=== PATIENT | male | born 1965 | race Caucasian/White ===

== ENCOUNTER 2017-05-26 15:34 | Inpatient (IN) | payer BC ==
[~2017-05-26] VITALS: Ht 180.3 cm; Wt 87.8 kg
[~2017-05-26 15:34] MED LIST: ATOR40TA PO; INSU100C SQ; INSU100V8 SQ; LEVO750T5 PO; LISI40TA PO; OXYC-328 PO; PIOG45TA40 PO
[2017-05-26 17:40] VITALS: BP 150/93
[2017-05-26] MEDS ORDERED: DEXT30CA6 PO (19:01)
[2017-05-26 19:15] VITALS: BP 136/75
[2017-05-26] MEDS ORDERED: DEXTROSE 50% 25 GM / 50ML DISP.SYRIN. IV PRN (19:30)
[2017-05-26] MEDS ORDERED: VANCOMYCIN 2 GM in IV NORMAL SALINE 500ML BAG 500 ML IV SCH (19:45)
[2017-05-26] MEDS ORDERED: oxyCODONE/APAP 10/325 1 TAB TABLET PO PRN (19:45)
[2017-05-26] MEDS: PIPERACILLIN/TAZOBACTAM 3.375 GM in IV NORMAL SALINE 50ML 50 ML IV SCH (20:00)
[2017-05-26 20:07] LABS: BASO # 0.1 x10^3/uL (0.0-0.2); BASO % 1 % (0-3); EOS % 1 % (0-3); HEMATOCRIT 44.4 % (39.0-53.0); HEMOGLOBIN 15.1 g/dL (13.0-17.5); LYMPH % 24 % (24-48); MEAN CORPUSCULAR HEMOGLOBIN 31 pg (25-35); MEAN CORPUSCULAR HGB CONC 34 g/dL (31-37); MEAN CORPUSCULAR VOLUME 92 fL (79-100); MONO % 10 % (0-9); NEUT % 65 % (31-73); PLATELET COUNT 238 x10^3/uL (140-400); RED BLOOD COUNT 4.84 x10^6/uL (4.30-5.70); RED CELL DISTRIBUTION WIDTH 12.6 % (11.5-14.5); WHITE BLOOD COUNT 8.3 x10^3/uL (4.0-11.0)
[2017-05-26 20:36] LABS: ALBUMIN/GLOBULIN RATIO 0.7 (1.0-1.7); CALCIUM 9.2 mg/dL (8.5-10.1); GFR 79.4; POTASSIUM 4.4 mmol/L (3.5-5.1); TOTAL BILIRUBIN 0.4 mg/dL (0.2-1.0); TOTAL PROTEIN 7.2 g/dL (6.4-8.2)
[2017-05-26] MEDS ORDERED: INSULIN ASPART 300 UNITS/3 ML INSULN.PEN SQ ONE (20:45)
[2017-05-26] MEDS: INSULIN DETEMIR 300 UNITS/3 ML INSULN.PEN. SQ SCH (21:20)
[2017-05-26] MEDS: VANCOMYCIN PER PHARMACY MC PRN (21:28)
[2017-05-26] MEDS ORDERED: OXYC1TAB9 PO (22:54)
[2017-05-26 23:14] VITALS: BP 152/88
[2017-05-26] MEDS: oxyCODONE/APAP 10/325 1 TAB TABLET PO PRN (23:19)
[2017-05-27] MEDS: PIPERACILLIN/TAZOBACTAM 3.375 GM in IV NORMAL SALINE 50ML 50 ML IV SCH ×5 (00:06→23:46)
[2017-05-27 03:12] VITALS: BP 142/74
[2017-05-27] MEDS: oxyCODONE/APAP 10/325 1 TAB TABLET PO PRN ×4 (06:26→23:47)
[2017-05-27 07:00] VITALS: BP 136/87
[2017-05-27] MEDS ORDERED: INSULIN LISPRO 30 UNIT SQ SCH (07:30)
[2017-05-27] MEDS: INSULIN ASPART 300 UNITS/3 ML INSULN.PEN SQ SCH ×5 (08:01→17:31)
[2017-05-27] MEDS: NON FORMULARY ITEM (Dextroamphetamine/Amphetamine (Adderall Xr 30 Mg Capsule) 1 CAP) PO SCH (08:07)
--- NOTE | 2017-05-27 08:57 | PDOC2 ---
CONSULT Date of Consult Date of Consult DATE: 05/27/17 TIME: 08:49 Reason for Consult Reason for Consult: R great toe osteo Referring Physician Referring Physician: Clarence Identification/Chief Complaint Chief Complaint R great toe pain Problems: Source Source: Patient History of Present Illness Reason for Visit: R great toe wound, non healing for several months, Doesnt remember any antecedent trauma. Pain is worse with ambulation, radiates to foot. Feels better at rest. Also c/o leg pain, R > L, with activity, that is similar to his symptoms that he had prior to his RLE bypass procedure Past Medical History Cardiovascular: Other Pulmonary: No pertinent hx CENTRAL NERVOUS SYSTEM: Periperal neuropathy (PVD) Endocrine: Diabetes Past Surgical History Past Surgical History L 5th finger, vascular bypass Family History Family History: Hypertension Social History 1 pack per day ALCOHOL: occassional Current Medications Current Medications Current Medications Piperacillin Sod/ Tazobactam Sod 3.375 gm/Sodium Chloride 50 ml @ 100 mls/hr Q6HRS IV Last administered on 05/27/17 06:26; Start 05/26/17 at 20:00 Vancomycin HCl (Vanco Per Pharmacy) 1 each PRN DAILY PRN MC SEE COMMENTS Last administered on 05/26/17 21:28; Start 05/26/17 at 19:30 Insulin Aspart (NovoLOG) 0-5 UNITS TIDWMEALS SQ Last administered on 05/27/17 08:01; Start 05/27/17 at 08:00 Dextrose (Dextrose 50%-Water Syringe) 12.5 gm PRN Q15MIN PRN IV SEE COMMENTS; Start 05/26/17 at 19:30 Oxycodone/ Acetaminophen (Percocet 10/325) 1 tab PRN Q4HRS PRN PO PAIN; Start 05/26/17 at 19:45 Non-Formulary Medication 1 cap DAILY PO ; Start 05/27/17 at 09:00; Status UNV Insulin Detemir (Levemir) 60 units QHS SQ Last administered on 05/26/17 21:20; Start 05/26/17 at 21:00 Non-Formulary Medication 30 unit DAILYAC SQ ; Start 05/27/17 at 07:30; Stop at 08:06; Status DC Vancomycin HCl 2 gm/Sodium Chloride 500 ml @ 250 mls/hr Q24H IV Last administered on 05/26/17 21:13; Start 05/26/17 at 19:45 Insulin Aspart (NovoLOG) 7 units 1X ONCE SQ Last administered on 05/26/17 21: 19; Start 05/26/17 at 20:45; Stop 05/26/17 at 20:46; Status DC Vancomycin HCl 1.25 gm/Sodium Chloride 250 ml @ 167 mls/hr Q12H IV ; Start 05/27 at 09:30 Vancomycin HCl 1 each 1X ONCE MC ; Start 05/28/17 at 09:00; Stop 05/28/17 at 09: 01 Oxycodone/ Acetaminophen (Percocet 10/325) 2 tab PRN Q4HRS PRN PO PAIN Last administered on 05/27/17 06:26; Start 05/26/17 at 23:00 Insulin Aspart (NovoLOG) 30 units TIDAC SQ ; Start 05/27/17 at 11:30 Active Scripts Active Reported Oxycodone-Acetaminophen 10-325 (Oxycodone Hcl/Acetaminophen) 1 Each Tablet 2 Tab PO PRN Q4HRS PRN Adderall Xr 30 Mg Capsule (Dextroamphetamine/Amphetamine) 30 Mg Cap.er.24h 1 Cap PO DAILY Humalog (Insulin Lispro) 100 Unit/1 Ml Cartridge 30 Unit SQ DAILYAC Lantus (Insulin Glargine,Hum.rec.anlog) 100 Unit/1 Ml Vial 60 Unit SQ HS Percocet 10-325 Mg Tablet (Oxycodone/Acetaminophen) 1 Each Tablet 1 Tab PO Q4HRS PRN Allergies Allergies: Coded Allergies: sulfamethoxazole (Verified Allergy, Intermediate, Rash, 07/12/15) trimethoprim (Verified Allergy, Intermediate, Rash, 07/12/15) ROS General: No: Chills, Night Sweats, Fatigue, Malaise, Appetite, Other PSYCHOLOGICAL ROS: No: Anxiety, Behavioral Disorder, Concentration difficultie , Decreased libido, Depression, Disorientation, Hallucinations, Hostility, Irritablity, Memory difficulties, Mood Swings, Obsessive thoughts, Physical abuse, Sexual abuse, Sleep disturbances, Suicidal ideation, Other Eyes: No Blurry vision, No Decreased vision, No Double vision, No Dry eyes, No Excessive tearing, No Eye Pain, No Itchy Eyes, No Loss of vision, No Photophobia , No Scotomata, No Uses contacts, No Uses glasses, No Other HEENT: No: Heacaches, Visual Changes, Hearing change, Nasal congestion, Nasal discharge, Oral lesions, Sinus pain, Sore Throat, Epistaxis, Sneezing, Snoring, Tinnitus, Vertigo, Vocal changes, Other Hematological and Lymphatic: No: Bleeding Problems, Blood Clots, Blood Transfusions, Brusing, Night Sweats, Pallor, Swollen Lymph Nodes, Other ENDOCRINE: No: Breast Changes, Galactorrhea, Hair Pattern Changes, Hot Flashes , Malaise/lethargy, Mood Swings, Palpitations, Polydipsia/polyuria, Skin Changes , Temperature Intolerance, Unexpected Weight Changes, Other Respiratory: No: Cough, Hemoptysis, Orthopnea, Pleuritic Pain, Shortness of breath, SOB with excertion, Sputum Changes, Stridor, Tachypnea, Wheezing, Other Cardiovascular: No Chest Pain, No Palpitations, No Orthopnea, No Paroxysmal Noc. Dyspnea, No Edema, No Lt Headedness, No Other Musculoskeletal: Yes Joint Pain, Yes Muscle Pain, Yes Muscular Weakness Neurological: Yes Numbness/Tingling Physical Exam General: Alert, Oriented X3 HEENT: Atraumatic, PERRLA Lungs: Clear to auscultation, Normal air movement Heart: Regular rate Abdomen: Normal bowel sounds, Soft Extremities: No cyanosis, No edema, Other (unable to palpate DP bilaterally) Neuro: Strength at 5/5 X4 ext, Other (decreased sensation bilateral feet) Psych/Mental Status: Mental status NL, Mood NL MUSCULOSKELETAL: Other (2 cm wound with dry eschar over medial R great toe. surrounding erythema) Vitals VITALS Vital Signs Date Time Temp Pulse Resp B/P (MAP) Pulse Ox O2 Delivery O2 Flow Rate FiO2 05/27/17 07:30 Room Air 05/27/17 07:00 97.7 83 16 136/87 (103) 95 97.7 Labs Labs Laboratory Tests Test 05/26/17 19:50 05/26/17 20:44 05/27/17 07:27 White Blood Count 8.3 x10^3/uL (4.0-11.0) Red Blood Count 4.84 x10^6/uL (4.30-5.70) Hemoglobin 15.1 g/dL (13.0-17.5) Hematocrit 44.4 % (39.0-53.0) Mean Corpuscular Volume 92 fL (79-100) Mean Corpuscular Hemoglobin 31 pg (25-35) Mean Corpuscular Hemoglobin Concent 34 g/dL (31-37) Red Cell Distribution Width 12.6 % (11.5-14.5) Platelet Count 238 x10^3/uL (140-400) Neutrophils (%) (Auto) 65 % (31-73) Lymphocytes (%) (Auto) 24 % (24-48) Monocytes (%) (Auto) 10 % (0-9) Eosinophils (%) (Auto) 1 % (0-3) Basophils (%) (Auto) 1 % (0-3) Neutrophils # (Auto) 5.4 x10^3uL (1.8-7.7) Lymphocytes # (Auto) 2.0 x10^3/uL (1.0-4.8) Monocytes # (Auto) 0.8 x10^3/uL (0.0-1.1) Eosinophils # (Auto) 0.1 x10^3/uL (0.0-0.7) Basophils # (Auto) 0.1 x10^3/uL (0.0-0.2) Erythrocyte Sedimentation Rate 26 (0-15) Sodium Level 130 mmol/L (136-145) Potassium Level 4.4 mmol/L (3.5-5.1) Chloride Level 93 mmol/L (98-107) Carbon Dioxide Level 28 mmol/L (21-32) Anion Gap 9 (6-14) Blood Urea Nitrogen 19 mg/dL (8-26) Creatinine 1.0 mg/dL (0.7-1.3) Estimated GFR (Cockcroft-Gault) 79.4 BUN/Creatinine Ratio 19 (6-20) Glucose Level 525 mg/dL (70-99) Calcium Level 9.2 mg/dL (8.5-10.1) Total Bilirubin 0.4 mg/dL (0.2-1.0) Aspartate Amino Transf (AST/SGOT) 17 U/L (15-37) Alanine Aminotransferase (ALT/SGPT) 40 U/L (16-63) Alkaline Phosphatase 260 U/L (46-116) Total Protein 7.2 g/dL (6.4-8.2) Albumin 3.0 g/dL (3.4-5.0) Albumin/Globulin Ratio 0.7 (1.0-1.7) Glucose (Fingerstick) 507 mg/dL (70-99) 224 mg/dL (70-99) Laboratory Tests Test 05/26/17 19:50 05/26/17 20:44 05/27/17 07:27 White Blood Count 8.3 x10^3/uL (4.0-11.0) Red Blood Count 4.84 x10^6/uL (4.30-5.70) Hemoglobin 15.1 g/dL (13.0-17.5) Hematocrit 44.4 % (39.0-53.0) Mean Corpuscular Volume 92 fL (79-100) Mean Corpuscular Hemoglobin 31 pg (25-35) Mean Corpuscular Hemoglobin Concent 34 g/dL (31-37) Red Cell Distribution Width 12.6 % (11.5-14.5) Platelet Count 238 x10^3/uL (140-400) Neutrophils (%) (Auto) 65 % (31-73) Lymphocytes (%) (Auto) 24 % (24-48) Monocytes (%) (Auto) 10 % (0-9) Eosinophils (%) (Auto) 1 % (0-3) Basophils (%) (Auto) 1 % (0-3) Neutrophils # (Auto) 5.4 x10^3uL (1.8-7.7) Lymphocytes # (Auto) 2.0 x10^3/uL (1.0-4.8) Monocytes # (Auto) 0.8 x10^3/uL (0.0-1.1) Eosinophils # (Auto) 0.1 x10^3/uL (0.0-0.7) Basophils # (Auto) 0.1 x10^3/uL (0.0-0.2) Erythrocyte Sedimentation Rate 26 (0-15) Sodium Level 130 mmol/L (136-145) Potassium Level 4.4 mmol/L (3.5-5.1) Chloride Level 93 mmol/L (98-107) Carbon Dioxide Level 28 mmol/L (21-32) Anion Gap 9 (6-14) Blood Urea Nitrogen 19 mg/dL (8-26) Creatinine 1.0 mg/dL (0.7-1.3) Estimated GFR (Cockcroft-Gault) 79.4 BUN/Creatinine Ratio 19 (6-20) Glucose Level 525 mg/dL (70-99) Calcium Level 9.2 mg/dL (8.5-10.1) Total Bilirubin 0.4 mg/dL (0.2-1.0) Aspartate Amino Transf (AST/SGOT) 17 U/L (15-37) Alanine Aminotransferase (ALT/SGPT) 40 U/L (16-63) Alkaline Phosphatase 260 U/L (46-116) Total Protein 7.2 g/dL (6.4-8.2) Albumin 3.0 g/dL (3.4-5.0) Albumin/Globulin Ratio 0.7 (1.0-1.7) Glucose (Fingerstick) 507 mg/dL (70-99) 224 mg/dL (70-99) Images Images Foot xrays interpreted by myself, erosion of distal phalanx R great toe Assessment/Plan Assessment/Plan R great toe osteo, hx DM and PVD OR tomorrow morning for amp Doppler to check vessels, may need Vascular consult BRYAN CHEEMA II, MD May 27, 2017 08:56
[2017-05-27] MEDS ORDERED: VANCOMYCIN 1.25 GM in IV NORMAL SALINE 250ML 250 ML IV SCH (09:30)
--- NOTE | 2017-05-27 09:31 | PDOC ---
GENERAL General: vss and afebrile. wbc normal and esr only 26. has osteomyelitis on mri of distal phalanx of right great toe with osteomyelitis. sugars very high on admit and better this am. can't dictated H&P due to system being down. ortho and ID consulted. prior vascular intervention on right leg with claudication symptoms now so will need vascular eval prior to amputation. discussed with ortho. Problems: VITAL SIGNS Vital Signs: Vital Signs Date Time Temp Pulse Resp B/P (MAP) Pulse Ox O2 Delivery O2 Flow Rate FiO2 05/27/17 07:45 Room Air 05/27/17 07:00 97.7 83 16 136/87 (103) 95 97.7 I & O I & O Intake and Output 05/27/17 07:00 Intake Total 1690 ml Balance 1690 ml Intake Oral 1140 ml IV Total 550 ml # Voids 3 ALLERGIES Allergies: Allergies Coded Allergies Type Severity Reaction Last Updated Verified sulfamethoxazole Allergy Intermediate Rash 07/12/15 Yes trimethoprim Allergy Intermediate Rash 07/12/15 Yes MEDS Medications: Current Medications Medications (Trade) Dose Ordered Sig/Tory Start Time Stop Time Status Last Admin Dose Admin Dextrose (Dextrose 50%-Water Syringe) 12.5 gm PRN Q15MIN PRN 05/26/17 19:30 Insulin Aspart (NovoLOG) 30 units TIDAC 05/27/17 11:30 Insulin Detemir (Levemir) 60 units QHS 05/26/17 21:00 05/26/17 21:20 60 UNITS Non-Formulary Medication 30 unit DAILYAC 05/27/17 07:30 05/27/17 08:06 DC Oxycodone/ Acetaminophen (Percocet 10/325) 2 tab PRN Q4HRS PRN 05/26/17 23:00 05/27/17 06:26 2 TAB Piperacillin Sod/ Tazobactam Sod 3.375 gm/Sodium Chloride 50 ml @ 100 mls/hr Q6HRS 05/26/17 20:00 05/27/17 06:26 100 MLS/HR Vancomycin HCl 1 each 1X ONCE 05/28/17 09:00 05/28/17 09:01 Vancomycin HCl (Vanco Per Pharmacy) 1 each PRN DAILY PRN 05/26/17 19:30 05/26/17 21:28 1 EACH Vancomycin HCl 1.25 gm/Sodium Chloride 250 ml @ 167 mls/hr Q12H 05/27/17 09:30 Vancomycin HCl 2 gm/Sodium Chloride 500 ml @ 250 mls/hr Q24H 05/26/17 19:45 05/26/17 21:13 250 MLS/HR LAB Lab: Laboratory Tests Test 05/26/17 19:50 05/26/17 20:44 05/27/17 07:27 White Blood Count 8.3 x10^3/uL (4.0-11.0) Red Blood Count 4.84 x10^6/uL (4.30-5.70) Hemoglobin 15.1 g/dL (13.0-17.5) Hematocrit 44.4 % (39.0-53.0) Mean Corpuscular Volume 92 fL (79-100) Mean Corpuscular Hemoglobin 31 pg (25-35) Mean Corpuscular Hemoglobin Concent 34 g/dL (31-37) Red Cell Distribution Width 12.6 % (11.5-14.5) Platelet Count 238 x10^3/uL (140-400) Neutrophils (%) (Auto) 65 % (31-73) Lymphocytes (%) (Auto) 24 % (24-48) Monocytes (%) (Auto) 10 % (0-9) Eosinophils (%) (Auto) 1 % (0-3) Basophils (%) (Auto) 1 % (0-3) Neutrophils # (Auto) 5.4 x10^3uL (1.8-7.7) Lymphocytes # (Auto) 2.0 x10^3/uL (1.0-4.8) Monocytes # (Auto) 0.8 x10^3/uL (0.0-1.1) Eosinophils # (Auto) 0.1 x10^3/uL (0.0-0.7) Basophils # (Auto) 0.1 x10^3/uL (0.0-0.2) Erythrocyte Sedimentation Rate 26 (0-15) Sodium Level 130 mmol/L (136-145) Potassium Level 4.4 mmol/L (3.5-5.1) Chloride Level 93 mmol/L (98-107) Carbon Dioxide Level 28 mmol/L (21-32) Anion Gap 9 (6-14) Blood Urea Nitrogen 19 mg/dL (8-26) Creatinine 1.0 mg/dL (0.7-1.3) Estimated GFR (Cockcroft-Gault) 79.4 BUN/Creatinine Ratio 19 (6-20) Glucose Level 525 mg/dL (70-99) Calcium Level 9.2 mg/dL (8.5-10.1) Total Bilirubin 0.4 mg/dL (0.2-1.0) Aspartate Amino Transf (AST/SGOT) 17 U/L (15-37) Alanine Aminotransferase (ALT/SGPT) 40 U/L (16-63) Alkaline Phosphatase 260 U/L (46-116) Total Protein 7.2 g/dL (6.4-8.2) Albumin 3.0 g/dL (3.4-5.0) Albumin/Globulin Ratio 0.7 (1.0-1.7) Glucose (Fingerstick) 507 mg/dL (70-99) 224 mg/dL (70-99) PAT MOSHER MD May 27, 2017 09:31
--- NOTE | 2017-05-27 09:50 | RAD ---
Indication right great toe infection. AP and lateral views of the right foot were obtained. There is bony destruction involving the distal phalanx of the large toe. There is erosion of the cortical margin involving the entire tuft and medial aspect of the distal phalanx. The findings are compatible with osteomyelitis. Soft tissue swelling is additionally noted. IMPRESSION: Findings, as outlined above, associated with the distal phalanx of the great toe compatible with osteomyelitis
[2017-05-27 11:00] VITALS: BP 142/85
--- NOTE | 2017-05-27 11:53 | PDOC ---
Provider Note Provider Note VASCULAR dictation services down 51 y/o diabetic male smoker presents with pressure ulcer and suspected osteo first toe right foot. He has had a prior right fem-pop bypass on the right for claudication, symptoms re-occurred 6 mo ago. Exam weak right femoral pulse, absent pop and pedal pulses weak left femoral pulse weak left posterior tibial pulse right first toe eschar , medially right forefoot cellulitis IMP ischemic pressure ulcer right first toe PLAN: ABX, arterial imaging including probable angiogram, revascularization right foot and then digit amputation. SAM ROJAS MD May 27, 2017 11:52
[2017-05-27] MEDS: VANCOMYCIN PER PHARMACY MC PRN (13:35)
--- NOTE | 2017-05-27 14:52 | RAD ---
Indication nonhealing wound right foot. Grayscale color Doppler and spectral imaging was performed. The examination was targeted to the major arteries of the lower extremities. There is diminished flow in the right common femoral artery indicative of significant inlet disease or inherent stenosis associated with the common femoral artery. There is dampened monophasic waveform throughout the superficial femoral artery. Severely dampened monophasic waveform is seen distally in the SFA compatible with superimposed additional stenosis in the artery. The popliteal artery has a very markedly dampened monophasic waveform. Similar waveforms are seen in the posterior tibial artery the peroneal and dorsal pedal arteries. The anterior tibial artery is markedly dampened and monophasic. There is a graft from the common femoral artery into the SFA which appears occluded On the left there is a triphasic waveform associated with the common femoral artery and a biphasic waveform in the deep femoral. There are biphasic waveforms seen throughout the course of the superficial femoral artery indicative of a component of stenosis at the common femoral SFA junction. A similar biphasic waveform is seen in the popliteal artery. The posterior tibial artery has a predominantly biphasic waveform. No flow is seen in the peroneal artery. The dorsal pedal artery is dampened and monophasic. IMPRESSION: On the right there is significant disease involving the common femoral artery with additional marked stenosis in the distal SFA with significantly diminished flow to the vessels of the calf. On the left there is moderate disease but no suggested high-grade arterial stenosis in (although moderate superimposed disease in the vessels of the calf is likely).
[2017-05-27 15:00] VITALS: BP 133/80
[2017-05-27] MEDS: VANCOMYCIN 1.25 GM in IV NORMAL SALINE 250ML 250 ML IV SCH (18:12)
[2017-05-27 19:46] VITALS: BP 154/85
[2017-05-27] MEDS: INSULIN DETEMIR 300 UNITS/3 ML INSULN.PEN. SQ SCH (21:03)
[2017-05-27 23:21] VITALS: BP 143/79
[2017-05-28] VITALS (18 sets, daily range): BP systolic 128–155; BP diastolic 65–90
[2017-05-28] MEDS: VANCOMYCIN 1.25 GM in IV NORMAL SALINE 250ML 250 ML IV SCH ×2 (01:33→10:46)
[2017-05-28] MEDS: oxyCODONE/APAP 10/325 1 TAB TABLET PO PRN ×2 (05:07→17:21)
[2017-05-28] MEDS: PIPERACILLIN/TAZOBACTAM 3.375 GM in IV NORMAL SALINE 50ML 50 ML IV SCH ×3 (05:07→17:24)
[2017-05-28] MEDS: INSULIN ASPART 300 UNITS/3 ML INSULN.PEN SQ SCH ×6 (07:30→17:34)
[2017-05-28] MEDS ORDERED: fentaNYL PF VIAL 100 MCG/2 ML VIAL ONE ×2 (07:56→08:28)
[2017-05-28] MEDS ORDERED: LIDOCAINE 2% PF Vial for OR 5 ML VIAL. ONE (07:56)
[2017-05-28] MEDS ORDERED: PROPOFOL 20 ML IV ONE (07:56)
[2017-05-28] MEDS ORDERED: BUPIVACAINE MPF 0.5% 30 ML VIAL. ONE (08:01)
[2017-05-28] MEDS ORDERED: LIDOCAINE 1% PF 30 ML VIAL. ONE (08:01)
--- NOTE | 2017-05-28 08:16 | PDOC ---
GENERAL General: vss and afebrile. awake and alert. sugars little better and will increase long acting insulin and continue ss insulin. vascular surgery notes noted and agree with plan as outlined. exam stable. Problems: VITAL SIGNS Vital Signs: Vital Signs Date Time Temp Pulse Resp B/P (MAP) Pulse Ox O2 Delivery O2 Flow Rate FiO2 05/28/17 07:00 98.1 86 18 154/75 (101) 95 Room Air 98.1 I & O I & O Intake and Output 05/28/17 07:00 Intake Total 600 ml Output Total 1600 ml Balance -1000 ml Intake Oral 600 ml Output Urine Total 1600 ml # Voids 3 ALLERGIES Allergies: Allergies Coded Allergies Type Severity Reaction Last Updated Verified sulfamethoxazole Allergy Intermediate Rash 07/12/15 Yes trimethoprim Allergy Intermediate Rash 07/12/15 Yes MEDS Medications: Current Medications Medications (Trade) Dose Ordered Sig/Tory Start Time Stop Time Status Last Admin Dose Admin Bupivacaine HCl (Sensorcaine Mpf 0.5%) 30 ml STK-MED ONCE 05/28/17 08:01 05/28/17 08:02 DC Dextrose (Dextrose 50%-Water Syringe) 12.5 gm PRN Q15MIN PRN 05/26/17 19:30 Fentanyl Citrate (Fentanyl 2ml Vial) 100 mcg STK-MED ONCE 05/28/17 07:56 05/28/17 07:57 DC Insulin Aspart (NovoLOG) 30 units TIDAC 05/27/17 11:30 05/27/17 17:31 15 UNITS Insulin Detemir (Levemir) 60 units QHS 05/26/17 21:00 05/27/17 21:03 60 UNITS Lidocaine HCl 30 ml STK-MED ONCE 05/28/17 08:01 05/28/17 08:02 DC Lidocaine HCl (Lidocaine Pf 2% Vial) 5 ml STK-MED ONCE 05/28/17 07:56 05/28/17 07:57 DC Non-Formulary Medication 30 unit DAILYAC 05/27/17 07:30 05/27/17 08:06 DC Oxycodone/ Acetaminophen (Percocet 10/325) 2 tab PRN Q4HRS PRN 05/26/17 23:00 05/28/17 05:07 2 TAB Piperacillin Sod/ Tazobactam Sod 3.375 gm/Sodium Chloride 50 ml @ 100 mls/hr Q6HRS 05/26/17 20:00 05/28/17 05:07 100 MLS/HR Propofol 20 ml @ As Directed STK-MED ONCE 05/28/17 07:56 05/28/17 07:57 DC Vancomycin HCl (Vanco Per Pharmacy) 1 each PRN DAILY PRN 05/26/17 19:30 05/27/17 13:35 1 EACH Vancomycin HCl 1.25 gm/Sodium Chloride 250 ml @ 167 mls/hr Q8H 05/27/17 18:00 05/28/17 01:33 167 MLS/HR Vancomycin HCl 2 gm/Sodium Chloride 500 ml @ 250 mls/hr Q24H 05/26/17 19:45 05/27/17 12:24 DC 05/26/17 21:13 250 MLS/HR LAB Lab: Laboratory Tests Test 05/27/17 11:54 05/27/17 16:56 05/27/17 20:52 05/28/17 07:33 Glucose (Fingerstick) 353 mg/dL (70-99) 134 mg/dL (70-99) 295 mg/dL (70-99) 284 mg/dL (70-99) PAT MOSHER MD May 28, 2017 08:15
[2017-05-28] MEDS: NON FORMULARY ITEM (Dextroamphetamine/Amphetamine (Adderall Xr 30 Mg Capsule) 1 CAP) PO SCH (08:22)
--- NOTE | 2017-05-28 08:28 | PDOC ---
Provider Note Provider Note VASCULAR S: Patient without complaints, O: Alert and Ox3 VSS, afebrile right first toe eschar , medially right forefoot cellulitis BS 284 A/P: ischemic pressure ulcer right first toe Continue ABX Diabetes Management AARO with possible revascularization right foot later today YAKELIN IRWIN [employer] May 28, 2017 08:28
[2017-05-28] MEDS: IV RINGERS,LACTATED 1000ML 1,000 ML IV SCH ×2 (08:41→22:05)
[2017-05-28] MEDS ORDERED: fentaNYL PF VIAL 100 MCG/2 ML VIAL IV ONE (08:45)
[2017-05-28] MEDS ORDERED: DEXAMETHASONE SOD PHOS 20 MG/5 ML VIAL. ONE (09:02)
[2017-05-28] MEDS ORDERED: SEVOFLURANE 31 TO 60 MINUTES. IH ONE (09:02)
[2017-05-28] MEDS ORDERED: ONDANSETRON PF 4 MG/2 ML VIAL. ONE ×2 (09:02→09:15)
--- NOTE | 2017-05-28 09:06 | PDOC ---
Infectious Disease Note Vital Sign Vital Signs Vital Signs Date Time Temp Pulse Resp B/P (MAP) Pulse Ox O2 Delivery O2 Flow Rate FiO2 05/28/17 08:40 18 99 Room Air 05/28/17 08:30 98.2 92 149/81 98.2 Labs Lab Laboratory Tests Test 05/27/17 11:54 05/27/17 16:56 05/27/17 20:52 05/28/17 07:33 Glucose (Fingerstick) 353 mg/dL (70-99) 134 mg/dL (70-99) 295 mg/dL (70-99) 284 mg/dL (70-99) Objective Assessment Unable to see pt for 2 days Plan Plan of Care Tried to see this pt yesterday , he was out of the hospital and now he is in surgery. GAURI BECERRA MD May 28, 2017 09:06
[2017-05-28] MEDS ORDERED: IV RINGERS,LACTATED 1000ML 1,000 ML IV SCH (09:54)
[2017-05-28] MEDS ORDERED: ONDANSETRON PF 4 MG/2 ML VIAL. IV PRN (10:00)
[2017-05-28] MEDS ORDERED: INSULIN ASPART 100 UNIT/ML 10ML VIAL. SQ ONE (10:00)
[2017-05-28] MEDS ORDERED: fentaNYL PF VIAL 100 MCG/2 ML VIAL IV PRN ×2 (10:00)
[2017-05-28] MEDS ORDERED: HYDROmorphone 2 MG/ML VIAL IV PRN (10:00)
[2017-05-28] MEDS ORDERED: LIDOCAINE 1% 1 ML SYRINGE. ID PRN (10:00)
[2017-05-28] MEDS ORDERED: PROCHLORPERAZINE 10 MG/2 ML VIAL. IV PRN (10:00)
--- NOTE | 2017-05-28 10:01 | PDOC4 ---
Operative Note Operative Note Date of surgery: 05/28/2017 Surgeon: Truong Cheema MD Asst. Rosa Jimenez Preoperative diagnosis chronic osteomyelitis distal phalanx right toe Postoperative diagnosis: Same Procedure performed: #1 right great toe partial amputation #2 bone biopsy #3 irrigation and debridement Specimens toe was sent to pathology and bone was sent for culture. Blood loss 25 mL Complications none Anesthesia Gen. Reason for procedure: The patient is a 51-year-old gentleman with a history of peripheral vascular disease and diabetes. He had a wound over his toe that had failed to heal for several months. Because worsening pain and swelling he presented to the emergency department. I had seen him in consultation. Please see my note for further details. He had been evaluated by vascular surgery and was being worked up for his peripheral vascular disease. He and I had a discussion of the risks benefits and alternatives to the above surgery and he elected to proceed. Due to the amount of bony erosion, I do not think a wound debridement would afford him any benefit and despite the importance of the great toe and ambulation, I felt this was her only and best reasonable option. Description of procedure: Patient was greeted in the preoperative holding area where the correct digit was marked and identified. He was taken back to the operative suite and maintained on his scheduled antibiotics. Once in the OR, he was transferred gently supine to the OR table and secured to the bed after successful induction of a general anesthesia. We applied a nonsterile tourniquet to his right thigh but did not use it for this case. He was prepped and draped in our usual sterile fashion and then we conducted our standard preoperative timeout. I began the procedure by drawing a line to excise the chronic sinus and preserve as much viable tissue as possible and then incised over this line with my scalpel down to bone. I then used a freer to identify the interphalangeal joint and used my scalpel to separate the distal phalanx from the remainder of the toe and delivered from the operative field. I took a Ronjair and a sample of bone sent off as a separate specimen for culture from the distal phalanx. I inspected the wound bed there was some bleeding adjacent to the borders of the proximal phalanx which were cauterized. He did have some other losing around the skin. Overall, I felt the remaining tissue appeared viable. There was some maceration of the skin medially but I elected to leave it intact. I then proceeded to irrigate out the wound bed with 2000 mL of sterile normal saline and then closed skin with a combination of vertical mattress and simple interrupted 2-0 nylon. Prior to accomplishing wound closure all culture report is correct 2. I had accomplished a fairly tension-free wound closure and was happy with it. I then washed and dried the patella and foot and ankle. Xeroform was applied over the incision followed by sterile gauze sterile cast padding and an Sharan wrap. Patient tolerated surgery well. No complications. At the conclusion of surgery he was awakened from anesthesia and transferred gently supine to the recovery room cart and taken to PACU in stable Condition. Postop plan is to readmit him to the care of his primary care physician. He will be on antibiotics per infectious disease. We will follow up with his cultures. TRUONG CHEEMA II, MD May 28, 2017 10:01
[2017-05-28] MEDS: MORPHINE SULFATE 2 MG/ML DISP.SYRIN. IV PRN ×2 (10:27→10:45)
--- NOTE | 2017-05-28 11:15 | PDOC2 ---
IM Consult Referring physician Dr Harrison, for toe infection Date of Admission DATE: 05/28/17 TIME: 11:10 Chief Complaint Chief Complaint This year old male has been admitted with a chief complaint of . toe infection , for 2 mths now has amputation done today Problems: Past Medical History Cardiovascular: HTN, Other Pulmonary: No pertinent hx CENTRAL NERVOUS SYSTEM: Periperal neuropathy Endocrine: Diabetes Past Family History Family History: Hypertension Past Social History PSH pt does smoke, no etoh or drugs Review of Symptoms Review of Symptoms General ROS: positive for - Psychological ROS: negative Ophthalmic ROS: negative ENT ROS: negative Allergy and Immunology ROS: negative Hematology and Lymphatic: negative Endocrine ROS: negative Respiratory ROS: no cold, cough, dyspnea. Cardiovascular ROS: no chest pain or dyspnea on exertion Gastrointestinal ROS: no abdominal pain, change in bowel habits, or black or bloody stools Genito-Urinary ROS: no dysuria, trouble voiding, or hematuria Musculoskeletal ROS: no pain Neurological ROS: negative Dermatological ROS: no rash Medications Current Medications Bupivacaine HCl (Sensorcaine Mpf 0.5%) 30 ml STK-MED ONCE .ROUTE ; Start at 08:01; Stop 05/28/17 at 08:02; Status DC Dexamethasone Sodium Phosphate (Decadron) 20 mg STK-MED ONCE .ROUTE ; Start 05/28 at 09:02; Stop 05/28/17 at 09:03; Status DC Fentanyl Citrate (Fentanyl 2ml Vial) 25 mcg PRN Q5MIN PRN IV MILD PAIN; Start 05/28/17 at 10:00; Stop 05/29/17 at 09:59 Fentanyl Citrate (Fentanyl 2ml Vial) 50 mcg 1X ONCE IV Last administered on t 08:40; Start 05/28/17 at 08:45; Stop 05/28/17 at 08:50; Status DC Fentanyl Citrate (Fentanyl 2ml Vial) 50 mcg PRN Q5MIN PRN IV MODERATE PAIN; Start 05/28/17 at 10:00; Stop 05/29/17 at 09:59 Fentanyl Citrate (Fentanyl 2ml Vial) 100 mcg STK-MED ONCE .ROUTE ; Start at 07:56; Stop 05/28/17 at 07:57; Status DC Fentanyl Citrate (Fentanyl 2ml Vial) 100 mcg STK-MED ONCE .ROUTE ; Start at 08:28; Stop 05/28/17 at 08:29; Status DC Hydromorphone HCl (Dilaudid) 0.5 mg PRN Q10MIN PRN IV SEV PAIN, Second choice; Start 05/28/17 at 10:00; Stop 05/29/17 at 09:59 Insulin Aspart (NovoLOG VIAL) 6 unit 1X ONCE SQ Last administered on 05/28/17 10:01; Start 05/28/17 at 10:00; Stop 05/28/17 at 10:03; Status DC Insulin Aspart (NovoLOG) 30 units TIDAC SQ Last administered on 05/27/17 17:31 ; Start 05/27/17 at 11:30 Insulin Detemir (Levemir) 20 units QHS SQ ; Start 05/28/17 at 21:00 Lidocaine HCl 2 ml PRN 1X PRN ID PRIOR TO IV START; Start 05/28/17 at 10:00; Stop 05/29/17 at 09:59 Lidocaine HCl 30 ml STK-MED ONCE .ROUTE ; Start 05/28/17 at 08:01; Stop 05/28/17 at 08:02; Status DC Lidocaine HCl (Lidocaine Pf 2% Vial) 5 ml STK-MED ONCE .ROUTE ; Start 05/28/17 at 07:56; Stop 05/28/17 at 07:57; Status DC Morphine Sulfate 1 mg PRN Q10MIN PRN IV SEVERE PAIN Last administered on 10:45; Start 05/28/17 at 10:00; Stop 05/29/17 at 09:59 Ondansetron HCl (Zofran) 4 mg PRN Q6HRS PRN IV NAUSEA/VOMITING; Start 05/28/17 at 10:00; Stop 05/29/17 at 09:59 Ondansetron HCl (Zofran) 4 mg STK-MED ONCE .ROUTE ; Start 05/28/17 at 09:02; Stop 05/28/17 at 09:03; Status DC Ondansetron HCl (Zofran) 4 mg STK-MED ONCE .ROUTE ; Start 05/28/17 at 09:15; Stop 05/28/17 at 09:16; Status DC Prochlorperazine Edisylate (Compazine) 5 mg PACU PRN PRN IV NAUSEA, MRX1; Start 05/28/17 at 10:00; Stop 05/29/17 at 09:59 Propofol 20 ml @ As Directed STK-MED ONCE IV ; Start 05/28/17 at 07:56; Stop 05/28 at 07:57; Status DC Ringer's Solution 1,000 ml @ 30 mls/hr Q24H IV ; Start 05/28/17 at 09:54; Stop 05/28/17 at 21:53 Ringer's Solution 1,000 ml @ 75 mls/hr [id number] IV Last administered on 08:41; Start 05/28/17 at 08:45 Sevoflurane (Ultane) 30 ml STK-MED ONCE IH ; Start 05/28/17 at 09:02; Stop at 09:03; Status DC Vancomycin HCl 1 each 1X ONCE MC ; Start 05/28/17 at 09:30; Stop 05/28/17 at 09: 31; Status DC Vancomycin HCl 1.25 gm/Sodium Chloride 250 ml @ 167 mls/hr Q8H IV Last administered on 05/28/17 10:46; Start 05/27/17 at 18:00 Allergy Allergies Coded Allergies Type Severity Reaction Last Updated Verified sulfamethoxazole Allergy Intermediate Rash 07/12/15 Yes trimethoprim Allergy Intermediate Rash 07/12/15 Yes Physical Exam Physical Exam General appearance - alert,well appearing, and in no distress and oriented to person, place, and time Mental Status - alert, oriented to person, place, and time, affect appropriate to mood Head - normal Chest - clear to auscultation, no wheezes, rales or rhonchi, symmetric air entry Heart - S1 and S2 normal Abdomen - soft, nontender, nondistended, no masses or organomegaly Neurological - alert and oriented Musculoskeletal - no muscular tenderness noted Extremities - no pedal edema,, rt big toe amp, post surgery dressing not opened Skin - warm and dry Labs Laboratory Tests Test 05/26/17 19:50 05/26/17 20:44 05/27/17 07:27 05/27/17 11:54 White Blood Count 8.3 x10^3/uL (4.0-11.0) Red Blood Count 4.84 x10^6/uL (4.30-5.70) Hemoglobin 15.1 g/dL (13.0-17.5) Hematocrit 44.4 % (39.0-53.0) Mean Corpuscular Volume 92 fL (79-100) Mean Corpuscular Hemoglobin 31 pg (25-35) Mean Corpuscular Hemoglobin Concent 34 g/dL (31-37) Red Cell Distribution Width 12.6 % (11.5-14.5) Platelet Count 238 x10^3/uL (140-400) Neutrophils (%) (Auto) 65 % (31-73) Lymphocytes (%) (Auto) 24 % (24-48) Monocytes (%) (Auto) 10 % (0-9) Eosinophils (%) (Auto) 1 % (0-3) Basophils (%) (Auto) 1 % (0-3) Neutrophils # (Auto) 5.4 x10^3uL (1.8-7.7) Lymphocytes # (Auto) 2.0 x10^3/uL (1.0-4.8) Monocytes # (Auto) 0.8 x10^3/uL (0.0-1.1) Eosinophils # (Auto) 0.1 x10^3/uL (0.0-0.7) Basophils # (Auto) 0.1 x10^3/uL (0.0-0.2) Erythrocyte Sedimentation Rate 26 (0-15) Sodium Level 130 mmol/L (136-145) Potassium Level 4.4 mmol/L (3.5-5.1) Chloride Level 93 mmol/L (98-107) Carbon Dioxide Level 28 mmol/L (21-32) Anion Gap 9 (6-14) Blood Urea Nitrogen 19 mg/dL (8-26) Creatinine 1.0 mg/dL (0.7-1.3) Estimated GFR (Cockcroft-Gault) 79.4 BUN/Creatinine Ratio 19 (6-20) Glucose Level 525 mg/dL (70-99) Calcium Level 9.2 mg/dL (8.5-10.1) Total Bilirubin 0.4 mg/dL (0.2-1.0) Aspartate Amino Transf (AST/SGOT) 17 U/L (15-37) Alanine Aminotransferase (ALT/SGPT) 40 U/L (16-63) Alkaline Phosphatase 260 U/L (46-116) Total Protein 7.2 g/dL (6.4-8.2) Albumin 3.0 g/dL (3.4-5.0) Albumin/Globulin Ratio 0.7 (1.0-1.7) Glucose (Fingerstick) 507 mg/dL (70-99) 224 mg/dL (70-99) 353 mg/dL (70-99) Test 05/27/17 16:56 05/27/17 20:52 05/28/17 07:33 05/28/17 09:51 Glucose (Fingerstick) 134 mg/dL (70-99) 295 mg/dL (70-99) 284 mg/dL (70-99) 244 mg/dL (70-99) Test 05/28/17 10:45 Vancomycin Level Trough 11.5 mcg/mL (10.0-20.0) Vancomycin Last Dose Date 05/28/17 Vancomycin Last Dose Time 0133 Laboratory Tests Test 05/27/17 11:54 05/27/17 16:56 05/27/17 20:52 05/28/17 07:33 Glucose (Fingerstick) 353 mg/dL (70-99) 134 mg/dL (70-99) 295 mg/dL (70-99) 284 mg/dL (70-99) Test 05/28/17 09:51 05/28/17 10:45 Glucose (Fingerstick) 244 mg/dL (70-99) Vancomycin Level Trough 11.5 mcg/mL (10.0-20.0) Vancomycin Last Dose Date 05/28/17 Vancomycin Last Dose Time 0133 Vitals Vital Signs Date Time Temp Pulse Resp B/P (MAP) Pulse Ox O2 Delivery O2 Flow Rate FiO2 05/28/17 10:45 20 99 Room Air 05/28/17 10:39 85 139/80 05/28/17 10:24 97.9 97.9 05/28/17 09:54 [address] st toe osteomyelitis, s/p amputation DM PAD Non compliance Plan Plan cont antibiotics for now will soon to change to po once able to see amp site PAD workup pending adv to quit smoking GAURI BECERRA MD May 28, 2017 11:15
[2017-05-28 11:21] LABS: INR 0.9 (0.8-1.1); PROTHROMBIN TIME PATIENT 11.7 SEC (11.7-14.0)
[2017-05-28] MEDS: VANCOMYCIN PER PHARMACY MC PRN (11:31)
[2017-05-28] MEDS ORDERED: HEPARIN for ARTERIAL LINE 1,500 ML ONE (14:52)
[2017-05-28] MEDS ORDERED: IODIXANOL 320MG/ML 50ML VIAL. ONE (14:52)
[2017-05-28] MEDS ORDERED: IOHEXOL 300 MG/ML 100ML VIAL. ONE (14:52)
[2017-05-28] MEDS ORDERED: LIDOCAINE 1% / SOD BICARB 8.4% 20 ML VIAL. IJ ONE ×2 (14:52→15:30)
[2017-05-28] MEDS ORDERED: IODIXANOL 320 MG/ML 100 ML VIAL. ONE (14:53)
[2017-05-28] MEDS ORDERED: MIDAZOLAM HCL/PF 5 MG/5 ML VIAL. ONE (15:01)
[2017-05-28] MEDS ORDERED: fentaNYL PF VIAL 250 MCG/5 ML VIAL ONE (15:01)
[2017-05-28] MEDS ORDERED: fentaNYL PF VIAL 250 MCG/5 ML VIAL IV ONE (15:30)
[2017-05-28] MEDS ORDERED: IOHEXOL 300 MG/ML 100ML VIAL. IART ONE (15:30)
[2017-05-28] MEDS ORDERED: MIDAZOLAM HCL/PF 5 MG/5 ML VIAL. IV ONE (15:30)
[2017-05-28] MEDS ORDERED: IODIXANOL 320 MG/ML 100 ML VIAL. IART ONE (15:30)
[2017-05-28] MEDS ORDERED: CONTRAST GIVEN MC PRN (15:45)
--- NOTE | 2017-05-28 15:49 | PDOC ---
SURGICAL PROGRESS NOTE Subjective Patient was seen and examined today and is resting comfortably. He is awaiting angiography by interventional radiology. Vital Signs Vital Signs Date Time Temp Pulse Resp B/P (MAP) Pulse Ox O2 Delivery O2 Flow Rate FiO2 05/28/17 13:00 97 14 132/77 (95) 95 Room Air 05/28/17 11:00 97.7 97.7 05/28/17 09:54 10 I&O Intake and Output 05/28/17 07:00 Intake Total 600 ml Output Total 1600 ml Balance -1000 ml Intake Oral 600 ml Output Urine Total 1600 ml # Voids 3 General: Alert, Oriented X3, Cooperative, No acute distress HEENT: Atraumatic, PERRLA Lungs: Clear to auscultation, Normal air movement Heart: Regular rate, Normal S1, Normal S2, No murmurs, Gallops, Rubs Abdomen: Normal bowel sounds, Soft, No tenderness, No hepatosplenomegaly, No masses Extremities: No clubbing, No cyanosis, No edema, Other (the patient has Doppler vascular signals intact bilaterally. Pulses are nonpalpable bilaterally. Surgical dressing is in place to the right first toe.) Skin: No rashes, Other (surgical wound covered at great toe amputation site) Neuro: Normal speech, Strength at 5/5 X4 ext, Normal tone, Sensation intact, Cranial nerves 3-12 NL Labs Laboratory Tests Test 05/26/17 19:50 05/26/17 20:44 05/27/17 07:27 05/27/17 11:54 White Blood Count 8.3 x10^3/uL (4.0-11.0) Red Blood Count 4.84 x10^6/uL (4.30-5.70) Hemoglobin 15.1 g/dL (13.0-17.5) Hematocrit 44.4 % (39.0-53.0) Mean Corpuscular Volume 92 fL (79-100) Mean Corpuscular Hemoglobin 31 pg (25-35) Mean Corpuscular Hemoglobin Concent 34 g/dL (31-37) Red Cell Distribution Width 12.6 % (11.5-14.5) Platelet Count 238 x10^3/uL (140-400) Neutrophils (%) (Auto) 65 % (31-73) Lymphocytes (%) (Auto) 24 % (24-48) Monocytes (%) (Auto) 10 % (0-9) Eosinophils (%) (Auto) 1 % (0-3) Basophils (%) (Auto) 1 % (0-3) Neutrophils # (Auto) 5.4 x10^3uL (1.8-7.7) Lymphocytes # (Auto) 2.0 x10^3/uL (1.0-4.8) Monocytes # (Auto) 0.8 x10^3/uL (0.0-1.1) Eosinophils # (Auto) 0.1 x10^3/uL (0.0-0.7) Basophils # (Auto) 0.1 x10^3/uL (0.0-0.2) Erythrocyte Sedimentation Rate 26 (0-15) Sodium Level 130 mmol/L (136-145) Potassium Level 4.4 mmol/L (3.5-5.1) Chloride Level 93 mmol/L (98-107) Carbon Dioxide Level 28 mmol/L (21-32) Anion Gap 9 (6-14) Blood Urea Nitrogen 19 mg/dL (8-26) Creatinine 1.0 mg/dL (0.7-1.3) Estimated GFR (Cockcroft-Gault) 79.4 BUN/Creatinine Ratio 19 (6-20) Glucose Level 525 mg/dL (70-99) Calcium Level 9.2 mg/dL (8.5-10.1) Total Bilirubin 0.4 mg/dL (0.2-1.0) Aspartate Amino Transf (AST/SGOT) 17 U/L (15-37) Alanine Aminotransferase (ALT/SGPT) 40 U/L (16-63) Alkaline Phosphatase 260 U/L (46-116) Total Protein 7.2 g/dL (6.4-8.2) Albumin 3.0 g/dL (3.4-5.0) Albumin/Globulin Ratio 0.7 (1.0-1.7) Glucose (Fingerstick) 507 mg/dL (70-99) 224 mg/dL (70-99) 353 mg/dL (70-99) Test 05/27/17 16:56 05/27/17 20:52 05/28/17 07:33 05/28/17 09:51 Glucose (Fingerstick) 134 mg/dL (70-99) 295 mg/dL (70-99) 284 mg/dL (70-99) 244 mg/dL (70-99) Test 05/28/17 10:45 05/28/17 11:08 Prothrombin Time 11.7 SEC (11.7-14.0) Prothromb Time International Ratio 0.9 (0.8-1.1) Vancomycin Level Trough 11.5 mcg/mL (10.0-20.0) Vancomycin Last Dose Date 05/28/17 Vancomycin Last Dose Time 0133 Glucose (Fingerstick) 219 mg/dL (70-99) Laboratory Tests Test 05/27/17 16:56 05/27/17 20:52 05/28/17 07:33 05/28/17 09:51 Glucose (Fingerstick) 134 mg/dL (70-99) 295 mg/dL (70-99) 284 mg/dL (70-99) 244 mg/dL (70-99) Test 05/28/17 10:45 05/28/17 11:08 Prothrombin Time 11.7 SEC (11.7-14.0) Prothromb Time International Ratio 0.9 (0.8-1.1) Vancomycin Level Trough 11.5 mcg/mL (10.0-20.0) Vancomycin Last Dose Date 05/28/17 Vancomycin Last Dose Time 0133 Glucose (Fingerstick) 219 mg/dL (70-99) Assessment/Plan 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 In addition the patient has a small right common iliac artery aneurysm based on CT scan. Patient is to undergo angiography with interventional radiology today to determine reconstruction options. We were review these images once they are available and make recommendations for a definitive plan. Patient is status post right great toe amputation with orthopedic surgery today. His surgical dressing was not removed. We will continue to follow and make recommendations based on the findings of the testing performed today. The patient should have a right foot forefoot offloading shoe ordered with heel weightbearing. Problems: DYLAN BENNETT DO May 28, 2017 15:49
[2017-05-28] MEDS: VANCOMYCIN 1.5 GM in IV NORMAL SALINE 500ML BAG 500 ML IV SCH (17:25)
[2017-05-28] MEDS ORDERED: INSULIN DETEMIR 300 UNITS/3 ML INSULN.PEN. SQ SCH (21:00)
[2017-05-28] MEDS ORDERED: INSULIN ASPART 300 UNITS/3 ML INSULN.PEN SQ ONE (21:00)
[2017-05-29] MEDS: PIPERACILLIN/TAZOBACTAM 3.375 GM in IV NORMAL SALINE 50ML 50 ML IV SCH ×2 (00:08→06:11)
[2017-05-29] MEDS: oxyCODONE/APAP 10/325 1 TAB TABLET PO PRN ×4 (00:11→17:28)
[2017-05-29] MEDS: VANCOMYCIN 1.5 GM in IV NORMAL SALINE 500ML BAG 500 ML IV SCH (02:04)
[2017-05-29 03:00] VITALS: BP 142/74
[2017-05-29 07:15] VITALS: BP 149/86
--- NOTE | 2017-05-29 07:34 | PDOC ---
ORTHO PROGRESS NOTES Subjective Feels hungry. Pain tolerable, had angio yesterday Vitals Vital Signs Date Time Temp Pulse Resp B/P (MAP) Pulse Ox O2 Delivery O2 Flow Rate FiO2 05/29/17 03:00 98.1 106 20 142/74 (96) 98 Room Air 98.1 05/28/17 16:17 2.0 Labs Laboratory Tests Test 05/27/17 11:54 05/27/17 16:56 05/27/17 20:52 05/28/17 07:33 Glucose (Fingerstick) 353 mg/dL (70-99) 134 mg/dL (70-99) 295 mg/dL (70-99) 284 mg/dL (70-99) Test 05/28/17 09:51 05/28/17 10:45 05/28/17 11:08 05/28/17 16:39 Glucose (Fingerstick) 244 mg/dL (70-99) 219 mg/dL (70-99) 277 mg/dL (70-99) Prothrombin Time 11.7 SEC (11.7-14.0) Prothromb Time International Ratio 0.9 (0.8-1.1) Vancomycin Level Trough 11.5 mcg/mL (10.0-20.0) Vancomycin Last Dose Date 05/28/17 Vancomycin Last Dose Time 132 Test 05/28/17 20:28 Glucose (Fingerstick) 302 mg/dL (70-99) Laboratory Tests Test 05/28/17 07:33 05/28/17 09:51 05/28/17 10:45 05/28/17 11:08 Glucose (Fingerstick) 284 mg/dL (70-99) 244 mg/dL (70-99) 219 mg/dL (70-99) Prothrombin Time 11.7 SEC (11.7-14.0) Prothromb Time International Ratio 0.9 (0.8-1.1) Vancomycin Level Trough 11.5 mcg/mL (10.0-20.0) Vancomycin Last Dose Date 05/28/17 Vancomycin Last Dose Time 132 Test 05/28/17 16:39 05/28/17 20:28 Glucose (Fingerstick) 277 mg/dL (70-99) 302 mg/dL (70-99) Notes A and A in bed RLE: dressing intact, not much drainage toes warm Assessment and Plan OK to WB through heel cont abx no orgs on gram stain, will f/u on Cxs BRYAN CHEEMA II, MD May 29, 2017 07:34
--- NOTE | 2017-05-29 07:45 | RAD ---
05/28/2017 Pelvic angiography Bilateral lower extremity angiography Indication: Right lower extremity ischemia. Recent nonhealing wound of the toe, status post great toe amputation Discussion: The risks and benefits of the procedure including but not limited to bleeding, vascular injury, embolization, ischemia, and pain were discussed the patient. Informed consent was obtained. The patient was brought to the fluoroscopy suite placed in the supine position. A timeout procedure was performed. The left groin is prepped and draped using maximal sterile barrier technique. Ultrasound evaluation demonstrated an area of calcification in the mid left common femoral artery. Ultrasound fluoroscopic guidance was used, in addition a micropuncture technique, to achieve left common femoral access just above the area of left common femoral area narrowing. This was confirmed with angiography. Pelvic angiography was then performed and bilateral obliques. Catheter was advanced into the right external iliac artery and right lower extremity angiography was performed. Left lower extremity angiography was then performed through the sheath. Following the sheath was removed and manual pressure held to achieve hemostasis. Sterile dressing was applied. No immediate complications were identified. Fluoroscopy time: 5.7 minutes Posterior products 221 Gycm2 Findings: Visualized inferior abdominal aorta is patent. Right common and internal iliac arteries are patent. Proximal right external artery is patent. There is occlusion at the junction of the right external iliac artery and common femoral artery at the level of the superior hip joint. There is reconstitution of the distalmost common femoral artery just before the origin of the profunda artery. There is high-grade stenosis of the mid to distal right superficial femoral artery. The popliteal artery is patent. There is occlusion of the right anterior tibial artery. The posterior tibial and peroneal arteries demonstrate mild areas of narrowing superior to be otherwise patent. The dorsalis pedis arteries occluded. The left common iliac artery, internal iliac artery, and external iliac artery patent. There is 60% stenosis of the left common femoral artery which is densely calcified. There is 50% stenosis of the proximal left SFA. There is probable 25% stenosis of the distal left SFA. The popliteal artery is patent. Left anterior tibial artery is occluded. Blood supply to the left foot is via the posterior tibial artery appears to remain patent. Mild narrowings of the proximal peroneal artery are noted. The dorsalis pedis artery is occluded on the left. Impression: 1. Occlusion of the junction of the right external iliac artery and common femoral artery with reconstitution of the distalmost common femoral artery. Patient has a history of external iliac artery to common femoral bypass graft. The appearance suggests chronic occlusion. 2. High-grade stenosis of the mid to distal right SFA. 3. Occlusion of the right anterior tibial and dorsalis pedis arteries. 4. 60% stenosis of the left common femoral artery, densely calcified 5. 50% stenosis of the proximal left SFA. Probable 25% stenosis of the distalmost left SFA. 6. Occlusion of the left anterior tibial artery and dorsalis pedis artery
--- NOTE | 2017-05-29 08:33 | PDOC ---
GENERAL General: vss and afebrile. awake and alert and having second portions for breakfast. sugar high this am and he reports that he is taking 60 units long acting insulin at home and will change to same. very poor circulation right leg by arteriography and awaiting vascular opinion/plans on same. exam stable with exception of amputation. Problems: VITAL SIGNS Vital Signs: Vital Signs Date Time Temp Pulse Resp B/P (MAP) Pulse Ox O2 Delivery O2 Flow Rate FiO2 05/29/17 07:15 98.6 98 20 149/86 (107) 98 Room Air 98.6 05/28/17 16:17 2.0 I & O I & O Intake and Output 05/29/17 07:00 Intake Total 1520 ml Output Total 1250 ml Balance 270 ml Intake Oral 720 ml IV Total 800 ml Output Urine Total 1225 ml Estimated Blood Loss 25 ml ALLERGIES Allergies: Allergies Coded Allergies Type Severity Reaction Last Updated Verified sulfamethoxazole Allergy Intermediate Rash 07/12/15 Yes trimethoprim Allergy Intermediate Rash 07/12/15 Yes MEDS Medications: Current Medications Medications (Trade) Dose Ordered Sig/Tory Start Time Stop Time Status Last Admin Dose Admin Bupivacaine HCl (Sensorcaine Mpf 0.5%) 30 ml STK-MED ONCE 05/28/17 08:01 05/28/17 08:02 DC Dexamethasone Sodium Phosphate (Decadron) 20 mg STK-MED ONCE 05/28/17 09:02 05/28/17 09:03 DC Dextrose (Dextrose 50%-Water Syringe) 12.5 gm PRN Q15MIN PRN 05/26/17 19:30 Fentanyl Citrate (Fentanyl 2ml Vial) 50 mcg PRN Q5MIN PRN 05/28/17 10:00 05/29/17 09:59 Fentanyl Citrate (Fentanyl 5ml Vial) 250 mcg 1X ONCE 05/28/17 15:30 05/28/17 15:32 DC 05/28/17 15:30 50 MCG Heparin Sodium/ Sodium Chloride 1,000 unit 1X ONCE 05/28/17 15:30 05/28/17 15:32 DC 05/28/17 15:30 1,000 UNIT Hydromorphone HCl (Dilaudid) 0.5 mg PRN Q10MIN PRN 05/28/17 10:00 05/29/17 09:59 Info (Do NOT chart on this entry -- for MONITORING) 1 each PRN DAILY PRN 05/28/17 15:45 05/30/17 15:44 Insulin Aspart (NovoLOG VIAL) 6 unit 1X ONCE 05/28/17 10:00 05/28/17 10:03 DC 05/28/17 10:01 6 UNIT Insulin Aspart (NovoLOG) 3 units 1X ONCE 05/28/17 21:00 05/28/17 21:01 DC 05/28/17 20:55 3 UNITS Insulin Detemir (Levemir) 20 units QHS 05/28/17 21:00 05/28/17 20:55 20 UNITS Iodixanol (Visipaque 320) 100 ml 1X ONCE 05/28/17 15:30 05/28/17 15:32 DC 05/28/17 15:30 91 ML Iohexol (Omnipaque 300 Mg/ml) 100 ml 1X ONCE 05/28/17 15:30 05/28/17 15:32 DC 05/28/17 15:30 40 ML Lidocaine HCl 2 ml PRN 1X PRN 05/28/17 10:00 05/29/17 09:59 Lidocaine HCl (Lidocaine Pf 2% Vial) 5 ml STK-MED ONCE 05/28/17 07:56 05/28/17 07:57 DC Lidocaine/Sodium Bicarbonate (Buffered Lidocaine 1%) 20 ml 1X ONCE 05/28/17 15:30 05/28/17 15:32 DC 05/28/17 15:30 20 ML Midazolam HCl (Versed) 5 mg 1X ONCE 05/28/17 15:30 05/28/17 15:32 DC 05/28/17 15:30 1 MG Morphine Sulfate 1 mg PRN Q10MIN PRN 05/28/17 10:00 05/29/17 09:59 05/28/17 10:45 1 MG Non-Formulary Medication 30 unit DAILYAC 05/27/17 07:30 05/27/17 08:06 DC Ondansetron HCl (Zofran) 4 mg PRN Q6HRS PRN 05/28/17 10:00 05/29/17 09:59 Oxycodone/ Acetaminophen (Percocet 10/325) 2 tab PRN Q4HRS PRN 05/26/17 23:00 05/29/17 00:11 2 TAB Piperacillin Sod/ Tazobactam Sod 3.375 gm/Sodium Chloride 50 ml @ 100 mls/hr Q6HRS 05/26/17 20:00 05/29/17 06:11 100 MLS/HR Prochlorperazine Edisylate (Compazine) 5 mg PACU PRN PRN 05/28/17 10:00 05/29/17 09:59 Propofol 20 ml @ As Directed STK-MED ONCE 05/28/17 07:56 05/28/17 07:57 DC Ringer's Solution 1,000 ml @ 30 mls/hr Q24H 05/28/17 09:54 05/28/17 21:53 DC Sevoflurane (Ultane) 30 ml STK-MED ONCE 05/28/17 09:02 05/28/17 09:03 DC Vancomycin HCl (Vanco Per Pharmacy) 1 each PRN DAILY PRN 05/26/17 19:30 05/28/17 11:31 1 EACH Vancomycin HCl 1.25 gm/Sodium Chloride 250 ml @ 167 mls/hr Q8H 05/27/17 18:00 05/28/17 13:00 DC 05/28/17 10:46 167 MLS/HR Vancomycin HCl 1.5 gm/Sodium Chloride 500 ml @ 250 mls/hr Q8H 05/28/17 18:00 05/29/17 02:04 250 MLS/HR Vancomycin HCl 2 gm/Sodium Chloride 500 ml @ 250 mls/hr Q24H 05/26/17 19:45 05/27/17 12:24 DC 05/26/17 21:13 250 MLS/HR LAB Lab: Laboratory Tests Test 05/28/17 09:51 05/28/17 10:45 05/28/17 11:08 05/28/17 16:39 Glucose (Fingerstick) 244 mg/dL (70-99) 219 mg/dL (70-99) 277 mg/dL (70-99) Prothrombin Time 11.7 SEC (11.7-14.0) Prothromb Time International Ratio 0.9 (0.8-1.1) Vancomycin Level Trough 11.5 mcg/mL (10.0-20.0) Vancomycin Last Dose Date 05/28/17 Vancomycin Last Dose Time 0133 Test 05/28/17 20:28 05/29/17 07:08 Glucose (Fingerstick) 302 mg/dL (70-99) 376 mg/dL (70-99) PAT MOSHER MD May 29, 2017 08:33
[2017-05-29] MEDS: INSULIN ASPART 300 UNITS/3 ML INSULN.PEN SQ SCH ×6 (08:51→17:37)
--- NOTE | 2017-05-29 08:54 | PDOC ---
Infectious Disease Note Subjective Subjective feeling good ROS ROS GEN: Denies fevers, chills, sweats HEENT: Denies blurred vision, sore throat CV: Denies chest pain RESP: Denies shortness of air, cough GI: Denies n/v/d NEURO: Denies confusion, dizziness MSK: Denies weakness, joint pain/swelling Vital Sign Vital Signs Vital Signs Date Time Temp Pulse Resp B/P (MAP) Pulse Ox O2 Delivery O2 Flow Rate FiO2 05/29/17 07:15 98.6 98 20 149/86 (107) 98 Room Air 98.6 05/28/17 16:17 2.0 Physical Exam PHYSICAL EXAM GENERAL: NAD, Alert HEENT: PERRL, OC/OP NECK: Supple, no JVD, no LN LUNGS: Clear HEART: S1S2, no gallop, no murmur ABD: Soft, NT, no organomegaly, no rebound EXT: No edema, no cyanosis, toe amp site looks good, closed [employer]CRET[employer]: Alert, oriented x 3, no focal neurologic deficit SKIN: No rash IV: ok Labs Lab Laboratory Tests Test 05/28/17 09:51 05/28/17 10:45 05/28/17 11:08 05/28/17 16:39 Glucose (Fingerstick) 244 mg/dL (70-99) 219 mg/dL (70-99) 277 mg/dL (70-99) Prothrombin Time 11.7 SEC (11.7-14.0) Prothromb Time International Ratio 0.9 (0.8-1.1) Vancomycin Level Trough 11.5 mcg/mL (10.0-20.0) Vancomycin Last Dose Date 05/28/17 Vancomycin Last Dose Time 0133 Test 05/28/17 20:28 05/29/17 07:08 Glucose (Fingerstick) 302 mg/dL (70-99) 376 mg/dL (70-99) Objective Assessment Rt 1 st toe osteomyelitis, s/p amputation DM PAD Non compliance Plan Plan of Care d/c iv antibiotics po keflex d./w dr Clarenec BECERRA,GAURI Sauer MD May 29, 2017 08:54
[2017-05-29] MEDS: NON FORMULARY ITEM (Dextroamphetamine/Amphetamine (Adderall Xr 30 Mg Capsule) 1 CAP) PO SCH (09:00)
[2017-05-29] MEDS: CEPHALEXIN 250 MG CAPSULE. PO SCH ×2 (10:19→13:17)
[2017-05-29 11:15] VITALS: BP 149/81
[2017-05-29 15:03] VITALS: BP 151/87
--- NOTE | 2017-05-29 17:39 | PDOC ---
SUBJECTIVE Subjective Status post right first toe amputation OBJECTIVE Objective 51-year-old diabetic male developed ischemic ulceration in the medial aspect of his right first toe. He has had a previous right femoral artery reconstruction. Arteriographic evaluation shows an occluded right common femoral artery. He reconstitutes his superficial femoral artery and circumflex femoral artery on the right. The profunda femoris artery appears to be occluded at its origin but reconstitutes. He has a focal high-grade stenosis at the adductor canal. The above and below-knee popliteal artery are patent. He has 2 vessel runoff to the foot disease (peroneal and posterior tibial arteries are patent). History of amputation site is inspected. There is an area of pallor on the dorsum of his foot. Discussed this with the patient and with Dr. Lima. I recommended femoral artery reconstruction with poor operative superficial femoral artery angioplasty. We'll schedule this for early next week. Discussed this with the patient. Patient would like to go home prior to surgery. Her graft will contact the patient with regard to surgical scheduling tomorrow. Recommend continued antibiotic therapy Vital Signs Vital Signs Date Time Temp Pulse Resp B/P (MAP) Pulse Ox O2 Delivery O2 Flow Rate FiO2 05/29/17 15:03 97.9 100 20 151/87 (108) 97 Room Air 97.9 05/29/17 11:15 98.5 109 18 149/81 (103) 97 Room Air 98.5 05/29/17 07:15 98.6 98 20 149/86 (107) 98 Room Air 98.6 05/29/17 03:00 98.1 106 20 142/74 (96) 98 Room Air 98.1 05/29/17 01:16 18 98 Room Air 05/29/17 00:11 20 98 Room Air 05/28/17 23:00 97.9 114 20 149/79 (102) 98 Room Air 97.9 05/28/17 20:00 Room Air 05/28/17 20:00 97.7 114 18 146/67 (93) 94 Room Air 97.7 05/28/17 19:00 98.1 114 139/65 (89) Room Air 98.1 05/28/17 17:45 111 18 150/74 (99) Room Air I & O Intake and Output 05/29/17 07:00 Intake Total 1520 ml Output Total 1250 ml Balance 270 ml Intake Oral 720 ml IV Total 800 ml Output Urine Total 1225 ml Estimated Blood Loss 25 ml COMMENT Lab Laboratory Tests Test 05/28/17 20:28 05/29/17 07:08 05/29/17 11:42 05/29/17 17:03 Glucose (Fingerstick) 302 mg/dL (70-99) 376 mg/dL (70-99) 461 mg/dL (70-99) 347 mg/dL (70-99) SAM ROJAS MD May 29, 2017 17:39
[2017-05-29] MEDS ORDERED: CEPH500C PO (18:24)
[2017-05-29] MEDS ORDERED: INSULIN DETEMIR 300 UNITS/3 ML INSULN.PEN. SQ SCH (21:00)
--- NOTE | 2017-05-30 13:44 | PATHOLOGY ---
PATHOLOGY REPORT * * * * * * * * FINAL DIAGNOSIS: Right great toe amputation: - Focal ulceration of medial aspect of toe with acute cellulitis and acute osteomyelitis. (JPM:tanisha;05/30/2017) REPORT ELECTRONICALLY SIGNED BY: Rashi Crowe M.D. DATE/TIME: 05/30/2017 13:44 * * * * * * * * GROSS PATHOLOGY: The specimen is received in formalin labeled "Zhang Donohue, right great toe". Received is an amputated digit measuring 3.5 x 3.4 x 3.0 cm in greatest dimensions. The bone margin is smooth and concave in appearance, consistent with disarticulation. The bone and soft tissue margins are inked black. The nail is present displaying a cope-goodson and thickened appearance. On the medial aspect, there is a poorly circumscribed, focally ulcerated to necrotic and cope-goodson lesion present measuring 2.0 x 1.5 cm. The surrounding skin is cope-goodson and slightly thickened in appearance. The lesion is 0.5 cm from the closest inked margin. A full-thickness longitudinal cross-section through the ulcer is submitted in cassettes A1 and A2, submitted from proximal to distal aspects, following decalcification. (CAA; 05/29/2017) INITIAL CPT CODE(S): A; 80321, 90995 Professional services performed [place] [facility] [place] [address] Technical services performed by [facility] at [address] [place] [address] [address] [address]. SPECIMEN(S) RECEIVED: A.Right great toe CLINICAL HISTORY: None provided PATIENT: ZHANG DONOHUE /AGE: 8 1965 (Age: 51) PATIENT #: [id number] ALT CASE #: SPECIMEN COLLECTION DATE: 05/28/2017 SPECIMEN RECEIVED DATE: 05/28/2017 [facility] - [facility] [place] [address] - PHONE: [phone] * * * END OF REPORT * * *
[2017-06-02] MEDS ORDERED: ATOR40TA PO (14:08)
[2017-06-02] MEDS ORDERED: LISI40TA PO (14:08)
--- NOTE | 2017-06-29 01:51 | DS ---
DATE OF DISCHARGE: 05/29/2017 PRIMARY DIAGNOSIS: Osteomyelitis of the distal right great toe. ADDITIONAL DIAGNOSES: Diabetes mellitus, peripheral arterial disease, chronic lumbar radiculopathy, blindness of the right eye. CHIEF COMPLAINT AND HISTORY OF PRESENT ILLNESS: This 51-year-old white male was admitted to the hospital with osteomyelitis of the distal tuft of the right great toe as well as failed outpatient antibiotic treatment. SUMMARY OF STAY: ID and Ortho were consulted as well as Vascular Surgery during the stay, the patient had an amputation of the last phalanx of his right great toe. An arteriogram of the lower extremities showing significant disease in the right with surgery being scheduled by Vascular Surgery for early next week to revascularize the leg for the second time. Infectious Disease followed along with antibiotics. The patient did well postoperatively and was felt he could be dismissed on the day of discharge safely with outpatient followup. It was felt by ID okay to go home on p.o. Keflex. DISPOSITION: The patient is discharged home. DIET: ADA diet. ACTIVITY: As tolerated. PLAN: Surgery ____ next week with vascular surgical and with time. He is to resume his regular home medications. Medicines are listed on the med rec and have been addressed. PAT MOSHER MD DR: MEHRAN/denise JOB#: [id number] / [id number]
--- NOTE | 2017-06-30 06:13 | HP ---
ADMIT DATE: 05/26/2017 CHIEF COMPLAINT AND HISTORY OF PRESENT ILLNESS: This 51-year-old white male is well known to me from followup in the office. The patient was seen on the day of admission with right great toe osteomyelitis and foot infection, unresponsive to outpatient therapy, for IV antibiotics and Orthopedic consultation. PAST MEDICAL HISTORY: Extensive and includes longstanding diabetes, hypertension, and chronic lumbar radiculopathy. 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 He has ____ and history of peripheral arterial disease with prior bypass. MEDICATIONS: Brought with the patient are listed on the computer and have been addressed. ALLERGIES: HE IS ALLERGIC TO BACTRIM. SOCIAL HISTORY: He is a smoker, nondrinker, and does not use drugs. Lives at home with his parents. 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 FAMILY HISTORY: Noncontributory. REVIEW OF SYSTEMS: Remarkable for some pain in the toe, but not horrible. PHYSICAL EXAMINATION: GENERAL: He is a well-developed and well-nourished white male who appears in no acute distress at rest. VITAL SIGNS: Stable. He is afebrile. Sugars were elevated. HEAD, EYES, EARS, NOSE, AND THROAT: Unremarkable. NECK: Supple without adenopathy or thyromegaly. CHEST: Clear to auscultation and percussion. HEART: Regular rate and rhythm without S3, S4, or murmur. ABDOMEN: Soft, nontender, without hepatosplenomegaly or masses. EXTREMITIES: Reveal no significant cyanosis, clubbing, or edema. He has [id number] pulses in the right foot. NEUROLOGIC: He is intact. IMPRESSION: Osteomyelitis with diabetic foot infection, right great toe, failed outpatient treatment. PLAN: The patient has been admitted. Again, Orthopedics and ID will be consulted and the patient will be monitored, managed, and treated appropriately. PAT MOSHER MD DR: MEHRAN/denise JOB#: [id number] / [id number]
== END 2017-05-29 19:29 | disposition home or self-care (01) | DRG 617 ==
LOC: 4 NORTH 17:35
PROVIDERS: ADMIT Family Medicine; ATTEND Family Medicine
PROC: 0QBQ0ZX Excision of Right Toe Phalanx, Open Approach, Diagnostic (ICD-10-PCS; 2017-05-28)
PROC: B41G1ZZ Fluoroscopy of Left Lower Extremity Arteries using Low Osmolar Contrast (ICD-10-PCS; 2017-05-28)
PROC: B41C1ZZ Fluoroscopy of Pelvic Arteries using Low Osmolar Contrast (ICD-10-PCS; 2017-05-28)
PROC: B41F1ZZ Fluoroscopy of Right Lower Extremity Arteries using Low Osmolar Contrast (ICD-10-PCS; 2017-05-28)
PROC: 0Y6P0Z3 Detachment at Right 1st Toe, Low, Open Approach (ICD-10-PCS; principal; 2017-05-28 11:15)
DX: E11.69 Type 2 diabetes mellitus with other specified complication (principal); L03.115 Cellulitis of right lower limb; I70.261 Atherosclerosis of native arteries of extremities with gangrene, right leg; M86.671 Other chronic osteomyelitis, right ankle and foot; E11.42 Type 2 diabetes mellitus with diabetic polyneuropathy; I72.3 Aneurysm of iliac artery; I10 Essential (primary) hypertension; L89.899 Pressure ulcer of other site, unspecified stage; F17.200 Nicotine dependence, unspecified, uncomplicated; Z82.49 Family history of ischemic heart disease and other diseases of the circulatory system; Z88.2 Allergy status to sulfonamides; Z88.8 Allergy status to other drugs, medicaments and biological substances; Z91.19 Patient's noncompliance with other medical treatment and regimen; Z79.899 Other long term (current) drug therapy; Z79.82 Long term (current) use of aspirin; Z79.1 Long term (current) use of non-steroidal anti-inflammatories (NSAID); Z79.2 Long term (current) use of antibiotics
CPT/HCPCS: 36247; 36415; 73620; 75625; 75716; 76937; 80053; 80202; 82962; 85027; 85610; 85651; 87071; 87075; 87186; 87205; 88305; 88311; 93923; 99152; 99153; C1713; C1769; C1892; C1894; J1100; J1644; J1815; J2001; J2250; J2270; J2405; J2543; J2704; J3010; J3370; J3490; J7040; J7050; J7120; Q9967; J7030

== ENCOUNTER 2017-06-23 06:33 | Day surgery (SDC) | payer BC ==
[~2017-06-23] VITALS: Ht 180.3 cm; Wt 89.4 kg
[~2017-06-23 06:33] MED LIST changes: +CEPH500C PO; +DEXT30CA6 PO; +OXYC1TAB9 PO
[2017-06-23] MEDS ORDERED: LIDOCAINE 1% PF 30 ML VIAL. ONE (06:36)
[2017-06-23] MEDS ORDERED: BUPIVACAINE MPF 0.5% 30 ML VIAL. ONE (06:36)
[2017-06-23] MEDS ORDERED: LIDOCAINE 1% 1 ML SYRINGE. ID PRN (07:00)
[2017-06-23] MEDS ORDERED: MORPHINE SULFATE 2 MG/ML DISP.SYRIN. IV PRN (07:00)
[2017-06-23] MEDS ORDERED: IV RINGERS,LACTATED 1000ML 1,000 ML IV SCH (07:00)
[2017-06-23] MEDS ORDERED: HYDROmorphone 2 MG/ML VIAL IV PRN (07:00)
[2017-06-23] MEDS ORDERED: fentaNYL PF VIAL 100 MCG/2 ML VIAL IV PRN ×2 (07:00)
[2017-06-23] MEDS ORDERED: PROCHLORPERAZINE 10 MG/2 ML VIAL. IV PRN (07:00)
[2017-06-23] MEDS ORDERED: ONDANSETRON PF 4 MG/2 ML VIAL. IV PRN (07:00)
[2017-06-23] MEDS ORDERED: LIDOCAINE 2% PF Vial for OR 5 ML VIAL. ONE (07:11)
[2017-06-23] MEDS ORDERED: fentaNYL PF VIAL 100 MCG/2 ML VIAL ONE (07:11)
[2017-06-23] MEDS ORDERED: PROPOFOL 20 ML IV ONE (07:11)
[2017-06-23] MEDS ORDERED: DEXAMETHASONE SOD PHOS 20 MG/5 ML VIAL. ONE (08:01)
[2017-06-23] MEDS ORDERED: SEVOFLURANE 31 TO 60 MINUTES. IH ONE (08:01)
[2017-06-23] MEDS ORDERED: ONDANSETRON PF 4 MG/2 ML VIAL. ONE (08:01)
--- NOTE | 2017-06-23 08:35 | DISCH ---
DISCHARGE INSTRUCTIONS Condition on Discharge Condition on Discharge: Stable Activity After Discharge Activity Instructions for Disc: Other, see below Other activity instructions: ok to weight bear through heel Bathing Instructions: Shower-keep dressing dry Weight Bearing Status after Di: Other, see below Diet after Discharge Diet after Discharge: Regular Wound Incision Care Wound/Incision Care: Ice to area for comfort, Keep wound/cast CDI, Keep wound elevated, Change dressing Contacting the DR. after DC Call your doctor for: Concerns you may have Follow-Up Follow up with: Claudia in 2wks BRYAN CHEEMA II, MD Jun 23, 2017 08:35
--- NOTE | 2017-06-23 08:47 | PDOC4 ---
Operative Note Operative Note Date of surgery: 06/23/2017 Surgeon: Truong Cheema MD Preoperative diagnosis: Right great toe wound, chronic osteomyelitis Postoperative diagnosis: Same Procedure performed: Revision great toe amputation through MTP joint Anesthesia: Gen. plus local Findings: Patient had friable and necrotic appearing bone at his proximal phalanx of his right great toe. Blood loss 5 mL's Complications: None Specimens: Great toe was sent to pathology. Reason for procedure: Evan is a 51-year-old who had performed a partial great toe amputation on for a chronic wound and osteomyelitis several weeks ago. He presented back to my clinic for follow-up and had necrosis of the distal aspect of the majority of the amputation site and had some follow-up order an drainage present as well. We had a discussion of the risks, benefits, and alternatives to proceeding with the above surgery and he elected to proceed. Next Description of procedure: Patient was greeted in the preoperative area by myself for the correct extremity was marked and verified. He was taken back to the operative suite and his antibiotics were started and row. Once in the OR he was transferred gently supine to the OR table and had successful induction of a general anesthetic. All pressure points are padded and he was secured to the bed. A nonsterile tourniquet was placed on his right upper thigh but we did not use it for this case. Proceeded to prep and drape with Betadine in her usual sterile fashion and then conducted our standard preoperative timeout. I used a skin marker to draw a line for my planned fishmouth type incision just distal to his MTP joint and then incised skin down to bone with a scalpel. I then used a combination of a Kimball elevator and a scalpel to work around the MTP joint to deliver the proximal phalanx and attached skin from the operative field. We sent this for specimen. After this, I inspected my soft tissues that I had available for repair and trim some of these back at the plantar aspect as there was some unhealthy appearing tissue. After trimming all the unhealthy-appearing tissue back, I still had plenty of skin and was able to accomplish a tension- free closure. I irrigated out the wound bed with approximate 1000 mL of sterile normal saline and then cauterized a couple bleeders. I then reapproximated the skin with 2-0 nylon in a mattress fashion and then infiltrated the area with a local anesthetic mixture. We then cleansed and dried the foot and leg I placed Xeroform sterile gauze, sterile cast padding and an Sharan wrap. Prior to comp shooting wound closure, all counts report is correct 2. No complications. At the conclusion of the surgery, patient was awakened from anesthesia and transferred gently supine to the recovery room cart and taken to the PACU in a stable and extubated condition. Postoperative plan is to discharge patient home. We will see him back in my outpatient clinic in 2 weeks, sooner should a problem arise. TRUONG CHEEMA II, MD Jun 23, 2017 08:47
[2017-06-23] MEDS ORDERED: oxyCODONE/APAP 10/325 1 TAB TABLET PO PRN (09:30)
[2017-06-23 10:00] VITALS: BP 145/77
--- NOTE | 2017-06-25 16:59 | PATHOLOGY ---
PATHOLOGY REPORT * * * * * * * * FINAL DIAGNOSIS: Segment of bone with attached soft tissue and separate segment of skin and subcutaneous tissue, right great toe revision: - Ulceration and gangrenous necrosis of skin and subcutaneous tissue with acute cellulitis and focal acute osteomyelitis. (JPM:; 06/25/2017) REPORT ELECTRONICALLY SIGNED BY: Rashi Crowe M.D. DATE/TIME: 06/25/2017 16:58 * * * * * * * * GROSS PATHOLOGY: The specimen is received in formalin labeled "Ino Augustin, R great toe". Received is a segment of bone displaying one smooth convex margin and one smooth concave margin, both consistent with disarticulation, measuring 4.1 x 2.6 x 2.5 cm in greatest dimensions and separately submitted irregular segment of focally ulcerated to shaggy skin with underlying soft tissue measuring 4.2 x 3.1 x 2.5 cm in greatest dimensions. The smooth concave margin of the bone is inked black. The specimen is submitted representatively as follows: A1-A2 full-thickness longitudinal cross-section of bone, following decalcification A3 tax compliance representative sections of skin with underlying soft tissue. (CAA; 06/24/2017) INITIAL CPT CODE(S): A; 62077, 27035 Professional services performed by [facility] [address] Technical services performed by [facility] at [address] [place] [address] [address] [address]. SPECIMEN(S) RECEIVED: A.Right great toe tissue CLINICAL HISTORY: Osteomyelitis PATIENT: INO AUGUSTIN /AGE: 8 1965 (Age: 51) PATIENT #: [id number] ALT CASE #: SPECIMEN COLLECTION DATE: 06/23/2017 SPECIMEN RECEIVED DATE: 06/23/2017 [facility] - [address] [place] [address] - PHONE: [phone] * * * END OF REPORT * * *
== END 2017-06-23 10:15 | disposition home or self-care (01) ==
LOC: SURG 06:33
PROVIDERS: ATTEND Orthopaedic Surgery Sports Medicine
DX: M86.671 Other chronic osteomyelitis, right ankle and foot (principal); E78.00 Pure hypercholesterolemia, unspecified; I10 Essential (primary) hypertension; E11.9 Type 2 diabetes mellitus without complications; Z86.69 Personal history of other diseases of the nervous system and sense organs; Z86.39 Personal history of other endocrine, nutritional and metabolic disease; Z87.39 Personal history of other diseases of the musculoskeletal system and connective tissue; Z88.1 Allergy status to other antibiotic agents; Z88.2 Allergy status to sulfonamides
CPT/HCPCS: 28820; 82962; J0690; J1100; J2001; J2405; J2704; J3010; J3490

== ENCOUNTER 2017-06-27 10:36 | Inpatient (IN) | payer BC ==
[~2017-06-27] VITALS: Ht 177.8 cm; Wt 87.6 kg
[2017-06-27 14:05] VITALS: BP 155/93
[2017-06-27 15:00] VITALS: BP 110/65
[2017-06-27] MEDS ORDERED: MORPHINE SULFATE 2 MG/ML DISP.SYRIN. IV PRN (16:30)
[2017-06-27] MEDS ORDERED: ONDANSETRON PF 4 MG/2 ML VIAL. IV PRN (16:30)
[2017-06-27] MEDS ORDERED: 0.9 % SODIUM CHLORIDE 10 ML DISP.SYRIN. IV PRN (16:30)
[2017-06-27] MEDS ORDERED: DEXTROSE 50% 25 GM / 50ML DISP.SYRIN. IV PRN (16:45)
[2017-06-27] MEDS ORDERED: VANCOMYCIN 2 GM in IV NORMAL SALINE 500ML BAG 500 ML IV ONE (17:00)
[2017-06-27] MEDS: INSULIN ASPART 300 UNITS/3 ML INSULN.PEN SQ SCH (17:00)
--- NOTE | 2017-06-27 17:39 | PDOC ---
GENERAL General: see dictated H&P. clinically foot infection after surgery Friday of this week. cultures ordered and antibiotics and consults. Problems: VITAL SIGNS Vital Signs: Vital Signs Date Time Temp Pulse Resp B/P (MAP) Pulse Ox O2 Delivery O2 Flow Rate FiO2 06/27/17 15:00 97.5 112 20 110/65 (80) 97 Room Air 97.5 ALLERGIES Allergies: Allergies Coded Allergies Type Severity Reaction Last Updated Verified sulfamethoxazole Allergy Intermediate Rash 06/19/17 Yes trimethoprim Allergy Intermediate Rash 06/19/17 Yes MEDS Medications: Current Medications Medications (Trade) Dose Ordered Sig/Tory Start Time Stop Time Status Last Admin Dose Admin Dextrose (Dextrose 50%-Water Syringe) 12.5 gm PRN Q15MIN PRN 06/27/17 16:45 Insulin Aspart (NovoLOG) 0-7 UNITS TIDWMEALS 06/27/17 17:00 Insulin Detemir (Levemir) 30 units QHS 06/27/17 21:00 Morphine Sulfate 4 mg PRN Q2HR PRN 06/27/17 16:30 Ondansetron HCl (Zofran) 4 mg PRN Q6HRS PRN 06/27/17 16:30 Oxycodone/ Acetaminophen (Percocet 10/325) 2 tab PRN Q4HRS PRN 06/27/17 16:30 Piperacillin Sod/ Tazobactam Sod 3.375 gm/Sodium Chloride 50 ml @ 100 mls/hr Q6HRS 06/27/17 18:00 Sodium Chloride (Normal Saline Flush) 3 ml PRN DAILY PRN 06/27/17 16:30 Vancomycin HCl (Vanco Per Pharmacy) 1 each PRN DAILY PRN 06/27/17 16:30 Vancomycin HCl 2 gm/Sodium Chloride 500 ml @ 250 mls/hr 1X ONCE 06/27/17 17:00 06/27/17 18:59 LAB Lab: Laboratory Tests Test 06/27/17 16:12 Glucose (Fingerstick) 98 mg/dL (70-99) PAT MOSHER MD Jun 27, 2017 17:38
[2017-06-27] MEDS: PIPERACILLIN/TAZOBACTAM 3.375 GM in IV NORMAL SALINE 50ML 50 ML IV SCH (18:00)
[2017-06-27] MEDS: oxyCODONE/APAP 10/325 1 TAB TABLET PO PRN ×2 (18:12→22:13)
[2017-06-27] MEDS: MORPHINE SULFATE 4 MG/ML DISP.SYRIN. IV PRN ×3 (18:16→22:13)
[2017-06-27 19:00] VITALS: BP 97/73
[2017-06-27] MEDS: VANCOMYCIN PER PHARMACY MC PRN (19:20)
[2017-06-27] MEDS ORDERED: INSULIN ASPART 300 UNITS/3 ML INSULN.PEN SQ ONE (22:00)
[2017-06-27] MEDS: INSULIN DETEMIR 300 UNITS/3 ML INSULN.PEN. SQ SCH (22:06)
[2017-06-27 23:00] VITALS: BP 154/86
[2017-06-28] MEDS: MORPHINE SULFATE 4 MG/ML DISP.SYRIN. IV PRN ×4 (01:36→12:37)
[2017-06-28] MEDS: VANCOMYCIN 1.25 GM in IV NORMAL SALINE 250ML 250 ML IV SCH ×3 (01:36→18:29)
[2017-06-28 03:32] VITALS: BP 161/83
[2017-06-28] MEDS: oxyCODONE/APAP 10/325 1 TAB TABLET PO PRN ×4 (04:30→22:15)
[2017-06-28] MEDS: PIPERACILLIN/TAZOBACTAM 3.375 GM in IV NORMAL SALINE 50ML 50 ML IV SCH ×5 (06:19→17:37)
[2017-06-28 07:00] VITALS: BP 137/78
[2017-06-28] MEDS: INSULIN ASPART 300 UNITS/3 ML INSULN.PEN SQ SCH ×4 (08:27→17:45)
--- NOTE | 2017-06-28 09:14 | PDOC2 ---
CONSULT Date of Consult Date of Consult DATE: 06/28/17 TIME: 09:10 Reason for Consult Reason for Consult: Pain after great toe amputation Referring Physician Referring Physician: Clarence Identification/Chief Complaint Chief Complaint Right great toe amputation pain Problems: Source Source: Patient History of Present Illness Reason for Visit: Evan is a 51-year-old diabetic who underwent revision great toe amputation with myself as well as irrigation and debridement a couple days ago. He presented to his primary care provider with concerns over the smell and the amount of pain he was in. He tells me he had good pain relief after surgery during the anesthetic phase of the injection had given him an otherwise he has been in a lot of pain. His pain has not necessarily been steadily progressive. He has not change dressing at home. Overall he has not felt sick. Pain is mainly what prompted his visit. Past Medical History Cardiovascular: HTN, Other Pulmonary: No pertinent hx CENTRAL NERVOUS SYSTEM: Periperal neuropathy Endocrine: Diabetes Family History Family History: Hypertension Social History ALCOHOL: occassional Current Medications Current Medications Current Medications Sodium Chloride (Normal Saline Flush) 3 ml PRN DAILY PRN IV AFTER MEDS AND BLOOD DRAWS; Start 06/27/17 at 16:30 Ondansetron HCl (Zofran) 4 mg PRN Q6HRS PRN IV NAUSEA/VOMITING; Start 06/27/17 at 16:30 Oxycodone/ Acetaminophen (Percocet 10/325) 2 tab PRN Q4HRS PRN PO PAIN Last administered on 06/28/17 04:30; Start 06/27/17 at 16:30 Morphine Sulfate 2 mg PRN Q2HR PRN IV PAIN; Start 06/27/17 at 16:30 Morphine Sulfate 4 mg PRN Q2HR PRN IV PAIN Last administered on 06/28/17 04:30 ; Start 06/27/17 at 16:30 Vancomycin HCl (Vanco Per Pharmacy) 1 each PRN DAILY PRN MC SEE COMMENTS Last administered on 06/27/17 19:20; Start 06/27/17 at 16:30 Piperacillin Sod/ Tazobactam Sod 3.375 gm/Sodium Chloride 50 ml @ 100 mls/hr Q6HRS IV Last administered on 06/28/17 06:19; Start 06/27/17 at 18:00 Insulin Detemir (Levemir) 30 units QHS SQ Last administered on 06/27/17 22:06; Start 06/27/17 at 21:00 Insulin Aspart (NovoLOG) 0-7 UNITS TIDWMEALS SQ Last administered on 06/28/17 08:27; Start 06/27/17 at 17:00 Dextrose (Dextrose 50%-Water Syringe) 12.5 gm PRN Q15MIN PRN IV SEE COMMENTS; Start 06/27/17 at 16:45 Vancomycin HCl 2 gm/Sodium Chloride 500 ml @ 250 mls/hr 1X ONCE IV Last administered on 06/27/17 18:25; Start 06/27/17 at 17:00; Stop 06/27/17 at 18:59; Status DC Vancomycin HCl 1.25 gm/Sodium Chloride 250 ml @ 167 mls/hr Q8H IV Last administered on 06/28/17 01:36; Start 06/28/17 at 02:00 Vancomycin HCl 1 each 1X ONCE MC ; Start 06/28/17 at 17:30; Stop 06/28/17 at 17: 31 Insulin Aspart (NovoLOG) 10 units 1X ONCE SQ Last administered on 06/27/17 22: 08; Start 06/27/17 at 22:00; Stop 06/27/17 at 22:01; Status DC Active Scripts Active Reported Oxycodone-Acetaminophen 10-325 (Oxycodone Hcl/Acetaminophen) 1 Each Tablet 2 Tab PO PRN Q4HRS PRN Adderall Xr 30 Mg Capsule (Dextroamphetamine/Amphetamine) 30 Mg Cap.er.24h 1 Cap PO DAILY Humalog (Insulin Lispro) 100 Unit/1 Ml Cartridge 30 Unit SQ DAILYAC Lantus (Insulin Glargine,Hum.rec.anlog) 100 Unit/1 Ml Vial 60 Unit SQ HS Percocet 10-325 Mg Tablet (Oxycodone/Acetaminophen) 1 Each Tablet 1 Tab PO Q4HRS PRN Allergies Allergies: Coded Allergies: sulfamethoxazole (Verified Allergy, Intermediate, Rash, 06/19/17) trimethoprim (Verified Allergy, Intermediate, Rash, 06/19/17) ROS General: No: Chills, Night Sweats, Fatigue, Malaise, Appetite, Other PSYCHOLOGICAL ROS: No: Anxiety, Behavioral Disorder, Concentration difficultie , Decreased libido, Depression, Disorientation, Hallucinations, Hostility, Irritablity, Memory difficulties, Mood Swings, Obsessive thoughts, Physical abuse, Sexual abuse, Sleep disturbances, Suicidal ideation, Other Eyes: No Blurry vision, No Decreased vision, No Double vision, No Dry eyes, No Excessive tearing, No Eye Pain, No Itchy Eyes, No Loss of vision, No Photophobia , No Scotomata, No Uses contacts, No Uses glasses, No Other HEENT: No: Heacaches, Visual Changes, Hearing change, Nasal congestion, Nasal discharge, Oral lesions, Sinus pain, Sore Throat, Epistaxis, Sneezing, Snoring, Tinnitus, Vertigo, Vocal changes, Other ALLERGY AND IMMUNOLOGY: No: Hives, Insect Bite Sensitivity, Itchy/Watery Eyes, Nasal Congestion, Post Nasal Drip, Seasonal Allergies, Other Hematological and Lymphatic: No: Bleeding Problems, Blood Clots, Blood Transfusions, Brusing, Night Sweats, Pallor, Swollen Lymph Nodes, Other ENDOCRINE: No: Breast Changes, Galactorrhea, Hair Pattern Changes, Hot Flashes , Malaise/lethargy, Mood Swings, Palpitations, Polydipsia/polyuria, Skin Changes , Temperature Intolerance, Unexpected Weight Changes, Other Respiratory: No: Cough, Hemoptysis, Orthopnea, Pleuritic Pain, Shortness of breath, SOB with excertion, Sputum Changes, Stridor, Tachypnea, Wheezing, Other Cardiovascular: No Chest Pain, No Palpitations, No Orthopnea, No Paroxysmal Noc. Dyspnea, No Edema, No Lt Headedness, No Other Gastrointestinal: No Nausea, No Vomiting, No Abdominal Pain, No Diarrhea, No Constipation, No Melena, No Hematochezia, No Other Musculoskeletal: Yes Joint Pain Neurological: Yes Numbness/Tingling Physical Exam General: Alert, Oriented X3 HEENT: Atraumatic, PERRLA Lungs: Clear to auscultation, Other (symmetric chest rise) Heart: Regular rate Abdomen: Normal bowel sounds, Soft Extremities: No clubbing, No edema Skin: Other Neuro: Normal speech, Strength at 5/5 X4 ext, Sensation intact (with the exception of the neuropathy) Psych/Mental Status: Mental status NL, Mood NL MUSCULOSKELETAL: Other (examination of his right great toe wound bed reveals the skin flaps are healthy and pink in appearance with the exception of some superficial epithelial sloughing at the medial border. There is a large amount of dried blood around the operative site. There is no fluctuance or purulent drainage.) Vitals VITALS Vital Signs Date Time Temp Pulse Resp B/P (MAP) Pulse Ox O2 Delivery O2 Flow Rate FiO2 06/28/17 07:00 97.4 102 22 137/78 (97) 94 Room Air 97.4 Labs Labs Laboratory Tests Test 06/27/17 16:12 06/27/17 20:34 06/28/17 07:47 Glucose (Fingerstick) 98 mg/dL (70-99) 320 mg/dL (70-99) 324 mg/dL (70-99) Laboratory Tests Test 06/27/17 16:12 06/27/17 20:34 06/28/17 07:47 Glucose (Fingerstick) 98 mg/dL (70-99) 320 mg/dL (70-99) 324 mg/dL (70-99) Assessment/Plan Assessment/Plan Pain after great toe amputation. Overall I am encouraged by the appearance of this today. I did discuss with the patient and his nurse that we will get this cleaned up a little bit and monitor the skin edges. Right now, I do not feel there is any need for further operative intervention. BRYAN CHEEMA II, MD Jun 28, 2017 09:14
[2017-06-28] MEDS: VANCOMYCIN PER PHARMACY MC PRN ×2 (10:59→19:57)
[2017-06-28 11:00] VITALS: BP 135/77
--- NOTE | 2017-06-28 11:14 | PDOC ---
GENERAL General: vss and afebrile. awake and alert and foot looks about same but smell is gone. ortho notes appreciated and discussed with them. sugars labile. has package of corn nuts at bedside and nursing notes him eating around the clock. await ID opinion and cultures. otherwise same. Problems: VITAL SIGNS Vital Signs: Vital Signs Date Time Temp Pulse Resp B/P (MAP) Pulse Ox O2 Delivery O2 Flow Rate FiO2 06/28/17 10:38 94 Room Air 06/28/17 07:00 97.4 102 22 137/78 (97) 97.4 I & O I & O Intake and Output 06/28/17 06:59 Intake Total 1760 ml Output Total 1000 ml Balance 760 ml Intake Oral 1760 ml Output Urine Total 1000 ml ALLERGIES Allergies: Allergies Coded Allergies Type Severity Reaction Last Updated Verified sulfamethoxazole Allergy Intermediate Rash 06/19/17 Yes trimethoprim Allergy Intermediate Rash 06/19/17 Yes MEDS Medications: Current Medications Medications (Trade) Dose Ordered Sig/Tory Start Time Stop Time Status Last Admin Dose Admin Dextrose (Dextrose 50%-Water Syringe) 12.5 gm PRN Q15MIN PRN 06/27/17 16:45 Insulin Aspart (NovoLOG) 10 units 1X ONCE 06/27/17 22:00 06/27/17 22:01 DC 06/27/17 22:08 10 UNITS Insulin Detemir (Levemir) 30 units QHS 06/27/17 21:00 06/27/17 22:06 15 UNITS Morphine Sulfate 4 mg PRN Q2HR PRN 06/27/17 16:30 06/28/17 09:27 4 MG Ondansetron HCl (Zofran) 4 mg PRN Q6HRS PRN 06/27/17 16:30 Oxycodone/ Acetaminophen (Percocet 10/325) 2 tab PRN Q4HRS PRN 06/27/17 16:30 06/28/17 09:27 2 TAB Piperacillin Sod/ Tazobactam Sod 3.375 gm/Sodium Chloride 50 ml @ 100 mls/hr Q6HRS 06/27/17 18:00 06/28/17 06:19 100 MLS/HR Sodium Chloride (Normal Saline Flush) 3 ml PRN DAILY PRN 06/27/17 16:30 Vancomycin HCl 1 each 1X ONCE 06/28/17 17:30 06/28/17 17:31 Vancomycin HCl (Vanco Per Pharmacy) 1 each PRN DAILY PRN 06/27/17 16:30 06/28/17 10:59 1 EACH Vancomycin HCl 1.25 gm/Sodium Chloride 250 ml @ 167 mls/hr Q8H 06/28/17 02:00 06/28/17 09:28 167 MLS/HR Vancomycin HCl 2 gm/Sodium Chloride 500 ml @ 250 mls/hr 1X ONCE 06/27/17 17:00 06/27/17 18:59 DC 06/27/17 18:25 250 MLS/HR LAB Lab: Laboratory Tests Test 06/27/17 16:12 06/27/17 20:34 06/28/17 07:47 Glucose (Fingerstick) 98 mg/dL (70-99) 320 mg/dL (70-99) 324 mg/dL (70-99) PAT MOSHER MD Jun 28, 2017 11:14
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
[2017-06-28 12:34] LABS: BASO # 0.1 x10^3/uL (0.0-0.2); BASO % 1 % (0-3); EOS % 2 % (0-3); HEMATOCRIT 41.9 % (39.0-53.0); HEMOGLOBIN 13.6 g/dL (13.0-17.5); LYMPH # 1.4 x10^3/uL (1.0-4.8); LYMPH % 16 % (24-48); MEAN CORPUSCULAR HEMOGLOBIN 30 pg (25-35); MEAN CORPUSCULAR HGB CONC 32 g/dL (31-37); MEAN CORPUSCULAR VOLUME 93 fL (79-100); MONO % 8 % (0-9); NEUT % 73 % (31-73); PLATELET COUNT 234 x10^3/uL (140-400); RED BLOOD COUNT 4.52 x10^6/uL (4.30-5.70); RED CELL DISTRIBUTION WIDTH 12.7 % (11.5-14.5); WHITE BLOOD COUNT 8.6 x10^3/uL (4.0-11.0)
[2017-06-28 12:50] LABS: ALBUMIN 2.5 g/dL (3.4-5.0); ALBUMIN/GLOBULIN RATIO 0.6 (1.0-1.7); CALCIUM 8.5 mg/dL (8.5-10.1); CREATININE 0.8 mg/dL (0.7-1.3); GFR 102.7; POTASSIUM 4.2 mmol/L (3.5-5.1); TOTAL BILIRUBIN 0.5 mg/dL (0.2-1.0); TOTAL PROTEIN 6.5 g/dL (6.4-8.2)
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
[2017-06-28 15:00] VITALS: BP 119/70
[2017-06-28 18:48] LABS: CREATININE 1.1 mg/dL (0.7-1.3); GFR 71.1
[2017-06-28 19:00] VITALS: BP 153/81
--- NOTE | 2017-06-28 21:15 | CONS ---
DATE OF CONSULTATION: 06/28/2017 PATIENT'S ROOM: 424. REQUESTING PHYSICIAN: Naren Lima MD. REASON FOR CONSULTATION: Infection, status post right toe amputation. HISTORY OF PRESENT ILLNESS: The patient is a 51-year-old gentleman with a history of diabetes and underwent a previous right great toe amputation on 05/28/2017. Subsequently, developed a thrombosis and then underwent a right femoral thrombectomy on 06/02/2017 and had been doing fairly well; however, he was admitted back on 06/23/2017 secondary to developing of necrosis to the distal aspect of the majority of the amputation site and some drainage. He was taken back to the operating room and underwent revision of the great toe amputation through the MTP joint. He was discharged home, but then over the course of the week, developed worsening pain in the toe. He presented to Dr. Lima's outpatient office and was admitted to the hospital. He has had some chills and some sweats, but no gross fevers or rigors. His blood sugars have been elevated. He was placed on vancomycin, Zosyn and cultures were obtained. He has not had any additional imaging. PAST MEDICAL HISTORY: Positive for diabetes, hypertension, hyperlipidemia, chronic back pain, ADD, sleep disorder, peripheral arterial disease with neuropathy as well as the above-mentioned toe infection. PAST SURGICAL HISTORY: Positive for right lower extremity bypass, back surgery x 2, the above-mentioned amputation revision and a right femoral thrombectomy. REVIEW OF SYSTEMS: Otherwise negative. ALLERGIES: LISTED BACTRIM. SOCIAL HISTORY: He has a history of smoker. 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 FAMILY HISTORY: Positive for diabetes. CURRENT MEDICATIONS: Include Zosyn, vancomycin, insulin. Other meds are available and reviewed in the chart. PHYSICAL EXAMINATION: VITAL SIGNS: He has been afebrile, temperature 97.4, pulse 102, respirations 22, blood pressure 137/78 and satting 94% on room air. CONSTITUTIONAL: He is alert. He is cooperative although he looks tired, no acute distress. HEENT: Pupils are equal and reactive. Normal conjunctivae. Oral cavity, pharynx is clear. NECK: Supple. Good range of motion. LUNGS: Clear to auscultation. HEART: S1, S2. ABDOMEN: Soft, nontender, nondistended, positive bowel sounds. EXTREMITIES: Without clubbing, cyanosis. His right great toe amputation site has some scabbing about it. There is some minimal superficial sloughing. There is no gross odor. There is fluctuance. There is some minimal warmth and no gross erythema. SKIN: Warm to touch. He does have some sun exposed areas. NEUROLOGIC: He is nonfocal, moves all extremities. PSYCHIATRIC: Affect was somewhat flat today. LABORATORY DATA: He had a glucose of 324. There are no other values. There are no cultures. There is no imaging. IMPRESSION: 1. Status post revision of right great toe amputation site on 06/23/2017. 2. Postoperative pain. 3. History of group B streptococcus, Bacteroides and methicillin-susceptible Staphylococcus aureus. 4. History of peripheral arterial disease status post femoral thrombectomy on 06/02/2017. RECOMMENDATIONS: Agree with vancomycin and Zosyn. Obtain some laboratory values today. Followup cultures and response. This was discussed with his father. Thank you for participating in the patient's care. If you have any questions, please do not hesitate to contact me. BREANNE BRUNSON MD DR: SUNIL/denise JOB#: [id number] / [id number]
[2017-06-28] MEDS: INSULIN DETEMIR 300 UNITS/3 ML INSULN.PEN. SQ SCH (22:21)
[2017-06-28] MEDS ORDERED: INSULIN ASPART 300 UNITS/3 ML INSULN.PEN SQ ONE (22:30)
[2017-06-28 23:00] VITALS: BP 138/79
[2017-06-29] MEDS: PIPERACILLIN/TAZOBACTAM 3.375 GM in IV NORMAL SALINE 50ML 50 ML IV SCH ×3 (00:27→12:00)
[2017-06-29] MEDS: VANCOMYCIN 1.25 GM in IV NORMAL SALINE 250ML 250 ML IV SCH ×2 (02:14→10:00)
[2017-06-29] MEDS: MORPHINE SULFATE 4 MG/ML DISP.SYRIN. IV PRN ×2 (02:15→05:25)
[2017-06-29 02:55] VITALS: BP 146/88
[2017-06-29] MEDS: oxyCODONE/APAP 10/325 1 TAB TABLET PO PRN ×2 (06:38→12:30)
[2017-06-29 07:00] VITALS: BP 155/88
--- NOTE | 2017-06-29 07:51 | PDOC ---
ORTHO PROGRESS NOTES Subjective He still has a lot of right foot amputation site pain. He does states a little bit better. Vitals Vital Signs Date Time Temp Pulse Resp B/P (MAP) Pulse Ox O2 Delivery O2 Flow Rate FiO2 06/29/17 07:00 98.6 98 16 155/88 (110) 96 Room Air 98.6 Labs Laboratory Tests Test 06/27/17 16:12 06/27/17 20:34 06/28/17 07:47 06/28/17 11:08 Glucose (Fingerstick) 98 mg/dL (70-99) 320 mg/dL (70-99) 324 mg/dL (70-99) 337 mg/dL (70-99) Test 06/28/17 12:20 06/28/17 16:03 06/28/17 18:00 06/28/17 20:53 White Blood Count 8.6 x10^3/uL (4.0-11.0) Red Blood Count 4.52 x10^6/uL (4.30-5.70) Hemoglobin 13.6 g/dL (13.0-17.5) Hematocrit 41.9 % (39.0-53.0) Mean Corpuscular Volume 93 fL (79-100) Mean Corpuscular Hemoglobin 30 pg (25-35) Mean Corpuscular Hemoglobin Concent 32 g/dL (31-37) Red Cell Distribution Width 12.7 % (11.5-14.5) Platelet Count 234 x10^3/uL (140-400) Neutrophils (%) (Auto) 73 % (31-73) Lymphocytes (%) (Auto) 16 % (24-48) Monocytes (%) (Auto) 8 % (0-9) Eosinophils (%) (Auto) 2 % (0-3) Basophils (%) (Auto) 1 % (0-3) Neutrophils # (Auto) 6.3 x10^3uL (1.8-7.7) Lymphocytes # (Auto) 1.4 x10^3/uL (1.0-4.8) Monocytes # (Auto) 0.7 x10^3/uL (0.0-1.1) Eosinophils # (Auto) 0.2 x10^3/uL (0.0-0.7) Basophils # (Auto) 0.1 x10^3/uL (0.0-0.2) Sodium Level 136 mmol/L (136-145) Potassium Level 4.2 mmol/L (3.5-5.1) Chloride Level 99 mmol/L (98-107) Carbon Dioxide Level 33 mmol/L (21-32) Anion Gap 4 (6-14) Blood Urea Nitrogen 17 mg/dL (8-26) Creatinine 0.8 mg/dL (0.7-1.3) 1.1 mg/dL (0.7-1.3) Estimated GFR (Cockcroft-Gault) 102.7 71.1 BUN/Creatinine Ratio 21 (6-20) Glucose Level 352 mg/dL (70-99) Calcium Level 8.5 mg/dL (8.5-10.1) Total Bilirubin 0.5 mg/dL (0.2-1.0) Aspartate Amino Transf (AST/SGOT) 13 U/L (15-37) Alanine Aminotransferase (ALT/SGPT) 23 U/L (16-63) Alkaline Phosphatase 140 U/L (46-116) Total Protein 6.5 g/dL (6.4-8.2) Albumin 2.5 g/dL (3.4-5.0) Albumin/Globulin Ratio 0.6 (1.0-1.7) Glucose (Fingerstick) 351 mg/dL (70-99) 317 mg/dL (70-99) Erythrocyte Sedimentation Rate 46 (0-15) Vancomycin Level Trough 9.9 mcg/mL (10.0-20.0) Vancomycin Last Dose Date 06/28/17 Vancomycin Last Dose Time 1000 Test 06/29/17 07:23 Glucose (Fingerstick) 340 mg/dL (70-99) Laboratory Tests Test 06/28/17 11:08 06/28/17 12:20 06/28/17 16:03 06/28/17 18:00 Glucose (Fingerstick) 337 mg/dL (70-99) 351 mg/dL (70-99) White Blood Count 8.6 x10^3/uL (4.0-11.0) Red Blood Count 4.52 x10^6/uL (4.30-5.70) Hemoglobin 13.6 g/dL (13.0-17.5) Hematocrit 41.9 % (39.0-53.0) Mean Corpuscular Volume 93 fL (79-100) Mean Corpuscular Hemoglobin 30 pg (25-35) Mean Corpuscular Hemoglobin Concent 32 g/dL (31-37) Red Cell Distribution Width 12.7 % (11.5-14.5) Platelet Count 234 x10^3/uL (140-400) Neutrophils (%) (Auto) 73 % (31-73) Lymphocytes (%) (Auto) 16 % (24-48) Monocytes (%) (Auto) 8 % (0-9) Eosinophils (%) (Auto) 2 % (0-3) Basophils (%) (Auto) 1 % (0-3) Neutrophils # (Auto) 6.3 x10^3uL (1.8-7.7) Lymphocytes # (Auto) 1.4 x10^3/uL (1.0-4.8) Monocytes # (Auto) 0.7 x10^3/uL (0.0-1.1) Eosinophils # (Auto) 0.2 x10^3/uL (0.0-0.7) Basophils # (Auto) 0.1 x10^3/uL (0.0-0.2) Sodium Level 136 mmol/L (136-145) Potassium Level 4.2 mmol/L (3.5-5.1) Chloride Level 99 mmol/L (98-107) Carbon Dioxide Level 33 mmol/L (21-32) Anion Gap 4 (6-14) Blood Urea Nitrogen 17 mg/dL (8-26) Creatinine 0.8 mg/dL (0.7-1.3) 1.1 mg/dL (0.7-1.3) Estimated GFR (Cockcroft-Gault) 102.7 71.1 BUN/Creatinine Ratio 21 (6-20) Glucose Level 352 mg/dL (70-99) Calcium Level 8.5 mg/dL (8.5-10.1) Total Bilirubin 0.5 mg/dL (0.2-1.0) Aspartate Amino Transf (AST/SGOT) 13 U/L (15-37) Alanine Aminotransferase (ALT/SGPT) 23 U/L (16-63) Alkaline Phosphatase 140 U/L (46-116) Total Protein 6.5 g/dL (6.4-8.2) Albumin 2.5 g/dL (3.4-5.0) Albumin/Globulin Ratio 0.6 (1.0-1.7) Erythrocyte Sedimentation Rate 46 (0-15) Vancomycin Level Trough 9.9 mcg/mL (10.0-20.0) Vancomycin Last Dose Date 06/28/17 Vancomycin Last Dose Time 1000 Test 06/28/17 20:53 06/29/17 07:23 Glucose (Fingerstick) 317 mg/dL (70-99) 340 mg/dL (70-99) Notes He is resting, easily awakens. He has a large amount of bloody drainage at the operative site. No purulence. The skin flaps appear viable. Assessment and Plan I do not think that any further surgical intervention would benefit him at this time. I would like to see him back in my outpatient clinic this or Friday. BRYAN CHEEMA II, MD Jun 29, 2017 07:51
[2017-06-29] MEDS: INSULIN ASPART 300 UNITS/3 ML INSULN.PEN SQ SCH ×4 (09:04→12:27)
--- NOTE | 2017-06-29 10:32 | PDOC ---
GENERAL General: vss and afebrile awake and alert. bacteroides fragilis growing from foot culture and still has smell of infection. sugars high but eating snacks around the clock and discussed same with patient on numerous occasions. ortho thinks dc ok but will defer to ID as not sure what kind of skin coverage lynn has which would seem to be only po antibiotic unless augmentin would cover. Problems: VITAL SIGNS Vital Signs: Vital Signs Date Time Temp Pulse Resp B/P (MAP) Pulse Ox O2 Delivery O2 Flow Rate FiO2 06/29/17 07:40 96 Room Air 06/29/17 07:00 98.6 98 16 155/88 (110) 98.6 I & O I & O Intake and Output 06/29/17 07:00 Intake Total 580 ml Output Total 2575 ml Balance -1995 ml Intake Oral 580 ml Output Urine Total 2575 ml ALLERGIES Allergies: Allergies Coded Allergies Type Severity Reaction Last Updated Verified sulfamethoxazole Allergy Intermediate Rash 06/19/17 Yes trimethoprim Allergy Intermediate Rash 06/19/17 Yes MEDS Medications: Current Medications Medications (Trade) Dose Ordered Sig/Tory Start Time Stop Time Status Last Admin Dose Admin Dextrose (Dextrose 50%-Water Syringe) 12.5 gm PRN Q15MIN PRN 06/27/17 16:45 Insulin Aspart (NovoLOG) 5 units 1X ONCE 06/28/17 22:30 06/28/17 22:31 DC 06/28/17 22:22 5 UNITS Insulin Detemir (Levemir) 30 units QHS 06/27/17 21:00 06/28/17 22:21 30 UNITS Morphine Sulfate 4 mg PRN Q2HR PRN 06/27/17 16:30 06/29/17 05:25 4 MG Ondansetron HCl (Zofran) 4 mg PRN Q6HRS PRN 06/27/17 16:30 Oxycodone/ Acetaminophen (Percocet 10/325) 2 tab PRN Q4HRS PRN 06/27/17 16:30 06/29/17 06:38 2 TAB Piperacillin Sod/ Tazobactam Sod 3.375 gm/Sodium Chloride 50 ml @ 100 mls/hr Q6HRS 06/27/17 18:00 06/29/17 05:26 100 MLS/HR Sodium Chloride (Normal Saline Flush) 3 ml PRN DAILY PRN 06/27/17 16:30 Vancomycin HCl 1 each 1X ONCE 06/28/17 17:30 06/28/17 17:31 DC 06/28/17 18:25 1 EACH Vancomycin HCl (Vanco Per Pharmacy) 1 each PRN DAILY PRN 06/27/17 16:30 06/28/17 19:57 1 EACH Vancomycin HCl 1.25 gm/Sodium Chloride 250 ml @ 167 mls/hr Q8H 06/28/17 02:00 06/29/17 02:14 167 MLS/HR Vancomycin HCl 2 gm/Sodium Chloride 500 ml @ 250 mls/hr 1X ONCE 06/27/17 17:00 06/27/17 18:59 DC 06/27/17 18:25 250 MLS/HR LAB Lab: Laboratory Tests Test 06/28/17 11:08 06/28/17 12:20 06/28/17 16:03 06/28/17 18:00 Glucose (Fingerstick) 337 mg/dL (70-99) 351 mg/dL (70-99) White Blood Count 8.6 x10^3/uL (4.0-11.0) Red Blood Count 4.52 x10^6/uL (4.30-5.70) Hemoglobin 13.6 g/dL (13.0-17.5) Hematocrit 41.9 % (39.0-53.0) Mean Corpuscular Volume 93 fL (79-100) Mean Corpuscular Hemoglobin 30 pg (25-35) Mean Corpuscular Hemoglobin Concent 32 g/dL (31-37) Red Cell Distribution Width 12.7 % (11.5-14.5) Platelet Count 234 x10^3/uL (140-400) Neutrophils (%) (Auto) 73 % (31-73) Lymphocytes (%) (Auto) 16 % (24-48) Monocytes (%) (Auto) 8 % (0-9) Eosinophils (%) (Auto) 2 % (0-3) Basophils (%) (Auto) 1 % (0-3) Neutrophils # (Auto) 6.3 x10^3uL (1.8-7.7) Lymphocytes # (Auto) 1.4 x10^3/uL (1.0-4.8) Monocytes # (Auto) 0.7 x10^3/uL (0.0-1.1) Eosinophils # (Auto) 0.2 x10^3/uL (0.0-0.7) Basophils # (Auto) 0.1 x10^3/uL (0.0-0.2) Sodium Level 136 mmol/L (136-145) Potassium Level 4.2 mmol/L (3.5-5.1) Chloride Level 99 mmol/L (98-107) Carbon Dioxide Level 33 mmol/L (21-32) Anion Gap 4 (6-14) Blood Urea Nitrogen 17 mg/dL (8-26) Creatinine 0.8 mg/dL (0.7-1.3) 1.1 mg/dL (0.7-1.3) Estimated GFR (Cockcroft-Gault) 102.7 71.1 BUN/Creatinine Ratio 21 (6-20) Glucose Level 352 mg/dL (70-99) Calcium Level 8.5 mg/dL (8.5-10.1) Total Bilirubin 0.5 mg/dL (0.2-1.0) Aspartate Amino Transf (AST/SGOT) 13 U/L (15-37) Alanine Aminotransferase (ALT/SGPT) 23 U/L (16-63) Alkaline Phosphatase 140 U/L (46-116) Total Protein 6.5 g/dL (6.4-8.2) Albumin 2.5 g/dL (3.4-5.0) Albumin/Globulin Ratio 0.6 (1.0-1.7) Erythrocyte Sedimentation Rate 46 (0-15) Vancomycin Level Trough 9.9 mcg/mL (10.0-20.0) Vancomycin Last Dose Date 06/28/17 Vancomycin Last Dose Time 1000 Test 06/28/17 20:53 06/29/17 07:23 Glucose (Fingerstick) 317 mg/dL (70-99) 340 mg/dL (70-99) PAT MOSHER MD Jun 29, 2017 10:32
[2017-06-29 11:00] VITALS: BP 130/70
--- NOTE | 2017-06-29 13:42 | PDOC ---
Infectious Disease Note Subjective Subjective Wants to go home, IV out Pain level less ROS ROS GEN: Denies fevers, chills, sweats CV: Denies chest pain RESP: Denies shortness of air, cough GI: Denies n/v/d Vital Sign Vital Signs Vital Signs Date Time Temp Pulse Resp B/P (MAP) Pulse Ox O2 Delivery O2 Flow Rate FiO2 06/29/17 12:30 96 Room Air 06/29/17 11:00 97.7 98 20 130/70 (90) 97.7 Physical Exam PHYSICAL EXAM GENERAL: Lying down LUNGS: Clear HEART: S1 and S2 ABD: Soft, NT EXT: No edema, no cyanosis. Right foot bandaged, changed earlier [employer]: Alert, oriented x 3, no focal neurologic deficit SKIN: No rash IV: out Labs Lab Laboratory Tests Test 06/28/17 16:03 06/28/17 18:00 06/28/17 20:53 06/29/17 07:23 Glucose (Fingerstick) 351 mg/dL (70-99) 317 mg/dL (70-99) 340 mg/dL (70-99) Erythrocyte Sedimentation Rate 46 (0-15) Creatinine 1.1 mg/dL (0.7-1.3) Estimated GFR (Cockcroft-Gault) 71.1 Vancomycin Level Trough 9.9 mcg/mL (10.0-20.0) Vancomycin Last Dose Date 06/28/17 Vancomycin Last Dose Time 1000 Test 06/29/17 11:40 Glucose (Fingerstick) 233 mg/dL (70-99) Micro 06/28. GRAM STAIN Final WBCS NONE SEEN ORGANISMS NONE SEEN Objective Assessment S/p revision right Great toe amp site 06/23. GS no org, cult pending Post op pain, better H/o Group B strep/Bacteroides/MSSA H/o PAD s/p right femoral thrombectomy 06/02 Plan Plan of Care Wants to go home He pulled IV out, not wanting another one Culture is still pending home on Augmentin. Explained if wound fails again he may need to leave it open and use a vac and IV abc. Needs to control his sugars - nonadherent D/w Ryann -nursing Attending Co-Sign Attending Co-Sign The patient was seen and interviewed as well as examined at the bedside. The chart was reviewed. The case was discussed. Agree with the plan of care. SUBLETTE,REINIER C RN HEART Jun 29, 2017 13:42 BREANNE BRUNSON MD Jun 29, 2017 14:46
[2017-06-29 15:00] VITALS: BP 142/76
== END 2017-06-29 16:00 | disposition home or self-care (01) | DRG 603 ==
LOC: 4 NORTH 13:39
PROVIDERS: ADMIT Family Medicine; ATTEND Family Medicine
DX: L03.031 Cellulitis of right toe (principal); G89.18 Other acute postprocedural pain; E11.40 Type 2 diabetes mellitus with diabetic neuropathy, unspecified; E78.5 Hyperlipidemia, unspecified; F17.200 Nicotine dependence, unspecified, uncomplicated; I10 Essential (primary) hypertension; E11.51 Type 2 diabetes mellitus with diabetic peripheral angiopathy without gangrene; Z82.49 Family history of ischemic heart disease and other diseases of the circulatory system; Z83.3 Family history of diabetes mellitus; Z89.411 Acquired absence of right great toe; Z89.421 Acquired absence of other right toe(s); G89.29 Other chronic pain; Z88.2 Allergy status to sulfonamides; Z88.8 Allergy status to other drugs, medicaments and biological substances
CPT/HCPCS: 36415; 80053; 80202; 82565; 82962; 85027; 85651; 87071; 87075; 87205; J1815; J2270; J2543; J3370; J7040; J7050; J7030

== ENCOUNTER → 2017-07-10 | Outpatient (CLI) | payer BC ==
[2017-06-29 15:00] VITALS: BP 142/76
== END | disposition home or self-care (01) ==
LOC: PMGWOUND 09:27
PROVIDERS: ATTEND Emergency Medicine Undersea and Hyperbaric Medicine
DX: E11.621 Type 2 diabetes mellitus with foot ulcer (principal); L97.513 Non-pressure chronic ulcer of other part of right foot with necrosis of muscle; I10 Essential (primary) hypertension; E78.5 Hyperlipidemia, unspecified; E11.40 Type 2 diabetes mellitus with diabetic neuropathy, unspecified; E11.69 Type 2 diabetes mellitus with other specified complication; M86.671 Other chronic osteomyelitis, right ankle and foot; E11.52 Type 2 diabetes mellitus with diabetic peripheral angiopathy with gangrene; F17.210 Nicotine dependence, cigarettes, uncomplicated; Z88.1 Allergy status to other antibiotic agents; Z88.8 Allergy status to other drugs, medicaments and biological substances; Z88.2 Allergy status to sulfonamides; Z89.411 Acquired absence of right great toe; Z89.421 Acquired absence of other right toe(s); Z79.82 Long term (current) use of aspirin
CPT/HCPCS: 99214

== ENCOUNTER → 2017-07-17 | Outpatient (CLI) | payer BC ==
[2017-07-16 11:00] VITALS: BP 155/80
== END | disposition home or self-care (01) ==
LOC: PMGWOUND 09:41
PROVIDERS: ATTEND Emergency Medicine Undersea and Hyperbaric Medicine
DX: T87.89 Other complications of amputation stump (principal); E11.621 Type 2 diabetes mellitus with foot ulcer; L97.514 Non-pressure chronic ulcer of other part of right foot with necrosis of bone; E11.69 Type 2 diabetes mellitus with other specified complication; M86.671 Other chronic osteomyelitis, right ankle and foot; B96.6 Bacteroides fragilis [B. fragilis] as the cause of diseases classified elsewhere; H54.41 Blindness, right eye, normal vision left eye; I10 Essential (primary) hypertension; E11.52 Type 2 diabetes mellitus with diabetic peripheral angiopathy with gangrene; E11.42 Type 2 diabetes mellitus with diabetic polyneuropathy; E78.5 Hyperlipidemia, unspecified; F17.210 Nicotine dependence, cigarettes, uncomplicated; Z88.8 Allergy status to other drugs, medicaments and biological substances; Z88.1 Allergy status to other antibiotic agents; Z88.2 Allergy status to sulfonamides; Z88.3 Allergy status to other anti-infective agents; Z79.2 Long term (current) use of antibiotics; Z79.82 Long term (current) use of aspirin; Z79.1 Long term (current) use of non-steroidal anti-inflammatories (NSAID); Y83.5 Amputation of limb(s) as the cause of abnormal reaction of the patient, or of later complication, without mention of misadventure at the time of the procedure
CPT/HCPCS: 82962; 99214; G0277

== ENCOUNTER → 2017-07-23 | Outpatient (CLI) | payer BC ==
[2017-07-16 11:00] VITALS: BP 155/80
== END | disposition home or self-care (01) ==
LOC: PMGWOUND 10:01
PROVIDERS: ATTEND Preventive Medicine Undersea and Hyperbaric Medicine
DX: E11.621 Type 2 diabetes mellitus with foot ulcer (principal); L97.514 Non-pressure chronic ulcer of other part of right foot with necrosis of bone; E11.69 Type 2 diabetes mellitus with other specified complication; M86.671 Other chronic osteomyelitis, right ankle and foot; B96.6 Bacteroides fragilis [B. fragilis] as the cause of diseases classified elsewhere; F17.210 Nicotine dependence, cigarettes, uncomplicated
CPT/HCPCS: 97597; G0277

== ENCOUNTER → 2017-09-09 | Outpatient (CLI) | payer BC ==
[2017-07-16 11:00] VITALS: BP 155/80
== END | disposition home or self-care (01) ==
LOC: PMGWOUND 08:25
PROVIDERS: ATTEND Emergency Medicine Undersea and Hyperbaric Medicine
DX: T87.89 Other complications of amputation stump (principal); E11.621 Type 2 diabetes mellitus with foot ulcer; L97.514 Non-pressure chronic ulcer of other part of right foot with necrosis of bone; E11.69 Type 2 diabetes mellitus with other specified complication; M86.671 Other chronic osteomyelitis, right ankle and foot; E11.42 Type 2 diabetes mellitus with diabetic polyneuropathy; E11.52 Type 2 diabetes mellitus with diabetic peripheral angiopathy with gangrene; B96.6 Bacteroides fragilis [B. fragilis] as the cause of diseases classified elsewhere; E78.5 Hyperlipidemia, unspecified; H54.1131 Blindness right eye category 3, low vision left eye category 1; F17.210 Nicotine dependence, cigarettes, uncomplicated; Y83.5 Amputation of limb(s) as the cause of abnormal reaction of the patient, or of later complication, without mention of misadventure at the time of the procedure
CPT/HCPCS: 87071; 87075; 87186; 87205; 97605

== ENCOUNTER → 2017-09-11 | Outpatient (CLI) | payer BC ==
[2017-07-16 11:00] VITALS: BP 155/80
== END | disposition home or self-care (01) ==
LOC: PMGWOUND 08:15
PROVIDERS: ATTEND Emergency Medicine Undersea and Hyperbaric Medicine
DX: T87.89 Other complications of amputation stump (principal); E11.621 Type 2 diabetes mellitus with foot ulcer; L97.514 Non-pressure chronic ulcer of other part of right foot with necrosis of bone; E11.69 Type 2 diabetes mellitus with other specified complication; M86.671 Other chronic osteomyelitis, right ankle and foot; B96.6 Bacteroides fragilis [B. fragilis] as the cause of diseases classified elsewhere; E78.5 Hyperlipidemia, unspecified; E11.42 Type 2 diabetes mellitus with diabetic polyneuropathy; E11.52 Type 2 diabetes mellitus with diabetic peripheral angiopathy with gangrene; H54.1131 Blindness right eye category 3, low vision left eye category 1; F17.210 Nicotine dependence, cigarettes, uncomplicated; Y83.5 Amputation of limb(s) as the cause of abnormal reaction of the patient, or of later complication, without mention of misadventure at the time of the procedure
CPT/HCPCS: 97605

== ENCOUNTER → 2017-09-15 | Outpatient (CLI) | payer BC ==
[2017-07-16 11:00] VITALS: BP 155/80
== END | disposition home or self-care (01) ==
LOC: PMGWOUND 08:24
PROVIDERS: ATTEND Emergency Medicine Undersea and Hyperbaric Medicine
DX: T87.89 Other complications of amputation stump (principal); E11.621 Type 2 diabetes mellitus with foot ulcer; L97.514 Non-pressure chronic ulcer of other part of right foot with necrosis of bone; E11.69 Type 2 diabetes mellitus with other specified complication; M86.671 Other chronic osteomyelitis, right ankle and foot; E11.42 Type 2 diabetes mellitus with diabetic polyneuropathy; E11.52 Type 2 diabetes mellitus with diabetic peripheral angiopathy with gangrene; B96.6 Bacteroides fragilis [B. fragilis] as the cause of diseases classified elsewhere; F17.210 Nicotine dependence, cigarettes, uncomplicated; Y83.5 Amputation of limb(s) as the cause of abnormal reaction of the patient, or of later complication, without mention of misadventure at the time of the procedure
CPT/HCPCS: 97597

== ENCOUNTER → 2017-09-17 | Outpatient (CLI) | payer BC ==
[2017-07-16 11:00] VITALS: BP 155/80
== END | disposition home or self-care (01) ==
LOC: PMGWOUND 09:00
PROVIDERS: ATTEND Preventive Medicine Undersea and Hyperbaric Medicine
DX: T87.89 Other complications of amputation stump (principal); E11.621 Type 2 diabetes mellitus with foot ulcer; L97.514 Non-pressure chronic ulcer of other part of right foot with necrosis of bone; E11.69 Type 2 diabetes mellitus with other specified complication; M86.671 Other chronic osteomyelitis, right ankle and foot; E11.42 Type 2 diabetes mellitus with diabetic polyneuropathy; E11.52 Type 2 diabetes mellitus with diabetic peripheral angiopathy with gangrene; E78.5 Hyperlipidemia, unspecified; B96.6 Bacteroides fragilis [B. fragilis] as the cause of diseases classified elsewhere; F17.210 Nicotine dependence, cigarettes, uncomplicated; Z79.82 Long term (current) use of aspirin; Z79.2 Long term (current) use of antibiotics
CPT/HCPCS: 97605

== ENCOUNTER → 2017-09-19 | Outpatient (CLI) | payer BC ==
[2017-07-16 11:00] VITALS: BP 155/80
== END | disposition home or self-care (01) ==
LOC: PMGWOUND 08:58
PROVIDERS: ATTEND Preventive Medicine Undersea and Hyperbaric Medicine
DX: T87.89 Other complications of amputation stump (principal); E11.621 Type 2 diabetes mellitus with foot ulcer; L97.514 Non-pressure chronic ulcer of other part of right foot with necrosis of bone; E11.69 Type 2 diabetes mellitus with other specified complication; M86.671 Other chronic osteomyelitis, right ankle and foot; E78.5 Hyperlipidemia, unspecified; E11.42 Type 2 diabetes mellitus with diabetic polyneuropathy; E11.52 Type 2 diabetes mellitus with diabetic peripheral angiopathy with gangrene; F17.210 Nicotine dependence, cigarettes, uncomplicated; B96.6 Bacteroides fragilis [B. fragilis] as the cause of diseases classified elsewhere; Y83.5 Amputation of limb(s) as the cause of abnormal reaction of the patient, or of later complication, without mention of misadventure at the time of the procedure
CPT/HCPCS: 97605

== ENCOUNTER → 2017-09-24 | Outpatient (CLI) | payer BC ==
[2017-07-16 11:00] VITALS: BP 155/80
== END | disposition home or self-care (01) ==
LOC: PMGWOUND 08:40
PROVIDERS: ATTEND Preventive Medicine Undersea and Hyperbaric Medicine
DX: T87.89 Other complications of amputation stump (principal); E11.621 Type 2 diabetes mellitus with foot ulcer; L97.514 Non-pressure chronic ulcer of other part of right foot with necrosis of bone; E78.5 Hyperlipidemia, unspecified; E11.69 Type 2 diabetes mellitus with other specified complication; M86.671 Other chronic osteomyelitis, right ankle and foot; E11.42 Type 2 diabetes mellitus with diabetic polyneuropathy; E11.52 Type 2 diabetes mellitus with diabetic peripheral angiopathy with gangrene; F17.210 Nicotine dependence, cigarettes, uncomplicated; B96.6 Bacteroides fragilis [B. fragilis] as the cause of diseases classified elsewhere; Y83.5 Amputation of limb(s) as the cause of abnormal reaction of the patient, or of later complication, without mention of misadventure at the time of the procedure
CPT/HCPCS: 97597; 97605

== ENCOUNTER → 2017-10-06 | Outpatient (CLI) | payer BC ==
[2017-07-16 11:00] VITALS: BP 155/80
== END | disposition home or self-care (01) ==
LOC: PMGWOUND 08:26
PROVIDERS: ATTEND Emergency Medicine Undersea and Hyperbaric Medicine
DX: T87.89 Other complications of amputation stump (principal); E11.621 Type 2 diabetes mellitus with foot ulcer; L97.514 Non-pressure chronic ulcer of other part of right foot with necrosis of bone; E11.69 Type 2 diabetes mellitus with other specified complication; M86.671 Other chronic osteomyelitis, right ankle and foot; F17.210 Nicotine dependence, cigarettes, uncomplicated; E78.5 Hyperlipidemia, unspecified; E11.42 Type 2 diabetes mellitus with diabetic polyneuropathy; E11.52 Type 2 diabetes mellitus with diabetic peripheral angiopathy with gangrene; Z89.411 Acquired absence of right great toe; Y83.5 Amputation of limb(s) as the cause of abnormal reaction of the patient, or of later complication, without mention of misadventure at the time of the procedure
CPT/HCPCS: 99214

== ENCOUNTER → 2017-10-20 | Outpatient (CLI) | payer BC ==
[2017-07-16 11:00] VITALS: BP 155/80
== END | disposition home or self-care (01) ==
LOC: PMGWOUND 07:54
PROVIDERS: ATTEND Emergency Medicine Undersea and Hyperbaric Medicine
DX: T87.89 Other complications of amputation stump (principal); E11.621 Type 2 diabetes mellitus with foot ulcer; L97.514 Non-pressure chronic ulcer of other part of right foot with necrosis of bone; E78.5 Hyperlipidemia, unspecified; E11.69 Type 2 diabetes mellitus with other specified complication; M86.671 Other chronic osteomyelitis, right ankle and foot; E11.42 Type 2 diabetes mellitus with diabetic polyneuropathy; E11.52 Type 2 diabetes mellitus with diabetic peripheral angiopathy with gangrene; F17.210 Nicotine dependence, cigarettes, uncomplicated; Y83.5 Amputation of limb(s) as the cause of abnormal reaction of the patient, or of later complication, without mention of misadventure at the time of the procedure
CPT/HCPCS: 99212

== ENCOUNTER 2018-01-29 11:17 | Emergency (ER) | payer BC ==
[2018-01-29] MEDS ORDERED: 0.9 % SODIUM CHLORIDE 10 ML DISP.SYRIN. IV (11:30)
[2018-01-29] MEDS: IV NORMAL SALINE 1000ML BAG 1,000 ML IV (11:57)
[2018-01-29 12:03] LABS: ADD MAN DIFF? NO
[2018-01-29 12:11] LABS: BASO # 0.1 x10^3/uL (0.0-0.2); BASO % 1 % (0-3); EOS % 1 % (0-3); HEMATOCRIT 45.2 % (39.0-53.0); HEMOGLOBIN 15.3 g/dL (13.0-17.5); LYMPH # 1.9 x10^3/uL (1.0-4.8); LYMPH % 25 % (24-48); MEAN CORPUSCULAR HEMOGLOBIN 31 pg (25-35); MEAN CORPUSCULAR HGB CONC 34 g/dL (31-37); MEAN CORPUSCULAR VOLUME 92 fL (79-100); MONO # 0.6 x10^3/uL (0.0-1.1); MONO % 9 % (0-9); NEUT # 4.8 x10^3uL (1.8-7.7); NEUT % 65 % (31-73); PLATELET COUNT 231 x10^3/uL (140-400); RED BLOOD COUNT 4.93 x10^6/uL (4.30-5.70); RED CELL DISTRIBUTION WIDTH 12.8 % (11.5-14.5); WHITE BLOOD COUNT 7.4 x10^3/uL (4.0-11.0)
[2018-01-29 12:25] LABS: ANION GAP 9 (6-14); BLOOD UREA NITROGEN 28 mg/dL (8-26); CALCIUM 10.2 mg/dL (8.5-10.1); CARBON DIOXIDE 26 mmol/L (21-32); CHLORIDE 98 mmol/L (98-107); CREATININE 1.1 mg/dL (0.7-1.3); GFR 70.9; GLUCOSE 191 mg/dL (70-99); POTASSIUM 3.7 mmol/L (3.5-5.1); SODIUM 133 mmol/L (136-145)
[2018-01-29 12:28] LABS: ALBUMIN 3.1 g/dL (3.4-5.0); ALK PHOS 216 U/L (46-116); ALT (SGPT) 60 U/L (16-63); AST (SGOT) 29 U/L (15-37); DIRECT BILIRUBIN 0.1 mg/dL (0.0-0.2); LIPASE 153 U/L (73-393); TOTAL BILIRUBIN 0.6 mg/dL (0.2-1.0)
[2018-01-29 12:29] LABS: TROPONINI < 0.017 ng/mL (0.000-0.055)
[2018-01-29 12:36] LABS: NT-PRO BNP 89 pg/mL (0-124); THYROID STIM HORMONE (TSH) 5.576 uIU/mL (0.358-3.74)
[2018-01-29 12:36] LABS: CKMB INDEX 6.4 % (0-4); CKMB MASS 7.1 ng/mL (0.0-3.6); CREATINE KINASE 111 U/L (39-308)
== END 2018-01-29 14:34 | disposition home or self-care (01) ==
LOC: ER 11:17
DX: R42 Dizziness and giddiness (principal); R55 Syncope and collapse; F41.9 Anxiety disorder, unspecified; E11.51 Type 2 diabetes mellitus with diabetic peripheral angiopathy without gangrene; I10 Essential (primary) hypertension; Z89.411 Acquired absence of right great toe; Z88.2 Allergy status to sulfonamides; Z88.1 Allergy status to other antibiotic agents
CPT/HCPCS: 36415; 71045; 80048; 80076; 82553; 83690; 83735; 83880; 84443; 84484; 85025; 93005; 96361; 96374; 99285-25; J2060; J7030

== ENCOUNTER → 2018-01-29 | Outpatient (CLI) | payer BC ==
[2018-01-29 11:12] LABS: POC GLUCOSE 233 mg/dL (70-99)
== END | disposition home or self-care (01) ==
LOC: PMGWOUND 10:00
DX: E11.621 Type 2 diabetes mellitus with foot ulcer (principal); L97.522 Non-pressure chronic ulcer of other part of left foot with fat layer exposed; F17.210 Nicotine dependence, cigarettes, uncomplicated; E78.5 Hyperlipidemia, unspecified; E11.69 Type 2 diabetes mellitus with other specified complication; M86.671 Other chronic osteomyelitis, right ankle and foot; E11.42 Type 2 diabetes mellitus with diabetic polyneuropathy; E11.52 Type 2 diabetes mellitus with diabetic peripheral angiopathy with gangrene; I96 Gangrene, not elsewhere classified; H54.413A Blindness right eye category 3, normal vision left eye; Z79.01 Long term (current) use of anticoagulants; Z89.411 Acquired absence of right great toe; Z89.022 Acquired absence of left finger(s)
CPT/HCPCS: 82962; 97597

== ENCOUNTER → 2018-02-05 | Outpatient (CLI) | payer BC | END | disposition home or self-care (01) | LOC: PMGWOUND 08:38 | DX: E11.621 Type 2 diabetes mellitus with foot ulcer (principal); L97.522 Non-pressure chronic ulcer of other part of left foot with fat layer exposed; F17.210 Nicotine dependence, cigarettes, uncomplicated; E78.5 Hyperlipidemia, unspecified; E11.69 Type 2 diabetes mellitus with other specified complication; M86.671 Other chronic osteomyelitis, right ankle and foot; E11.42 Type 2 diabetes mellitus with diabetic polyneuropathy; E11.52 Type 2 diabetes mellitus with diabetic peripheral angiopathy with gangrene; I96 Gangrene, not elsewhere classified; H54.413A Blindness right eye category 3, normal vision left eye; Z79.01 Long term (current) use of anticoagulants; Z89.411 Acquired absence of right great toe; Z89.022 Acquired absence of left finger(s) | CPT/HCPCS: 11042 ==

== ENCOUNTER 2018-02-09 16:44 | Inpatient (IN) | payer BC ==
[2018-02-09] MEDS: IV NORMAL SALINE 1000ML BAG 1,000 ML IV ×2 (01:00→21:02)
[2018-02-09] MEDS ORDERED: DEXTROSE 50% 25 GM / 50ML DISP.SYRIN. IV (17:30)
[2018-02-09 17:56] LABS: POC GLUCOSE 252 mg/dL (70-99)
[2018-02-09] MEDS: PIPERACILLIN/TAZOBACTAM 3.375 GM in IV NORMAL SALINE 100ML 100 ML IV (18:00)
[2018-02-09] MEDS: oxyCODONE/APAP 10/325 1 TAB TABLET PO (18:11)
[2018-02-09 18:19] LABS: ADD MAN DIFF? NO
[2018-02-09 18:21] LABS: BASO # 0.1 x10^3/uL (0.0-0.2); BASO % 0 % (0-3); EOS % 0 % (0-3); HEMATOCRIT 40.2 % (39.0-53.0); HEMOGLOBIN 13.6 g/dL (13.0-17.5); LYMPH # 1.1 x10^3/uL (1.0-4.8); LYMPH % 8 % (24-48); MEAN CORPUSCULAR HEMOGLOBIN 31 pg (25-35); MEAN CORPUSCULAR HGB CONC 34 g/dL (31-37); MEAN CORPUSCULAR VOLUME 92 fL (79-100); MONO # 0.9 x10^3/uL (0.0-1.1); MONO % 7 % (0-9); NEUT % 84 % (31-73); PLATELET COUNT 218 x10^3/uL (140-400); RED BLOOD COUNT 4.37 x10^6/uL (4.30-5.70); WHITE BLOOD COUNT 13.1 x10^3/uL (4.0-11.0)
[2018-02-09 18:32] LABS: ANION GAP 8 (6-14); BLOOD UREA NITROGEN 28 mg/dL (8-26); CALCIUM 9.4 mg/dL (8.5-10.1); CARBON DIOXIDE 28 mmol/L (21-32); CHLORIDE 97 mmol/L (98-107); CREATININE 0.9 mg/dL (0.7-1.3); GFR 89.3; GLUCOSE 235 mg/dL (70-99); POTASSIUM 4.1 mmol/L (3.5-5.1); SODIUM 133 mmol/L (136-145)
[2018-02-09 18:41] LABS: LACTIC ACID 2.4 mmol/L (0.4-2.0)
[2018-02-09] MEDS: VANCOMYCIN 2 GM in IV DEXTROSE 5 %-0.2 % NACL 500 ML IV (19:21)
[2018-02-09 19:24] LABS: SEDIMENTATION RATE 44 (0-15)
[2018-02-09] MEDS: VANCOMYCIN PER PHARMACY MC (20:13)
[2018-02-09 20:43] LABS: POC GLUCOSE 151 mg/dL (70-99)
[2018-02-09] MEDS: LORazepam 1 MG TABLET PO (21:01)
[2018-02-09 22:39] LABS: LACTIC ACID 1.3 mmol/L (0.4-2.0)
[2018-02-10] MEDS: PIPERACILLIN/TAZOBACTAM 3.375 GM in IV NORMAL SALINE 100ML 100 ML IV ×4 (00:04→16:32)
[2018-02-10] MEDS: oxyCODONE/APAP 10/325 1 TAB TABLET PO ×2 (02:12→13:52)
[2018-02-10] MEDS: IV NORMAL SALINE 1000ML BAG 1,000 ML IV ×2 (06:45→16:45)
[2018-02-10 08:20] LABS: BILIRUBIN,URINE NEGATIVE (NEG); CLARITY,URINE CLEAR; COLOR,URINE YELLOW; GLUCOSE,URINE >=1000 mg/dL (NEG); NITRITE,URINE NEGATIVE (NEG); PROTEIN,URINE NEGATIVE (NEG-TRACE); UROBILINOGEN,URINE 0.2 mg/dL (0.2 mg/dL)
[2018-02-10] MEDS: VANCOMYCIN 1.5 GM in IV DEXTROSE 5% 500 ML IV ×2 (08:27→20:18)
[2018-02-10 08:32] LABS: BACTERIA,URINE 0 /HPF (0-FEW); SQUAMOUS EPITHELIAL CELL,UR FEW /LPF; WBC,URINE OCC /HPF (0-4)
[2018-02-10 08:33] LABS: RBC,URINE 0 /HPF (0-2)
[2018-02-10] MEDS: INSULIN ASPART 300 UNITS/3 ML INSULN.PEN SQ ×8 (08:34→16:11)
[2018-02-10] MEDS: LISINOPRIL 20 MG TABLET PO (08:38)
[2018-02-10] MEDS: LORazepam 1 MG TABLET PO ×2 (08:38→13:52)
[2018-02-10 10:39] LABS: POC GLUCOSE 578 mg/dL (70-99)
[2018-02-10 10:39] LABS: POC GLUCOSE 536 mg/dL (70-99)
[2018-02-10 12:16] LABS: POC GLUCOSE 398 mg/dL (70-99)
[2018-02-10] MEDS: VANCOMYCIN PER PHARMACY MC (12:58)
[2018-02-10] MEDS ORDERED: 0.9 % SODIUM CHLORIDE 10 ML DISP.SYRIN. IV ×2 (14:45)
[2018-02-10] MEDS: INSULIN REGULAR VIAL 150 UNIT in 0.9 % SODIUM CHLORIDE 150ML 150 ML IV (15:07)
[2018-02-10 16:15] LABS: POC GLUCOSE 274 mg/dL (70-99)
[2018-02-10 16:15] LABS: POC GLUCOSE 311 mg/dL (70-99)
[2018-02-10 16:15] LABS: POC GLUCOSE 359 mg/dL (70-99)
[2018-02-10 17:18] LABS: POC GLUCOSE 228 mg/dL (70-99)
[2018-02-10 18:20] LABS: POC GLUCOSE 202 mg/dL (70-99)
[2018-02-10 19:29] LABS: POC GLUCOSE 202 mg/dL (70-99)
[2018-02-10 19:29] LABS: POC GLUCOSE 211 mg/dL (70-99)
[2018-02-10] MEDS: LACTOBACILLUS RHAMNOSUS GG 1 CAPSULE. PO (21:00)
[2018-02-10] MEDS: INSULIN DETEMIR 300 UNITS/3 ML INSULN.PEN. SQ (21:00)
[2018-02-10 21:06] LABS: POC GLUCOSE 154 mg/dL (70-99)
[2018-02-10 21:37] LABS: POC GLUCOSE 216 mg/dL (70-99)
[2018-02-10 22:50] LABS: POC GLUCOSE 214 mg/dL (70-99)
[2018-02-10 23:56] LABS: POC GLUCOSE 226 mg/dL (70-99)
[2018-02-11] MEDS: PIPERACILLIN/TAZOBACTAM 3.375 GM in IV NORMAL SALINE 100ML 100 ML IV ×5 (00:30→23:03)
[2018-02-11 01:27] LABS: GLUCOSE 163 mg/dL (70-99)
[2018-02-11 02:45] LABS: POC GLUCOSE 82 mg/dL (70-99)
[2018-02-11] MEDS: IV NORMAL SALINE 1000ML BAG 1,000 ML IV ×3 (02:45→22:45)
[2018-02-11 03:18] LABS: HEMOGLOBIN A1C 16.7 % (4.8-5.6)
[2018-02-11 03:55] LABS: POC GLUCOSE 131 mg/dL (70-99)
[2018-02-11 03:55] LABS: POC GLUCOSE 138 mg/dL (70-99)
[2018-02-11 04:58] LABS: POC GLUCOSE 113 mg/dL (70-99)
[2018-02-11 05:53] LABS: POC GLUCOSE 104 mg/dL (70-99)
[2018-02-11] MEDS ORDERED: BUPIVACAINE MPF 0.5% 30 ML VIAL. (06:07)
[2018-02-11] MEDS ORDERED: LIDOCAINE 1% PF 30 ML VIAL. (06:07)
[2018-02-11] MEDS ORDERED: LIDOCAINE 1% PF 2 ML VIAL. ID ×2 (07:00→07:15)
[2018-02-11] MEDS: IV RINGERS,LACTATED 1000ML 1,000 ML IV ×2 (07:00→07:14)
[2018-02-11] MEDS ORDERED: MORPHINE SULFATE 2 MG/ML DISP.SYRIN. IV ×2 (07:00→07:15)
[2018-02-11] MEDS ORDERED: fentaNYL PF VIAL 100 MCG/2 ML VIAL IV ×3 (07:00→07:15)
[2018-02-11] MEDS ORDERED: PROCHLORPERAZINE 10 MG/2 ML VIAL. IV ×2 (07:00→07:15)
[2018-02-11] MEDS ORDERED: HYDROmorphone 2 MG/ML VIAL IV (07:00)
[2018-02-11] MEDS ORDERED: ONDANSETRON PF 4 MG/2 ML VIAL. IV ×2 (07:00→07:15)
[2018-02-11 07:04] LABS: POC GLUCOSE 121 mg/dL (70-99)
[2018-02-11 07:18] LABS: VANC TR 8.8 mcg/mL (10.0-20.0)
[2018-02-11] MEDS ORDERED: SEVOFLURANE 16 TO 30 MINUTES. IH (07:24)
[2018-02-11] MEDS ORDERED: PROPOFOL 20 ML IV (07:24)
[2018-02-11] MEDS ORDERED: LIDOCAINE 1% PF 5 ML VIAL. (07:24)
[2018-02-11] MEDS: INSULIN ASPART 300 UNITS/3 ML INSULN.PEN SQ ×5 (07:30→16:42)
[2018-02-11] MEDS ORDERED: FAMOTIDINE 20 MG/2 ML VIAL (07:31)
[2018-02-11] MEDS ORDERED: ONDANSETRON PF 4 MG/2 ML VIAL. (07:31)
[2018-02-11 08:10] LABS: POC GLUCOSE 118 mg/dL (70-99)
[2018-02-11] MEDS: fentaNYL PF VIAL 100 MCG/2 ML VIAL IV ×2 (08:29→08:43)
[2018-02-11] MEDS: VANCOMYCIN 1.5 GM in IV DEXTROSE 5% 500 ML IV (08:36)
[2018-02-11] MEDS: VANCOMYCIN PER PHARMACY MC (08:56)
[2018-02-11] MEDS: LACTOBACILLUS RHAMNOSUS GG 1 CAPSULE. PO ×2 (09:00→20:27)
[2018-02-11] MEDS: LORazepam 1 MG TABLET PO ×2 (09:00→20:27)
[2018-02-11] MEDS: LISINOPRIL 20 MG TABLET PO (09:00)
[2018-02-11 09:40] LABS: POC GLUCOSE 196 mg/dL (70-99)
[2018-02-11 10:36] LABS: POC GLUCOSE 193 mg/dL (70-99)
[2018-02-11 11:55] LABS: POC GLUCOSE 170 mg/dL (70-99)
[2018-02-11 12:00] LABS: POC GLUCOSE 193 mg/dL (70-99)
[2018-02-11] MEDS: oxyCODONE/APAP 10/325 1 TAB TABLET PO ×2 (13:11→20:30)
[2018-02-11 13:13] LABS: POC GLUCOSE 154 mg/dL (70-99)
[2018-02-11 14:24] LABS: POC GLUCOSE 112 mg/dL (70-99)
[2018-02-11 16:46] LABS: POC GLUCOSE 164 mg/dL (70-99)
[2018-02-11 16:49] LABS: POC GLUCOSE 235 mg/dL (70-99)
[2018-02-11] MEDS: VANCOMYCIN 1.5 GM in IV DEXTROSE 5 %-0.2 % NACL 500 ML IV (17:07)
[2018-02-11 21:01] LABS: POC GLUCOSE 237 mg/dL (70-99)
[2018-02-11 22:37] LABS: POC GLUCOSE 116 mg/dL (70-99)
[2018-02-11 22:37] LABS: POC GLUCOSE 273 mg/dL (70-99)
[2018-02-12 00:17] LABS: POC GLUCOSE 204 mg/dL (70-99)
[2018-02-12] MEDS: VANCOMYCIN 1.5 GM in IV DEXTROSE 5 %-0.2 % NACL 500 ML IV (00:30)
[2018-02-12 01:28] LABS: POC GLUCOSE 185 mg/dL (70-99)
[2018-02-12 04:04] LABS: POC GLUCOSE 214 mg/dL (70-99)
[2018-02-12 04:06] LABS: POC GLUCOSE 164 mg/dL (70-99)
[2018-02-12] MEDS: oxyCODONE/APAP 10/325 1 TAB TABLET PO ×4 (04:10→20:29)
[2018-02-12] MEDS: INSULIN REGULAR VIAL 150 UNIT in 0.9 % SODIUM CHLORIDE 150ML 150 ML IV (04:14)
[2018-02-12 05:24] LABS: POC GLUCOSE 137 mg/dL (70-99)
[2018-02-12] MEDS: PIPERACILLIN/TAZOBACTAM 3.375 GM in IV NORMAL SALINE 100ML 100 ML IV ×4 (05:35→23:41)
[2018-02-12 06:26] LABS: POC GLUCOSE 102 mg/dL (70-99)
[2018-02-12] MEDS: INSULIN ASPART 300 UNITS/3 ML INSULN.PEN SQ ×3 (07:39→15:38)
[2018-02-12] MEDS: LORazepam 1 MG TABLET PO ×2 (08:32→20:26)
[2018-02-12] MEDS: LISINOPRIL 20 MG TABLET PO (08:32)
[2018-02-12] MEDS: LACTOBACILLUS RHAMNOSUS GG 1 CAPSULE. PO ×2 (08:32→20:26)
[2018-02-12 09:19] LABS: CREATININE 0.7 mg/dL (0.7-1.3)
[2018-02-12 09:19] LABS: GFR 119.4; VANC TR 12.3 mcg/mL (10.0-20.0)
[2018-02-12 09:20] LABS: POC GLUCOSE 239 mg/dL (70-99)
[2018-02-12 09:20] LABS: POC GLUCOSE 76 mg/dL (70-99)
[2018-02-12] MEDS: VANCOMYCIN PER PHARMACY MC (09:33)
[2018-02-12 09:47] LABS: POC GLUCOSE 141 mg/dL (70-99)
[2018-02-12 11:00] LABS: POC GLUCOSE 93 mg/dL (70-99)
[2018-02-12] MEDS: VANCOMYCIN 2 GM in IV DEXTROSE 5 %-0.2 % NACL 500 ML IV ×2 (11:29→17:57)
[2018-02-12] MEDS: IV NORMAL SALINE 1000ML BAG 1,000 ML IV ×2 (11:34→17:57)
[2018-02-12 11:56] LABS: POC GLUCOSE 94 mg/dL (70-99)
[2018-02-12 12:38] LABS: POC GLUCOSE 167 mg/dL (70-99)
[2018-02-12 13:33] LABS: POC GLUCOSE 213 mg/dL (70-99)
[2018-02-12 14:58] LABS: POC GLUCOSE 168 mg/dL (70-99)
[2018-02-12 15:31] LABS: ADD MAN DIFF? NO
[2018-02-12 15:37] LABS: BASO % 1 % (0-3); EOS # 0.1 x10^3/uL (0.0-0.7); EOS % 2 % (0-3); HEMATOCRIT 34.2 % (39.0-53.0); HEMOGLOBIN 11.2 g/dL (13.0-17.5); LYMPH # 1.1 x10^3/uL (1.0-4.8); LYMPH % 13 % (24-48); MEAN CORPUSCULAR HEMOGLOBIN 31 pg (25-35); MEAN CORPUSCULAR HGB CONC 33 g/dL (31-37); MEAN CORPUSCULAR VOLUME 95 fL (79-100); MONO # 0.8 x10^3/uL (0.0-1.1); MONO % 9 % (0-9); NEUT # 6.6 x10^3uL (1.8-7.7); NEUT % 76 % (31-73); PLATELET COUNT 167 x10^3/uL (140-400); RED BLOOD COUNT 3.61 x10^6/uL (4.30-5.70); RED CELL DISTRIBUTION WIDTH 12.9 % (11.5-14.5); WHITE BLOOD COUNT 8.7 x10^3/uL (4.0-11.0)
[2018-02-12 15:48] LABS: POC GLUCOSE 121 mg/dL (70-99)
[2018-02-12 16:10] LABS: ANION GAP 10 (6-14); BLOOD UREA NITROGEN 13 mg/dL (8-26); CALCIUM 6.6 mg/dL (8.5-10.1); CARBON DIOXIDE 23 mmol/L (21-32); CHLORIDE 106 mmol/L (98-107); CREATININE 0.6 mg/dL (0.7-1.3); GFR 142.6; GLUCOSE 223 mg/dL (70-99); POTASSIUM 3.5 mmol/L (3.5-5.1); SODIUM 139 mmol/L (136-145)
[2018-02-12 16:35] LABS: POC GLUCOSE 127 mg/dL (70-99)
[2018-02-12 19:50] LABS: POC GLUCOSE 161 mg/dL (70-99)
[2018-02-12 20:22] LABS: POC GLUCOSE 160 mg/dL (70-99)
[2018-02-12 21:26] LABS: POC GLUCOSE 117 mg/dL (70-99)
[2018-02-12 21:26] LABS: POC GLUCOSE 120 mg/dL (70-99)
[2018-02-12 23:36] LABS: POC GLUCOSE 119 mg/dL (70-99)
[2018-02-13 00:41] LABS: POC GLUCOSE 176 mg/dL (70-99)
[2018-02-13] MEDS: oxyCODONE/APAP 10/325 1 TAB TABLET PO ×4 (00:42→23:10)
[2018-02-13 01:48] LABS: POC GLUCOSE 268 mg/dL (70-99)
[2018-02-13 03:14] LABS: POC GLUCOSE 212 mg/dL (70-99)
[2018-02-13 03:14] LABS: POC GLUCOSE 105 mg/dL (70-99)
[2018-02-13] MEDS: VANCOMYCIN 2 GM in IV DEXTROSE 5 %-0.2 % NACL 500 ML IV ×3 (04:01→17:59)
[2018-02-13 04:03] LABS: POC GLUCOSE 168 mg/dL (70-99)
[2018-02-13 05:03] LABS: POC GLUCOSE 144 mg/dL (70-99)
[2018-02-13] MEDS: IV NORMAL SALINE 1000ML BAG 1,000 ML IV ×4 (05:07→17:14)
[2018-02-13] MEDS: PIPERACILLIN/TAZOBACTAM 3.375 GM in IV NORMAL SALINE 100ML 100 ML IV ×4 (05:08→23:09)
[2018-02-13 06:10] LABS: POC GLUCOSE 144 mg/dL (70-99)
[2018-02-13] MEDS: INSULIN ASPART 300 UNITS/3 ML INSULN.PEN SQ ×3 (08:00→17:00)
[2018-02-13] MEDS: LORazepam 1 MG TABLET PO ×2 (08:18→21:00)
[2018-02-13] MEDS: LISINOPRIL 20 MG TABLET PO ×2 (08:18→12:24)
[2018-02-13] MEDS: LACTOBACILLUS RHAMNOSUS GG 1 CAPSULE. PO ×2 (08:18→21:00)
[2018-02-13 08:50] LABS: POC GLUCOSE 96 mg/dL (70-99)
[2018-02-13 08:50] LABS: POC GLUCOSE 82 mg/dL (70-99)
[2018-02-13] MEDS ORDERED: LIDOCAINE 1% PF 30 ML VIAL. (08:57)
[2018-02-13] MEDS ORDERED: fentaNYL PF VIAL 100 MCG/2 ML VIAL IV ×3 (09:15→11:30)
[2018-02-13] MEDS ORDERED: fentaNYL PF VIAL 100 MCG/2 ML VIAL (09:19)
[2018-02-13] MEDS: fentaNYL PF VIAL 100 MCG/2 ML VIAL IV ×6 (09:23→11:23)
[2018-02-13 10:08] LABS: POC GLUCOSE 99 mg/dL (70-99)
[2018-02-13] MEDS ORDERED: PROPOFOL 20 ML IV (10:13)
[2018-02-13] MEDS ORDERED: SEVOFLURANE 16 TO 30 MINUTES. IH (10:13)
[2018-02-13] MEDS ORDERED: MORPHINE SULFATE 10 MG/ML VIAL. (10:23)
[2018-02-13] MEDS ORDERED: PHENYLEPHRINE 10 MG/ML VIAL. (10:28)
[2018-02-13 11:04] LABS: POC GLUCOSE 96 mg/dL (70-99)
[2018-02-13] MEDS: IV RINGERS,LACTATED 1000ML 1,000 ML IV (11:22)
[2018-02-13] MEDS ORDERED: MORPHINE SULFATE 2 MG/ML DISP.SYRIN. IV (11:30)
[2018-02-13] MEDS ORDERED: ONDANSETRON PF 4 MG/2 ML VIAL. IV (11:30)
[2018-02-13] MEDS ORDERED: LIDOCAINE 1% PF 2 ML VIAL. ID (11:30)
[2018-02-13] MEDS ORDERED: PROCHLORPERAZINE 10 MG/2 ML VIAL. IV (11:30)
[2018-02-13] MEDS: MORPHINE SULFATE 4 MG/ML DISP.SYRIN. IV (11:44)
[2018-02-13] MEDS: ACETYLCYSTEINE 20% ORAL SOLN 600 MG/3 ML SYRINGE. PO ×2 (12:00→21:00)
[2018-02-13 12:23] LABS: POC GLUCOSE 99 mg/dL (70-99)
[2018-02-13] MEDS: CLOPIDOGREL BISULFATE 75 MG TABLET PO (12:29)
[2018-02-13] MEDS: ASPIRIN ENTERIC COATED 325 MG TABLET.DR. PO (12:29)
[2018-02-13] MEDS: VANCOMYCIN PER PHARMACY MC (12:44)
[2018-02-13] MEDS: INSULIN REGULAR VIAL 150 UNIT in 0.9 % SODIUM CHLORIDE 150ML 150 ML IV (13:51)
[2018-02-13 14:45] LABS: POC GLUCOSE 182 mg/dL (70-99)
[2018-02-13 15:46] LABS: POC GLUCOSE 156 mg/dL (70-99)
[2018-02-13 16:07] LABS: POC GLUCOSE 145 mg/dL (70-99)
[2018-02-13 17:18] LABS: POC GLUCOSE 179 mg/dL (70-99)
[2018-02-13 18:25] LABS: POC GLUCOSE 203 mg/dL (70-99)
[2018-02-13 19:41] LABS: POC GLUCOSE 218 mg/dL (70-99)
[2018-02-13 20:49] LABS: POC GLUCOSE 165 mg/dL (70-99)
[2018-02-13 22:07] LABS: POC GLUCOSE 97 mg/dL (70-99)
[2018-02-13] MEDS: DEXTROSE 50% 25 GM / 50ML DISP.SYRIN. IV (23:25)
[2018-02-13 23:47] LABS: POC GLUCOSE 99 mg/dL (70-99)
[2018-02-13 23:54] LABS: POC GLUCOSE 68 mg/dL (70-99)
[2018-02-14 00:57] LABS: POC GLUCOSE 111 mg/dL (70-99)
[2018-02-14 01:58] LABS: POC GLUCOSE 101 mg/dL (70-99)
[2018-02-14 03:04] LABS: POC GLUCOSE 85 mg/dL (70-99)
[2018-02-14] MEDS: VANCOMYCIN 2 GM in IV DEXTROSE 5 %-0.2 % NACL 500 ML IV ×2 (03:37→09:54)
[2018-02-14] MEDS: IV NORMAL SALINE 1000ML BAG 1,000 ML IV ×3 (03:38→21:42)
[2018-02-14 04:30] LABS: POC GLUCOSE 114 mg/dL (70-99)
[2018-02-14 05:28] LABS: POC GLUCOSE 137 mg/dL (70-99)
[2018-02-14] MEDS: PIPERACILLIN/TAZOBACTAM 3.375 GM in IV NORMAL SALINE 100ML 100 ML IV ×2 (06:00→12:49)
[2018-02-14] MEDS: PIPERACILLIN/TAZOBACTAM 3.375 GM in IV NORMAL SALINE 50ML 50 ML IV (06:35)
[2018-02-14 06:42] LABS: POC GLUCOSE 140 mg/dL (70-99)
[2018-02-14] MEDS: INSULIN ASPART 300 UNITS/3 ML INSULN.PEN SQ ×7 (08:00→21:45)
[2018-02-14 08:28] LABS: POC GLUCOSE 164 mg/dL (70-99)
[2018-02-14] MEDS: LORazepam 1 MG TABLET PO ×2 (09:00→21:17)
[2018-02-14] MEDS: ACETYLCYSTEINE 20% ORAL SOLN 600 MG/3 ML SYRINGE. PO ×2 (09:00→20:43)
[2018-02-14 09:38] LABS: POC GLUCOSE 168 mg/dL (70-99)
[2018-02-14] MEDS: LACTOBACILLUS RHAMNOSUS GG 1 CAPSULE. PO ×2 (09:51→21:17)
[2018-02-14] MEDS: CLOPIDOGREL BISULFATE 75 MG TABLET PO (09:51)
[2018-02-14] MEDS: ASPIRIN ENTERIC COATED 325 MG TABLET.DR. PO (09:51)
[2018-02-14] MEDS: oxyCODONE/APAP 10/325 1 TAB TABLET PO ×2 (09:52→16:24)
[2018-02-14] MEDS: LISINOPRIL 20 MG TABLET PO (09:53)
[2018-02-14 10:47] LABS: ANION GAP 9 (6-14); BLOOD UREA NITROGEN 11 mg/dL (8-26); CALCIUM 8.1 mg/dL (8.5-10.1); CARBON DIOXIDE 27 mmol/L (21-32); CHLORIDE 107 mmol/L (98-107); GFR 79.1; GLUCOSE 246 mg/dL (70-99); SODIUM 143 mmol/L (136-145)
[2018-02-14 10:51] LABS: POC GLUCOSE 228 mg/dL (70-99)
[2018-02-14] MEDS: INSULIN DETEMIR 300 UNITS/3 ML INSULN.PEN. SQ (11:00)
[2018-02-14] MEDS: VANCOMYCIN PER PHARMACY MC (12:02)
[2018-02-14 12:03] LABS: POC GLUCOSE 245 mg/dL (70-99)
[2018-02-14 16:37] LABS: POC GLUCOSE 170 mg/dL (70-99)
[2018-02-14 21:21] LABS: POC GLUCOSE 328 mg/dL (70-99)
[2018-02-15] MEDS: PIPERACILLIN/TAZOBACTAM 3.375 GM in IV NORMAL SALINE 50ML 50 ML IV ×3 (00:01→13:41)
[2018-02-15] MEDS: oxyCODONE/APAP 10/325 1 TAB TABLET PO ×3 (00:06→22:17)
[2018-02-15] MEDS: IV NORMAL SALINE 1000ML BAG 1,000 ML IV (06:25)
[2018-02-15] MEDS ORDERED: INSULIN LISPRO 30 UNIT SQ (07:30)
[2018-02-15] MEDS: INSULIN ASPART 300 UNITS/3 ML INSULN.PEN SQ ×7 (08:00→23:00)
[2018-02-15] MEDS: LACTOBACILLUS RHAMNOSUS GG 1 CAPSULE. PO ×2 (08:31→22:10)
[2018-02-15] MEDS: ASPIRIN ENTERIC COATED 325 MG TABLET.DR. PO (08:32)
[2018-02-15] MEDS: CLOPIDOGREL BISULFATE 75 MG TABLET PO (08:33)
[2018-02-15] MEDS: LORazepam 1 MG TABLET PO ×2 (08:33→22:10)
[2018-02-15] MEDS: LISINOPRIL 20 MG TABLET PO (08:33)
[2018-02-15 08:43] LABS: POC GLUCOSE 203 mg/dL (70-99)
[2018-02-15] MEDS: ACETYLCYSTEINE 20% ORAL SOLN 600 MG/3 ML SYRINGE. PO ×2 (09:00→21:00)
[2018-02-15 11:56] LABS: POC GLUCOSE 121 mg/dL (70-99)
[2018-02-15] MEDS ORDERED: cefTRIAXone SODIUM 2 GM in IV DEXTROSE 5% 100 ML IV (16:30)
[2018-02-15] MEDS: ALTEPLASE 2 MG VIAL INT CAT ×2 (16:39→16:40)
[2018-02-15 17:13] LABS: POC GLUCOSE 184 mg/dL (70-99)
[2018-02-15] MEDS: cefTRIAXone IV Push 2 GM VIAL. IVP (18:29)
[2018-02-15] MEDS: INSULIN DETEMIR 300 UNITS/3 ML INSULN.PEN. SQ (18:31)
[2018-02-15 22:34] LABS: POC GLUCOSE 329 mg/dL (70-99)
[2018-02-16 08:31] LABS: POC GLUCOSE 214 mg/dL (70-99)
[2018-02-16] MEDS: ACETYLCYSTEINE 20% ORAL SOLN 600 MG/3 ML SYRINGE. PO ×2 (09:00→21:00)
[2018-02-16] MEDS: LORazepam 1 MG TABLET PO ×2 (09:09→21:00)
[2018-02-16] MEDS: oxyCODONE/APAP 10/325 1 TAB TABLET PO ×2 (09:12→17:21)
[2018-02-16] MEDS: INSULIN DETEMIR 300 UNITS/3 ML INSULN.PEN. SQ (09:20)
[2018-02-16] MEDS: INSULIN ASPART 300 UNITS/3 ML INSULN.PEN SQ ×6 (09:22→17:52)
[2018-02-16 11:34] LABS: POC GLUCOSE 138 mg/dL (70-99)
[2018-02-16] MEDS ORDERED: LIDOCAINE WITH 8.4% SOD BICARB 3 ML DISP.SYRIN. (11:55)
[2018-02-16] MEDS ORDERED: IODIXANOL 320 MG/ML 100 ML VIAL. ×2 (11:55→13:30)
[2018-02-16] MEDS ORDERED: fentaNYL PF VIAL 100 MCG/2 ML VIAL (12:06)
[2018-02-16] MEDS ORDERED: MIDAZOLAM HCL/PF 5 MG/5 ML VIAL. (12:06)
[2018-02-16] MEDS ORDERED: HEPARIN for IV BOLUS 10,000 UNIT/10 ML VIAL. (12:06)
[2018-02-16 12:11] LABS: INR 1.1 (0.8-1.1); PARTIAL THROMBOPLASTIN TIME 33 SEC (24-38); PROTHROMBIN TIME PATIENT 13.7 SEC (11.7-14.0)
[2018-02-16] MEDS ORDERED: diphenhydrAMINE 50 MG/ML VIAL (13:33)
[2018-02-16] MEDS: LIDOCAINE WITH 8.4% SOD BICARB 3 ML DISP.SYRIN. IJ (14:11)
[2018-02-16] MEDS: IODIXANOL 320 MG/ML 100 ML VIAL. IART (14:11)
[2018-02-16] MEDS: diphenhydrAMINE 50 MG/ML VIAL IVP (14:12)
[2018-02-16] MEDS: fentaNYL PF VIAL 100 MCG/2 ML VIAL IV (14:12)
[2018-02-16] MEDS: MIDAZOLAM HCL/PF 5 MG/5 ML VIAL. IV (14:12)
[2018-02-16] MEDS: HEPARIN for IV BOLUS 10,000 UNIT/10 ML VIAL. IV (14:19)
[2018-02-16 17:05] LABS: POC GLUCOSE 60 mg/dL (70-99)
[2018-02-16] MEDS: LACTOBACILLUS RHAMNOSUS GG 1 CAPSULE. PO ×2 (17:21→21:00)
[2018-02-16] MEDS: CLOPIDOGREL BISULFATE 75 MG TABLET PO (17:21)
[2018-02-16] MEDS: ASPIRIN ENTERIC COATED 325 MG TABLET.DR. PO (17:21)
[2018-02-16] MEDS: LISINOPRIL 20 MG TABLET PO (17:27)
[2018-02-16] MEDS: cefTRIAXone IV Push 2 GM VIAL. IVP (17:28)
[2018-02-16 17:33] LABS: POC GLUCOSE 122 mg/dL (70-99)
[2018-02-16] MEDS: amLODIPine BESYLATE 5 MG TABLET PO (18:40)
[2018-02-17] MEDS: oxyCODONE/APAP 10/325 1 TAB TABLET PO ×2 (02:15→09:00)
[2018-02-17 06:15] LABS: ADD MAN DIFF? NO
[2018-02-17 06:36] LABS: ANION GAP 9 (6-14); BLOOD UREA NITROGEN 11 mg/dL (8-26); CALCIUM 8.3 mg/dL (8.5-10.1); CARBON DIOXIDE 28 mmol/L (21-32); CHLORIDE 105 mmol/L (98-107); CREATININE 1.2 mg/dL (0.7-1.3); GFR 64.1; GLUCOSE 273 mg/dL (70-99); POTASSIUM 4.1 mmol/L (3.5-5.1); SODIUM 142 mmol/L (136-145)
[2018-02-17 07:10] LABS: BASO # 0.1 x10^3/uL (0.0-0.2); BASO % 1 % (0-3); EOS # 0.1 x10^3/uL (0.0-0.7); EOS % 1 % (0-3); HEMATOCRIT 33.3 % (39.0-53.0); HEMOGLOBIN 11.2 g/dL (13.0-17.5); LYMPH # 1.6 x10^3/uL (1.0-4.8); LYMPH % 16 % (24-48); MEAN CORPUSCULAR HEMOGLOBIN 31 pg (25-35); MEAN CORPUSCULAR HGB CONC 34 g/dL (31-37); MEAN CORPUSCULAR VOLUME 92 fL (79-100); MONO % 10 % (0-9); NEUT # 7.4 x10^3uL (1.8-7.7); NEUT % 73 % (31-73); PLATELET COUNT 248 x10^3/uL (140-400); RED BLOOD COUNT 3.63 x10^6/uL (4.30-5.70); RED CELL DISTRIBUTION WIDTH 12.6 % (11.5-14.5); WHITE BLOOD COUNT 10.1 x10^3/uL (4.0-11.0)
[2018-02-17 07:57] LABS: POC GLUCOSE 241 mg/dL (70-99)
[2018-02-17] MEDS: LACTOBACILLUS RHAMNOSUS GG 1 CAPSULE. PO (08:59)
[2018-02-17] MEDS: ASPIRIN ENTERIC COATED 325 MG TABLET.DR. PO (08:59)
[2018-02-17] MEDS: LORazepam 1 MG TABLET PO (09:00)
[2018-02-17] MEDS: CLOPIDOGREL BISULFATE 75 MG TABLET PO (09:00)
[2018-02-17] MEDS: LISINOPRIL 20 MG TABLET PO (09:00)
[2018-02-17] MEDS: amLODIPine BESYLATE 5 MG TABLET PO (09:00)
[2018-02-17] MEDS: ACETYLCYSTEINE 20% ORAL SOLN 600 MG/3 ML SYRINGE. PO (09:05)
[2018-02-17] MEDS: INSULIN DETEMIR 300 UNITS/3 ML INSULN.PEN. SQ (09:15)
[2018-02-17] MEDS: INSULIN ASPART 300 UNITS/3 ML INSULN.PEN SQ ×6 (09:16→17:00)
[2018-02-17 11:24] LABS: POC GLUCOSE 307 mg/dL (70-99)
[2018-02-17 17:11] LABS: POC GLUCOSE 170 mg/dL (70-99)
[2018-02-17] MEDS: cefTRIAXone IV Push 2 GM VIAL. IVP (18:04)
== END 2018-02-17 20:00 | disposition left against medical advice (07) | DRG 854 ==
LOC: 4 NORTH 16:44
PROVIDERS: Family Medicine
PROC: 0Y6Q0Z0 Detachment at Left 1st Toe, Complete, Open Approach (ICD-10-PCS; principal; 2018-02-11 07:22)
PROC: 0Y6U0Z0 Detachment at Left 3rd Toe, Complete, Open Approach (ICD-10-PCS; 2018-02-11 07:22)
PROC: 0Y6S0Z0 Detachment at Left 2nd Toe, Complete, Open Approach (ICD-10-PCS; 2018-02-11 07:22)
PROC: 0QBR0ZX Excision of Left Toe Phalanx, Open Approach, Diagnostic (ICD-10-PCS; 2018-02-11 07:22)
PROC: 047L3ZZ Dilation of Left Femoral Artery, Percutaneous Approach (ICD-10-PCS; 2018-02-11 07:22)
PROC: 047U3ZZ Dilation of Left Peroneal Artery, Percutaneous Approach (ICD-10-PCS; 2018-02-11 07:22)
PROC: 047S3ZZ Dilation of Left Posterior Tibial Artery, Percutaneous Approach (ICD-10-PCS; 2018-02-11 07:22)
PROC: 02HV33Z Insertion of Infusion Device into Superior Vena Cava, Percutaneous Approach (ICD-10-PCS; 2018-02-11 07:22)
DX: A41.9 Sepsis, unspecified organism (principal); L03.116 Cellulitis of left lower limb; E11.319 Type 2 diabetes mellitus with unspecified diabetic retinopathy without macular edema; E11.40 Type 2 diabetes mellitus with diabetic neuropathy, unspecified; E11.52 Type 2 diabetes mellitus with diabetic peripheral angiopathy with gangrene; M86.8X7 Other osteomyelitis, ankle and foot; E11.621 Type 2 diabetes mellitus with foot ulcer; E11.69 Type 2 diabetes mellitus with other specified complication; Z53.21 Procedure and treatment not carried out due to patient leaving prior to being seen by health care provider; E11.622 Type 2 diabetes mellitus with other skin ulcer; E11.628 Type 2 diabetes mellitus with other skin complications; E11.65 Type 2 diabetes mellitus with hyperglycemia; E78.5 Hyperlipidemia, unspecified; F17.200 Nicotine dependence, unspecified, uncomplicated; F98.8 Other specified behavioral and emotional disorders with onset usually occurring in childhood and adolescence; G89.29 Other chronic pain; H54.61 Unqualified visual loss, right eye, normal vision left eye; I10 Essential (primary) hypertension; I70.202 Unspecified atherosclerosis of native arteries of extremities, left leg; G47.9 Sleep disorder, unspecified; L97.524 Non-pressure chronic ulcer of other part of left foot with necrosis of bone; M54.16 Radiculopathy, lumbar region; Z79.4 Long term (current) use of insulin; Z82.49 Family history of ischemic heart disease and other diseases of the circulatory system; Z83.3 Family history of diabetes mellitus; Z89.411 Acquired absence of right great toe; Z89.429 Acquired absence of other toe(s), unspecified side; Z91.19 Patient's noncompliance with other medical treatment and regimen; Z88.8 Allergy status to other drugs, medicaments and biological substances; Z94.7 Corneal transplant status
CPT/HCPCS: 36415; 37224; 37228; 73630; 75710; 76937; 80048; 80202; 81001; 82565; 82947; 82962; 83036; 83605; 85025; 85610; 85651; 85730; 87040; 87071; 87075; 87186; 87205; 88305; 88311; 93925; 99152; 99153; C1725; C1760; C1769; C1892; C1894; G0269; J0696; J1200; J1644; J1815; J2250; J2270; J2405; J2543; J2704; J2997; J3010; J3370; J3490; J7030; J7042; S0028

== ENCOUNTER → 2018-02-09 | Outpatient (CLI) | payer BC | END | disposition home or self-care (01) | LOC: PMGWOUND 12:43 | DX: E11.621 Type 2 diabetes mellitus with foot ulcer (principal); L97.522 Non-pressure chronic ulcer of other part of left foot with fat layer exposed; F17.210 Nicotine dependence, cigarettes, uncomplicated; E78.5 Hyperlipidemia, unspecified; E11.69 Type 2 diabetes mellitus with other specified complication; M86.671 Other chronic osteomyelitis, right ankle and foot; E11.42 Type 2 diabetes mellitus with diabetic polyneuropathy; E11.52 Type 2 diabetes mellitus with diabetic peripheral angiopathy with gangrene; I96 Gangrene, not elsewhere classified; H54.413A Blindness right eye category 3, normal vision left eye; Z79.01 Long term (current) use of anticoagulants; Z89.411 Acquired absence of right great toe; Z89.022 Acquired absence of left finger(s) | CPT/HCPCS: 99214 ==

== ENCOUNTER → 2018-03-25 | Outpatient (CLI) | payer BC ==
[2018-03-26 08:15] LABS: POC GLUCOSE 240 mg/dL (70-99)
== END | disposition home or self-care (01) ==
LOC: PMGWOUND 07:49
DX: E11.621 Type 2 diabetes mellitus with foot ulcer (principal); L97.524 Non-pressure chronic ulcer of other part of left foot with necrosis of bone; E11.69 Type 2 diabetes mellitus with other specified complication; M86.671 Other chronic osteomyelitis, right ankle and foot; E11.42 Type 2 diabetes mellitus with diabetic polyneuropathy; E11.52 Type 2 diabetes mellitus with diabetic peripheral angiopathy with gangrene; I96 Gangrene, not elsewhere classified; E11.319 Type 2 diabetes mellitus with unspecified diabetic retinopathy without macular edema; E11.65 Type 2 diabetes mellitus with hyperglycemia; F41.9 Anxiety disorder, unspecified; I10 Essential (primary) hypertension; H54.413A Blindness right eye category 3, normal vision left eye; G89.29 Other chronic pain; E78.5 Hyperlipidemia, unspecified; G47.9 Sleep disorder, unspecified; F17.210 Nicotine dependence, cigarettes, uncomplicated; Z79.01 Long term (current) use of anticoagulants; Z89.022 Acquired absence of left finger(s); Z89.431 Acquired absence of right foot; Z79.4 Long term (current) use of insulin
CPT/HCPCS: 82962; 99214

== ENCOUNTER → 2018-04-13 | Outpatient (CLI) | payer BC | END | disposition home or self-care (01) | LOC: PMGWOUND 14:19 | DX: E11.621 Type 2 diabetes mellitus with foot ulcer (principal); L97.524 Non-pressure chronic ulcer of other part of left foot with necrosis of bone; L97.414 Non-pressure chronic ulcer of right heel and midfoot with necrosis of bone; L84 Corns and callosities; E11.69 Type 2 diabetes mellitus with other specified complication; M86.671 Other chronic osteomyelitis, right ankle and foot; G89.29 Other chronic pain; E11.42 Type 2 diabetes mellitus with diabetic polyneuropathy; E11.65 Type 2 diabetes mellitus with hyperglycemia; E11.52 Type 2 diabetes mellitus with diabetic peripheral angiopathy with gangrene; I96 Gangrene, not elsewhere classified; E78.5 Hyperlipidemia, unspecified; G47.9 Sleep disorder, unspecified; F17.200 Nicotine dependence, unspecified, uncomplicated; Z79.01 Long term (current) use of anticoagulants; Z89.431 Acquired absence of right foot; Z89.022 Acquired absence of left finger(s); Z79.4 Long term (current) use of insulin | CPT/HCPCS: 93923; 97597 ==

== ENCOUNTER → 2018-04-16 | Outpatient (CLI) | payer BC | END | disposition home or self-care (01) | LOC: PMGWOUND 08:33 | DX: T87.89 Other complications of amputation stump (principal); E11.621 Type 2 diabetes mellitus with foot ulcer; L97.524 Non-pressure chronic ulcer of other part of left foot with necrosis of bone; L97.414 Non-pressure chronic ulcer of right heel and midfoot with necrosis of bone; E78.5 Hyperlipidemia, unspecified; E11.69 Type 2 diabetes mellitus with other specified complication; M86.671 Other chronic osteomyelitis, right ankle and foot; G89.29 Other chronic pain; E11.42 Type 2 diabetes mellitus with diabetic polyneuropathy; E11.52 Type 2 diabetes mellitus with diabetic peripheral angiopathy with gangrene; I96 Gangrene, not elsewhere classified; I10 Essential (primary) hypertension; F41.9 Anxiety disorder, unspecified; E11.319 Type 2 diabetes mellitus with unspecified diabetic retinopathy without macular edema; F17.210 Nicotine dependence, cigarettes, uncomplicated; Z89.022 Acquired absence of left finger(s); Z79.4 Long term (current) use of insulin; Z79.01 Long term (current) use of anticoagulants; Y83.5 Amputation of limb(s) as the cause of abnormal reaction of the patient, or of later complication, without mention of misadventure at the time of the procedure | CPT/HCPCS: 97597 ==

== ENCOUNTER → 2018-04-21 | Outpatient (CLI) | payer BC | END | disposition home or self-care (01) | LOC: PMGWOUND 08:50 | DX: T87.89 Other complications of amputation stump (principal); E11.621 Type 2 diabetes mellitus with foot ulcer; L97.524 Non-pressure chronic ulcer of other part of left foot with necrosis of bone; L97.414 Non-pressure chronic ulcer of right heel and midfoot with necrosis of bone; E78.5 Hyperlipidemia, unspecified; E11.69 Type 2 diabetes mellitus with other specified complication; M86.671 Other chronic osteomyelitis, right ankle and foot; L84 Corns and callosities; G89.29 Other chronic pain; E11.42 Type 2 diabetes mellitus with diabetic polyneuropathy; E11.52 Type 2 diabetes mellitus with diabetic peripheral angiopathy with gangrene; I96 Gangrene, not elsewhere classified; I10 Essential (primary) hypertension; F41.9 Anxiety disorder, unspecified; E11.319 Type 2 diabetes mellitus with unspecified diabetic retinopathy without macular edema; F17.210 Nicotine dependence, cigarettes, uncomplicated; Z89.022 Acquired absence of left finger(s); Z79.4 Long term (current) use of insulin; Z79.01 Long term (current) use of anticoagulants; Y83.5 Amputation of limb(s) as the cause of abnormal reaction of the patient, or of later complication, without mention of misadventure at the time of the procedure | CPT/HCPCS: 97597 ==

== ENCOUNTER → 2018-04-23 | Outpatient (CLI) | payer BC | END | disposition home or self-care (01) | LOC: PMGWOUND 08:00 | DX: T87.89 Other complications of amputation stump (principal); E11.621 Type 2 diabetes mellitus with foot ulcer; L97.524 Non-pressure chronic ulcer of other part of left foot with necrosis of bone; L97.414 Non-pressure chronic ulcer of right heel and midfoot with necrosis of bone; E78.5 Hyperlipidemia, unspecified; E11.69 Type 2 diabetes mellitus with other specified complication; M86.671 Other chronic osteomyelitis, right ankle and foot; L84 Corns and callosities; G89.29 Other chronic pain; E11.42 Type 2 diabetes mellitus with diabetic polyneuropathy; E11.52 Type 2 diabetes mellitus with diabetic peripheral angiopathy with gangrene; I96 Gangrene, not elsewhere classified; I10 Essential (primary) hypertension; F41.9 Anxiety disorder, unspecified; E11.319 Type 2 diabetes mellitus with unspecified diabetic retinopathy without macular edema; F17.210 Nicotine dependence, cigarettes, uncomplicated; Z89.022 Acquired absence of left finger(s); Z79.4 Long term (current) use of insulin; Z79.01 Long term (current) use of anticoagulants; Y83.5 Amputation of limb(s) as the cause of abnormal reaction of the patient, or of later complication, without mention of misadventure at the time of the procedure | CPT/HCPCS: 97597 ==

== ENCOUNTER → 2018-04-28 | Outpatient (CLI) | payer BC | END | disposition home or self-care (01) | LOC: PMGWOUND 07:05 | DX: T87.89 Other complications of amputation stump (principal); E11.621 Type 2 diabetes mellitus with foot ulcer; L97.524 Non-pressure chronic ulcer of other part of left foot with necrosis of bone; L97.414 Non-pressure chronic ulcer of right heel and midfoot with necrosis of bone; E78.5 Hyperlipidemia, unspecified; E11.69 Type 2 diabetes mellitus with other specified complication; M86.671 Other chronic osteomyelitis, right ankle and foot; L84 Corns and callosities; G89.29 Other chronic pain; E11.42 Type 2 diabetes mellitus with diabetic polyneuropathy; E11.52 Type 2 diabetes mellitus with diabetic peripheral angiopathy with gangrene; I96 Gangrene, not elsewhere classified; I10 Essential (primary) hypertension; F41.9 Anxiety disorder, unspecified; E11.319 Type 2 diabetes mellitus with unspecified diabetic retinopathy without macular edema; F17.210 Nicotine dependence, cigarettes, uncomplicated; Z89.022 Acquired absence of left finger(s); Z79.4 Long term (current) use of insulin; Z79.01 Long term (current) use of anticoagulants; Y83.5 Amputation of limb(s) as the cause of abnormal reaction of the patient, or of later complication, without mention of misadventure at the time of the procedure | CPT/HCPCS: 97597 ==

== ENCOUNTER → 2018-04-30 | Outpatient (CLI) | payer BC | END | disposition home or self-care (01) | LOC: PMGWOUND 08:07 | DX: T87.89 Other complications of amputation stump (principal); E11.621 Type 2 diabetes mellitus with foot ulcer; L97.524 Non-pressure chronic ulcer of other part of left foot with necrosis of bone; L97.414 Non-pressure chronic ulcer of right heel and midfoot with necrosis of bone; F41.9 Anxiety disorder, unspecified; I10 Essential (primary) hypertension; E78.5 Hyperlipidemia, unspecified; E11.52 Type 2 diabetes mellitus with diabetic peripheral angiopathy with gangrene; I96 Gangrene, not elsewhere classified; E11.69 Type 2 diabetes mellitus with other specified complication; M86.671 Other chronic osteomyelitis, right ankle and foot; E11.42 Type 2 diabetes mellitus with diabetic polyneuropathy; E11.319 Type 2 diabetes mellitus with unspecified diabetic retinopathy without macular edema; M86.8X7 Other osteomyelitis, ankle and foot; F17.210 Nicotine dependence, cigarettes, uncomplicated; H54.413A Blindness right eye category 3, normal vision left eye; Z89.022 Acquired absence of left finger(s); Z79.01 Long term (current) use of anticoagulants; Z79.4 Long term (current) use of insulin; Y83.5 Amputation of limb(s) as the cause of abnormal reaction of the patient, or of later complication, without mention of misadventure at the time of the procedure | CPT/HCPCS: 87071; 87075; 87205; 97597 ==

== ENCOUNTER → 2018-05-04 | Outpatient (CLI) | payer BC | END | disposition home or self-care (01) | LOC: PMGWOUND 08:44 | DX: T87.89 Other complications of amputation stump (principal); E11.621 Type 2 diabetes mellitus with foot ulcer; L97.524 Non-pressure chronic ulcer of other part of left foot with necrosis of bone; L97.414 Non-pressure chronic ulcer of right heel and midfoot with necrosis of bone; F41.9 Anxiety disorder, unspecified; H54.413A Blindness right eye category 3, normal vision left eye; E78.5 Hyperlipidemia, unspecified; E11.52 Type 2 diabetes mellitus with diabetic peripheral angiopathy with gangrene; I96 Gangrene, not elsewhere classified; E11.69 Type 2 diabetes mellitus with other specified complication; M86.671 Other chronic osteomyelitis, right ankle and foot; E11.42 Type 2 diabetes mellitus with diabetic polyneuropathy; E11.319 Type 2 diabetes mellitus with unspecified diabetic retinopathy without macular edema; G89.29 Other chronic pain; F17.210 Nicotine dependence, cigarettes, uncomplicated; Z79.4 Long term (current) use of insulin; Z79.01 Long term (current) use of anticoagulants; Z89.022 Acquired absence of left finger(s); Z89.431 Acquired absence of right foot; Y83.5 Amputation of limb(s) as the cause of abnormal reaction of the patient, or of later complication, without mention of misadventure at the time of the procedure | CPT/HCPCS: 97597; 97598 ==

== ENCOUNTER → 2018-05-12 | Outpatient (CLI) | payer BC | END | disposition home or self-care (01) | LOC: PMGWOUND 12:11 | DX: T87.89 Other complications of amputation stump (principal); E11.621 Type 2 diabetes mellitus with foot ulcer; L97.524 Non-pressure chronic ulcer of other part of left foot with necrosis of bone; L97.414 Non-pressure chronic ulcer of right heel and midfoot with necrosis of bone; F41.9 Anxiety disorder, unspecified; H54.413A Blindness right eye category 3, normal vision left eye; E78.5 Hyperlipidemia, unspecified; E11.52 Type 2 diabetes mellitus with diabetic peripheral angiopathy with gangrene; I96 Gangrene, not elsewhere classified; E11.69 Type 2 diabetes mellitus with other specified complication; M86.671 Other chronic osteomyelitis, right ankle and foot; E11.42 Type 2 diabetes mellitus with diabetic polyneuropathy; E11.319 Type 2 diabetes mellitus with unspecified diabetic retinopathy without macular edema; G89.29 Other chronic pain; F17.210 Nicotine dependence, cigarettes, uncomplicated; Z79.4 Long term (current) use of insulin; Z79.01 Long term (current) use of anticoagulants; Z89.022 Acquired absence of left finger(s); Z89.431 Acquired absence of right foot; Y83.5 Amputation of limb(s) as the cause of abnormal reaction of the patient, or of later complication, without mention of misadventure at the time of the procedure | CPT/HCPCS: 97597 ==

== ENCOUNTER → 2018-05-19 | Outpatient (CLI) | payer BC | END | disposition home or self-care (01) | LOC: PMGWOUND 11:53 | DX: T87.89 Other complications of amputation stump (principal); E11.621 Type 2 diabetes mellitus with foot ulcer; L97.524 Non-pressure chronic ulcer of other part of left foot with necrosis of bone; F41.9 Anxiety disorder, unspecified; H54.413A Blindness right eye category 3, normal vision left eye; E78.5 Hyperlipidemia, unspecified; E11.52 Type 2 diabetes mellitus with diabetic peripheral angiopathy with gangrene; I96 Gangrene, not elsewhere classified; E11.69 Type 2 diabetes mellitus with other specified complication; M86.671 Other chronic osteomyelitis, right ankle and foot; E11.42 Type 2 diabetes mellitus with diabetic polyneuropathy; E11.319 Type 2 diabetes mellitus with unspecified diabetic retinopathy without macular edema; G89.29 Other chronic pain; F17.210 Nicotine dependence, cigarettes, uncomplicated; Z79.4 Long term (current) use of insulin; Z79.01 Long term (current) use of anticoagulants; Z89.022 Acquired absence of left finger(s); Z89.431 Acquired absence of right foot; Y83.5 Amputation of limb(s) as the cause of abnormal reaction of the patient, or of later complication, without mention of misadventure at the time of the procedure | CPT/HCPCS: 11042 ==

== ENCOUNTER → 2018-05-29 | Outpatient (CLI) | payer BC | END | disposition home or self-care (01) | LOC: PMGWOUND 11:24 | DX: T87.89 Other complications of amputation stump (principal); E11.621 Type 2 diabetes mellitus with foot ulcer; L97.524 Non-pressure chronic ulcer of other part of left foot with necrosis of bone; F41.9 Anxiety disorder, unspecified; H54.413A Blindness right eye category 3, normal vision left eye; E78.5 Hyperlipidemia, unspecified; E11.52 Type 2 diabetes mellitus with diabetic peripheral angiopathy with gangrene; I96 Gangrene, not elsewhere classified; E11.69 Type 2 diabetes mellitus with other specified complication; M86.671 Other chronic osteomyelitis, right ankle and foot; E11.42 Type 2 diabetes mellitus with diabetic polyneuropathy; E11.319 Type 2 diabetes mellitus with unspecified diabetic retinopathy without macular edema; G89.29 Other chronic pain; F17.210 Nicotine dependence, cigarettes, uncomplicated; Z79.4 Long term (current) use of insulin; Z79.01 Long term (current) use of anticoagulants; Z89.022 Acquired absence of left finger(s); Z89.431 Acquired absence of right foot; Y83.5 Amputation of limb(s) as the cause of abnormal reaction of the patient, or of later complication, without mention of misadventure at the time of the procedure | CPT/HCPCS: 97597 ==

== ENCOUNTER → 2018-06-09 | Outpatient (CLI) | payer BC | END | disposition home or self-care (01) | LOC: PMGWOUND 09:27 | DX: T87.89 Other complications of amputation stump (principal); E11.621 Type 2 diabetes mellitus with foot ulcer; L97.524 Non-pressure chronic ulcer of other part of left foot with necrosis of bone; F41.9 Anxiety disorder, unspecified; E11.52 Type 2 diabetes mellitus with diabetic peripheral angiopathy with gangrene; I96 Gangrene, not elsewhere classified; E78.5 Hyperlipidemia, unspecified; E11.69 Type 2 diabetes mellitus with other specified complication; M86.671 Other chronic osteomyelitis, right ankle and foot; G89.29 Other chronic pain; E11.42 Type 2 diabetes mellitus with diabetic polyneuropathy; E11.319 Type 2 diabetes mellitus with unspecified diabetic retinopathy without macular edema; F17.210 Nicotine dependence, cigarettes, uncomplicated; Z89.431 Acquired absence of right foot; Z89.022 Acquired absence of left finger(s); Z79.4 Long term (current) use of insulin; Y83.5 Amputation of limb(s) as the cause of abnormal reaction of the patient, or of later complication, without mention of misadventure at the time of the procedure | CPT/HCPCS: 11042 ==

== ENCOUNTER → 2018-06-18 | Outpatient (CLI) | payer BC | END | disposition home or self-care (01) | LOC: PMGWOUND 08:46 | DX: T87.89 Other complications of amputation stump (principal); E11.621 Type 2 diabetes mellitus with foot ulcer; L97.524 Non-pressure chronic ulcer of other part of left foot with necrosis of bone; F41.9 Anxiety disorder, unspecified; E11.52 Type 2 diabetes mellitus with diabetic peripheral angiopathy with gangrene; I96 Gangrene, not elsewhere classified; E78.5 Hyperlipidemia, unspecified; E11.69 Type 2 diabetes mellitus with other specified complication; M86.671 Other chronic osteomyelitis, right ankle and foot; G89.29 Other chronic pain; E11.42 Type 2 diabetes mellitus with diabetic polyneuropathy; E11.319 Type 2 diabetes mellitus with unspecified diabetic retinopathy without macular edema; F17.210 Nicotine dependence, cigarettes, uncomplicated; Z89.431 Acquired absence of right foot; Z89.022 Acquired absence of left finger(s); Z79.4 Long term (current) use of insulin; Y83.5 Amputation of limb(s) as the cause of abnormal reaction of the patient, or of later complication, without mention of misadventure at the time of the procedure | CPT/HCPCS: 97597 ==

== ENCOUNTER → 2018-06-25 | Outpatient (CLI) | payer BC | END | disposition home or self-care (01) | LOC: PMGWOUND 08:29 | DX: S51.801A Unspecified open wound of right forearm, initial encounter (principal); F41.9 Anxiety disorder, unspecified; E78.5 Hyperlipidemia, unspecified; E11.69 Type 2 diabetes mellitus with other specified complication; M86.671 Other chronic osteomyelitis, right ankle and foot; G89.29 Other chronic pain; E11.42 Type 2 diabetes mellitus with diabetic polyneuropathy; E11.52 Type 2 diabetes mellitus with diabetic peripheral angiopathy with gangrene; I96 Gangrene, not elsewhere classified; E11.319 Type 2 diabetes mellitus with unspecified diabetic retinopathy without macular edema; H54.413A Blindness right eye category 3, normal vision left eye; F17.210 Nicotine dependence, cigarettes, uncomplicated; Z79.4 Long term (current) use of insulin; Z89.022 Acquired absence of left finger(s); Z89.431 Acquired absence of right foot; Z79.01 Long term (current) use of anticoagulants; X58.XXXA Exposure to other specified factors, initial encounter; Y92.89 Other specified places as the place of occurrence of the external cause; Y99.8 Other external cause status; Y93.89 Activity, other specified | CPT/HCPCS: 99214 ==

== ENCOUNTER → 2018-07-01 | Outpatient (CLI) | payer BC ==
[2018-04-09 07:58] VITALS: BP 151/78
[~2018-07-01] MED LIST changes: +DIFL5DRO2 OP; +INSU100I30 SQ; +LISI-130 PO; +LISI10TA2 PO; -LISI40TA PO; +LORA-434 PO; +OXYC-411 PO; -OXYC1TAB9 PO; +PIOG15TA42 PO
== END | disposition home or self-care (01) ==
LOC: PMGWOUND 08:41
PROVIDERS: ATTEND Preventive Medicine Undersea and Hyperbaric Medicine
DX: T87.89 Other complications of amputation stump (principal); E11.621 Type 2 diabetes mellitus with foot ulcer; L97.524 Non-pressure chronic ulcer of other part of left foot with necrosis of bone; S51.801D Unspecified open wound of right forearm, subsequent encounter; F41.9 Anxiety disorder, unspecified; E78.5 Hyperlipidemia, unspecified; E11.69 Type 2 diabetes mellitus with other specified complication; M86.671 Other chronic osteomyelitis, right ankle and foot; G89.29 Other chronic pain; E11.42 Type 2 diabetes mellitus with diabetic polyneuropathy; E11.52 Type 2 diabetes mellitus with diabetic peripheral angiopathy with gangrene; I96 Gangrene, not elsewhere classified; E11.319 Type 2 diabetes mellitus with unspecified diabetic retinopathy without macular edema; H54.413A Blindness right eye category 3, normal vision left eye; F17.210 Nicotine dependence, cigarettes, uncomplicated; Z79.4 Long term (current) use of insulin; Z89.022 Acquired absence of left finger(s); Z89.431 Acquired absence of right foot; Z79.01 Long term (current) use of anticoagulants; X58.XXXD Exposure to other specified factors, subsequent encounter; Y83.5 Amputation of limb(s) as the cause of abnormal reaction of the patient, or of later complication, without mention of misadventure at the time of the procedure
CPT/HCPCS: 97597

== ENCOUNTER → 2018-07-09 | Outpatient (CLI) | payer BC ==
[2018-04-09 07:58] VITALS: BP 151/78
== END ==
LOC: PMGWOUND 08:41
PROVIDERS: ATTEND Emergency Medicine Undersea and Hyperbaric Medicine
DX: E11.621 Type 2 diabetes mellitus with foot ulcer (principal); L97.524 Non-pressure chronic ulcer of other part of left foot with necrosis of bone; E11.42 Type 2 diabetes mellitus with diabetic polyneuropathy; E11.52 Type 2 diabetes mellitus with diabetic peripheral angiopathy with gangrene; E11.319 Type 2 diabetes mellitus with unspecified diabetic retinopathy without macular edema; E11.69 Type 2 diabetes mellitus with other specified complication; T87.89 Other complications of amputation stump; M86.671 Other chronic osteomyelitis, right ankle and foot; E78.4 Other hyperlipidemia; G89.29 Other chronic pain; I96 Gangrene, not elsewhere classified; F17.210 Nicotine dependence, cigarettes, uncomplicated; F41.9 Anxiety disorder, unspecified; Z89.022 Acquired absence of left finger(s); Z79.01 Long term (current) use of anticoagulants; Z79.4 Long term (current) use of insulin; Y83.5 Amputation of limb(s) as the cause of abnormal reaction of the patient, or of later complication, without mention of misadventure at the time of the procedure
CPT/HCPCS: 99213

== ENCOUNTER 2018-10-05 13:15 | Inpatient (IN) | payer BC ==
[~2018-10-05] VITALS: Ht 177.8 cm; Wt 81.8 kg
[2018-10-05 15:15] VITALS: BP 131/65
[2018-10-05] MEDS: INSULIN LISPRO 300 UNITS/3 ML INSULN.PEN. SQ SCH ×2 (17:00→18:18)
[2018-10-05 17:32] LABS: BASO # 0.1 x10^3/uL (0.0-0.2); BASO % 0 % (0-3); EOS % 0 % (0-3); HEMATOCRIT 34.4 % (39.0-53.0); HEMOGLOBIN 11.7 g/dL (13.0-17.5); LYMPH # 0.9 x10^3/uL (1.0-4.8); LYMPH % 5 % (24-48); MEAN CORPUSCULAR HEMOGLOBIN 31 pg (25-35); MEAN CORPUSCULAR HGB CONC 34 g/dL (31-37); MEAN CORPUSCULAR VOLUME 91 fL (79-100); MONO # 1.4 x10^3/uL (0.0-1.1); MONO % 7 % (0-9); NEUT # 17.6 x10^3uL (1.8-7.7); NEUT % 88 % (31-73); PLATELET COUNT 318 x10^3/uL (140-400); RED BLOOD COUNT 3.78 x10^6/uL (4.30-5.70); RED CELL DISTRIBUTION WIDTH 13.2 % (11.5-14.5)
[2018-10-05 17:33] LABS: BILIRUBIN,URINE NEGATIVE (NEG); CLARITY,URINE CLEAR; COLOR,URINE YELLOW; NITRITE,URINE NEGATIVE (NEG); PROTEIN,URINE NEGATIVE (NEG-TRACE); UROBILINOGEN,URINE 0.2 mg/dL (0.2 mg/dL)
[2018-10-05 17:49] LABS: BACTERIA,URINE 0 /HPF (0-FEW); RBC,URINE OCC /HPF (0-2); SQUAMOUS EPITHELIAL CELL,UR OCC /LPF; WBC,URINE 0 /HPF (0-4)
[2018-10-05 17:50] LABS: ALBUMIN 2.1 g/dL (3.4-5.0); ALBUMIN/GLOBULIN RATIO 0.4 (1.0-1.7); CALCIUM 9.6 mg/dL (8.5-10.1); GFR 78.8; POTASSIUM 4.8 mmol/L (3.5-5.1); TOTAL BILIRUBIN 0.6 mg/dL (0.2-1.0); TOTAL PROTEIN 7.6 g/dL (6.4-8.2)
[2018-10-05] MEDS: NON FORMULARY ITEM (Difluprednate (Durezol) 1 DROP) OP SCH ×3 (18:00→22:00)
[2018-10-05 18:06] LABS: % BANDS 12 % (0-9); % BASOS 1 % (0-3); % LYMPHS 4 % (24-48); % MONOS 9 % (0-10); % SEGS 74 % (35-66); PLT ESTIMATE ADEQUATE (ADEQUATE)
[2018-10-05 18:07] LABS: TOXIC GRANULATION SLIGHT
[2018-10-05 19:00] VITALS: BP 132/78
[2018-10-05] MEDS: oxyCODONE/APAP 10/325 1 TAB TABLET PO PRN (19:08)
[2018-10-05] MEDS: LORazepam 1 MG TABLET PO SCH (20:44)
[2018-10-05] MEDS: INSULIN GLARGINE 300 UNITS/3 ML INSULN.PEN. SQ SCH (20:48)
[2018-10-05 23:00] VITALS: BP 120/67
[2018-10-05] MEDS ORDERED: VANCOMYCIN 2 GM in IV NORMAL SALINE 500ML BAG 500 ML IV ONE (23:30)
[2018-10-05] MEDS: PIPERACILLIN/TAZOBACTAM 3.375 GM in IV NORMAL SALINE 50ML 50 ML IV SCH (23:57)
[2018-10-06] MEDS: VANCOMYCIN PER PHARMACY MC PRN ×2 (01:34→13:53)
[2018-10-06 03:00] VITALS: BP 126/73
[2018-10-06] MEDS: NON FORMULARY ITEM (Difluprednate (Durezol) 1 DROP) OP SCH ×6 (05:02→15:36)
[2018-10-06] MEDS: PIPERACILLIN/TAZOBACTAM 3.375 GM in IV NORMAL SALINE 50ML 50 ML IV SCH ×3 (05:04→17:51)
[2018-10-06] MEDS: oxyCODONE/APAP 10/325 1 TAB TABLET PO PRN ×2 (05:52→18:13)
[2018-10-06 07:00] VITALS: BP 114/62
[2018-10-06] MEDS: INSULIN LISPRO 300 UNITS/3 ML INSULN.PEN. SQ SCH ×3 (08:00→18:00)
[2018-10-06] MEDS: NON FORMULARY ITEM (Dextroamphetamine/Amphetamine (Adderall Xr 30 Mg Capsule) 1 CAP) PO SCH (08:33)
[2018-10-06] MEDS: PIOGLITAZONE 15 MG TABLET. PO SCH (08:33)
[2018-10-06] MEDS: LORazepam 1 MG TABLET PO SCH ×2 (08:33→21:20)
--- NOTE | 2018-10-06 08:47 | RAD ---
Indication:INPATIENT. NON HEALING ULCER ON 4TH DIGIT OF LEFT FOOT X2 WEEKS. Hx DIABETES. PRIOR AMPUTATIONS. PRIOR XRAY. TECHNIQUE: 3 views of the left foot COMPARISON:02/10/2018 FINDINGS: Status post transmetatarsal amputation of the 1-3 digits. No acute fractures or dislocation. Emphysema is seen in the fourth toe soft tissue. No underlying periosteal reaction or cortical erosion seen. Trace amount of emphysema is seen adjacent to the head of the fourth metatarsal. Small plantar calcaneal spur noted. Vascular calcifications suggesting peripheral arterial disease. IMPRESSION: 1. Interval transmetatarsal 1-3 digits amputation. 2. Soft tissue gas the fourth toe. Differential diagnoses includes overlying ulcer or anaerobic/gas forming infection. Electronically signed by: Monster Soriano DO (10/06/2018 8:44 AM) [id number]
--- NOTE | 2018-10-06 09:30 | PDOC ---
Infectious Disease Note Vital Sign Vital Signs Vital Signs Date Time Temp Pulse Resp B/P (MAP) Pulse Ox O2 Delivery O2 Flow Rate FiO2 10/06/18 07:00 99.0 102 20 114/62 (79) 93 Room Air 99.0 Labs Lab Laboratory Tests Test 10/05/18 17:15 10/05/18 17:20 10/05/18 20:39 10/06/18 08:07 Urine Collection Type Unknown Urine Color Yellow Urine Clarity Clear Urine pH 6.0 Urine Specific [place] >=1.030 Urine Protein Negative mg/dL (NEG-TRACE) Urine Glucose (UA) >=1000 mg/dL (NEG) Urine Ketones (Stick) Trace mg/dL (NEG) Urine Blood Negative (NEG) Urine Nitrite Negative (NEG) Urine Bilirubin Negative (NEG) Urine Urobilinogen Dipstick 0.2 mg/dL (0.2 mg/dL) Urine Leukocyte Esterase Negative (NEG) Urine RBC Occ /HPF (0-2) Urine WBC 0 /HPF (0-4) Urine Squamous Epithelial Cells Occ /LPF Urine Bacteria 0 /HPF (0-FEW) White Blood Count 20.0 x10^3/uL (4.0-11.0) Red Blood Count 3.78 x10^6/uL (4.30-5.70) Hemoglobin 11.7 g/dL (13.0-17.5) Hematocrit 34.4 % (39.0-53.0) Mean Corpuscular Volume 91 fL (79-100) Mean Corpuscular Hemoglobin 31 pg (25-35) Mean Corpuscular Hemoglobin Concent 34 g/dL (31-37) Red Cell Distribution Width 13.2 % (11.5-14.5) Platelet Count 318 x10^3/uL (140-400) Neutrophils (%) (Auto) 88 % (31-73) Lymphocytes (%) (Auto) 5 % (24-48) Monocytes (%) (Auto) 7 % (0-9) Eosinophils (%) (Auto) 0 % (0-3) Basophils (%) (Auto) 0 % (0-3) Neutrophils # (Auto) 17.6 x10^3uL (1.8-7.7) Lymphocytes # (Auto) 0.9 x10^3/uL (1.0-4.8) Monocytes # (Auto) 1.4 x10^3/uL (0.0-1.1) Eosinophils # (Auto) 0.0 x10^3/uL (0.0-0.7) Basophils # (Auto) 0.1 x10^3/uL (0.0-0.2) Segmented Neutrophils % 74 % (35-66) Band Neutrophils % 12 % (0-9) Lymphocytes % 4 % (24-48) Monocytes % 9 % (0-10) Basophils % 1 % (0-3) Toxic Granulation Slight Platelet Estimate Adequate (ADEQUATE) Erythrocyte Sedimentation Rate 115 (0-15) Sodium Level 127 mmol/L (136-145) Potassium Level 4.8 mmol/L (3.5-5.1) Chloride Level 90 mmol/L (98-107) Carbon Dioxide Level 31 mmol/L (21-32) Anion Gap 6 (6-14) Blood Urea Nitrogen 13 mg/dL (8-26) Creatinine 1.0 mg/dL (0.7-1.3) Estimated GFR (Cockcroft-Gault) 78.8 BUN/Creatinine Ratio 13 (6-20) Glucose Level 550 mg/dL (70-99) Calcium Level 9.6 mg/dL (8.5-10.1) Total Bilirubin 0.6 mg/dL (0.2-1.0) Aspartate Amino Transf (AST/SGOT) 10 U/L (15-37) Alanine Aminotransferase (ALT/SGPT) 18 U/L (16-63) Alkaline Phosphatase 188 U/L (46-116) Total Protein 7.6 g/dL (6.4-8.2) Albumin 2.1 g/dL (3.4-5.0) Albumin/Globulin Ratio 0.4 (1.0-1.7) Glucose (Fingerstick) 348 mg/dL (70-99) 152 mg/dL (70-99) Micro Microbiology Objective Assessment Left toes gangrene Left foot cellulitis Leukocytosis Poorly controlled DM PVD Tobaccoism Plan Plan of Care vanc and zosyn Ortho for TMA or more supportive care BS control quit smoking senior care prognosis poor sec to non compliance GAURI BECERRA MD Oct 06, 2018 09:30
[2018-10-06 10:54] VITALS: BP 94/57
[2018-10-06] MEDS: VANCOMYCIN 1.25 GM in IV NORMAL SALINE 250ML 250 ML IV SCH (13:40)
[2018-10-06 15:00] VITALS: BP 101/62
[2018-10-06 19:00] VITALS: BP 128/74
[2018-10-06] MEDS: LACTOBACILLUS RHAMNOSUS GG 1 CAPSULE. PO SCH (21:20)
[2018-10-06] MEDS: INSULIN GLARGINE 300 UNITS/3 ML INSULN.PEN. SQ SCH (21:25)
--- NOTE | 2018-10-06 22:30 | HP ---
ADMIT DATE: CHIEF COMPLAINT AND HISTORY OF PRESENT ILLNESS: This 53-year-old white male is well known to me in followup in the office. The patient was started on oral sulfa and Keflex over the weekend because of left foot infection over a phone call. It was no better by the day of admission, had obvious gangrene of his remaining fourth and fifth toes of left foot and as admitted for IV antibiotics, ID consultation, as well as surgical consultation. PAST MEDICAL HISTORY: Well documented in old charts includes peripheral vascular disease with prior amputations, longstanding diabetes, poor compliance with medicines, corneal transplant, peripheral vascular disease with interventions for the same; hypertension, chronic back pain with toe pain and severe spinal stenosis. MEDICATIONS: Brought with the patient, were on the computer and have been addressed. SOCIAL HISTORY: The patient continues to smoke, does not abuse alcohol or drugs. 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 FAMILY HISTORY: Noncontributory. REVIEW OF SYSTEMS: Remarkable for some chills and just generalized, not feeling well. He has no pain with his toes. Upon questioning about his hands, which showed multiple scabs, has really no good tingling there and obviously has neuropathy there with of the same, but not having feeling. PHYSICAL EXAMINATION: GENERAL: He is a well-developed, well-nourished white male in no acute distress. He has lost significant amount of weight over the last year or so. VITAL SIGNS: Stable. He is afebrile. HEENT: Remarkable for decreased vision. NECK: Supple without bruit or thyromegaly. CHEST: Clear to auscultation and percussion. HEART: Regular rate and rhythm without S3, S4 or murmur. ABDOMEN: Soft, nontender, without hepatosplenomegaly or masses. EXTREMITIES: Reveal the two remaining toes on the left foot being obviously gangrenous with no definite drainage at this point in time. He does have cellulitis extending at least third of way of the dorsum of the foot from nails. IMPRESSION: 1. Diabetic foot infection with gangrene. 2. Diabetes, peripheral arterial disease, tobaccoism. 3. [place] [id number] [place] admission. PLAN: Vancomycin and Zosyn have been started. ID and ortho have been consulted. He is going to need more surgery at this point in time. We will follow with consultation. PAT MOSHER MD DR: MEHRAN/denise JOB#: [id number] / [id number]
[2018-10-06 22:55] VITALS: BP 121/67
[2018-10-07] MEDS: oxyCODONE/APAP 10/325 1 TAB TABLET PO PRN ×3 (00:40→21:15)
[2018-10-07] MEDS: PIPERACILLIN/TAZOBACTAM 3.375 GM in IV NORMAL SALINE 50ML 50 ML IV SCH ×4 (00:40→17:25)
[2018-10-07] MEDS: VANCOMYCIN 1.25 GM in IV NORMAL SALINE 250ML 250 ML IV SCH ×2 (01:30→15:42)
[2018-10-07 03:05] VITALS: BP 114/65
--- NOTE | 2018-10-07 03:56 | PN ---
DATE: 10/06/2018 LOCATION: He is in room 578. SUBJECTIVE: The patient still feels like he has got some fight left in him. He has no necessarily pain or discomfort this morning. Blood sugar after being quite elevated last night is down in the 150 range this morning. OBJECTIVE: VITAL SIGNS: Stable. He is afebrile. GENERAL: Awake and alert. He is mildly tachycardic with a pulse of 105. I went ahead and started him on vancomycin and Zosyn last night, pending ID consult. White count on admission was 20,000 with a left shift. Sed rate was 115 suggesting osteomyelitis in that left foot. Sodium was low on admission at 127, but likely related to the high blood sugar. Albumin is low at 2.1. Imaging of his left foot shows soft tissue gas in the fourth toe, but no underlying periosteal reaction or cortical erosion seen although I am relatively 100% sure there is osteo involved here. CHEST: Clear. HEART: Regular. ABDOMEN: Benign. EXTREMITIES: He does have cellulitis present extending probably a third of the way up to the dorsum of his foot starting from the fourth toe. The fifth toe does not look any good either. IMPRESSION: 1. Diabetic foot infection with likely osteomyelitis. 2. Neuropathy with no pain from the same and actually bunch of wounds on his hands at this point in time suggesting neuropathic loss of feeling there in addition. 3. Diabetes with poor compliance as an outpatient with medical regimen. PLAN: Await ID consult as well as ortho consult. Expect he will need further amputation, but timing of that will be based on their feelings with the infection that is obvious. PAT MOSHER MD DR: MEHRAN/denise JOB#: [id number] / [id number]
--- NOTE | 2018-10-07 04:32 | CONS ---
DATE OF CONSULTATION: 10/06/2018 REQUESTING PHYSICIAN: Dr. Naren Manriquez REASON FOR CONSULTATION: Foot cellulitis. HISTORY OF PRESENT ILLNESS: This is a 53-year-old gentleman with a history of diabetes who has been admitted for left foot infection. The patient is practically blind. He does not know how long the foot has turned black. The patient denies any fever, denies any nausea, vomiting, diarrhea, chest pain, shortness of breath, abdominal pain, urinary symptoms or headache. 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 SOCIAL HISTORY: He continues to smoke, no alcohol use or drug use. ALLERGIES: THE PATIENT IS LISTED ALLERGIC TO BACTRIM. CURRENT MEDICATIONS: I started vancomycin and Zosyn. REVIEW OF SYSTEMS: As per HPI, all other systems reviewed are negative. PHYSICAL EXAMINATION: GENERAL: Alert and oriented gentleman, not in distress. VITAL SIGNS: Stable and afebrile. HEENT: NAD. NECK: Supple, no JVP, no lymphadenopathy. LUNGS: Clear. HEART: S1 and S2 regular. ABDOMEN: Benign. EXTREMITIES: No edema or cyanosis. The patient's left foot has two toes left. Both are gangrenous and has reportedly air in the x-ray as well as he does have cellulitis and the purulent discoloration at least it appears to be the pus under the skin, although there is no open wound with the drainage. He does have another wound on to the medial aspect of the foot, which is also necrotic. Dorsalis pedis is not palpable. Right foot is unremarkable other than the amputations. NEUROLOGIC: The patient is neurologically intact other than practically blind. LABORATORY DATA: White count is 20,000. ESR is 115, hemoglobin 11.7 and platelets are 318,000. BUN and creatinine is normal. Glucose 550. Albumin is 2.1. Urinalysis is unremarkable. The patient has a history of MRSA in the past. IMPRESSION: 1. Gangrenous two toes in the left foot. 2. Cellulitis of the left foot. 3. Leukocytosis. 4. Low-grade fever. 5. Diabetes, poor control. 6. Tobaccoism. 7. Hands with burn hester from soldering, which the patient should not do. RECOMMENDATION: 1. Vancomycin and Zosyn as I started. 2. We will check the cultures. 3. The patient needs surgery with at least TMA or more he may lose. 4. Advised to quit smoking. 5. 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 6. Also advised to control the blood sugar better. Thank you very much, Dr. Lima, for giving me the opportunity to participate in this patient's care. GAURI BECERRA MD DR: VICENTE/denise JOB#: [id number] / [id number]
[2018-10-07 05:18] LABS: GFR 78.8
[2018-10-07 07:00] VITALS: BP 126/72
[2018-10-07] MEDS: LACTOBACILLUS RHAMNOSUS GG 1 CAPSULE. PO SCH ×2 (08:21→21:15)
[2018-10-07] MEDS: PIOGLITAZONE 15 MG TABLET. PO SCH (08:21)
[2018-10-07] MEDS: LORazepam 1 MG TABLET PO SCH ×2 (08:22→21:15)
[2018-10-07] MEDS: INSULIN LISPRO 300 UNITS/3 ML INSULN.PEN. SQ SCH ×3 (08:28→17:31)
[2018-10-07] MEDS: NON FORMULARY ITEM (Dextroamphetamine/Amphetamine (Adderall Xr 30 Mg Capsule) 1 CAP) PO SCH (09:00)
--- NOTE | 2018-10-07 10:43 | PDOC ---
Infectious Disease Note Subjective Subjective pt is feeling good, waiting for surgery ROS ROS no n/v/d/sob Vital Sign Vital Signs Vital Signs Date Time Temp Pulse Resp B/P (MAP) Pulse Ox O2 Delivery O2 Flow Rate FiO2 10/07/18 08:22 Room Air 10/07/18 07:00 99.0 110 20 126/72 (90) 92 99.0 Physical Exam PHYSICAL EXAM GENERAL: Alert and oriented gentleman, not in distress. VITAL SIGNS: Stable and afebrile. HEENT: NAD. NECK: Supple, no JVP, no lymphadenopathy. LUNGS: Clear. HEART: S1 and S2 regular. ABDOMEN: Benign. EXTREMITIES: No edema or cyanosis. The patient's left foot has two toes left. Both are gangrenous and has reportedly air in the x-ray as well as he does have cellulitis and the purulent discoloration at least it appears to be the pus under the skin, although there is no open wound with the drainage. He does have another wound on to the medial aspect of the foot, which is also necrotic. Dorsalis pedis is not palpable. Right foot is unremarkable other than the amputations. NEUROLOGIC: The patient is neurologically intact other than practically blind. 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
[2018-10-07 11:00] VITALS: BP 125/80
[2018-10-07 11:12] LABS: HEMATOCRIT 36.2 % (39.0-53.0); HEMOGLOBIN 11.8 g/dL (13.0-17.5); RED BLOOD COUNT 3.98 x10^6/uL (4.30-5.70); RED CELL DISTRIBUTION WIDTH 13.8 % (11.5-14.5); WHITE BLOOD COUNT 14.9 x10^3/uL (4.0-11.0)
[2018-10-07 11:22] LABS: CALCIUM 9.5 mg/dL (8.5-10.1); CREATININE 1.2 mg/dL (0.7-1.3); GFR 63.8; POTASSIUM 4.4 mmol/L (3.5-5.1)
[2018-10-07 11:39] LABS: ALBUMIN 1.7 g/dL (3.4-5.0); ALBUMIN/GLOBULIN RATIO 0.3 (1.0-1.7); TOTAL BILIRUBIN 0.4 mg/dL (0.2-1.0)
[2018-10-07 12:46] LABS: VANC TR 13.1 mcg/mL (10.0-20.0)
[2018-10-07] MEDS: VANCOMYCIN PER PHARMACY MC PRN (13:23)
[2018-10-07] MEDS ORDERED: BACITRACIN 50,000 UNIT in IV NORMAL SALINE 500ML BAG 500 ML IRR ONE (14:30)
[2018-10-07] MEDS ORDERED: fentaNYL PF VIAL 100 MCG/2 ML VIAL ONE (14:53)
[2018-10-07] MEDS ORDERED: SEVOFLURANE 31 TO 60 MINUTES. IH ONE (14:53)
[2018-10-07] MEDS ORDERED: DEXAMETHASONE SOD PHOS 20 MG/5 ML VIAL. ONE (14:53)
[2018-10-07] MEDS ORDERED: MIDAZOLAM HCL/PF 2 MG/2 ML VIAL. ONE (14:53)
[2018-10-07] MEDS ORDERED: ONDANSETRON PF 4 MG/2 ML VIAL. ONE (14:54)
[2018-10-07] MEDS ORDERED: PROPOFOL 0 ML IV ONE (14:54)
[2018-10-07 15:00] VITALS: BP 136/80
--- NOTE | 2018-10-07 16:48 | PN ---
DATE: 10/07/2018 LOCATION: He is in room 578. SUBJECTIVE: The patient is awake, alert, unhappy with not having a bedside urinal available and he is just wet himself. OBJECTIVE: VITAL SIGNS: Stable. He is afebrile. Pulse is approximately 100. GENERAL: He is awake and alert. CHEST: Clear. HEART: Regular. ABDOMEN: Benign. EXTREMITIES: Left foot shows decreased redness of the dorsum of the foot; however, the particularly the 4th, but the 5th toes looked nonviable. LABORATORY DATA: Sugars are fair. ASSESSMENT: 1. Diabetic foot infection with likely osteomyelitis. 2. Neuropathy. 3. Diabetes with poor compliance. PLAN: Continue present antibiotics. Ortho has been consulted. He is going to need probably a transmetatarsal amputation the way things are looking at this point in time. PAT MOSHER MD DR: MEHRAN/denise JOB#: [id number] / [id number]
[2018-10-07 19:00] VITALS: BP 117/67
[2018-10-07] MEDS: INSULIN GLARGINE 300 UNITS/3 ML INSULN.PEN. SQ SCH (21:00)
[2018-10-07 23:00] VITALS: BP 107/63
[2018-10-08] VITALS (8 sets, daily range): BP systolic 106–133; BP diastolic 53–77
[2018-10-08] MEDS: PIPERACILLIN/TAZOBACTAM 3.375 GM in IV NORMAL SALINE 50ML 50 ML IV SCH ×4 (00:20→17:21)
[2018-10-08] MEDS: VANCOMYCIN 1.25 GM in IV NORMAL SALINE 250ML 250 ML IV SCH ×2 (01:34→13:40)
[2018-10-08 03:58] LABS: CREATININE 0.8 mg/dL (0.7-1.3); GFR 101.9
[2018-10-08] MEDS: oxyCODONE/APAP 10/325 1 TAB TABLET PO PRN ×2 (05:49→17:21)
[2018-10-08] MEDS ORDERED: FAMOTIDINE 20 MG/2 ML VIAL ONE (07:07)
[2018-10-08] MEDS ORDERED: DEXAMETHASONE SOD PHOS 20 MG/5 ML VIAL. ONE (07:07)
[2018-10-08] MEDS ORDERED: LIDOCAINE 1% PF 5 ML VIAL. ONE (07:07)
[2018-10-08] MEDS ORDERED: MIDAZOLAM HCL/PF 2 MG/2 ML VIAL. ONE (07:07)
[2018-10-08] MEDS ORDERED: PROPOFOL 20 ML IV ONE (07:07)
[2018-10-08] MEDS ORDERED: ONDANSETRON PF 4 MG/2 ML VIAL. ONE (07:07)
[2018-10-08] MEDS ORDERED: fentaNYL PF VIAL 100 MCG/2 ML VIAL ONE (07:07)
[2018-10-08] MEDS ORDERED: PHENYLEPHRINE in 0.9% NACL PF 1 MG/10 ML SYRINGE. IV ONE (07:42)
--- NOTE | 2018-10-08 07:46 | PDOC ---
TCOM NOTE TCOM note Performed 10/07/18 This is a 53-year-old patient recently admitted to the hospital for gangrenous distal left foot. Patient is not clear regarding onset. Patient is well-known to the wound care clinic. He has healed previous distal amputations with his last care at the wound clinic in mid June. Patient has demonstrated prominent noncompliance in the past. He is failed to follow offloading recommendations, recommendations for smoking cessation, blood glucose control and foot care. Patient is a prominent history of vascular disease. He has had prior angioplasty of multiple vessels in the left lower extremity. At this time the patient reports no dyspnea increased edema and we note he is not on any vasoactive medications or supplemental oxygen. Transcutaneous oximetry leads are placed at the left TM a level lateral to medial at leads 1 and 2 respectively, lead 3 is supramalleolar, lead for is proximal lower leg and lead 5 is a posterior calf flap placement. The readings on room air at 1 michael in leads 1 through 5 are as follows: 5 mmHg, 15 mmHg, 26 mmHg, 30 mmHg and 18 mmHg. The readings breathing 100% oxygen at 1 michael in leads 1 through 5 are as follows : 36 mmHg, 30 mmHg, 55 mmHg, 38 mmHg and 41 mmHg. All readings demonstrated values less than 40 mmHg which is considered necessary for wound healing and collagen formation. Several readings are less than 20 mmHg indicating critical ischemia. All values improve with oxygen with no lead exceeding 100 mmHg on supplemental oxygen. This suggests possible limited value with hyperbaric oxygen therapy. Most sensitive test however is in in chamber reading in excess of 200 mm or mercury. This should be undertaken if postoperative healing is impaired or flap threatened in an effort to prevent postsurgical complication and in AM salvage effort. Consider vascular reassessment of the major arteries left lower extremity. ONDINA MEDEROS DO Oct 08, 2018 07:46
--- NOTE | 2018-10-08 07:59 | CONS ---
DATE OF CONSULTATION: 10/08/2018 CHIEF COMPLAINT: Left foot infection. HISTORY OF PRESENT ILLNESS: The patient is a 53-year-old male with a history of diabetes mellitus who presents with a left foot severe infection. He has had previous 1-3rd toe amputations on his left foot and he reports that over the past several weeks his left 4th and 5th toes became black, very odorous and the foot became red. He has been admitted to the hospital and started on IV antibiotics. X-ray shows gas gangrene within the tissues. He does have a history of peripheral arterial disease and underwent an angiogram in 01/2018 with angioplasty of his popliteal and tibial vessels. He reports no significant pain in his left foot. He has had previous toe amputations in his right foot, but reports no pain or signs of infection in his right foot. REVIEW OF SYSTEMS: A 10-point review of systems was performed, which is otherwise negative besides what is mentioned in the history of present illness. PAST MEDICAL HISTORY: Includes: 1. Diabetes mellitus, which per chart review he is very noncompliant. 2. Peripheral arterial disease. 3. Peripheral neuropathy. 4. Hypertension. 5. Spinal stenosis. 6. Corneal transplant and partially blind. PAST SURGICAL HISTORY: Includes: 1. Amputations on both the left and right foot removing several toes. 2. Corneal transplant. SOCIAL HISTORY: The patient continues to smoke on a daily basis. He does not use alcohol or drugs. ALLERGIES: INCLUDE BACTRIM. MEDICATIONS: Please see his full MAR. FAMILY HISTORY: Noncontributory for this current problem. PHYSICAL EXAMINATION: GENERAL: The patient is awake and alert, currently in no apparent distress. VITAL SIGNS: His blood pressure is 110/56. He has got a maximum temperature of 99.6 and his heart rate is 111. He is 95% on room air. NECK: Supple. CHEST: Clear to auscultation bilaterally. HEART: Regular rate and rhythm without murmurs. ABDOMEN: Soft, nondistended and nontender. EXTREMITIES: His left lower extremity is warm without edema, there is erythema of his forefoot, his 1-3rd toes have been previously amputated, his fourth and fifth toes are black with gangrene throughout the toes extending on to the distal forefoot with fluctuance and surrounding erythema. There are no palpable pulses in his left foot. Right lower extremity is warm without edema. He has previous first toe amputation. There is a callus on the side of his toe, but there are no open wounds or signs of infection in his right foot. I do not palpate pulses in his right foot. ASSESSMENT 1. Left fourth and fifth toe/forefoot severe infected gas gangrene extending with cellulitis of the foot. 2. Left lower extremity peripheral arterial disease. 3. Uncontrolled diabetes mellitus. PLAN: The patient has severe infected gas gangrene of the left fourth and fifth toes and forefoot. He requires a left fourth and fifth open ray amputations, possible open transmetatarsal amputation. He will need long-term wound care with a wound VAC. There is a risk that this may not heal and he may require a below knee amputation in the future. He also has significant peripheral arterial disease, has undergone angioplasty in 01/2018. Will check duplex scan. He is on IV antibiotics per Infectious Disease. JONATAN MENDEZ MD DR: EDDIE/denise JOB#: [id number] / [id number] [place]
[2018-10-08] MEDS ORDERED: SEVOFLURANE 31 TO 60 MINUTES. IH ONE (08:03)
--- NOTE | 2018-10-08 08:12 | PDOC ---
YAKELIN IRWIN APRN 10/08/18 0812: BRIEF OPERATIVE NOTE Date: Oct 08, 2018 Pre-Op Diagnosis Left foot with infected gangrenous toes extending on to the distal forefoot with cellulitis of the foot. Left lower extremity peripheral arterial disease. Uncontrolled diabetes mellitus. Post-Op Diagnosis same Procedure Performed Left transmetatarsal amputation Surgeon Dr. Gipson Lasting Machine Operator Bed Yakelin Irwin,TAYE Anesthesia Type: General Blood Loss 10cc Specimens Obtained left transmetatarsal Findings gangrenous toes and purulent drainage extending into midfoot Complications none Operative Note see dictated note JONATAN GIPSON MD 10/08/18 0815: BRIEF OPERATIVE NOTE Operative Note Left foot severe infection requiring proximal open TMA. There continues to be infection tracking on the plantar region up to the heel/ankle region. This was packed with antibiotic soaked gauze. Will try antibiotics and wound care however if this does not improve he will need a below knee amputation. YAKELIN IRWIN APRN Oct 08, 2018 08:12 JONATAN GIPSON MD Oct 08, 2018 08:15
[2018-10-08] MEDS ORDERED: MORPHINE SULFATE 2 MG/ML VIAL. IV PRN (08:15)
[2018-10-08] MEDS: LACTOBACILLUS RHAMNOSUS GG 1 CAPSULE. PO SCH ×2 (09:33→21:36)
[2018-10-08] MEDS: LORazepam 1 MG TABLET PO SCH ×2 (09:33→21:35)
[2018-10-08] MEDS: PIOGLITAZONE 15 MG TABLET. PO SCH (09:33)
[2018-10-08] MEDS: DULoxetine HCL 30 MG CAPSULE.DR PO SCH (09:33)
[2018-10-08] MEDS: INSULIN LISPRO 300 UNITS/3 ML INSULN.PEN. SQ SCH ×3 (09:43→17:30)
--- NOTE | 2018-10-08 09:58 | PDOC ---
Infectious Disease Note Subjective Subjective pt is feeling ok ROS ROS no n/v/d/sob Vital Sign Vital Signs Vital Signs Date Time Temp Pulse Resp B/P (MAP) Pulse Ox O2 Delivery O2 Flow Rate FiO2 10/08/18 09:30 93 20 113/53 (73) 94 10/08/18 09:15 Room Air 10/08/18 08:56 98.3 98.3 10/08/18 08:24 8 Physical Exam PHYSICAL EXAM GENERAL: Alert and oriented gentleman, not in distress. VITAL SIGNS: Stable and afebrile. HEENT: NAD. NECK: Supple, no JVP, no lymphadenopathy. LUNGS: Clear. HEART: S1 and S2 regular. ABDOMEN: Benign. EXTREMITIES: No edema or cyanosis. post surgical dressing not opened NEUROLOGIC: The patient is neurologically intact other than practically blind. Labs Lab Laboratory Tests Test 10/07/18 10:45 10/07/18 11:53 10/07/18 12:25 10/07/18 16:20 White Blood Count 14.9 x10^3/uL (4.0-11.0) Red Blood Count 3.98 x10^6/uL (4.30-5.70) Hemoglobin 11.8 g/dL (13.0-17.5) Hematocrit 36.2 % (39.0-53.0) Mean Corpuscular Volume 91 fL (79-100) Mean Corpuscular Hemoglobin 30 pg (25-35) Mean Corpuscular Hemoglobin Concent 33 g/dL (31-37) Red Cell Distribution Width 13.8 % (11.5-14.5) Platelet Count 412 x10^3/uL (140-400) Sodium Level 133 mmol/L (136-145) Potassium Level 4.4 mmol/L (3.5-5.1) Chloride Level 94 mmol/L (98-107) Carbon Dioxide Level 33 mmol/L (21-32) Anion Gap 6 (6-14) Blood Urea Nitrogen 23 mg/dL (8-26) Creatinine 1.2 mg/dL (0.7-1.3) Estimated GFR (Cockcroft-Gault) 63.8 BUN/Creatinine Ratio 19 (6-20) Glucose Level 189 mg/dL (70-99) Lactic Acid Level 2.1 mmol/L (0.4-2.0) Calcium Level 9.5 mg/dL (8.5-10.1) Total Bilirubin 0.4 mg/dL (0.2-1.0) Aspartate Amino Transf (AST/SGOT) 24 U/L (15-37) Alanine Aminotransferase (ALT/SGPT) 19 U/L (16-63) Alkaline Phosphatase 152 U/L (46-116) Total Protein 8.0 g/dL (6.4-8.2) Albumin 1.7 g/dL (3.4-5.0) Albumin/Globulin Ratio 0.3 (1.0-1.7) Glucose (Fingerstick) 145 mg/dL (70-99) 326 mg/dL (70-99) Vancomycin Level Trough 13.1 mcg/mL (10.0-20.0) Vancomycin Last Dose Date 10/07/18 Vancomycin Last Dose Time 0100 Test 10/07/18 21:15 10/07/18 23:15 10/08/18 03:15 10/08/18 07:14 Glucose (Fingerstick) 85 mg/dL (70-99) 223 mg/dL (70-99) Lactic Acid Level 0.8 mmol/L (0.4-2.0) Creatinine 0.8 mg/dL (0.7-1.3) Estimated GFR (Cockcroft-Gault) 101.9 Test 10/08/18 08:15 10/08/18 09:25 Glucose (Fingerstick) 206 mg/dL (70-99) 243 mg/dL (70-99) Micro Microbiology Objective Assessment Left toes gangrene s/p TMA Left foot cellulitis Leukocytosis Poorly controlled DM PVD Tobaccoism Plan Plan of Care torri d/w vascular surgery, may need BKA, infection is in ankle supportive care BS control quit smoking senior care prognosis poor sec to non compliance GAURI BECERRA MD Oct 08, 2018 09:58
--- NOTE | 2018-10-08 10:46 | OP ---
DATE OF SURGERY: 10/08/2018 SURGEON: Joan Gipson MD. LEAD TANK MECHANIC: Apolonia Marks APRN. PREOPERATIVE DIAGNOSIS: Left foot severe infection with wet gangrene of the left fourth and fifth toe extending to the forefoot, previous first through third toe amputations. POSTOPERATIVE DIAGNOSES: Extensive infected gangrene of the left fourth and fifth toes, the entire forefoot extending to the first, second, third, fourth and fifth metatarsal bones with abscess cavity tracking on the plantar surface all the way up to his heel and ankle region. OPERATION PERFORMED: Left open proximal transmetatarsal amputation. ANESTHESIA USED: General. BLOOD LOSS: 10 mL. INDICATIONS: The patient is a 53-year-old male with uncontrolled diabetes, who presents to the hospital with left forefoot and fourth and fifth toe infected wet gangrene. This has been going on for several weeks. His father stated he tried to have him come to the hospital a week ago, but the patient refused to come. X-ray shows gas gangrene of the forefoot. I recommended an open fourth and fifth toe amputation with possible more proximal transmetatarsal amputation for the severe infection. Informed consent was obtained from the patient including the risks of bleeding, further infection requiring further amputation in the future including a possible below knee amputation, long-term wound care and possible need for further surgery. DETAILS OF THE OPERATION: The patient was brought to the operating room and placed on table in supine position. He received general anesthesia monitored throughout the case by the anesthesiologist. His left foot was prepped and draped by normal sterile fashion. We began by making an incision around the base of his left fourth and fifth toes. We incised in and copious amounts of pus poured out of his foot. This was sent for culture. They continued down to the bones and transected the bones. There is extensive gangrene throughout the wound bed. We excised this multiple times more proximally; however, were not able to get back to healthy planes. Tissues continued to be gangrenous. The gangrene was also extending all the way around to the first metatarsal bone. Pus poured out of the wound around the first metatarsal bone and there was gangrene of the tissues around this area. Therefore, I thought it best to do a more proximal transmetatarsal amputation. We performed this, which really at the mid and proximal foot before we got back to healthier tissue incision for mid to proximal foot transmetatarsal amputation. We dissected down to the metatarsal bones and we divided all the metatarsal bones with a bone cutter. There continued to be a tract on the plantar surface of the wound with gangrenous tendons and muscles and when we pushed on the ankle and heel region, pus poured out of this area of the foot as well. We excised the tendons and muscles on the plantar surface trying to get back to healthier tissue. There is no further room to go more proximal on this transmetatarsal amputation. The bones were brought back within the wound with a rongeur. Tendons were removed. We irrigated the plantar tract with copious amounts of antibiotic solution and irrigated the wound with copious amounts of antibiotic solution. I feel that we can try antibiotics and wound care, but he is at high risk of needing below knee amputation. Hemostasis was gained with electrocautery. We packed the plantar tract with antibiotic-soaked gauze, packed the wound with antibiotic-soaked sponge, wrapped it with Kerlix wrap and an Sharan bandage. He will be taken to recovery. No immediate complications. JOAN GIPSON MD DR: EDDIE/denise JOB#: [id number] / [id number]
--- NOTE | 2018-10-08 14:35 | PDOC2 ---
CONSULT Date of Consult Date of Consult DATE: 10/08/18 TIME: 14:10 Reason for Consult Reason for Consult: Appropriateness of hyperbaric therapy Referring Physician Referring Physician: Dr. Gipson Identification/Chief Complaint Chief Complaint This is a 53-year-old patient admitted to the hospital for left foot severe infection. He is believed to have occurred over several weeks. This morning the patient underwent debridement. Consideration for gas gangrene was raised in association with the prominent cellulitis and during debridement. Patient is seen and examined in the hospital room hours after postoperative recovery. Problems: (1) Diabetic foot ulcer (2) Non-pressure chronic ulcer of other part of left foot with necrosis of bone Source Source: Chart review History of Present Illness Reason for Visit: This patient provided surprisingly little history at consultation. Mental status was clouded. We found the patient sprawled between bed and floor poorly cooperative with orientation to person and place only. His ability as a historian was significantly impaired. He is well-known to the wound care center for previous care of bilateral diabetic foot ulcers. These have eventually heel despite rather prominent patient noncompliance. We note from chart review that he continues to smoke. He has known peripheral vascular disease and has had multiple angioplasties to the left lower extremity in the past. At this time the postoperative debridement is dressed and will not be disturbed. Per the operative note post debridement measurements were 13 cm x 4 cm x 4 cm on the most prominent distal mid foot area of debridement with extensive tunneling into the hindfoot. Past Medical History Cardiovascular: HTN, Hyperlipidemia, Other Pulmonary: No pertinent hx CENTRAL NERVOUS SYSTEM: Periperal neuropathy Endocrine: Diabetes Dermatology: Other (prominent history of diabetic foot ulcers requiring multiple amputations in significant debridements in the past.) Past Surgical History Past Surgical History Patient has undergone multiple lower extremity debridements and amputations related to diabetes, peripheral vascular disease and noncompliance. He is also had left eye removed. Past Surgical History: Other Family History Family History: Hypertension Social History Social History Patient continues to utilize tobacco ALCOHOL: occassional Drugs: None Lives: Alone Current Medications Current Medications Current Medications Lorazepam (Ativan) 1 mg BID PO Last administered on 10/08/18at 09:33; Start at 21:00 Oxycodone/ Acetaminophen (Percocet 10/325) 2 tab PRN Q4HRS PRN PO MODERATE TO SEVERE PAIN Last administered on 10/08/18at 05:49; Start 10/05/18 at 16:45 Non-Formulary Medication (Dextroamphetamine/ Amphetamine (Adderall Xr 30 Mg Capsule)) 1 cap DAILY PO ; Start 10/06/18 at 09:00; Stop 10/07/18 at 13:09; Status DC Non-Formulary Medication (Difluprednate (Durezol)) 1 drop Q2HR W/A OP ; Start 10/05/18 at 18:00; Stop 10/06/18 at 17:22; Status DC Insulin Glargine (Lantus) 50 units QHS SQ Last administered on 10/06/18at 21:25 ; Start 10/05/18 at 21:00 Insulin Human Lispro (HumaLOG) 60 units TIDWMEALS SQ Last administered on 10/08at 12:38; Start 10/05/18 at 17:00 Pioglitazone HCl (Actos) 15 mg DAILY PO Last administered on 10/08/18at 09:33; Start 10/06/18 at 09:00 Piperacillin Sod/ Tazobactam Sod 3.375 gm/Sodium Chloride 50 ml @ 100 mls/hr Q6HRS IV Last administered on 10/08/18at 12:33; Start 10/06/18 at 00:00 Vancomycin HCl (Vanco Per Pharmacy) 1 each PRN DAILY PRN MC SEE COMMENTS Last administered on 10/07/18at 13:23; Start 10/05/18 at 23:15 Vancomycin HCl 2 gm/Sodium Chloride 500 ml @ 250 mls/hr 1X ONCE IV Last administered on 10/06/18at 01:08; Start 10/05/18 at 23:30; Stop 10/06/18 at 01 :29; Status DC Vancomycin HCl 1.25 gm/Sodium Chloride 250 ml @ 167 mls/hr Q12H IV Last administered on 10/08/18at 13:40; Start 10/06/18 at 13:00 Vancomycin HCl (Vancomycin Trough Level) 1 each 1X ONCE MC Last administered on 10/07/18at 12:30; Start 10/07/18 at 12:30; Stop 10/07/18 at 12:31; Status DC Lactobacillus Rhamnosus (Culturelle) 1 cap BID PO Last administered on at 09:33; Start 10/06/18 at 21:00 Bacitracin 97026 unit/Sodium Chloride 500 ml @ 500 mls/hr 1X ONCE IRR ; Start 10/07/18 at 14:30; Stop 10/07/18 at 15:29; Status DC Sevoflurane (Ultane) 30 ml STK-MED ONCE IH ; Start 10/07/18 at 14:53; Stop at 14:54; Status DC Midazolam HCl (Versed) 2 mg STK-MED ONCE .ROUTE ; Start 10/07/18 at 14:53; Stop 10/07/18 at 14:54; Status DC Fentanyl Citrate (Fentanyl 2ml Vial) 100 mcg STK-MED ONCE .ROUTE ; Start at 14:53; Stop 10/07/18 at 14:54; Status DC Dexamethasone Sodium Phosphate (Decadron) 20 mg STK-MED ONCE .ROUTE ; Start at 14:53; Stop 10/07/18 at 14:54; Status DC Ondansetron HCl (Zofran) 4 mg STK-MED ONCE .ROUTE ; Start 10/07/18 at 14:54; Stop 10/07/18 at 14:55; Status DC Propofol 0 ml @ As Directed STK-MED ONCE IV ; Start 10/07/18 at 14:54; Stop at 14:55; Status DC Lidocaine HCl (Xylocaine-Mpf 1% 5ml Vial) 5 ml STK-MED ONCE .ROUTE ; Start at 07:07; Stop 10/08/18 at 07:08; Status DC Propofol 20 ml @ As Directed STK-MED ONCE IV ; Start 10/08/18 at 07:07; Stop 10/08/18 at 07:08; Status DC Dexamethasone Sodium Phosphate (Decadron) 20 mg STK-MED ONCE .ROUTE ; Start at 07:07; Stop 10/08/18 at 07:08; Status DC Famotidine (Pepcid Vial) 20 mg STK-MED ONCE .ROUTE ; Start 10/08/18 at 07:07; Stop 10/08/18 at 07:08; Status DC Ondansetron HCl (Zofran) 4 mg STK-MED ONCE .ROUTE ; Start 10/08/18 at 07:07; Stop 10/08/18 at 07:08; Status DC Fentanyl Citrate (Fentanyl 2ml Vial) 100 mcg STK-MED ONCE .ROUTE ; Start at 07:07; Stop 10/08/18 at 07:08; Status DC Midazolam HCl (Versed) 2 mg STK-MED ONCE .ROUTE ; Start 10/08/18 at 07:07; Stop 10/08/18 at 07:08; Status DC Phenylephrine HCl (PHENYLEPHRINE in 0.9% NACL PF) 1 mg STK-MED ONCE IV ; Start 10/08/18 at 07:42; Stop 10/08/18 at 07:43; Status DC Sevoflurane (Ultane) 30 ml STK-MED ONCE IH ; Start 10/08/18 at 08:03; Stop at 08:04; Status DC Morphine Sulfate (Morphine Sulfate) 2 mg PRN Q2HR PRN IV PAIN; Start 10/08/18 at 08:15 Duloxetine HCl (Cymbalta) 30 mg DAILY PO Last administered on 10/08/18at 09:33 ; Start 10/08/18 at 09:00 Active Scripts Active Ativan (Lorazepam) 1 Mg Tablet 1 Mg PO BID 5 Days Reported Durezol (Difluprednate) 5 Ml Drops 1 Drop OP Q2HR W/A Tresiba Flextouch U-100 (Insulin Degludec) 100 Unit/1 Ml Insuln.pen 50 Unit SQ HS Actos (Pioglitazone Hcl) 15 Mg Tablet 1 Tab PO DAILY Oxycodone-Acetaminophen 10-325 (Oxycodone Hcl/Acetaminophen) 1 Each Tablet 2 Tab PO PRN Q4HRS PRN Adderall Xr 30 Mg Capsule (Dextroamphetamine/Amphetamine) 30 Mg Cap.er.24h 1 Cap PO DAILY Humalog (Insulin Lispro) 100 Unit/1 Ml Cartridge 60 Unit SQ TIDBFRMEAL Allergies Allergies: Coded Allergies: sulfamethoxazole (Verified Allergy, Intermediate, Rash, 02/13/18) trimethoprim (Verified Allergy, Intermediate, Rash, 02/13/18) I S O L A T I O N *CONTACT* (Verified Allergy, Unknown, 04/13/18) mrsa ROS Review of System Unable to accomplish an effective review of systems due to patient's postoperative mental status. Physical Exam General: Other (patient is demonstrating no obvious distress. He is oriented to person and place.) HEENT: Atraumatic, EOMI (right eye tested only) Lungs: Clear to auscultation, Normal air movement Heart: Regular rate Abdomen: Soft, No tenderness (apparent tenderness is noted.) Skin: Other (status post distal amputation on the right foot and postoperative bandages are identified on the left. No crepitance is appreciated in supramalleolar tissue) Neuro: Other (patient is noted to move all extremities. Inappropriate are incorrect speech is identified.) Psych/Mental Status: Other (altered mental status demonstrated with inaccurate speech) Vitals VITALS Vital Signs Date Time Temp Pulse Resp B/P (MAP) Pulse Ox O2 Delivery O2 Flow Rate FiO2 10/08/18 12:26 Room Air 10/08/18 10:15 98 124/67 (86) 93 10/08/18 09:45 20 10/08/18 08:56 98.3 98.3 10/08/18 08:24 8 Labs Labs Laboratory Tests Test 10/06/18 16:00 10/06/18 20:05 10/07/18 04:15 10/07/18 07:17 Glucose (Fingerstick) 200 mg/dL (70-99) 249 mg/dL (70-99) 182 mg/dL (70-99) Creatinine 1.0 mg/dL (0.7-1.3) Estimated GFR (Cockcroft-Gault) 78.8 Test 10/07/18 10:45 10/07/18 11:53 10/07/18 12:25 10/07/18 16:20 White Blood Count 14.9 x10^3/uL (4.0-11.0) Red Blood Count 3.98 x10^6/uL (4.30-5.70) Hemoglobin 11.8 g/dL (13.0-17.5) Hematocrit 36.2 % (39.0-53.0) Mean Corpuscular Volume 91 fL (79-100) Mean Corpuscular Hemoglobin 30 pg (25-35) Mean Corpuscular Hemoglobin Concent 33 g/dL (31-37) Red Cell Distribution Width 13.8 % (11.5-14.5) Platelet Count 412 x10^3/uL (140-400) Sodium Level 133 mmol/L (136-145) Potassium Level 4.4 mmol/L (3.5-5.1) Chloride Level 94 mmol/L (98-107) Carbon Dioxide Level 33 mmol/L (21-32) Anion Gap 6 (6-14) Blood Urea Nitrogen 23 mg/dL (8-26) Creatinine 1.2 mg/dL (0.7-1.3) Estimated GFR (Cockcroft-Gault) 63.8 BUN/Creatinine Ratio 19 (6-20) Glucose Level 189 mg/dL (70-99) Lactic Acid Level 2.1 mmol/L (0.4-2.0) Calcium Level 9.5 mg/dL (8.5-10.1) Total Bilirubin 0.4 mg/dL (0.2-1.0) Aspartate Amino Transf (AST/SGOT) 24 U/L (15-37) Alanine Aminotransferase (ALT/SGPT) 19 U/L (16-63) Alkaline Phosphatase 152 U/L (46-116) Total Protein 8.0 g/dL (6.4-8.2) Albumin 1.7 g/dL (3.4-5.0) Albumin/Globulin Ratio 0.3 (1.0-1.7) Glucose (Fingerstick) 145 mg/dL (70-99) 326 mg/dL (70-99) Vancomycin Level Trough 13.1 mcg/mL (10.0-20.0) Vancomycin Last Dose Date 10/07/18 Vancomycin Last Dose Time 0100 Test 10/07/18 21:15 10/07/18 23:15 10/08/18 03:15 10/08/18 07:14 Glucose (Fingerstick) 85 mg/dL (70-99) 223 mg/dL (70-99) Lactic Acid Level 0.8 mmol/L (0.4-2.0) Creatinine 0.8 mg/dL (0.7-1.3) Estimated GFR (Cockcroft-Gault) 101.9 Test 10/08/18 08:15 10/08/18 09:25 Glucose (Fingerstick) 206 mg/dL (70-99) 243 mg/dL (70-99) Laboratory Tests Test 10/07/18 16:20 10/07/18 21:15 10/07/18 23:15 10/08/18 03:15 Glucose (Fingerstick) 326 mg/dL (70-99) 85 mg/dL (70-99) Lactic Acid Level 0.8 mmol/L (0.4-2.0) Creatinine 0.8 mg/dL (0.7-1.3) Estimated GFR (Cockcroft-Gault) 101.9 Test 10/08/18 07:14 10/08/18 08:15 10/08/18 09:25 Glucose (Fingerstick) 223 mg/dL (70-99) 206 mg/dL (70-99) 243 mg/dL (70-99) Assessment/Plan Assessment/Plan Diabetic Martino 4 ulceration of the left midfoot with evidence of bone necrosis and associated gas gangrene findings. Patient has findings appropriate for consideration of adjunctive hyperbaric therapy following appropriate surgical debridement. This is been performed. Patient's mental status and ability to follow commands necessary for hyperbaric therapy not demonstrated at this time. This would pose an unacceptable risk. He does not demonstrate an ability to comprehend and provide appropriate informed consent. Bedside blood glucose was noted to be 210. It may be that the concomitant infection is causing some altered sensorium but he appears hemodynamically stable otherwise at this time. Patient's mental status will need to be reevaluated for consideration to utilize hyperbaric therapy and this will be undertaken in the morning. If capable, orders will be written for 2 time daily hyperbaric therapy, with appropriate descent ascent at 2.4 michael recognizing that this is an effort to prevent the highly likely scenario of lower extremity amputation. Anticipate reevaluation in the morning. ONDINA MEDEROS DO Oct 08, 2018 14:35
--- NOTE | 2018-10-08 15:24 | RAD ---
Left lower extremity arterial Doppler ultrasound HISTORY: DX: diminished pulses; non healing ulcer TECHNIQUE: Color Doppler, grayscale and duplex analysis performed of the lower extremity arterial structures, from the common femoral artery through the runoff vessels. COMPARISON: None are available Findings: All velocity measurements are in centimeters per second. Moderate amount of plaque identified throughout the left lower extremity arterial system. Mostly monophasic waveforms with some biphasic waveforms identified from the superficial femoral artery through the calf and ankle. Common femoral artery peak systolic velocity is 146, deep femoral artery 278. The superficial femoral artery velocities are 312 proximally, 214 midsegment and 130 distal. Popliteal artery velocity 86. Peroneal artery velocity 256. The anterior tibial and dorsalis pedis arteries are not visualized. IMPRESSION: Severe atherosclerotic disease, with mostly monophasic waveforms. Elevated velocities are identified, particularly at the proximal to mid superficial femoral artery, and at the peroneal artery, compatible with high-grade stenoses. Anterior tibial artery and dorsalis pedis artery are not visualized, compatible with occlusion. Electronically signed by: Edilberto Maier MD (10/08/2018 3:21 PM) [facility]
--- NOTE | 2018-10-08 15:59 | PN ---
DATE: 10/08/2018 ROOM: 578. SUBJECTIVE: The patient is seen in recovery room following surgery with a transmetatarsal amputation of the left foot and was speaking with surgery with extension of the infection up to the ankle area. She is not sure at this point in time whether this will heal and he may need a [id number] amputation, but will give it a few days of antibiotics to see what things look like. OBJECTIVE: VITAL SIGNS: Stable. He is afebrile. CHEST: Clear. HEART: Regular. ABDOMEN: Benign. LABORATORY DATA: White count is decreased to 14,900 with antibiotics. Sugars have been fair. IMPRESSION: 1. Diabetic foot infection with extension as noted above. 2. Neuropathy. 3. Poorly compliant with his diabetic regimen. PLAN: Continue antibiotics. We will follow surgery's recommendations on the need for further surgery with ongoing antibiotics in the interim. I discussed in detail with his dad following surgery who feels like he is profoundly depressed and I agree. I am going to start him on some Cymbalta, which should help with some neuropathy symptoms as well as hopefully the depression. PAT MOSHER MD DR: MEHRAN/denise JOB#: [id number] / [id number]
[2018-10-08] MEDS: VANCOMYCIN PER PHARMACY MC PRN (16:24)
[2018-10-08] MEDS: INSULIN GLARGINE 300 UNITS/3 ML INSULN.PEN. SQ SCH (21:48)
[2018-10-09] MEDS: PIPERACILLIN/TAZOBACTAM 3.375 GM in IV NORMAL SALINE 50ML 50 ML IV SCH ×5 (00:23→23:16)
[2018-10-09 00:47] LABS: VANC TR 12.3 mcg/mL (10.0-20.0)
[2018-10-09] MEDS: VANCOMYCIN PER PHARMACY MC PRN (01:10)
[2018-10-09] MEDS: VANCOMYCIN 1.25 GM in IV NORMAL SALINE 250ML 250 ML IV SCH ×2 (02:20→14:31)
[2018-10-09] MEDS: oxyCODONE/APAP 10/325 1 TAB TABLET PO PRN ×3 (02:24→17:55)
[2018-10-09 05:15] LABS: BASO % 0 % (0-3); EOS % 0 % (0-3); HEMATOCRIT 28.3 % (39.0-53.0); HEMOGLOBIN 9.7 g/dL (13.0-17.5); LYMPH # 0.9 x10^3/uL (1.0-4.8); LYMPH % 6 % (24-48); MEAN CORPUSCULAR HEMOGLOBIN 31 pg (25-35); MEAN CORPUSCULAR HGB CONC 34 g/dL (31-37); MEAN CORPUSCULAR VOLUME 91 fL (79-100); MONO % 7 % (0-9); NEUT # 12.8 x10^3uL (1.8-7.7); NEUT % 87 % (31-73); PLATELET COUNT 344 x10^3/uL (140-400); RED BLOOD COUNT 3.12 x10^6/uL (4.30-5.70); RED CELL DISTRIBUTION WIDTH 13.8 % (11.5-14.5); WHITE BLOOD COUNT 14.8 x10^3/uL (4.0-11.0)
[2018-10-09 05:30] LABS: CALCIUM 8.1 mg/dL (8.5-10.1); CREATININE 0.9 mg/dL (0.7-1.3); POTASSIUM 4.6 mmol/L (3.5-5.1)
[2018-10-09 07:00] VITALS: BP 104/66
--- NOTE | 2018-10-09 08:53 | PDOC ---
Infectious Disease Note Subjective Subjective pt is feeling good, emotionally not ready for BKA ROS ROS no n/v/d/sob/fever Vital Sign Vital Signs Vital Signs Date Time Temp Pulse Resp B/P (MAP) Pulse Ox O2 Delivery O2 Flow Rate FiO2 10/09/18 07:00 97.9 99 18 104/66 (79) 93 Room Air 97.9 10/08/18 08:24 8 Physical Exam PHYSICAL EXAM GENERAL: Alert and oriented gentleman, not in distress. VITAL SIGNS: Stable and afebrile. HEENT: NAD. NECK: Supple, no JVP, no lymphadenopathy. LUNGS: Clear. HEART: S1 and S2 regular. ABDOMEN: Benign. EXTREMITIES: No edema or cyanosis. post surgical dressing not opened NEUROLOGIC: The patient is neurologically intact other than practically blind. Labs Lab Laboratory Tests Test 10/08/18 09:25 10/08/18 12:17 10/08/18 16:12 10/08/18 21:00 Glucose (Fingerstick) 243 mg/dL (70-99) 212 mg/dL (70-99) 152 mg/dL (70-99) 379 mg/dL (70-99) Test 10/09/18 00:20 10/09/18 04:33 10/09/18 04:55 10/09/18 07:45 Vancomycin Level Trough 12.3 mcg/mL (10.0-20.0) Vancomycin Last Dose Date Vancomycin Last Dose Time White Blood Count 14.8 x10^3/uL (4.0-11.0) Red Blood Count 3.12 x10^6/uL (4.30-5.70) Hemoglobin 9.7 g/dL (13.0-17.5) Hematocrit 28.3 % (39.0-53.0) Mean Corpuscular Volume 91 fL (79-100) Mean Corpuscular Hemoglobin 31 pg (25-35) Mean Corpuscular Hemoglobin Concent 34 g/dL (31-37) Red Cell Distribution Width 13.8 % (11.5-14.5) Platelet Count 344 x10^3/uL (140-400) Neutrophils (%) (Auto) 87 % (31-73) Lymphocytes (%) (Auto) 6 % (24-48) Monocytes (%) (Auto) 7 % (0-9) Eosinophils (%) (Auto) 0 % (0-3) Basophils (%) (Auto) 0 % (0-3) Neutrophils # (Auto) 12.8 x10^3uL (1.8-7.7) Lymphocytes # (Auto) 0.9 x10^3/uL (1.0-4.8) Monocytes # (Auto) 1.0 x10^3/uL (0.0-1.1) Eosinophils # (Auto) 0.0 x10^3/uL (0.0-0.7) Basophils # (Auto) 0.0 x10^3/uL (0.0-0.2) Sodium Level 129 mmol/L (136-145) Potassium Level 4.6 mmol/L (3.5-5.1) Chloride Level 95 mmol/L (98-107) Carbon Dioxide Level 27 mmol/L (21-32) Anion Gap 7 (6-14) Blood Urea Nitrogen 19 mg/dL (8-26) Creatinine 0.9 mg/dL (0.7-1.3) Estimated GFR (Cockcroft-Gault) 89.0 Glucose Level 472 mg/dL (70-99) Calcium Level 8.1 mg/dL (8.5-10.1) Glucose (Fingerstick) 399 mg/dL (70-99) Micro ANAEROBIC-AEROBIC CULTURE PENDING ANAEROBIC RES 1 PENDING AEROBIC CULT Preliminary Preliminary report AEROBIC RES 1 Preliminary Gram negative rods 4+ AEROBIC RES 2 Preliminary Gram negative rods 4+ AEROBIC RES 3 Preliminary Comment Staphylococcus species 4+ AEROBIC RES 4 Preliminary Streptococcus species 4+ GRAM STAIN Final Final report GRAM STAIN RES 1 Final Comment CONTINUED ON NEXT PAGE RUN DATE: 10/08/18 PAGE 2 RUN TIME: 1219 [facility] [address] [place] [address] Rashi Crowe M.D., [employer] Work[employer] SPEC: [id number] PATIENT: CRIS DONOHUE [id number] ( Continued) Procedure Result GRAM STAIN RES 1 Final (continued) No white blood cells seen. GRAM STAIN RES 2 Final Comment Moderate number of gram positive cocci. Performed at: DA - [facility] [address], [place], [place] [id number] Chief Strategy Officer: ANDRY Yancey MD, Phone: [phone] Objective Assessment Left toes gangrene s/p TMA Left foot cellulitis Leukocytosis Poorly controlled DM PVD Tobaccoism Plan Plan of Care helen and karena d/w vascular surgery, may need BKA, supportive care BS control quit smoking care home prognosis poor sec to non compliance GAURI BECERRA MD Oct 09, 2018 08:53
[2018-10-09] MEDS: PIOGLITAZONE 15 MG TABLET. PO SCH (09:33)
[2018-10-09] MEDS: LORazepam 1 MG TABLET PO SCH ×2 (09:33→20:23)
[2018-10-09] MEDS: DULoxetine HCL 30 MG CAPSULE.DR PO SCH (09:33)
[2018-10-09] MEDS: LACTOBACILLUS RHAMNOSUS GG 1 CAPSULE. PO SCH ×2 (09:33→20:23)
[2018-10-09] MEDS: INSULIN LISPRO 300 UNITS/3 ML INSULN.PEN. SQ SCH ×3 (09:39→18:40)
--- NOTE | 2018-10-09 10:16 | PDOC ---
Progress Note-Wound Care SUBJECTIVE Mr. Augustin says he feels fine this morning. No new complaints. OBJECTIVE Vital Signs Vital Signs Date Time Temp Pulse Resp B/P (MAP) Pulse Ox O2 Delivery O2 Flow Rate FiO2 10/08/18 08:09 97.7 91 18 99/42 100 Simple Mask 8 97.7 Vital Signs Date Time Temp Pulse Resp B/P (MAP) Pulse Ox O2 Delivery O2 Flow Rate FiO2 10/09/18 07:00 97.9 99 18 104/66 (79) 93 Room Air 97.9 10/08/18 08:24 8 Physical Exam: Awake and alert. In no acute distress. Oriented 3. He participates cogently in conversation. Demonstrates understanding of his situation. ASSESSMENT Gangrenous diabetic foot ulcer status post partial amputation. Findings in surgery of persistent signs of gangrene in remaining tissure. Mr. Augustin would benefit from hyperbaric treatments to interrupt the progression of infection improving his avoiding or limiting lower extremity amputation. I recommend BID HBO treatments today and over the weekend with re-evaluation on FridayOct 12. PLAN HBO BID at 2.4 ROGER for 90 minutes with appropriate air breaks. BALAJI RODRIGUEZ MD Oct 09, 2018 10:16
--- NOTE | 2018-10-09 10:29 | PDOC ---
Provider Note Provider Note POD # 1 post op open nearly Syme type amputation lt foot Had purulence up plantar tendon sheath at end of op Exam: wound clean, no further purulence even with pressing on sole of foot Imp: appears clean Plan: Agree with HBO, wound VAC after HBO if no significant bleeding Will cont. to follow ALPHONSO SNELL MD Oct 09, 2018 10:29
[2018-10-09 14:16] VITALS: BP 140/81
[2018-10-09 19:00] VITALS: BP 161/86
--- NOTE | 2018-10-09 19:56 | PN ---
DATE: 10/09/2018 LOCATION: He is in room 578. SUBJECTIVE: The patient is awake and alert, eating breakfast. OBJECTIVE: VITAL SIGNS: Stable. He is afebrile. O2 sats are good on room air. CHEST: Clear. HEART: Regular. ABDOMEN: Benign. EXTREMITIES: Left foot is bandaged. LABORATORY DATA: Sodium is 129 this morning with sugar elevated at 472. White count is down to 14,800 and hemoglobin has dipped to 9.7. His left shift is improving. Lower extremity ultrasound on the left done yesterday shows severe atherosclerotic disease with mostly monophasic waveforms, elevated velocities identified, particularly at the proximal to mid superficial femoral artery and peroneal artery compatible with high grade stenoses, anterior tibial and dorsalis pedis arteries are not visualized, compatible with occlusion. ASSESSMENT: 1. Diabetic foot infection. 2. Status post transmetatarsal amputation with extension of the infection up to the ankle per Surgery. 3. Leukocytosis. 4. Peripheral vascular disease. 5. Tobaccoism. 6. Poorly controlled diabetes mainly due to the patient's noncompliance with multiple food items in the room that are not compatible with good diabetic control. PLAN: Continue antibiotic therapy. Vascular Surgery at this point is wanting to watch through the weekend to see if there is improvement and notes that they will not have to go to a [id number] amputation on the left, would feel like this is a distinct possibility. Discussed with him about adjust eating once brought to the room. PAT MOSHER MD DR: MEHRAN/denise JOB#: [id number] / [id number]
[2018-10-09] MEDS: INSULIN GLARGINE 300 UNITS/3 ML INSULN.PEN. SQ SCH (20:31)
[2018-10-09 23:13] LABS: HEMOGLOBIN A1C 10.1 % (4.8-5.6)
[2018-10-09 23:28] VITALS: BP 141/83
[2018-10-10] MEDS: VANCOMYCIN 1.25 GM in IV NORMAL SALINE 250ML 250 ML IV SCH ×2 (01:45→13:36)
[2018-10-10] MEDS: oxyCODONE/APAP 10/325 1 TAB TABLET PO PRN ×4 (01:45→18:26)
[2018-10-10 03:30] VITALS: BP 146/73
[2018-10-10] MEDS: PIPERACILLIN/TAZOBACTAM 3.375 GM in IV NORMAL SALINE 50ML 50 ML IV SCH ×3 (05:56→18:27)
[2018-10-10 07:00] VITALS: BP 124/72
[2018-10-10] MEDS: INSULIN LISPRO 300 UNITS/3 ML INSULN.PEN. SQ SCH ×3 (08:00→18:32)
[2018-10-10] MEDS: LACTOBACILLUS RHAMNOSUS GG 1 CAPSULE. PO SCH ×2 (11:38→20:16)
[2018-10-10] MEDS: PIOGLITAZONE 15 MG TABLET. PO SCH (11:39)
[2018-10-10] MEDS: DULoxetine HCL 30 MG CAPSULE.DR PO SCH (11:39)
[2018-10-10] MEDS: LORazepam 1 MG TABLET PO SCH ×2 (11:39→20:16)
[2018-10-10 11:56] VITALS: BP 139/72
--- NOTE | 2018-10-10 12:35 | PDOC ---
Infectious Disease Note Subjective Subjective Feeling alright Dressing recently changed No F/C/S/N/V/D ROS ROS per HPI otherwise neg Vital Sign Vital Signs Vital Signs Date Time Temp Pulse Resp B/P (MAP) Pulse Ox O2 Delivery O2 Flow Rate FiO2 10/10/18 11:56 99.1 108 18 99.1 10/10/18 11:39 Room Air 10/10/18 07:00 124/72 (89) 99 Physical Exam PHYSICAL EXAM GENERAL: Propped up in bed, alert, NAD HEENT: Oral cavity clear, edentulous NECK: Supple LUNGS: Clear. HEART: S1 and S2 regular. ABDOMEN: Soft, nontender EXTREMITIES: No edema or cyanosis. Left foot dressing dry SKIN: warm without rash NEUROLOGIC: Alert, oriented PIV ok Labs Lab Laboratory Tests Test 10/09/18 12:42 10/09/18 15:14 10/09/18 17:36 10/09/18 20:21 Glucose (Fingerstick) 327 mg/dL (70-99) 267 mg/dL (70-99) 192 mg/dL (70-99) 207 mg/dL (70-99) Test 10/10/18 07:25 10/10/18 08:38 10/10/18 10:53 Glucose (Fingerstick) 233 mg/dL (70-99) 268 mg/dL (70-99) 287 mg/dL (70-99) Micro Microbiology 10/07/18 Blood Culture - Preliminary, Resulted NO GROWTH AFTER 2 DAYS Objective Assessment 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 MRSA, Citrobacter & Klebsiella from 10/05. GPC & GNR from 10/08 Left foot cellulitis Leukocytosis Poorly controlled DM PVD Tobaccoism Plan Plan of Care vanc and Zosyn Trough 12.3 Monitor las/renal function BS control Smoking cessation halfway prognosis poor sec to non compliance Attending Co-Sign The patient was seen and interviewed as well as examined at the bedside. The chart was reviewed. The case was discussed. Agree with the plan of care. MAGGI NEWMAN APRN Oct 10, 2018 12:35 GAURI BECERRA MD Oct 10, 2018 17:09
[2018-10-10 13:16] LABS: BASO % 1 % (0-3); EOS # 0.2 x10^3/uL (0.0-0.7); EOS % 2 % (0-3); HEMATOCRIT 27.4 % (39.0-53.0); HEMOGLOBIN 9.5 g/dL (13.0-17.5); LYMPH # 1.1 x10^3/uL (1.0-4.8); LYMPH % 11 % (24-48); MEAN CORPUSCULAR HEMOGLOBIN 31 pg (25-35); MEAN CORPUSCULAR HGB CONC 35 g/dL (31-37); MEAN CORPUSCULAR VOLUME 90 fL (79-100); MONO # 0.8 x10^3/uL (0.0-1.1); MONO % 7 % (0-9); NEUT # 8.3 x10^3uL (1.8-7.7); NEUT % 80 % (31-73); PLATELET COUNT 356 x10^3/uL (140-400); RED BLOOD COUNT 3.05 x10^6/uL (4.30-5.70); RED CELL DISTRIBUTION WIDTH 13.5 % (11.5-14.5); WHITE BLOOD COUNT 10.3 x10^3/uL (4.0-11.0)
--- NOTE | 2018-10-10 14:22 | PDOC ---
Provider Note Provider Note pt without complaints' Dressing left forefoot dry A: status post left forefoot amputation, open P: cont. HBO therapy BID, wound care. Following. KWAME GOMEZ II, MD Oct 10, 2018 14:22
[2018-10-10] MEDS: VANCOMYCIN PER PHARMACY MC PRN (16:16)
[2018-10-10 17:10] VITALS: BP 141/74
[2018-10-10 19:00] VITALS: BP 135/77
--- NOTE | 2018-10-10 20:10 | PN ---
DATE: 10/10/2018 LOCATION: Room 578. SUBJECTIVE: The patient currently is receiving hyperbaric oxygen therapy. OBJECTIVE: VITAL SIGNS: Stable. He was afebrile. LABORATORY DATA: Culture showed MRSA, Klebsiella, Citrobacter and Enterococcus from the initial foot cultures. ASSESSMENT: 1. Diabetic foot infection with extension as noted in surgical note. 2. Diabetes, poor control. 3. Peripheral arterial disease. PLAN: Continue present care with antibiotics, hyperbaric oxygen and make further determination the beginning of next week as to whether a [id number] amputation is required or not. PAT MOSHER MD DR: MEHRAN/denise JOB#: [id number] / [id number]
[2018-10-10] MEDS: INSULIN GLARGINE 300 UNITS/3 ML INSULN.PEN. SQ SCH (20:44)
[2018-10-10 23:00] VITALS: BP_SYST 129; BP_SYST 169; BP_DIAS 73; BP_DIAS 85
[2018-10-11] MEDS: PIPERACILLIN/TAZOBACTAM 3.375 GM in IV NORMAL SALINE 50ML 50 ML IV SCH ×4 (00:08→17:17)
[2018-10-11] MEDS: VANCOMYCIN 1.25 GM in IV NORMAL SALINE 250ML 250 ML IV SCH ×2 (00:54→14:06)
[2018-10-11 03:00] VITALS: BP 140/72
[2018-10-11] MEDS: oxyCODONE/APAP 10/325 1 TAB TABLET PO PRN ×3 (06:24→21:40)
[2018-10-11 07:00] VITALS: BP 129/67
[2018-10-11] MEDS: LORazepam 1 MG TABLET PO SCH ×2 (08:04→21:40)
[2018-10-11] MEDS: LACTOBACILLUS RHAMNOSUS GG 1 CAPSULE. PO SCH ×2 (08:04→21:41)
[2018-10-11] MEDS: DULoxetine HCL 30 MG CAPSULE.DR PO SCH (08:04)
[2018-10-11] MEDS: PIOGLITAZONE 15 MG TABLET. PO SCH (08:04)
[2018-10-11] MEDS: INSULIN LISPRO 300 UNITS/3 ML INSULN.PEN. SQ SCH ×3 (08:10→17:25)
--- NOTE | 2018-10-11 10:21 | PDOC ---
Infectious Disease Note Subjective Subjective Feeling alright Denies pain No fevers ROS ROS per HPI Vital Sign Vital Signs Vital Signs Date Time Temp Pulse Resp B/P (MAP) Pulse Ox O2 Delivery O2 Flow Rate FiO2 10/11/18 08:00 Room Air 8.0 10/11/18 07:00 98.6 97 18 129/67 (87) 94 98.6 Physical Exam PHYSICAL EXAM GENERAL: Resting quietly, appears comfortable HEENT: Oral cavity clear, edentulous NECK: Supple LUNGS: Clear. HEART: S1 and S2 regular. ABDOMEN: Soft, nontender EXTREMITIES: No edema or cyanosis. Left foot wound vac in place SKIN: warm without rash NEUROLOGIC: Arouses easily to name, responds appropriately Labs Lab Laboratory Tests Test 10/10/18 10:53 10/10/18 12:48 10/10/18 15:01 10/10/18 17:19 Glucose (Fingerstick) 287 mg/dL (70-99) 281 mg/dL (70-99) 270 mg/dL (70-99) White Blood Count 10.3 x10^3/uL (4.0-11.0) Red Blood Count 3.05 x10^6/uL (4.30-5.70) Hemoglobin 9.5 g/dL (13.0-17.5) Hematocrit 27.4 % (39.0-53.0) Mean Corpuscular Volume 90 fL (79-100) Mean Corpuscular Hemoglobin 31 pg (25-35) Mean Corpuscular Hemoglobin Concent 35 g/dL (31-37) Red Cell Distribution Width 13.5 % (11.5-14.5) Platelet Count 356 x10^3/uL (140-400) Neutrophils (%) (Auto) 80 % (31-73) Lymphocytes (%) (Auto) 11 % (24-48) Monocytes (%) (Auto) 7 % (0-9) Eosinophils (%) (Auto) 2 % (0-3) Basophils (%) (Auto) 1 % (0-3) Neutrophils # (Auto) 8.3 x10^3uL (1.8-7.7) Lymphocytes # (Auto) 1.1 x10^3/uL (1.0-4.8) Monocytes # (Auto) 0.8 x10^3/uL (0.0-1.1) Eosinophils # (Auto) 0.2 x10^3/uL (0.0-0.7) Basophils # (Auto) 0.0 x10^3/uL (0.0-0.2) Test 10/10/18 19:33 10/11/18 07:16 Glucose (Fingerstick) 216 mg/dL (70-99) 213 mg/dL (70-99) Micro Microbiology 10/07/18 Blood Culture - Preliminary, Resulted NO GROWTH AFTER 3 DAYS Objective Assessment 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 MRSA, Citrobacter & Klebsiella from 10/05. 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 Assessment and plan was formulated with CLINICAL INFORMATICS PHYSICIAN. MAGGI NEWMAN APRN Oct 11, 2018 10:21 SON BECERRA MD Oct 11, 2018 14:36
[2018-10-11 10:41] VITALS: BP 130/62
[2018-10-11 15:00] VITALS: BP 125/60
[2018-10-11 19:00] VITALS: BP 164/79
--- NOTE | 2018-10-11 21:42 | PN ---
DATE: 10/11/2018 LOCATION: He is in room 578. SUBJECTIVE: The patient is awake and alert. Denies any increased pain, was [facility]. The wound looked a little better and he was encouraged and hopeful that there is no further surgery needed. OBJECTIVE: VITAL SIGNS: Stable. He is afebrile. White count is decreased to normal at 10,300, hemoglobin is at 9.5. Sugars are primarily in the 200s over the last 24 hours. CHEST: Clear. HEART: Regular. ABDOMEN: Benign. SKIN: Wound VAC is in place on his amputation site on the foot. ASSESSMENT: 1. Diabetic foot infection with extension as noted in surgical notes. 2. Diabetes, poor control. 3. Peripheral arterial disease. PLAN: Continue present oxygen, antibiotics, hyperbaric oxygen with further determination on further surgery needed as we get into next week. PAT MOSHER MD DR: MEHRAN/denise JOB#: [id number] / [id number]
[2018-10-11] MEDS: INSULIN GLARGINE 300 UNITS/3 ML INSULN.PEN. SQ SCH (21:48)
[2018-10-11 23:00] VITALS: BP 144/71
[2018-10-12] MEDS: PIPERACILLIN/TAZOBACTAM 3.375 GM in IV NORMAL SALINE 50ML 50 ML IV SCH ×2 (00:03→05:47)
[2018-10-12] MEDS: VANCOMYCIN 1.25 GM in IV NORMAL SALINE 250ML 250 ML IV SCH ×2 (01:22→12:07)
[2018-10-12 03:00] VITALS: BP 150/87
[2018-10-12] MEDS: oxyCODONE/APAP 10/325 1 TAB TABLET PO PRN ×3 (05:47→18:39)
[2018-10-12 07:00] VITALS: BP 156/78
[2018-10-12] MEDS: LACTOBACILLUS RHAMNOSUS GG 1 CAPSULE. PO SCH ×2 (08:13→21:49)
[2018-10-12] MEDS: DULoxetine HCL 30 MG CAPSULE.DR PO SCH (08:13)
[2018-10-12] MEDS: LORazepam 1 MG TABLET PO SCH ×2 (08:13→21:49)
[2018-10-12] MEDS: PIOGLITAZONE 15 MG TABLET. PO SCH (08:13)
[2018-10-12] MEDS: INSULIN LISPRO 300 UNITS/3 ML INSULN.PEN. SQ SCH ×3 (08:19→17:07)
--- NOTE | 2018-10-12 08:51 | PDOC ---
PROGRESS NOTES Subjective Subjective Pt resting comfortably in bed, with no complaints. Eating breakfast. Wound vac malfunctioned yesterday evening and was removed, to be placed again today. Pt had angioplasty in 01/2018. He reports arterial work on both legs in past. Arterial US this visit showing poor left leg circulation. Objective Objective Vital Signs Date Time Temp Pulse Resp B/P (MAP) Pulse Ox O2 Delivery O2 Flow Rate FiO2 10/12/18 07:00 98.0 95 20 156/78 (104) 95 Room Air 98.0 10/12/18 03:00 8.0 Intake and Output 10/12/18 07:00 Intake Total 850 ml Output Total 2800 ml Balance -1950 ml Intake Oral 850 ml Output Urine Total 2800 ml # Voids 2 Physical Exam Physical Exam Awake, alert, in no apparent distress Lips dry BL radial pulses strong Left TMA site with little pink granulation tissue, some sloughed tissue and some necrotic tissue at wound edges and lateral wound base. Plan Plan of Care POD 4 of left TMA - wound with poor signs of healing, I discussed at length with the patient the prognosis of this with patients poor circulation and our recommendation for BKA , he is adamant that he will quit smoking, better control his diabetes, and take better care of himself. He is not ready for BKA and elects to continue wound therapy and watch healing. I discussed all risks of this with him and he reports "if down the road I still need a BKA we can do it then". With this, continue vac therapy and IV abx per ID. We will continue to follow pt at this point. Comment Review of Relevant I have reviewed the following items ludwig (where applicable) has been applied. Labs Laboratory Tests Test 10/10/18 10:53 10/10/18 12:48 10/10/18 15:01 10/10/18 17:19 Glucose (Fingerstick) 287 mg/dL (70-99) 281 mg/dL (70-99) 270 mg/dL (70-99) White Blood Count 10.3 x10^3/uL (4.0-11.0) Red Blood Count 3.05 x10^6/uL (4.30-5.70) Hemoglobin 9.5 g/dL (13.0-17.5) Hematocrit 27.4 % (39.0-53.0) Mean Corpuscular Volume 90 fL (79-100) Mean Corpuscular Hemoglobin 31 pg (25-35) Mean Corpuscular Hemoglobin Concent 35 g/dL (31-37) Red Cell Distribution Width 13.5 % (11.5-14.5) Platelet Count 356 x10^3/uL (140-400) Neutrophils (%) (Auto) 80 % (31-73) Lymphocytes (%) (Auto) 11 % (24-48) Monocytes (%) (Auto) 7 % (0-9) Eosinophils (%) (Auto) 2 % (0-3) Basophils (%) (Auto) 1 % (0-3) Neutrophils # (Auto) 8.3 x10^3uL (1.8-7.7) Lymphocytes # (Auto) 1.1 x10^3/uL (1.0-4.8) Monocytes # (Auto) 0.8 x10^3/uL (0.0-1.1) Eosinophils # (Auto) 0.2 x10^3/uL (0.0-0.7) Basophils # (Auto) 0.0 x10^3/uL (0.0-0.2) Test 10/10/18 19:33 10/11/18 07:16 10/11/18 11:22 10/11/18 16:25 Glucose (Fingerstick) 216 mg/dL (70-99) 213 mg/dL (70-99) 94 mg/dL (70-99) 90 mg/dL (70-99) Test 10/12/18 01:17 10/12/18 07:39 Glucose (Fingerstick) 187 mg/dL (70-99) 338 mg/dL (70-99) Laboratory Tests Test 10/11/18 11:22 10/11/18 16:25 10/12/18 01:17 10/12/18 07:39 Glucose (Fingerstick) 94 mg/dL (70-99) 90 mg/dL (70-99) 187 mg/dL (70-99) 338 mg/dL (70-99) Microbiology 10/07/18 Blood Culture - Preliminary, Resulted NO GROWTH AFTER 4 DAYS 10/08/18 Anaerobic/Aerobic Culture, Resulted Pending 10/08/18 Anaerobic Culture Result 1 (BRADEN), Resulted Pending 10/08/18 Aerobic Culture - Preliminary, Resulted 10/08/18 Aerobic Culture Result 1 (BRADEN) - Preliminary, Resulted 10/08/18 Aerobic Culture Result 2 (BRADEN) - Preliminary, Resulted 10/08/18 Aerobic Culture Result 3 (BRADEN) - Preliminary, Resulted 10/08/18 Antimicrobic Susceptibility - Preliminary, Resulted 10/08/18 Gram Stain - Final, Resulted 10/08/18 Gram Stain Result 1 (BRADEN) - Final, Resulted 10/08/18 Gram Stain Result 2 (BRADEN) - Final, Resulted 10/08/18 Gram Stain Result 3 (BRADEN) - Final, Resulted Medications Current Medications Lorazepam (Ativan) 1 mg BID PO Last administered on 10/12/18at 08:13; Start at 21:00 Oxycodone/ Acetaminophen (Percocet 10/325) 2 tab PRN Q4HRS PRN PO PAIN Last administered on 10/12/18at 05:47; Start 10/05/18 at 16:45 Non-Formulary Medication (Dextroamphetamine/ Amphetamine (Adderall Xr 30 Mg Capsule)) 1 cap DAILY PO ; Start 10/06/18 at 09:00; Stop 10/07/18 at 13:09; Status DC Non-Formulary Medication (Difluprednate (Durezol)) 1 drop Q2HR W/A OP ; Start 10/05/18 at 18:00; Stop 10/06/18 at 17:22; Status DC Insulin Glargine (Lantus) 50 units QHS SQ Last administered on 10/11/18at 21:48 ; Start 10/05/18 at 21:00 Insulin Human Lispro (HumaLOG) 60 units TIDWMEALS SQ Last administered on 10/12at 08:19; Start 10/05/18 at 17:00 Pioglitazone HCl (Actos) 15 mg DAILY PO Last administered on 10/12/18at 08:13; Start 10/06/18 at 09:00 Piperacillin Sod/ Tazobactam Sod 3.375 gm/Sodium Chloride 50 ml @ 100 mls/hr Q6HRS IV Last administered on 10/12/18at 05:47; Start 10/06/18 at 00:00 Vancomycin HCl (Vanco Per Pharmacy) 1 each PRN DAILY PRN MC SEE COMMENTS Last administered on 10/10/18at 16:16; Start 10/05/18 at 23:15 Vancomycin HCl 2 gm/Sodium Chloride 500 ml @ 250 mls/hr 1X ONCE IV Last administered on 10/06/18at 01:08; Start 10/05/18 at 23:30; Stop 10/06/18 at 01 :29; Status DC Vancomycin HCl 1.25 gm/Sodium Chloride 250 ml @ 167 mls/hr Q12H IV Last administered on 10/12/18at 01:22; Start 10/06/18 at 13:00 Vancomycin HCl (Vancomycin Trough Level) 1 each 1X ONCE MC Last administered on 10/07/18at 12:30; Start 10/07/18 at 12:30; Stop 10/07/18 at 12:31; Status DC Lactobacillus Rhamnosus (Culturelle) 1 cap BID PO Last administered on at 08:13; Start 10/06/18 at 21:00 Bacitracin 98378 unit/Sodium Chloride 500 ml @ 500 mls/hr 1X ONCE IRR ; Start 10/07/18 at 14:30; Stop 10/07/18 at 15:29; Status DC Sevoflurane (Ultane) 30 ml STK-MED ONCE IH ; Start 10/07/18 at 14:53; Stop at 14:54; Status DC Midazolam HCl (Versed) 2 mg STK-MED ONCE .ROUTE ; Start 10/07/18 at 14:53; Stop 10/07/18 at 14:54; Status DC Fentanyl Citrate (Fentanyl 2ml Vial) 100 mcg STK-MED ONCE .ROUTE ; Start at 14:53; Stop 10/07/18 at 14:54; Status DC Dexamethasone Sodium Phosphate (Decadron) 20 mg STK-MED ONCE .ROUTE ; Start at 14:53; Stop 10/07/18 at 14:54; Status DC Ondansetron HCl (Zofran) 4 mg STK-MED ONCE .ROUTE ; Start 10/07/18 at 14:54; Stop 10/07/18 at 14:55; Status DC Propofol 0 ml @ As Directed STK-MED ONCE IV ; Start 10/07/18 at 14:54; Stop at 14:55; Status DC Lidocaine HCl (Xylocaine-Mpf 1% 5ml Vial) 5 ml STK-MED ONCE .ROUTE ; Start at 07:07; Stop 10/08/18 at 07:08; Status DC Propofol 20 ml @ As Directed STK-MED ONCE IV ; Start 10/08/18 at 07:07; Stop 10/08/18 at 07:08; Status DC Dexamethasone Sodium Phosphate (Decadron) 20 mg STK-MED ONCE .ROUTE ; Start at 07:07; Stop 10/08/18 at 07:08; Status DC Famotidine (Pepcid Vial) 20 mg STK-MED ONCE .ROUTE ; Start 10/08/18 at 07:07; Stop 10/08/18 at 07:08; Status DC Ondansetron HCl (Zofran) 4 mg STK-MED ONCE .ROUTE ; Start 10/08/18 at 07:07; Stop 10/08/18 at 07:08; Status DC Fentanyl Citrate (Fentanyl 2ml Vial) 100 mcg STK-MED ONCE .ROUTE ; Start at 07:07; Stop 10/08/18 at 07:08; Status DC Midazolam HCl (Versed) 2 mg STK-MED ONCE .ROUTE ; Start 10/08/18 at 07:07; Stop 10/08/18 at 07:08; Status DC Phenylephrine HCl (PHENYLEPHRINE in 0.9% NACL PF) 1 mg STK-MED ONCE IV ; Start 10/08/18 at 07:42; Stop 10/08/18 at 07:43; Status DC Sevoflurane (Ultane) 30 ml STK-MED ONCE IH ; Start 10/08/18 at 08:03; Stop at 08:04; Status DC Morphine Sulfate (Morphine Sulfate) 2 mg PRN Q2HR PRN IV PAIN; Start 10/08/18 at 08:15 Duloxetine HCl (Cymbalta) 30 mg DAILY PO Last administered on 10/12/18at 08:13 ; Start 10/08/18 at 09:00 Vancomycin HCl (Vancomycin Trough Level) 1 each 1X ONCE MC ; Start 10/09/18 at 00:30; Stop 10/09/18 at 00:31; Status DC Active Scripts Active Ativan (Lorazepam) 1 Mg Tablet 1 Mg PO BID 5 Days Reported Durezol (Difluprednate) 5 Ml Drops 1 Drop OP Q2HR W/A Tresiba Flextouch U-100 (Insulin Degludec) 100 Unit/1 Ml Insuln.pen 50 Unit SQ HS Actos (Pioglitazone Hcl) 15 Mg Tablet 1 Tab PO DAILY Oxycodone-Acetaminophen 10-325 (Oxycodone Hcl/Acetaminophen) 1 Each Tablet 2 Tab PO PRN Q4HRS PRN Adderall Xr 30 Mg Capsule (Dextroamphetamine/Amphetamine) 30 Mg Cap.er.24h 1 Cap PO DAILY Humalog (Insulin Lispro) 100 Unit/1 Ml Cartridge 60 Unit SQ TIDBFRMEAL Vitals/I & O Vital Sign - Last 24 Hours 10/11/18 10/11/18 10/11/18 10/11/18 10:41 15:00 15:46 16:46 Temp 98.2 98.1 98.2 98.1 Pulse 94 95 Resp 18 18 18 18 B/P (MAP) 130/62 (84) 125/60 (81) Pulse Ox 94 95 95 O2 Delivery Room Air Room Air Room Air O2 Flow Rate 8.0 8.0 10/11/18 10/11/18 10/11/18 10/11/18 19:00 20:17 21:40 23:00 Temp 98.9 99.0 98.9 99.0 Pulse 105 105 Resp 20 18 B/P (MAP) 164/79 (107) 144/71 (95) Pulse Ox 99 95 99 O2 Delivery Room Air Room Air Room Air Room Air O2 Flow Rate 8.0 8.0 10/12/18 10/12/18 10/12/18 10/12/18 03:00 05:47 06:47 07:00 Temp 98.4 98.0 98.4 98.0 Pulse 104 95 Resp 18 20 B/P (MAP) 150/87 (108) 156/78 (104) Pulse Ox 97 97 97 95 O2 Delivery Room Air Room Air Room Air Room Air O2 Flow Rate 8.0 Intake and Output 10/11/18 10/11/18 10/12/18 15:00 23:00 07:00 Intake Total 550 ml 300 ml Output Total 900 ml 1400 ml 500 ml Balance -350 ml -1100 ml -500 ml PETRA GLORIA Oct 12, 2018 08:51
--- NOTE | 2018-10-12 09:44 | PDOC ---
Infectious Disease Note Subjective: Subjective Feeling alright Denies pain No fevers ROS: ROS Negative except for above. Vital Signs: Vital Signs Vital Signs Date Time Temp Pulse Resp B/P (MAP) Pulse Ox O2 Delivery O2 Flow Rate FiO2 10/12/18 07:00 98.0 95 20 156/78 (104) 95 Room Air 98.0 10/12/18 03:00 8.0 Physical Exam: PHYSICAL EXAM GENERAL: Resting quietly, appears comfortable HEENT: Oral cavity clear, edentulous NECK: Supple LUNGS: Clear. HEART: S1 and S2 regular. ABDOMEN: Soft, nontender EXTREMITIES: No edema or cyanosis. Left foot wound vac in place SKIN: warm without rash NEUROLOGIC: Arouses easily to name, responds appropriately Medications: Inpatient Meds: Current Medications Medications (Trade) Dose Ordered Sig/Tory Start Time Stop Time Status Last Admin Dose Admin Bacitracin 51151 unit/Sodium Chloride 500 ml @ 500 mls/hr 1X ONCE 10/07/18 14:30 10/07/18 15:29 DC Dexamethasone Sodium Phosphate (Decadron) 20 mg STK-MED ONCE 10/08/18 07:07 10/08/18 07:08 DC Duloxetine HCl (Cymbalta) 30 mg DAILY 10/08/18 09:00 10/12/18 08:13 30 MG Famotidine (Pepcid Vial) 20 mg STK-MED ONCE 10/08/18 07:07 10/08/18 07:08 DC Fentanyl Citrate (Fentanyl 2ml Vial) 100 mcg STK-MED ONCE 10/08/18 07:07 10/08/18 07:08 DC Insulin Glargine (Lantus) 50 units QHS 10/05/18 21:00 10/11/18 21:48 50 UNITS Insulin Human Lispro (HumaLOG) 60 units TIDWMEALS 10/05/18 17:00 10/12/18 08:19 60 UNITS Lactobacillus Rhamnosus (Culturelle) 1 cap BID 10/06/18 21:00 10/12/18 08:13 1 CAP Lidocaine HCl (Xylocaine-Mpf 1% 5ml Vial) 5 ml STK-MED ONCE 10/08/18 07:07 10/08/18 07:08 DC Lorazepam (Ativan) 1 mg BID 10/05/18 21:00 10/12/18 08:13 1 MG Midazolam HCl (Versed) 2 mg STK-MED ONCE 10/08/18 07:07 10/08/18 07:08 DC Morphine Sulfate (Morphine Sulfate) 2 mg PRN Q2HR PRN 10/08/18 08:15 Non-Formulary Medication (Dextroamphetamine/ Amphetamine (Adderall Xr 30 Mg Capsule)) 1 cap DAILY 10/06/18 09:00 10/07/18 13:09 DC Non-Formulary Medication (Difluprednate (Durezol)) 1 drop Q2HR W/A 10/05/18 18:00 10/06/18 17:22 DC Ondansetron HCl (Zofran) 4 mg STK-MED ONCE 10/08/18 07:07 10/08/18 07:08 DC Oxycodone/ Acetaminophen (Percocet 10/325) 2 tab PRN Q4HRS PRN 10/05/18 16:45 10/12/18 05:47 2 TAB Phenylephrine HCl (PHENYLEPHRINE in 0.9% NACL PF) 1 mg STK-MED ONCE 10/08/18 07:42 10/08/18 07:43 DC Pioglitazone HCl (Actos) 15 mg DAILY 10/06/18 09:00 10/12/18 08:13 15 MG Piperacillin Sod/ Tazobactam Sod 3.375 gm/Sodium Chloride 50 ml @ 100 mls/hr Q6HRS 10/06/18 00:00 10/12/18 05:47 100 MLS/HR Propofol 20 ml @ As Directed STK-MED ONCE 10/08/18 07:07 10/08/18 07:08 DC Sevoflurane (Ultane) 30 ml STK-MED ONCE 10/08/18 08:03 10/08/18 08:04 DC Vancomycin HCl (Vanco Per Pharmacy) 1 each PRN DAILY PRN 10/05/18 23:15 10/10/18 16:16 1 EACH Vancomycin HCl (Vancomycin Trough Level) 1 each 1X ONCE 10/09/18 00:30 10/09/18 00:31 DC Vancomycin HCl 1.25 gm/Sodium Chloride 250 ml @ 167 mls/hr Q12H 10/06/18 13:00 10/12/18 01:22 167 MLS/HR Vancomycin HCl 2 gm/Sodium Chloride 500 ml @ 250 mls/hr 1X ONCE 10/05/18 23:30 10/06/18 01:29 DC 10/06/18 01:08 250 MLS/HR Labs: Lab Laboratory Tests Test 10/11/18 11:22 10/11/18 16:25 10/12/18 01:17 10/12/18 07:39 Glucose (Fingerstick) 94 mg/dL (70-99) 90 mg/dL (70-99) 187 mg/dL (70-99) 338 mg/dL (70-99) Micro RUN DATE: 10/11/18 PAGE 1 RUN TIME: 1611 [facility] [address] [place] [address] Rashi Crowe M.D., Contract Law Specialist PATIENT: CRIS DONOHUE ACCT: [id number] LOC: [address] [place] [address] U : [id number] AGE/SX: 53/M ROOM: 578 REG : 10/05/[address]: PAT MOSHER MD : 1965 BED: 1 DIS : STATUS: ADM IN TLOC: SPEC #: [id number] GARY: 10/08/18 STATUS: RES REQ #: [id number] RECD: 10/08/[address]: PAT MOSHER MD SOURCE: FOOT ENTR: 10/08/[address] [facility] [address]: BRYAN CHEEMA II, MD [facility]: KWAME HERRERA II, MD,GAURI MEDEROS,ONDINA ARAUJO,JACQUELINE Agrawal MD ORDERED: ANAER/AEROB/GS Procedure Result ANAEROBIC-AEROBIC CULTURE PENDING ANAEROBIC RES 1 PENDING AEROBIC CULT Preliminary Preliminary report AEROBIC RES 1 Preliminary Klebsiella pneumoniae 4+ AEROBIC RES 2 Preliminary Comment Methicillin - resistant Staphylococcus aureus 4+ Based on resistance to oxacillin this isolate would be resistant to all currently available beta-lactam antimicrobial agents, with the exception of the newer cephalosporins with anti-MRSA activity, such as Ceftaroline AEROBIC RES 3 Preliminary Streptococcus species 4+ ANTIMICROBIAL SUSCEPTIBILITY Preliminary Comment CONTINUED ON NEXT PAGE RUN DATE: 10/11/18 PAGE 2 RUN TIME: 1611 [facility] [address] [place] [address] Rashi Crowe M.D., Contract Law Specialist SPEC: [id number] PATIENT: VINAY DONOHUET [id number] ( Continued) Procedure Result ANTIMICROBIAL SUSCEPTIBILITY Preliminary (continued) S = Susceptible; I = Intermediate; R = Resistant P = Positive; N = Negative MICS are expressed in micrograms per mL Antibiotic RSLT#1 RSLT#2 RSLT#3 RSLT#4 Amoxicillin/Clavulanic Acid I =16 Ampicillin R>=32 Cefepime S<=0.12 Ceftriaxone S<=0.25 Cefuroxime S =2 Ciprofloxacin S<=0.25 R>=8 Clindamycin R =R Ertapenem S<=0.12 Erythromycin R>=8 Gentamicin S<=1 S<=0.5 Imipenem S =1 Levofloxacin S<=0.12 R>=8 Linezolid S =2 Meropenem S<=0.25 Oxacillin R>=4 Penicillin R>=0.5 Piperacillin/Tazobactam S<=4 Rifampin S<=0.5 Tetracycline R>=16 S<=1 Tobramycin S<=1 Trimethoprim/Sulfa R>=320 S<=10 Vancomycin S<=0.5 GRAM STAIN Final Final report GRAM STAIN RES 1 Final Comment Many gram positive cocci in pairs, chains, and clusters GRAM STAIN RES 2 Final Comment Rare white blood cells. GRAM STAIN RES 3 Final Comment CONTINUED ON NEXT PAGE RUN DATE: 10/11/18 PAGE 3 RUN TIME: 1619 [facility] [address] [place] [address] Rashi Crowe M.D., Contract Law Specialist SPEC: [id number] PATIENT: CHARANJITCRIS [id number] ( Continued) Procedure Result GRAM STAIN RES 3 Final (continued) Rare gram negative rods. Performed at: [facility] [place] [address] [facility] [address], [place], [place] [id number] Health Information Management Director: ANDRY Yancey MD, Phone: [phone] RUN DATE: 10/10/18 PAGE 1 RUN TIME: 1909 [facility] [address] [place] [address] Rashi Crowe M.D., Contract Law Specialist PATIENT: CRIS DONOHUE ACCT: [id number] LOC: [address] [place] [address] U : [id number] AGE/SX: 53/M ROOM: [facility] REG : 10/05/[address]: PAT MOSHER MD : 1965 BED: 1 DIS : STATUS: ADM IN TLOC: SPEC #: [id number] GARY: 10/05/18 STATUS: COMP REQ #: [id number] RECD: 10/05/18 [facility] DR: PAT MOSHER MD SOURCE: FOOT ENTR: 10/05/[address] [facility] [address]: BRYAN CHEEMA II, MD [facility]: WOUND BECERRA,ONDINA COTO MD, DO ORDERED: ANAER/AEROB/GS Procedure Result ANAEROBIC-AEROBIC CULTURE Final Final report ANAEROBIC RES 1 Final Comment No anaerobic growth in 72 hours. AEROBIC CULT Final Final report AEROBIC RES 1 Final Klebsiella pneumoniae 4+ AEROBIC RES 2 Final Citrobacter braakii 4+ AEROBIC RES 3 Final Comment Methicillin - resistant Staphylococcus aureus 4+ Based on resistance to oxacillin this isolate would be resistant to all currently available beta-lactam antimicrobial agents, with the exception of the newer cephalosporins with anti-MRSA activity, such as Ceftaroline This isolate does not demonstrate inducible clindamycin resistance in vitro by D test. AEROBIC RES 4 Final Enterococcus faecalis CONTINUED ON NEXT PAGE RUN DATE: 10/10/18 PAGE 2 RUN TIME: 1909 [facility] [address] [place] [address] Rashi Crowe M.D., Contract Law Specialist SPEC: [id number] PATIENT: CRIS DONOHUE [id number] ( Continued) Procedure Result AEROBIC RES 4 Final (continued) 4+ ANTIMICROBIAL SUSCEPTIBILITY Final Comment S = Susceptible; I = Intermediate; R = Resistant P = Positive; N = Negative MICS are expressed in micrograms per mL Antibiotic RSLT#1 RSLT#2 RSLT#3 RSLT#4 Amoxicillin/Clavulanic Acid S<=2 R =R Ampicillin R>=32 Cefazolin R>=64 Cefepime S<=0.12 Ceftriaxone S<=0.25 Cefuroxime S =2 R =R Ciprofloxacin S<=0.25 S<=0.25 R>=8 Clindamycin S<=0.25 Ertapenem S<=0.12 Erythromycin R>=8 Gentamicin S<=1 S<=1 S<=0.5 Imipenem S<=0.25 S =0.5 Levofloxacin S<=0.12 R>=8 Linezolid S =2 Meropenem S<=0.25 S<=0.25 Oxacillin R>=4 Penicillin R>=0.5 S =8 Piperacillin/Tazobactam S<=4 Rifampin S =1 Tetracycline S<=1 S<=1 S =2 Tobramycin S<=1 S<=1 Trimethoprim/Sulfa S<=20 R>=320 S<=10 Vancomycin S<=0.5 S =1 GRAM STAIN Final Final report GRAM STAIN RES 1 Final Comment No white blood cells seen. GRAM STAIN RES 2 Final Comment CONTINUED ON NEXT PAGE RUN DATE: 10/10/18 PAGE 3 RUN TIME: 1909 [facility] [address] [place] [address] Rashi Crowe M.D., Contract Law Specialist SPEC: [id number] PATIENT: CRIS DONOHUE [id number] ( Continued) Procedure Result GRAM STAIN RES 2 Final (continued) Moderate number of gram positive cocci. 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 MRSA, Citrobacter & Klebsiella from 10/05. 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
[2018-10-12 11:00] VITALS: BP 156/86
[2018-10-12 12:39] LABS: VANC TR 13.2 mcg/mL (10.0-20.0)
--- NOTE | 2018-10-12 13:07 | PATHOLOGY ---
[facility] Accession Number: [id number] . 01 Material submitted: . LEFT TRANSMETATARSAL AMPUTATION . 01 Clinical history: . Left foot abscess, peripheral vascular disease . 02 Diagnosis: Fourth and fifth toes and separate segments of skin and subcutaneous tissue and bone, left fourth and fifth toes transmetatarsal amputation: - Gangrenous necrosis, acute cellulitis, and acute osteomyelitis of fourth and fifth toes. - Acute cellulitis of separate segments of skin and subcutaneous tissue. (JPM:tanisha; 10/12/2018) QMS/10/12/2018 . 02 Electronically signed: . Rashi Crowe MD, Pathologist NPI- [id number] . 01 Gross description: . The specimen is received in formalin, labeled "Evan Augustin, left transmetatarsal amputation". Received are two amputated digits measuring 7.4 x 6.6 x 4.8 cm in greatest dimensions. The bone margins are jagged in appearance. Both nails are present. Toe 4 is overall dusky cope-brown and necrotic in appearance with a large amount of skin slippage present. Toe 5 is overall pink-cope to pink-red in appearance. The bone margins are inked black. Also received are multiple irregular segments of pale goodson skin, all of which have attached bone, measuring 13.8 x 10.6 x 6.6 cm in aggregate dimensions. One section displays four bone margins, three of which are blunt in appearance, consistent with transection, and one of which is concave in appearance, consistent with disarticulation. The attached skin and soft tissue is slightly necrotic in appearance. The specimen is submitted representatively as follows: . A1-A3 full-thickness longitudinal cross-section of toe 5, submitted from proximal to distal aspects, following decalcification A4-A6 full-thickness longitudinal cross-section of toe 4, submitted from proximal to distal aspects, following decalcification A7 field marketing representative sections of soft tissue from separately submitted segments of skin. (CAA; 10/09/2018) QAC/QAC . 02 Pathologist provided ICD-10: M86.172, L03.032, I96 . 02 CPT . 717251, 760540 Specimen Comment: A courtesy copy of this report has been sent to Specimen Comment: [phone], . Specimen Comment: Report sent to / DR MOSHER Specimen Comment: A duplicate report has been generated due to demographic updates. Performed at: 01 [facility] [address] [facility] [address], [place] [id number] MD Donnell Arias MD Phone: [phone] Performed at: 02 [facility] [address] [place], [place] [id number] MD Rashi Crowe MD Phone: [phone]
[2018-10-12] MEDS: MEROPENEM 500 MG in IV NORMAL SALINE 50ML 50 ML IV SCH ×2 (13:53→21:50)
[2018-10-12 15:00] VITALS: BP 132/74
[2018-10-12] MEDS: VANCOMYCIN PER PHARMACY MC PRN ×2 (15:24→15:25)
[2018-10-12 19:00] VITALS: BP 163/81
[2018-10-12] MEDS: INSULIN GLARGINE 300 UNITS/3 ML INSULN.PEN. SQ SCH (22:05)
--- NOTE | 2018-10-12 22:12 | PN ---
DATE: LOCATION: He is in room 578. SUBJECTIVE: The patient is awake, alert. Denies any specific complaints other than worrying about what is going to happen with his leg. OBJECTIVE: VITAL SIGNS: Stable. He is afebrile. GENERAL: Again, awake and alert. CHEST: Clear. HEART: Regular. ABDOMEN: Benign. Left foot is dressed, has the wound VAC. ASSESSMENT: Became nonfunctional last evening, has been dressed, waiting for wound care to reapply today. Sugars are overall somewhat better with one high again this morning. IV antibiotics are ongoing. IMPRESSION: 1. Status post amputation, left foot, due to diabetic foot infection. 2. Diabetes, poor control, but improving. 3. Peripheral arterial disease. 4. Wound VAC, currently nonfunctional. PLAN: Await wound care to replace the wound VAC. Hyperbaric oxygen is at this point in time ongoing. PAT MOSHER MD DR: MEHRAN/denise JOB#: [id number] / [id number]
[2018-10-12 22:36] VITALS: BP 172/87
[2018-10-13] MEDS: VANCOMYCIN 1.25 GM in IV NORMAL SALINE 250ML 250 ML IV SCH ×2 (01:04→13:31)
[2018-10-13] MEDS: oxyCODONE/APAP 10/325 1 TAB TABLET PO PRN ×4 (01:41→23:27)
[2018-10-13 02:39] VITALS: BP 156/81
[2018-10-13 04:53] LABS: GFR 78.8
[2018-10-13] MEDS: MEROPENEM 500 MG in IV NORMAL SALINE 50ML 50 ML IV SCH ×3 (05:48→22:59)
[2018-10-13 07:00] VITALS: BP 146/84
[2018-10-13] MEDS: PIOGLITAZONE 15 MG TABLET. PO SCH (08:01)
[2018-10-13] MEDS: DULoxetine HCL 30 MG CAPSULE.DR PO SCH (08:01)
[2018-10-13] MEDS: LORazepam 1 MG TABLET PO SCH ×2 (08:01→22:58)
[2018-10-13] MEDS: LACTOBACILLUS RHAMNOSUS GG 1 CAPSULE. PO SCH ×2 (08:01→22:58)
[2018-10-13] MEDS: INSULIN LISPRO 300 UNITS/3 ML INSULN.PEN. SQ SCH ×3 (08:10→17:28)
--- NOTE | 2018-10-13 10:07 | PDOC ---
Provider Note Provider Note POD # 5 Post op open high TMA Looked at picture of wound yesterday, some progressive areas of necrosis Imp: Unlikely to heal Plan: Recommend consideration for lt BK amputation, discussed reasons for this with pt. Will recheck wound tomorrow at next VAC change ALPHONSO SNELL MD Oct 13, 2018 10:07
--- NOTE | 2018-10-13 10:27 | PDOC ---
Infectious Disease Note Vital Signs: Vital Signs Vital Signs Date Time Temp Pulse Resp B/P (MAP) Pulse Ox O2 Delivery O2 Flow Rate FiO2 10/13/18 08:01 Room Air 10/13/18 07:00 99.9 96 20 146/84 (104) 97 99.9 Medications: Inpatient Meds: Current Medications Medications (Trade) Dose Ordered Sig/Tory Start Time Stop Time Status Last Admin Dose Admin Bacitracin 25316 unit/Sodium Chloride 500 ml @ 500 mls/hr 1X ONCE 10/07/18 14:30 10/07/18 15:29 DC Dexamethasone Sodium Phosphate (Decadron) 20 mg STK-MED ONCE 10/08/18 07:07 10/08/18 07:08 DC Duloxetine HCl (Cymbalta) 30 mg DAILY 10/08/18 09:00 10/13/18 08:01 30 MG Famotidine (Pepcid Vial) 20 mg STK-MED ONCE 10/08/18 07:07 10/08/18 07:08 DC Fentanyl Citrate (Fentanyl 2ml Vial) 100 mcg STK-MED ONCE 10/08/18 07:07 10/08/18 07:08 DC Insulin Glargine (Lantus) 50 units QHS 10/05/18 21:00 10/12/18 22:05 50 UNITS Insulin Human Lispro (HumaLOG) 60 units TIDWMEALS 10/05/18 17:00 10/13/18 08:10 40 UNITS Lactobacillus Rhamnosus (Culturelle) 1 cap BID 10/06/18 21:00 10/13/18 08:01 1 CAP Lidocaine HCl (Xylocaine-Mpf 1% 5ml Vial) 5 ml STK-MED ONCE 10/08/18 07:07 10/08/18 07:08 DC Lorazepam (Ativan) 1 mg BID 10/05/18 21:00 10/13/18 08:01 1 MG Meropenem 500 mg/ Sodium Chloride 50 ml @ 100 mls/hr Q8HRS 10/12/18 14:00 10/13/18 05:48 100 MLS/HR Midazolam HCl (Versed) 2 mg STK-MED ONCE 10/08/18 07:07 10/08/18 07:08 DC Morphine Sulfate (Morphine Sulfate) 2 mg PRN Q2HR PRN 11/15/18 08:15 Non-Formulary Medication (Dextroamphetamine/ Amphetamine (Adderall Xr 30 Mg Capsule)) 1 cap DAILY 10/06/18 09:00 10/07/18 13:09 DC Non-Formulary Medication (Difluprednate (Durezol)) 1 drop Q2HR W/A 10/05/18 18:00 10/06/18 17:22 DC Ondansetron HCl (Zofran) 4 mg STK-MED ONCE 10/08/18 07:07 10/08/18 07:08 DC Oxycodone/ Acetaminophen (Percocet 10/325) 2 tab PRN Q4HRS PRN 10/05/18 16:45 10/13/18 08:01 2 TAB Phenylephrine HCl (PHENYLEPHRINE in 0.9% NACL PF) 1 mg STK-MED ONCE 10/08/18 07:42 10/08/18 07:43 DC Pioglitazone HCl (Actos) 15 mg DAILY 10/06/18 09:00 10/13/18 08:01 15 MG Piperacillin Sod/ Tazobactam Sod 3.375 gm/Sodium Chloride 50 ml @ 100 mls/hr Q6HRS 10/06/18 00:00 10/12/18 09:44 DC 10/12/18 05:47 100 MLS/HR Propofol 20 ml @ As Directed STK-MED ONCE 10/08/18 07:07 10/08/18 07:08 DC Sevoflurane (Ultane) 30 ml STK-MED ONCE 10/08/18 08:03 10/08/18 08:04 DC Vancomycin HCl (Vanco Per Pharmacy) 1 each PRN DAILY PRN 10/05/18 23:15 10/12/18 15:25 1 EACH Vancomycin HCl (Vancomycin Trough Level) 1 each 1X ONCE 10/09/18 00:30 10/09/18 00:31 DC Vancomycin HCl 1.25 gm/Sodium Chloride 250 ml @ 167 mls/hr Q12H 10/06/18 13:00 10/13/18 01:04 167 MLS/HR Vancomycin HCl 2 gm/Sodium Chloride 500 ml @ 250 mls/hr 1X ONCE 10/05/18 23:30 10/06/18 01:29 DC 10/06/18 01:08 250 MLS/HR Labs: Lab Laboratory Tests Test 10/12/18 10:34 10/12/18 12:15 10/12/18 16:20 10/12/18 20:31 Glucose (Fingerstick) 110 mg/dL (70-99) 166 mg/dL (70-99) 191 mg/dL (70-99) Vancomycin Level Trough 13.2 mcg/mL (10.0-20.0) Vancomycin Last Dose Date 10/12/18 Vancomycin Last Dose Time 0030 Test 10/13/18 04:20 10/13/18 07:49 Creatinine 1.0 mg/dL (0.7-1.3) Estimated GFR (Cockcroft-Gault) 78.8 Glucose (Fingerstick) 187 mg/dL (70-99) Micro RUN DATE: 10/11/18 PAGE 1 RUN TIME: 1611 [facility] [address] [place] [address] Rashi Crowe M.D., Appliance Service Representative PATIENT: CRIS DONOHUE ACCT: [id number] LOC: [address] [place] [address] U : [id number] AGE/SX: 53/M ROOM: [facility] REG : 10/05/[address]: PAT MOSHER MD : 1965 BED: 1 DIS : STATUS: ADM IN TLOC: SPEC #: [id number] GARY: 10/08/18 STATUS: MELECIO REQ #: [id number] RECD: 10/08/[address] [facility] [address]: PAT MOSHER MD SOURCE: FOOT ENTR: 10/08/[address] [facility] [address]: BRYAN CHEEMA II, MD [facility]: TEJINDER KWAME GOMEZ II, MD,GAURI MEDEROS,ONDINA ARAUJO,JACQUELINE Agrawal MD ORDERED: ANAER/AEROB/GS Procedure Result ANAEROBIC-AEROBIC CULTURE PENDING ANAEROBIC RES 1 PENDING AEROBIC CULT Preliminary Preliminary report AEROBIC RES 1 Preliminary Klebsiella pneumoniae 4+ AEROBIC RES 2 Preliminary Comment Methicillin - resistant Staphylococcus aureus 4+ Based on resistance to oxacillin this isolate would be resistant to all currently available beta-lactam antimicrobial agents, with the exception of the newer cephalosporins with anti-MRSA activity, such as Ceftaroline AEROBIC RES 3 Preliminary Streptococcus species 4+ ANTIMICROBIAL SUSCEPTIBILITY Preliminary Comment CONTINUED ON NEXT PAGE RUN DATE: 10/11/18 PAGE 2 RUN TIME: 1611 [facility] [address] [place] [address] Rashi Crowe M.D., Appliance Service Representative SPEC: [id number] PATIENT: CRIS DONOHUE [id number] ( Continued) Procedure Result ANTIMICROBIAL SUSCEPTIBILITY Preliminary (continued) S = Susceptible; I = Intermediate; R = Resistant P = Positive; N = Negative MICS are expressed in micrograms per mL Antibiotic RSLT#1 RSLT#2 RSLT#3 RSLT#4 Amoxicillin/Clavulanic Acid I =16 Ampicillin R>=32 Cefepime S<=0.12 Ceftriaxone S<=0.25 Cefuroxime S =2 Ciprofloxacin S<=0.25 R>=8 Clindamycin R =R Ertapenem S<=0.12 Erythromycin R>=8 Gentamicin S<=1 S<=0.5 Imipenem S =1 Levofloxacin S<=0.12 R>=8 Linezolid S =2 Meropenem S<=0.25 Oxacillin R>=4 Penicillin R>=0.5 Piperacillin/Tazobactam S<=4 Rifampin S<=0.5 Tetracycline R>=16 S<=1 Tobramycin S<=1 Trimethoprim/Sulfa R>=320 S<=10 Vancomycin S<=0.5 GRAM STAIN Final Final report GRAM STAIN RES 1 Final Comment Many gram positive cocci in pairs, chains, and clusters GRAM STAIN RES 2 Final Comment Rare white blood cells. GRAM STAIN RES 3 Final Comment CONTINUED ON NEXT PAGE RUN DATE: 10/11/18 PAGE 3 RUN TIME: 1611 [facility] [address] [place] [address] Rashi Crowe M.D., Appliance Service Representative SPEC: [id number] PATIENT: CRIS DONOHUE [id number] ( Continued) Procedure Result GRAM STAIN RES 3 Final (continued) Rare gram negative rods. Performed at: - [facility] [place] [address], [place], [place] [id number] Pipe Joints Supervisor: ANDRY Yancey MD, Phone: [phone] RUN DATE: 10/10/18 PAGE 1 RUN TIME: 1909 [facility] [address] [place] [address] Rashi Crowe M.D., Appliance Service Representative PATIENT: CRIS DONOHUE ACCT: [id number] LOC: [address] [place] [address] U : [id number] AGE/SX: 53/M ROOM: 578 REG : 10/05/[address]: PAT MOSHER MD : 1965 BED: 1 DIS : STATUS: ADM IN TLOC: SPEC #: [id number] GARY: 10/05/18 STATUS: COMP REQ #: [id number] RECD: 10/05/[address] [facility] [address]: PAT MOSHER MD SOURCE: FOOT ENTR: 10/05/[address] [facility] [address]: BRYAN CHEEMA II, MD [facility]: WOUND BECERRA,ONDINA COTO MD, DO ORDERED: ANAER/AEROB/GS Procedure Result ANAEROBIC-AEROBIC CULTURE Final Final report ANAEROBIC RES 1 Final Comment No anaerobic growth in 72 hours. AEROBIC CULT Final Final report AEROBIC RES 1 Final Klebsiella pneumoniae 4+ AEROBIC RES 2 Final Citrobacter braakii 4+ AEROBIC RES 3 Final Comment Methicillin - resistant Staphylococcus aureus 4+ Based on resistance to oxacillin this isolate would be resistant to all currently available beta-lactam antimicrobial agents, with the exception of the newer cephalosporins with anti-MRSA activity, such as Ceftaroline This isolate does not demonstrate inducible clindamycin resistance in vitro by D test. AEROBIC RES 4 Final Enterococcus faecalis CONTINUED ON NEXT PAGE RUN DATE: 10/10/18 PAGE 2 RUN TIME: 1909 [facility] [address] [place] [address] Rashi Crowe M.D., Appliance Service Representative SPEC: [id number] PATIENT: CRIS DONOHUE [id number] ( Continued) Procedure Result AEROBIC RES 4 Final (continued) 4+ ANTIMICROBIAL SUSCEPTIBILITY Final Comment S = Susceptible; I = Intermediate; R = Resistant P = Positive; N = Negative MICS are expressed in micrograms per mL Antibiotic RSLT#1 RSLT#2 RSLT#3 RSLT#4 Amoxicillin/Clavulanic Acid S<=2 R =R Ampicillin R>=32 Cefazolin R>=64 Cefepime S<=0.12 Ceftriaxone S<=0.25 Cefuroxime S =2 R =R Ciprofloxacin S<=0.25 S<=0.25 R>=8 Clindamycin S<=0.25 Ertapenem S<=0.12 Erythromycin R>=8 Gentamicin S<=1 S<=1 S<=0.5 Imipenem S<=0.25 S =0.5 Levofloxacin S<=0.12 R>=8 Linezolid S =2 Meropenem S<=0.25 S<=0.25 Oxacillin R>=4 Penicillin R>=0.5 S =8 Piperacillin/Tazobactam S<=4 Rifampin S =1 Tetracycline S<=1 S<=1 S =2 Tobramycin S<=1 S<=1 Trimethoprim/Sulfa S<=20 R>=320 S<=10 Vancomycin S<=0.5 S =1 GRAM STAIN Final Final report GRAM STAIN RES 1 Final Comment No white blood cells seen. GRAM STAIN RES 2 Final Comment CONTINUED ON NEXT PAGE RUN DATE: 10/10/18 PAGE 3 RUN TIME: 1909 [facility] [address] [place] [address] Rashi Crowe M.D., Appliance Service Representative SPEC: [id number] PATIENT: CHARANJITCRIS [id number] ( Continued) Procedure Result GRAM STAIN RES 2 Final (continued) Moderate number of gram positive cocci. Performed at: - [facility] [place] [address] [facility] [address], [place], [place] [id number] P[employer] Joints Supervisor: ANDRY Yancey MD, Phone: [phone] Objective: Assessment: 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 MRSA, Citrobacter & Klebsiella from 10/05. Staph aureus ,strep and klebsiella from 10/08 Left foot cellulitis Leukocytosis -improved Poorly controlled DM PVD Tobaccoism Plan: Plan of Care duplicate note SON BECERRA MD Oct 13, 2018 10:27
[2018-10-13 11:00] VITALS: BP 145/80
--- NOTE | 2018-10-13 11:37 | PDOC ---
Infectious Disease Note Subjective: Subjective PT sleepy has low grade fevers c/o pain at operative site ROS: ROS Negative except for above. Vital Signs: Vital Signs Vital Signs Date Time Temp Pulse Resp B/P (MAP) Pulse Ox O2 Delivery O2 Flow Rate FiO2 10/13/18 09:10 Room Air 10/13/18 07:00 99.9 96 20 146/84 (104) 97 99.9 Physical Exam: PHYSICAL EXAM GENERAL: Resting quietly, appears comfortable HEENT: Oral cavity clear, edentulous NECK: Supple LUNGS: Clear. HEART: S1 and S2 regular. ABDOMEN: Soft, nontender EXTREMITIES: No edema or cyanosis. Left foot wound vac in place SKIN: warm without rash NEUROLOGIC: Arouses easily to name, responds appropriately Medications: Inpatient Meds: Current Medications Medications (Trade) Dose Ordered Sig/Tory Start Time Stop Time Status Last Admin Dose Admin Bacitracin 64897 unit/Sodium Chloride 500 ml @ 500 mls/hr 1X ONCE 10/07/18 14:30 10/07/18 15:29 DC Dexamethasone Sodium Phosphate (Decadron) 20 mg STK-MED ONCE 10/08/18 07:07 10/08/18 07:08 DC Duloxetine HCl (Cymbalta) 30 mg DAILY 10/08/18 09:00 10/13/18 08:01 30 MG Famotidine (Pepcid Vial) 20 mg STK-MED ONCE 10/08/18 07:07 10/08/18 07:08 DC Fentanyl Citrate (Fentanyl 2ml Vial) 100 mcg STK-MED ONCE 10/08/18 07:07 10/08/18 07:08 DC Insulin Glargine (Lantus) 50 units QHS 10/05/18 21:00 10/12/18 22:05 50 UNITS Insulin Human Lispro (HumaLOG) 60 units TIDWMEALS 10/05/18 17:00 10/13/18 08:10 40 UNITS Lactobacillus Rhamnosus (Culturelle) 1 cap BID 10/06/18 21:00 10/13/18 08:01 1 CAP Lidocaine HCl (Xylocaine-Mpf 1% 5ml Vial) 5 ml STK-MED ONCE 10/08/18 07:07 10/08/18 07:08 DC Lorazepam (Ativan) 1 mg BID 10/05/18 21:00 10/13/18 08:01 1 MG Meropenem 500 mg/ Sodium Chloride 50 ml @ 100 mls/hr Q8HRS 10/12/18 14:00 10/13/18 05:48 100 MLS/HR Midazolam HCl (Versed) 2 mg STK-MED ONCE 10/08/18 07:07 10/08/18 07:08 DC Morphine Sulfate (Morphine Sulfate) 2 mg PRN Q2HR PRN 10/08/18 08:15 Non-Formulary Medication (Dextroamphetamine/ Amphetamine (Adderall Xr 30 Mg Capsule)) 1 cap DAILY 10/06/18 09:00 10/07/18 13:09 DC Non-Formulary Medication (Difluprednate (Durezol)) 1 drop Q2HR W/A 10/05/18 18:00 10/06/18 17:22 DC Ondansetron HCl (Zofran) 4 mg STK-MED ONCE 10/08/18 07:07 10/08/18 07:08 DC Oxycodone/ Acetaminophen (Percocet 10/325) 2 tab PRN Q4HRS PRN 10/05/18 16:45 10/13/18 08:01 2 TAB Phenylephrine HCl (PHENYLEPHRINE in 0.9% NACL PF) 1 mg STK-MED ONCE 10/08/18 07:42 10/08/18 07:43 DC Pioglitazone HCl (Actos) 15 mg DAILY 10/06/18 09:00 10/13/18 08:01 15 MG Piperacillin Sod/ Tazobactam Sod 3.375 gm/Sodium Chloride 50 ml @ 100 mls/hr Q6HRS 10/06/18 00:00 10/12/18 09:44 DC 10/12/18 05:47 100 MLS/HR Propofol 20 ml @ As Directed STK-MED ONCE 10/08/18 07:07 10/08/18 07:08 DC Sevoflurane (Ultane) 30 ml STK-MED ONCE 10/08/18 08:03 10/08/18 08:04 DC Vancomycin HCl (Vanco Per Pharmacy) 1 each PRN DAILY PRN 10/05/18 23:15 10/12/18 15:25 1 EACH Vancomycin HCl (Vancomycin Trough Level) 1 each 1X ONCE 10/09/18 00:30 10/09/18 00:31 DC Vancomycin HCl 1.25 gm/Sodium Chloride 250 ml @ 167 mls/hr Q12H 10/06/18 13:00 10/13/18 01:04 167 MLS/HR Vancomycin HCl 2 gm/Sodium Chloride 500 ml @ 250 mls/hr 1X ONCE 10/05/18 23:30 10/06/18 01:29 DC 10/06/18 01:08 250 MLS/HR Labs: Lab Laboratory Tests Test 10/12/18 12:15 10/12/18 16:20 10/12/18 20:31 10/13/18 04:20 Vancomycin Level Trough 13.2 mcg/mL (10.0-20.0) Vancomycin Last Dose Date 10/12/18 Vancomycin Last Dose Time 0030 Glucose (Fingerstick) 166 mg/dL (70-99) 191 mg/dL (70-99) Creatinine 1.0 mg/dL (0.7-1.3) Estimated GFR (Cockcroft-Gault) 78.8 Test 10/13/18 07:49 Glucose (Fingerstick) 187 mg/dL (70-99) Micro RUN DATE: 10/11/18 PAGE 1 RUN TIME: 1611 [facility] [address] [place] [address] Rashi Crowe M.D., [employer] PATIENT: CRIS DONOHUE ACCT: [id number] LOC: [address] [place] [address] U : [id number] AGE/SX: 53/M ROOM: 578 REG : 10/05/[address]: PAT MOSHER MD : 1965 BED: 1 DIS : STATUS: ADM IN TLOC: SPEC #: [id number] GARY: 10/08/18 STATUS: RES REQ #: [id number] RECD: 10/08/[address] [facility] [address]: PAT MOSHER MD SOURCE: FOOT ENTR: 10/08/[address] [facility] [address]: BRYAN CHEEMA II, MD [facility]: KWAME HERRERA II, MD, SAMIR R MD KELLING,ONDINA ARAUJO,JACQUELINE Agrawal MD ORDERED: ANAER/AEROB/GS Procedure Result ANAEROBIC-AEROBIC CULTURE PENDING ANAEROBIC RES 1 PENDING AEROBIC CULT Preliminary Preliminary report AEROBIC RES 1 Preliminary Klebsiella pneumoniae 4+ AEROBIC RES 2 Preliminary Comment Methicillin - resistant Staphylococcus aureus 4+ Based on resistance to oxacillin this isolate would be resistant to all currently available beta-lactam antimicrobial agents, with the exception of the newer cephalosporins with anti-MRSA activity, such as Ceftaroline AEROBIC RES 3 Preliminary Streptococcus species 4+ ANTIMICROBIAL SUSCEPTIBILITY Preliminary Comment CONTINUED ON NEXT PAGE RUN DATE: 10/11/18 PAGE 2 RUN TIME: 1611 [facility] [address] [place] [address] Rashi Crowe M.D., [employer] SPEC: [id number] PATIENT: CRIS DONOHUE [id number] ( Continued) Procedure Result ANTIMICROBIAL SUSCEPTIBILITY Preliminary (continued) S = Susceptible; I = Intermediate; R = Resistant P = Positive; N = Negative MICS are expressed in micrograms per mL Antibiotic RSLT#1 RSLT#2 RSLT#3 RSLT#4 Amoxicillin/Clavulanic Acid I =16 Ampicillin R>=32 Cefepime S<=0.12 Ceftriaxone S<=0.25 Cefuroxime S =2 Ciprofloxacin S<=0.25 R>=8 Clindamycin R =R Ertapenem S<=0.12 Erythromycin R>=8 Gentamicin S<=1 S<=0.5 Imipenem S =1 Levofloxacin S<=0.12 R>=8 Linezolid S =2 Meropenem S<=0.25 Oxacillin R>=4 Penicillin R>=0.5 Piperacillin/Tazobactam S<=4 Rifampin S<=0.5 Tetracycline R>=16 S<=1 Tobramycin S<=1 Trimethoprim/Sulfa R>=320 S<=10 Vancomycin S<=0.5 GRAM STAIN Final Final report GRAM STAIN RES 1 Final Comment Many gram positive cocci in pairs, chains, and clusters GRAM STAIN RES 2 Final Comment Rare white blood cells. GRAM STAIN RES 3 Final Comment CONTINUED ON NEXT PAGE RUN DATE: 10/11/18 PAGE 3 RUN TIME: 1611 [facility] [address] [place] [address] Rashi Crowe M.D., [employer] SPEC: [id number] PATIENT: CHARANJITCRIS [id number] ( Continued) Procedure Result GRAM STAIN RES 3 Final (continued) Rare gram negative rods. Performed at: - [facility] [address], [place], [place] [id number] Dispensing Optician Apprentice: ANDRY Yancey MD, Phone: [phone] RUN DATE: 10/10/18 PAGE 1 RUN TIME: 1909 [facility] [address] [place] [address] Rashi Crowe M.D., [employer] PATIENT: CRIS DONOHUE ACCT: [id number] LOC: [address] [place] [address] U : [id number] AGE/SX: 53/M ROOM: 578 REG : 10/05/[address]: PAT MOSHER MD : 1965 BED: 1 DIS : STATUS: ADM IN TLOC: SPEC #: [id number] GARY: 10/05/18 STATUS: YISSEL REQ #: [id number] RECD: 10/05/[address] [facility] [address]: PAT MOSHER MD SOURCE: FOOT ENTR: 10/05/[address] [facility] [address]: BRYAN CHEEMA II, MD [facility]: WOUND BECERRA,ONDINA COTO MD, DO ORDERED: ANAER/AEROB/GS Procedure Result ANAEROBIC-AEROBIC CULTURE Final Final report ANAEROBIC RES 1 Final Comment No anaerobic growth in 72 hours. AEROBIC CULT Final Final report AEROBIC RES 1 Final Klebsiella pneumoniae 4+ AEROBIC RES 2 Final Citrobacter braakii 4+ AEROBIC RES 3 Final Comment Methicillin - resistant Staphylococcus aureus 4+ Based on resistance to oxacillin this isolate would be resistant to all currently available beta-lactam antimicrobial agents, with the exception of the newer cephalosporins with anti-MRSA activity, such as Ceftaroline This isolate does not demonstrate inducible clindamycin resistance in vitro by D test. AEROBIC RES 4 Final Enterococcus faecalis CONTINUED ON NEXT PAGE RUN DATE: 10/10/18 PAGE 2 RUN TIME: 1909 [facility] [address] [place] [address] Rashi Crowe M.D., [employer] SPEC: [id number] PATIENT: CRIS DONOHUE [id number] ( Continued) Procedure Result AEROBIC RES 4 Final (continued) 4+ ANTIMICROBIAL SUSCEPTIBILITY Final Comment S = Susceptible; I = Intermediate; R = Resistant P = Positive; N = Negative MICS are expressed in micrograms per mL Antibiotic RSLT#1 RSLT#2 RSLT#3 RSLT#4 Amoxicillin/Clavulanic Acid S<=2 R =R Ampicillin R>=32 Cefazolin R>=64 Cefepime S<=0.12 Ceftriaxone S<=0.25 Cefuroxime S =2 R =R Ciprofloxacin S<=0.25 S<=0.25 R>=8 Clindamycin S<=0.25 Ertapenem S<=0.12 Erythromycin R>=8 Gentamicin S<=1 S<=1 S<=0.5 Imipenem S<=0.25 S =0.5 Levofloxacin S<=0.12 R>=8 Linezolid S =2 Meropenem S<=0.25 S<=0.25 Oxacillin R>=4 Penicillin R>=0.5 S =8 Piperacillin/Tazobactam S<=4 Rifampin S =1 Tetracycline S<=1 S<=1 S =2 Tobramycin S<=1 S<=1 Trimethoprim/Sulfa S<=20 R>=320 S<=10 Vancomycin S<=0.5 S =1 GRAM STAIN Final Final report GRAM STAIN RES 1 Final Comment No white blood cells seen. GRAM STAIN RES 2 Final Comment CONTINUED ON NEXT PAGE RUN DATE: 10/10/18 PAGE 3 RUN TIME: 1909 [facility] [address] [place] [address] Rashi Crowe M.D., [employer] SPEC: [id number] PATIENT: CHARANJITCRIS [id number] ( Continued) Procedure Result GRAM STAIN RES 2 Final (continued) Moderate number of gram positive cocci. 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 MRSA, Citrobacter & Klebsiella from 10/05. MRSA,strep and klebsiella from 10/08 Left foot cellulitis Leukocytosis -improved Poorly controlled DM PVD Tobaccoism Plan: Plan of Care vanc and merrem Vanc Trough 13.2 Monitor labs/renal function Vascular surgery note reviewed has more necrosis of wound and recommending Lt BKA BS control Smoking cessation HBO therapy retirement prognosis poor secondary to noncomplaince D/W SON DONALDSON MD Oct 13, 2018 11:37
[2018-10-13] MEDS: VANCOMYCIN PER PHARMACY MC PRN (14:08)
[2018-10-13 14:37] VITALS: BP 142/78
[2018-10-13 19:00] VITALS: BP 144/75
--- NOTE | 2018-10-13 22:29 | RAD ---
Indication:PICC placement verification TECHNIQUE:Portable AP chest X-ray COMPARISON:Previous exam from the same day earlier FINDINGS: Interval retraction of PICC line with its tip at the cavoatrial junction. Heart is normal in size. Lungs are clear. No pneumothorax or pleural effusion. Visualized bony thorax within normal limits. IMPRESSION: Appropriately positioned tip of the PICC line. No acute pulmonary process. Electronically signed by: Monster Soriano DO (10/13/2018 10:25 PM) [facility]
--- NOTE | 2018-10-13 22:30 | RAD ---
Indication:PICC placement verification TECHNIQUE:Portable AP chest X-ray COMPARISON:None FINDINGS: Heart is normal in size. PICC line is seen with its tip in the right atrium and should be withdrawn by approximately 4.5 cm. Lungs are clear. No pneumothorax or pleural effusion. Visualized bony thorax within normal limits. IMPRESSION: Low-lying PICC line. Please withdraw by 4 cm. Electronically signed by: Monster Soriano DO (10/13/2018 10:26 PM) [facility]
[2018-10-13 22:47] VITALS: BP 153/63
[2018-10-13] MEDS: VANCOMYCIN 1 GM in IV NORMAL SALINE 250ML 250 ML IV SCH (22:59)
--- NOTE | 2018-10-13 23:03 | PN ---
DATE: LOCATION: He is in room 578. SUBJECTIVE: The patient is awake and alert. There are no, again, ongoing specific complaints other than a fear of losing more of leg and really wants to try anything besides that. OBJECTIVE: VITAL SIGNS: Stable. He is afebrile with an exception of a temperature this morning of 99.9. Sugars again are overall improved from where they had been. CHEST: Clear. HEART: Regular. ABDOMEN: Benign. EXTREMITIES: Wound VAC is present. States that wound care is believing wound has improved. ASSESSMENT: 1. Status post transmetatarsal amputation of the foot due to osteomyelitis. 2. Peripheral arterial disease. 3. Diabetes, somewhat improving. PLAN: Continue present wound care, antibiotics, help of consultants appreciated. Final plans to be made per infectious disease, as well as wound care and vascular surgery. PAT MOSHER MD DR: MEHRAN/denise JOB#: [id number] / [id number]
[2018-10-13] MEDS: INSULIN GLARGINE 300 UNITS/3 ML INSULN.PEN. SQ SCH (23:04)
[2018-10-14 02:47] VITALS: BP 148/75
[2018-10-14] MEDS: MEROPENEM 500 MG in IV NORMAL SALINE 50ML 50 ML IV SCH ×2 (06:24→14:00)
[2018-10-14] MEDS: VANCOMYCIN 1 GM in IV NORMAL SALINE 250ML 250 ML IV SCH (06:25)
[2018-10-14 07:00] VITALS: BP 153/88
[2018-10-14] MEDS: PIOGLITAZONE 15 MG TABLET. PO SCH (08:10)
[2018-10-14] MEDS: LORazepam 1 MG TABLET PO SCH (08:10)
[2018-10-14] MEDS: oxyCODONE/APAP 10/325 1 TAB TABLET PO PRN (08:10)
[2018-10-14] MEDS: LACTOBACILLUS RHAMNOSUS GG 1 CAPSULE. PO SCH (08:10)
[2018-10-14] MEDS: DULoxetine HCL 30 MG CAPSULE.DR PO SCH (08:10)
[2018-10-14] MEDS: INSULIN LISPRO 300 UNITS/3 ML INSULN.PEN. SQ SCH ×2 (08:17→12:00)
[2018-10-14] MEDS: VANCOMYCIN PER PHARMACY MC PRN (09:41)
--- NOTE | 2018-10-14 09:52 | PDOC ---
Provider Note Provider Note Vascular S: Patient without complaints, discussed at length recommendations for BKA, patient having difficult time with decision. A: Awake and alert, VSS TMA site continues to deteriorate, no granulation seen, new areas of necrosis, undermining plantar surface, exposed bone. A/P: POD 6 Left TMA - wound continues to have poor signs of healing, I discussed at length with the patient the prognosis of this with patients poor circulation and our recommendation for BKA, he is adamant that he has stopped smoking, working on controlling his diabetes, and will off-load foot completely. He is still not ready for BKA, but understands that it may need to be done in the future. Recommend continue vac therapy and IV abx per ID. YAKELIN IRWIN DIRECTOR OF CARDIOLOGY SERVICE LINE Oct 14, 2018 09:52
--- NOTE | 2018-10-14 10:11 | PN ---
DATE: 10/14/2018 LOCATION: Room 578. SUBJECTIVE: The patient is awake, alert, pushing for discharge home with IV antibiotics, had a PICC line placed last evening. OBJECTIVE: VITAL SIGNS: Stable. He is afebrile. He is mildly tachycardic with a rate of 100. CHEST: Clear. HEART: Regular. ABDOMEN: Benign. EXTREMITIES: Wound VAC is present on the left foot with dressing. LABORATORY DATA: Sugars have been relatively good for him in the 104-200 range in the last 24 hours. IMPRESSION: 1. Transmetatarsal amputation, left foot for diabetic foot infection with osteomyelitis with extension up towards the ankle. 2. Peripheral arterial disease. 3. Diabetes with improved control in the hospital. PLAN: Continue present wound care, antibiotics. Help of consultants appreciated. Infectious Disease as well as Wound care will need to come up with some sort of plan for discharge on home IV antibiotics and wound care if this at all reasonable prior to discharge. PAT MOSHER MD DR: MEHRAN/denise JOB#: [id number] / [id number]
[2018-10-14 11:00] VITALS: BP 139/69
--- NOTE | 2018-10-14 11:18 | PDOC ---
Infectious Disease Note ROS: ROS Negative except for above. Vital Signs: Vital Signs Vital Signs Date Time Temp Pulse Resp B/P (MAP) Pulse Ox O2 Delivery O2 Flow Rate FiO2 10/14/18 07:00 98.1 108 16 153/88 (109) 98 Room Air 98.1 Physical Exam: PHYSICAL EXAM GENERAL: Resting quietly, appears comfortable HEENT: Oral cavity clear, edentulous NECK: Supple LUNGS: Clear. HEART: S1 and S2 regular. ABDOMEN: Soft, nontender EXTREMITIES: No edema or cyanosis. Left foot wound vac in place SKIN: warm without rash NEUROLOGIC: Arouses easily to name, responds appropriately Medications: Inpatient Meds: Current Medications Medications (Trade) Dose Ordered Sig/Tory Start Time Stop Time Status Last Admin Dose Admin Bacitracin 87218 unit/Sodium Chloride 500 ml @ 500 mls/hr 1X ONCE 10/07/18 14:30 10/07/18 15:29 DC Dexamethasone Sodium Phosphate (Decadron) 20 mg STK-MED ONCE 10/08/18 07:07 10/08/18 07:08 DC Duloxetine HCl (Cymbalta) 30 mg DAILY 10/08/18 09:00 10/14/18 08:10 30 MG Famotidine (Pepcid Vial) 20 mg STK-MED ONCE 10/08/18 07:07 10/08/18 07:08 DC Fentanyl Citrate (Fentanyl 2ml Vial) 100 mcg STK-MED ONCE 10/08/18 07:07 10/08/18 07:08 DC Insulin Glargine (Lantus) 50 units QHS 10/05/18 21:00 10/13/18 23:04 42 UNITS Insulin Human Lispro (HumaLOG) 60 units TIDWMEALS 10/05/18 17:00 10/14/18 08:17 60 UNITS Lactobacillus Rhamnosus (Culturelle) 1 cap BID 10/06/18 21:00 10/14/18 08:10 1 CAP Lidocaine HCl (Xylocaine-Mpf 1% 5ml Vial) 5 ml STK-MED ONCE 10/08/18 07:07 10/08/18 07:08 DC Lorazepam (Ativan) 1 mg BID 10/05/18 21:00 10/14/18 08:10 1 MG Meropenem 500 mg/ Sodium Chloride 50 ml @ 100 mls/hr Q8HRS 10/12/18 14:00 10/14/18 06:24 100 MLS/HR Midazolam HCl (Versed) 2 mg STK-MED ONCE 10/08/18 07:07 10/08/18 07:08 DC Morphine Sulfate (Morphine Sulfate) 2 mg PRN Q2HR PRN 10/08/18 08:15 Non-Formulary Medication (Dextroamphetamine/ Amphetamine (Adderall Xr 30 Mg Capsule)) 1 cap DAILY 10/06/18 09:00 10/07/18 13:09 DC Non-Formulary Medication (Difluprednate (Durezol)) 1 drop Q2HR W/A 10/05/18 18:00 10/06/18 17:22 DC Ondansetron HCl (Zofran) 4 mg STK-MED ONCE 10/08/18 07:07 10/08/18 07:08 DC Oxycodone/ Acetaminophen (Percocet 10/325) 2 tab PRN Q4HRS PRN 10/05/18 16:45 10/14/18 08:10 2 TAB Phenylephrine HCl (PHENYLEPHRINE in 0.9% NACL PF) 1 mg STK-MED ONCE 10/08/18 07:42 10/08/18 07:43 DC Pioglitazone HCl (Actos) 15 mg DAILY 10/06/18 09:00 10/14/18 08:10 15 MG Piperacillin Sod/ Tazobactam Sod 3.375 gm/Sodium Chloride 50 ml @ 100 mls/hr Q6HRS 10/06/18 00:00 10/12/18 09:44 DC 10/12/18 05:47 100 MLS/HR Propofol 20 ml @ As Directed STK-MED ONCE 10/08/18 07:07 10/08/18 07:08 DC Sevoflurane (Ultane) 30 ml STK-MED ONCE 10/08/18 08:03 10/08/18 08:04 DC Vancomycin HCl (Vanco Per Pharmacy) 1 each PRN DAILY PRN 10/05/18 23:15 10/14/18 09:41 1 EACH Vancomycin HCl (Vancomycin Trough Level) 1 each 1X ONCE 10/14/18 21:00 10/14/18 21:01 Vancomycin HCl 1.25 gm/Sodium Chloride 250 ml @ 167 mls/hr Q12H 10/06/18 13:00 10/13/18 15:00 DC 10/13/18 13:31 167 MLS/HR Vancomycin HCl 1 gm/Sodium Chloride 250 ml @ 250 mls/hr Q8H 10/13/18 21:30 10/14/18 06:25 250 MLS/HR Vancomycin HCl 2 gm/Sodium Chloride 500 ml @ 250 mls/hr 1X ONCE 10/05/18 23:30 10/06/18 01:29 DC 10/06/18 01:08 250 MLS/HR Labs: Lab Laboratory Tests Test 10/13/18 11:15 10/13/18 16:21 10/13/18 20:03 10/14/18 07:53 Glucose (Fingerstick) 104 mg/dL (70-99) 233 mg/dL (70-99) 184 mg/dL (70-99) 200 mg/dL (70-99) Micro Micro RUN DATE: 10/11/18 PAGE 1 RUN TIME: 1611 [facility] [address] [place] [address] Rashi Crowe M.D., Instrument Worker PATIENT: CRIS DONOHUE ACCT: [id number] LOC: [address] [place] [address] U : [id number] AGE/SX: 53/M ROOM: 578 REG : 10/05/[address]: PAT MOSHER MD : 1965 BED: 1 DIS : STATUS: ADM IN TLOC: SPEC #: [id number] GARY: 10/08/18 STATUS: RES REQ #: [id number] RECD: 10/08/[address] [facility] [address]: PAT MOSHER MD SOURCE: FOOT ENTR: 10/08/[address] [facility] [address]: BRYAN CHEEMA II, MD [facility]: LEFT PATRICIAGAURI MARTE II, MD, MD, DOUGLAS M DO VANI, JOHN N MD ORDERED: ANAER/AEROB/GS Procedure Result ANAEROBIC-AEROBIC CULTURE PENDING ANAEROBIC RES 1 PENDING AEROBIC CULT Preliminary Preliminary report AEROBIC RES 1 Preliminary Klebsiella pneumoniae 4+ AEROBIC RES 2 Preliminary Comment Methicillin - resistant Staphylococcus aureus 4+ Based on resistance to oxacillin this isolate would be resistant to all currently available beta-lactam antimicrobial agents, with the exception of the newer cephalosporins with anti-MRSA activity, such as Ceftaroline AEROBIC RES 3 Preliminary Streptococcus species 4+ ANTIMICROBIAL SUSCEPTIBILITY Preliminary Comment CONTINUED ON NEXT PAGE RUN DATE: 10/11/18 PAGE 2 RUN TIME: 1611 [facility] [address] [place] [address] Rashi Crowe M.D., Instrument Worker SPEC: [id number] PATIENT: CRIS DONOHUE [id number] ( Continued) Procedure Result ANTIMICROBIAL SUSCEPTIBILITY Preliminary (continued) S = Susceptible; I = Intermediate; R = Resistant P = Positive; N = Negative MICS are expressed in micrograms per mL Antibiotic RSLT#1 RSLT#2 RSLT#3 RSLT#4 Amoxicillin/Clavulanic Acid I =16 Ampicillin R>=32 Cefepime S<=0.12 Ceftriaxone S<=0.25 Cefuroxime S =2 Ciprofloxacin S<=0.25 R>=8 Clindamycin R =R Ertapenem S<=0.12 Erythromycin R>=8 Gentamicin S<=1 S<=0.5 Imipenem S =1 Levofloxacin S<=0.12 R>=8 Linezolid S =2 Meropenem S<=0.25 Oxacillin R>=4 Penicillin R>=0.5 Piperacillin/Tazobactam S<=4 Rifampin S<=0.5 Tetracycline R>=16 S<=1 Tobramycin S<=1 Trimethoprim/Sulfa R>=320 S<=10 Vancomycin S<=0.5 GRAM STAIN Final Final report GRAM STAIN RES 1 Final Comment Many gram positive cocci in pairs, chains, and clusters GRAM STAIN RES 2 Final Comment Rare white blood cells. GRAM STAIN RES 3 Final Comment CONTINUED ON NEXT PAGE RUN DATE: 10/11/18 PAGE 3 RUN TIME: 1611 [facility] [address] [place] [address] Rashi Crowe M.D., Instrument Worker SPEC: [id number] PATIENT: CHARANJITCRIS [id number] ( Continued) Procedure Result GRAM STAIN RES 3 Final (continued) Rare gram negative rods. Performed at: - [facility] [address], [place], [place] [id number] International Marketing Specialist: ANDRY Yancey MD, Phone: [phone] RUN DATE: 10/10/18 PAGE 1 RUN TIME: 1909 [facility] [address] [place] [address] Rashi Crowe M.D., Instrument Worker PATIENT: CRIS DONOHUE ACCT: [id number] LOC: [address] [place] [address] U : [id number] AGE/SX: 53/M ROOM: 578 REG : 10/05/[address]: PAT MOSHER MD : 1965 BED: 1 DIS : STATUS: ADM IN TLOC: SPEC #: [id number] GARY: 10/05/18 STATUS: YISSEL REQ #: [id number] RECD: 10/05/[address] [facility] [address]: PAT MOSHER MD SOURCE: FOOT ENTR: 10/05/[address] [facility] [address]: BRYAN CHEEMA II, MD [facility]: WOUND BECERRA,GAURI R ONDINA PFEIFFER DO ORDERED: ANAER/AEROB/GS Procedure Result ANAEROBIC-AEROBIC CULTURE Final Final report ANAEROBIC RES 1 Final Comment No anaerobic growth in 72 hours. AEROBIC CULT Final Final report AEROBIC RES 1 Final Klebsiella pneumoniae 4+ AEROBIC RES 2 Final Citrobacter braakii 4+ AEROBIC RES 3 Final Comment Methicillin - resistant Staphylococcus aureus 4+ Based on resistance to oxacillin this isolate would be resistant to all currently available beta-lactam antimicrobial agents, with the exception of the newer cephalosporins with anti-MRSA activity, such as Ceftaroline This isolate does not demonstrate inducible clindamycin resistance in vitro by D test. AEROBIC RES 4 Final Enterococcus faecalis CONTINUED ON NEXT PAGE RUN DATE: 10/10/18 PAGE 2 RUN TIME: 1909 [facility] [address] [place] [address] Rashi Crowe M.D., Instrument Worker SPEC: [id number] PATIENT: CRIS DONOHUE [id number] ( Continued) Procedure Result AEROBIC RES 4 Final (continued) 4+ ANTIMICROBIAL SUSCEPTIBILITY Final Comment S = Susceptible; I = Intermediate; R = Resistant P = Positive; N = Negative MICS are expressed in micrograms per mL Antibiotic RSLT#1 RSLT#2 RSLT#3 RSLT#4 Amoxicillin/Clavulanic Acid S<=2 R =R Ampicillin R>=32 Cefazolin R>=64 Cefepime S<=0.12 Ceftriaxone S<=0.25 Cefuroxime S =2 R =R Ciprofloxacin S<=0.25 S<=0.25 R>=8 Clindamycin S<=0.25 Ertapenem S<=0.12 Erythromycin R>=8 Gentamicin S<=1 S<=1 S<=0.5 Imipenem S<=0.25 S =0.5 Levofloxacin S<=0.12 R>=8 Linezolid S =2 Meropenem S<=0.25 S<=0.25 Oxacillin R>=4 Penicillin R>=0.5 S =8 Piperacillin/Tazobactam S<=4 Rifampin S =1 Tetracycline S<=1 S<=1 S =2 Tobramycin S<=1 S<=1 Trimethoprim/Sulfa S<=20 R>=320 S<=10 Vancomycin S<=0.5 S =1 GRAM STAIN Final Final report GRAM STAIN RES 1 Final Comment No white blood cells seen. GRAM STAIN RES 2 Final Comment CONTINUED ON NEXT PAGE RUN DATE: 10/10/18 PAGE 3 RUN TIME: 1909 [facility] [address] [place] [address] Rashi Crowe M.D., Instrument Worker SPEC: [id number] PATIENT: CRIS DONOHUE [id number] ( Continued) Procedure Result GRAM STAIN RES 2 Final (continued) Moderate number of gram positive cocci. 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 MRSA, Citrobacter & Klebsiella from 10/05. MRSA, e fecalis amp sensitive and klebsiella from 10/08 Left foot cellulitis resolved Leukocytosis -improved Poorly controlled DM PVD Tobaccoism h/o noncomplaince Plan: Plan of Care DC Vanc,requiring iv q8hrs daptomycin 6mg/kg/day cont Merrem , transition to invanz before dc home duratin will be 3-4 weeks Monitor labs/renal function Vascular surgery note reviewed has more necrosis of wound and recommending Lt BKA Pt is refusing at this time wants trial with antibiotics antibiotics alone may not be optima d/w pt at length,voices understanding BS control Smoking cessation HBO therapy pt should be at rehab facility ideally or skilled nh halfway prognosis poor secondary to noncomplaince wound vac/wound management per vascular Q FRIDAY LABS CBC/CPK/,BUN/CREAT/ESR./CRP D/W SON DONALDSON MD Oct 14, 2018 11:18
[2018-10-14] MEDS ORDERED: NORMAL SALINE IV SCH (13:00)
[2018-10-14] MEDS ORDERED: DAPTOMYCIN IV SCH (13:00)
[2018-10-14] MEDS ORDERED: ERTAPENEM 1GM IVPB (GENERIC) 50 ML IV ONE (14:00)
[2018-10-14] MEDS ORDERED: ERTA1VIA4 IV (14:10)
[2018-10-14] MEDS ORDERED: DAPT350V IV (14:10)
[2018-10-14 15:00] VITALS: BP 148/76
== END 2018-10-14 18:00 | disposition home health service (06) | DRG 239 ==
LOC: 5 SOUTH 14:38
PROVIDERS: ADMIT Family Medicine; ATTEND Family Medicine
PROC: 0Y6N0ZF Detachment at Left Foot, Partial 5th Ray, Open Approach (ICD-10-PCS; 2018-10-08)
PROC: 0Y6N0ZD Detachment at Left Foot, Partial 4th Ray, Open Approach (ICD-10-PCS; principal; 2018-10-08 07:30)
PROC: 02H633Z Insertion of Infusion Device into Right Atrium, Percutaneous Approach (ICD-10-PCS; 2018-10-13)
DX: E11.52 Type 2 diabetes mellitus with diabetic peripheral angiopathy with gangrene (principal); A48.0 Gas gangrene; M86.8X7 Other osteomyelitis, ankle and foot; L03.116 Cellulitis of left lower limb; L97.424 Non-pressure chronic ulcer of left heel and midfoot with necrosis of bone; E11.69 Type 2 diabetes mellitus with other specified complication; E11.42 Type 2 diabetes mellitus with diabetic polyneuropathy; G89.29 Other chronic pain; E78.5 Hyperlipidemia, unspecified; H54.7 Unspecified visual loss; I10 Essential (primary) hypertension; F17.200 Nicotine dependence, unspecified, uncomplicated; E11.65 Type 2 diabetes mellitus with hyperglycemia; E11.621 Type 2 diabetes mellitus with foot ulcer; Z82.49 Family history of ischemic heart disease and other diseases of the circulatory system; Z89.439 Acquired absence of unspecified foot; Z89.429 Acquired absence of other toe(s), unspecified side; Z91.19 Patient's noncompliance with other medical treatment and regimen; Z90.01 Acquired absence of eye; Z88.8 Allergy status to other drugs, medicaments and biological substances; Z79.899 Other long term (current) drug therapy; Z71.6 Tobacco abuse counseling
CPT/HCPCS: 36415; 36569; 71045; 73630; 80048; 80053; 80202; 81001; 82565; 82962; 83036; 83605; 85007; 85025; 85027; 85651; 87040; 87071; 87075; 87186; 88305; 88311; 93923; 99406; J0878; J1100; J1335; J1815; J2185; J2250; J2370; J2405; J2543; J2704; J3010; J3370; J3490; J7040; J7050; J7120; J7030

== ENCOUNTER → 2018-10-19 | Outpatient (CLI) | payer BC ==
[2018-10-14 15:00] VITALS: BP 148/76
[~2018-10-19] MED LIST changes: +DAPT350V IV; +ERTA1VIA4 IV; -OXYC-328 PO; +OXYC1TAB22 PO
== END | disposition home or self-care (01) ==
LOC: PMGWOUND 11:05
PROVIDERS: ATTEND Emergency Medicine Undersea and Hyperbaric Medicine
DX: T87.89 Other complications of amputation stump (principal); E11.621 Type 2 diabetes mellitus with foot ulcer; L97.424 Non-pressure chronic ulcer of left heel and midfoot with necrosis of bone; L97.521 Non-pressure chronic ulcer of other part of left foot limited to breakdown of skin; L97.512 Non-pressure chronic ulcer of other part of right foot with fat layer exposed; E11.622 Type 2 diabetes mellitus with other skin ulcer; L97.311 Non-pressure chronic ulcer of right ankle limited to breakdown of skin; E11.52 Type 2 diabetes mellitus with diabetic peripheral angiopathy with gangrene; A48.0 Gas gangrene; E11.69 Type 2 diabetes mellitus with other specified complication; M86.8X7 Other osteomyelitis, ankle and foot; E11.42 Type 2 diabetes mellitus with diabetic polyneuropathy; E11.65 Type 2 diabetes mellitus with hyperglycemia; E78.5 Hyperlipidemia, unspecified; G89.29 Other chronic pain; F17.210 Nicotine dependence, cigarettes, uncomplicated; Y83.5 Amputation of limb(s) as the cause of abnormal reaction of the patient, or of later complication, without mention of misadventure at the time of the procedure
CPT/HCPCS: 97597; 97598; 97605

== ENCOUNTER → 2018-10-26 | Outpatient (CLI) | payer BC ==
[2018-10-14 15:00] VITALS: BP 148/76
== END | disposition home or self-care (01) ==
LOC: PMGWOUND 10:37
PROVIDERS: ATTEND Emergency Medicine Undersea and Hyperbaric Medicine
DX: T87.89 Other complications of amputation stump (principal); E11.621 Type 2 diabetes mellitus with foot ulcer; L97.424 Non-pressure chronic ulcer of left heel and midfoot with necrosis of bone; L97.512 Non-pressure chronic ulcer of other part of right foot with fat layer exposed; S81.802D Unspecified open wound, left lower leg, subsequent encounter; E11.65 Type 2 diabetes mellitus with hyperglycemia; E11.69 Type 2 diabetes mellitus with other specified complication; M86.8X7 Other osteomyelitis, ankle and foot; E11.42 Type 2 diabetes mellitus with diabetic polyneuropathy; E11.52 Type 2 diabetes mellitus with diabetic peripheral angiopathy with gangrene; A48.0 Gas gangrene; L84 Corns and callosities; G89.29 Other chronic pain; E78.5 Hyperlipidemia, unspecified; F17.210 Nicotine dependence, cigarettes, uncomplicated; Y83.5 Amputation of limb(s) as the cause of abnormal reaction of the patient, or of later complication, without mention of misadventure at the time of the procedure; X58.XXXD Exposure to other specified factors, subsequent encounter
CPT/HCPCS: 97597; 97598; 97605

== ENCOUNTER → 2018-11-02 | Outpatient (CLI) | payer BC ==
[2018-10-14 15:00] VITALS: BP 148/76
== END | disposition home or self-care (01) ==
LOC: PMGWOUND 09:25
PROVIDERS: ATTEND Emergency Medicine Undersea and Hyperbaric Medicine
DX: T87.89 Other complications of amputation stump (principal); E11.621 Type 2 diabetes mellitus with foot ulcer; L97.525 Non-pressure chronic ulcer of other part of left foot with muscle involvement without evidence of necrosis; L97.512 Non-pressure chronic ulcer of other part of right foot with fat layer exposed; L97.424 Non-pressure chronic ulcer of left heel and midfoot with necrosis of bone; S81.802D Unspecified open wound, left lower leg, subsequent encounter; E11.69 Type 2 diabetes mellitus with other specified complication; M86.8X7 Other osteomyelitis, ankle and foot; E11.42 Type 2 diabetes mellitus with diabetic polyneuropathy; E11.52 Type 2 diabetes mellitus with diabetic peripheral angiopathy with gangrene; A48.0 Gas gangrene; L84 Corns and callosities; F17.210 Nicotine dependence, cigarettes, uncomplicated; E78.5 Hyperlipidemia, unspecified; G89.29 Other chronic pain; Z89.422 Acquired absence of other left toe(s); Y83.5 Amputation of limb(s) as the cause of abnormal reaction of the patient, or of later complication, without mention of misadventure at the time of the procedure
CPT/HCPCS: 11042; 11045; 97606

== ENCOUNTER → 2018-11-04 | Outpatient (CLI) | payer BC ==
[2018-10-14 15:00] VITALS: BP 148/76
== END | disposition home or self-care (01) ==
LOC: PMGWOUND 08:39
PROVIDERS: ATTEND Preventive Medicine Undersea and Hyperbaric Medicine
DX: E11.621 Type 2 diabetes mellitus with foot ulcer (principal); L97.524 Non-pressure chronic ulcer of other part of left foot with necrosis of bone; L97.512 Non-pressure chronic ulcer of other part of right foot with fat layer exposed; L97.424 Non-pressure chronic ulcer of left heel and midfoot with necrosis of bone; E11.52 Type 2 diabetes mellitus with diabetic peripheral angiopathy with gangrene; A48.0 Gas gangrene; E11.69 Type 2 diabetes mellitus with other specified complication; M86.8X7 Other osteomyelitis, ankle and foot; E11.42 Type 2 diabetes mellitus with diabetic polyneuropathy; E11.65 Type 2 diabetes mellitus with hyperglycemia; L84 Corns and callosities; G89.29 Other chronic pain; E78.5 Hyperlipidemia, unspecified; F17.210 Nicotine dependence, cigarettes, uncomplicated; Z89.422 Acquired absence of other left toe(s); Y83.8 Other surgical procedures as the cause of abnormal reaction of the patient, or of later complication, without mention of misadventure at the time of the procedure
CPT/HCPCS: 97606

== ENCOUNTER → 2018-11-06 | Outpatient (CLI) | payer BC ==
[2018-10-14 15:00] VITALS: BP 148/76
== END | disposition home or self-care (01) ==
LOC: PMGWOUND 08:30
PROVIDERS: ATTEND Emergency Medicine Undersea and Hyperbaric Medicine
DX: T87.89 Other complications of amputation stump (principal); E11.621 Type 2 diabetes mellitus with foot ulcer; L97.512 Non-pressure chronic ulcer of other part of right foot with fat layer exposed; L97.424 Non-pressure chronic ulcer of left heel and midfoot with necrosis of bone; L97.525 Non-pressure chronic ulcer of other part of left foot with muscle involvement without evidence of necrosis; L84 Corns and callosities; E11.69 Type 2 diabetes mellitus with other specified complication; M86.8X7 Other osteomyelitis, ankle and foot; E11.52 Type 2 diabetes mellitus with diabetic peripheral angiopathy with gangrene; A48.0 Gas gangrene; E11.65 Type 2 diabetes mellitus with hyperglycemia; G89.29 Other chronic pain; E78.5 Hyperlipidemia, unspecified; F17.210 Nicotine dependence, cigarettes, uncomplicated; Z89.422 Acquired absence of other left toe(s); Y83.5 Amputation of limb(s) as the cause of abnormal reaction of the patient, or of later complication, without mention of misadventure at the time of the procedure
CPT/HCPCS: 97605; 97606

== ENCOUNTER → 2018-11-09 | Outpatient (CLI) | payer BC ==
[2018-10-14 15:00] VITALS: BP 148/76
== END | disposition home or self-care (01) ==
LOC: PMGWOUND 08:43
PROVIDERS: ATTEND Emergency Medicine Undersea and Hyperbaric Medicine
DX: T87.89 Other complications of amputation stump (principal); E11.621 Type 2 diabetes mellitus with foot ulcer; L97.525 Non-pressure chronic ulcer of other part of left foot with muscle involvement without evidence of necrosis; L97.512 Non-pressure chronic ulcer of other part of right foot with fat layer exposed; L97.424 Non-pressure chronic ulcer of left heel and midfoot with necrosis of bone; E11.69 Type 2 diabetes mellitus with other specified complication; M86.8X7 Other osteomyelitis, ankle and foot; E11.65 Type 2 diabetes mellitus with hyperglycemia; E11.42 Type 2 diabetes mellitus with diabetic polyneuropathy; E11.52 Type 2 diabetes mellitus with diabetic peripheral angiopathy with gangrene; A48.0 Gas gangrene; L84 Corns and callosities; I10 Essential (primary) hypertension; G89.29 Other chronic pain; E78.5 Hyperlipidemia, unspecified; F17.210 Nicotine dependence, cigarettes, uncomplicated; Z89.422 Acquired absence of other left toe(s); Y83.5 Amputation of limb(s) as the cause of abnormal reaction of the patient, or of later complication, without mention of misadventure at the time of the procedure
CPT/HCPCS: 99213

== ENCOUNTER 2019-04-23 14:57 | Inpatient (IN) | payer BC, OTHER ==
[~2019-04-23] VITALS: Ht 177.8 cm; Wt 70.3 kg
[2019-04-23 19:00] VITALS: BP 120/55
[2019-04-23] MEDS ORDERED: OXYC15TA PO (19:23)
[2019-04-23] MEDS ORDERED: [UNRECOGNIZED DRUG - CODE] OS (20:44)
[2019-04-23 23:00] VITALS: BP 121/59
[2019-04-23] MEDS ORDERED: PIPERACILLIN/TAZOBACTAM 3.375 GM in IV NORMAL SALINE 50ML 50 ML IV ONE (23:00)
[2019-04-23] MEDS ORDERED: VANCOMYCIN 1.75 GM in IV NORMAL SALINE 500ML BAG 500 ML IV ONE (23:30)
[2019-04-23 23:44] LABS: BASO # 0.1 x10^3/uL (0.0-0.2); BASO % 0 % (0-3); EOS % 0 % (0-3); HEMATOCRIT 32.2 % (39.0-53.0); HEMOGLOBIN 10.5 g/dL (13.0-17.5); LYMPH # 1.2 x10^3/uL (1.0-4.8); LYMPH % 5 % (24-48); MEAN CORPUSCULAR HEMOGLOBIN 29 pg (25-35); MEAN CORPUSCULAR HGB CONC 33 g/dL (31-37); MEAN CORPUSCULAR VOLUME 87 fL (79-100); MONO # 1.6 x10^3/uL (0.0-1.1); MONO % 7 % (0-9); NEUT # 21.1 x10^3uL (1.8-7.7); NEUT % 88 % (31-73); PLATELET COUNT 333 x10^3/uL (140-400); RED BLOOD COUNT 3.68 x10^6/uL (4.30-5.70); WHITE BLOOD COUNT 24.1 x10^3/uL (4.0-11.0)
[2019-04-24 00:05] LABS: ALBUMIN 1.6 g/dL (3.4-5.0); ALBUMIN/GLOBULIN RATIO 0.3 (1.0-1.7); CALCIUM 8.9 mg/dL (8.5-10.1); CREATININE 0.7 mg/dL (0.7-1.3); GFR 118.9; POTASSIUM 4.8 mmol/L (3.5-5.1); TOTAL BILIRUBIN 0.5 mg/dL (0.2-1.0); TOTAL PROTEIN 6.6 g/dL (6.4-8.2)
[2019-04-24] MEDS: oxyCODONE IR 5 MG TABLET PO PRN ×4 (00:05→23:52)
[2019-04-24] MEDS: VANCOMYCIN PER PHARMACY MC PRN ×2 (02:59→14:45)
[2019-04-24 03:00] VITALS: BP 112/57
--- NOTE | 2019-04-24 03:00 | NUR ---
Pharmacy Vancomycin Dosing Note S:Consulted to monitor and dose vancomycin started 04/24/19. O:CRIS DONOHUE is a 53 year old M with Abscess ON RT UPPER BACK . Height: 5 feet, 10 inches Weight: 64.248323 kg [place] Body Weight: 73.00 Adjusted Body Weight: 69.72 Dosing Weight: Actual Other Antibiotics: ZOSYN 3.375GM IV Q8H LABS: Last BUN: 15.0 Last Creatinine: 0.7 Creatinine Clearance: >100 mL/min Last WBC: 24.1 Last Procalcitonin: Tmax (past 24 hours): Microbiology: I/O: Drug Levels: Last level: on at Last dose given at Vancomycin Dosing: Loading Dose: 1750 mg x1 04/24/19 0130 Dosing Weight: Actual Target Trough: 10-20 A: Based on: Actual Wt and CrCl P: 1. 04/24/19 1330 Vancomycin 1000 mg IV q12h 2. Follow up Trough level on 04/25/19 at 1300 3. Pharmacy will continue to monitor, follow and adjust therapy as needed. TENZIN HERNÁNDEZ RPH, 04/24/19 0300 Signed: 04/24/19 at 0301 by TENZIN HERNÁNDEZ RPH PHA
[2019-04-24 04:35] LABS: % LYMPHS 10 % (24-48); % MONOS 2 % (0-10); % SEGS 88 % (35-66)
[2019-04-24 04:36] LABS: PLT ESTIMATE ADEQUATE (ADEQUATE)
[2019-04-24] MEDS: PIPERACILLIN/TAZOBACTAM 3.375 GM in IV NORMAL SALINE 50ML 50 ML IV SCH ×3 (06:22→22:41)
[2019-04-24 07:00] VITALS: BP 90/53
[2019-04-24] MEDS: CENEGERMIN BKBJ OS SCH ×6 (08:56→20:26)
[2019-04-24] MEDS: LACTOBACILLUS RHAMNOSUS GG 1 CAPSULE. PO SCH ×2 (09:02→20:26)
[2019-04-24] MEDS: INSULIN LISPRO 300 UNITS/3 ML INSULN.PEN. SQ SCH ×3 (09:10→17:37)
--- NOTE | 2019-04-24 10:34 | PDOC2 ---
CONSULT Date of Consult Date of Consult DATE: 04/24/19 TIME: 10:30 Reason for Consult Reason for Consult: Abscess of the upper back Referring Physician Referring Physician: Clarence Identification/Chief Complaint Chief Complaint Draining wound on upper back Source Source: Patient History of Present Illness Reason for Visit: 53-year-old male with long history for orthopedics amputation and multiple skin abscesses severe diabetic poorly controlled. Admitted the hospital with elevated blood sugars as well as a large upper back abscess cellulitis. Past Medical History Cardiovascular: HTN, Hyperlipidemia, Other Pulmonary: No pertinent hx CENTRAL NERVOUS SYSTEM: Periperal neuropathy Endocrine: Diabetes Past Surgical History Past Surgical History: Other Family History Family History: Hypertension Social History ALCOHOL: occassional Drugs: None Lives: Alone Current Medications Current Medications Current Medications Non-Formulary Medication (Cenegermin-Bkbj (Oxervate)) 0.05 ml DAILY@0800,1000,1200 OS Last administered on 04/24/19at 08:56; Start 04/24/19 at 08:00 Insulin Glargine (Lantus) 50 units QHS SQ ; Start 04/24/19 at 21:00 Insulin Human Lispro (HumaLOG) 60 units TIDBFRMEAL SQ Last administered on 04/24/19at 09:10; Start 04/24/19 at 07:30 Oxycodone HCl (Roxicodone) 15 mg PRN Q4HRS PRN PO PAIN Last administered on 04/24/19at 09:03; Start 04/23/19 at 22:15 Vancomycin HCl (Vanco Per Pharmacy) 1 each PRN DAILY PRN MC SEE COMMENTS Last administered on 04/24/19at 02:59; Start 04/23/19 at 22:30 Piperacillin Sod/ Tazobactam Sod 3.375 gm/Sodium Chloride 50 ml @ 100 mls/hr Q8HRS IV Last administered on 04/24/19at 06:22; Start 04/24/19 at 06:00 Piperacillin Sod/ Tazobactam Sod 3.375 gm/Sodium Chloride 50 ml @ 100 mls/hr ONCE ONCE IV Last administered on 04/23/19at 23:55; Start 04/23/19 at 23:00; Stop 04/23/19 at 23:29; Status DC Vancomycin HCl 1.75 gm/Sodium Chloride 500 ml @ 250 mls/hr 1X ONCE IV Last administered on 04/24/19at 01:24; Start 04/23/19 at 23:30; Stop 04/24/19 at 01:31; Status DC Non-Formulary Medication (Cenegermin-Bkbj (Oxervate)) 0.05 ml DAILY@1400,1600,2000 OS ; Start 04/24/19 at 14:00 Vancomycin HCl 1 gm/Sodium Chloride 250 ml @ 250 mls/hr Q12H IV ; Start 04/24/19 at 13:30 Vancomycin HCl (Vancomycin Trough Level) 1 each 1X ONCE MC ; Start 04/26/19 at 13:00; Stop 04/26/19 at 13:01 Lactobacillus Rhamnosus (Culturelle) 1 cap BID PO Last administered on 04/24/19at 09:02; Start 04/24/19 at 09:00 Active Scripts Active Reported Oxervate (Cenegermin-Bkbj) 1 Ml Drops 1 Ml OS 6XDAY 30 Days Oxycodone Hcl Immed.release (Oxycodone Hcl) 15 Mg Tablet 15 Mg PO PRN Q4HRS PRN Tresiba Flextouch U-100 (Insulin Degludec) 100 Unit/1 Ml Insuln.pen 50 Unit SQ HS Humalog (Insulin Lispro) 100 Unit/1 Ml Cartridge 60 Unit SQ TIDBFRMEAL Allergies Allergies: Coded Allergies: sulfamethoxazole (Verified Allergy, Intermediate, Rash, 02/13/18) trimethoprim (Verified Allergy, Intermediate, Rash, 02/13/18) I S O L A T I O N *CONTACT* (Verified Allergy, Unknown, 04/13/18) mrsa ROS Skin: Yes Other (skin abscesses and infections) Physical Exam General: Alert, Oriented X3, Cooperative, mild distress HEENT: Atraumatic, PERRLA, EOMI Lungs: Clear to auscultation, Normal air movement Heart: Regular rate, No murmurs Abdomen: Normal bowel sounds, Soft, No tenderness Extremities: Other (swelling of the right hand) Skin: Other (large area of erythema with purulent drainage from a large mass of her back) Vitals VITALS Vital Signs Date Time Temp Pulse Resp B/P (MAP) Pulse Ox O2 Delivery O2 Flow Rate FiO2 04/24/19 09:03 20 98 Room Air 04/24/19 07:00 98.2 110 90/53 (65) 98.2 Labs Labs Laboratory Tests Test 04/23/19 21:09 04/23/19 23:35 04/24/19 08:07 Glucose (Fingerstick) 261 mg/dL (70-99) 434 mg/dL (70-99) White Blood Count 24.1 x10^3/uL (4.0-11.0) Red Blood Count 3.68 x10^6/uL (4.30-5.70) Hemoglobin 10.5 g/dL (13.0-17.5) Hematocrit 32.2 % (39.0-53.0) Mean Corpuscular Volume 87 fL (79-100) Mean Corpuscular Hemoglobin 29 pg (25-35) Mean Corpuscular Hemoglobin Concent 33 g/dL (31-37) Red Cell Distribution Width 14.0 % (11.5-14.5) Platelet Count 333 x10^3/uL (140-400) Neutrophils (%) (Auto) 88 % (31-73) Lymphocytes (%) (Auto) 5 % (24-48) Monocytes (%) (Auto) 7 % (0-9) Eosinophils (%) (Auto) 0 % (0-3) Basophils (%) (Auto) 0 % (0-3) Neutrophils # (Auto) 21.1 x10^3uL (1.8-7.7) Lymphocytes # (Auto) 1.2 x10^3/uL (1.0-4.8) Monocytes # (Auto) 1.6 x10^3/uL (0.0-1.1) Eosinophils # (Auto) 0.0 x10^3/uL (0.0-0.7) Basophils # (Auto) 0.1 x10^3/uL (0.0-0.2) Segmented Neutrophils % 88 % (35-66) Lymphocytes % 10 % (24-48) Monocytes % 2 % (0-10) Platelet Estimate Adequate (ADEQUATE) Erythrocyte Sedimentation Rate 115 (0-15) Sodium Level 125 mmol/L (136-145) Potassium Level 4.8 mmol/L (3.5-5.1) Chloride Level 91 mmol/L (98-107) Carbon Dioxide Level 27 mmol/L (21-32) Anion Gap 7 (6-14) Blood Urea Nitrogen 15 mg/dL (8-26) Creatinine 0.7 mg/dL (0.7-1.3) Estimated GFR (Cockcroft-Gault) 118.9 BUN/Creatinine Ratio 21 (6-20) Glucose Level 308 mg/dL (70-99) Calcium Level 8.9 mg/dL (8.5-10.1) Total Bilirubin 0.5 mg/dL (0.2-1.0) Aspartate Amino Transf (AST/SGOT) 17 U/L (15-37) Alanine Aminotransferase (ALT/SGPT) 16 U/L (16-63) Alkaline Phosphatase 184 U/L (46-116) Total Protein 6.6 g/dL (6.4-8.2) Albumin 1.6 g/dL (3.4-5.0) Albumin/Globulin Ratio 0.3 (1.0-1.7) Laboratory Tests Test 04/23/19 21:09 04/23/19 23:35 04/24/19 08:07 Glucose (Fingerstick) 261 mg/dL (70-99) 434 mg/dL (70-99) White Blood Count 24.1 x10^3/uL (4.0-11.0) Red Blood Count 3.68 x10^6/uL (4.30-5.70) Hemoglobin 10.5 g/dL (13.0-17.5) Hematocrit 32.2 % (39.0-53.0) Mean Corpuscular Volume 87 fL (79-100) Mean Corpuscular Hemoglobin 29 pg (25-35) Mean Corpuscular Hemoglobin Concent 33 g/dL (31-37) Red Cell Distribution Width 14.0 % (11.5-14.5) Platelet Count 333 x10^3/uL (140-400) Neutrophils (%) (Auto) 88 % (31-73) Lymphocytes (%) (Auto) 5 % (24-48) Monocytes (%) (Auto) 7 % (0-9) Eosinophils (%) (Auto) 0 % (0-3) Basophils (%) (Auto) 0 % (0-3) Neutrophils # (Auto) 21.1 x10^3uL (1.8-7.7) Lymphocytes # (Auto) 1.2 x10^3/uL (1.0-4.8) Monocytes # (Auto) 1.6 x10^3/uL (0.0-1.1) Eosinophils # (Auto) 0.0 x10^3/uL (0.0-0.7) Basophils # (Auto) 0.1 x10^3/uL (0.0-0.2) Segmented Neutrophils % 88 % (35-66) Lymphocytes % 10 % (24-48) Monocytes % 2 % (0-10) Platelet Estimate Adequate (ADEQUATE) Erythrocyte Sedimentation Rate 115 (0-15) Sodium Level 125 mmol/L (136-145) Potassium Level 4.8 mmol/L (3.5-5.1) Chloride Level 91 mmol/L (98-107) Carbon Dioxide Level 27 mmol/L (21-32) Anion Gap 7 (6-14) Blood Urea Nitrogen 15 mg/dL (8-26) Creatinine 0.7 mg/dL (0.7-1.3) Estimated GFR (Cockcroft-Gault) 118.9 BUN/Creatinine Ratio 21 (6-20) Glucose Level 308 mg/dL (70-99) Calcium Level 8.9 mg/dL (8.5-10.1) Total Bilirubin 0.5 mg/dL (0.2-1.0) Aspartate Amino Transf (AST/SGOT) 17 U/L (15-37) Alanine Aminotransferase (ALT/SGPT) 16 U/L (16-63) Alkaline Phosphatase 184 U/L (46-116) Total Protein 6.6 g/dL (6.4-8.2) Albumin 1.6 g/dL (3.4-5.0) Albumin/Globulin Ratio 0.3 (1.0-1.7) Assessment/Plan Assessment/Plan Abscess of the upper back plan incision and drainage with debridement tomorrow as patient has had full breakfast this morning MALLIKA SUÁREZ MD Apr 24, 2019 10:34
[2019-04-24 11:00] VITALS: BP 101/51
--- NOTE | 2019-04-24 12:06 | HP ---
ADMIT DATE: CHIEF COMPLAINT AND HISTORY OF PRESENT ILLNESS: This 53-year-old white male is well known to follow up in our office. The patient was seen on the day of admission by one of our nurse practitioners' who was found to have large abscess on his right upper back. It was felt that it would need debridement surgically and the patient was admitted for the same. PAST MEDICAL HISTORY: Extensive and documented on old charts. He has longstanding diabetes, poor compliance with Medicine for the same, has had eye infection with nearly loss of his eyes as well as sight in the one eye. He has got severe peripheral neuropathy, not only involving the legs, but involving his hands with no feeling. He has a history of coronary artery disease, peripheral vascular disease with amputations with a [id number] amputation and multiple toe amputations on the remaining foot. He has hyperlipidemia, hypertension, he has had chronic lumbar radiculopathy with back surgery for the same and a failed back syndrome. He has a history of ADD as well as depression, anxiety, tobacco use disorder, and history of C. diff. MEDICATIONS: Brought with the patient, listed on the computer and have been addressed. ALLERGIES: INCLUDE BACTRIM. SOCIAL HISTORY: He continues to smoke despite all of his above problems. He does not abuse alcohol or drugs. FAMILY HISTORY: Noncontributory. REVIEW OF SYSTEMS: Remarkable for pain in the back. He has generally felt crummy with some hot and cold spells. Upon looking his right third finger, it is mangled, and when asking what has happened that that appears infected. He states, it feels like when he was soldering, it must have caught on fire and he did not feel it. PHYSICAL EXAMINATION: GENERAL: He is a thin progressively cachectic appearing white male, in no acute distress, lying in bed. VITAL SIGNS: Stable. He is afebrile since admission. HEAD, EYES, EARS, NOSE AND THROAT: Remarkable for the eye problems as listed above. NECK: Supple, without thyromegaly. CHEST: Clear to auscultation and percussion. HEART: Regular rate and rhythm without S3, S4, or murmur. ABDOMEN: Soft, nontender, without hepatosplenomegaly or masses. EXTREMITIES: Reveal below the knee amputation as well as multiple toes missing from the other foot and abrasions present on both legs. Right middle finger is infected, swollen and appears mangled from something. He does have the cellulitis covering at least 6-8 inches around an abscess on his right upper back. NEUROLOGIC: Nonfocal. IMPRESSION: 1. Abscess, right upper back. 2. Right third finger infection with trauma. 3. Diabetes. 4. Multiple other problems listed above. 5. Leukocytosis with white count of 24,000 on admission. 6. Hyponatremia with sodium of 125 on admission of uncertain etiology. 7. Severe protein-calorie malnutrition with albumin of 1.6 on admission. PLAN: IV antibiotics, currently Zosyn and vancomycin. Cultures have been obtained. Surgical consult is in for debridement. I am going to ask Ortho to see him for the fingers, suggestions for the same. ID will also be asked to see him and the patient will be managed and treated appropriately. PTA MOSHER MD DR: MEHRAN/denise JOB#: [id number] / [id number]
[2019-04-24] MEDS: VANCOMYCIN 1 GM in IV NORMAL SALINE 250ML 250 ML IV SCH (13:36)
--- NOTE | 2019-04-24 14:20 | PDOC ---
Infectious Disease Note Vital Sign Vital Signs Vital Signs Date Time Temp Pulse Resp B/P (MAP) Pulse Ox O2 Delivery O2 Flow Rate FiO2 04/24/19 11:00 99.5 115 18 101/51 (68) 100 Room Air 99.5 Labs Lab Laboratory Tests Test 04/23/19 21:09 04/23/19 23:35 04/24/19 08:07 04/24/19 11:44 Glucose (Fingerstick) 261 mg/dL (70-99) 434 mg/dL (70-99) 267 mg/dL (70-99) White Blood Count 24.1 x10^3/uL (4.0-11.0) Red Blood Count 3.68 x10^6/uL (4.30-5.70) Hemoglobin 10.5 g/dL (13.0-17.5) Hematocrit 32.2 % (39.0-53.0) Mean Corpuscular Volume 87 fL (79-100) Mean Corpuscular Hemoglobin 29 pg (25-35) Mean Corpuscular Hemoglobin Concent 33 g/dL (31-37) Red Cell Distribution Width 14.0 % (11.5-14.5) Platelet Count 333 x10^3/uL (140-400) Neutrophils (%) (Auto) 88 % (31-73) Lymphocytes (%) (Auto) 5 % (24-48) Monocytes (%) (Auto) 7 % (0-9) Eosinophils (%) (Auto) 0 % (0-3) Basophils (%) (Auto) 0 % (0-3) Neutrophils # (Auto) 21.1 x10^3uL (1.8-7.7) Lymphocytes # (Auto) 1.2 x10^3/uL (1.0-4.8) Monocytes # (Auto) 1.6 x10^3/uL (0.0-1.1) Eosinophils # (Auto) 0.0 x10^3/uL (0.0-0.7) Basophils # (Auto) 0.1 x10^3/uL (0.0-0.2) Segmented Neutrophils % 88 % (35-66) Lymphocytes % 10 % (24-48) Monocytes % 2 % (0-10) Platelet Estimate Adequate (ADEQUATE) Erythrocyte Sedimentation Rate 115 (0-15) Sodium Level 125 mmol/L (136-145) Potassium Level 4.8 mmol/L (3.5-5.1) Chloride Level 91 mmol/L (98-107) Carbon Dioxide Level 27 mmol/L (21-32) Anion Gap 7 (6-14) Blood Urea Nitrogen 15 mg/dL (8-26) Creatinine 0.7 mg/dL (0.7-1.3) Estimated GFR (Cockcroft-Gault) 118.9 BUN/Creatinine Ratio 21 (6-20) Glucose Level 308 mg/dL (70-99) Calcium Level 8.9 mg/dL (8.5-10.1) Total Bilirubin 0.5 mg/dL (0.2-1.0) Aspartate Amino Transf (AST/SGOT) 17 U/L (15-37) Alanine Aminotransferase (ALT/SGPT) 16 U/L (16-63) Alkaline Phosphatase 184 U/L (46-116) Total Protein 6.6 g/dL (6.4-8.2) Albumin 1.6 g/dL (3.4-5.0) Albumin/Globulin Ratio 0.3 (1.0-1.7) Objective Assessment Large abscess, right upper back Right third finger burn after soldering 2 weeks ago Leukocytosis Diabetes with peripheral neuropathy Allergy to Bactrim h/o MRSA, klebsiella, E. faecalis (S-PCN), Citrobacter, group B strep Plan Plan of Care vanc and Zosyn Cultures pending I and D w/ debridement planned for tomorrow Monitor WBC/temp and renal function closely Await ortho evaluation Local wound care Glycemic control D/w nursing Thank you Attending Co-Sign Attending Co-Sign The patient was seen and interviewed as well as examined at the bedside. The chart was reviewed. The case was discussed. Agree with the plan of care. MAGGI NEWMAN APRN Apr 24, 2019 14:20 BREANNE BRUNSON MD Apr 24, 2019 17:22
[2019-04-24 15:00] VITALS: BP 125/71
[2019-04-24 19:00] VITALS: BP 109/62
[2019-04-24] MEDS: INSULIN GLARGINE 300 UNITS/3 ML INSULN.PEN. SQ SCH (20:26)
--- NOTE | 2019-04-24 21:20 | PDOC2 ---
CONSULT Date of Consult Date of Consult DATE: 04/24/19 TIME: 21:12 Reason for Consult Reason for Consult: R 3rd finger infection Referring Physician Referring Physician: Clarence Identification/Chief Complaint Chief Complaint Upper thoracic pain Source Source: Chart review, Patient History of Present Illness Reason for Visit: Patient is a 53 yo M with hx of DM who is well known to myself and present to his PCP office with complaints of upper back pain and found to have an abscess and was admitted for that reason. it was discovered he also had a swollen R 3rd digit and I was asked to see him regarding this issue. He mentions that he burnt his finger maybe 5 days ago. He denies pain in his hand or finger, but tells me it aches and he "feels it". He has not noted any drainage. He has not sought any care for this problem. He has not noted any redness moving into his hand/palm or forearm. Past Medical History Cardiovascular: HTN, Hyperlipidemia, Other Pulmonary: No pertinent hx CENTRAL NERVOUS SYSTEM: Periperal neuropathy Endocrine: Diabetes Past Surgical History Past Surgical History: Other Family History Family History: Hypertension Social History ALCOHOL: occassional Drugs: None Lives: Alone Current Medications Current Medications Current Medications Non-Formulary Medication (Cenegermin-Bkbj (Oxervate)) 0.05 ml DAILY@0800,1000,1200 OS Last administered on 04/24/19at 12:35; Start 04/24/19 at 0 8:00 Insulin Glargine (Lantus) 50 units QHS SQ ; Start 04/24/19 at 21:00 Insulin Human Lispro (HumaLOG) 60 units TIDBFRMEAL SQ Last administered on 04/24/19at 12:43; Start 04/24/19 at 07:30 Oxycodone HCl (Roxicodone) 15 mg PRN Q4HRS PRN PO PAIN Last administered on 04/24/19at 17:40; Start 04/23/19 at 22:15 Vancomycin HCl (Vanco Per Pharmacy) 1 each PRN DAILY PRN MC SEE COMMENTS Last a dministered on 04/24/19at 14:45; Start 04/23/19 at 22:30 Piperacillin Sod/ Tazobactam Sod 3.375 gm/Sodium Chloride 50 ml @ 100 mls/hr Q8HRS IV Last administered on 04/24/19at 14:49; Start 04/24/19 at 06:00 Piperacillin Sod/ Tazobactam Sod 3.375 gm/Sodium Chloride 50 ml @ 100 mls/hr ONCE ONCE IV Last administered on 04/23/19at 23:55; Start 04/23/19 at 23:00; Stop 04/23/19 at 23:29; Status DC Vancomycin HCl 1.75 gm/Sodium Chloride 500 ml @ 250 mls/hr 1X ONCE IV Last administered on 04/24/19at 01:24; Start 04/23/19 at 23:30; Stop 04/24/19 at 01:31; Status DC Non-Formulary Medication (Cenegermin-Bkbj (Oxervate)) 0.05 ml DAILY@1400,1600 ,2000 OS Last administered on 04/24/19at 20:26; Start 04/24/19 at 14:00 Vancomycin HCl 1 gm/Sodium Chloride 250 ml @ 250 mls/hr Q12H IV Last administered on 04/24/19at 13:36; Start 04/24/19 at 13:30 Vancomycin HCl (Vancomycin Trough Level) 1 each 1X ONCE MC ; Start 04/26/19 at 13:00; Stop 04/26/19 at 13:01 Lactobacillus Rhamnosus (Culturelle) 1 cap BID PO Last administered on 04/24/19at 20:26; Start 04/24/19 at 09:00 Active Scripts Active Reported Oxervate (Cenegermin-Bkbj) 1 Ml Drops 1 Ml OS 6XDAY 30 Days Oxycodone Hcl Immed.release (Oxycodone Hcl) 15 Mg Tablet 15 Mg PO PRN Q4HRS PRN Tresiba Flextouch U-100 (Insulin Degludec) 100 Unit/1 Ml Insuln.pen 50 Unit SQ HS Humalog (Insulin Lispro) 100 Unit/1 Ml Cartridge 60 Unit SQ TIDBFRMEAL Allergies Allergies: Coded Allergies: sulfamethoxazole (Verified Allergy, Intermediate, Rash, 02/13/18) trimethoprim (Verified Allergy, Intermediate, Rash, 02/13/18) I S O L A T I O N *CONTACT* (Verified Allergy, Unknown, 04/13/18) mrsa ROS General: No: Chills, Night Sweats, Fatigue, Malaise, Appetite, Other PSYCHOLOGICAL ROS: No: Anxiety, Behavioral Disorder, Concentration difficultie, Decreased libido, Depression, Disorientation, Hallucinations, Hostility, Irritablity, Memory difficulties, Mood Swings, Obsessive thoughts, Physical abuse, Sexual abuse, Sleep disturbances, Suicidal ideation, Other Eyes: Yes Blurry vision HEENT: No: Heacaches, Visual Changes, Hearing change, Nasal congestion, Nasal discharge, Oral lesions, Sinus pain, Sore Throat, Epistaxis, Sneezing, Snoring, Tinnitus, Vertigo, Vocal changes, Other ALLERGY AND IMMUNOLOGY: No: Hives, Insect Bite Sensitivity, Itchy/Watery Eyes, Nasal Congestion, Post Nasal Drip, Seasonal Allergies, Other Hematological and Lymphatic: No: Bleeding Problems, Blood Clots, Blood Transfusions, Brusing, Night Sweats, Pallor, Swollen Lymph Nodes, Other Respiratory: No: Cough, Hemoptysis, Orthopnea, Pleuritic Pain, Shortness of breath, SOB with excertion, Sputum Changes, Stridor, Tachypnea, Wheezing, Other Cardiovascular: No Chest Pain, No Palpitations, No Orthopnea, No Paroxysmal Noc. Dyspnea, No Edema, No Lt Headedness, No Other Gastrointestinal: No Nausea, No Vomiting, No Abdominal Pain, No Diarrhea, No Constipation, No Melena, No Hematochezia, No Other Genitourinary: No Dysuria, No Frequency, No Incontinence, No Hematuria, No Retention, No Discharge, No Urgency, No Pain, No Flank Pain, No Other, No , No , No , No , No , No , No Musculoskeletal: Yes Joint Stiffness Neurological: Yes Numbness/Tingling (chronic neuropathy); No Behavorial Changes, No Bowel/Bladder ControlChng, No Confusion, No Dizziness, No Gait Disturbance, No Headaches, No Impaired Coord/balance, No Mem ory Loss, No Seizures, No Speech Problems, No Tremors, No Visual Changes, No Weakness, No Other Physical Exam General: Alert, Oriented X3, No acute distress HEENT: Atraumatic, EOMI Lungs: Other (Resp unlabored, symm chest rise) Heart: Regular rate Abdomen: Soft, No tenderness Extremities: No clubbing, No cyanosis, Other Neuro: Normal speech, Strength at 5/5 X4 ext, Other (decreased sensation LE, not unchanged from my prior visits) Psych/Mental Status: Mental status NL, Mood NL MUSCULOSKELETAL: Other (large fluctuant area with erythema upper thoracic area, midline. R 3rd digit swollen, not held in flexed position, no tenderness in flexor region or palm/dorsum of hand. Dime sized area of black eschar at tip of digit without drainage. 3rd digit swollen ) Vitals VITALS Vital Signs Date Time Temp Pulse Resp B/P (MAP) Pulse Ox O2 Delivery O2 Flow Rate FiO2 04/24/19 19:00 98.4 65 18 109/62 (78) 89 Room Air 98.4 Labs Labs Laboratory Tests Test 04/23/19 21:09 04/23/19 23:35 04/24/19 08:07 04/24/19 11:44 Glucose (Fingerstick) 261 mg/dL (70-99) 434 mg/dL (70-99) 267 mg/dL (70-99) White Blood Count 24.1 x10^3/uL (4.0-11.0) Red Blood Count 3.68 x10^6/uL (4.30-5.70) Hemoglobin 10.5 g/dL (13.0-17.5) Hematocrit 32.2 % (39.0-53.0) Mean Corpuscular Volume 87 fL (79-100) Mean Corpuscular Hemoglobin 29 pg (25-35) Mean Corpuscular Hemoglobin Concent 33 g/dL (31-37) Red Cell Distribution Width 14.0 % (11.5-14.5) Platelet Count 333 x10^3/uL (140-400) Neutrophils (%) (Auto) 88 % (31-73) Lymphocytes (%) (Auto) 5 % (24-48) Monocytes (%) (Auto) 7 % (0-9) Eosinophils (%) (Auto) 0 % (0-3) Basophils (%) (Auto) 0 % (0-3) Neutrophils # (Auto) 21.1 x10^3uL (1.8-7.7) Lymphocytes # (Auto) 1.2 x10^3/uL (1.0-4.8) Monocytes # (Auto) 1.6 x10^3/uL (0.0-1.1) Eosinophils # (Auto) 0.0 x10^3/uL (0.0-0.7) Basophils # (Auto) 0.1 x10^3/uL (0.0-0.2) Segmented Neutrophils % 88 % (35-66) Lymphocytes % 10 % (24-48) Monocytes % 2 % (0-10) Platelet Estimate Adequate (ADEQUATE) Erythrocyte Sedimentation Rate 115 (0-15) Sodium Level 125 mmol/L (136-145) Potassium Level 4.8 mmol/L (3.5-5.1) Chloride Level 91 mmol/L (98-107) Carbon Dioxide Level 27 mmol/L (21-32) Anion Gap 7 (6-14) Blood Urea Nitrogen 15 mg/dL (8-26) Creatinine 0.7 mg/dL (0.7-1.3) Estimated GFR (Cockcroft-Gault) 118.9 BUN/Creatinine Ratio 21 (6-20) Glucose Level 308 mg/dL (70-99) Calcium Level 8.9 mg/dL (8.5-10.1) Total Bilirubin 0.5 mg/dL (0.2-1.0) Aspartate Amino Transf (AST/SGOT) 17 U/L (15-37) Alanine Aminotransferase (ALT/SGPT) 16 U/L (16-63) Alkaline Phosphatase 184 U/L (46-116) Total Protein 6.6 g/dL (6.4-8.2) Albumin 1.6 g/dL (3.4-5.0) Albumin/Globulin Ratio 0.3 (1.0-1.7) Test 04/24/19 17:36 04/24/19 20:56 Glucose (Fingerstick) 119 mg/dL (70-99) 221 mg/dL (70-99) Laboratory Tests Test 04/23/19 23:35 04/24/19 08:07 04/24/19 11:44 04/24/19 17:36 White Blood Count 24.1 x10^3/uL (4.0-11.0) Red Blood Count 3.68 x10^6/uL (4.30-5.70) Hemoglobin 10.5 g/dL (13.0-17.5) Hematocrit 32.2 % (39.0-53.0) Mean Corpuscular Volume 87 fL (79-100) Mean Corpuscular Hemoglobin 29 pg (25-35) Mean Corpuscular Hemoglobin Concent 33 g/dL (31-37) Red Cell Distribution Width 14.0 % (11.5-14.5) Platelet Count 333 x10^3/uL (140-400) Neutrophils (%) (Auto) 88 % (31-73) Lymphocytes (%) (Auto) 5 % (24-48) Monocytes (%) (Auto) 7 % (0-9) Eosinophils (%) (Auto) 0 % (0-3) Basophils (%) (Auto) 0 % (0-3) Neutrophils # (Auto) 21.1 x10^3uL (1.8-7.7) Lymphocytes # (Auto) 1.2 x10^3/uL (1.0-4.8) Monocytes # (Auto) 1.6 x10^3/uL (0.0-1.1) Eosinophils # (Auto) 0.0 x10^3/uL (0.0-0.7) Basophils # (Auto) 0.1 x10^3/uL (0.0-0.2) Segmented Neutrophils % 88 % (35-66) Lymphocytes % 10 % (24-48) Monocytes % 2 % (0-10) Platelet Estimate Adequate (ADEQUATE) Erythrocyte Sedimentation Rate 115 (0-15) Sodium Level 125 mmol/L (136-145) Potassium Level 4.8 mmol/L (3.5-5.1) Chloride Level 91 mmol/L (98-107) Carbon Dioxide Level 27 mmol/L (21-32) Anion Gap 7 (6-14) Blood Urea Nitrogen 15 mg/dL (8-26) Creatinine 0.7 mg/dL (0.7-1.3) Estimated GFR (Cockcroft-Gault) 118.9 BUN/Creatinine Ratio 21 (6-20) Glucose Level 308 mg/dL (70-99) Calcium Level 8.9 mg/dL (8.5-10.1) Total Bilirubin 0.5 mg/dL (0.2-1.0) Aspartate Amino Transf (AST/SGOT) 17 U/L (15-37) Alanine Aminotransferase (ALT/SGPT) 16 U/L (16-63) Alkaline Phosphatase 184 U/L (46-116) Total Protein 6.6 g/dL (6.4-8.2) Albumin 1.6 g/dL (3.4-5.0) Albumin/Globulin Ratio 0.3 (1.0-1.7) Glucose (Fingerstick) 434 mg/dL (70-99) 267 mg/dL (70-99) 119 mg/dL (70-99) Test 04/24/19 20:56 Glucose (Fingerstick) 221 mg/dL (70-99) Assessment/Plan Assessment/Plan cellulitis R 3rd digit, not likely septic flexor tenosynovitis I and D with GSurg in am, will I and D finger at that time as well BRYAN CHEEMA II, MD Apr 24, 2019 21:20
[2019-04-24 22:38] VITALS: BP 136/72
[2019-04-25] VITALS (7 sets, daily range): BP systolic 105–140; BP diastolic 48–77
[2019-04-25] MEDS: VANCOMYCIN 1 GM in IV NORMAL SALINE 250ML 250 ML IV SCH ×2 (03:12→12:21)
[2019-04-25 05:24] LABS: BASO # 0.1 x10^3/uL (0.0-0.2); BASO % 0 % (0-3); EOS # 0.1 x10^3/uL (0.0-0.7); EOS % 1 % (0-3); HEMATOCRIT 29.3 % (39.0-53.0); HEMOGLOBIN 9.9 g/dL (13.0-17.5); LYMPH # 1.3 x10^3/uL (1.0-4.8); LYMPH % 7 % (24-48); MEAN CORPUSCULAR HEMOGLOBIN 30 pg (25-35); MEAN CORPUSCULAR HGB CONC 34 g/dL (31-37); MEAN CORPUSCULAR VOLUME 88 fL (79-100); MONO # 1.4 x10^3/uL (0.0-1.1); MONO % 8 % (0-9); NEUT # 14.4 x10^3uL (1.8-7.7); NEUT % 84 % (31-73); PLATELET COUNT 331 x10^3/uL (140-400); RED BLOOD COUNT 3.33 x10^6/uL (4.30-5.70); RED CELL DISTRIBUTION WIDTH 13.7 % (11.5-14.5); WHITE BLOOD COUNT 17.2 x10^3/uL (4.0-11.0)
[2019-04-25] MEDS: PIPERACILLIN/TAZOBACTAM 3.375 GM in IV NORMAL SALINE 50ML 50 ML IV SCH ×3 (05:53→22:22)
[2019-04-25] MEDS ORDERED: LIDOCAINE 1% PF 30 ML VIAL. ONE (06:11)
[2019-04-25] MEDS ORDERED: BUPIVACAINE MPF 0.5% 30 ML VIAL. ONE (06:11)
[2019-04-25 06:25] LABS: CALCIUM 8.6 mg/dL (8.5-10.1); CREATININE 0.7 mg/dL (0.7-1.3); GFR 118.9; POTASSIUM 4.5 mmol/L (3.5-5.1)
[2019-04-25] MEDS ORDERED: LIDOCAINE 2% PF 5 ML VIAL. ONE (07:01)
[2019-04-25] MEDS ORDERED: ONDANSETRON PF 4 MG/2 ML VIAL. ONE (07:01)
[2019-04-25] MEDS ORDERED: DEXAMETHASONE SOD PHOS 4 MG/ML VIAL ONE (07:01)
[2019-04-25] MEDS ORDERED: PROPOFOL 20 ML IV ONE (07:01)
[2019-04-25] MEDS: INSULIN LISPRO 300 UNITS/3 ML INSULN.PEN. SQ SCH ×3 (07:42→17:41)
[2019-04-25] MEDS ORDERED: IV RINGERS,LACTATED 1000ML 1,000 ML IV SCH (07:51)
[2019-04-25] MEDS ORDERED: ONDANSETRON PF 4 MG/2 ML VIAL. IV PRN (08:00)
[2019-04-25] MEDS ORDERED: MORPHINE SULFATE 2 MG/ML VIAL. IV PRN (08:00)
[2019-04-25] MEDS ORDERED: fentaNYL PF VIAL 100 MCG/2 ML VIAL IV PRN ×2 (08:00)
[2019-04-25] MEDS ORDERED: PROCHLORPERAZINE 10 MG/2 ML VIAL. IV PRN (08:00)
[2019-04-25] MEDS: CENEGERMIN BKBJ OS SCH ×7 (08:00→21:50)
[2019-04-25] MEDS ORDERED: HYDROmorphone 2 MG/ML VIAL IV PRN (08:00)
[2019-04-25] MEDS ORDERED: SEVOFLURANE 61 TO 120 MINUTES. IH ONE (08:10)
[2019-04-25] MEDS ORDERED: MORPHINE SULFATE 10 MG/ML VIAL. ONE (08:16)
--- NOTE | 2019-04-25 08:24 | PDOC4 ---
Operative Note Operative Note Date: 04/25/2019 Preoperative diagnosis: Upper back abscess Postoperative diagnosis: Same Procedure: Incision and drainage of abscess Surgeon: Rajiv Specimen: Cultures Dictation: Patient is a 53-year-old male admitted the hospital with cellulitis and upper back abscess as well as hand abscess. The procedure of incision and drainage of the upper back abscess was explained to the patient in detail risk benefits were also discussed including bleeding infection alternatives to this procedure also discussed with the patient is seemed to understand gave both verbal and written consent to have the procedure performed. Patient was taken to the operating room placed in supine position general anesthesia was initiated once patient was sleep and intubated is placed in the left lateral lateral decubitus position. The upper back was prepped and draped usual sterile fashion is Betadine scrub and solution. The center point of the abscess was appreciated an incision was made with a 10 blade scalpel into the abscess cavity copious amounts of purulent material were expressed this was cultured. The wound was section of all its purulent material and then irrigated with saline loculations were broken up with finger dissection exposing several more areas of loculated fluid collection. Copious amounts of normal saline were used to irrigate the wound. Once it appeared that all the purulent material been suppressed and the wound copiously irrigated was then packed with half-inch iodoform Nu Gauze 4 x 4's and ABDs were used as a dressing. Patient was repositioned for Dr. Taylor's procedure to be performed on his hand. Estimated blood loss from I&D of back abscess approximately 5 mL MALLIKA SUÁREZ MD Apr 25, 2019 08:24
[2019-04-25] MEDS: LACTOBACILLUS RHAMNOSUS GG 1 CAPSULE. PO SCH ×2 (09:00→21:49)
--- NOTE | 2019-04-25 09:31 | PDOC4 ---
Operative Note Operative Note Date of procedure: 04/25/2019 Surgeon: Truong Cheema Asst.: None Preoperative diagnosis: Right third digit finger necrosis and infection Postoperative diagnosis: Same Procedure performed: Right third digit partial fingertip amputation Irrigation and debridement flexor tendon sheath right third digit Tourniquet time: 30 minutes Blood loss: 10 mL Findings: Patient had friable necrotic bone, his entire distal phalanx underneath necrotic tissue at the tip of his finger. He had a wound down to flexor tendon sheath on the volar and ulnar aspect of the distal portion of his finger with purulence present here. Specimens: Cultures were obtained. Competitions: None Reason for procedure: Patient is very pleasant 53-year-old gentleman who I have operated on multiple times for diabetic complications. Please see my consult no te for further details of this hospitalization. We have discussed proceeding with I&D of his finger, immediately following the idea of his back abscess by Dr. Vance. Description of procedure: Agree the patient the preoperative holding area and marked the correct digit. He was taken back to the operative suite, maintaining on his scheduled antibiotics. Dr. Vance performed his portion of the procedure first, please see details in his operative note regarding this portion of the procedure. After he had finished, I entered the room, the patient was under anesthesia, we applied a nonsterile tourniquet to his right upper extremity and taped in place. Right upper chin was prepped and draped in our usual sterile fashion. [place] was used to exsanguinate and tourniquet was insufflated to 250 mmHg. I then washed his finger for appropriate visualization. I inspected the wound at the palmar and ulnar aspect over his distal phalanx region, I used a Rominger and scalpel to debride necrotic tissue. I encountered the flexor tendon sheath and opened this. At this point this allowed some expression of purulent material and he elected to proceed with irrigation of his flexor tendon sheath and therefore I made a transverse incision just proximal to his third metacarpal head and dissected down tight count of the flexor tendon sheath. I used a mosquito underneath the A1 ena and entered the flexor tendon sheath. I then used a pediatric feeding tube and fed it from distal to proximal then irrigated his flexor tendon sheath out with a proximal me 4-500 mL of sterile saline in this fashion, I was able to visualize fluid extravasation from the palmar incisi on and from the finger tip wound. I then repeated this after shuttling the feeding tube from proximal to distal. After this, I directed my attention to his fingertip and remove the overlying skin as well as the necrotic nail bed. Part of his distal phalanx extruded while debriding his fingertip. The bone was very friable, his whole distal phalanx, and it was fragmented. I removed the rest of his distal phalanx and the necrotic tissue around his fingertip. I used commissural sharp excisional debridement and the Rominger. I then closed his palmar incision with 3-0 nylon in a mattress fashion. I reapproximated skin edges with 3-0 nylon in simple interrupted fashion at his volar distal fingertip incision where I performed my flexor tendon sheath irrigation and debridement. I then reapproximated skin edges at the tip of his finger with simple interrupted 3-0 nylon as well. Tourniquet was let down. Hemostasis was achieved with throughout this case with bipolar cautery. Sterile bulky soft dressing was applied. Patient was awakened from anesthesia and transferred gently supine to the recovery room cart and taken to PACU stable and x-ray condition. Postoperative plan is to readmitted to the floor. Antibiotic spur infectious disease. I will follow along and monitor his clinical course. He may need further surgical intervention performed irrigation and debridement versus partial versus full ray amputation. TRUONG CHEEMA II, MD Apr 25, 2019 09:31
[2019-04-25] MEDS ORDERED: INSULIN LISPRO 100 UNIT/ML 3ML VIAL. SQ ONE (09:45)
--- NOTE | 2019-04-25 10:19 | NUR ---
Pictures for patient's back and left finger not done due to patient having I&D on both this AM. Dressing are clean dry and intact. Will continue to monitor.
--- NOTE | 2019-04-25 11:44 | CONS ---
DATE OF CONSULTATION: 04/24/2019 REQUESTING PHYSICIAN: Dr. Manriquez REASON FOR CONSULTATION: Back abscess. 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 About 2 weeks ago he noticed some small bumps on right upper back area. He says they itch and he would scratch and pick at them. The area became increasingly red, painful and swollen. Over the last day or so, the area started to drain. He was found to have a BREANNE BRUNSON MD DR: FRANKIE/denise JOB#: [id number] / [id number]
[2019-04-25] MEDS: VANCOMYCIN PER PHARMACY MC PRN (13:17)
--- NOTE | 2019-04-25 13:25 | PDOC ---
Infectious Disease Note Subjective Subjective s/p surgery Pain controlled at the moment Denies N/V/SOA ROS ROS per HPI Vital Sign Vital Signs Vital Signs Date Time Temp Pulse Resp B/P (MAP) Pulse Ox O2 Delivery O2 Flow Rate FiO2 04/25/19 11:30 98.1 96 12 108/61 (77) 93 Room Air 98.1 04/25/19 09:23 8 Physical Exam PHYSICAL EXAM GENERAL: Resting quietly, arouses to name HEMT: Oral cavity clear LUNGS: Clear CV: S1 S2 ABD: Soft and nontender EXT: No gross edema or cyanosis, Left BKA. 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 Labs Lab Laboratory Tests Test 04/24/19 17:36 04/24/19 20:56 04/25/19 04:40 04/25/19 07:36 Glucose (Fingerstick) 119 mg/dL (70-99) 221 mg/dL (70-99) 334 mg/dL (70-99) White Blood Count 17.2 x10^3/uL (4.0-11.0) Red Blood Count 3.33 x10^6/uL (4.30-5.70) Hemoglobin 9.9 g/dL (13.0-17.5) Hematocrit 29.3 % (39.0-53.0) Mean Corpuscular Volume 88 fL (79-100) Mean Corpuscular Hemoglobin 30 pg (25-35) Mean Corpuscular Hemoglobin Concent 34 g/dL (31-37) Red Cell Distribution Width 13.7 % (11.5-14.5) Platelet Count 331 x10^3/uL (140-400) Neutrophils (%) (Auto) 84 % (31-73) Lymphocytes (%) (Auto) 7 % (24-48) Monocytes (%) (Auto) 8 % (0-9) Eosinophils (%) (Auto) 1 % (0-3) Basophils (%) (Auto) 0 % (0-3) Neutrophils # (Auto) 14.4 x10^3uL (1.8-7.7) Lymphocytes # (Auto) 1.3 x10^3/uL (1.0-4.8) Monocytes # (Auto) 1.4 x10^3/uL (0.0-1.1) Eosinophils # (Auto) 0.1 x10^3/uL (0.0-0.7) Basophils # (Auto) 0.1 x10^3/uL (0.0-0.2) Sodium Level 129 mmol/L (136-145) Potassium Level 4.5 mmol/L (3.5-5.1) Chloride Level 96 mmol/L (98-107) Carbon Dioxide Level 26 mmol/L (21-32) Anion Gap 7 (6-14) Blood Urea Nitrogen 15 mg/dL (8-26) Creatinine 0.7 mg/dL (0.7-1.3) Estimated GFR (Cockcroft-Gault) 118.9 Glucose Level 309 mg/dL (70-99) Calcium Level 8.6 mg/dL (8.5-10.1) Procalcitonin 0.58 ng/mL (0.00-0.10) Test 04/25/19 09:28 04/25/19 12:05 Glucose (Fingerstick) 231 mg/dL (70-99) 132 mg/dL (70-99) Objective Assessment Large abscess, right upper back s/p I and D w debridement, 04/25. Intra-op cultures pending Right third finger burn after soldering 2 weeks ago s/p I & D flexor tendon sheath and partial fingertip amputation for friable necrotic bone & infection, 04/25. Intra-op cultures pending Leukocytosis Diabetes with peripheral neuropathy Allergy to Bactrim h/o MRSA, klebsiella, E. faecalis (S-PCN), Citrobacter, group B strep Plan Plan of Care vanc and Zosyn Probiotics pre-op dexamethasone, 04/25 f/u cultures Monitor WBC/temp and renal function closely Glycemic control Attending Co-Sign Attending Co-Sign The patient was seen and interviewed as well as examined at the bedside. The chart was reviewed. The case was discussed. Agree with the plan of care. MAGGI NEWMAN APRN Apr 25, 2019 13:24 BREANNE BRUNSON MD Apr 25, 2019 15:29
--- NOTE | 2019-04-25 13:47 | NUR ---
Vanco trough ordered incorrectly. Lab was drawn as patient was getting Vanco infusion. Trough level was critical high due to medicine being infused at the time. Spoke to Pharmacy regarding trough. Redraw rescheduled.
[2019-04-25] MEDS: oxyCODONE IR 5 MG TABLET PO PRN (16:37)
--- NOTE | 2019-04-25 20:29 | PN ---
DATE: 04/25/2019 LOCATION: He is in room 530. SUBJECTIVE: The patient has just returned from surgery, is currently somewhat sleepy and groggy. Denies any major complaints. OBJECTIVE: VITAL SIGNS: Stable. He is afebrile. CHEST: Clear. HEART: Regular. ABDOMEN: Benign. He has just finished a surgery for I and D of an abscess on his upper back by General Surgery as well as debridement and partial amputation of fingertip for infection on his right third finger by Ortho. LABORATORY DATA: Sodium is up to 129 this morning on labs. Sugars have continued to run somewhat high and hopefully will start improving with drainage of the infection. White count has decreased from 24,000 on admission to 17,000 this morning. IMPRESSION: 1. Abscess, right upper back. 2. Right third finger infection. 3. Diabetes. 4. Leukocytosis, improving. 5. Hyponatremia, improving. 6. Severe protein-calorie malnutrition. PLAN: Continue present antibiotics. Await cultures. ID help is appreciated. We will adjust insulin over the next 24-48 hours if sugars do not improve with drainage of the infection. PAT MOSHER MD DR: MEHRAN/denise JOB#: [id number] / [id number]
[2019-04-25] MEDS: INSULIN GLARGINE 300 UNITS/3 ML INSULN.PEN. SQ SCH (21:56)
[2019-04-26] MEDS: VANCOMYCIN 1 GM in IV NORMAL SALINE 250ML 250 ML IV SCH ×3 (02:22→22:05)
[2019-04-26 03:00] VITALS: BP 111/64
[2019-04-26] MEDS: PIPERACILLIN/TAZOBACTAM 3.375 GM in IV NORMAL SALINE 50ML 50 ML IV SCH ×3 (06:12→21:08)
[2019-04-26 07:00] VITALS: BP 123/63
[2019-04-26] MEDS: CENEGERMIN BKBJ OS SCH ×4 (08:00→21:07)
[2019-04-26 08:07] LABS: CREATININE 0.7 mg/dL (0.7-1.3); GFR 118.9
[2019-04-26] MEDS: LACTOBACILLUS RHAMNOSUS GG 1 CAPSULE. PO SCH ×2 (08:33→21:08)
[2019-04-26] MEDS: INSULIN LISPRO 300 UNITS/3 ML INSULN.PEN. SQ SCH ×3 (08:36→18:16)
--- NOTE | 2019-04-26 09:21 | CONS ---
DATE OF CONSULTATION: 04/24/2019 REQUESTING PHYSICIAN: Dr. Lima. REASON FOR CONSULTATION: Back abscess. 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 About 2 weeks ago he noticed some small bumps on right upper back area. He says they itch and he would scratch and pick at them. The area became increasingly red, painful and swollen. Over the last day or so, the area started to drain. He was found to have a large abscess and has since been admitted for treatment. He was seen by Dr. Vance and is scheduled to have I and D with debridement tomorrow. In addition, the patient says about 2 weeks ago he was soldering and unbeknownst to him he burnt his right third finger, which has since become swollen. He is currently on vancomycin and Zosyn. The patient says he is not feeling too well. His energy level is low. He denies fevers, chills or body aches. He has loss of sensation in lower extremities and hands. 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 He has a history of soft tissue skin infections with MRSA, citrobacter, klebsiella, group B strep, had Enterococcus faecalis, penicillin sensitive. PAST MEDICAL HISTORY: Diabetes mellitus, peripheral neuropathy, peripheral vascular disease, hyperlipidemia, hypertension, arthritis, ADD, depression/anxiety, history of Clostridium difficile, coronary artery disease, chronic lumbar radiculopathy. PAST SURGICAL HISTORY: Right first and second toe amputation, left BKA. SOCIAL HISTORY: The patient lives at home. He is a current smoker. FAMILY HISTORY: Noncontributory. ALLERGIES: BACTRIM. MEDICATIONS: Vancomycin and Zosyn. REVIEW OF SYSTEMS: Per HPI, otherwise all other review of systems is negative. PHYSICAL EXAMINATION: VITAL SIGNS: Temperature is 99.5, blood pressure 101/51, heart rate 115, respiratory rate 18, pulse oximetry is 100% on room air. BMI 20.5. GENERAL: The patient is alert and transferring to a chair. HEENT: Right eye cataract. Oral cavity pink and moist. In dentures. NECK: Supple. LUNGS: Clear to auscultation. HEART: S1 and S2. ABDOMEN: Nondistended, soft, nontender with bowel sounds present. EXTREMITIES: No gross edema or cyanosis. Left BKA unremarkable. SKIN: Warm without generalized rash. He has a large abscess right upper back with purulent drainage. NEUROLOGIC: Alert and oriented x 3. LABORATORY DATA: On admission, WBC 24.1, hemoglobin 10.5, platelets 333,000, sed rate 115. Sodium 125, potassium 4.8, creatinine 0.7, BUN 15, glucose 308, total bilirubin 0.5, AST 17, ALT 16, albumin 1.6. Anaerobic/aerobic culture with Gram stain pending. Procalcitonin pending. IMPRESSION: 1. Large abscess, right upper back. 2. Right third finger burn after soldering 2 weeks ago. 3. Leukocytosis. 4. Diabetes with peripheral neuropathy. 5. ALLERGY TO BACTRIM. 6. History of methicillin-resistant Staphylococcus aureus, klebsiella, Enterococcus faecalis, citrobacter and group B strep infections. PLAN: Continue vancomycin and Zosyn. Antibiotic modification pending culture results and clinical response. He is scheduled to have an irrigation and drainage with debridement tomorrow. Ortho surgeon has been consulted to evaluate the right finger. Continue local wound care and glycemic control. Continue to monitor laboratory values and renal function closely. Thank you, Dr. Lima, for asking us to participate in this patient's care. Should you have further questions or concerns, please call. The patient seen and examined and plan of care implemented by Dr. Barrera Peres. BARRERA PERES MD DR: FRANKIE/denise JOB#: [id number] / [id number]
--- NOTE | 2019-04-26 09:21 | NUR ---
IP: Pt has a hx of mrsa of foot and toe wounds in 2018. Pt adm with abscess of back. Pt to be in contact precautions pending culture results and mrsa screen.
--- NOTE | 2019-04-26 09:29 | PDOC ---
MORRIS OSORIO STRATEGIC MARKETING LEADER 04/26/19 0929: SURGICAL PROGRESS NOTE Subjective pain to wound some drainage Vital Signs Vital Signs Date Time Temp Pulse Resp B/P (MAP) Pulse Ox O2 Delivery O2 Flow Rate FiO2 04/26/19 07:00 98.6 102 23 123/63 (83) 97 Room Air 98.6 04/25/19 09:23 8 I&O Intake and Output 04/26/19 07:00 Intake Total 540 ml Output Total 280 ml Balance 260 ml Intake Oral 240 ml IV Total 300 ml Output Urine Total 275 ml Estimated Blood Loss 5 ml General: Alert, Oriented X3, Cooperative, No acute distress Skin: Other (back wound with purulent drainage, packing in place) Labs Laboratory Tests Test 04/24/19 11:44 04/24/19 17:36 04/24/19 20:56 04/25/19 04:40 Glucose (Fingerstick) 267 mg/dL (70-99) 119 mg/dL (70-99) 221 mg/dL (70-99) White Blood Count 17.2 x10^3/uL (4.0-11.0) Red Blood Count 3.33 x10^6/uL (4.30-5.70) Hemoglobin 9.9 g/dL (13.0-17.5) Hematocrit 29.3 % (39.0-53.0) Mean Corpuscular Volume 88 fL (79-100) Mean Corpuscular Hemoglobin 30 pg (25-35) Mean Corpuscular Hemoglobin Concent 34 g/dL (31-37) Red Cell Distribution Width 13.7 % (11.5-14.5) Platelet Count 331 x10^3/uL (140-400) Neutrophils (%) (Auto) 84 % (31-73) Lymphocytes (%) (Auto) 7 % (24-48) Monocytes (%) (Auto) 8 % (0-9) Eosinophils (%) (Auto) 1 % (0-3) Basophils (%) (Auto) 0 % (0-3) Neutrophils # (Auto) 14.4 x10^3uL (1.8-7.7) Lymphocytes # (Auto) 1.3 x10^3/uL (1.0-4.8) Monocytes # (Auto) 1.4 x10^3/uL (0.0-1.1) Eosinophils # (Auto) 0.1 x10^3/uL (0.0-0.7) Basophils # (Auto) 0.1 x10^3/uL (0.0-0.2) Sodium Level 129 mmol/L (136-145) Potassium Level 4.5 mmol/L (3.5-5.1) Chloride Level 96 mmol/L (98-107) Carbon Dioxide Level 26 mmol/L (21-32) Anion Gap 7 (6-14) Blood Urea Nitrogen 15 mg/dL (8-26) Creatinine 0.7 mg/dL (0.7-1.3) Estimated GFR (Cockcroft-Gault) 118.9 Glucose Level 309 mg/dL (70-99) Calcium Level 8.6 mg/dL (8.5-10.1) Procalcitonin 0.58 ng/mL (0.00-0.10) Test 04/25/19 07:36 04/25/19 09:28 04/25/19 12:05 04/25/19 13:00 Glucose (Fingerstick) 334 mg/dL (70-99) 231 mg/dL (70-99) 132 mg/dL (70-99) Vancomycin Level Trough 34.0 mcg/mL (10.0-20.0) Vancomycin Last Dose Date Unknown Vancomycin Last Dose Time [place] Test 04/25/19 17:10 04/25/19 20:38 04/26/19 07:07 04/26/19 07:33 Glucose (Fingerstick) 232 mg/dL (70-99) 186 mg/dL (70-99) 279 mg/dL (70-99) Creatinine 0.7 mg/dL (0.7-1.3) Estimated GFR (Cockcroft-Gault) 118.9 Laboratory Tests Test 04/25/19 12:05 04/25/19 13:00 04/25/19 17:10 04/25/19 20:38 Glucose (Fingerstick) 132 mg/dL (70-99) 232 mg/dL (70-99) 186 mg/dL (70-99) Vancomycin Level Trough 34.0 mcg/mL (10.0-20.0) Vancomycin Last Dose Date Unknown Vancomycin Last Dose Time [place] Test 04/26/19 07:07 04/26/19 07:33 Creatinine 0.7 mg/dL (0.7-1.3) Estimated GFR (Cockcroft-Gault) 118.9 Glucose (Fingerstick) 279 mg/dL (70-99) Assessment/Plan s/p I&D will ask wound care to see for post op dressings continue abx MALLIKA SUÁREZ MD 04/26/19 1021: SURGICAL PROGRESS NOTE Assessment/Plan Agree with Tequila's assessment and plan MORRIS OSORIO APRN Apr 26, 2019 09:29 MALLIKA SUÁREZ MD Apr 26, 2019 10:21
--- NOTE | 2019-04-26 09:40 | PDOC ---
ORTHO PROGRESS NOTES Subjective No new complaints. He feels like his pain is getting better. Vitals Vital Signs Date Time Temp Pulse Resp B/P (MAP) Pulse Ox O2 Delivery O2 Flow Rate FiO2 04/26/19 07:00 98.6 102 23 123/63 (83) 97 Room Air 98.6 04/25/19 09:23 8 Labs Laboratory Tests Test 04/24/19 11:44 04/24/19 17:36 04/24/19 20:56 04/25/19 04:40 Glucose (Fingerstick) 267 mg/dL (70-99) 119 mg/dL (70-99) 221 mg/dL (70-99) White Blood Count 17.2 x10^3/uL (4.0-11.0) Red Blood Count 3.33 x10^6/uL (4.30-5.70) Hemoglobin 9.9 g/dL (13.0-17.5) Hematocrit 29.3 % (39.0-53.0) Mean Corpuscular Volume 88 fL (79-100) Mean Corpuscular Hemoglobin 30 pg (25-35) Mean Corpuscular Hemoglobin Concent 34 g/dL (31-37) Red Cell Distribution Width 13.7 % (11.5-14.5) Platelet Count 331 x10^3/uL (140-400) Neutrophils (%) (Auto) 84 % (31-73) Lymphocytes (%) (Auto) 7 % (24-48) Monocytes (%) (Auto) 8 % (0-9) Eosinophils (%) (Auto) 1 % (0-3) Basophils (%) (Auto) 0 % (0-3) Neutrophils # (Auto) 14.4 x10^3uL (1.8-7.7) Lymphocytes # (Auto) 1.3 x10^3/uL (1.0-4.8) Monocytes # (Auto) 1.4 x10^3/uL (0.0-1.1) Eosinophils # (Auto) 0.1 x10^3/uL (0.0-0.7) Basophils # (Auto) 0.1 x10^3/uL (0.0-0.2) Sodium Level 129 mmol/L (136-145) Potassium Level 4.5 mmol/L (3.5-5.1) Chloride Level 96 mmol/L (98-107) Carbon Dioxide Level 26 mmol/L (21-32) Anion Gap 7 (6-14) Blood Urea Nitrogen 15 mg/dL (8-26) Creatinine 0.7 mg/dL (0.7-1.3) Estimated GFR (Cockcroft-Gault) 118.9 Glucose Level 309 mg/dL (70-99) Calcium Level 8.6 mg/dL (8.5-10.1) Procalcitonin 0.58 ng/mL (0.00-0.10) Test 04/25/19 07:36 04/25/19 09:28 04/25/19 12:05 04/25/19 13:00 Glucose (Fingerstick) 334 mg/dL (70-99) 231 mg/dL (70-99) 132 mg/dL (70-99) Vancomycin Level Trough 34.0 mcg/mL (10.0-20.0) Vancomycin Last Dose Date Unknown Vancomycin Last Dose Time [place] Test 04/25/19 17:10 04/25/19 20:38 04/26/19 07:07 04/26/19 07:33 Glucose (Fingerstick) 232 mg/dL (70-99) 186 mg/dL (70-99) 279 mg/dL (70-99) Creatinine 0.7 mg/dL (0.7-1.3) Estimated GFR (Cockcroft-Gault) 118.9 Laboratory Tests Test 04/25/19 12:05 04/25/19 13:00 04/25/19 17:10 04/25/19 20:38 Glucose (Fingerstick) 132 mg/dL (70-99) 232 mg/dL (70-99) 186 mg/dL (70-99) Vancomycin Level Trough 34.0 mcg/mL (10.0-20.0) Vancomycin Last Dose Date Unknown Vancomycin Last Dose Time [place] Test 04/26/19 07:07 04/26/19 07:33 Creatinine 0.7 mg/dL (0.7-1.3) Estimated GFR (Cockcroft-Gault) 118.9 Glucose (Fingerstick) 279 mg/dL (70-99) Notes He is resting, he easily awakens. His dressing was taken off. I inspected his finger. Not much change, maybe a little bit less edema around his finger circumferentially. The volar flap as a dark dusky appearance. There is no obvious purulent drainage. Assessment and Plan I did discuss his case with Dr. Cramer who will take over and assume care, as I unavailable for this week. He does need additional surgery on that hand, possibly complete ray amputation. BRYAN CHEEMA II, MD Apr 26, 2019 09:40
--- NOTE | 2019-04-26 10:21 | PDOC ---
Infectious Disease Note Subjective Subjective Not hungry Pain controlled at the moment Denies N/V/SOA ROS ROS o/w neg Vital Sign Vital Signs Vital Signs Date Time Temp Pulse Resp B/P (MAP) Pulse Ox O2 Delivery O2 Flow Rate FiO2 04/26/19 08:00 Room Air 04/26/19 07:00 98.6 102 23 123/63 (83) 97 98.6 04/25/19 09:23 8 Physical Exam PHYSICAL EXAM GENERAL: Resting quietly, Alert and NAD HEMT: Oral cavity clear LUNGS: Clear CV: S1 S2 ABD: Soft and nontender EXT: No gross edema or cyanosis, Left BKA. Finger is clean SKIN: Post-op dressing upper - wound is packed. Still some erythema but no odor LEATHER STAKER: Responding appropriately Labs Lab Laboratory Tests Test 04/25/19 12:05 04/25/19 13:00 04/25/19 17:10 04/25/19 20:38 Glucose (Fingerstick) 132 mg/dL (70-99) 232 mg/dL (70-99) 186 mg/dL (70-99) Vancomycin Level Trough 34.0 mcg/mL (10.0-20.0) Vancomycin Last Dose Date Unknown Vancomycin Last Dose Time [place] Test 04/26/19 07:07 04/26/19 07:33 Creatinine 0.7 mg/dL (0.7-1.3) Estimated GFR (Cockcroft-Gault) 118.9 Glucose (Fingerstick) 279 mg/dL (70-99) Objective Assessment Large abscess, right upper back s/p I and D w debridement, 04/25. Intra-op cultures pending Right third finger burn after soldering 2 weeks ago s/p I & D flexor tendon sheath and partial fingertip amputation for friable necrotic bone & infection, 04/25. Intra-op cultures pending Leukocytosis Diabetes with peripheral neuropathy Allergy to Bactrim h/o MRSA, klebsiella, E. faecalis (S-PCN), Citrobacter, group B strep Plan Plan of Care vanc and Zosyn Probiotics pre-op dexamethasone, 04/25 f/u cultures 04/23 Monitor WBC/temp and renal function closely Glycemic control Wound care consulted D/w nursing BREANNE BRUNSON MD Apr 26, 2019 10:21
[2019-04-26 11:00] VITALS: BP 107/48
[2019-04-26 13:51] LABS: VANC TR 8.8 mcg/mL (10.0-20.0)
--- NOTE | 2019-04-26 14:12 | NUR ---
Pharmacy Vancomycin Dosing Note S:Consulted to monitor and dose vancomycin started 04/24/19. O:CRIS DONOHUE is a 53 year old M with Abscess ON RT UPPER BACK . Height: 5 feet, 10 inches Weight: 71.297977 kg [place] Body Weight: 73.00 Adjusted Body Weight: 72.20 Dosing Weight: Actual Other Antibiotics: ZOSYN 3.375GM IV Q8H LABS: Last BUN: 15 Last Creatinine: 0.7 Creatinine Clearance: >100 mL/min Last WBC: 17.2 Last Procalcitonin: 0.58 Tmax (past 24 hours): 99.5 Microbiology: - I/O: 1010/- Drug Levels: Last level: on at Last dose given 04/25/19 at 1221 Vancomycin Dosing: Loading Dose: 1750 mg x1 Dosing Weight: Actual Target Trough: 10-20 A: Based on: LOW TROUGH, STABLE RENAL FXN, P: 1. Continue Vancomycin 1000 mg IV q12h 2. Follow up Trough level as needed. 3. Pharmacy will continue to monitor, follow and adjust therapy as needed. CON[facility] BO [facility], 04/26/19 2118
[2019-04-26 15:00] VITALS: BP 140/77
--- NOTE | 2019-04-26 15:45 | NUR ---
Wound Care: Patient seen per wound care consult. See wound assessment. Patient is well known to us in the wound clinic and from previous admissions. Patient has large abscess to upper back, I & D over the weekend, wound cleansed, assessed, measured, and pictured. Recommendations for wound vac if okay with surgery. Meanwhile packed with Dakins soaked gauze and covered with gauze pads and tape. Patient has left index finger wound and right middle finger wound due to burn per patient. Both wounds were open to air upon assessment. Patient under went I & D of right middle finger as well, surgery again scheduled for amputation of that right middle finger for 04/27/19. The right middle finger redressed with Iodoflex and covered with gauze and kerlix. The left index finger redressed with Xeroform gauze and telfa dressing. Patient has abrasion to right lower leg. Wound cleansed and assessed. Recommendations for Xeroform gauze, gauze, and tape. No other wounds noted. Patient is noncompliant. Patient agreeable to wound vac for upper back abscess. Bed lowered and call light in reach. Will follow up for wound vac placement. Spoke with RN regarding POC.
[2019-04-26] MEDS: oxyCODONE IR 5 MG TABLET PO PRN ×2 (18:13→22:58)
[2019-04-26 19:00] VITALS: BP 137/71
--- NOTE | 2019-04-26 20:39 | PDOC ---
GENERAL General: vss and afebrile. awake and alert. denies significant back or finger pain. chest clear, heart regular, abdomen benign, back bandaged, right third finger appears more swollen today and redness without change. continue antibiotics and await cultures. help of consultants appreciated. sugars are much better after drainage abscess. VITAL SIGNS Vital Signs: Vital Signs Date Time Temp Pulse Resp B/P (MAP) Pulse Ox O2 Delivery O2 Flow Rate FiO2 04/26/19 19:10 18 95 Room Air 04/26/19 19:00 99.0 121 137/71 (93) 99.0 04/25/19 09:23 8 I & O I & O Intake and Output 04/26/19 06:59 Intake Total 540 ml Output Total 280 ml Balance 260 ml Intake Oral 240 ml IV Total 300 ml Output Urine Total 275 ml Estimated Blood Loss 5 ml ALLERGIES Allergies: Allergies Coded Allergies Type Severity Reaction Last Updated Verified sulfamethoxazole Allergy Intermediate Rash 02/13/18 Yes trimethoprim Allergy Intermediate Rash 02/13/18 Yes I S O L A T I O N *CONTACT* Allergy Unknown 04/13/18 Yes MEDS Medications: Current Medications Medications (Trade) Dose Ordered Sig/Tory Start Time Stop Time Status Last Admin Dose Admin Bupivacaine HCl (Sensorcaine Mpf 0.5%) 30 ml STK-MED ONCE 04/25/19 06:11 04/25/19 07:11 DC Dexamethasone Sodium Phosphate (Decadron) 4 mg STK-MED ONCE 04/25/19 07:01 04/25/19 07:02 DC Fentanyl Citrate (Fentanyl 2ml Vial) 50 mcg PRN Q5MIN PRN 04/27/19 07:00 04/27/19 20:00 Hydromorphone HCl (Dilaudid) 0.5 mg PRN Q10MIN PRN 04/27/19 07:00 04/27/19 20:00 Insulin Glargine (Lantus) 50 units QHS 04/24/19 21:00 04/25/19 21:56 50 UNITS Insulin Human Lispro (HumaLOG VIAL) 6 unit ONCE ONCE 04/25/19 09:45 04/25/19 09:46 DC 04/25/19 09:48 6 UNIT Insulin Human Lispro (HumaLOG) 60 units TIDBFRMEAL 04/24/19 07:30 04/26/19 18:16 40 UNITS Lactobacillus Rhamnosus (Culturelle) 1 cap BID 04/24/19 09:00 04/26/19 08:33 1 CAP Lidocaine HCl (Lidocaine Pf 2% Vial) 5 ml STK-MED ONCE 04/25/19 07:01 04/25/19 07:02 DC Lidocaine HCl (Xylocaine 1% Pf 30ml Vial) 30 ml STK-MED ONCE 04/25/19 06:11 04/25/19 07:11 DC Lidocaine HCl (Xylocaine-Mpf 1% 2ml Vial) 2 ml PRN 1X PRN 04/27/19 07:00 04/27/19 20:00 Morphine Sulfate (Morphine Sulfate) 1 mg PRN Q10MIN PRN 04/27/19 07:00 04/27/19 20:00 Non-Formulary Medication (Cenegermin-Bkbj (Oxervate)) 0.05 ml DAILY@1400,1600,2000 04/24/19 14:00 04/25/19 21:50 0.05 ML Ondansetron HCl (Zofran) 4 mg PRN Q6HRS PRN 04/27/19 07:00 04/27/19 20:00 Oxycodone HCl (Roxicodone) 15 mg PRN Q4HRS PRN 04/23/19 22:15 04/26/19 18:13 15 MG Piperacillin Sod/ Tazobactam Sod 3.375 gm/Sodium Chloride 50 ml @ 100 mls/hr ONCE ONCE 04/23/19 23:00 04/23/19 23:29 DC 04/23/19 23:55 100 MLS/HR Prochlorperazine Edisylate (Compazine) 5 mg PACU PRN PRN 04/27/19 07:00 04/27/19 20:00 Propofol 20 ml @ As Directed STK-MED ONCE 04/25/19 07:01 04/25/19 07:02 DC Ringer's Solution 1,000 ml @ 30 mls/hr Q24H 04/27/19 07:00 04/27/19 18:59 Sevoflurane (Ultane) 60 ml STK-MED ONCE 04/25/19 08:10 04/25/19 08:11 DC Vancomycin HCl (Vanco Per Pharmacy) 1 each PRN DAILY PRN 04/23/19 22:30 04/25/19 13:17 1 EACH Vancomycin HCl (Vancomycin Trough Level) 1 each 1X ONCE 04/26/19 13:00 04/26/19 13:01 DC 04/26/19 13:00 1 EACH Vancomycin HCl 1.75 gm/Sodium Chloride 500 ml @ 250 mls/hr 1X ONCE 04/23/19 23:30 04/24/19 01:31 DC 04/24/19 01:24 250 MLS/HR Vancomycin HCl 1 gm/Sodium Chloride 250 ml @ 250 mls/hr Q8H 04/26/19 14:30 04/26/19 14:30 250 MLS/HR LAB Lab: Laboratory Tests Test 04/25/19 20:38 04/26/19 07:07 04/26/19 07:33 04/26/19 12:02 Glucose (Fingerstick) 186 mg/dL (70-99) 279 mg/dL (70-99) 106 mg/dL (70-99) Creatinine 0.7 mg/dL (0.7-1.3) Estimated GFR (Cockcroft-Gault) 118.9 Test 04/26/19 13:25 04/26/19 16:46 Vancomycin Level Trough 8.8 mcg/mL (10.0-20.0) Vancomycin Last Dose Date Unk Vancomycin Last Dose Time Unk Glucose (Fingerstick) 170 mg/dL (70-99) PAT MOSHER MD Apr 26, 2019 20:39
[2019-04-26] MEDS: INSULIN GLARGINE 300 UNITS/3 ML INSULN.PEN. SQ SCH (21:17)
[2019-04-26 23:00] VITALS: BP 141/75
[2019-04-27 03:03] VITALS: BP 155/76
[2019-04-27 03:58] LABS: BASO % 1 % (0-3); EOS # 0.2 x10^3/uL (0.0-0.7); EOS % 3 % (0-3); HEMATOCRIT 29.5 % (39.0-53.0); HEMOGLOBIN 10.1 g/dL (13.0-17.5); LYMPH # 1.4 x10^3/uL (1.0-4.8); LYMPH % 19 % (24-48); MEAN CORPUSCULAR HEMOGLOBIN 30 pg (25-35); MEAN CORPUSCULAR HGB CONC 34 g/dL (31-37); MEAN CORPUSCULAR VOLUME 88 fL (79-100); MONO # 0.9 x10^3/uL (0.0-1.1); MONO % 14 % (0-9); NEUT # 4.4 x10^3uL (1.8-7.7); NEUT % 64 % (31-73); PLATELET COUNT 408 x10^3/uL (140-400); RED BLOOD COUNT 3.34 x10^6/uL (4.30-5.70)
[2019-04-27] MEDS: PIPERACILLIN/TAZOBACTAM 3.375 GM in IV NORMAL SALINE 50ML 50 ML IV SCH ×3 (04:57→23:03)
[2019-04-27] MEDS: oxyCODONE IR 5 MG TABLET PO PRN ×3 (05:11→20:52)
[2019-04-27] MEDS: VANCOMYCIN 1 GM in IV NORMAL SALINE 250ML 250 ML IV SCH ×3 (05:30→23:04)
[2019-04-27] MEDS ORDERED: PROCHLORPERAZINE 10 MG/2 ML VIAL. IV PRN (07:00)
[2019-04-27] MEDS ORDERED: HYDROmorphone 2 MG/ML VIAL IV PRN (07:00)
[2019-04-27] MEDS ORDERED: ONDANSETRON PF 4 MG/2 ML VIAL. IV PRN (07:00)
[2019-04-27] MEDS ORDERED: fentaNYL PF VIAL 100 MCG/2 ML VIAL IV PRN ×2 (07:00)
[2019-04-27] MEDS ORDERED: MORPHINE SULFATE 2 MG/ML VIAL. IV PRN (07:00)
[2019-04-27] MEDS ORDERED: LIDOCAINE 1% PF 2 ML VIAL. ID PRN (07:00)
[2019-04-27] MEDS ORDERED: IV RINGERS,LACTATED 1000ML 1,000 ML IV SCH (07:00)
[2019-04-27 07:15] VITALS: BP 144/67
[2019-04-27] MEDS ORDERED: fentaNYL PF VIAL 100 MCG/2 ML VIAL ONE ×2 (08:13→09:00)
[2019-04-27] MEDS ORDERED: MIDAZOLAM HCL/PF 2 MG/2 ML VIAL. ONE ×2 (08:13→09:00)
[2019-04-27] MEDS ORDERED: LIDOCAINE 2% PF 5 ML VIAL. ONE ×2 (08:14→09:00)
[2019-04-27] MEDS ORDERED: DEXAMETHASONE SOD PHOS 4 MG/ML VIAL ONE ×2 (08:14→09:00)
[2019-04-27] MEDS ORDERED: PROPOFOL 20 ML IV ONE (08:14)
[2019-04-27] MEDS ORDERED: ONDANSETRON PF 4 MG/2 ML VIAL. ONE ×2 (08:14→09:00)
[2019-04-27] MEDS: LACTOBACILLUS RHAMNOSUS GG 1 CAPSULE. PO SCH ×2 (08:19→20:52)
[2019-04-27] MEDS: CENEGERMIN BKBJ OS SCH ×7 (08:21→20:52)
[2019-04-27] MEDS: INSULIN LISPRO 300 UNITS/3 ML INSULN.PEN. SQ SCH ×3 (08:29→16:47)
--- NOTE | 2019-04-27 08:56 | PDOC ---
Infectious Disease Note Subjective Subjective Not hungry Pain controlled at the moment Denies N/V/SOA Vital Sign Vital Signs Vital Signs Date Time Temp Pulse Resp B/P (MAP) Pulse Ox O2 Delivery O2 Flow Rate FiO2 04/27/19 07:15 97.8 101 20 144/67 (92) 98 Room Air 97.8 Physical Exam PHYSICAL EXAM GENERAL: Resting quietly, Alert and NAD HEMT: Oral cavity clear LUNGS: Clear CV: S1 S2 ABD: Soft and nontender EXT: No gross edema or cyanosis, Left BKA. Finger is clean SKIN: Post-op dressing upper - wound is packed. Still some erythema but no odor QUALITY ASSOCIATE: Responding appropriately Labs Lab Laboratory Tests Test 04/26/19 12:02 04/26/19 13:25 04/26/19 16:46 04/26/19 20:44 Glucose (Fingerstick) 106 mg/dL (70-99) 170 mg/dL (70-99) 262 mg/dL (70-99) Vancomycin Level Trough 8.8 mcg/mL (10.0-20.0) Vancomycin Last Dose Date Unk Vancomycin Last Dose Time Unk Test 04/27/19 03:20 04/27/19 07:26 White Blood Count 7.0 x10^3/uL (4.0-11.0) Red Blood Count 3.34 x10^6/uL (4.30-5.70) Hemoglobin 10.1 g/dL (13.0-17.5) Hematocrit 29.5 % (39.0-53.0) Mean Corpuscular Volume 88 fL (79-100) Mean Corpuscular Hemoglobin 30 pg (25-35) Mean Corpuscular Hemoglobin Concent 34 g/dL (31-37) Red Cell Distribution Width 14.0 % (11.5-14.5) Platelet Count 408 x10^3/uL (140-400) Neutrophils (%) (Auto) 64 % (31-73) Lymphocytes (%) (Auto) 19 % (24-48) Monocytes (%) (Auto) 14 % (0-9) Eosinophils (%) (Auto) 3 % (0-3) Basophils (%) (Auto) 1 % (0-3) Neutrophils # (Auto) 4.4 x10^3uL (1.8-7.7) Lymphocytes # (Auto) 1.4 x10^3/uL (1.0-4.8) Monocytes # (Auto) 0.9 x10^3/uL (0.0-1.1) Eosinophils # (Auto) 0.2 x10^3/uL (0.0-0.7) Basophils # (Auto) 0.0 x10^3/uL (0.0-0.2) Glucose (Fingerstick) 194 mg/dL (70-99) Micro Microbiology 04/23/19 Anaerobic/Aerobic Culture, Resulted Pending 04/23/19 Anaerobic Culture Result 1 (BRADEN), Resulted Pending 04/23/19 Aerobic Culture, Resulted Pending 04/23/19 Aerobic Culture Result 1 (BRADEN), Resulted Pending 04/23/19 Gram Stain - Final, Resulted 04/23/19 Gram Stain Result 1 (BRADEN) - Final, Resulted 04/23/19 Gram Stain Result 2 (BRADEN) - Final, Resulted Objective Assessment Large abscess, right upper back s/p I and D w debridement, 04/25. Intra-op cultures pending GPC - in pairs Right third finger burn after soldering 2 weeks ago s/p I & D flexor tendon sheath and partial fingertip amputation for friable necrotic bone & infection, 04/25. Intra-op cultures pending Leukocytosis Diabetes with peripheral neuropathy Allergy to Bactrim h/o MRSA, klebsiella, E. faecalis (S-PCN), Citrobacter, group B strep Plan Plan of Care DID NOT SEE IN SURGERY - D/w nursing vanc and Zosyn Probiotics pre-op dexamethasone, 6/2 f/u cultures 04/23 Monitor WBC/temp and renal function closely Glycemic control Wound care consulted BREANNE BRUNSON MD Apr 27, 2019 08:56
[2019-04-27] MEDS ORDERED: PROPOFOL 10 MG/ML (20ML) VIAL. IV ONE (09:00)
[2019-04-27] MEDS ORDERED: PHENYLEPHRINE in 0.9% NACL PF 1 MG/10 ML SYRINGE. IV ONE ×2 (09:00→11:52)
[2019-04-27] MEDS ORDERED: DEXTROSE 50% 25 GM / 50ML DISP.SYRIN. IV ONE ×3 (10:42→12:45)
--- NOTE | 2019-04-27 12:31 | PDOC4 ---
Operative Note Operative Note Date of surgery: 04/27/2019 Preoperative diagnosis: Necrotic finger and flexor tenosynovitis Postoperative diagnosis: Same Operative procedure: Irrigation debridement to bone of right long finger with irrigation of flexor tendon infection and fingertip shortening and closure Surgeon Bela Anesthesia: Gen. Estimated blood loss: 25 mL Complications: None Operative indications: Patient is a 53-year-old male that injured his right long fingertip in a burn resulting in progressive infection osteomyelitis and flexor tenosynovium by synovitis. He had undergone surgery by Dr. Taylor but now has ongoing infection and necrosis of the distal remaining finger tissue. I had gone over with him the need to remove the tissue likely additional bone and depending on the involvement possible shortening and closure. He is certainly aware that if the infection is severe or persistent and unable to get closure he may have additional procedures or even a ray amputation. He wishes to proceed with surgical evaluation and treatment. Operative text: Patient was identified procedure verified patient placed in the supine position on the operating table. After adequate amounts of general anesthesia were administered the right upper extremity was prepped and draped in standard sterile fashion and after timeout was performed patient procedure identified and verified the necrotic tissue that was involved primarily on the volar aspect of the long finger was sharply removed with a scalpel. There was likewise a smaller amount of necrotic tissue on the dorsal aspect and debridement of subcutaneous tissue muscle fascia and bone which was shortened to approximately the mid middle phalanx level. Bleeding points were controlled by electrocautery thorough irrigation carried out normal saline solution and the flexor tendon sheath was opened from the distal palmar crease transverse incision and about 300 mL of fluid were irrigated through the tendon sheath long after it remained clear and no gross devitalized tissue was noted proximally. Closure was accomplished with nylon suture both over the distal palmar crease incision and the distal finger tube gauze was placed after Xeroform and sterile dressings. Patient was returned recovery room in stable condition having tolerated procedure well LYNDA MILLIGAN MD Apr 27, 2019 12:31
--- NOTE | 2019-04-27 13:10 | PDOC ---
MORRIS OSORIO RESERVOIR CARETAKER 04/27/19 1310: SURGICAL PROGRESS NOTE Subjective off unit for ortho surgery reviewed wound note--ok to place vac to back wound Vital Signs Vital Signs Date Time Temp Pulse Resp B/P (MAP) Pulse Ox O2 Delivery O2 Flow Rate FiO2 04/27/19 12:55 93 20 170/57 97 Room Air 04/27/19 12:40 10 04/27/19 12:25 97.5 97.5 I&O Intake and Output 04/27/19 07:00 Intake Total 1040 ml Output Total 900 ml Balance 140 ml Intake Oral 740 ml IV Total 300 ml Output Urine Total 900 ml # Voids 4 Labs Laboratory Tests Test 04/25/19 17:10 04/25/19 20:38 04/26/19 07:07 04/26/19 07:33 Glucose (Fingerstick) 232 mg/dL (70-99) 186 mg/dL (70-99) 279 mg/dL (70-99) Creatinine 0.7 mg/dL (0.7-1.3) Estimated GFR (Cockcroft-Gault) 118.9 Test 04/26/19 12:02 04/26/19 13:25 04/26/19 16:46 04/26/19 20:44 Glucose (Fingerstick) 106 mg/dL (70-99) 170 mg/dL (70-99) 262 mg/dL (70-99) Vancomycin Level Trough 8.8 mcg/mL (10.0-20.0) Vancomycin Last Dose Date Unk Vancomycin Last Dose Time Unk Test 04/27/19 03:20 04/27/19 07:26 04/27/19 10:32 04/27/19 10:39 White Blood Count 7.0 x10^3/uL (4.0-11.0) Red Blood Count 3.34 x10^6/uL (4.30-5.70) Hemoglobin 10.1 g/dL (13.0-17.5) Hematocrit 29.5 % (39.0-53.0) Mean Corpuscular Volume 88 fL (79-100) Mean Corpuscular Hemoglobin 30 pg (25-35) Mean Corpuscular Hemoglobin Concent 34 g/dL (31-37) Red Cell Distribution Width 14.0 % (11.5-14.5) Platelet Count 408 x10^3/uL (140-400) Neutrophils (%) (Auto) 64 % (31-73) Lymphocytes (%) (Auto) 19 % (24-48) Monocytes (%) (Auto) 14 % (0-9) Eosinophils (%) (Auto) 3 % (0-3) Basophils (%) (Auto) 1 % (0-3) Neutrophils # (Auto) 4.4 x10^3uL (1.8-7.7) Lymphocytes # (Auto) 1.4 x10^3/uL (1.0-4.8) Monocytes # (Auto) 0.9 x10^3/uL (0.0-1.1) Eosinophils # (Auto) 0.2 x10^3/uL (0.0-0.7) Basophils # (Auto) 0.0 x10^3/uL (0.0-0.2) Glucose (Fingerstick) 194 mg/dL (70-99) 54 mg/dL (70-99) 58 mg/dL (70-99) Test 04/27/19 11:02 04/27/19 12:31 Glucose (Fingerstick) 107 mg/dL (70-99) 55 mg/dL (70-99) Laboratory Tests Test 04/26/19 13:25 04/26/19 16:46 04/26/19 20:44 04/27/19 03:20 Vancomycin Level Trough 8.8 mcg/mL (10.0-20.0) Vancomycin Last Dose Date Unk Vancomycin Last Dose Time Unk Glucose (Fingerstick) 170 mg/dL (70-99) 262 mg/dL (70-99) White Blood Count 7.0 x10^3/uL (4.0-11.0) Red Blood Count 3.34 x10^6/uL (4.30-5.70) Hemoglobin 10.1 g/dL (13.0-17.5) Hematocrit 29.5 % (39.0-53.0) Mean Corpuscular Volume 88 fL (79-100) Mean Corpuscular Hemoglobin 30 pg (25-35) Mean Corpuscular Hemoglobin Concent 34 g/dL (31-37) Red Cell Distribution Width 14.0 % (11.5-14.5) Platelet Count 408 x10^3/uL (140-400) Neutrophils (%) (Auto) 64 % (31-73) Lymphocytes (%) (Auto) 19 % (24-48) Monocytes (%) (Auto) 14 % (0-9) Eosinophils (%) (Auto) 3 % (0-3) Basophils (%) (Auto) 1 % (0-3) Neutrophils # (Auto) 4.4 x10^3uL (1.8-7.7) Lymphocytes # (Auto) 1.4 x10^3/uL (1.0-4.8) Monocytes # (Auto) 0.9 x10^3/uL (0.0-1.1) Eosinophils # (Auto) 0.2 x10^3/uL (0.0-0.7) Basophils # (Auto) 0.0 x10^3/uL (0.0-0.2) Test 04/27/19 07:26 04/27/19 10:32 04/27/19 10:39 04/27/19 11:02 Glucose (Fingerstick) 194 mg/dL (70-99) 54 mg/dL (70-99) 58 mg/dL (70-99) 107 mg/dL (70-99) Test 04/27/19 12:31 Glucose (Fingerstick) 55 mg/dL (70-99) MALLIKA SUÁREZ MD 04/27/19 1327: SURGICAL PROGRESS NOTE Assessment/Plan Afebrile and normal wbc. Agree with Tequila's assessment and plan for wound vac MORRIS OSORIO APRN Apr 27, 2019 13:10 MALLIKA SUÁREZ MD Apr 27, 2019 13:27
[2019-04-27 13:30] VITALS: BP 129/79
[2019-04-27] MEDS: VANCOMYCIN PER PHARMACY MC PRN (14:16)
--- NOTE | 2019-04-27 14:36 | NUR ---
FRIDA following pt. Chart reviewed and JOEY RN. Pt is going to OR today for IND. Pt currently on IV abx. No dc recommendations at this time, Will continue to evaluate dc needs.
[2019-04-27 15:15] VITALS: BP 139/80
[2019-04-27 19:00] VITALS: BP 153/86
--- NOTE | 2019-04-27 19:33 | PN ---
DATE: 04/27/2019 LOCATION: Room 530. SUBJECTIVE: The patient is awake, alert, complains of his back itching at the wound VAC site. He is convinced that he is going to lose his right third finger. OBJECTIVE: VITAL SIGNS: Stable. He is afebrile. CHEST: Clear. HEART: Regular. ABDOMEN: Benign. A wound VAC present on the back. EXTREMITIES: Right third finger bandaged, but swollen and red for further debridement today of the same. LABORATORY DATA: White count has returned to normal at 7000, hemoglobin 10.1. Culture results are still pending. IMPRESSION: 1. Abscess back, status post drainage. 2. Diabetes with better blood sugars since I and D of abscess. 3. Infection right third finger with further debridement. PLAN: 1. Today, continue present antibiotics. Help of all consultants appreciated. PAT MOSHER MD DR: MEHRAN/denise JOB#: [id number] / [id number]
[2019-04-27] MEDS: INSULIN GLARGINE 300 UNITS/3 ML INSULN.PEN. SQ SCH (20:57)
[2019-04-27 23:00] VITALS: BP 145/90
[2019-04-28 03:00] VITALS: BP 157/87
[2019-04-28] MEDS: PIPERACILLIN/TAZOBACTAM 3.375 GM in IV NORMAL SALINE 50ML 50 ML IV SCH ×5 (05:01→23:00)
[2019-04-28] MEDS: VANCOMYCIN 1 GM in IV NORMAL SALINE 250ML 250 ML IV SCH ×4 (05:02→23:56)
[2019-04-28] MEDS: oxyCODONE IR 5 MG TABLET PO PRN ×3 (06:37→22:46)
[2019-04-28 07:00] VITALS: BP 142/70
--- NOTE | 2019-04-28 08:00 | NUR ---
Cenegermin Eye Drops (non-formulary patient supplied) medication does not scan.
--- NOTE | 2019-04-28 08:33 | PDOC ---
SURGICAL PROGRESS NOTE Subjective Patient complains of upper back itching Vital Signs Vital Signs Date Time Temp Pulse Resp B/P (MAP) Pulse Ox O2 Delivery O2 Flow Rate FiO2 04/28/19 07:00 98.1 107 18 142/70 (94) 97 Room Air 98.1 04/27/19 12:40 10 I&O Intake and Output 04/28/19 07:00 Intake Total 3350 ml Output Total 3660 ml Balance -310 ml Intake Oral 2550 ml IV Total 800 ml Output Urine Total 3650 ml Estimated Blood Loss 10 ml # Voids 1 PATIENT HAS A WELCH: No General: Alert, Oriented X3, Cooperative, No acute distress Skin: Other (upper back wound dressed with wound VAC) Labs Laboratory Tests Test 04/26/19 12:02 04/26/19 13:25 04/26/19 16:46 04/26/19 20:44 Glucose (Fingerstick) 106 mg/dL (70-99) 170 mg/dL (70-99) 262 mg/dL (70-99) Vancomycin Level Trough 8.8 mcg/mL (10.0-20.0) Vancomycin Last Dose Date Unk Vancomycin Last Dose Time Unk Test 04/27/19 03:20 04/27/19 07:26 04/27/19 10:32 04/27/19 10:39 White Blood Count 7.0 x10^3/uL (4.0-11.0) Red Blood Count 3.34 x10^6/uL (4.30-5.70) Hemoglobin 10.1 g/dL (13.0-17.5) Hematocrit 29.5 % (39.0-53.0) Mean Corpuscular Volume 88 fL (79-100) Mean Corpuscular Hemoglobin 30 pg (25-35) Mean Corpuscular Hemoglobin Concent 34 g/dL (31-37) Red Cell Distribution Width 14.0 % (11.5-14.5) Platelet Count 408 x10^3/uL (140-400) Neutrophils (%) (Auto) 64 % (31-73) Lymphocytes (%) (Auto) 19 % (24-48) Monocytes (%) (Auto) 14 % (0-9) Eosinophils (%) (Auto) 3 % (0-3) Basophils (%) (Auto) 1 % (0-3) Neutrophils # (Auto) 4.4 x10^3uL (1.8-7.7) Lymphocytes # (Auto) 1.4 x10^3/uL (1.0-4.8) Monocytes # (Auto) 0.9 x10^3/uL (0.0-1.1) Eosinophils # (Auto) 0.2 x10^3/uL (0.0-0.7) Basophils # (Auto) 0.0 x10^3/uL (0.0-0.2) Glucose (Fingerstick) 194 mg/dL (70-99) 54 mg/dL (70-99) 58 mg/dL (70-99) Test 04/27/19 11:02 04/27/19 12:31 04/27/19 13:10 04/27/19 16:43 Glucose (Fingerstick) 107 mg/dL (70-99) 55 mg/dL (70-99) 75 mg/dL (70-99) 281 mg/dL (70-99) Test 04/27/19 20:43 04/28/19 07:34 Glucose (Fingerstick) 352 mg/dL (70-99) 265 mg/dL (70-99) Laboratory Tests Test 04/27/19 10:32 04/27/19 10:39 04/27/19 11:02 04/27/19 12:31 Glucose (Fingerstick) 54 mg/dL (70-99) 58 mg/dL (70-99) 107 mg/dL (70-99) 55 mg/dL (70-99) Test 04/27/19 13:10 04/27/19 16:43 04/27/19 20:43 04/28/19 07:34 Glucose (Fingerstick) 75 mg/dL (70-99) 281 mg/dL (70-99) 352 mg/dL (70-99) 265 mg/dL (70-99) Assessment/Plan Upper back abscess status post I&D with wound VAC placement Continue antibiotics per infectious disease MALLIKA SUÁREZ MD Apr 28, 2019 08:33
[2019-04-28] MEDS: LACTOBACILLUS RHAMNOSUS GG 1 CAPSULE. PO SCH ×2 (09:17→22:26)
[2019-04-28] MEDS: CENEGERMIN BKBJ OS SCH ×5 (09:19→23:55)
--- NOTE | 2019-04-28 09:27 | PDOC ---
Infectious Disease Note Subjective Subjective Better and wanting to go Pain controlled at the moment Denies N/V/SOA/F/C/S/Rash ROS ROS ow/ neg Vital Sign Vital Signs Vital Signs Date Time Temp Pulse Resp B/P (MAP) Pulse Ox O2 Delivery O2 Flow Rate FiO2 04/28/19 07:00 98.1 107 18 142/70 (94) 97 Room Air 98.1 04/27/19 12:40 10 Physical Exam PHYSICAL EXAM GENERAL: looks well and Alert and NAD HEMT: Oral cavity clear LUNGS: Clear CV: S1 S2 ABD: Soft and nontender EXT: No gross edema or cyanosis, Left BKA. Finger is clean/ dresse SKIN: Post-op vac in place Still some erythema but improved erythema and induration DECK SCALER: Responding appropriately Labs Lab Laboratory Tests Test 04/27/19 10:32 04/27/19 10:39 04/27/19 11:02 04/27/19 12:31 Glucose (Fingerstick) 54 mg/dL (70-99) 58 mg/dL (70-99) 107 mg/dL (70-99) 55 mg/dL (70-99) Test 04/27/19 13:10 04/27/19 16:43 04/27/19 20:43 04/28/19 07:34 Glucose (Fingerstick) 75 mg/dL (70-99) 281 mg/dL (70-99) 352 mg/dL (70-99) 265 mg/dL (70-99) Micro Microbiology 04/23/19 Anaerobic/Aerobic Culture, Resulted Pending 04/23/19 Anaerobic Culture Result 1 (BRADEN), Resulted Pending 04/23/19 Aerobic Culture, Resulted Pending 04/23/19 Aerobic Culture Result 1 (BRADEN), Resulted Pending 04/23/19 Gram Stain - Final, Resulted 04/23/19 Gram Stain Result 1 (BRADEN) - Final, Resulted 04/23/19 Gram Stain Result 2 (BRADEN) - Final, Resulted Objective Assessment Large abscess, right upper back s/p I and D w debridement, 04/25. Staph aureus and GPC - in pairs/chains Right third finger burn after soldering 2 weeks ago s/p I & D flexor tendon sheath and partial fingertip amputation for friable necrotic bone & infection, 04/25. Intra-op cultures GNR/GPC - s/p I and D 04/27 and closure Leukocytosis - better Diabetes with peripheral neuropathy Allergy to Bactrim h/o MRSA, klebsiella, E. faecalis (S-PCN), Citrobacter, group B strep Plan Plan of Care vanc and Zosyn Probiotics pre-op dexamethasone, 04/25 and 04/27 f/u cultures 04/23 - hopefully change to po when ID available Monitor WBC/temp and renal function closely Wound care pe surg D/w nursing BREANNE BRUNSON MD Apr 28, 2019 09:27
[2019-04-28] MEDS: INSULIN LISPRO 300 UNITS/3 ML INSULN.PEN. SQ SCH ×3 (09:28→16:30)
[2019-04-28 11:00] VITALS: BP 165/78
--- NOTE | 2019-04-28 14:15 | NUR ---
Wound care team paged, d/t patient disconnected own wound vac; this nurse rebooted however, error code persists. Wound care team on board.
--- NOTE | 2019-04-28 14:59 | NUR ---
Wound Care: Patient seen per wound care follow up. See wound assessment. Patient under went surgery again on right middle finger. Wound was covered upon arrival. Dressing removed and wound cleansed, assessed, and pictured. redressed with Xeroform gauze, and gauze. Patient also has wound to left index finger, patient refuses to keep dressing in place. Patient has large abscess to upper back with wound vac in place at this time. Dressing removed and wound cleansed and assessed. will continue with Veraflo wound vac. Skin prepped and ostomy ring placed, one piece of oliver foam placed in wound, good seal maintained at 125mmHg continuous, with 8mL, dwell time of 7 minutes, every 4 hours. No other wounds noted. Patient is noncompliant. Bed lowered and call light in reach. Will follow up for wound vac placement. Spoke with RN regarding POC.
--- NOTE | 2019-04-28 14:59 | NUR ---
Treated patient low BS=41 with juice and monitoring
[2019-04-28 15:00] VITALS: BP 135/68
[2019-04-28] MEDS: VANCOMYCIN PER PHARMACY MC PRN (17:37)
--- NOTE | 2019-04-28 18:33 | PDOC ---
PROGRESS NOTES Subjective Subjective Problems overnight: Dressing to his right long finger got wet in the shower and he removed all but the Xeroform gauze just before I walked into the room. He noticed that the finger doesn't smell bad like it did before surgery Objective Vital Signs Vital Signs Date Time Temp Pulse Resp B/P (MAP) Pulse Ox O2 Delivery O2 Flow Rate FiO2 04/28/19 15:00 96.6 90 18 135/68 (90) 97 Room Air 96.6 04/28/19 10:34 10.0 Physical Exam On exam the incisions from the shortened finger and in his distal palm appear clean with minimal drainage, dressings were reapplied Labs Laboratory Tests Test 04/26/19 20:44 04/27/19 03:20 04/27/19 07:26 04/27/19 10:32 Glucose (Fingerstick) 262 mg/dL (70-99) 194 mg/dL (70-99) 54 mg/dL (70-99) White Blood Count 7.0 x10^3/uL (4.0-11.0) Red Blood Count 3.34 x10^6/uL (4.30-5.70) Hemoglobin 10.1 g/dL (13.0-17.5) Hematocrit 29.5 % (39.0-53.0) Mean Corpuscular Volume 88 fL (79-100) Mean Corpuscular Hemoglobin 30 pg (25-35) Mean Corpuscular Hemoglobin Concent 34 g/dL (31-37) Red Cell Distribution Width 14.0 % (11.5-14.5) Platelet Count 408 x10^3/uL (140-400) Neutrophils (%) (Auto) 64 % (31-73) Lymphocytes (%) (Auto) 19 % (24-48) Monocytes (%) (Auto) 14 % (0-9) Eosinophils (%) (Auto) 3 % (0-3) Basophils (%) (Auto) 1 % (0-3) Neutrophils # (Auto) 4.4 x10^3uL (1.8-7.7) Lymphocytes # (Auto) 1.4 x10^3/uL (1.0-4.8) Monocytes # (Auto) 0.9 x10^3/uL (0.0-1.1) Eosinophils # (Auto) 0.2 x10^3/uL (0.0-0.7) Basophils # (Auto) 0.0 x10^3/uL (0.0-0.2) Test 04/27/19 10:39 04/27/19 11:02 04/27/19 12:31 04/27/19 13:10 Glucose (Fingerstick) 58 mg/dL (70-99) 107 mg/dL (70-99) 55 mg/dL (70-99) 75 mg/dL (70-99) Test 04/27/19 16:43 04/27/19 20:43 04/28/19 07:34 04/28/19 11:41 Glucose (Fingerstick) 281 mg/dL (70-99) 352 mg/dL (70-99) 265 mg/dL (70-99) 249 mg/dL (70-99) Test 04/28/19 14:59 04/28/19 15:42 04/28/19 16:53 Glucose (Fingerstick) 41 mg/dL (70-99) 59 mg/dL (70-99) 111 mg/dL (70-99) Laboratory Tests Test 04/27/19 20:43 04/28/19 07:34 04/28/19 11:41 04/28/19 14:59 Glucose (Fingerstick) 352 mg/dL (70-99) 265 mg/dL (70-99) 249 mg/dL (70-99) 41 mg/dL (70-99) Test 04/28/19 15:42 04/28/19 16:53 Glucose (Fingerstick) 59 mg/dL (70-99) 111 mg/dL (70-99) Assessment Assessment POD# [1], S/P [irrigation debridement shortening right long finger for infection and flexor tenosynovitis] Plan Plan of Care Continue dressing changes as needed. Antibiotics per infectious disease, hop efully his distal tissue remains viable and gets good soft tissue coverage LYNDA MILLIGAN MD Apr 28, 2019 18:33
[2019-04-28 22:35] VITALS: BP 163/92
[2019-04-28] MEDS: INSULIN GLARGINE 300 UNITS/3 ML INSULN.PEN. SQ SCH (22:35)
[2019-04-29 02:48] VITALS: BP 155/88
[2019-04-29] MEDS: PIPERACILLIN/TAZOBACTAM 3.375 GM in IV NORMAL SALINE 50ML 50 ML IV SCH ×2 (06:03→14:00)
[2019-04-29 06:37] LABS: CREATININE 0.7 mg/dL (0.7-1.3); GFR 118.9
[2019-04-29] MEDS: VANCOMYCIN 1 GM in IV NORMAL SALINE 250ML 250 ML IV SCH ×2 (06:47→14:11)
[2019-04-29 07:00] VITALS: BP 144/80
[2019-04-29] MEDS: INSULIN LISPRO 300 UNITS/3 ML INSULN.PEN. SQ SCH ×2 (08:10→11:30)
[2019-04-29] MEDS: LACTOBACILLUS RHAMNOSUS GG 1 CAPSULE. PO SCH (08:11)
[2019-04-29] MEDS: CENEGERMIN BKBJ OS SCH ×4 (08:59→12:09)
--- NOTE | 2019-04-29 10:59 | PDOC ---
Infectious Disease Note Subjective Subjective Better and planning on leaving today AMA if need be Pain controlled at the moment Denies N/V/SOA/F/C/S/Rash ROS ROS o/w neg Vital Sign Vital Signs Vital Signs Date Time Temp Pulse Resp B/P (MAP) Pulse Ox O2 Delivery O2 Flow Rate FiO2 04/29/19 07:00 98.6 104 18 144/80 (101) 100 Room Air 98.6 04/28/19 23:46 10.0 Physical Exam PHYSICAL EXAM GENERAL: looks well and Alert and NAD HEMT: Oral cavity clear LUNGS: Clear CV: S1 S2 ABD: Soft and nontender EXT: No gross edema or cyanosis, Left BKA. Finger is clean with mild erythema. Sutures intact SKIN: Post-op vac in place Still some erythema but improved erythema and induration. FOOD SANITARIAN: Responding appropriately Labs Lab Laboratory Tests Test 04/28/19 11:41 04/28/19 14:59 04/28/19 15:42 04/28/19 16:53 Glucose (Fingerstick) 249 mg/dL (70-99) 41 mg/dL (70-99) 59 mg/dL (70-99) 111 mg/dL (70-99) Test 04/28/19 20:46 04/29/19 04:52 04/29/19 07:33 Glucose (Fingerstick) 227 mg/dL (70-99) 313 mg/dL (70-99) Creatinine 0.7 mg/dL (0.7-1.3) Estimated GFR (Cockcroft-Gault) 118.9 Micro Microbiology 04/23/19 Anaerobic/Aerobic Culture, Resulted Pending 04/23/19 Anaerobic Culture Result 1 (BRADEN), Resulted Pending 04/23/19 Aerobic Culture, Resulted Pending 04/23/19 Aerobic Culture Result 1 (BRADEN), Resulted Pending 04/23/19 Gram Stain - Final, Resulted 04/23/19 Gram Stain Result 1 (BRADEN) - Final, Resulted 04/23/19 Gram Stain Result 2 (BRADEN) - Final, Resulted Objective Assessment Large abscess, right upper back s/p I and D w debridement, 04/25. MRSA Right third finger burn after soldering 2 weeks ago s/p I & D flexor tendon sheath and partial fingertip amputation for friable necrotic bone & infection, 04/25. Intra-op cultures GNR/Staph aureus - s/p I and D 04/27 and closure Leukocytosis - better Dexamethasone 04/25 Diabetes with peripheral neuropathy Allergy to Bactrim h/o MRSA, klebsiella, E. faecalis (S-PCN), Citrobacter, group B strep Plan Plan of Care Planning to leave today. I explained that I do not have all the cults and therefore do not know what I am treating. I also explained that he may need IV abx depending on cults and finger response. I explained risk of finger worsening and gen sepsis. HE understands but is not staying. I told him I will given him some oral abx to keep him covered but since he is leaving AMA technically I should not. Reviewed the meds and potential side effects. I gave him a business card and said he could f/u next week RX given for Doxy/Augmentin to nursing Cont vanc and Zosyn if he stays Probiotics pre-op dexamethasone, 04/25 and 04/27 f/u cultures 04/23 - hopefully change to po when ID available Monitor WBC/temp and renal function closely Wound care pe surg D/w nursing BREANNE BRUNSON MD Apr 29, 2019 10:59
[2019-04-29 11:00] VITALS: BP 127/73
[2019-04-29] MEDS: oxyCODONE IR 5 MG TABLET PO PRN (12:13)
--- NOTE | 2019-04-29 13:09 | NUR ---
Patient states he is leaving, Wound Care Luci QUINTERO notified as Wound Care said to call if patient leaving AMA. Patient talked with Dr. Gasca this morning who told him still waiting on final culture results and that if he leaves it will be against medical advice but he left prescriptions for patient if he leaves. Patient states will wait for Wound Care to remove wound vac. Nicole QUINTEROgas charger notified patient leaving AMA.
--- NOTE | 2019-04-29 13:11 | NUR ---
Addendum: see nursing communication, paging Dr. Lima through ans. service to notify of patient leaving AMA.
--- NOTE | 2019-04-29 13:18 | PN ---
DATE: 04/28/2019 LOCATION: He is in room 530. SUBJECTIVE: The patient is awake, alert, pushing hard for discharge. I explained to him that we needed to have final cultures back to considering anything like that he is needed to be on IV antibiotics with back and right third finger infections ongoing, status post surgery and debridement of both. The patient states that he pushed around and rubbed around on his back wound yesterday and filled up all the canisters for the wound VAC almost immediately upon doing that and I had told him to discuss this with surgery when he saw them today as well as wound care. OBJECTIVE: VITAL SIGNS: Stable. He is afebrile. He is awake, alert. CHEST: Clear. HEART: Regular. ABDOMEN: Benign. Wound VAC is on back. EXTREMITIES: The right middle finger is dressed. It does appear at least at the base to be a little less red and swollen. The rest of it is bandaged. LABORATORY DATA: Cultures are still pending. Leukocytosis, improved. Sugars are much better with control of the infection. IMPRESSION: 1. Large abscess, right upper back, status post I and D with cultures pending. 2. Right third finger burn after soldering, status post I and D of the flexor tendon sheath and partial fingertip amputation. 3. Leukocytosis, improved. 4. Diabetes. 5. Peripheral neuropathy. PLAN: Continue present antibiotics. We will continue to push to keep the patient in the hospital, which he desperately needs at this point. PAT MOSHER MD DR: MEHRAN/denise JOB#: [id number] / [id number]
--- NOTE | 2019-04-29 13:40 | NUR ---
Wound care: Patient seen per wound care. See wound assessment. Patient is leaving AMA. Wound vac removed and wound cleansed, assessed, measured, and pictured. redressed with Aquacel Ag, ABD pad, and tape. Patient instructed to redress with Aquacel Ag on Friday and follow up in the wound clinic on Friday at 10:30. Patient v/u. The right middle finger redressed with Xeroform gauze and gauze pad. Patient no longer had the dressing to left index finger or the right arriaga, patient has removed the dressings consistently, no dressing reapplied per patient's request. Bed lowered and call light in reach. Patient educated on the importance of dressing changes and keeping wounds covered. Patient v/u. Patient reminded of his appointment at the clinic on Friday. Spoke with RN regarding POC. Vac taken down to processing.
--- NOTE | 2019-04-29 14:08 | NUR ---
Wound Care here to see patient, wound vac removed, see notes. Patient received prescription and his eye medication, patient packing belongings. Security notified to escort patient out.
--- NOTE | 2019-04-29 14:15 | NUR ---
Patient left AMA with relative with all belongings, his eye drops and prescriptions. Patient accompanied by Security and SURGICAL SUPPLY ASSISTANT.
--- NOTE | 2019-04-29 23:22 | PN ---
DATE: 04/29/2019 ROOM: 530. SUBJECTIVE: The patient is awake, alert, just finishing eating breakfast, is still pushing very hard towards discharge. I explained to him once again that there would be an Infectious Disease followup when all cultures are back and figure out what to cover him with. He states this morning he would even go with the PICC line if that was necessary to be able to get out of here today. OBJECTIVE: VITAL SIGNS: Stable. He is afebrile. CHEST: Clear. HEART: Regular. ABDOMEN: Benign. EXTREMITIES: Right middle finger with less swelling. Wound VAC remains in place on back, left yplmh-iow-xjci amputation site looks good. LABORATORY DATA: Cultures today show MRSA growing from his back abscess with finger culture is still pending at this point in time, but showing gram-negative rods and gram-positive cocci on gram stains to date. IMPRESSION: 1. Abscess on the back, status post incision and drainage. 2. Right third finger partial amputation and debridement due to burn and infection. 3. Diabetes. 4. Some hypoglycemia yesterday, suggesting we may have to back off a little bit on the insulin, although he is 313 this morning. PLAN: Continue present care with again discharge planning will be based on Infectious Disease and culture results. PAT MOSHER MD DR: MEHRAN/deinse JOB#: [id number] / [id number]
== END 2019-04-29 14:27 | disposition left against medical advice (07) | DRG 579 ==
LOC: 5 NORTH 18:50
PROVIDERS: ADMIT Family Medicine; ATTEND Family Medicine
PROC: 0LB70ZZ Excision of Right Hand Tendon, Open Approach (ICD-10-PCS; 2019-04-25)
PROC: 0W9K0ZZ Drainage of Upper Back, Open Approach (ICD-10-PCS; principal; 2019-04-25 08:00)
PROC: 0X6Q0Z1 Detachment at Right Middle Finger, High, Open Approach (ICD-10-PCS; 2019-04-25 08:00)
PROC: 0PBT0ZZ Excision of Right Finger Phalanx, Open Approach (ICD-10-PCS; 2019-04-27)
DX: L02.212 Cutaneous abscess of back [any part, except buttock and flank] (principal); E43 Unspecified severe protein-calorie malnutrition; E87.1 Hypo-osmolality and hyponatremia; L03.312 Cellulitis of back [any part except buttock and flank]; E78.5 Hyperlipidemia, unspecified; F17.200 Nicotine dependence, unspecified, uncomplicated; I25.10 Atherosclerotic heart disease of native coronary artery without angina pectoris; F32.9 Major depressive disorder, single episode, unspecified; F41.9 Anxiety disorder, unspecified; M19.90 Unspecified osteoarthritis, unspecified site; I10 Essential (primary) hypertension; M65.9 Synovitis and tenosynovitis, unspecified; E11.51 Type 2 diabetes mellitus with diabetic peripheral angiopathy without gangrene; E11.42 Type 2 diabetes mellitus with diabetic polyneuropathy; Z82.49 Family history of ischemic heart disease and other diseases of the circulatory system; Z68.22 Body mass index [BMI] 22.0-22.9, adult; Z86.14 Personal history of Methicillin resistant Staphylococcus aureus infection; Z88.1 Allergy status to other antibiotic agents; Z89.512 Acquired absence of left leg below knee; Z91.14 Patient's other noncompliance with medication regimen; Z88.8 Allergy status to other drugs, medicaments and biological substances; T23.021A Burn of unspecified degree of single right finger (nail) except thumb, initial encounter; E11.649 Type 2 diabetes mellitus with hypoglycemia without coma
CPT/HCPCS: 36415; 80048; 80053; 80202; 82565; 82962; 84145; 85007; 85025; 85651; 87071; 87075; 87186; A7015; J1100; J1815; J2001; J2250; J2270; J2370; J2405; J2543; J2704; J3010; J3370; J3490; J7040; J7042; J7050; J7120; A4461; J7030

== ENCOUNTER 2019-09-01 12:00 | Inpatient (IN) | payer OTHER ==
[~2019-09-01] VITALS: Ht 177.8 cm; Wt 75.5 kg
[~2019-09-01 12:00] MED LIST changes: +OXYC15TA PO; +[UNRECOGNIZED DRUG - CODE] OS
[2019-09-01 13:45] VITALS: BP 108/56
[2019-09-01] MEDS ORDERED: DEXTROSE 50% 25 GM / 50ML DISP.SYRIN. IV PRN (14:30)
[2019-09-01 15:00] VITALS: BP 135/70
[2019-09-01] MEDS ORDERED: VANCOMYCIN 1.75 GM in IV NORMAL SALINE 500ML BAG 500 ML IV ONE (15:00)
--- NOTE | 2019-09-01 15:22 | PDOC ---
Provider Note Provider Note Vascular consult dictated by Dr. Gipson. 54-year-old diabetic male known to our service with previous amputations (L BKA, right 1-2 toes), hx of right femoral endarterectomy. He presents with right foot dorsal open wound. This has infected, non-salvageable tissue with exposed tendon. He has healed left BKA, healed right 1-2 toe amptuations. Foot is warm. Cannot appreciate pedal pulses, palpable right and left femoral pulse. He has burn injuries on his right fingers, large open wound to right 2nd finger, small areas of black eschar. He will need arteriogram with possible right leg intervention tomorrow, with open toe amputation(s) to follow on Friday. Dr. Gipson will plan to debride the right second finger as well. We discussed this plan with patient in detail who exhibited understanding and agreed. Needs antibiotics per ID. Thank you for consult. PETRA GLORIA Sep 01, 2019 15:22
[2019-09-01 15:23] LABS: BASO # 0.1 x10^3/uL (0.0-0.2); BASO % 1 % (0-3); EOS # 0.1 x10^3/uL (0.0-0.7); EOS % 1 % (0-3); HEMATOCRIT 32.9 % (39.0-53.0); HEMOGLOBIN 11.2 g/dL (13.0-17.5); LYMPH # 1.7 x10^3/uL (1.0-4.8); LYMPH % 17 % (24-48); MEAN CORPUSCULAR HEMOGLOBIN 29 pg (25-35); MEAN CORPUSCULAR HGB CONC 34 g/dL (31-37); MEAN CORPUSCULAR VOLUME 86 fL (79-100); MONO # 0.6 x10^3/uL (0.0-1.1); MONO % 6 % (0-9); NEUT # 7.5 x10^3/uL (1.8-7.7); NEUT % 75 % (31-73); PLATELET COUNT 311 x10^3/uL (140-400); RED BLOOD COUNT 3.83 x10^6/uL (4.30-5.70); RED CELL DISTRIBUTION WIDTH 13.8 % (11.5-14.5); WHITE BLOOD COUNT 9.9 x10^3/uL (4.0-11.0)
[2019-09-01] MEDS: PIPERACILLIN/TAZOBACTAM 3.375 GM in IV NORMAL SALINE 50ML 50 ML IV SCH ×2 (15:39→23:37)
[2019-09-01] MEDS: oxyCODONE IR 5 MG TABLET PO PRN ×2 (15:40→22:35)
[2019-09-01 15:42] LABS: ALBUMIN 2.1 g/dL (3.4-5.0); ALBUMIN/GLOBULIN RATIO 0.5 (1.0-1.7); CALCIUM 8.8 mg/dL (8.5-10.1); CREATININE 0.8 mg/dL (0.7-1.3); GFR 101.5; TOTAL BILIRUBIN 0.1 mg/dL (0.2-1.0); TOTAL PROTEIN 6.7 g/dL (6.4-8.2)
[2019-09-01] MEDS: VANCOMYCIN PER PHARMACY MC PRN (16:02)
--- NOTE | 2019-09-01 16:02 | NUR ---
Pharmacy Vancomycin Dosing Note S: Consulted to monitor and dose vancomycin started 09/01/19. O: INO DONOHUE is a 54 year old M with , DIABETIC FOOT ULCER . Other Antibiotics: ZOSYN LABS: Last BUN: 27 Last Creatinine: 0.8 Creatinine Clearance: 107 mL/min Last WBC: 9.9 Vancomycin Dosing: Dosing Weight: Actual Target Trough: 10-20 A: Based on: VANCO dosing guidelines P: 1. Begin Vancomycin 1750mg LOAD dose, then 1000 mg IV q8h 2. Follow up Trough level on 09/02/19 at 1530 3. Pharmacy will continue to monitor, follow and adjust therapy as needed. JENY LAURA, [facility], 09/01/19 [id number]
[2019-09-01] MEDS ORDERED: PIP/TAZO PER PHARMACY MC PRN (16:30)
[2019-09-01] MEDS: INSULIN LISPRO 300 UNITS/3 ML VIAL. SQ SCH (17:28)
[2019-09-01] MEDS ORDERED: FLU VAX QS 2019-20 (36MOS+)/PF 0.5 ML SYRINGE. VAX IM ONE (18:30)
[2019-09-01 19:00] VITALS: BP 123/81
[2019-09-01] MEDS: INSULIN GLARGINE SYRINGE. SQ SCH (21:58)
--- NOTE | 2019-09-01 22:16 | CONS ---
DATE OF CONSULTATION: 09/01/2019 CHIEF COMPLAINT: Right foot nonhealing wounds and infection. HISTORY OF PRESENT ILLNESS: The patient is a 54-year-old male with a long history of bilateral lower extremity infected wounds requiring a left xxrcm-eun-kgry amputation in the past. He has also had a right first and second toe amputation. He reports for the past several weeks developing an open wound on his right foot over the dorsal aspect of the distal foot and the area of the fifth metatarsal bone region. He also has developed an ulcer on his heel. He states he saw the Wound Care doctor this past Friday and he has now been admitted to the hospital for treatment. He reports some mild pain in his right foot. He has been walking with a prosthesis with his left znpuc-lap-ikyk amputation. He did require multiple surgeries on his left foot and then ultimately a below-knee amputation on the left leg in the past because of infections. He has a history of peripheral arterial disease. In his right leg in 2012, he had a femoral endarterectomy on the right. In 2017, he had a right femoral and popliteal artery thrombectomy per chart review. He also in the past has had a right third finger amputation by Orthopedic Surgery. He states he suffered some burn injuries recently to his right hand and has a fairly large wound on his right second finger on the plantar surface of the finger and several other small eschar type wounds in other areas that are more superficial in his fingers. He has no other complaints at this time. REVIEW OF SYSTEMS: A 10-point review of system was performed, which is otherwise negative besides what is mentioned in the history of present illness. PAST MEDICAL HISTORY: Includes: 1. Peripheral arterial disease. 2. Diabetes mellitus. 3. Peripheral neuropathy. 4. Coronary artery disease. 5. Hyperlipidemia. 6. Hypertension. 7. Chronic back pain. PAST SURGICAL HISTORY: Includes: 1. Right femoral endarterectomy in 2012. 2. Right femoral and popliteal artery thrombectomy in 2017. 3. Left avdyr-luz-pkkj amputation. 4. Right first and second toe amputations. 5. Back surgery. ALLERGIES: INCLUDE BACTRIM. SOCIAL HISTORY: The patient continues to smoke and has a history of medical noncompliance. FAMILY HISTORY: Significant for diabetes mellitus. PHYSICAL EXAMINATION: GENERAL: The patient is awake and alert, resting comfortably in the bed, in no apparent distress. He has just been admitted to the hospital. VITAL SIGNS: There are no vital signs recorded at this time in the computer. NECK: Supple. ABDOMEN: Soft, nondistended and nontender. EXTREMITIES: His left lower extremity has a below-knee amputation scar, which is well healed with no tissue breakdown. His right leg is warm with no tissue breakdown in the leg itself. The right foot has a previous first and second toe amputation incision, which is healed. His right foot on the dorsal aspect of the lateral foot has a large open necrotic wound overlying the area of the fifth metatarsal bone in the mid to distal foot with necrotic tissue throughout the wound bed, exposed tendon and bone. This is a fairly large wound, which is very close to the area of the fourth metatarsal as well. On his right heel, he has a superficial ulcer deep to the skin level. He has cellulitis localized to his wound on his right foot. There is no tissue breakdown of the toes themselves. He has scars in his right groin and medial calf from previous surgery with no tissue breakdown. He has a palpable right femoral pulse. I cannot palpate pulses in his right foot, but no signs of acute ischemia. He has intact motor and sensory function. He has a palpable left femoral pulse. His right arm is warm with a palpable radial pulse. He has burn injuries on his right fingers, which are chronic. On his second finger on the plantar surface, he has a large open wound with some necrotic subcutaneous tissue throughout the wound bed. There were small areas of less black eschar and other areas of his fingers; however, no deeper wounds at these locations. His right third finger has been amputated in the past and the incision has healed. There is no significant erythema of his right hand. His left hand has no tissue breakdown and a palpable radial pulse. NEUROLOGIC: He is awake and alert, oriented x 3, moving all 4 extremities with normal strength, no gross neurologic deficits. IMPRESSION: 1. Right foot open wound on the dorsal aspect overlying the fifth metatarsal bone with gangrene and exposed tendon and bone. 2. Right lower extremity peripheral arterial disease with previous femoral endarterectomy and femoral popliteal thrombectomy in the remote past. 3. Diabetes mellitus. 4. Right second finger open necrotic wound from a burn injury. 5. Left afnny-bry-qfbe amputation. PLAN: For his right foot, he will need surgical amputation of his right fifth toe including into the foot to excise at least the distal and mid metatarsal bone to excise the large necrotic wound. He may need third and fourth toe amputations as well depending on the extent of the necrotic tissue. This amputation will need to be done in an open fashion because of significant infection with long-term wound care with a wound VAC dressing. His right heel ulcers are superficial and will not need any significant surgical intervention. I would recommend an angiogram of his right leg prior to intervention to ensure good circulation since he does have a significant history of arterial intervention in the past. We will arrange an angiogram with Interventional Radiology tomorrow and then plan tentatively surgical amputation on Friday. With his surgery, we will also debride the right second finger wound. Infectious Disease has been consulted for IV antibiotics. We will order a carotid artery duplex scan for his significant history of atherosclerotic disease. JONATAN MENDEZ MD DR: EDDIE/denise JOB#: [id number] / [id number]
[2019-09-01 23:00] VITALS: BP 143/73
[2019-09-02] VITALS (15 sets, daily range): BP systolic 123–157; BP diastolic 69–89
[2019-09-02] MEDS: VANCOMYCIN 1 GM in IV NORMAL SALINE 250ML 250 ML IV SCH ×3 (00:20→16:15)
[2019-09-02] MEDS: PIPERACILLIN/TAZOBACTAM 3.375 GM in IV NORMAL SALINE 50ML 50 ML IV SCH ×3 (06:34→17:47)
[2019-09-02] MEDS: INSULIN LISPRO 300 UNITS/3 ML VIAL. SQ SCH ×3 (08:14→16:37)
--- NOTE | 2019-09-02 08:27 | RAD ---
Clinical indications: Atherosclerotic disease.. Duplex sonography of the cervical portion of both carotid arteries was performed including color flow imaging and spectral waveform analysis with flow velocity measurement and cope scale evaluation. Right side: Peak systolic flow velocity of the CCA is 129 cm/sec. Peak systolic flow velocity of the ICA is 107 cm/sec. Thus, the ICA/CCA ratio is less than 1.0. Peak end diastolic flow velocity of the ICA is 42 cm/sec. The peak systolic velocity of the ECA is 142 cm/sec. Left side: Peak systolic flow velocity of the CCA is 109 cm/sec. Peak systolic flow velocity of the ICA is 106 cm/sec. Thus, the ICA/CCA ratio is less than 1.0. Peak end diastolic flow velocity of the ICA is 31 cm/sec. Peak systolic flow velocity of the ECA is 151 cm/sec. Mild soft plaque formation is seen within the carotid bulb and ICA on the right side. More prominent calcified plaque is seen within the left ICA and carotid bulb. This plaque is less than 50% on both sides.. Antegrade vertebral flow is seen bilaterally. The measurements were made using the NASCET criteria. Impression: Mild plaque formation is seen within the carotid bifurcations bilaterally more prominent on the left side which is less than 50% on both sides.. Electronically signed by: Obie Farr MD (09/02/2019 8:24 AM) [id number]
--- NOTE | 2019-09-02 08:28 | NUR ---
Patient verb. he signed consents 1t 1700 and agrees to all consents and procedures, not witnessed, so this RN witnessed consents at this time. Patient sleeping when not aroused. FSBG 326, 5 units humalog insulin SQ per order with NPO. Patient verb. understanding POC. Continue cares and monitor.
--- NOTE | 2019-09-02 08:56 | NUR ---
IP: Pt has a hx of mrsa in multiple wounds since 03/2018. Most current are L foot on 10/08/18, back & finger abscesses 04/25/19. Pt continues with open wounds requiring contact precautions.
--- NOTE | 2019-09-02 10:16 | PDOC ---
Infectious Disease Note Vital Sign Vital Signs Vital Signs Date Time Temp Pulse Resp B/P (MAP) Pulse Ox O2 Delivery O2 Flow Rate FiO2 09/02/19 08:00 Room Air 09/02/19 07:00 97.9 95 14 147/74 (98) 98 97.9 Labs Lab Laboratory Tests Test 09/01/19 15:05 09/01/19 17:07 09/01/19 20:53 09/02/19 07:50 White Blood Count 9.9 x10^3/uL (4.0-11.0) Red Blood Count 3.83 x10^6/uL (4.30-5.70) Hemoglobin 11.2 g/dL (13.0-17.5) Hematocrit 32.9 % (39.0-53.0) Mean Corpuscular Volume 86 fL (79-100) Mean Corpuscular Hemoglobin 29 pg (25-35) Mean Corpuscular Hemoglobin Concent 34 g/dL (31-37) Red Cell Distribution Width 13.8 % (11.5-14.5) Platelet Count 311 x10^3/uL (140-400) Neutrophils (%) (Auto) 75 % (31-73) Lymphocytes (%) (Auto) 17 % (24-48) Monocytes (%) (Auto) 6 % (0-9) Eosinophils (%) (Auto) 1 % (0-3) Basophils (%) (Auto) 1 % (0-3) Neutrophils # (Auto) 7.5 x10^3/uL (1.8-7.7) Lymphocytes # (Auto) 1.7 x10^3/uL (1.0-4.8) Monocytes # (Auto) 0.6 x10^3/uL (0.0-1.1) Eosinophils # (Auto) 0.1 x10^3/uL (0.0-0.7) Basophils # (Auto) 0.1 x10^3/uL (0.0-0.2) Erythrocyte Sedimentation Rate 64 (0-15) Prothrombin Time 12.0 SEC (11.7-14.0) Prothromb Time International Ratio 0.9 (0.8-1.1) Sodium Level 138 mmol/L (136-145) Potassium Level 4.0 mmol/L (3.5-5.1) Chloride Level 103 mmol/L (98-107) Carbon Dioxide Level 29 mmol/L (21-32) Anion Gap 6 (6-14) Blood Urea Nitrogen 27 mg/dL (8-26) Creatinine 0.8 mg/dL (0.7-1.3) Estimated GFR (Cockcroft-Gault) 101.5 BUN/Creatinine Ratio 34 (6-20) Glucose Level 198 mg/dL (70-99) Calcium Level 8.8 mg/dL (8.5-10.1) Total Bilirubin 0.1 mg/dL (0.2-1.0) Aspartate Amino Transf (AST/SGOT) 13 U/L (15-37) Alanine Aminotransferase (ALT/SGPT) 15 U/L (16-63) Alkaline Phosphatase 171 U/L (46-116) Total Protein 6.7 g/dL (6.4-8.2) Albumin 2.1 g/dL (3.4-5.0) Albumin/Globulin Ratio 0.5 (1.0-1.7) Glucose (Fingerstick) 348 mg/dL (70-99) 328 mg/dL (70-99) 326 mg/dL (70-99) Objective Assessment Right foot fifth metatarsal wound down to bone with gangrene and exposed tendon and bone. Right lower extremity PAD Sulfa allergy but states has been taking Bactrim Right 2nd finger open necrotic wound from a burn injury Dm H/o C-diff h/o MRSA, klebsiella, E. faecalis (S-PCN), Citrobacter, group B strep Plan Plan of Care Started Vanc and Zosyn 09/01 Await further Vascular work-up and surgery Fu labs and cults Thank you # [id number] BREANNE BRUNSON MD Sep 02, 2019 10:16
--- NOTE | 2019-09-02 10:56 | HP ---
ADMIT DATE: CHIEF COMPLAINT AND HISTORY OF PRESENT ILLNESS: This is a 54-year-old white male who is well known to ca as well as [facility]. The patient was seen in the [facility] some 2 days earlier for an ongoing followup for his left diabetic foot infection. The patient was not progressing well and they recommended admission for Vascular Surgery consult, debridement and IV antibiotics and it was arranged. The patient did not show up and called my office 2 days later stating he had ____ tied up and is ready to go to the hospital. He thus was admitted for the same. PAST MEDICAL HISTORY: Remarkable for longstanding insulin-dependent diabetes for which he is fully compliant with meds, diabetic retinopathy, diabetic neuropathy, BKA due to PAD and his diabetes, hyperlipidemia, hypertension, chronic back pain with failed back syndrome following a surgery at that point in time. He has a history of osteomyelitis, ADD, anxiety, has ongoing tobacco use disorder. MEDICATIONS: Brought with the patient, listed on the computer and have been addressed. ALLERGIES: HE IS ALLERGIC TO BACTRIM. SOCIAL HISTORY: Continues to smoke despite all of his problems. Does not abuse alcohol or drugs. He is single, lives in his parents' basement. FAMILY HISTORY: Noncontributory. REVIEW OF SYSTEMS: As mentioned above. PHYSICAL EXAMINATION: GENERAL: He is thinner, cachectic-appearing white male, resting comfortably in bed. VITAL SIGNS: Stable. He is afebrile. HEAD, EYES, EARS, NOSE AND THROAT: Remarkable for clotting of the right cornea. NECK: Supple, without or thyromegaly. CHEST: Clear to auscultation and percussion. HEART: Regular rate and rhythm without S3, S4 or murmur. ABDOMEN: Soft, nontender, without hepatosplenomegaly or masses. EXTREMITIES: Reveal right foot open wound on the dorsal aspect overlying the fifth metatarsal area with gangrene. No exposed tendon bone. IMPRESSION: Diabetic foot infection and peripheral arterial disease, diabetes, left aronx-nvf-bafm amputation. PLAN: IV antibiotics, cultures. ID consult, Vascular Surgery and Wound Care consults with treatment to follow. PAT MOSHER MD DR: MEHRAN/denise JOB#: [id number] / [id number]
[2019-09-02] MEDS ORDERED: HEPARIN for ARTERIAL LINE 1,500 ML ONE (11:52)
[2019-09-02] MEDS ORDERED: IODIXANOL 320 MG/ML 100 ML VIAL. ONE (11:52)
[2019-09-02] MEDS ORDERED: MIDAZOLAM HCL/PF 2 MG/2 ML VIAL. ONE (11:57)
[2019-09-02] MEDS ORDERED: fentaNYL PF VIAL 100 MCG/2 ML VIAL ONE (11:58)
[2019-09-02] MEDS ORDERED: LIDOCAINE WITH 8.4% SOD BICARB 3 ML DISP.SYRIN. ONE (12:02)
--- NOTE | 2019-09-02 12:11 | NUR ---
Report to Sheri HAYNES, see nursing communication. Patient to IR per bed.
[2019-09-02] MEDS ORDERED: fentaNYL PF VIAL 100 MCG/2 ML VIAL IV ONE (13:15)
[2019-09-02] MEDS ORDERED: LIDOCAINE WITH 8.4% SOD BICARB 3 ML DISP.SYRIN. IJ ONE (13:15)
[2019-09-02] MEDS ORDERED: MIDAZOLAM HCL/PF 2 MG/2 ML VIAL. IV ONE (13:15)
[2019-09-02] MEDS ORDERED: CONTRAST GIVEN. MC PRN (13:15)
[2019-09-02] MEDS ORDERED: IODIXANOL 320 MG/ML 100 ML VIAL. IART ONE (13:15)
--- NOTE | 2019-09-02 13:44 | NUR ---
Patient return to room per bed. Patient sleeping when not aroused, instructed keep left leg straight and still for 2 hours, bedrest flat for two hours and frequent VS. Patient verb. understanding, denies pain and requested to sleep. Left groin mynx closure dressing D&I, no bleeding, site soft, palpable femoral pulse. Left left warm to touch. See vascular assessment interventions and frequent VS record. Bed alarm set, side rails up times two, urinal at hand, call light at hand. Continue cares and monitor.
[2019-09-02] MEDS: VANCOMYCIN PER PHARMACY MC PRN ×2 (14:18→16:10)
--- NOTE | 2019-09-02 14:38 | NUR ---
See orders, patient verb. understanding bedrest until 5:30pm
--- NOTE | 2019-09-02 14:57 | CONS ---
DATE OF CONSULTATION: 09/02/2019 INFECTIOUS DISEASE CONSULTATION LOCATION: The patient is in room #569. REQUESTING PHYSICIAN: Dr. [place]. REASON FOR CONSULTATION: Diabetic foot ulcer. HISTORY OF PRESENT ILLNESS: The patient is a 54-year-old gentleman with a history of poorly controlled diabetes, history of methicillin-resistant Staphylococcus aureus, back bruise, and abscesses as well as right third finger burn requiring partial amputation and previous incision and drainage of his back wound. He does have a history of methicillin-resistant Staphylococcus aureus, Klebsiella, Enterococcus, Citrobacter, and group B infections as well as peripheral arterial disease. He states several weeks ago he was in his bare feet and dropped a ____ on his right fifth toe. He developed an open wound that had worsened. He states he presented to the wound care doctor this past Friday and has now been admitted for further evaluation. I was consulted and recommended institution of vancomycin and Zosyn. He has been evaluated by Dr. Gipson of Vascular Surgery. There are plans for him to undergo an angiogram of his right lower extremity and then undergo potential surgical amputation on the with debridement of his right second finger wound which apparently he burned recently and debridement of heel. Currently, the patient is lying in bed. He is a little bit uncomfortable. He states he has been on Bactrim for the past several days. He denies any fever, chills, or sweats. He has not had any nausea or vomiting; no gross shortness of air; passing his urine okay; no diarrhea. PAST MEDICAL HISTORY: Positive for uncontrolled diabetes, peripheral neuropathy, peripheral arterial disease, hyperlipidemia, hypertension, arthritis, attention deficit disorder, depression, anxiety, history of Clostridium difficile, coronary artery disease, chronic lumbar radiculopathy, and history of previous methicillin-resistant Staphylococcus aureus as well as history of Klebsiella, Enterococcus, Citrobacter, and group B strep infections. PAST SURGICAL HISTORY: Positive for incision and drainage of his back, partial amputation of his right third finger, right femoral endarterectomy, right fem-pop thrombectomy, left below-knee amputation, and right first and second toe amputations as well as previous back surgery. REVIEW OF SYSTEMS: Otherwise negative except as mentioned above. ALLERGIES: LISTED BACTRIM, but he states he has been taking Bactrim. SOCIAL HISTORY: Lives at home. He is a current smoker. FAMILY HISTORY: Noncontributory. CURRENT MEDICATIONS: Include vancomycin, Zosyn, and insulin. PHYSICAL EXAMINATION: VITAL SIGNS: He is afebrile, temperature 97.9, pulse 95, respirations 14, blood pressure 147/74, and satting 98% on room air. CONSTITUTIONAL: He appears comfortable, in no acute distress. HEENT: Right eye has mild cataract. Oral cavity: Pharynx is clear. He has dentures. NECK: Supple. No JVD. LUNGS: Clear to auscultation. HEART: S1, S2. ABDOMEN: Soft, nontender, and nondistended with positive bowel sounds. EXTREMITIES: He has left ____. His right second finger has a plantar wound on it. It has got some necrotic area to it. His right foot is currently well dressed with a clean dressing. SKIN: Warm to touch without signs of generalized rash. NEUROLOGIC: He answers questions appropriately. LABORATORY DATA: White count was 9.9, hemoglobin 11.2, platelets 311, neutrophils 75, sed rate 64, creatinine of 0.8, fingerstick glucose recently of 326, AST 13, ALT 15, alkaline phosphatase 171. IMPRESSION: 1. Right foot fifth metatarsal wound down to bone with gangrene, exposed tendon and bone. 2. Right lower extremity peripheral arterial disease. 3. SULFA ALLERGY but states he has been taking Bactrim. 4. Right second finger open necrotic wound from burn injury. 5. Diabetes. 6. History of Clostridium difficile. 7. History of methicillin-resistant Staphylococcus aureus, Klebsiella, Enterococcus, Citrobacter, and group B strep. RECOMMENDATIONS: Started on vancomycin and Zosyn for now. Await further vascular workup and surgery. Follow up labs and cultures. Thank you for asking to participate in the patient's care. If you have any questions, please do not hesitate to contact me. BREANNE BRUNSON MD DR: SUNIL/denise JOB#: [id number] / [id number]
--- NOTE | 2019-09-02 15:48 | NUR ---
Wound Care WOund care cosnult for mulitple wounds. Pt was seen in [facility] on Friday and was to be admitted that day. Pt did not return to ER until 09/01 for admission. orders: Do not bathe or shower with open wound. - No bath or shower water to open wound. Other - Cleanse all wounds and pat dry. R lateral foot: Iodoflex to wound bed, cover with Aquacel Ag, ABD pad, and kerlix. R heel: contact layer, Aquacel Ag, ABD pad, and kerlix. R fifth toe (blister): Skin prep, ABD pad, kerlix R index finger: Honey alginate and telfa. Posterior Neck: Bacitracin ointment BID. Dressings to be changed on 09/03, will follow up 09/04 after planned surgery.
[2019-09-02 16:05] LABS: VANC TR 14.4 mcg/mL (10.0-20.0)
--- NOTE | 2019-09-02 16:06 | NUR ---
Waiting for Vanco trough for 1600 dosing.
--- NOTE | 2019-09-02 16:10 | NUR ---
Vanco trough 14.4 per pharmacy, to go ahead with current dose. Patient verb. understanding POC.
--- NOTE | 2019-09-02 16:11 | NUR ---
Pharmacy Vancomycin Dosing Note S: Consulted to monitor and dose vancomycin started 09/01/19. O: CHARANJITINO Shipman is a 54 year old M with , DIABETIC FOOT ULCER . Other Antibiotics: ZOSYN LABS: Last BUN: 27 Last Creatinine: 0.8 Creatinine Clearance: 107 mL/min Last WBC: 9.9 Last Procalcitonin: - Tmax (past 24 hours): 98.6 Microbiology: I/O: 720/300 Drug Levels: Last Trough level: 14.4 on 09/02/19 at 1525 Last dose given 09/01/19 at 1538 Vancomycin Dosing: Dosing Weight: Actual Target Trough: 10-20 A: Based on: trough=14.4 P: 1. Continue Vancomycin 1000 mg IV q8h 2. Follow up Trough level on 09/02/19 at 1530 3. Pharmacy will continue to monitor, follow and adjust therapy as needed. ANOOP STEWART, [facility], 09/02/19 [id number]
--- NOTE | 2019-09-02 16:15 | PDOC ---
PROGRESS NOTES Subjective Subjective "I'm thirsty and hungry. Can you please get me some food and something other than water to drink?" Objective Objective Vascular Surgery Follow Up: General: patient seen at bedside. He remains somewhat groggy from the sedation after arteriogram. RLE: Foot dressing remains clean and intact. I have reviewed the [facility] notes. Assessment/Plan: 1. Right lower extremity peripheral arterial disease with previous femoral endarterectomy and femoral popliteal thrombectomy in the remote past. I have spoke with Dr. Gipson regarding results of arteriogram. Patient is now scheduled for Right external iliac to femoral artery bypass for severe PAD at 0730 fred morning. I have updated the patient on this plan and he verbalizes desire to "get it done." Preop orders have been completed. Dr. Gipson will see the patient in the morning prior to surgery to review this plan once again as patient is still groggy. 2. Right foot open wound on the dorsal aspect overlying the fifth metatarsal bone with gangrene and exposed tendon and bone. The patient will also be consented for open amputations of the right fifth toe, possible third and fourth toe amputations as well depending on the extent of the necrotic tissue, wound VAC dressing. 3. Right second finger open necrotic wound from a burn injury. The patient will be consented for right 2nd finger debridement during the previously described surgery. Vital Signs Date Time Temp Pulse Resp B/P (MAP) Pulse Ox O2 Delivery O2 Flow Rate FiO2 09/02/19 15:54 92 16 151/87 (108) 98 Room Air 09/02/19 13:37 97.5 97.5 09/02/19 13:22 2.0 Intake and Output 09/02/19 06:59 Intake Total 720 ml Output Total 300 ml Balance 420 ml Intake Oral 720 ml Output Urine Total 300 ml # Voids 2 Comment Review of Relevant I have reviewed the following items ludwig (where applicable) has been applied. Labs Laboratory Tests Test 09/01/19 15:05 09/01/19 17:07 09/01/19 20:53 09/02/19 07:50 White Blood Count 9.9 x10^3/uL (4.0-11.0) Red Blood Count 3.83 x10^6/uL (4.30-5.70) Hemoglobin 11.2 g/dL (13.0-17.5) Hematocrit 32.9 % (39.0-53.0) Mean Corpuscular Volume 86 fL (79-100) Mean Corpuscular Hemoglobin 29 pg (25-35) Mean Corpuscular Hemoglobin Concent 34 g/dL (31-37) Red Cell Distribution Width 13.8 % (11.5-14.5) Platelet Count 311 x10^3/uL (140-400) Neutrophils (%) (Auto) 75 % (31-73) Lymphocytes (%) (Auto) 17 % (24-48) Monocytes (%) (Auto) 6 % (0-9) Eosinophils (%) (Auto) 1 % (0-3) Basophils (%) (Auto) 1 % (0-3) Neutrophils # (Auto) 7.5 x10^3/uL (1.8-7.7) Lymphocytes # (Auto) 1.7 x10^3/uL (1.0-4.8) Monocytes # (Auto) 0.6 x10^3/uL (0.0-1.1) Eosinophils # (Auto) 0.1 x10^3/uL (0.0-0.7) Basophils # (Auto) 0.1 x10^3/uL (0.0-0.2) Erythrocyte Sedimentation Rate 64 (0-15) Prothrombin Time 12.0 SEC (11.7-14.0) Prothromb Time International Ratio 0.9 (0.8-1.1) Sodium Level 138 mmol/L (136-145) Potassium Level 4.0 mmol/L (3.5-5.1) Chloride Level 103 mmol/L (98-107) Carbon Dioxide Level 29 mmol/L (21-32) Anion Gap 6 (6-14) Blood Urea Nitrogen 27 mg/dL (8-26) Creatinine 0.8 mg/dL (0.7-1.3) Estimated GFR (Cockcroft-Gault) 101.5 BUN/Creatinine Ratio 34 (6-20) Glucose Level 198 mg/dL (70-99) Calcium Level 8.8 mg/dL (8.5-10.1) Total Bilirubin 0.1 mg/dL (0.2-1.0) Aspartate Amino Transf (AST/SGOT) 13 U/L (15-37) Alanine Aminotransferase (ALT/SGPT) 15 U/L (16-63) Alkaline Phosphatase 171 U/L (46-116) Total Protein 6.7 g/dL (6.4-8.2) Albumin 2.1 g/dL (3.4-5.0) Albumin/Globulin Ratio 0.5 (1.0-1.7) Glucose (Fingerstick) 348 mg/dL (70-99) 328 mg/dL (70-99) 326 mg/dL (70-99) Test 09/02/19 10:48 Glucose (Fingerstick) 240 mg/dL (70-99) Laboratory Tests Test 09/01/19 17:07 09/01/19 20:53 09/02/19 07:50 09/02/19 10:48 Glucose (Fingerstick) 348 mg/dL (70-99) 328 mg/dL (70-99) 326 mg/dL (70-99) 240 mg/dL (70-99) Medications Current Medications Insulin Glargine (Lantus Syringe) 20 unit QHS SQ Last administered on 09/01/19at 21:58; Start 09/01/19 at 21:00 Insulin Human Lispro (HumaLOG) 0-9 UNITS TIDWMEALS SQ Last administered on 09/02/19at 11:28; Start 09/01/19 at 17:00 Dextrose (Dextrose 50%-Water Syringe) 12.5 gm PRN Q15MIN PRN IV SEE COMMENTS; Start 09/01/19 at 14:30 Piperacillin Sod/ Tazobactam Sod 3.375 gm/Sodium Chloride 50 ml @ 100 mls/hr Q6HRS IV Last administered on 09/02/19at 11:23; Start 09/01/19 at 15:00 Vancomycin HCl (Vanco Per Pharmacy) 1 each PRN DAILY PRN MC SEE COMMENTS Last administered on 09/02/19at 14:18; Start 09/01/19 at 14:30 Oxycodone HCl (Roxicodone) 15 mg PRN Q4HRS PRN PO PAIN Last administered on 09/01/19at 22:35; Start 09/01/19 at 15:00 Vancomycin HCl 1.75 gm/Sodium Chloride 500 ml @ 250 mls/hr 1X ONCE IV Last administered on 09/01/19at 15:38; Start 09/01/19 at 15:00; Stop 09/01/19 at 16:59; Status DC Vancomycin HCl 1 gm/Sodium Chloride 250 ml @ 250 mls/hr Q8H IV Last administered on 09/02/19at 07:54; Start 09/02/19 at 00:00 Vancomycin HCl (Vancomycin Trough Level) 1 each 1X ONCE MC ; Start 09/02/19 at 15:30; Stop 09/02/19 at 15:31; Status DC Piperacillin Sod/ Tazobactam Sod (Zosyn Per Pharmacy) 1 each PRN DAILY PRN MC SEE COMMENTS; Start 09/01/19 at 16:30 Influenza Virus Vaccine Quadrival (Afluria Quad 2019-20 (3yr Up) Syringe) 0.5 ml ONCE ONCE VAX IM Last administered on 09/01/19at 18:48; Start 09/01/19 at 18:30; Stop 09/01/19 at 18:31; Status DC Cefazolin Sodium 1 gm/Sodium Chloride 250 ml @ 250 mls/hr 1X ONCE IV ; Start 09/03/19 at 08:00; Stop 09/03/19 at 08:59 Iodixanol (Visipaque 320) 100 ml STK-MED ONCE .ROUTE ; Start 09/02/19 at 11:52; Stop 09/02/19 at 11:52; Status DC Heparin Sodium/ Sodium Chloride 1,500 ml @ As Directed STK-MED ONCE .ROUTE ; Start 09/02/19 at 11:52; Stop 09/02/19 at 11:53; Status DC Midazolam HCl (Versed) 2 mg STK-MED ONCE .ROUTE ; Start 09/02/19 at 11:57; Stop 09/02/19 at 11:58; Status DC Fentanyl Citrate (Fentanyl 2ml Vial) 100 mcg STK-MED ONCE .ROUTE ; Start 09/02/19 at 11:58; Stop 09/02/19 at 11:58; Status DC Lidocaine HCl (Buffered Lidocaine 1%) 3 ml STK-MED ONCE .ROUTE ; Start 09/02/19 at 12:02; Stop 09/02/19 at 12:02; Status DC Heparin Sodium/ Sodium Chloride (HEPARIN for ARTERIAL LINE FLUSH) 1,000 unit 1X ONCE IART Last administered on 09/02/19at 13:00; Start 09/02/19 at 13:15; Stop 09/02/19 at 13:16; Status DC Heparin Sodium/ Sodium Chloride (HEPARIN for ARTERIAL LINE FLUSH) 1,000 unit 1X ONCE IART Last administered on 09/02/19at 13:00; Start 09/02/19 at 13:15; Stop 09/02/19 at 13:16; Status DC Lidocaine HCl (Buffered Lidocaine 1%) 4 ml 1X ONCE IJ Last administered on 09/02/19at 13:18; Start 09/02/19 at 13:15; Stop 09/02/19 at 13:16; Status DC Midazolam HCl (Versed) 1 mg 1X ONCE IV Last administered on 09/02/19at 13:19; Start 09/02/19 at 13:15; Stop 09/02/19 at 13:16; Status DC Fentanyl Citrate (Fentanyl 2ml Vial) 50 mcg 1X ONCE IV Last administered on 09/02/19at 13:19; Start 09/02/19 at 13:15; Stop 09/02/19 at 13:16; Status DC Iodixanol (Visipaque 320) 73 ml 1X ONCE IART Last administered on 09/02/19at 13:18; Start 09/02/19 at 13:15; Stop 09/02/19 at 13:16; Status DC Info (CONTRAST GIVEN -- Rx MONITORING) 1 each PRN DAILY PRN MC SEE COMMENTS; Start 09/02/19 at 13:15; Stop 09/04/19 at 13:14 Bacitracin (Bacitracin Zinc Oint Pkt) 1 pkt BID TP ; Start 09/02/19 at 21:00 Ondansetron HCl (Zofran) 4 mg PRN Q6HRS PRN IV NAUSEA/VOMITING; Start 09/03/19 at 07:00; Stop 09/04/19 at 06:59 Fentanyl Citrate (Fentanyl 2ml Vial) 25 mcg PRN Q5MIN PRN IV MILD PAIN 1-3; Start 09/03/19 at 07:00; Stop 09/04/19 at 06:59 Fentanyl Citrate (Fentanyl 2ml Vial) 50 mcg PRN Q5MIN PRN IV MODERATE TO SEVERE PAIN; Start 09/03/19 at 07:00; Stop 09/04/19 at 06:59 Morphine Sulfate (Morphine Sulfate) 1 mg PRN Q10MIN PRN IV SEVERE PAIN 7-10; Start 09/03/19 at 07:00; Stop 09/04/19 at 06:59 Ringer's Solution 1,000 ml @ 30 mls/hr Q24H IV ; Start 09/03/19 at 07:00; Stop 09/03/19 at 18:59 Lidocaine HCl (Xylocaine-Mpf 1% 2ml Vial) 2 ml PRN 1X PRN ID PRIOR TO IV START; Start 09/03/19 at 07:00; Stop 09/04/19 at 06:59 Hydromorphone HCl (Dilaudid) 0.5 mg PRN Q10MIN PRN IV SEV PAIN, Second choice; Start 09/03/19 at 07:00; Stop 09/04/19 at 06:59 Prochlorperazine Edisylate (Compazine) 5 mg PACU PRN PRN IV NAUSEA, MRX1; Start 09/03/19 at 07:00; Stop 09/04/19 at 06:59 Active Scripts Active Reported Oxervate (Cenegermin-Bkbj) 1 Ml Drops 1 Ml OS 6XDAY 30 Days Oxycodone Hcl Immed.release (Oxycodone Hcl) 15 Mg Tablet 15 Mg PO PRN Q4HRS PRN Tresiba Flextouch U-100 (Insulin Degludec) 100 Unit/1 Ml Insuln.pen 20 Unit SQ HS Humalog (Insulin Lispro) 100 Unit/1 Ml Cartridge 60 Unit SQ TIDBFRMEAL Vitals/I & O Vital Sign - Last 24 Hours 09/01/19 09/01/19 09/01/19 09/01/19 16:51 18:04 19:00 20:00 Temp 98.3 98.3 Pulse 115 Resp 18 B/P (MAP) 123/81 (95) Pulse Ox 96 O2 Delivery Room Air Room Air Room Air Room Air 09/01/19 09/01/19 09/01/19 09/02/19 22:35 23:00 23:35 03:00 Temp 98.6 98.6 Pulse 114 98 Resp 20 18 18 18 B/P (MAP) 143/73 (96) 135/78 (97) Pulse Ox 96 94 97 97 O2 Delivery Room Air Room Air Room Air Room Air 09/02/19 09/02/19 09/02/19 09/02/19 07:00 08:00 11:00 13:19 Temp 97.9 97.9 97.9 97.9 Pulse 95 92 Resp 14 16 15 B/P (MAP) 147/74 (98) 146/84 (104) Pulse Ox 98 97 100 O2 Delivery Room Air Room Air Room Air Nasal Cannula O2 Flow Rate 2.0 09/02/19 09/02/19 09/02/19 09/02/19 13:22 13:37 13:49 13:52 Temp 97.5 97.5 Pulse 86 86 92 Resp 20 16 16 16 B/P (MAP) 131/72 (91) 143/76 (98) Pulse Ox 99 97 97 99 O2 Delivery Nasal Cannula Room Air Room Air Room Air O2 Flow Rate 2.0 09/02/19 09/02/19 09/02/19 09/02/19 14:10 14:22 14:56 15:22 Pulse 90 86 84 87 Resp 16 16 16 16 B/P (MAP) 138/75 (96) 126/74 (91) 123/70 (87) 123/69 (87) Pulse Ox 100 100 96 98 O2 Delivery Room Air Room Air Room Air Room Air 09/02/19 15:54 Pulse 92 Resp 16 B/P (MAP) 151/87 (108) Pulse Ox 98 O2 Delivery Room Air Intake and Output 09/01/19 09/01/19 09/02/19 14:59 22:59 06:59 Intake Total 480 ml 240 ml Output Total 300 ml Balance 180 ml 240 ml LOIDA SNELL APRN Sep 02, 2019 16:15
[2019-09-02] MEDS: BACITRACIN TOPICAL OINT PACKET. TP SCH (21:00)
[2019-09-02] MEDS: MORPHINE SULFATE 2 MG/ML VIAL. IV PRN (21:07)
[2019-09-02] MEDS: oxyCODONE IR 5 MG TABLET PO PRN (21:07)
[2019-09-02] MEDS: INSULIN GLARGINE SYRINGE. SQ SCH (21:16)
[2019-09-03] MEDS: oxyCODONE IR 5 MG TABLET PO PRN (01:00)
[2019-09-03] MEDS: MORPHINE SULFATE 2 MG/ML VIAL. IV PRN (01:02)
[2019-09-03] MEDS: VANCOMYCIN 1 GM in IV NORMAL SALINE 250ML 250 ML IV SCH ×5 (01:03→23:59)
[2019-09-03] MEDS: PIPERACILLIN/TAZOBACTAM 3.375 GM in IV NORMAL SALINE 50ML 50 ML IV SCH ×5 (01:03→23:24)
[2019-09-03 03:00] VITALS: BP 170/85
[2019-09-03 05:27] LABS: CREATININE 0.8 mg/dL (0.7-1.3); GFR 101.5; POTASSIUM 4.2 mmol/L (3.5-5.1)
[2019-09-03] MEDS ORDERED: INSULIN LISPRO 100 UNIT/ML 3ML VIAL for OP,RR ONLY. SQ PRN (06:15)
[2019-09-03] MEDS: INSULIN LISPRO 300 UNITS/3 ML VIAL. SQ SCH ×4 (06:36→17:32)
[2019-09-03] MEDS ORDERED: ONDANSETRON PF 4 MG/2 ML VIAL. IV PRN (07:00)
[2019-09-03] MEDS ORDERED: IV RINGERS,LACTATED 1000ML 1,000 ML IV SCH (07:00)
[2019-09-03] MEDS ORDERED: LIDOCAINE 1% PF 2 ML VIAL. ID PRN (07:00)
[2019-09-03] MEDS ORDERED: MORPHINE SULFATE 2 MG/ML VIAL. IV PRN (07:00)
[2019-09-03] MEDS ORDERED: PROCHLORPERAZINE 10 MG/2 ML VIAL. IV PRN (07:00)
[2019-09-03] MEDS ORDERED: HYDROmorphone 2 MG/ML VIAL IV PRN (07:00)
[2019-09-03] MEDS ORDERED: fentaNYL PF VIAL 100 MCG/2 ML VIAL IV PRN (07:00)
[2019-09-03] MEDS ORDERED: BUPIVACAINE MPF 0.25% 30 ML VIAL. ONE (07:02)
[2019-09-03] MEDS ORDERED: IOHEXOL 300 MG/ML 50 ML VIAL. ONE ×2 (07:02→10:04)
[2019-09-03] MEDS ORDERED: GELATIN SPONGE SIZE 100. ONE (07:02)
[2019-09-03] MEDS ORDERED: PAPAVERINE 60 MG/2 ML VIAL FOR OR ONLY. ONE (07:02)
[2019-09-03] MEDS ORDERED: SURGICEL FIBRILLAR 1X2 EACH. ONE ×2 (07:02→10:26)
[2019-09-03] MEDS ORDERED: THROMBIN TOPICAL 5,000 UNIT VIAL. ONE ×2 (07:02→08:32)
[2019-09-03] MEDS ORDERED: THROMBIN TOPICAL 20,000 UNIT SPRAY.SYRN KIT TP ONE (07:06)
[2019-09-03] MEDS ORDERED: PROPOFOL 20 ML IV ONE (07:12)
[2019-09-03] MEDS ORDERED: ROCURONIUM 50 MG/5 ML VIAL. ONE (07:13)
[2019-09-03] MEDS ORDERED: fentaNYL PF VIAL 100 MCG/2 ML VIAL ONE ×3 (07:13→11:53)
[2019-09-03] MEDS ORDERED: LIDOCAINE 2% PF 5 ML VIAL. ONE (07:17)
[2019-09-03] MEDS ORDERED: HEPARIN SODIUM 5,000 UNIT in IV NORMAL SALINE 500ML BAG 500 ML IRR ONE (07:30)
[2019-09-03] MEDS ORDERED: NALOXONE 0.4 MG/ML VIAL. IV PRN (07:45)
[2019-09-03] MEDS ORDERED: 1/2 NORMAL SALINE IV ONE (08:00)
[2019-09-03] MEDS ORDERED: CEFAZOLIN SODIUM IV ONE (08:00)
--- NOTE | 2019-09-03 08:43 | PN ---
DATE: 09/03/2019 LOCATION: He is in room 569. SUBJECTIVE: I have seen the patient this morning in preop holding area. He denies any specific complaints other than he is requesting larger meals. OBJECTIVE: VITAL SIGNS: Stable. He is afebrile. CHEST: Clear. HEART: Regular. ABDOMEN: Benign. LABORATORY DATA: Sugars have remained quite elevated. BNP this morning is essentially unremarkable. Angiogram from yesterday's results are pending. IMPRESSION: 1. Diabetic foot. 2. Poor compliance with treatment as an outpatient. 3. Retinopathy 4. Neuropathy. 5. Hyperlipidemia. 6. Hypertension. PLAN: Surgical intervention today for debridement and partial amputation of the foot. I discussed with the patient needs a stay in the hospital until we tell him that he can be dismissed. He verbalizes understanding of that currently, but from his prior records, I doubt unless he is getting food and some freedom in the room that he will likely leave AMA at some point in time. PAT MOSHER MD DR: MEHRAN/denise JOB#: [id number] / [id number]
[2019-09-03] MEDS ORDERED: HEPARIN for IV BOLUS 10,000 UNIT/10 ML VIAL. ONE (08:52)
[2019-09-03] MEDS ORDERED: DEXAMETHASONE SOD PHOS 4 MG/ML VIAL ONE (08:57)
[2019-09-03] MEDS ORDERED: ONDANSETRON PF 4 MG/2 ML VIAL. ONE (08:57)
[2019-09-03] MEDS ORDERED: SEVOFLURANE > 120 MINUTES. IH ONE (08:57)
[2019-09-03] MEDS ORDERED: INSULIN REGULAR VIAL 150 UNIT in 0.9 % SODIUM CHLORIDE 150ML 150 ML IV PRN (09:00)
[2019-09-03] MEDS: BACITRACIN TOPICAL OINT PACKET. TP SCH ×2 (09:00→21:21)
[2019-09-03] MEDS ORDERED: GLYCOPYRROLATE 1 MG/5 ML VIAL. ONE (09:22)
[2019-09-03] MEDS ORDERED: NEOSTIGMINE METHYLSULFATE 5 MG/5 ML SYRINGE. ONE (09:22)
[2019-09-03] MEDS ORDERED: PROTAMINE 50 MG/5 ML VIAL. IV ONE (10:22)
--- NOTE | 2019-09-03 10:57 | NUR ---
Rehab screen completed. Pt would benefit from PT/OT eval and treat s/p right foot surgery. Please initiate if you agree. Pt will need a right foot weight bearing status to be able to participate in therapy. Addendum: 09/03/19 at 1059 by JERICHO TYLER PT Amended: Links added.
[2019-09-03] MEDS ORDERED: CLOPIDOGREL BISULFATE 75 MG TABLET PO ONE (11:15)
--- NOTE | 2019-09-03 11:17 | PDOC ---
BRIEF OPERATIVE NOTE Date: Sep 03, 2019 Pre-Op Diagnosis 1. PAD with right femoral occlusion 2. Nonhealing right foot wound 3. Right heel wound Post-Op Diagnosis Same Procedure Performed 1. Right external iliac endarterectomy 2. Right external iliac to common femoral artery bypass with 8mm PTFE 3. Intraop arteriogram with right mid SFA angioplasty with DCB 4. Right 5th toe ray amputation, open 5. Right heel superficial excisional debridement including skin, 3x3 6. Right 2nd finger superficial excisional debridement including skin Surgeon Joan Gipson MD Sports Nutritionist FARTUN Whitehead Anesthesia Type: General Blood Loss 200mL IV Fluid See anesthesia note Specimens Obtained Right 5th toe Findings Occlusion of previously done femoral PTFE Good doppler signal right PT immediate post op Complications None immediate Operative Note See dictated op note PETRA GLORIA Sep 03, 2019 11:16
[2019-09-03] MEDS: fentaNYL PF VIAL 100 MCG/2 ML VIAL IV PRN ×3 (11:54→21:49)
[2019-09-03 13:00] VITALS: BP 120/56
--- NOTE | 2019-09-03 13:01 | OP ---
DATE OF SURGERY: 09/03/2019 SURGEON: Joan Gipson M.D. COMPUTER HELP DESK SPECIALIST: FARTUN Whitehead PREOPERATIVE DIAGNOSES: 1. Right common femoral artery complete occlusion. 2. Right superficial femoral artery severe stenosis. 3. Nonhealing right lateral foot open necrotic wound with gangrene overlying the fifth metatarsal bone region. 4. Right heel necrotic ulcer. 5. Right second finger ulcer. POSTOPERATIVE DIAGNOSES: 1. Right common femoral artery complete occlusion. 2. Right superficial femoral artery severe stenosis. 3. Nonhealing right lateral foot open necrotic wound with gangrene overlying the fifth metatarsal bone region. 4. Right heel necrotic ulcer. 5. Right second finger ulcer. OPERATION PERFORMED: 1. Right external iliac artery to distal common bifemoral artery bypass using an 8 mm PTFE graft. 2. Right external iliac artery endarterectomy. 3. Right lower extremity angiogram. 4. Right mid superficial femoral artery angioplasty using initially a 5 mm diameter x 4 cm length regular angioplasty balloon followed by a 5 mm diameter x 4 cm length drug-coated balloon by [employer]. 5. Right fifth toe open ray amputation. 6. Right heel sharp excisional debridement removing necrotic skin and subcutaneous tissue, measurements after debridement were approximately 3 cm in width x 3 cm in length x superficial in depth. 7. Right second toe sharp excisional debridement of necrotic skin around his ulcer. BLOOD LOSS: 200 mL. ANESTHESIA USED: General anesthesia. INDICATIONS: The patient is a 54-year-old male with a long history of severe peripheral arterial disease and diabetes mellitus who has had a left [id number] amputation in the past and right first and second toe amputations. He has developed gangrene on his right lateral foot with an open necrotic wound overlying the fifth metatarsal bone region. An angiogram was performed of his right leg, which shows complete occlusion of the right common femoral artery from just above the region of the inguinal ligament all the way down to the superficial femoral artery origin. He has had previous right femoral thrombectomy and an interposition PTFE graft in the right groin. He also has severe stenosis of a segment of the mid right superficial femoral artery seen on angiogram. I recommended a right external iliac artery to distal common bifemoral artery bypass graft along with right leg angiogram and angioplasty of the superficial femoral artery. For his right foot, he will need at least a fifth toe open ray amputation with possible fourth toe amputation, debridement of his heel wound and debridement of a necrotic ulcer on his right second finger. Informed consent was obtained from the patient including the risks of bleeding, infection, need for further revascularization procedures in the future, need for further debridement or amputation in the future. DETAILS OF THE OPERATION: The patient was brought to the operating room and placed on table in supine position. He received general anesthesia monitored throughout the case by the anesthesiologist. He was prepped from his umbilicus through his left anterior thigh and his right leg and foot circumferentially by normal sterile fashion. We draped the patient and placed Ioban over the right leg and covered the lower leg. We made a longitudinal incision through the right groin through the previous scar, dissected down through copious amounts of subcutaneous tissue and dense scar down to the area of the femoral vessels. We dissected down to the area of the inguinal ligament. I identified the proximal femoral vessels by using a Doppler. We could hear arterial flow in the external iliac artery region. We dissected over this area down to the external iliac and old PTFE graft. We dissected out the PTFE graft circumferentially from its origin down to distally where it was anastomosed. Dictation Ends Here. JOAN GIPSON MD DR: EDDIE/denise JOB#: [id number] / [id number]
[2019-09-03] MEDS: VANCOMYCIN PER PHARMACY MC PRN (13:07)
--- NOTE | 2019-09-03 13:31 | OP ---
DATE OF SURGERY: 09/03/2019 CONTINUATION: Dissection was continued in the right groin down distally at the distal end of his PTFE graft where it was anastomosed to the distal common femoral artery at the area of the profunda. We dissected out the superficial femoral artery and placed a vessel loop around it, it was nice and soft. We also dissected out the profunda artery. Proximally, we dissected out the distal external iliac artery well under the inguinal ligament where it had a very strong palpable pulse within it. This was above the previous PTFE bypass anastomosis. I circled it with a vessel loop. We then heparinized with 7000 units of heparin. After 3 minutes, we then clamped the proximal end at the external iliac artery and I transected the PTFE graft. The anastomosis was very tight with intimal hyperplasia and old thrombus. I transected the external iliac artery above this at an area of healthy lumen. There was plaque within the lumen of the vessel and we performed an eversion endarterectomy of the external iliac artery, removing this plaque, so that we had a nice vessel to perform our anastomosis too. We removed the old PTFE graft down to the area of the profunda. I transected the PTFE graft just above the profunda and the lumen was wide open, we spatulated it and there was excellent backbleeding from the profunda artery and good backbleeding from the superficial femoral artery. I advanced the hemostat down the vessel. There was no plaque or thrombus and I felt this was a good area for a distal anastomosis. An 8 mm PTFE graft was chosen. I used the graft proximally and performed an end-to-end anastomosis between the external iliac artery and the PTFE graft with running HS-7 Prolene suture. After finishing this anastomosis, we clamped the graft and removed the clamp off the external iliac artery. There was pulsatile blood flow through the end of the graft. We irrigated with heparinized saline and reclamped it proximally. We cut the length to size and spatulated the end of the PTFE graft. I performed an end-to-end anastomosis between the PTFE graft and the open distal common femoral artery with running HS-7 Prolene suture. Prior to finishing this, we backbled the vessels, flushed with heparinized saline and finished our anastomosis. I then accessed the anterior wall of the PTFE graft with an access needle, advanced the wire down the superficial femoral artery, which I confirmed with fluoroscopy and exchanged the needle out for a 7-Congolese short sheath. I removed the dilator and wire. We used a long 0.035 wire advanced down the superficial femoral artery to the tibial vessels and it advanced easily. I then performed an angiogram that showed the superficial femoral artery was widely patent, but there was a severe stenosis within the mid vessel at the mid-thigh level. I initially angioplastied this with a regular 5 mm x 40 mm length angioplasty balloon. We repeated the angiogram and there was good patency of the vessel. A good response to the angioplasty. I then used a 5 x 40 mm length drug-coated [employer] balloon, performed a second angioplasty at the area of disease to help improve long-term patency. We inflated the balloon at the location, left it inflated for 3 minutes and then removed the balloon. We performed repeat angiogram that showed the superficial femoral artery was widely patent. There was no further significant stenosis at the area of disease and there was good flow to the lower leg. We shot an angiogram of the lower leg, which showed the distal superficial femoral artery and popliteal artery was widely patent. 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 We removed the wires, catheters and sheaths. I repaired the hole in the PTFE graft with HS-7 Prolene suture. We had strong dopplerable flow at the posterior tibial location at the foot. We irrigated the groin wound with copious amounts of antibiotic solution. We gained hemostasis. Fibrillar was left over the anastomosis. We closed the right groin wound with two layers of 2-0 Vicryl suture and closed the skin with marissa. A Prevena VAC dressing was placed over the right groin incision. In the right foot, we then performed an open ray amputation of the right fifth toe. I made an elliptical incision around the base of the fifth toe, dissected down along the metatarsal bone and extended our incision along the lateral foot to encircle the large open necrotic wound. I continued dissection through all tendons and muscles down to the metatarsal bone and transected the fifth metatarsal bone proximally within the wound, removing the toe. The bone was brought back within the wound with a rongeur. There was very good brisk bleeding throughout the wound bed. This was controlled with electrocautery. All tendons were removed from the wounds. There was no further necrotic tissue. I did not feel that his fourth toe needed an amputation at this point. We irrigated with copious amounts of antibiotic solution. The right heel had a necrotic superficial wound, I sharply excised necrotic skin and a small amount of underlying subcutaneous tissue to get to healthy tissue. We wrapped the foot with antibiotic-soaked gauze and the open amputation and fibrillar over the heel wrapped it with Kerlix and an Sharan bandage. I then sharply excised necrotic skin and callus around his right second finger ulcer, which is on the plantar surface of his finger. I did not have to remove any subcutaneous tissue or do any deep dissection. We placed Aquacel and a dressing around third finger. The patient tolerated the procedure well with no immediate complications. JONATAN MENDEZ MD DR: EDDIE/denise JOB#: [id number] / [id number]
--- NOTE | 2019-09-03 14:12 | NUR ---
SW following pt. Chart reviewed and DW RN. Pt lives at home with family. Pt has undergone a procedure in OR today and transferring to ICU. Rehab eval recommends PT/OT order once appropriate. ICU SS notified.
[2019-09-03] MEDS: IV NORMAL SALINE 1000ML BAG 1,000 ML IV SCH ×2 (14:13→21:22)
[2019-09-03] MEDS: MORPHINE SULFATE 4 MG/ML VIAL. IV PRN ×2 (14:14→18:31)
--- NOTE | 2019-09-03 14:58 | RAD ---
09/02/2019 1. Abdominal aortogram 2. Pelvic angiography 3. Right lower extremity angiography INDICATION: Right lower extremity wound Discussion: The procedure was explained in its entirety to the patient or the patients designated customer response representative by a member of the treatment team, including a discussion of the risks, benefits and commonly accepted alternatives to the procedure, as well as the expected consequences of no therapy whatsoever. Discussion of the risks included, but was not limited to, those that are most frequent and those that are rare but possibly severe or life-threatening, as well as the possibility of unforeseen complications. All elements of maximal sterile barrier technique including the use of a cap, mask, sterile gown, sterile gloves, large sterile sheet, appropriate hand hygiene, and 2% chlorhexidine for cutaneous antisepsis (or acceptable alternative antiseptic per current guidelines) were followed for this procedure. The left groin was prepped and draped using maximum sterile barrier technique. Ultrasound evaluation of left common femoral artery demonstrates artery patent, though diffuse atherosclerotic vascular disease is identified. The artery was accessed using direct ultrasound guidance and micropuncture technique. Reference ultrasound images were saved the medical record. A 5 Cymraes vascular sheath was placed. Catheter was advanced into the superior bowel aorta. Abdominal angiography was performed. The abdominal aorta demonstrates no aneurysm or high-grade stenosis. Limited visualization of major visceral arteries is unremarkable. The catheter was repositioned and pelvic angiography was performed. There is occlusion of the right common femoral artery from essentially its origin to just above the bifurcation of the SFA and profunda artery multiple well-developed collaterals from the posterior division of the internal iliac artery are seen which supplies the superficial femoral artery and profunda. The superficial femoral artery demonstrates a high-grade stenosis distally approximately 10 cm above the adductor canal. The popliteal artery is patent. Moderate stenosis of the proximal peroneal artery is seen. The anterior tibial artery is diminutive in caliber proximally and occludes in the mid leg. The posterior tibial artery is patent. Lateral plantar arteries patent. Some weak reconstitution of the dorsalis pedis artery appears to be present. The sheath was removed. A Mynx device was deployed to achieve hemostasis. Sterile dressings were applied. No immediate complications were seen. IMPRESSION: 1. 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 High-grade stenosis, distal right SFA 3. Moderate stenosis proximal left peroneal artery. 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 Total fluoroscopy time: 3.1 min Dose area product: 96 Gycm2 The procedures performed under conscious sedation including continuous cardiopulmonary monitoring via dedicated sedation nurse. [id number] sedation time: 44 minutes
[2019-09-03 15:00] VITALS: BP 125/66
--- NOTE | 2019-09-03 17:09 | NUR ---
Wound Care: Patient seen per wound care. Patient is well known to us from the clinic and previous admissions. Patient s/p surgery on right lateral foot. Dressing removed and wound cleansed, assessed, measured, and pictured. Recommendations to pack with Aquacel Ag, ABD pad, and kerlix. There is still some bleeding to wound bed and patient does not want wound vac at this time. Will reassess Friday for wound vac placement. Dressing applied. Bed lowered and call light in reach.
[2019-09-03 19:00] VITALS: BP 144/67
[2019-09-03] MEDS ORDERED: INSULIN GLARGINE SYRINGE. SQ SCH (21:00)
[2019-09-03] MEDS: LACTOBACILLUS RHAMNOSUS GG 1 CAPSULE. PO SCH (21:21)
[2019-09-03 22:49] VITALS: BP 139/65
[2019-09-03] MEDS ORDERED: INSULIN LISPRO 300 UNITS/3 ML VIAL. SQ ONE (23:00)
[2019-09-04] MEDS: MORPHINE SULFATE 4 MG/ML VIAL. IV PRN (00:31)
[2019-09-04 03:00] VITALS: BP 127/57
[2019-09-04] MEDS: PIPERACILLIN/TAZOBACTAM 3.375 GM in IV NORMAL SALINE 50ML 50 ML IV SCH ×3 (05:44→17:06)
[2019-09-04 07:00] VITALS: BP 127/58
[2019-09-04 07:23] LABS: BASO # 0.1 x10^3/uL (0.0-0.2); BASO % 1 % (0-3); EOS # 0.1 x10^3/uL (0.0-0.7); EOS % 1 % (0-3); HEMOGLOBIN 10.6 g/dL (13.0-17.5); LYMPH # 1.3 x10^3/uL (1.0-4.8); LYMPH % 14 % (24-48); MEAN CORPUSCULAR HEMOGLOBIN 29 pg (25-35); MEAN CORPUSCULAR HGB CONC 33 g/dL (31-37); MEAN CORPUSCULAR VOLUME 88 fL (79-100); MONO # 0.7 x10^3/uL (0.0-1.1); MONO % 7 % (0-9); NEUT # 7.2 x10^3/uL (1.8-7.7); NEUT % 77 % (31-73); PLATELET COUNT 262 x10^3/uL (140-400); RED BLOOD COUNT 3.64 x10^6/uL (4.30-5.70); RED CELL DISTRIBUTION WIDTH 14.6 % (11.5-14.5); WHITE BLOOD COUNT 9.4 x10^3/uL (4.0-11.0)
[2019-09-04 07:45] LABS: CALCIUM 8.6 mg/dL (8.5-10.1); CREATININE 0.7 mg/dL (0.7-1.3); GFR 118.4; MAGNESIUM 1.8 mg/dL (1.8-2.4); POTASSIUM 4.2 mmol/L (3.5-5.1)
[2019-09-04] MEDS: ELECTROLYTE (NON-ICU) PROTOCOL MC SCH (09:00)
[2019-09-04] MEDS: CLOPIDOGREL BISULFATE 75 MG TABLET PO SCH (09:08)
[2019-09-04] MEDS: LACTOBACILLUS RHAMNOSUS GG 1 CAPSULE. PO SCH ×2 (09:09→21:24)
[2019-09-04] MEDS: MULTIVITAMIN with MINERAL TABLET. PO SCH (09:09)
[2019-09-04] MEDS: oxyCODONE IR 5 MG TABLET PO PRN ×2 (09:09→19:27)
[2019-09-04] MEDS: ASPIRIN ENTERIC COATED 81 MG TABLET.DR. PO SCH (09:09)
[2019-09-04] MEDS: BACITRACIN TOPICAL OINT PACKET. TP SCH ×2 (09:10→21:24)
[2019-09-04] MEDS: VANCOMYCIN 1 GM in IV NORMAL SALINE 250ML 250 ML IV SCH ×3 (09:10→23:32)
[2019-09-04] MEDS: INSULIN LISPRO 300 UNITS/3 ML VIAL. SQ SCH ×3 (09:19→17:07)
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
[2019-09-04] MEDS: IV NORMAL SALINE 1000ML BAG 1,000 ML IV SCH ×2 (10:21→23:41)
[2019-09-04] MEDS: VANCOMYCIN PER PHARMACY MC PRN (10:34)
[2019-09-04 11:00] VITALS: BP 153/66
--- NOTE | 2019-09-04 12:44 | PDOC ---
Provider Note Provider Note vss, labs good after vasc surg- on vanc0/zosyn, will increase lantus re high glucose EMANUEL FOSTER MD Sep 04, 2019 12:44
--- NOTE | 2019-09-04 13:14 | PDOC ---
Provider Note Provider Note tolerating diet AF VSS awake and alert right groin prevena vac in place, no hematoma right leg warm with doppler DP/PT pulse, no swelling right 5th toe open amputation wound is clean with no bleeding I placed a wound vac to the right 5th open toe amputation wound at the bedside today A/P POD#1 right external iliac to distal common femoral artery bypass, SFA angioplasty and open 5th toe ray amputation - wound vac dressing placed today - aspirin and plavix daily - antibiotics per ID - d/c green and stop IV fluids JONATAN MENDEZ MD Sep 04, 2019 13:14
[2019-09-04] MEDS: INSULIN GLARGINE SYRINGE. SQ SCH (13:23)
[2019-09-04 15:00] VITALS: BP 165/71
[2019-09-04 19:05] VITALS: BP 154/80
[2019-09-04] MEDS ORDERED: INSULIN GLARGINE SYRINGE. SQ SCH (21:00)
[2019-09-04 23:44] VITALS: BP 155/77
[2019-09-05] MEDS: PIPERACILLIN/TAZOBACTAM 3.375 GM in IV NORMAL SALINE 50ML 50 ML IV SCH ×5 (00:54→23:57)
[2019-09-05] MEDS: oxyCODONE IR 5 MG TABLET PO PRN ×6 (00:58→21:11)
[2019-09-05 03:50] VITALS: BP 147/70
--- NOTE | 2019-09-05 05:42 | NUR ---
Pt. refusing heart monitor at this time, asked if we could readdress this issue after a while and pt. was agreeable to this.
[2019-09-05 07:08] VITALS: BP 134/65
[2019-09-05] MEDS: VANCOMYCIN 1 GM in IV NORMAL SALINE 250ML 250 ML IV SCH ×3 (08:38→23:57)
[2019-09-05] MEDS: ASPIRIN ENTERIC COATED 81 MG TABLET.DR. PO SCH (08:40)
[2019-09-05] MEDS: LACTOBACILLUS RHAMNOSUS GG 1 CAPSULE. PO SCH ×2 (08:40→21:11)
[2019-09-05] MEDS: MULTIVITAMIN with MINERAL TABLET. PO SCH (08:40)
[2019-09-05] MEDS: CLOPIDOGREL BISULFATE 75 MG TABLET PO SCH (08:40)
[2019-09-05] MEDS: BACITRACIN TOPICAL OINT PACKET. TP SCH ×2 (08:41→21:11)
[2019-09-05] MEDS: INSULIN GLARGINE SYRINGE. SQ SCH ×2 (08:45→21:16)
[2019-09-05] MEDS: INSULIN LISPRO 300 UNITS/3 ML VIAL. SQ SCH ×3 (08:46→16:41)
[2019-09-05] MEDS: ELECTROLYTE (NON-ICU) PROTOCOL MC SCH (08:46)
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
--- NOTE | 2019-09-05 09:53 | PDOC ---
Provider Note Provider Note AF VSS awake and alert right groin prevena in place, no hematoma right foot wound vac in place to 5th toe open amputation, foot is warm with no swelling A/P POD#2 right iliac to femoral bypass, SFA angioplasty and 5th toe open amputation - continue aspirin and plavix - wound vac change tomorrow - antibiotics per ID - he needs to be non weight bearing to the right foot with to heel ulcer and toe amputation, he also has left BKA JONATAN MENDEZ MD Sep 05, 2019 09:53
[2019-09-05 10:09] VITALS: BP 133/68
--- NOTE | 2019-09-05 10:27 | PDOC ---
Provider Note Provider Note no new sxs- vss, no temp- glucose still > 200 despite 60 u lantus so inc to 40 bid- last a1c 10.8 09/10- rest same EMANUEL FOSTER MD Sep 05, 2019 10:27
[2019-09-05] MEDS ORDERED: INSULIN GLARGINE SYRINGE. SQ SCH (10:30)
[2019-09-05 14:07] VITALS: BP 104/57
[2019-09-05] MEDS: VANCOMYCIN PER PHARMACY MC PRN (15:04)
[2019-09-05] MEDS ORDERED: diphenhydrAMINE 50 MG/ML VIAL IVP ONE (15:45)
--- NOTE | 2019-09-05 16:10 | NUR ---
PT refuses to wear tele monitor.
[2019-09-05 19:39] VITALS: BP 130/62
[2019-09-05 22:25] VITALS: BP 128/69
[2019-09-06] MEDS: oxyCODONE IR 5 MG TABLET PO PRN ×5 (01:29→22:30)
[2019-09-06 03:35] VITALS: BP 138/62
[2019-09-06 04:46] LABS: CREATININE 0.7 mg/dL (0.7-1.3); GFR 118.4
[2019-09-06] MEDS: PIPERACILLIN/TAZOBACTAM 3.375 GM in IV NORMAL SALINE 50ML 50 ML IV SCH ×4 (06:16→23:17)
[2019-09-06 07:00] VITALS: BP 138/71
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
[2019-09-06] MEDS: LACTOBACILLUS RHAMNOSUS GG 1 CAPSULE. PO SCH ×2 (08:38→22:30)
[2019-09-06] MEDS: BACITRACIN TOPICAL OINT PACKET. TP SCH ×2 (08:38→22:27)
[2019-09-06] MEDS: CLOPIDOGREL BISULFATE 75 MG TABLET PO SCH (08:38)
[2019-09-06] MEDS: VANCOMYCIN 1 GM in IV NORMAL SALINE 250ML 250 ML IV SCH ×3 (08:38→23:28)
[2019-09-06] MEDS: MULTIVITAMIN with MINERAL TABLET. PO SCH (08:39)
[2019-09-06] MEDS: ASPIRIN ENTERIC COATED 81 MG TABLET.DR. PO SCH (08:39)
[2019-09-06] MEDS: MORPHINE SULFATE 2 MG/ML VIAL. IV PRN ×3 (08:40→22:28)
[2019-09-06] MEDS: INSULIN LISPRO 300 UNITS/3 ML VIAL. SQ SCH ×3 (08:52→16:44)
[2019-09-06] MEDS: INSULIN GLARGINE SYRINGE. SQ SCH ×2 (08:53→22:43)
[2019-09-06] MEDS: ELECTROLYTE (NON-ICU) PROTOCOL MC SCH (09:00)
--- NOTE | 2019-09-06 09:42 | OP ---
DATE OF SURGERY: 09/03/2019 SURGEON: Joan Gipson M.D. APPLICATION SECURITY CONSULTANT: FARTUN Whitehead PREOPERATIVE DIAGNOSES: 1. Right common femoral artery complete occlusion. 2. Right superficial femoral artery severe stenosis. 3. Nonhealing right lateral foot open necrotic wound with gangrene overlying the fifth metatarsal bone region. 4. Right heel necrotic ulcer. 5. Right second finger ulcer. POSTOPERATIVE DIAGNOSES: 1. Right common femoral artery complete occlusion. 2. Right superficial femoral artery severe stenosis. 3. Nonhealing right lateral foot open necrotic wound with gangrene overlying the fifth metatarsal bone region. 4. Right heel necrotic ulcer. 5. Right second finger ulcer. OPERATION PERFORMED: 1. Right external iliac artery to distal common bifemoral artery bypass using an 8 mm PTFE graft. 2. Right external iliac artery endarterectomy. 3. Right lower extremity angiogram. 4. Right mid superficial femoral artery angioplasty using initially a 5 mm diameter x 4 cm length regular angioplasty balloon followed by a 5 mm diameter x 4 cm length drug-coated balloon by [employer]. 5. Right fifth toe open ray amputation. 6. Right heel sharp excisional debridement removing necrotic skin and subcutaneous tissue, measurements after debridement were approximately 3 cm in width x 3 cm in length x superficial in depth. 7. Right second toe sharp excisional debridement of necrotic skin around his ulcer. BLOOD LOSS: 200 mL. ANESTHESIA USED: General anesthesia. INDICATIONS: The patient is a 54-year-old male with a long history of severe peripheral arterial disease and diabetes mellitus who has had a left lnhop-gtl-rrat amputation in the past and right first and second toe amputations. He has developed gangrene on his right lateral foot with an open necrotic wound overlying the fifth metatarsal bone region. An angiogram was performed of his right leg, which shows complete occlusion of the right common femoral artery from just above the region of the inguinal ligament all the way down to the superficial femoral artery origin. He has had previous right femoral thrombectomy and an interposition PTFE graft in the right groin. He also has severe stenosis of a segment of the mid right superficial femoral artery seen on angiogram. I recommended a right external iliac artery to distal common bifemoral artery bypass graft along with right leg angiogram and angioplasty of the superficial femoral artery. For his right foot, he will need at least a fifth toe open ray amputation with possible fourth toe amputation, debridement of his heel wound and debridement of a necrotic ulcer on his right second finger. Informed consent was obtained from the patient including the risks of bleeding, infection, need for further revascularization procedures in the future, need for further debridement or amputation in the future. DETAILS OF THE OPERATION: The patient was brought to the operating room and placed on table in supine position. He received general anesthesia monitored throughout the case by the anesthesiologist. He was prepped from his umbilicus through his left anterior thigh and his right leg and foot circumferentially by normal sterile fashion. We draped the patient and placed Ioban over the right leg and covered the lower leg. We made a longitudinal incision through the right groin through the previous scar, dissected down through copious amounts of subcutaneous tissue and dense scar down to the area of the femoral vessels. We dissected down to the area of the inguinal ligament. I identified the proximal femoral vessels by using a Doppler. We could hear arterial flow in the external iliac artery region. We dissected over this area down to the external iliac and old PTFE graft. We dissected out the PTFE graft circumferentially from its origin down to distally where it was anastomosed. Dissection was continued in the right groin down distally at the distal end of his PTFE graft where it was anastomosed to the distal common femoral artery at the area of the profunda. We dissected out the superficial femoral artery and placed a vessel loop around it, it was nice and soft. We also dissected out the profunda artery. Proximally, we dissected out the distal external iliac artery well under the inguinal ligament where it had a very strong palpable pulse within it. This was above the previous PTFE bypass anastomosis. I circled it with a vessel loop. We then heparinized with 7000 units of heparin. After 3 minutes, we then clamped the proximal end at the external iliac artery and I transected the PTFE graft. The anastomosis was very tight with intimal hyperplasia and old thrombus. I transected the external iliac artery above this at an area of healthy lumen. There was plaque within the lumen of the vessel and we performed an eversion endarterectomy of the external iliac artery, removing this plaque, so that we had a nice vessel to perform our anastomosis too. We removed the old PTFE graft down to the area of the profunda. I transected the PTFE graft just above the profunda and the lumen was wide open, we spatulated it and there was excellent backbleeding from the profunda artery and good backbleeding from the superficial femoral artery. I advanced the hemostat down the vessel. There was no plaque or thrombus and I felt this was a good area for a distal anastomosis. An 8 mm PTFE graft was chosen. I used the graft proximally and performed an end-to-end anastomosis between the external iliac artery and the PTFE graft with running HS-7 Prolene suture. After finishing this anastomosis, we clamped the graft and removed the clamp off the external iliac artery. There was pulsatile blood flow through the end of the graft. We irrigated with heparinized saline and reclamped it proximally. We cut the length to size and spatulated the end of the PTFE graft. I performed an end-to-end anastomosis between the PTFE graft and the open distal common femoral artery with running HS-7 Prolene suture. Prior to finishing this, we backbled the vessels, flushed with heparinized saline and finished our anastomosis. I then accessed the anterior wall of the PTFE graft with an access needle, advanced the wire down the superficial femoral artery, which I confirmed with fluoroscopy and exchanged the needle out for a 7-Maltese short sheath. I removed the dilator and wire. We used a long 0.035 wire advanced down the superficial femoral artery to the tibial vessels and it advanced easily. I then performed an angiogram that showed the superficial femoral artery was widely patent, but there was a severe stenosis within the mid vessel at the mid-thigh level. I initially angioplastied this with a regular 5 mm x 40 mm length angioplasty balloon. We repeated the angiogram and there was good patency of the vessel. A good response to the angioplasty. I then used a 5 x 40 mm length drug-coated [employer] balloon, performed a second angioplasty at the area of disease to help improve long-term patency. We inflated the balloon at the location, left it inflated for 3 minutes and then removed the balloon. We performed repeat angiogram that showed the superficial femoral artery was widely patent. There was no further significant stenosis at the area of disease and there was good flow to the lower leg. We shot an angiogram of the lower leg, which showed the distal superficial femoral artery and popliteal artery was widely patent. 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 We removed the wires, catheters and sheaths. I repaired the hole in the PTFE graft with HS-7 Prolene suture. We had strong dopplerable flow at the posterior tibial location at the foot. We irrigated the groin wound with copious amounts of antibiotic solution. We gained hemostasis. Fibrillar was left over the anastomosis. We closed the right groin wound with two layers of 2-0 Vicryl suture and closed the skin with marissa. A Prevena VAC dressing was placed over the right groin incision. In the right foot, we then performed an open ray amputation of the right fifth toe. I made an elliptical incision around the base of the fifth toe, dissected down along the metatarsal bone and extended our incision along the lateral foot to encircle the large open necrotic wound. I continued dissection through all tendons and muscles down to the metatarsal bone and transected the fifth metatarsal bone proximally within the wound, removing the toe. The bone was brought back within the wound with a rongeur. There was very good brisk bleeding throughout the wound bed. This was controlled with electrocautery. All tendons were removed from the wounds. There was no further necrotic tissue. I did not feel that his fourth toe needed an amputation at this point. We irrigated with copious amounts of antibiotic solution. The right heel had a necrotic superficial wound, I sharply excised necrotic skin and a small amount of underlying subcutaneous tissue to get to healthy tissue. We wrapped the foot with antibiotic-soaked gauze and the open amputation and fibrillar over the heel wrapped it with Kerlix and an Sharan bandage. I then sharply excised necrotic skin and callus around his right second finger ulcer, which is on the plantar surface of his finger. I did not have to remove any subcutaneous tissue or do any deep dissection. We placed Aquacel and a dressing around third finger. The patient tolerated the procedure well with no immediate complications. JOAN GIPSON MD DR: EDDIE/denise JOB#: [id number] / [id number]
--- NOTE | 2019-09-06 09:55 | PDOC ---
Provider Note Provider Note S: Pt seen and examined in room this am. He has no complaints other than me waking him up. He reports he is pivoting to get around. Good appetite/intake/output. RN reports he is getting PICC line today. AF VSS, slightly tachycardic awake and alert, INAD right groin prevena in place with good suction, no hematoma right foot wound vac removed. Right 5th toe open amputation with minimal bleeding, tissue mostly pink with good granulation, plantar-distal portion has some brown-tee fatty tissue. Wound edges appear healthy. No necrosis or signs of ischemia. foot is warm with no swelling. Rt heel superficial wound healing well, pink base, dry. Right PT palpable, foot warm A/P POD#3 right iliac to femoral bypass, SFA angioplasty and 5th toe open amputation - continue aspirin and plavix - continue wound vac therapy (WCC team to replace today), local wound care to heel, abx per ID and offloading - he needs to be non weight bearing to the right foot with to heel ulcer and toe amputation, he also has left BKA We discussed dispo plan, pt is refusing to go to [facility]. He reports he has 24/ help at home and handicap accessibilities. We also discussed importance of non-weight bearing, diabetes control and close follow up. He reports he'd like to go into the wound care center 3x week vs having home health. Will defer to manager of school. He is ok for discharge from vascular surgery standpoint once arrangements made. He needs continued vac therapy with 3x week changes, weekly WCC follow ups and abx per ID. He will follow up with Dr. Gipson on 09/30/19 at 0900. PETRA GLORIA Sep 06, 2019 09:55
[2019-09-06 10:57] VITALS: BP 124/72
[2019-09-06] MEDS ORDERED: LIDOCAINE 1% PF 5 ML VIAL. INJ ONE (12:30)
--- NOTE | 2019-09-06 13:28 | RAD ---
Examination: PORTABLE CHEST 1V History: PICC placement Comparison/Correlation: 10/13/2018 portable chest x-ray exam Findings: Portable upright frontal view of the chest was obtained. Right-sided PICC terminates overlying the right atrium. No pneumothorax. Heart size and pulmonary vessels are normal. No infiltrate or pleural effusion. Bony structures are unremarkable. Impression: Right-sided PICC terminates overlying the right atrium. Electronically signed by: Jaguar Theodore MD (09/06/2019 1:25 PM) [facility]
--- NOTE | 2019-09-06 13:30 | RAD ---
CHEST AP ONLY Clinical Indication: PICC placement second attempt Comparison: 09/06/2019 Portable Chest X-ray Exam. Findings: Portable upright frontal view of the chest was obtained. Right-sided PICC terminates overlying the superior vena cava. Left basilar calcified lymph node present. The cardiomediastinal silhouette is normal. Lungs are clear. There is no pneumothorax. No pleural effusion is appreciated. No acute bone abnormality. IMPRESSION: No acute cardiopulmonary process. Interval partial retraction of the right-sided PICC. Electronically signed by: Jaguar Theodore MD (09/06/2019 1:27 PM) [facility]
--- NOTE | 2019-09-06 13:32 | RAD ---
CHEST AP ONLY Clinical Indication: PICC placement Comparison: 09/06/2019 Portable Chest X-ray Exam performed at 1259 PM. Findings: Portable upright frontal view of the chest was obtained. Right-sided PICC terminates at the superior cavoatrial junction and appears to have been advanced since the prior exam . The cardiomediastinal silhouette is normal. Lungs are clear. There is no pneumothorax. No pleural effusion is appreciated. No acute bone abnormality. IMPRESSION: No acute cardiopulmonary process. Mild advancement of the right-sided PICC in the interval. Electronically signed by: Jaguar Theodore MD (09/06/2019 1:29 PM) [facility]
--- NOTE | 2019-09-06 13:34 | RAD ---
CHEST AP ONLY Clinical Indication: PICC placement Comparison: 09/06/2019 abnormal chest x-ray exam performed at 1:03 PM. Findings: Portable upright frontal view of the chest was obtained. Right-sided PICC terminates at the superior cavoatrial junction and appears slightly retracted in the interval. The cardiomediastinal silhouette is normal. Lungs are clear. There is no pneumothorax. No pleural effusion is appreciated. No acute bone abnormality. IMPRESSION: No acute cardiopulmonary process. Slight retraction of the right-sided PICC in the interval suspected. Electronically signed by: Jaguar Theodore MD (09/06/2019 1:31 PM) [facility]
[2019-09-06] MEDS: VANCOMYCIN PER PHARMACY MC PRN (13:40)
[2019-09-06 15:00] VITALS: BP 122/69
--- NOTE | 2019-09-06 15:15 | NUR ---
SS following up with discharge planning. Pt transferred to 5th floor. Pt is from home and is currently on room air. PT/OT ordered. SS currently awaiting PT/OT evaluations. Discussed with FRIDA Mullins.
--- NOTE | 2019-09-06 17:11 | NUR ---
Wound Care: Patient seen per wound care. Patient is well known to us from the clinic and previous admissions. Patient s/p surgery on right lateral foot and has multiple other wounds, see wound assessment. All Dressings removed and wound cleansed, assessed, measured, pictured and redressed. Vac applied to right lateral foot at 125 mmHg continuous pressure. Right index finger dressed with honey alginate and bandaid, R 3rd toe dressed with iodoflex and telfa, right heel dressed with contact layer and foam dressing, posterior neck dressed with MEHREEN, and coccyx dressed with calazime. Ordered P500 bed and wedge, educated pt on PU prevention. WC will follow up on Friday for dressing changes.
[2019-09-06 19:00] VITALS: BP_SYST 116; BP_SYST 126; BP_DIAS 71; BP_DIAS 79
[2019-09-06 23:00] VITALS: BP 143/78
[2019-09-07 03:00] VITALS: BP 123/74
[2019-09-07] MEDS: oxyCODONE IR 5 MG TABLET PO PRN ×2 (05:48→15:15)
[2019-09-07] MEDS: PIPERACILLIN/TAZOBACTAM 3.375 GM in IV NORMAL SALINE 50ML 50 ML IV SCH (05:48)
[2019-09-07] MEDS: MORPHINE SULFATE 4 MG/ML VIAL. IV PRN ×2 (06:36→21:45)
[2019-09-07 07:00] VITALS: BP 143/74
[2019-09-07] MEDS: ELECTROLYTE (NON-ICU) PROTOCOL MC SCH (07:25)
[2019-09-07 08:20] LABS: VANC TR 15.5 mcg/mL (10.0-20.0)
--- NOTE | 2019-09-07 08:21 | PDOC ---
Provider Note Provider Note still low grade temp, glucose still > 200 despite 100 u insulin, will inc lantus to 50 bid and follow- still vanc/zosyn re mrsa and mult wounds EMANUEL FOSTER MD Sep 07, 2019 08:21
[2019-09-07] MEDS: INSULIN GLARGINE SYRINGE. SQ SCH ×3 (08:30→21:45)
[2019-09-07] MEDS: ASPIRIN ENTERIC COATED 81 MG TABLET.DR. PO SCH (09:10)
[2019-09-07] MEDS: LACTOBACILLUS RHAMNOSUS GG 1 CAPSULE. PO SCH ×2 (09:10→21:45)
[2019-09-07] MEDS: CLOPIDOGREL BISULFATE 75 MG TABLET PO SCH (09:10)
[2019-09-07] MEDS: MULTIVITAMIN with MINERAL TABLET. PO SCH (09:10)
[2019-09-07] MEDS: BACITRACIN TOPICAL OINT PACKET. TP SCH ×2 (09:10→23:45)
[2019-09-07] MEDS: INSULIN LISPRO 300 UNITS/3 ML VIAL. SQ SCH ×3 (09:20→17:00)
[2019-09-07] MEDS ORDERED: ERTAPENEM 1GM IVPB (GENERIC) 50 ML IV ONE (09:30)
--- NOTE | 2019-09-07 09:33 | PDOC ---
Infectious Disease Note Subjective Subjective feeling good ROS ROS no n/v/d/sob Vital Sign Vital Signs Vital Signs Date Time Temp Pulse Resp B/P (MAP) Pulse Ox O2 Delivery O2 Flow Rate FiO2 09/07/19 08:00 Room Air 09/07/19 07:00 98.4 108 18 143/74 (97) 95 98.4 09/06/19 22:30 10.0 Physical Exam PHYSICAL EXAM GENERAL: Lying down, alert, NAD HEENT: Right eye has mild cataract. Oral cavity, pharynx dry. NECK: Supple. LUNGS: Clear to auscultation. HEART: S1, S2. ABDOMEN: Soft, nontender, and nondistended with positive bowel sounds. : Huynh EXTREMITIES: necrotic wound right second finger. Dressing & wound vac right foot; prevena right groin. , wound looks much better SKIN: Warm to touch without signs of generalized rash. NEUROLOGIC: ALert, answers questions appropriately. PIV Labs Lab Laboratory Tests Test 09/06/19 13:31 09/06/19 16:31 09/06/19 21:17 09/07/19 07:25 Glucose (Fingerstick) 221 mg/dL (70-99) 301 mg/dL (70-99) 258 mg/dL (70-99) Vancomycin Level Trough 15.5 mcg/mL (10.0-20.0) Vancomycin Last Dose Date Unknown Vancomycin Last Dose Time Unknown Test 09/07/19 07:41 Glucose (Fingerstick) 249 mg/dL (70-99) Micro ANAEROBIC RES 1 PENDING AEROBIC CULT Final Preliminary report Final report AEROBIC RES 1 Final Staphylococcus aureus Comment 4+ Methicillin - resistant Staphylococcus aureus 4+ Based on resistance to oxacillin this isolate would be resistant to all currently available beta-lactam antimicrobial agents, with the exception of the newer cephalosporins with anti-MRSA activity, such as Ceftaroline This isolate does not demonstrate inducible clindamycin resistance in vitro by D test. AEROBIC RES 2 Final Mixed skin ricardo 4+ ANTIMICROBIAL SUSCEPTIBILITY Final Comment S = Susceptible; I = Intermediate; R = Resistant P = Positive; N = Negative MICS are expressed in micrograms per mL Antibiotic RSLT#1 RSLT#2 RSLT#3 RSLT#4 Ciprofloxacin R>=8 CONTINUED ON NEXT PAGE RUN DATE: 09/05/19 PAGE 2 RUN TIME: 076 [facility] [address] [facility] [place] [address] Rashi Crowe M.D., Painter Set SPEC: [id number] PATIENT: INO DONOHUE [id number] (Continued) Procedure Result ANTIMICROBIAL SUSCEPTIBILITY Final (continued) Clindamycin S<=0.25 Erythromycin R>=8 Gentamicin S<=0.5 Levofloxacin R>=8 Linezolid S =2 Oxacillin R>=4 Penicillin R>=0.5 Rifampin S<=0.5 Tetracycline S<=1 Trimethoprim/Sulfa S<=10 Vancomycin S =1 GRAM STAIN Final Final report GRAM STAIN RES 1 Final Comment No white blood cells seen. Objective Assessment Right foot fifth metatarsal wound down to bone with gangrene, exposed tendon and bone. s/p right fifth toe open ray amputation, 09/03 Staph aureus MRSA Right heel necrotic wound s/p debridement skin and subcutaneous tissue, 09/03 Right second toe necrotic ulcer s/p debridement of skin, 09/03 Right lower extremity peripheral arterial disease. s/p external iliac artery to distal common bifemoral artery bypass using PTFE graft SULFA ALLERGY but states he has been taking Bactrim. Right second finger open necrotic wound from burn injury. Diabetes. History of Clostridium difficile. History of methicillin-resistant Staphylococcus aureus, Klebsiella, E nterococcus, Citrobacter, and group B strep. Plan Plan of Care Vanc and Zosyn 09/01,,,, changed to iv Dapto and Invanz for d/c and out pt wkly cbc, bun/cr, sed rate and cpk f/u with me in 2 wks GAURI BECERRA MD Sep 07, 2019 09:33
[2019-09-07 11:00] VITALS: BP 137/68
[2019-09-07] MEDS: DAPTOmycin (GENERIC) IVPB 450 MG in IV NORMAL SALINE 50ML 50 ML IV SCH (12:59)
--- NOTE | 2019-09-07 14:07 | PATHOLOGY ---
[facility] Accession Number: [id number] . 01 Material submitted: . toe - RIGHT FIFTH TOE. Modifiers: right, fifth . 01 Clinical history: . R foot non-healing wound . 02 Diagnosis: Toe "right fifth toe", amputation: - Ulcer with necrotic acute inflammatory exudate extending deeply into the underlying bone with acute osteomyelitis. - The inked surgical resection margins appear viable with no obvious acute inflammation. (SHA/db; 09/07/2019) LBQ 09/07/2019 1253 Local . 02 Electronically signed: . Akhil Marley MD, Pathologist NPI- [id number] . 01 Gross description: . The specimen is received in formalin, labeled "Zhang Augustin, right fifth toe". Received is an amputated digit measuring 8.7 x 4.2 x 2.8 cm in greatest dimensions. The bone margin is jagged in appearance. The bone and soft tissue margins are inked black. The nail is present displaying a pale goodson and grossly unremarkable appearance. The dorsal aspect of the specimen displays a poorly circumscribed, irregular in contour, necrotic-appearing and goodson-brown lesion measuring 2.5 x 2.7 cm, which is 0.4 cm from the closest skin margin. A full-thickness longitudinal cross-section is submitted from proximal to distal aspects in cassettes A1 through A4, following decalcification. (CAA; 09/06/2019) QAC/QAC 09/06/2019 0912 Local . 02 Pathologist provided ICD-10: M86.171, L97.519 . 02 CPT . 581367, 141113 Specimen Comment: A courtesy copy of this report has been sent to Specimen Comment: [phone], . Specimen Comment: Report sent to / DR MOSHER Performed at: 01 [facility] [address], [place], [place] [id number] MD Donnell Arias MD Phone: [phone] Performed at: 02 [facility] [address] [place], [place] [id number] MD Rashi Crowe MD Phone: [phone]
[2019-09-07 15:00] VITALS: BP 118/70
--- NOTE | 2019-09-07 15:51 | NUR ---
FRIDA following pt. FRIDA phoned and faxed orders to [facility]. Pt states he has done home infusion before and refusing home health RN services. Pt wants to come to wound clinic three times a week to do wound vac dressing changes and complete his cbc lab work here. Pt states his friend at home can help him with the rest at home and declined HH. Plan 1. SW spoke with wound care and they will work on his schedule, also awaiting on approval for wound vac from [facility]. 2. Pt is notified of his insurance coverage and responsibility ($504/day until deductible is met and $201/day until out of pocket is met). Pt agreeable with plans. 3. Pt is also provided bedside teach by a nurse from [facility] infusion. 4. FRIDA phoned and faxed orders to laboratory here and pt is able to do his weekly cbc here. Pt is able to dc home once wound vac is approved. Discussed with RN.
[2019-09-07 19:00] VITALS: BP 150/87
--- NOTE | 2019-09-07 21:45 | NUR ---
Non-administered 2099 Lantus due to already having co-signed. was still showing up on JAN
[2019-09-07 23:00] VITALS: BP 137/70
[2019-09-08 03:00] VITALS: BP 138/72
[2019-09-08] MEDS: oxyCODONE IR 5 MG TABLET PO PRN (04:04)
[2019-09-08 07:00] VITALS: BP 137/78
[2019-09-08] MEDS: INSULIN GLARGINE SYRINGE. SQ SCH (09:00)
--- NOTE | 2019-09-08 09:06 | PDOC ---
Provider Note Provider Note Vascular S: Pt sleeping this am, elects to not be woken up. AF VSS, slightly tachycardic awake and alert, INAD right foot wound vac in place. A/P POD#5 right iliac to femoral bypass, SFA angioplasty and 5th toe open amputation - continue aspirin and plavix - continue wound vac therapy, local wound care to heel, abx per ID and offloading - he needs to be non weight bearing to the right foot with heel ulcer and toe amputation, he also has left BKA - Prevena can come off if causing problems, battery will only last about 2 more days otherwise DC today once vac approved. He is ok for discharge from vascular surgery standpoint once arrangements made. He needs continued vac therapy with 3x week changes, weekly WCC follow ups and abx per ID. He will follow up with Dr. Gipson on 09/30/19 at 0900. PETRA GLORIA Sep 08, 2019 09:06
--- NOTE | 2019-09-08 09:10 | NUR ---
AM meds and BG: Pt was sleeping, requested we come back in a little bit to do meds. Pt is aware he can not have breakfast until his fingerstick is done. Pt agreeable. Will continue to monitor.
--- NOTE | 2019-09-08 09:34 | PDOC ---
Infectious Disease Note Subjective Subjective feeling good ROS ROS no n/v/d/sob Vital Sign Vital Signs Vital Signs Date Time Temp Pulse Resp B/P (MAP) Pulse Ox O2 Delivery O2 Flow Rate FiO2 09/08/19 07:00 97.8 94 18 137/78 (97) 96 Room Air 97.8 Physical Exam PHYSICAL EXAM GENERAL: Lying down, alert, NAD HEENT: Right eye has mild cataract. Oral cavity, pharynx dry. NECK: Supple. LUNGS: Clear to auscultation. HEART: S1, S2. ABDOMEN: Soft, nontender, and nondistended with positive bowel sounds. : [place] EXTREMITIES: necrotic wound right second finger. Dressing & wound vac right foot; prevena right groin. , wound looks much better SKIN: Warm to touch without signs of generalized rash. NEUROLOGIC: ALert, answers questions appropriately. PIV Labs Lab Laboratory Tests Test 09/07/19 11:29 09/07/19 14:40 09/07/19 16:47 09/07/19 20:55 Glucose (Fingerstick) 297 mg/dL (70-99) 185 mg/dL (70-99) 161 mg/dL (70-99) 152 mg/dL (70-99) Micro ANAEROBIC RES 1 PENDING AEROBIC CULT Final Preliminary report Final report AEROBIC RES 1 Final Staphylococcus aureus Comment 4+ Methicillin - resistant Staphylococcus aureus 4+ Based on resistance to oxacillin this isolate would be resistant to all currently available beta-lactam antimicrobial agents, with the exception of the newer cephalosporins with anti-MRSA activity, such as Ceftaroline This isolate does not demonstrate inducible clindamycin resistance in vitro by D test. AEROBIC RES 2 Final Mixed skin ricardo 4+ ANTIMICROBIAL SUSCEPTIBILITY Final Comment S = Susceptible; I = Intermediate; R = Resistant P = Positive; N = Negative MICS are expressed in micrograms per mL Antibiotic RSLT#1 RSLT#2 RSLT#3 RSLT#4 Ciprofloxacin R>=8 CONTINUED ON NEXT PAGE RUN DATE: 09/05/19 PAGE 2 RUN TIME: 18[facility] [address] [place] [address] Rashi Crowe M.D., Power Shovel Operator SPEC: [id number] PATIENT: INO DONOHUE [id number] (Continued) Procedure Result ANTIMICROBIAL SUSCEPTIBILITY Final (continued) Clindamycin S<=0.25 Erythromycin R>=8 Gentamicin S<=0.5 Levofloxacin R>=8 Linezolid S =2 Oxacillin R>=4 Penicillin R>=0.5 Rifampin S<=0.5 Tetracycline S<=1 Trimethoprim/Sulfa S<=10 Vancomycin S =1 GRAM STAIN Final Final report GRAM STAIN RES 1 Final Comment No white blood cells seen. Objective Assessment Right foot fifth metatarsal wound down to bone with gangrene, exposed tendon and bone. s/p right fifth toe open ray amputation, 09/03 Staph aureus MRSA Right heel necrotic wound s/p debridement skin and subcutaneous tissue, 09/03 Right second toe necrotic ulcer s/p debridement of skin, 09/03 Right lower extremity peripheral arterial disease. s/p external iliac artery to distal common bifemoral artery bypass using PTFE graft SULFA ALLERGY but states he has been taking Bactrim. Right second finger open necrotic wound from burn injury. Diabetes. History of Clostridium difficile. History of methicillin-resistant Staphylococcus aureus, Klebsiella, Enterococcus, Citrobacter, and group B strep. Plan Plan of Care iv Dapto and Invanz for d/c and out pt wkly cbc, bun/cr, sed rate and cpk f/u with me in 2 wks GAURI BECERRA MD Sep 08, 2019 09:34
[2019-09-08] MEDS ORDERED: ERTAPENEM 1GM IVPB (GENERIC) 50 ML IV ONE (10:00)
[2019-09-08] MEDS: DAPTOmycin (GENERIC) IVPB 450 MG in IV NORMAL SALINE 50ML 50 ML IV SCH (10:00)
[2019-09-08] MEDS: CLOPIDOGREL BISULFATE 75 MG TABLET PO SCH (10:14)
[2019-09-08] MEDS: BACITRACIN TOPICAL OINT PACKET. TP SCH (10:14)
[2019-09-08] MEDS: LACTOBACILLUS RHAMNOSUS GG 1 CAPSULE. PO SCH (10:14)
[2019-09-08] MEDS: MULTIVITAMIN with MINERAL TABLET. PO SCH (10:14)
[2019-09-08] MEDS: ASPIRIN ENTERIC COATED 81 MG TABLET.DR. PO SCH (10:14)
[2019-09-08] MEDS: INSULIN LISPRO 300 UNITS/3 ML VIAL. SQ SCH ×2 (10:39→12:00)
--- NOTE | 2019-09-08 11:00 | NUR ---
wound care patient seen per wound care. patients home wound vac switched over at this time. patient has an appointment in the wound clinic tomorrow at 1015 09/09/2019, and wound care will change the wound vac and all dressings at this time. patient agreed and signed POD paper. notified INGIRD Roche about the POC.
[2019-09-08 11:06] VITALS: BP 128/72
--- NOTE | 2019-09-08 11:22 | NUR ---
[facility] following pt. Spoke with Wound Care and pt's wound vac is approved. Pt is scheduled to come to wound clinic tomorrow for Vac change and will have MWF schedule. Pt will f/u his labs work here and [facility] has already contacted pt regarding medication delivery. Pt will get his daily IV abx dose for today and will dc home with OP wound clinic f/u. Pt agreeable with plans. Discussed with RN.
[2019-09-08] MEDS ORDERED: ASPI-612 PO (12:25)
[2019-09-08] MEDS ORDERED: ERTA1VIA4 IJ (12:25)
[2019-09-08] MEDS ORDERED: CLOP75TA PO (12:25)
--- NOTE | 2019-09-08 16:09 | NUR ---
Discharge Note: INO DONOHUE [address] Discharge instructions and discharge home medications reviewed with Patient and a copy given. All questions have been answered and understanding verbalized. The following instructions and handouts were given: patient visit report, medication information, education Discontinued lines and drains: PICC line in place upon d/c due to IV abx at home. Education given to patient and his father re: PICC line care. Pt's father did not have any question re: admin of abx, informed him to call if he had questions. Patient discharged to home with self care via private vehicle. Patient left unit awake, in stable condition with youth care professional. Pt had all belongings at discharge.
--- NOTE | 2019-09-08 20:48 | DS ---
DATE OF DISCHARGE: 09/08/2019 PRIMARY DIAGNOSES: 1. Diabetic foot ulcers with right foot fifth metatarsal wound down to bone with gangrene exposed tendon above, status post right fifth toe open ray amputation on 09/03/2019. Methicillin-resistant Staphylococcus aureus infection of the wound. 2. Right heel necrotic wound with debridement of skin and subcutaneous tissue, 09/03/2019. 3. Right second toe necrotic ulcer, status post debridement of skin, 09/03/2019. 4. Right lower extremity peripheral artery disease with external iliac artery, distal common femoral artery bypass using a PTFE graft. 5. Diabetes. 6. Right second finger open necrotic wound from burn injury. 7. Multiple subcutaneous abscesses on torso and posterior neck. CHIEF COMPLAINT AND HISTORY OF PRESENT ILLNESS: This 54-year-old poorly compliant diabetic with multiple diabetic complications was admitted on the after being instructed from the wound care to be admitted on the . Went home for another couple of days to get his affairs in order because of his right foot. SUMMARY OF STAY: The patient was admitted. He was treated with IV antibiotics throughout the stay and had a PICC line placed at discharge for continued IV ertapenem and daptomycin as an outpatient. Saw Vascular Surgery during the stay. He did the bypass as well as the debridements. He had a wound VAC for ongoing wound care with followup scheduled at the [facility] at the time of discharge. Was unhappy during the stay with the amount of food that he was getting and ran some higher sugars off and on throughout the stay, mainly due to the dietary indiscretion, which he refused to participate any further in. He was felt safe for discharge with nonweightbearing on the day of discharge and this was accomplished. DISPOSITION: The patient is discharged home. ADA diet. ACTIVITY: With no weightbearing on the right foot. He does have a left kcvaz-[id number]-[id number] amputation. DISCHARGE MEDICATIONS: Listed on the med rec and have been addressed. I will see him in a week and follow up. PAT MOSHER MD DR: MEHRAN/denise JOB#: [id number] / [id number]
== END 2019-09-08 16:10 | disposition home or self-care (01) | DRG 270 ==
LOC: 5 SOUTH 13:06 → 1 WEST ICU 09-03 12:28 → 2 SOUTH 09-03 19:30 → 5 SOUTH 09-06 15:22
PROVIDERS: ADMIT Family Medicine; ATTEND Family Medicine
PROC: B4101ZZ Fluoroscopy of Abdominal Aorta using Low Osmolar Contrast (ICD-10-PCS; 2019-09-02)
PROC: B41C1ZZ Fluoroscopy of Pelvic Arteries using Low Osmolar Contrast (ICD-10-PCS; 2019-09-02)
PROC: 0Y6X0Z0 Detachment at Right 5th Toe, Complete, Open Approach (ICD-10-PCS; 2019-09-03)
PROC: 041H0JH Bypass Right External Iliac Artery to Right Femoral Artery with Synthetic Substitute, Open Approach (ICD-10-PCS; 2019-09-03)
PROC: B41F1ZZ Fluoroscopy of Right Lower Extremity Arteries using Low Osmolar Contrast (ICD-10-PCS; 2019-09-03)
PROC: 04CH0ZZ Extirpation of Matter from Right External Iliac Artery, Open Approach (ICD-10-PCS; principal; 2019-09-03 07:30)
PROC: 0JBQ0ZZ Excision of Right Foot Subcutaneous Tissue and Fascia, Open Approach (ICD-10-PCS; 2019-09-03 07:30)
PROC: 047K3Z1 Dilation of Right Femoral Artery using Drug-Coated Balloon, Percutaneous Approach (ICD-10-PCS; 2019-09-03 07:30)
PROC: 02H633Z Insertion of Infusion Device into Right Atrium, Percutaneous Approach (ICD-10-PCS; 2019-09-06)
DX: E11.52 Type 2 diabetes mellitus with diabetic peripheral angiopathy with gangrene (principal); E43 Unspecified severe protein-calorie malnutrition; L97.409 Non-pressure chronic ulcer of unspecified heel and midfoot with unspecified severity; Z16.11 Resistance to penicillins; I70.201 Unspecified atherosclerosis of native arteries of extremities, right leg; B95.62 Methicillin resistant Staphylococcus aureus infection as the cause of diseases classified elsewhere; E11.319 Type 2 diabetes mellitus with unspecified diabetic retinopathy without macular edema; E11.40 Type 2 diabetes mellitus with diabetic neuropathy, unspecified; E11.621 Type 2 diabetes mellitus with foot ulcer; E11.628 Type 2 diabetes mellitus with other skin complications; E78.5 Hyperlipidemia, unspecified; F17.200 Nicotine dependence, unspecified, uncomplicated; I10 Essential (primary) hypertension; I25.10 Atherosclerotic heart disease of native coronary artery without angina pectoris; L97.519 Non-pressure chronic ulcer of other part of right foot with unspecified severity; Z79.4 Long term (current) use of insulin; Z79.82 Long term (current) use of aspirin; Z83.3 Family history of diabetes mellitus; Z86.14 Personal history of Methicillin resistant Staphylococcus aureus infection; Z88.2 Allergy status to sulfonamides; Z89.512 Acquired absence of left leg below knee; Z91.19 Patient's noncompliance with other medical treatment and regimen; F32.9 Major depressive disorder, single episode, unspecified; F41.9 Anxiety disorder, unspecified; G89.29 Other chronic pain; M19.90 Unspecified osteoarthritis, unspecified site; Z88.3 Allergy status to other anti-infective agents
CPT/HCPCS: 36415; 36569; 71045; 75625; 75710; 76000; 76937; 80048; 80053; 80202; 82565; 82962; 83735; 84100; 85025; 85610; 85651; 87071; 87075; 87186; 88305; 88311; 90471; 90686; 93880; 99152; 99153; A4215; C1725; C1758; C1760; C1768; C1769; C1892; C1894; C2623; G0269; J0690; J0878; J1100; J1335; J1644; J1815; J2001; J2250; J2270; J2405; J2440; J2543; J2704; J2710; J3010; J3370; J3490; J7030; J7040; J7050; J7120; Q9967; A4461; G0378

== ENCOUNTER 2019-10-09 13:33 | Emergency (ER) | payer OTHER ==
[~2019-10-09] VITALS: Ht 177.8 cm; Wt 72.6 kg
[~2019-10-09 13:33] MED LIST changes: +ASPI-612 PO; +CLOP75TA PO; +ERTA1VIA4 IJ
[2019-10-09 14:15] VITALS: BP 155/86
--- NOTE | 2019-10-09 14:44 | PHYS DOC ---
Past Medical History Past Medical History: Anxiety, Diabetes-Type II, Hypertension, Other Additional Past Medical Histor: MRSA, STAPH, BLIND R EYE Past Surgical History: Other Additional Past Surgical Histo: BACK, L. HAND, VASCULAR SURGERY, R. GREAT TOE AMPUTATION, R EYE Additional Information: "SINCE I WAS 11" Alcohol Use: None Drug Use: None Adult General Chief Complaint Chief Complaint: OTHER COMPLAINTS HPI HPI Patient is a 54 year old male who presents with currently on antibiotics per PICC line for diabetic wound. Patient states he went to get himself antibiotic this morning and he could not get the PICC line flushed. Patient states he does have the PICC line we dressed by the PICC nurse recently. Review of Systems Review of Systems Cardiovascular: PICC Line occlusion All other systems were reviewed and found to be within normal limits, except as documented in this note. Allergies Allergies Allergies Coded Allergies Type Severity Reaction Last Updated Verified sulfamethoxazole Allergy Intermediate Rash 04/27/19 Yes trimethoprim Allergy Intermediate Rash 04/27/19 Yes I S O L A T I O N *CONTACT* Allergy Unknown 04/27/19 Yes Physical Exam Physical Exam Constitutional: Well developed, well nourished, no acute distress, non-toxic appearance. [] HENT: Normocephalic, atraumatic, bilateral external ears normal, oropharynx moist, no oral exudates, nose normal. [] Eyes: PERRLA, EOMI, conjunctiva normal, no discharge. [] Neck: Normal range of motion, no tenderness, supple, no stridor. [] Cardiovascular:Heart rate regular rhythm, no murmur [] Lungs & Thorax: Bilateral breath sounds clear to auscultation [] Abdomen: Bowel sounds normal, soft, no tenderness, no masses, no pulsatile masses. [] Skin: Warm, dry, no erythema, no rash. [] Back: No tenderness, no CVA tenderness. [] Extremities: No tenderness, no cyanosis, no clubbing, ROM intact, no edema. [] Neurologic: Alert and oriented X 3, normal motor function, normal sensory function, no focal deficits noted. [] Psychologic: Affect normal, judgement normal, mood normal. Normal physical exam[] Current Patient Data Vital Signs Vital Signs Date Time Temp Pulse Resp B/P (MAP) Pulse Ox O2 Delivery O2 Flow Rate FiO2 10/09/19 13:41 98.2 117 16 167/87 (113) 100 Room Air 98.2 EKG EKG [] Radiology/Procedures Radiology/Procedures [] Course & Med Decision Making Course & Med Decision Making Patient's PICC line upon examination was kinked. Patient's PICC line is redressed and is flushing. Patient has no signs of infection around the PICC line. Patient has no other complaints. Vital signs within normal limits. Dragon Disclaimer Dragon Disclaimer This electronic medical record was generated, in whole or in part, using a voice recognition dictation system. Departure Departure Impression: Primary Impression: Occluded PICC line Disposition: HOME, SELF-CARE Condition: STABLE Referrals: PAT MOSHER MD (PCP) Patient Instructions: PICC Home Guide Additional Instructions: Follow up with primary care provider if needed. Problem Qualifiers Primary Impression: Occluded PICC line Encounter type: initial encounter Qualified Codes: T82.898A - Other specified complication of vascular prosthetic devices, implants and grafts, i nitial encounter JUVE YAN SUBMARINE WORKER Oct 09, 2019 14:44
== END 2019-10-09 14:51 | disposition home or self-care (01) ==
LOC: ER 13:33
DX: T82.898A Other specified complication of vascular prosthetic devices, implants and grafts, initial encounter (principal); I10 Essential (primary) hypertension; E11.9 Type 2 diabetes mellitus without complications; F41.9 Anxiety disorder, unspecified; Z88.1 Allergy status to other antibiotic agents; Z88.2 Allergy status to sulfonamides; Z91.041 Radiographic dye allergy status; Y83.8 Other surgical procedures as the cause of abnormal reaction of the patient, or of later complication, without mention of misadventure at the time of the procedure
CPT/HCPCS: 99285-25

== ENCOUNTER 2020-01-05 12:18 | Inpatient (IN) | payer MEDICARE ==
[~2020-01-05] VITALS: Ht 177.8 cm; Wt 66.4 kg
[~2020-01-05 12:18] MED LIST changes: +DOXY100C2 PO; +LINE600T12 PO
--- NOTE | 2020-01-05 12:30 | NUR ---
Wound Care Pt seen in the [facility] for his weekly wound visit. Pt stated he hasn't been feeling well for a few weeks and has lost more weight than when we previously had seen him. Pt has been receiving treatment for multiple 2nd and 3rd degree wilson to hands and arms from sleeping against a radiator, as well as multiple abscesses on head and neck. Pt presented to clinic with additional draining abscesses to R forearm, R palm and finger, and R Parietal area, as well as periorbital edema and cellulitis, and abscess in R nare. All wounds cleaned, measured and photographed, FSBS checked, with result of 530. Dr. Ceballos assessed, debrided L hand wound, culture obtained from R forearm wound, and recommended hospital admission for infection, spoke with Dr. Lima who agreed. Pt hesitant, stating he needed to "go home and tie up some loose ends" and would be back in a few hours. Dr. Ceballos declined, and stated he was too sick to go home. Pt instead left the clinic, spent at least 15-20 minutes in his car in the parking lot with his friend, then returned for admission. Dressings applied and recommended: bilateral hands-Medihoney, Xeroform, gauze and kerlix, every 3 days. R forearm abscess: pack with 1/4" Iodoform packing strip, change daily. Head and neck ulcerations: [place] with Betadine, COMPUTER APPLICATIONS INSTRUCTOR, daily. Clinic photos taken to place in hospital chart, will continue to follow for wound care needs.
[2020-01-05 12:35] VITALS: BP 131/72
--- NOTE | 2020-01-05 12:36 | PDOC ---
Progress Note-Wound Care SUBJECTIVE Mr. Augustin came to his scheduled wound care f/u visit today. He states he hasn't felt well for 2 weeks with decreased appetite: "All I've eaten in the last 2 weeks was a corn dog and last night I had a steak." He states he has lost several pounds.He denies fever, no N/V and no bowel changes except no BM for a week: "I haven't been eating anything." OBJECTIVE Vital Signs BP 153/79, HR 118, FSBS 503. Physical Exam: Cachectic male awake and alert. No apparent distress. Ambulates independently with a limp. The top half of his face is red and warm, his right eye has periorbital edema. There is a purulent blister on his scalp. He has a new 1.8 cm abscess on his right forearm, and he has wounds on his fingers and hands in various degrees of healing. There was purulent discharge from his right index finger which is also red, hot and swollen. ASSESSMENT Periorbital cellulitis likely related to his diffuse staph infections and infected wilson. At his last admission his drug screen was + for methamphetamine even though when I ask he consistently denies illicit drug use in the last several months. Today he wanted to go home then return for admission. I told him that would be against medical advice. He left our clinic and spent several (10- 15) with his brother in his car and then returned to let us transport him to the ED. I am suspicious that he may have been ingesting an illicit substance so will check a drug screen today. Problems: (1) Cellulitis Qualifiers: Qualified Codes: L03.213 - Periorbital cellulitis (2) Abscess of right arm ROS ROS: Denies fever, + loss of appetite, no N/V, no bowel changes except no BM in 1 [address] with Dr. Lima who agreed to direct admit. CBC with diff, ESR, serum drug screen, CMP. Vanco x 1 IV, consult ID. BALAJI RODRIGUEZ MD Jan 05, 2020 12:35
[2020-01-05] MEDS ORDERED: VANCOMYCIN 1.75 GM in IV NORMAL SALINE 500ML BAG 500 ML IV ONE (14:00)
--- NOTE | 2020-01-05 14:55 | NUR ---
Wounds: Per wound care, wounds have been measured and photographed. WC recommendations sent w/ pt at admit, placed in pt's room.
[2020-01-05 15:00] VITALS: BP 136/72
--- NOTE | 2020-01-05 16:21 | NUR ---
Left vm x2 with Dr. Lima's ofc requesting admit orders. Will continue to monitor pt.
[2020-01-05] MEDS ORDERED: C.DIFF MED SCREEN BY RX. MC ONE (17:30)
[2020-01-05] MEDS ORDERED: INSULIN LISPRO 300 UNITS/3 ML VIAL. SQ SCH (17:30)
[2020-01-05 17:55] LABS: BASO # 0.1 x10^3/uL (0.0-0.2); BASO % 0 % (0-3); EOS % 0 % (0-3); HEMATOCRIT 30.3 % (39.0-53.0); HEMOGLOBIN 9.6 g/dL (13.0-17.5); LYMPH # 0.7 x10^3/uL (1.0-4.8); LYMPH % 3 % (24-48); MEAN CORPUSCULAR HEMOGLOBIN 27 pg (25-35); MEAN CORPUSCULAR HGB CONC 32 g/dL (31-37); MEAN CORPUSCULAR VOLUME 86 fL (79-100); MONO % 5 % (0-9); NEUT # 19.4 x10^3/uL (1.8-7.7); NEUT % 92 % (31-73); PLATELET COUNT 518 x10^3/uL (140-400); RED BLOOD COUNT 3.52 x10^6/uL (4.30-5.70); RED CELL DISTRIBUTION WIDTH 15.5 % (11.5-14.5); WHITE BLOOD COUNT 21.1 x10^3/uL (4.0-11.0)
[2020-01-05 18:14] LABS: AMPHETAMINE/METHAMPHETAMINE POS (NEG); BARBITURATES NEG (NEG); BENZODIAZEPINES NEG (NEG); CANNABINOIDS POS (NEG); COCAINE NEG (NEG); METHADONE NEG (NEG); OPIATES NEG (NEG); PHENCYCLIDINE NEG (NEG)
[2020-01-05 18:22] LABS: ALBUMIN 1.7 g/dL (3.4-5.0); ALBUMIN/GLOBULIN RATIO 0.3 (1.0-1.7); CALCIUM 8.7 mg/dL (8.5-10.1); GFR 78.5; TOTAL BILIRUBIN 0.6 mg/dL (0.2-1.0); TOTAL PROTEIN 7.2 g/dL (6.4-8.2)
--- NOTE | 2020-01-05 18:43 | NUR ---
Eye drops: informed pt we do not carry eye drops, asked him to have someone from home bring them to the hospital. Pt agreed.
[2020-01-05] MEDS: PIPERACILLIN/TAZOBACTAM 3.375 GM in IV NORMAL SALINE 50ML 50 ML IV SCH (18:52)
[2020-01-05 19:00] VITALS: BP 136/66
[2020-01-05] MEDS: CENEGERMIN BKBJ OS SCH ×2 (19:00→22:00)
[2020-01-05] MEDS: VANCOMYCIN PER PHARMACY MC PRN (19:11)
--- NOTE | 2020-01-05 19:18 | NUR ---
Pharmacy Vancomycin Dosing Note S:Consulted to monitor and dose vancomycin started 01/05/20. O:INO DONOHUE is a 54 year old M with Abscess Cellulitis . Height: 5 feet, 10 inches Weight: 65.9 kg [place] Body Weight: 73.00 Adjusted Body Weight: 70.16 Dosing Weight: Actual Other Antibiotics: Zosyn 3.375gm IV q6hrs LABS: Last BUN: 20 Last Creatinine: 1.0 Creatinine Clearance: 80.5 mL/min Last WBC: 21.1 Last Procalcitonin: Tmax (past 24 hours): 98.4 Microbiology: I/O: Drug Levels: Last level: on at Last dose given 01/05/20 at 1516 Vancomycin Dosing: Loading Dose: 1750 mg x1 Dosing Weight: Actual Target Trough: 10-20 A: Based on weight and est. CrCl: P: 1. Vancomycin 1750mg IVPB, followed by Vancomycin 1000 mg IV q12h. 2. Follow up Trough level on 01/07/20 at 0230. 3. Pharmacy will continue to monitor, follow and adjust therapy as needed. Harvey Rajan, [facility], 01/05/20 1918
[2020-01-05 19:54] LABS: % BANDS 31 % (0-9); % LYMPHS 1 % (24-48); % MONOS 2 % (0-10); % SEGS 66 % (35-66)
[2020-01-05 19:55] LABS: PLT ESTIMATE INCREASED (ADEQUATE); TOXIC GRANULATION SLIGHT
[2020-01-05] MEDS: oxyCODONE IR 5 MG TABLET PO PRN (20:08)
[2020-01-05] MEDS ORDERED: INSULIN GLARGINE SYRINGE. SQ SCH ×2 (21:00→22:06)
[2020-01-05] MEDS: INSULIN GLARGINE SYRINGE. SQ SCH (22:49)
[2020-01-05 23:00] VITALS: BP 141/79
[2020-01-06] MEDS: PIPERACILLIN/TAZOBACTAM 3.375 GM in IV NORMAL SALINE 50ML 50 ML IV SCH ×4 (00:37→18:10)
[2020-01-06] MEDS: oxyCODONE IR 5 MG TABLET PO PRN ×4 (00:38→23:42)
[2020-01-06 03:00] VITALS: BP 128/77
[2020-01-06] MEDS: VANCOMYCIN 1 GM in IV NORMAL SALINE 250ML 250 ML IV SCH ×2 (03:30→15:32)
[2020-01-06 05:40] LABS: BASO # 0.1 x10^3/uL (0.0-0.2); BASO % 0 % (0-3); EOS # 0.1 x10^3/uL (0.0-0.7); EOS % 0 % (0-3); HEMATOCRIT 30.3 % (39.0-53.0); HEMOGLOBIN 9.8 g/dL (13.0-17.5); LYMPH % 4 % (24-48); MEAN CORPUSCULAR HEMOGLOBIN 28 pg (25-35); MEAN CORPUSCULAR HGB CONC 32 g/dL (31-37); MEAN CORPUSCULAR VOLUME 85 fL (79-100); MONO # 1.1 x10^3/uL (0.0-1.1); MONO % 5 % (0-9); NEUT # 19.7 x10^3/uL (1.8-7.7); NEUT % 90 % (31-73); PLATELET COUNT 527 x10^3/uL (140-400); RED BLOOD COUNT 3.55 x10^6/uL (4.30-5.70); RED CELL DISTRIBUTION WIDTH 15.4 % (11.5-14.5); WHITE BLOOD COUNT 21.9 x10^3/uL (4.0-11.0)
[2020-01-06 06:03] LABS: ALBUMIN 1.5 g/dL (3.4-5.0); ALBUMIN/GLOBULIN RATIO 0.3 (1.0-1.7); CALCIUM 8.9 mg/dL (8.5-10.1); CREATININE 0.8 mg/dL (0.7-1.3); GFR 101.5; POTASSIUM 4.3 mmol/L (3.5-5.1); TOTAL BILIRUBIN 0.4 mg/dL (0.2-1.0); TOTAL PROTEIN 7.4 g/dL (6.4-8.2)
[2020-01-06 07:00] VITALS: BP 129/66
[2020-01-06] MEDS: CENEGERMIN BKBJ OS SCH ×6 (07:00→22:00)
--- NOTE | 2020-01-06 07:48 | PDOC ---
Infectious Disease Note Subjective Subjective Known to service see consult not 11/24/19 and last progress note 11/30/19 Admitted from wound care with noncompliance and multiple wounds. No appetite despite available food. Finished zyvox but has not been on any other abx Problems started 2 plus weeks ago. Bumped right eye on wheel chair. NO F?C/S/N/V/D/SOA/dysuria. + Flatus. Has pain in wounds ROS ROS o/w neg Vital Sign Vital Signs Vital Signs Date Time Temp Pulse Resp B/P (MAP) Pulse Ox O2 Delivery O2 Flow Rate FiO2 01/06/20 06:09 20 91 Room Air 01/06/20 03:00 106 128/77 (94) 01/05/20 23:00 98.1 98.1 Physical Exam PHYSICAL EXAM GENERAL: Lying down, alert, NAD but a little tired appearing HEENT: Right eye mild cataract with some mild purulent drainage.No gross swelling, Oral cavity clear, dentures NECK: Supple, LUNGS: Clear bilaterally. HEART: S1, S2. ABDOMEN: Soft, nontender, positive bowel sounds. EXTREMITIES: Left below-knee amputation stump is well-healed, Jacob hands dressed Asked if i would look at the pictures. DERMATOLOGY: Multiple sores, boils mainly over the posterior scalp and superior scalp areas, NEUROLOGIC: Alert, oriented x 3, grossly nonfocal. Labs Lab Laboratory Tests Test 01/05/20 14:10 01/05/20 17:50 01/05/20 21:14 01/06/20 03:45 White Blood Count 21.1 x10^3/uL (4.0-11.0) 21.9 x10^3/uL (4.0-11.0) Red Blood Count 3.52 x10^6/uL (4.30-5.70) 3.55 x10^6/uL (4.30-5.70) Hemoglobin 9.6 g/dL (13.0-17.5) 9.8 g/dL (13.0-17.5) Hematocrit 30.3 % (39.0-53.0) 30.3 % (39.0-53.0) Mean Corpuscular Volume 86 fL (79-100) 85 fL (79-100) Mean Corpuscular Hemoglobin 27 pg (25-35) 28 pg (25-35) Mean Corpuscular Hemoglobin Concent 32 g/dL (31-37) 32 g/dL (31-37) Red Cell Distribution Width 15.5 % (11.5-14.5) 15.4 % (11.5-14.5) Platelet Count 518 x10^3/uL (140-400) 527 x10^3/uL (140-400) Neutrophils (%) (Auto) 92 % (31-73) 90 % (31-73) Lymphocytes (%) (Auto) 3 % (24-48) 4 % (24-48) Monocytes (%) (Auto) 5 % (0-9) 5 % (0-9) Eosinophils (%) (Auto) 0 % (0-3) 0 % (0-3) Basophils (%) (Auto) 0 % (0-3) 0 % (0-3) Neutrophils # (Auto) 19.4 x10^3/uL (1.8-7.7) 19.7 x10^3/uL (1.8-7.7) Lymphocytes # (Auto) 0.7 x10^3/uL (1.0-4.8) 1.0 x10^3/uL (1.0-4.8) Monocytes # (Auto) 1.0 x10^3/uL (0.0-1.1) 1.1 x10^3/uL (0.0-1.1) Eosinophils # (Auto) 0.0 x10^3/uL (0.0-0.7) 0.1 x10^3/uL (0.0-0.7) Basophils # (Auto) 0.1 x10^3/uL (0.0-0.2) 0.1 x10^3/uL (0.0-0.2) Segmented Neutrophils % 66 % (35-66) Band Neutrophils % 31 % (0-9) Lymphocytes % 1 % (24-48) Monocytes % 2 % (0-10) Toxic Granulation Slight Platelet Estimate Increased (ADEQUATE) Large Platelets Few Sodium Level 123 mmol/L (136-145) 130 mmol/L (136-145) Potassium Level 5.0 mmol/L (3.5-5.1) 4.3 mmol/L (3.5-5.1) Chloride Level 87 mmol/L (98-107) 94 mmol/L (98-107) Carbon Dioxide Level 29 mmol/L (21-32) 30 mmol/L (21-32) Anion Gap 7 (6-14) 6 (6-14) Blood Urea Nitrogen 20 mg/dL (8-26) 18 mg/dL (8-26) Creatinine 1.0 mg/dL (0.7-1.3) 0.8 mg/dL (0.7-1.3) Estimated GFR (Cockcroft-Gault) 78.5 101.5 BUN/Creatinine Ratio 20 (6-20) 23 (6-20) Glucose Level 531 mg/dL (70-99) 340 mg/dL (70-99) Calcium Level 8.7 mg/dL (8.5-10.1) 8.9 mg/dL (8.5-10.1) Total Bilirubin 0.6 mg/dL (0.2-1.0) 0.4 mg/dL (0.2-1.0) Aspartate Amino Transf (AST/SGOT) 20 U/L (15-37) 20 U/L (15-37) Alanine Aminotransferase (ALT/SGPT) 21 U/L (16-63) 17 U/L (16-63) Alkaline Phosphatase 201 U/L (46-116) 207 U/L (46-116) Total Protein 7.2 g/dL (6.4-8.2) 7.4 g/dL (6.4-8.2) Albumin 1.7 g/dL (3.4-5.0) 1.5 g/dL (3.4-5.0) Albumin/Globulin Ratio 0.3 (1.0-1.7) 0.3 (1.0-1.7) Urine Opiates Screen Neg (NEG) Urine Methadone Screen Neg (NEG) Urine Barbiturates Neg (NEG) Urine Phencyclidine Screen Neg (NEG) Urine Amphetamine/Methamphetamine Pos (NEG) Urine Benzodiazepines Screen Neg (NEG) Urine Cocaine Screen Neg (NEG) Urine Cannabinoids Screen Pos (NEG) Urine Ethyl Alcohol Neg (NEG) Glucose (Fingerstick) 472 mg/dL (70-99) Objective Assessment Multiple skin abscesses post scalp abscesses/Fingers. Top of scalp Leukocytosis R eye periorbital cellulitis - s/p trauma 2 weeks ago. Has poor vision in right eye at baseline and has not changed. No gross swelling H/o MRSA Substance abuse. Admits smoking Meth because needs pain relief. 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 Diabetes mellitus poorly controlled. Peripheral neuropathy. SULFA ALLERGY, but states that he has been taking Bactrim. History of Clostridium difficile. History of MDRO infection including MRSA, Klebsiella, Enterococcus, Citrobacter, and group B strep. Status post left below-knee amputation. Plan Plan of Care Cont Vanc and Zosyn Add po Zyvox Tobramycin gtts for eyes - d/w pharmacy - only option with MRSA activity aside from Gent ointment which he will likely protest F/u labs in am and cults Wound care per wound care Thank you BREANNE BRUNSON MD Jan 06, 2020 07:48
[2020-01-06] MEDS ORDERED: INSULIN LISPRO 300 UNITS/3 ML VIAL. SQ SCH (08:00)
--- NOTE | 2020-01-06 09:12 | NUR ---
IP: Pt has a hx of mrsa in wounds since 03/2018 with most recent in a neck wound on 11/23/19. Pt to be in contact precautions until there are no wounds and has had a negative mrsa screen.
--- NOTE | 2020-01-06 09:17 | NUR ---
SW following. Discussed with RN, pt from home. Currently on IV abx. SW will continue to follow for any discharge planning needs.
[2020-01-06] MEDS: TOBRAMYCIN 0.3% OPHTH SOLUTION 5ML BOTTLE. OU SCH ×5 (09:37→22:41)
[2020-01-06] MEDS: LINEZOLID 600 MG TABLET PO SCH ×2 (09:37→22:40)
[2020-01-06] MEDS: CLOPIDOGREL BISULFATE 75 MG TABLET PO SCH (09:37)
[2020-01-06] MEDS: ASPIRIN ENTERIC COATED 81 MG TABLET.DR. PO SCH (09:37)
[2020-01-06 11:00] VITALS: BP 100/51
[2020-01-06] MEDS ORDERED: DEXTROSE 50% 25 GM / 50ML DISP.SYRIN. IV ONE (14:29)
[2020-01-06 15:00] VITALS: BP 108/58
[2020-01-06] MEDS ORDERED: DEXTROSE 50% 25 GM / 50ML DISP.SYRIN. IV PRN (15:15)
[2020-01-06] MEDS ORDERED: IV DEXTROSE 5% 250 ML BAG. IV PRN (15:15)
[2020-01-06] MEDS: IV NORMAL SALINE 1000ML BAG 1,000 ML IV SCH (15:21)
[2020-01-06] MEDS: VANCOMYCIN PER PHARMACY MC PRN (15:48)
[2020-01-06] MEDS: INSULIN LISPRO 300 UNITS/3 ML VIAL. SQ SCH (17:00)
[2020-01-06 19:00] VITALS: BP 117/61
--- NOTE | 2020-01-06 21:41 | HP ---
ADMIT DATE: CHIEF COMPLAINT AND HISTORY OF PRESENT ILLNESS: This is a 54-year-old white male, who is well known to me from followup. The patient was admitted from the Wound Care today after presenting there with weakness, anorexia and found to have a right periorbital cellulitis, for IV antibiotics, with also multiple skin boils, particularly in the scalp and ongoing wilson in various stages of healing on his hands. The patient's past medical history is remarkable for longstanding diabetes with poor compliance. He does admit on admission at this time that he has not been taking his insulin. 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 He has diffuse peripheral neuropathy in hands and feet, history of coronary artery disease, peripheral vascular disease, left ofgny-tgw-xiuy amputation, right great toe amputation for osteomyelitis. He has hypertension, hyperlipidemia, chronic back pain with lumbar radiculopathy and prior surgery for the same. He has a history of attention deficit disorder, depression, anxiety and prior C. diff infections. Meds were brought with the patient, listed on the computer and have been addressed. ALLERGIES: HE IS ALLERGIC TO BACTRIM. SOCIAL HISTORY: Continues to smoke. Does not drink alcohol. Denies drug use to me, but admitted apparently to ID that he smokes methamphetamine. FAMILY HISTORY: Noncontributory with his both parents being in very good health. REVIEW OF SYSTEMS: Remarkable for the soreness of the face, anorexia, weakness, generalized malaise, has felt hot and cold at times, but does not think he has had a fever. PHYSICAL EXAMINATION: GENERAL: He is a thin, cachectic-appearing white male, who appears chronically ill. VITAL SIGNS: Stable. He is afebrile. HEAD, EYES, EARS, NOSE AND THROAT: Remarkable for right periorbital cellulitis, clouding of the cornea on the right. NECK: Supple, without adenopathy or thyromegaly. CHEST: Clear to auscultation and percussion. HEART: Regular rate and rhythm, without S3, S4 or murmur. ABDOMEN: Soft, nontender, without hepatosplenomegaly or mass. EXTREMITIES: Reveal the left ikizz-szh-qhad amputation. Bilateral hands are dressed, with wounds. SKIN: He has multiple boils over the posterior scalp, superior scalp areas. NEUROLOGICAL: Nonfocal. IMPRESSION: 1. Right periorbital cellulitis. 2. Leukocytosis with a white count of 21,000. 3. Multiple skin abscesses, scalp abscesses. 4. Diabetes mellitus, poorly controlled with sugar over 500 on admission. 5. Hyponatremia, likely due to hyperglycemia. 6. Peripheral neuropathy. PLAN: Vancomycin and Zosyn. ID consult. Diabetic diet, insulin. The patient will be monitored, managed and treated appropriately. PAT MOSHER MD DR: MEHRAN/denise JOB#: [id number] / [id number]
[2020-01-06] MEDS: LACTOBACILLUS RHAMNOSUS GG 1 CAPSULE. PO SCH (22:40)
[2020-01-06] MEDS: INSULIN GLARGINE SYRINGE. SQ SCH (22:47)
[2020-01-06 23:00] VITALS: BP 141/74
[2020-01-07] MEDS: PIPERACILLIN/TAZOBACTAM 3.375 GM in IV NORMAL SALINE 50ML 50 ML IV SCH ×2 (01:00→06:19)
[2020-01-07 03:14] LABS: BASO # 0.1 x10^3/uL (0.0-0.2); BASO % 0 % (0-3); EOS # 0.1 x10^3/uL (0.0-0.7); EOS % 0 % (0-3); HEMATOCRIT 25.2 % (39.0-53.0); HEMOGLOBIN 8.3 g/dL (13.0-17.5); LYMPH # 1.1 x10^3/uL (1.0-4.8); LYMPH % 4 % (24-48); MEAN CORPUSCULAR HEMOGLOBIN 28 pg (25-35); MEAN CORPUSCULAR HGB CONC 33 g/dL (31-37); MEAN CORPUSCULAR VOLUME 85 fL (79-100); MONO # 1.4 x10^3/uL (0.0-1.1); MONO % 5 % (0-9); NEUT # 25.1 x10^3/uL (1.8-7.7); NEUT % 90 % (31-73); PLATELET COUNT 517 x10^3/uL (140-400); RED BLOOD COUNT 2.96 x10^6/uL (4.30-5.70); RED CELL DISTRIBUTION WIDTH 15.2 % (11.5-14.5); WHITE BLOOD COUNT 27.7 x10^3/uL (4.0-11.0)
[2020-01-07 03:19] LABS: VANC TR 13.6 mcg/mL (10.0-20.0)
[2020-01-07] MEDS: VANCOMYCIN PER PHARMACY MC PRN (03:36)
--- NOTE | 2020-01-07 03:36 | NUR ---
Pharmacy Vancomycin Dosing Note S:Consulted to monitor and dose vancomycin started 01/05/20. O:INO DONOHUE is a 54 year old M with Abscess Cellulitis . Height: 5 feet, 10 inches Weight: 67.188799 kg [place] Body Weight: 73.00 Adjusted Body Weight: 71.00 Dosing Weight: Actual Other Antibiotics: Zosyn 3.375gm IV q6hrs ZYVOX 600MG PO LABS: Last BUN: 18 Last Creatinine: 0.8 Creatinine Clearance: >100 mL/min Last WBC: 21.9 Last Procalcitonin: Tmax (past 24 hours): 100.3 Microbiology: I/O: Drug Levels: Last Trough level: 13.6 on 01/07/20 at 0230 Last dose given 01/06/20 at 1532 Vancomycin Dosing: Loading Dose: 1750 mg x1 Dosing Weight: Actual Target Trough: 10-20 A: Based on: TROUGH P: 1. Continue Vancomycin 1000 mg IV q12h 2. Follow up Trough level IF NEEDED 3. Pharmacy will continue to monitor, follow and adjust therapy as needed. STEVE STEEL RPH, 01/07/20 0337 Signed: 01/07/20 at 336 by STEVE STEEL RPH PHA
[2020-01-07] MEDS: VANCOMYCIN 1 GM in IV NORMAL SALINE 250ML 250 ML IV SCH (04:00)
[2020-01-07 04:08] LABS: ALBUMIN 1.3 g/dL (3.4-5.0); ALBUMIN/GLOBULIN RATIO 0.3 (1.0-1.7); CREATININE 0.9 mg/dL (0.7-1.3); GFR 88.6; POTASSIUM 4.3 mmol/L (3.5-5.1); TOTAL BILIRUBIN 0.4 mg/dL (0.2-1.0); TOTAL PROTEIN 6.3 g/dL (6.4-8.2)
[2020-01-07] MEDS: IV NORMAL SALINE 1000ML BAG 1,000 ML IV SCH ×2 (06:17→21:15)
[2020-01-07] MEDS: TOBRAMYCIN 0.3% OPHTH SOLUTION 5ML BOTTLE. OU SCH ×5 (06:17→22:23)
[2020-01-07] MEDS: oxyCODONE IR 5 MG TABLET PO PRN ×2 (06:19→19:47)
[2020-01-07 07:00] VITALS: BP 118/63
[2020-01-07] MEDS: CENEGERMIN BKBJ OS SCH ×6 (07:00→22:00)
--- NOTE | 2020-01-07 08:14 | PDOC ---
GENERAL General: vss and tmax 100.3. wbc increased to 27K. anorexic and looks horrible. chest clear, heart slightly tachy, abdomen benign, wounds/cellulitis same. discussed with ID. continue broad spectrum antibiotics and ID feels may need amputation of finger possibly. VITAL SIGNS/I&O Vital Signs/I&O: Vital Signs Date Time Temp Pulse Resp B/P (MAP) Pulse Ox O2 Delivery O2 Flow Rate FiO2 01/06/20 23:00 98.5 109 18 141/74 (96) 96 Room Air 98.5 I & O 01/06/20 01/06/20 01/07/20 15:00 23:00 07:00 Intake Total 240 ml 1240 ml Output Total 375 ml Balance 240 ml 865 ml ALLERGIES Allergies: Allergies Coded Allergies Type Severity Reaction Last Updated Verified sulfamethoxazole Allergy Intermediate Rash 04/27/19 Yes trimethoprim Allergy Intermediate Rash 04/27/19 Yes I S O L A T I O N *CONTACT* Allergy Unknown 04/27/19 Yes MEDS Medications: Current Medications Medications (Trade) Dose Ordered Sig/Tory Route PRN Reason Start Time Stop Time Status Last Admin Dose Admin Vancomycin HCl (Vancomycin Trough Level) 1 each 1X ONCE MC 01/07/20 02:30 01/07/20 02:31 DC 01/07/20 02:30 Linezolid (Zyvox) 600 mg BID PO 01/06/20 09:00 01/06/20 22:40 Lactobacillus Rhamnosus (Culturelle) 1 cap BID PO 01/06/20 21:00 01/06/20 22:40 Sodium Chloride 1,000 ml @ 100 mls/hr Q10H IV 01/06/20 15:15 01/07/20 06:17 LAB Lab: Laboratory Tests Test 01/06/20 09:35 01/06/20 11:36 01/06/20 14:24 01/06/20 15:27 Glucose (Fingerstick) 255 mg/dL (70-99) H 174 mg/dL (70-99) H 28 mg/dL (70-99) *L 161 mg/dL (70-99) H Test 01/06/20 17:10 01/06/20 22:33 01/07/20 02:30 Glucose (Fingerstick) 85 mg/dL (70-99) 300 mg/dL (70-99) H White Blood Count 27.7 x10^3/uL (4.0-11.0) H Red Blood Count 2.96 x10^6/uL (4.30-5.70) L Hemoglobin 8.3 g/dL (13.0-17.5) L Hematocrit 25.2 % (39.0-53.0) L Mean Corpuscular Volume 85 fL (79-100) Mean Corpuscular Hemoglobin 28 pg (25-35) Mean Corpuscular Hemoglobin Concent 33 g/dL (31-37) Red Cell Distribution Width 15.2 % (11.5-14.5) H Platelet Count 517 x10^3/uL (140-400) H Neutrophils (%) (Auto) 90 % (31-73) H Lymphocytes (%) (Auto) 4 % (24-48) L Monocytes (%) (Auto) 5 % (0-9) Eosinophils (%) (Auto) 0 % (0-3) Basophils (%) (Auto) 0 % (0-3) Neutrophils # (Auto) 25.1 x10^3/uL (1.8-7.7) H Lymphocytes # (Auto) 1.1 x10^3/uL (1.0-4.8) Monocytes # (Auto) 1.4 x10^3/uL (0.0-1.1) H Eosinophils # (Auto) 0.1 x10^3/uL (0.0-0.7) Basophils # (Auto) 0.1 x10^3/uL (0.0-0.2) Sodium Level 129 mmol/L (136-145) L Potassium Level 4.3 mmol/L (3.5-5.1) Chloride Level 95 mmol/L (98-107) L Carbon Dioxide Level 30 mmol/L (21-32) Anion Gap 4 (6-14) L Blood Urea Nitrogen 23 mg/dL (8-26) Creatinine 0.9 mg/dL (0.7-1.3) Estimated GFR (Cockcroft-Gault) 88.6 BUN/Creatinine Ratio 26 (6-20) H Glucose Level 276 mg/dL (70-99) H Calcium Level 8.0 mg/dL (8.5-10.1) L Total Bilirubin 0.4 mg/dL (0.2-1.0) Aspartate Amino Transferase (AST) 18 U/L (15-37) Alanine Aminotransferase (ALT) 14 U/L (16-63) L Alkaline Phosphatase 154 U/L (46-116) H Total Protein 6.3 g/dL (6.4-8.2) L Albumin 1.3 g/dL (3.4-5.0) L Albumin/Globulin Ratio 0.3 (1.0-1.7) L Vancomycin Level Trough 13.6 mcg/mL (10.0-20.0) Vancomycin Last Dose Date Vancomycin Last Dose Time Laboratory Tests 01/07/20 02:30 Laboratory Tests 01/07/20 02:30 PAT MOSHER MD Jan 07, 2020 08:14
[2020-01-07] MEDS: ASPIRIN ENTERIC COATED 81 MG TABLET.DR. PO SCH (08:21)
[2020-01-07] MEDS: LACTOBACILLUS RHAMNOSUS GG 1 CAPSULE. PO SCH ×2 (08:21→22:23)
[2020-01-07] MEDS: LINEZOLID 600 MG TABLET PO SCH ×2 (08:21→22:23)
[2020-01-07] MEDS: CLOPIDOGREL BISULFATE 75 MG TABLET PO SCH (08:22)
[2020-01-07] MEDS: INSULIN LISPRO 300 UNITS/3 ML VIAL. SQ SCH ×3 (08:32→17:00)
--- NOTE | 2020-01-07 10:43 | PDOC ---
Infectious Disease Note Subjective Subjective Known to service see consult not 11/24/19 and last progress note 11/30/19 Admitted from wound care with noncompliance and multiple wounds. No appetite despite available food. Finished zyvox but has not been on any other abx Problems started 2 plus weeks ago. Bumped right eye on wheel chair. NO F?C/S/N/V/D/SOA/dysuria. + Flatus. Has pain in wounds Vital Sign Vital Signs Vital Signs Date Time Temp Pulse Resp B/P (MAP) Pulse Ox O2 Delivery O2 Flow Rate FiO2 01/07/20 07:00 98.6 104 16 118/63 (81) 93 Room Air 98.6 Physical Exam PHYSICAL EXAM GENERAL: Lying down, More alert, NAD HEENT: Right eye now swollen shut with periorbial erythmea. Oral cavity clear, dentures NECK: Supple, LUNGS: Clear bilaterally. HEART: S1, S2. ABDOMEN: Soft, nontender, positive bowel sounds. EXTREMITIES: Left below-knee amputation stump is well-healed, Jacob hands right finger swollen and tight DERMATOLOGY: Multiple sores, boils mainly over the posterior scalp and superior scalp areas, NEUROLOGIC: Alert, oriented x 3, grossly nonfocal. Labs Lab Laboratory Tests Test 01/06/20 11:36 01/06/20 14:24 01/06/20 15:27 01/06/20 17:10 Glucose (Fingerstick) 174 mg/dL (70-99) 28 mg/dL (70-99) 161 mg/dL (70-99) 85 mg/dL (70-99) Test 01/06/20 22:33 01/07/20 02:30 01/07/20 08:23 Glucose (Fingerstick) 300 mg/dL (70-99) 212 mg/dL (70-99) White Blood Count 27.7 x10^3/uL (4.0-11.0) Red Blood Count 2.96 x10^6/uL (4.30-5.70) Hemoglobin 8.3 g/dL (13.0-17.5) Hematocrit 25.2 % (39.0-53.0) Mean Corpuscular Volume 85 fL (79-100) Mean Corpuscular Hemoglobin 28 pg (25-35) Mean Corpuscular Hemoglobin Concent 33 g/dL (31-37) Red Cell Distribution Width 15.2 % (11.5-14.5) Platelet Count 517 x10^3/uL (140-400) Neutrophils (%) (Auto) 90 % (31-73) Lymphocytes (%) (Auto) 4 % (24-48) Monocytes (%) (Auto) 5 % (0-9) Eosinophils (%) (Auto) 0 % (0-3) Basophils (%) (Auto) 0 % (0-3) Neutrophils # (Auto) 25.1 x10^3/uL (1.8-7.7) Lymphocytes # (Auto) 1.1 x10^3/uL (1.0-4.8) Monocytes # (Auto) 1.4 x10^3/uL (0.0-1.1) Eosinophils # (Auto) 0.1 x10^3/uL (0.0-0.7) Basophils # (Auto) 0.1 x10^3/uL (0.0-0.2) Sodium Level 129 mmol/L (136-145) Potassium Level 4.3 mmol/L (3.5-5.1) Chloride Level 95 mmol/L (98-107) Carbon Dioxide Level 30 mmol/L (21-32) Anion Gap 4 (6-14) Blood Urea Nitrogen 23 mg/dL (8-26) Creatinine 0.9 mg/dL (0.7-1.3) Estimated GFR (Cockcroft-Gault) 88.6 BUN/Creatinine Ratio 26 (6-20) Glucose Level 276 mg/dL (70-99) Calcium Level 8.0 mg/dL (8.5-10.1) Total Bilirubin 0.4 mg/dL (0.2-1.0) Aspartate Amino Transf (AST/SGOT) 18 U/L (15-37) Alanine Aminotransferase (ALT/SGPT) 14 U/L (16-63) Alkaline Phosphatase 154 U/L (46-116) Total Protein 6.3 g/dL (6.4-8.2) Albumin 1.3 g/dL (3.4-5.0) Albumin/Globulin Ratio 0.3 (1.0-1.7) Vancomycin Level Trough 13.6 mcg/mL (10.0-20.0) Vancomycin Last Dose Date Vancomycin Last Dose Time Micro Microbiology 01/05/20 Anaerobic/Aerobic Culture, Resulted Pending 01/05/20 Anaerobic Culture Result 1 (BRADEN), Resulted Pending 01/05/20 Aerobic Culture, Resulted Pending 01/05/20 Aerobic Culture Result 1 (BRADEN), Resulted Pending 01/05/20 Gram Stain - Final, Resulted 01/05/20 Gram Stain Result 1 (BRADEN) - Final, Resulted 01/05/20 Gram Stain Result 2 (BRADEN) - Final, Resulted Objective Assessment Multiple skin abscesses post scalp abscesses/Fingers. Top of scalp Leukocytosis R eye periorbital cellulitis - s/p trauma 2 weeks ago. Has poor vision in right eye at baseline and has not changed. No gross swelling H/o MRSA Substance abuse. Admits smoking Meth because needs pain relief. 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 Diabetes mellitus poorly controlled. Peripheral neuropathy. SULFA ALLERGY, but states that he has been taking Bactrim. History of Clostridium difficile. History of MDRO infection including MRSA, Klebsiella, Enterococcus, Citrobacter, and group B strep. Status post left below-knee amputation. Plan Plan of Care Stat CT orbits - if abscess may need transfer to other facility MRI hand Change to Dapto/Meropenem Add Micafungin - Vfend not available Discont Vanc and Zosyn Add po Zyvox Ortho consult - [facility] Sed rate and CK added Tobramycin gtts for eyes started 01/06- d/w pharmacy - only option with MRSA activity aside from Gent ointment which he will likely protest F/u labs in am and cults Wound care per wound care D/w mother and nursing BREANNE BRUNSON MD Jan 07, 2020 10:43
[2020-01-07 11:00] VITALS: BP 114/56
--- NOTE | 2020-01-07 11:38 | NUR ---
SW following. Discussed with RN, pt blood sugars problematic today. Having consult for possible amp. SW will continue to follow.
[2020-01-07] MEDS ORDERED: IOHEXOL 300 MG/ML 100ML VIAL. IV ONE (11:45)
[2020-01-07] MEDS ORDERED: CONTRAST GIVEN. MC PRN (11:45)
[2020-01-07] MEDS ORDERED: INSULIN LISPRO 300 UNITS/3 ML VIAL. SQ ONE (12:00)
--- NOTE | 2020-01-07 13:11 | PDOC2 ---
CONSULT Date of Consult Date of Consult DATE: 01/07/20 TIME: 13:10 Reason for Consult Reason for Consult: finger abscesses, finger infections. Identification/Chief Complaint Chief Complaint purulent drainage from right index finger, wounds on left ring and left small finger Source Source: Chart review, Patient History of Present Illness Reason for Visit: This is a 54-year-old right handed man admitted from the [facility] after presenting there with weakness, anorexia and found to have a right periorbital cellulitis, for IV antibiotics, with also multiple skin boils, particularly in the scalp and ongoing wilson in various stages of healing on his hands. He is not currently working. He has previous partial finger amputations, but requested debridement procedures only on the fingers and is not willing to have additional finger amputations at this time. The patient's past medical history is remarkable for longstanding diabetes with poor compliance. He does admit on admission at this time that he has not been taking his insulin. 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 He has diffuse peripheral neuropathy in hands and feet, history of coronary artery disease, peripheral vascular disease, left tfmpf-[id number] amputation, right great toe amputation for osteomyelitis. He has hypertension, hyperlipidemia, chronic back pain with lumbar radiculopathy and prior surgery for the same. He has a history of attention deficit disorder, depression, anxiety and prior C. diff infections. Past Medical History Cardiovascular: HTN, Hyperlipidemia, Other Pulmonary: No pertinent hx CENTRAL NERVOUS SYSTEM: Periperal neuropathy Endocrine: Diabetes Past Surgical History Past Surgical History: Other Family History Family History: Hypertension Social History ALCOHOL: occassional Drugs: None Lives: Alone Current Medications Current Medications Current Medications Vancomycin HCl (Vanco Per Pharmacy) 1 each PRN DAILY PRN MC SEE COMMENTS Last administered on 01/07/20at 03:36; Start 01/05/20 at 13:15; Stop 01/07/20 at 11:32; Status DC Vancomycin HCl 1.75 gm/Sodium Chloride 500 ml @ 250 mls/hr 1X ONCE IV Last administered on 01/05/20at 15:16; Start 01/05/20 at 14:00; Stop 01/05/20 at 15:59; Status DC Pharmacy Consult (C.diff Med Screen By Rx) 1 each 1X ONCE MC ; Start 01/05/20 at 17:30; Stop 01/05/20 at 17:46; Status DC Piperacillin Sod/ Tazobactam Sod 3.375 gm/Sodium Chloride 50 ml @ 100 mls/hr Q6HRS IV Last administered on 01/07/20at 06:19; Start 01/05/20 at 18:00; Stop 01/07/20 at 11:32; Status DC Aspirin (Ecotrin) 81 mg DAILYWBKFT PO Last administered on 01/07/20at 08:21; Start 01/06/20 at 08:00 Clopidogrel Bisulfate (Plavix) 75 mg DAILYWBKFT PO Last administered on 01/07/20at 08:22; Start 01/06/20 at 08:00 Non-Formulary Medication (Cenegermin-Bkbj (Oxervate)) 1 ml 6XDAY OS ; Start 01/05/20 at 19:00; Status UNV Insulin Glargine (Lantus Syringe) 20 unit QHS SQ ; Start 01/05/20 at 21:00; Stop 01/05/20 at 22:06; Status DC Insulin Human Lispro (HumaLOG) 60 units TIDWMEALS SQ ; Start 01/05/20 at 17:30; Status Cancel Oxycodone HCl (Roxicodone) 15 mg PRN Q4HRS PRN PO MODERATE TO SEVERE PAIN Last administered on 01/07/20at 06:19; Start 01/05/20 at 17:45 Insulin Human Lispro (HumaLOG) 60 units TIDWMEALS SQ Last administered on 01/06/20at 09:47; Start 01/06/20 at 08:00; Stop 01/06/20 at 15:12; Status DC Vancomycin HCl 1 gm/Sodium Chloride 250 ml @ 250 mls/hr Q12H IV Last administered on 01/07/20at 04:00; Start 01/06/20 at 03:00; Stop 01/07/20 at 11:32; Status DC Vancomycin HCl (Vancomycin Trough Level) 1 each 1X ONCE MC Last administered on 01/07/20at 02:30; Start 01/07/20 at 02:30; Stop 01/07/20 at 02:31; Status DC Insulin Glargine (Lantus Syringe) 20 unit QHS SQ ; Start 01/05/20 at 22:06; Status Cancel Insulin Glargine (Lantus Syringe) 20 unit QHS SQ Last administered on 01/06/20at 22:47; Start 01/05/20 at 23:00 Tobramycin Sulfate (Tobrex Ophth Soln) 2 drop Q4HRS W/A OU Last administered on 01/07/20at 06:17; Start 01/06/20 at 08:00 Linezolid (Zyvox) 600 mg BID PO Last administered on 01/07/20at 08:21; Start 01/06/20 at 09:00 Lactobacillus Rhamnosus (Culturelle) 1 cap BID PO Last administered on 01/07/20at 08:21; Start 01/06/20 at 21:00 Dextrose (Dextrose 50%-Water Syringe) 25 gm STK-MED ONCE IV ; Start 01/06/20 at 14:29; Stop 01/06/20 at 14:29; Status DC Insulin Human Lispro (HumaLOG) 0-7 UNITS TIDWMEALS SQ Last administered on 01/07/20at 08:32; Start 01/06/20 at 17:00 Dextrose (Dextrose 50%-Water Syringe) 12.5 gm PRN Q15MIN PRN IV SEE COMMENTS; Start 01/06/20 at 15:15 Dextrose (Iv Dextrose 5%) 250 ml PRN Q15MIN PRN IV SEE COMMENTS; Start 01/06/20 at 15:15 Sodium Chloride 1,000 ml @ 100 mls/hr Q10H IV Last administered on 01/07/20at 06:17; Start 01/06/20 at 15:15 Daptomycin 400 mg/ Sodium Chloride 50 ml @ 100 mls/hr Q24H IV ; Start 01/07/20 at 13:00 Meropenem 1 gm/ Sodium Chloride 100 ml @ 200 mls/hr Q8HRS IV ; Start 01/07/20 at 14:00 Micafungin Sodium 100 mg/Dextrose 100 ml @ 100 mls/hr Q24H IV ; Start 01/07/20 at 12:00 Iohexol (Omnipaque 300 Mg/ml) 75 ml 1X ONCE IV Last administered on 01/07/20at 12:48; Start 01/07/20 at 11:45; Stop 01/07/20 at 11:46; Status DC Info (CONTRAST GIVEN -- Rx MONITORING) 1 each PRN DAILY PRN MC SEE COMMENTS; Start 01/07/20 at 11:45; Stop 01/09/20 at 11:44 Insulin Human Lispro (HumaLOG) 10 units 1X ONCE SQ Last administered on 01/07/20at 12:11; Start 01/07/20 at 12:00; Stop 01/07/20 at 12:03; Status DC Active Scripts Active Zyvox (Linezolid) 600 Mg Tablet 600 Mg PO BID 10 Days Aspirin Ec (Aspirin) 81 Mg Tablet.dr 81 Mg PO DAILYWBKFT 90 Days Clopidogrel (Clopidogrel Bisulfate) 75 Mg Tablet 75 Mg PO DAILYWBKFT 90 Days Reported Doxycycline Hyclate 100 Mg Capsule 1 Cap PO BID 30 Days Take all of the Zyvox first, then start taking the Doxycycline. Zyvox (Linezolid) 600 Mg Tablet 600 Mg PO BID 14 Days Oxervate (Cenegermin-Bkbj) 1 Ml Drops 1 Ml OS 6XDAY 30 Days Oxycodone Hcl Immed.release (Oxycodone Hcl) 15 Mg Tablet 15 Mg PO PRN Q4HRS PRN Tresiba Flextouch U-100 (Insulin Degludec) 100 Unit/1 Ml Insuln.pen 20 Unit SQ HS Humalog (Insulin Lispro) 100 Unit/1 Ml Cartridge 60 Unit SQ TIDBFRMEAL Allergies Allergies: Coded Allergies: sulfamethoxazole (Verified Allergy, Intermediate, Rash, 04/27/19) trimethoprim (Verified Allergy, Intermediate, Rash, 04/27/19) I S O L A T I O N *CONTACT* (Verified Allergy, Unknown, 04/27/19) mrsa ROS Review of System Remarkable for the soreness of the face, anorexia, weakness, generalized malaise, has felt hot and cold at times, but does not think he has had a fever. Physical Exam General: No acute distress, Other (somnolent vs flat affect) HEENT: Other (appears to be blind in R eye) Extremities: Other (multiple finger amputations. Poor skin condition throughout hands and fingers and entire body. Scalp wilson, multiple abscesses and wounds. The right index finger has a 2 x 1 cm open wound on the volar aspect at the distal interphalangeal joint, and there is purulent drainage. There is sausage digit swelling of the right index finger, and the finger is held in slight flexion and is erythematous, consistent with flexor tenosynovitis and probable osteomyelitis. The usual pain associated with this is not present, the patient has severe neuropathy said he cannot feel the finger at all. There is erythema and some tissue loss, but no severe ischemia or gangrene. The finger is questionably salvageable. The left ring and small finger have superficial drainage and open wounds, with lower grade infection than the right index finger. They appear that they would benefit from skin debridement and less likely have osteomyelitis however there are several areas of apparent chronic full thickness skin loss on both the left ring and small finger.) Neuro: Other (absent LT sensation upper and lower extremities) Psych/Mental Status: Other (flat affect, cooperative) Vitals VITALS Vital Signs Date Time Temp Pulse Resp B/P (MAP) Pulse Ox O2 Delivery O2 Flow Rate FiO2 01/07/20 11:00 97.9 106 16 114/56 (75) 100 Room Air 97.9 Labs Labs Laboratory Tests Test 01/05/20 14:10 01/05/20 17:50 01/05/20 21:14 01/06/20 03:45 White Blood Count 21.1 x10^3/uL (4.0-11.0) 21.9 x10^3/uL (4.0-11.0) Red Blood Count 3.52 x10^6/uL (4.30-5.70) 3.55 x10^6/uL (4.30-5.70) Hemoglobin 9.6 g/dL (13.0-17.5) 9.8 g/dL (13.0-17.5) Hematocrit 30.3 % (39.0-53.0) 30.3 % (39.0-53.0) Mean Corpuscular Volume 86 fL (79-100) 85 fL (79-100) Mean Corpuscular Hemoglobin 27 pg (25-35) 28 pg (25-35) Mean Corpuscular Hemoglobin Concent 32 g/dL (31-37) 32 g/dL (31-37) Red Cell Distribution Width 15.5 % (11.5-14.5) 15.4 % (11.5-14.5) Platelet Count 518 x10^3/uL (140-400) 527 x10^3/uL (140-400) Neutrophils (%) (Auto) 92 % (31-73) 90 % (31-73) Lymphocytes (%) (Auto) 3 % (24-48) 4 % (24-48) Monocytes (%) (Auto) 5 % (0-9) 5 % (0-9) Eosinophils (%) (Auto) 0 % (0-3) 0 % (0-3) Basophils (%) (Auto) 0 % (0-3) 0 % (0-3) Neutrophils # (Auto) 19.4 x10^3/uL (1.8-7.7) 19.7 x10^3/uL (1.8-7.7) Lymphocytes # (Auto) 0.7 x10^3/uL (1.0-4.8) 1.0 x10^3/uL (1.0-4.8) Monocytes # (Auto) 1.0 x10^3/uL (0.0-1.1) 1.1 x10^3/uL (0.0-1.1) Eosinophils # (Auto) 0.0 x10^3/uL (0.0-0.7) 0.1 x10^3/uL (0.0-0.7) Basophils # (Auto) 0.1 x10^3/uL (0.0-0.2) 0.1 x10^3/uL (0.0-0.2) Segmented Neutrophils % 66 % (35-66) Band Neutrophils % 31 % (0-9) Lymphocytes % 1 % (24-48) Monocytes % 2 % (0-10) Toxic Granulation Slight Platelet Estimate Increased (ADEQUATE) Large Platelets Few Sodium Level 123 mmol/L (136-145) 130 mmol/L (136-145) Potassium Level 5.0 mmol/L (3.5-5.1) 4.3 mmol/L (3.5-5.1) Chloride Level 87 mmol/L (98-107) 94 mmol/L (98-107) Carbon Dioxide Level 29 mmol/L (21-32) 30 mmol/L (21-32) Anion Gap 7 (6-14) 6 (6-14) Blood Urea Nitrogen 20 mg/dL (8-26) 18 mg/dL (8-26) Creatinine 1.0 mg/dL (0.7-1.3) 0.8 mg/dL (0.7-1.3) Estimated GFR (Cockcroft-Gault) 78.5 101.5 BUN/Creatinine Ratio 20 (6-20) 23 (6-20) Glucose Level 531 mg/dL (70-99) 340 mg/dL (70-99) Calcium Level 8.7 mg/dL (8.5-10.1) 8.9 mg/dL (8.5-10.1) Total Bilirubin 0.6 mg/dL (0.2-1.0) 0.4 mg/dL (0.2-1.0) Aspartate Amino Transf (AST/SGOT) 20 U/L (15-37) 20 U/L (15-37) Alanine Aminotransferase (ALT/SGPT) 21 U/L (16-63) 17 U/L (16-63) Alkaline Phosphatase 201 U/L (46-116) 207 U/L (46-116) Total Protein 7.2 g/dL (6.4-8.2) 7.4 g/dL (6.4-8.2) Albumin 1.7 g/dL (3.4-5.0) 1.5 g/dL (3.4-5.0) Albumin/Globulin Ratio 0.3 (1.0-1.7) 0.3 (1.0-1.7) Urine Opiates Screen Neg (NEG) Urine Methadone Screen Neg (NEG) Urine Barbiturates Neg (NEG) Urine Phencyclidine Screen Neg (NEG) Urine Amphetamine/Methamphetamine Pos (NEG) Urine Benzodiazepines Screen Neg (NEG) Urine Cocaine Screen Neg (NEG) Urine Cannabinoids Screen Pos (NEG) Urine Ethyl Alcohol Neg (NEG) Glucose (Fingerstick) 472 mg/dL (70-99) Test 01/06/20 09:35 01/06/20 11:36 01/06/20 14:24 01/06/20 15:27 Glucose (Fingerstick) 255 mg/dL (70-99) 174 mg/dL (70-99) 28 mg/dL (70-99) 161 mg/dL (70-99) Test 01/06/20 17:10 01/06/20 22:33 01/07/20 02:30 01/07/20 08:23 Glucose (Fingerstick) 85 mg/dL (70-99) 300 mg/dL (70-99) 212 mg/dL (70-99) White Blood Count 27.7 x10^3/uL (4.0-11.0) Red Blood Count 2.96 x10^6/uL (4.30-5.70) Hemoglobin 8.3 g/dL (13.0-17.5) Hematocrit 25.2 % (39.0-53.0) Mean Corpuscular Volume 85 fL (79-100) Mean Corpuscular Hemoglobin 28 pg (25-35) Mean Corpuscular Hemoglobin Concent 33 g/dL (31-37) Red Cell Distribution Width 15.2 % (11.5-14.5) Platelet Count 517 x10^3/uL (140-400) Neutrophils (%) (Auto) 90 % (31-73) Lymphocytes (%) (Auto) 4 % (24-48) Monocytes (%) (Auto) 5 % (0-9) Eosinophils (%) (Auto) 0 % (0-3) Basophils (%) (Auto) 0 % (0-3) Neutrophils # (Auto) 25.1 x10^3/uL (1.8-7.7) Lymphocytes # (Auto) 1.1 x10^3/uL (1.0-4.8) Monocytes # (Auto) 1.4 x10^3/uL (0.0-1.1) Eosinophils # (Auto) 0.1 x10^3/uL (0.0-0.7) Basophils # (Auto) 0.1 x10^3/uL (0.0-0.2) Sodium Level 129 mmol/L (136-145) Potassium Level 4.3 mmol/L (3.5-5.1) Chloride Level 95 mmol/L (98-107) Carbon Dioxide Level 30 mmol/L (21-32) Anion Gap 4 (6-14) Blood Urea Nitrogen 23 mg/dL (8-26) Creatinine 0.9 mg/dL (0.7-1.3) Estimated GFR (Cockcroft-Gault) 88.6 BUN/Creatinine Ratio 26 (6-20) Glucose Level 276 mg/dL (70-99) Calcium Level 8.0 mg/dL (8.5-10.1) Total Bilirubin 0.4 mg/dL (0.2-1.0) Aspartate Amino Transf (AST/SGOT) 18 U/L (15-37) Alanine Aminotransferase (ALT/SGPT) 14 U/L (16-63) Alkaline Phosphatase 154 U/L (46-116) Creatine Kinase 16 U/L (39-308) Total Protein 6.3 g/dL (6.4-8.2) Albumin 1.3 g/dL (3.4-5.0) Albumin/Globulin Ratio 0.3 (1.0-1.7) Vancomycin Level Trough 13.6 mcg/mL (10.0-20.0) Vancomycin Last Dose Date Vancomycin Last Dose Time Test 01/07/20 11:37 Glucose (Fingerstick) 403 mg/dL (70-99) Laboratory Tests Test 01/06/20 14:24 01/06/20 15:27 01/06/20 17:10 01/06/20 22:33 Glucose (Fingerstick) 28 mg/dL (70-99) 161 mg/dL (70-99) 85 mg/dL (70-99) 300 mg/dL (70-99) Test 01/07/20 02:30 01/07/20 08:23 01/07/20 11:37 White Blood Count 27.7 x10^3/uL (4.0-11.0) Red Blood Count 2.96 x10^6/uL (4.30-5.70) Hemoglobin 8.3 g/dL (13.0-17.5) Hematocrit 25.2 % (39.0-53.0) Mean Corpuscular Volume 85 fL (79-100) Mean Corpuscular Hemoglobin 28 pg (25-35) Mean Corpuscular Hemoglobin Concent 33 g/dL (31-37) Red Cell Distribution Width 15.2 % (11.5-14.5) Platelet Count 517 x10^3/uL (140-400) Neutrophils (%) (Auto) 90 % (31-73) Lymphocytes (%) (Auto) 4 % (24-48) Monocytes (%) (Auto) 5 % (0-9) Eosinophils (%) (Auto) 0 % (0-3) Basophils (%) (Auto) 0 % (0-3) Neutrophils # (Auto) 25.1 x10^3/uL (1.8-7.7) Lymphocytes # (Auto) 1.1 x10^3/uL (1.0-4.8) Monocytes # (Auto) 1.4 x10^3/uL (0.0-1.1) Eosinophils # (Auto) 0.1 x10^3/uL (0.0-0.7) Basophils # (Auto) 0.1 x10^3/uL (0.0-0.2) Sodium Level 129 mmol/L (136-145) Potassium Level 4.3 mmol/L (3.5-5.1) Chloride Level 95 mmol/L (98-107) Carbon Dioxide Level 30 mmol/L (21-32) Anion Gap 4 (6-14) Blood Urea Nitrogen 23 mg/dL (8-26) Creatinine 0.9 mg/dL (0.7-1.3) Estimated GFR (Cockcroft-Gault) 88.6 BUN/Creatinine Ratio 26 (6-20) Glucose Level 276 mg/dL (70-99) Calcium Level 8.0 mg/dL (8.5-10.1) Total Bilirubin 0.4 mg/dL (0.2-1.0) Aspartate Amino Transf (AST/SGOT) 18 U/L (15-37) Alanine Aminotransferase (ALT/SGPT) 14 U/L (16-63) Alkaline Phosphatase 154 U/L (46-116) Creatine Kinase 16 U/L (39-308) Total Protein 6.3 g/dL (6.4-8.2) Albumin 1.3 g/dL (3.4-5.0) Albumin/Globulin Ratio 0.3 (1.0-1.7) Vancomycin Level Trough 13.6 mcg/mL (10.0-20.0) Vancomycin Last Dose Date Vancomycin Last Dose Time Glucose (Fingerstick) 212 mg/dL (70-99) 403 mg/dL (70-99) Images Images The patient and nursing staff mentioned an MRI was done of both upper extremities but I don't see it listed yet in the imaging software. I will review those if they are available. Assessment/Plan Assessment/Plan On the right index finger I suspect flexor tenosynovitis, and probable osteomyelitis. I'm not sure the finger is salvageable but the patient is not willing to proceed with amputation at this time. I will plan Jerel incisions for flexor tenosynotivis and there may be bone involvement requiring bone debridement of the right index finger. I will also plan I&D of the left ring and small fingers at the same anesthetic, which do not appear to require tendon sheath incision. The patient agrees with that plan. JACQUELINE BURRELL MD Jan 07, 2020 13:11
--- NOTE | 2020-01-07 13:16 | RAD ---
EXAM: CT Maxillofacial with IV contrast INDICATION: Rapidly progressing right periorbital cellulitis. TECHNIQUE: Multi-detector row CT images were obtained through the maxillofacial region with the use of IV contrast. Post-processing reconstructed images were obtained for interpretation. All CT scans performed at this facility utilize dose optimization techniques as appropriate to the exam, including the following: Automated exposure control and adjustment of the mA and/or KV according to patient size (this includes techniques or standardized protocols for targeted exams where dose is indication/reason for exam). IV CONTRAST: Administered COMPARISON: Soft tissue neck CT of November 24, 2019 FINDINGS: OSSEOUS: No evidence of fracture or bone destruction. VISUALIZED INTRACRANIAL STRUCTURES: Unremarkable. ORBITS: There is marked right periorbital soft tissue thickening including subcutaneous edema in the right-sided upper neck and face extending from the level of the hyoid bone at the inferior most margin of the [id number] through the right scalp at the superiormost [id number] above the orbits. The globes are intact and there is no retrobulbar soft tissue stranding. SINUSES: The visualized paranasal sinuses are well aerated and the mastoids are clear. SOFT TISSUES: There is thickening of the patient's right-sided upper lip with low density tissue in the inner aspect of the upper lip measuring 2.5 x 1.3 x 2.5 cm that could represent an organizing fluid collection. Recommend correlation with the clinical exam. There are some mildly prominent right-sided cervical lymph nodes. IMPRESSION: Extensive right facial and periorbital cellulitis with no evidence of orbital cellulitis. There is asymmetric thickening of the patient's right upper lip, of potential concern for an organizing fluid collection. Correlate with the clinical exam. Electronically signed by: Zeny Ortez MD (01/07/2020 1:14 PM) [id number]
[2020-01-07] MEDS: MEROPENEM 1 GM in IV NORMAL SALINE 100ML 100 ML IV SCH ×2 (14:49→22:24)
[2020-01-07 15:00] VITALS: BP 110/47
[2020-01-07] MEDS: DAPTOmycin (GENERIC) IVPB 400 MG in IV NORMAL SALINE 50ML 50 ML IV SCH (15:56)
[2020-01-07] MEDS ORDERED: INSULIN LISPRO 100 UNIT/ML 3ML VIAL for OP,RR ONLY. SQ PRN (17:00)
[2020-01-07] MEDS: MICAFUNGIN 100 MG in IV DEXTROSE 5% 100ML 100 ML IV SCH (18:33)
[2020-01-07 19:00] VITALS: BP 144/77
[2020-01-07] MEDS: INSULIN GLARGINE SYRINGE. SQ SCH (22:32)
[2020-01-07 23:05] VITALS: BP 134/65
[2020-01-08 03:13] VITALS: BP 142/70
[2020-01-08] MEDS: oxyCODONE IR 5 MG TABLET PO PRN ×3 (04:28→21:32)
[2020-01-08] MEDS: MEROPENEM 1 GM in IV NORMAL SALINE 100ML 100 ML IV SCH ×3 (06:26→21:29)
[2020-01-08] MEDS: TOBRAMYCIN 0.3% OPHTH SOLUTION 5ML BOTTLE. OU SCH ×5 (06:27→21:43)
[2020-01-08] MEDS ORDERED: PROCHLORPERAZINE 10 MG/2 ML VIAL. IV PRN (07:00)
[2020-01-08] MEDS ORDERED: ONDANSETRON PF 4 MG/2 ML VIAL. IV PRN (07:00)
[2020-01-08] MEDS ORDERED: MORPHINE SULFATE 2 MG/ML VIAL. IV PRN (07:00)
[2020-01-08] MEDS ORDERED: IV RINGERS,LACTATED 1000ML 1,000 ML IV SCH (07:00)
[2020-01-08] MEDS ORDERED: HYDROmorphone 2 MG/ML VIAL IV PRN (07:00)
[2020-01-08] MEDS ORDERED: fentaNYL PF VIAL 100 MCG/2 ML VIAL IV PRN ×2 (07:00)
[2020-01-08] MEDS ORDERED: BUPIVACAINE-EPI 0.25%-1:200000 MPF 30 ML VIAL. ONE (07:06)
[2020-01-08] MEDS: IV NORMAL SALINE 1000ML BAG 1,000 ML IV SCH ×2 (07:15→17:15)
[2020-01-08] MEDS ORDERED: PROPOFOL 20 ML IV ONE (07:34)
[2020-01-08] MEDS ORDERED: DEXAMETHASONE SOD PHOS 4 MG/ML VIAL ONE (07:34)
[2020-01-08] MEDS ORDERED: ONDANSETRON PF 4 MG/2 ML VIAL. ONE (07:34)
[2020-01-08] MEDS ORDERED: LIDOCAINE 2% PF 5 ML VIAL. ONE (07:34)
[2020-01-08 07:37] LABS: BASO # 0.1 x10^3/uL (0.0-0.2); BASO % 0 % (0-3); EOS % 0 % (0-3); HEMATOCRIT 26.7 % (39.0-53.0); HEMOGLOBIN 8.5 g/dL (13.0-17.5); LYMPH # 1.1 x10^3/uL (1.0-4.8); LYMPH % 5 % (24-48); MEAN CORPUSCULAR HEMOGLOBIN 27 pg (25-35); MEAN CORPUSCULAR HGB CONC 32 g/dL (31-37); MEAN CORPUSCULAR VOLUME 85 fL (79-100); MONO # 1.2 x10^3/uL (0.0-1.1); MONO % 6 % (0-9); NEUT # 18.9 x10^3/uL (1.8-7.7); NEUT % 89 % (31-73); PLATELET COUNT 541 x10^3/uL (140-400); RED BLOOD COUNT 3.13 x10^6/uL (4.30-5.70); RED CELL DISTRIBUTION WIDTH 15.5 % (11.5-14.5); WHITE BLOOD COUNT 21.3 x10^3/uL (4.0-11.0)
[2020-01-08 07:48] LABS: ALBUMIN/GLOBULIN RATIO 0.2 (1.0-1.7); CALCIUM 8.4 mg/dL (8.5-10.1); CREATININE 0.8 mg/dL (0.7-1.3); GFR 101.5; POTASSIUM 3.9 mmol/L (3.5-5.1); TOTAL BILIRUBIN 0.4 mg/dL (0.2-1.0)
[2020-01-08] MEDS: CLOPIDOGREL BISULFATE 75 MG TABLET PO SCH (08:00)
[2020-01-08] MEDS: ASPIRIN ENTERIC COATED 81 MG TABLET.DR. PO SCH (08:00)
[2020-01-08] MEDS: INSULIN LISPRO 300 UNITS/3 ML VIAL. SQ SCH ×3 (08:00→17:00)
[2020-01-08] MEDS: LACTOBACILLUS RHAMNOSUS GG 1 CAPSULE. PO SCH ×2 (08:35→21:29)
--- NOTE | 2020-01-08 08:52 | RAD ---
EXAM: MRI right hand without contrast DATE: 01/07/2020 11:29 AM CLINICAL HISTORY: Severe right index finger infection, soft tissue swelling, pain COMPARISON: None. TECHNIQUE: Multiplanar, multisequence MRI of the right hand was performed centered at the index finger without IV contrast. FINDINGS: This examination is limited by motion artifact. There is diffuse soft tissue edema about the left index finger most prominent on the palmar aspect. There may be a small loculated collection or focal phlegmonous change at the palmar aspect of the index PIP joint measuring 9 mm in craniocaudal dimension. There are diffuse T1 marrow signal changes within the proximal portion of the distal phalanx and distal portion of the middle phalanx with T1 marrow replacement, without significantly visualized interspersed fat. Mild associated marrow edema is also seen. This is suspicious for acute osteomyelitis. The visualized flexor and extensor tendons of the index finger are intact without tenosynovitis. No significant joint effusion. 8mmm T2 hyperintense structure is seen at the palmar aspect of the long finger MCP joint. Although this is favored to represent overlying fiducial marker, skin bulla/bleb would have similar appearance. IMPRESSION: 1. Diffuse edema about the right index finger with associated T1 marrow signal changes within the proximal and middle phalanx meets MRI criteria for osteomyelitis. 2. 9 mm nodular subcutaneous soft tissue edema, possibly abscess or phlegmonous change, further delineation is limited without IV contrast. Consider ultrasound if clinically indicated Electronically signed by: Luis Alberto Montaño MD (01/08/2020 8:50 AM) [id number]
--- NOTE | 2020-01-08 09:15 | PDOC ---
GENERAL General: vss with tmax 100.5. for surgery for debridement right index finger. sugars variable. exam stable. ct orbit with periorbital cellulitis and no involvement of eye. MRI right arm with osteomylelitis of 3rd finger. contiinue antibiotics and supportive care. VITAL SIGNS/I&O Vital Signs/I&O: Vital Signs Date Time Temp Pulse Resp B/P (MAP) Pulse Ox O2 Delivery O2 Flow Rate FiO2 01/08/20 05:43 16 Room Air 01/08/20 04:28 95 01/08/20 03:13 100.5 109 142/70 (94) 100.5 I & O 01/07/20 01/07/20 01/08/20 15:00 23:00 07:00 Intake Total 100 ml Output Total 500 ml 500 ml 500 ml Balance -500 ml -500 ml -400 ml ALLERGIES Allergies: Allergies Coded Allergies Type Severity Reaction Last Updated Verified sulfamethoxazole Allergy Intermediate Rash 04/27/19 Yes trimethoprim Allergy Intermediate Rash 04/27/19 Yes I S O L A T I O N *CONTACT* Allergy Unknown 04/27/19 Yes MEDS Medications: Current Medications Medications (Trade) Dose Ordered Sig/Tory Route PRN Reason Start Time Stop Time Status Last Admin Dose Admin Daptomycin 400 mg/ Sodium Chloride 50 ml @ 100 mls/hr Q24H IV 01/07/20 13:00 01/07/20 15:56 Meropenem 1 gm/ Sodium Chloride 100 ml @ 200 mls/hr Q8HRS IV 01/07/20 14:00 01/08/20 06:26 Micafungin Sodium 100 mg/Dextrose 100 ml @ 100 mls/hr Q24H IV 01/07/20 12:00 01/07/20 18:33 Iohexol (Omnipaque 300 Mg/ml) 75 ml 1X ONCE IV 01/07/20 11:45 01/07/20 11:46 DC 01/07/20 12:48 Insulin Human Lispro (HumaLOG) 10 units 1X ONCE SQ 01/07/20 12:00 01/07/20 12:03 DC 01/07/20 12:11 LAB Lab: Laboratory Tests Test 01/07/20 11:37 01/07/20 12:00 01/07/20 18:35 01/07/20 20:10 Glucose (Fingerstick) 403 mg/dL (70-99) H 146 mg/dL (70-99) H 116 mg/dL (70-99) H Erythrocyte Sedimentation Rate > 130 (0-15) H Test 01/08/20 07:20 White Blood Count 21.3 x10^3/uL (4.0-11.0) H Red Blood Count 3.13 x10^6/uL (4.30-5.70) L Hemoglobin 8.5 g/dL (13.0-17.5) L Hematocrit 26.7 % (39.0-53.0) L Mean Corpuscular Volume 85 fL (79-100) Mean Corpuscular Hemoglobin 27 pg (25-35) Mean Corpuscular Hemoglobin Concent 32 g/dL (31-37) Red Cell Distribution Width 15.5 % (11.5-14.5) H Platelet Count 541 x10^3/uL (140-400) H Neutrophils (%) (Auto) 89 % (31-73) H Lymphocytes (%) (Auto) 5 % (24-48) L Monocytes (%) (Auto) 6 % (0-9) Eosinophils (%) (Auto) 0 % (0-3) Basophils (%) (Auto) 0 % (0-3) Neutrophils # (Auto) 18.9 x10^3/uL (1.8-7.7) H Lymphocytes # (Auto) 1.1 x10^3/uL (1.0-4.8) Monocytes # (Auto) 1.2 x10^3/uL (0.0-1.1) H Eosinophils # (Auto) 0.0 x10^3/uL (0.0-0.7) Basophils # (Auto) 0.1 x10^3/uL (0.0-0.2) Sodium Level 131 mmol/L (136-145) L Potassium Level 3.9 mmol/L (3.5-5.1) Chloride Level 96 mmol/L (98-107) L Carbon Dioxide Level 28 mmol/L (21-32) Anion Gap 7 (6-14) Blood Urea Nitrogen 14 mg/dL (8-26) Creatinine 0.8 mg/dL (0.7-1.3) Estimated GFR (Cockcroft-Gault) 101.5 BUN/Creatinine Ratio 18 (6-20) Glucose Level 183 mg/dL (70-99) H Calcium Level 8.4 mg/dL (8.5-10.1) L Total Bilirubin 0.4 mg/dL (0.2-1.0) Aspartate Amino Transferase (AST) 25 U/L (15-37) Alanine Aminotransferase (ALT) 13 U/L (16-63) L Alkaline Phosphatase 143 U/L (46-116) H Total Protein 7.0 g/dL (6.4-8.2) Albumin 1.0 g/dL (3.4-5.0) L Albumin/Globulin Ratio 0.2 (1.0-1.7) L Laboratory Tests 01/08/20 07:20 Laboratory Tests 01/08/20 07:20 PAT MOSHER MD Jan 08, 2020 09:14
[2020-01-08] MEDS ORDERED: SEVOFLURANE 31 TO 60 MINUTES. IH ONE (09:17)
[2020-01-08] MEDS: LINEZOLID 600 MG TABLET PO SCH ×2 (12:06→21:29)
[2020-01-08] MEDS: MICAFUNGIN 100 MG in IV DEXTROSE 5% 100ML 100 ML IV SCH (12:22)
[2020-01-08] MEDS: DAPTOmycin (GENERIC) IVPB 400 MG in IV NORMAL SALINE 50ML 50 ML IV SCH (13:00)
--- NOTE | 2020-01-08 15:08 | PDOC4 ---
Operative Note Operative Note Date of Procedure: January 08, 2020 Pre-Op Diagnosis: 1. Right index finger abscess of tendon sheath, right hand M65.041 2. Cutaneous abscesses of left hand L02.512 Post-Op Diagnosis: 1. Right index finger abscess of tendon sheath, right hand M65.041 2. Cutaneous abscesses of left hand L02.512 Procedure: 1. Right index finger, drainage of tendon sheath for flexor tenosynovitis, CPT 12461 2. Left ring finger and left little finger, Incision and drainage of abscesses; complicated or multiple CPT 64778 Surgeon: Jacqueline Burt MD Anesthesia: General EBL: 10 mL Specimens Obtained: swab cultures right index finger tendon sheath Complications: none Drains: none Tourniquet: 6 minutes at 275 mm Hg Findings: Flexor tenosynovitis of the right index finger, with peritendinous abscess on the volar aspect of the right index finger, tissue loss at the distal and middle phalanx of the radial aspect of the right index finger. The deep right index finger abscess extends from the middle phalanx through the proximal phalanx tissue. No obvious bone involvement. The left little finger and ring finger have superficial abscesses and incision, drainage and debridements were performed. Indications for Procedure: This 54 year old man has multiple severe medical problems including uncontrolled diabetes, multiple prior amputations, multiple cutaneous abscesses, and severe neuropathy such that he cannot feel his fingers. On the right index finger I suspect flexor tenosynovitis, and probable osteomyelitis. I'm not sure the finger is salvageable but the patient is not willing to proceed with amputation at this time. I recommended incision and drainage of the right index finger including the flexor tendon sheath, and more superficial debridements of the left ring and small finger which have drainage and superficial abscesses. The patient agrees with that plan. Procedure in Detail: The patient was identified in the preoperative holding area. The correct fingers were marked by me with a skin marker. The patient was taken to the operating room where general anesthetic was used. The patient was positioned supine on the operating table. Arm boards were used bilaterally. A tourniquet was applied to the right upper arm only. No tourniquet was needed on the left. The patient remains on scheduled antibiotics so no additional antibiotics were given. A timeout procedure was performed. Both limbs were prepared with Betadine, and circumferential prep was used. Limb drapes were used on bilateral arms. The right upper extremity was exsanguinated with an Esmarch bandage in the forearm only. The tourniquet was inflated to 275 mmHg. Initially I planned a Jerel type incision however there is extensive tissue loss and after careful intraoperative evaluation I felt that a midaxial incision on the radial aspect of the index finger was preferable. I extended the incision proximally from the open wound along the radial aspect with incision along the middle and proximal phalanges. The patient has absent light touch sensation, but care was made anyway not to injure the digital nerves. The flexor tendon sheath was exposed throughout the finger. Purulent drainage was noted, and cultures were taken. The flexor tendon sheath was incised along the radial aspect, and a small amount purulent drainage was noted. Most of the purulence is outside of the tendon sheath, in the palmar aspect of the soft tissues, similar to a felon abscess with pressure in the septations, but different location. Careful scissor dissection was used to break up the septations and loculations. Saline irrigation was used. Betadine lavage was used. Copious saline irrigation was used a final time. I changed my outer gloves.The tourniquet was released. Hemostasis was achieved without electrocautery. The incision was reapproximated carefully with #2-0 nylon simple interrupted sutures. There remains an area of tissue loss on the radial aspect centered at the distal interphalangeal joint, which is not able to be covered at this time. Xeroform sterile dressing and tube gauze were applied. The left hand was approached next. No tourniquet was used. A 15 blade scalpel was used to incise the area of abscesses. Rongeurs were used for excisional debridement of skin and subcutaneous tissue. There were multiple abscesses on the small finger and ring finger which were incised and then debrided. Saline irrigation was used. Betadine lavage was used. Copious saline irrigation was used a final time. Sterile dressings were applied. Needle and sponge counts were correct. There were no apparent complications. JACQUELINE BURT MD Jan 08, 2020 15:08
--- NOTE | 2020-01-08 16:56 | PDOC ---
Infectious Disease Note Subjective Subjective Known to service see consult not 11/24/19 and last progress note 11/30/19 Admitted from wound care with noncompliance and multiple wounds. No appetite despite available food. Finished zyvox but has not been on any other abx Problems started 2 plus weeks ago. Bumped right eye on wheel chair. s/p surgery Pain controlled Fever Tmax 100.3 Denies N/V/aches ROS ROS limited as patient is pretty sleepy and only answering few questions Vital Sign Vital Signs Vital Signs Date Time Temp Pulse Resp B/P (MAP) Pulse Ox O2 Delivery O2 Flow Rate FiO2 01/08/20 13:06 14 Room Air 01/08/20 10:30 90 131/75 98 01/08/20 09:16 99.2 10 99.2 Physical Exam PHYSICAL EXAM GENERAL: Resting quietly, appears comfortable HEENT: Right eye swollen with periorbial erythema. LUNGS: Clear bilaterally. HEART: S1, S2. ABDOMEN: Soft, nontender, positive bowel sounds. EXTREMITIES: Left below-knee amputation stump is well-healed, Jacob hand dressings dry SKIN: Multiple sores, boils mainly over the posterior scalp and superior scalp areas, NEUROLOGIC: Arouses to name, keeps eyes closed and answers few questions appropriately Labs Lab Laboratory Tests Test 01/07/20 18:35 01/07/20 20:10 01/08/20 07:20 01/08/20 09:27 Glucose (Fingerstick) 146 mg/dL (70-99) 116 mg/dL (70-99) 164 mg/dL (70-99) White Blood Count 21.3 x10^3/uL (4.0-11.0) Red Blood Count 3.13 x10^6/uL (4.30-5.70) Hemoglobin 8.5 g/dL (13.0-17.5) Hematocrit 26.7 % (39.0-53.0) Mean Corpuscular Volume 85 fL (79-100) Mean Corpuscular Hemoglobin 27 pg (25-35) Mean Corpuscular Hemoglobin Concent 32 g/dL (31-37) Red Cell Distribution Width 15.5 % (11.5-14.5) Platelet Count 541 x10^3/uL (140-400) Neutrophils (%) (Auto) 89 % (31-73) Lymphocytes (%) (Auto) 5 % (24-48) Monocytes (%) (Auto) 6 % (0-9) Eosinophils (%) (Auto) 0 % (0-3) Basophils (%) (Auto) 0 % (0-3) Neutrophils # (Auto) 18.9 x10^3/uL (1.8-7.7) Lymphocytes # (Auto) 1.1 x10^3/uL (1.0-4.8) Monocytes # (Auto) 1.2 x10^3/uL (0.0-1.1) Eosinophils # (Auto) 0.0 x10^3/uL (0.0-0.7) Basophils # (Auto) 0.1 x10^3/uL (0.0-0.2) Sodium Level 131 mmol/L (136-145) Potassium Level 3.9 mmol/L (3.5-5.1) Chloride Level 96 mmol/L (98-107) Carbon Dioxide Level 28 mmol/L (21-32) Anion Gap 7 (6-14) Blood Urea Nitrogen 14 mg/dL (8-26) Creatinine 0.8 mg/dL (0.7-1.3) Estimated GFR (Cockcroft-Gault) 101.5 BUN/Creatinine Ratio 18 (6-20) Glucose Level 183 mg/dL (70-99) Calcium Level 8.4 mg/dL (8.5-10.1) Total Bilirubin 0.4 mg/dL (0.2-1.0) Aspartate Amino Transf (AST/SGOT) 25 U/L (15-37) Alanine Aminotransferase (ALT/SGPT) 13 U/L (16-63) Alkaline Phosphatase 143 U/L (46-116) Total Protein 7.0 g/dL (6.4-8.2) Albumin 1.0 g/dL (3.4-5.0) Albumin/Globulin Ratio 0.2 (1.0-1.7) Test 01/08/20 11:19 Glucose (Fingerstick) 184 mg/dL (70-99) Orbit CT IMPRESSION: Extensive right facial and periorbital cellulitis with no evidence of orbital cellulitis. There is asymmetric thickening of the patient's right upper lip, of potential concern for an organizing fluid collection. Correlate with the clinical exam. MRI hand IMPRESSION: 1. Diffuse edema about the right index finger with associated T1 marrow signal changes within the proximal and middle phalanx meets MRI criteria for osteomyelitis. 2. 9 mm nodular subcutaneous soft tissue edema, possibly abscess or phlegmonous change, further delineation is limited without IV contrast. Consider ultrasound if clinically indicated Micro Microbiology 01/05/20 Anaerobic/Aerobic Culture, Resulted Pending 01/05/20 Anaerobic Culture Result 1 (BRADEN), Resulted Pending 01/05/20 Aerobic Culture - Final, Resulted 01/05/20 Aerobic Culture Result 1 (BRADEN) - Final, Resulted 01/05/20 Antimicrobic Susceptibility - Final, Resulted 01/05/20 Gram Stain - Final, Resulted 01/05/20 Gram Stain Result 1 (BRADEN) - Final, Resulted 01/05/20 Gram Stain Result 2 (BRADEN) - Final, Resulted Objective Assessment Multiple skin abscesses post scalp abscesses/Fingers. Top of scalp. + MRSA Flexor tenosynovitis of the right index finger with peritendinous abscess s/p I and D, 01/[address] Burt. MRI findings suggestive of osteo. ESR > 130 Left 4th & 5th finger abscesses s/p incision, drainage and debridements, 01/07 Leukocytosis Right periorbital cellulitis - s/p trauma 2 weeks ago. Has poor vision in right eye at baseline and has not changed. No gross swelling H/o MRSA Substance abuse. Admits smoking Meth because needs pain relief. 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 Diabetes mellitus poorly controlled. Peripheral neuropathy. SULFA ALLERGY, but states that he has been taking Bactrim. History of Clostridium difficile. History of MDRO infection including MRSA, Klebsiella, Enterococcus, Citrobacter, and group B strep. Status post left below-knee amputation. Plan Plan of Care Continue Dapto, po Zyvox, Meropenem and Micafungin Vfend not available Tobramycin gtts for eyes started 01/06- d/w pharmacy - only option with MRSA activity aside from Gent ointment which he will likely protest Monitor for abx toxicities. Last CK was 16 on 01/07 Probiotics f/u cultures Wound care per wound care Patient seen and examined. Chart reviewed in detail. Case discussed with MANAGER FAMILY, I agree with above plan. MAGGI NEWMAN APRN Jan 08, 2020 16:56 AGUSTIN NEWMAN MD Jan 08, 2020 22:43
[2020-01-08 19:00] VITALS: BP 136/73
[2020-01-08] MEDS: INSULIN GLARGINE SYRINGE. SQ SCH (21:42)
[2020-01-08 23:00] VITALS: BP 133/70
[2020-01-09] MEDS: IV NORMAL SALINE 1000ML BAG 1,000 ML IV SCH ×2 (01:29→13:51)
[2020-01-09 03:00] VITALS: BP 125/67
[2020-01-09] MEDS: oxyCODONE IR 5 MG TABLET PO PRN ×5 (03:35→22:34)
[2020-01-09] MEDS: MEROPENEM 1 GM in IV NORMAL SALINE 100ML 100 ML IV SCH ×3 (06:02→22:35)
[2020-01-09] MEDS: TOBRAMYCIN 0.3% OPHTH SOLUTION 5ML BOTTLE. OU SCH ×5 (06:03→22:38)
[2020-01-09 07:00] VITALS: BP 145/76
[2020-01-09] MEDS: ASPIRIN ENTERIC COATED 81 MG TABLET.DR. PO SCH (08:04)
[2020-01-09] MEDS: LINEZOLID 600 MG TABLET PO SCH ×2 (08:04→22:33)
[2020-01-09] MEDS: CLOPIDOGREL BISULFATE 75 MG TABLET PO SCH (08:04)
[2020-01-09] MEDS: LACTOBACILLUS RHAMNOSUS GG 1 CAPSULE. PO SCH ×2 (08:05→22:33)
[2020-01-09] MEDS: INSULIN LISPRO 300 UNITS/3 ML VIAL. SQ SCH ×3 (08:11→17:54)
[2020-01-09 10:59] VITALS: BP 142/70
--- NOTE | 2020-01-09 11:16 | PDOC ---
GENERAL General: vss and afebrile. awake and alert this am and talking about wanting to go home. right facial cellulitis definitely improved this am. hands bandaged. boils scalp and neck stable. chest clear, heart regular, abdomen benign. had a come to [facility] discussion regarding going home to take care of himself after dc or seriously consider hospice. this seemed to resonate with him but will see. VITAL SIGNS/I&O Vital Signs/I&O: Vital Signs Date Time Temp Pulse Resp B/P (MAP) Pulse Ox O2 Delivery O2 Flow Rate FiO2 01/09/20 10:59 97.9 84 17 142/70 (94) 94 Room Air 97.9 01/08/20 09:16 10 I & O 01/08/20 01/08/20 01/09/20 15:00 23:00 07:00 Intake Total 1000 ml 400 ml 400 ml Output Total 580 ml Balance 1000 ml -180 ml 400 ml ALLERGIES Allergies: Allergies Coded Allergies Type Severity Reaction Last Updated Verified sulfamethoxazole Allergy Intermediate Rash 01/08/20 Yes trimethoprim Allergy Intermediate Rash 01/08/20 Yes I S O L A T I O N *CONTACT* Allergy Unknown 01/08/20 Yes LAB Lab: Laboratory Tests Test 01/08/20 11:19 01/09/20 07:46 Glucose (Fingerstick) 184 mg/dL (70-99) H 266 mg/dL (70-99) H PAT MOSHER MD Jan 09, 2020 11:16
[2020-01-09] MEDS: MICAFUNGIN 100 MG in IV DEXTROSE 5% 100ML 100 ML IV SCH (12:19)
[2020-01-09] MEDS ORDERED: INSULIN LISPRO 300 UNITS/3 ML VIAL. SQ ONE (13:00)
[2020-01-09] MEDS: DAPTOmycin (GENERIC) IVPB 400 MG in IV NORMAL SALINE 50ML 50 ML IV SCH (13:50)
--- NOTE | 2020-01-09 14:25 | PDOC ---
Infectious Disease Note Subjective Subjective Says doesn't want to talk, tired wanting to sleep No fevers Vital Sign Vital Signs Vital Signs Date Time Temp Pulse Resp B/P (MAP) Pulse Ox O2 Delivery O2 Flow Rate FiO2 01/09/20 12:19 Room Air 01/09/20 10:59 97.9 84 17 142/70 (94) 94 97.9 01/08/20 09:16 10 Physical Exam PHYSICAL EXAM GENERAL: Lying down, awake in NAD HEENT: Right eye swelling and erythema improved LUNGS: Clear bilaterally. HEART: S1, S2. ABDOMEN: Soft, nontender, positive bowel sounds. EXTREMITIES: Left below-knee amputation stump is well-healed, Jacob hand dressings dry SKIN: Multiple sores, boils mainly over the posterior scalp and superior scalp areas, NEUROLOGIC: Awake, Labs Lab Laboratory Tests Test 01/09/20 07:46 01/09/20 12:10 Glucose (Fingerstick) 266 mg/dL (70-99) 357 mg/dL (70-99) Micro Microbiology 01/05/20 Anaerobic/Aerobic Culture, Resulted Pending 01/05/20 Anaerobic Culture Result 1 (BRADEN), Resulted Pending 01/05/20 Aerobic Culture - Final, Resulted 01/05/20 Aerobic Culture Result 1 (BRADEN) - Final, Resulted 01/05/20 Antimicrobic Susceptibility - Final, Resulted 01/05/20 Gram Stain - Final, Resulted 01/05/20 Gram Stain Result 1 (BRADEN) - Final, Resulted 01/05/20 Gram Stain Result 2 (BRADEN) - Final, Resulted Objective Assessment Multiple skin abscesses post scalp abscesses/Fingers. Top of scalp. + MRSA Flexor tenosynovitis of the right index finger with peritendinous abscess s/p I and D, 01/[address] Burt. MRI findings suggestive of osteo. ESR > 130 Left 4th & 5th finger abscesses s/p incision, drainage and debridements, 01/07 Leukocytosis Right periorbital cellulitis - s/p trauma 2 weeks ago. Has poor vision in right eye at baseline and has not changed. No gross swelling H/o MRSA Substance abuse. Admits smoking Meth because needs pain relief. 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 Diabetes mellitus poorly controlled. Peripheral neuropathy. SULFA ALLERGY, but states that he has been taking Bactrim. History of Clostridium difficile. History of MDRO infection including MRSA, Klebsiella, Enterococcus, Citrobacter, and group B strep. Status post left below-knee amputation. Plan Plan of Care Continue Dapto, po Zyvox, Meropenem and Micafungin Vfend not available Tobramycin gtts for eyes started 01/06- d/w pharmacy - only option with MRSA activity aside from Gent ointment which he will likely protest Monitor for abx toxicities. Last CK was 16 on 01/07 Probiotics f/u cultures Wound care per wound care Patient seen and examined. Chart reviewed in detail. Case discussed with CLASSIFIED AD CLERK. I agree with above plan. MAGGI NEWMAN APRN Jan 09, 2020 14:25 AGUSTIN NEWMAN MD Jan 09, 2020 19:25
[2020-01-09 15:04] VITALS: BP 136/68
[2020-01-09 19:00] VITALS: BP 135/62
[2020-01-09] MEDS: INSULIN GLARGINE SYRINGE. SQ SCH (22:35)
[2020-01-09 23:00] VITALS: BP 140/74
[2020-01-10 03:00] VITALS: BP 151/83
[2020-01-10] MEDS: IV NORMAL SALINE 1000ML BAG 1,000 ML IV SCH ×2 (04:42→09:15)
[2020-01-10] MEDS: TOBRAMYCIN 0.3% OPHTH SOLUTION 5ML BOTTLE. OU SCH ×5 (05:58→22:00)
[2020-01-10] MEDS: MEROPENEM 1 GM in IV NORMAL SALINE 100ML 100 ML IV SCH ×3 (05:58→22:03)
[2020-01-10 07:00] VITALS: BP 138/96
[2020-01-10 07:23] LABS: BASO # 0.1 x10^3/uL (0.0-0.2); BASO % 0 % (0-3); EOS # 0.1 x10^3/uL (0.0-0.7); EOS % 0 % (0-3); HEMATOCRIT 26.3 % (39.0-53.0); HEMOGLOBIN 8.5 g/dL (13.0-17.5); LYMPH # 1.2 x10^3/uL (1.0-4.8); LYMPH % 7 % (24-48); MEAN CORPUSCULAR HEMOGLOBIN 27 pg (25-35); MEAN CORPUSCULAR HGB CONC 32 g/dL (31-37); MEAN CORPUSCULAR VOLUME 85 fL (79-100); MONO # 0.8 x10^3/uL (0.0-1.1); MONO % 5 % (0-9); NEUT # 14.6 x10^3/uL (1.8-7.7); NEUT % 87 % (31-73); PLATELET COUNT 611 x10^3/uL (140-400); RED CELL DISTRIBUTION WIDTH 15.2 % (11.5-14.5); WHITE BLOOD COUNT 16.8 x10^3/uL (4.0-11.0)
[2020-01-10 07:28] LABS: ALBUMIN/GLOBULIN RATIO 0.2 (1.0-1.7); CALCIUM 8.4 mg/dL (8.5-10.1); CREATININE 0.8 mg/dL (0.7-1.3); GFR 101.5; POTASSIUM 4.3 mmol/L (3.5-5.1); TOTAL BILIRUBIN 0.2 mg/dL (0.2-1.0); TOTAL PROTEIN 6.7 g/dL (6.4-8.2)
[2020-01-10] MEDS: ASPIRIN ENTERIC COATED 81 MG TABLET.DR. PO SCH (09:31)
[2020-01-10] MEDS: LINEZOLID 600 MG TABLET PO SCH (09:31)
[2020-01-10] MEDS: LACTOBACILLUS RHAMNOSUS GG 1 CAPSULE. PO SCH ×2 (09:31→21:00)
[2020-01-10] MEDS: CLOPIDOGREL BISULFATE 75 MG TABLET PO SCH (09:31)
[2020-01-10] MEDS: INSULIN LISPRO 300 UNITS/3 ML VIAL. SQ SCH ×3 (09:41→17:21)
[2020-01-10] MEDS: oxyCODONE IR 5 MG TABLET PO PRN (09:43)
[2020-01-10 10:57] VITALS: BP 132/60
--- NOTE | 2020-01-10 11:47 | PDOC ---
Infectious Disease Note Subjective Subjective pt is feeling ok, wants to go home ROS ROS no n/v/d/sob Vital Sign Vital Signs Vital Signs Date Time Temp Pulse Resp B/P (MAP) Pulse Ox O2 Delivery O2 Flow Rate FiO2 01/10/20 10:57 98.2 93 20 132/60 (84) 95 Room Air 98.2 Physical Exam PHYSICAL EXAM GENERAL: Lying down, awake in NAD HEENT: Right eye swelling and erythema improved LUNGS: Clear bilaterally. HEART: S1, S2. ABDOMEN: Soft, nontender, positive bowel sounds. EXTREMITIES: Left below-knee amputation stump is well-healed, Jacob hand dressings dry SKIN: Multiple sores, boils mainly over the posterior scalp and superior scalp areas, NEUROLOGIC: Awake, Labs Lab Laboratory Tests Test 01/09/20 12:10 01/09/20 17:06 01/09/20 22:42 01/10/20 06:40 Glucose (Fingerstick) 357 mg/dL (70-99) 396 mg/dL (70-99) 266 mg/dL (70-99) White Blood Count 16.8 x10^3/uL (4.0-11.0) Red Blood Count 3.10 x10^6/uL (4.30-5.70) Hemoglobin 8.5 g/dL (13.0-17.5) Hematocrit 26.3 % (39.0-53.0) Mean Corpuscular Volume 85 fL (79-100) Mean Corpuscular Hemoglobin 27 pg (25-35) Mean Corpuscular Hemoglobin Concent 32 g/dL (31-37) Red Cell Distribution Width 15.2 % (11.5-14.5) Platelet Count 611 x10^3/uL (140-400) Neutrophils (%) (Auto) 87 % (31-73) Lymphocytes (%) (Auto) 7 % (24-48) Monocytes (%) (Auto) 5 % (0-9) Eosinophils (%) (Auto) 0 % (0-3) Basophils (%) (Auto) 0 % (0-3) Neutrophils # (Auto) 14.6 x10^3/uL (1.8-7.7) Lymphocytes # (Auto) 1.2 x10^3/uL (1.0-4.8) Monocytes # (Auto) 0.8 x10^3/uL (0.0-1.1) Eosinophils # (Auto) 0.1 x10^3/uL (0.0-0.7) Basophils # (Auto) 0.1 x10^3/uL (0.0-0.2) Sodium Level 127 mmol/L (136-145) Potassium Level 4.3 mmol/L (3.5-5.1) Chloride Level 95 mmol/L (98-107) Carbon Dioxide Level 31 mmol/L (21-32) Anion Gap 1 (6-14) Blood Urea Nitrogen 17 mg/dL (8-26) Creatinine 0.8 mg/dL (0.7-1.3) Estimated GFR (Cockcroft-Gault) 101.5 BUN/Creatinine Ratio 21 (6-20) Glucose Level 298 mg/dL (70-99) Calcium Level 8.4 mg/dL (8.5-10.1) Total Bilirubin 0.2 mg/dL (0.2-1.0) Aspartate Amino Transf (AST/SGOT) 27 U/L (15-37) Alanine Aminotransferase (ALT/SGPT) 17 U/L (16-63) Alkaline Phosphatase 130 U/L (46-116) Total Protein 6.7 g/dL (6.4-8.2) Albumin 1.0 g/dL (3.4-5.0) Albumin/Globulin Ratio 0.2 (1.0-1.7) Test 01/10/20 08:09 Glucose (Fingerstick) 302 mg/dL (70-99) Micro ANAEROBIC-AEROBIC CULTURE PENDING ANAEROBIC RES 1 PENDING AEROBIC CULT Final Preliminary report Final report AEROBIC RES 1 Final Staphylococcus aureus Comment 4+ Methicillin - resistant Staphylococcus aureus 4+ Based on resistance to oxacillin this isolate would be resistant to all currently available beta-lactam antimicrobial agents, with the exception of the newer cephalosporins with anti-MRSA activity, such as Ceftaroline This isolate does not demonstrate inducible clindamycin resistance in vitro by D test. ANTIMICROBIAL SUSCEPTIBILITY Final Comment S = Susceptible; I = Intermediate; R = Resistant P = Positive; N = Negative MICS are expressed in micrograms per mL Antibiotic RSLT#1 RSLT#2 RSLT#3 RSLT#4 Ciprofloxacin R>=8 Clindamycin S<=0.25 Erythromycin R>=8 Gentamicin S<=0.5 Levofloxacin R>=8 Linezolid S =2 Oxacillin R>=4 Penicillin R>=0.5 Rifampin S<=0.5 Tetracycline S<=1 Objective Assessment Multiple skin abscesses post scalp abscesses/Fingers. Top of scalp. + MRSA Flexor tenosynovitis of the right index finger with peritendinous abscess s/p I and D, 01/[address] Burt. MRI findings suggestive of osteo. ESR > 130 Left 4th & 5th finger abscesses s/p incision, drainage and debridements, 01/07 Leukocytosis Right periorbital cellulitis - s/p trauma 2 weeks ago. Has poor vision in right eye at baseline and has not changed. No gross swelling H/o MRSA Substance abuse. Admits smoking Meth because needs pain relief. 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 Diabetes mellitus poorly controlled. Peripheral neuropathy. SULFA ALLERGY, but states that he has been taking Bactrim. History of Clostridium difficile. History of MDRO infection including MRSA, Klebsiella, Enterococcus, Citrobacter, and group B strep. Status post left below-knee amputation. Plan Plan of Care Continue Dapto, , Meropenem Vfend not available Tobramycin gtts for eyes started 01/06- d/w pharmacy - only option with MRSA activity aside from Gent ointment which he will likely protest Monitor for abx toxicities. Last CK was 16 on 01/07 Probiotics f/u cultures Wound care per wound care Patient seen and examined. Chart reviewed in detail. Case discussed with TOWER ERECTOR. I agree with above plan. GAURI BECERRA MD Jan 10, 2020 11:47
[2020-01-10] MEDS: DAPTOmycin (GENERIC) IVPB 400 MG in IV NORMAL SALINE 50ML 50 ML IV SCH (12:25)
--- NOTE | 2020-01-10 13:00 | NUR ---
SW following. Discussed with RN. Pt on 3 IV abx, POD: 2 of I&D. PAT team consulted for meth use/abuse. SW will continue to follow.
[2020-01-10 15:00] VITALS: BP 145/68
--- NOTE | 2020-01-10 17:31 | PDOC ---
GENERAL General: vss and afebrile. awake and alert and pushing for dc. just wishes he could sometimes. exam stable. sugars still increased. eating much better. insulin doses adjusted. VITAL SIGNS/I&O Vital Signs/I&O: Vital Signs Date Time Temp Pulse Resp B/P (MAP) Pulse Ox O2 Delivery O2 Flow Rate FiO2 01/10/20 15:00 98.0 92 20 145/68 (93) 94 Room Air 98.0 01/10/20 12:19 10.0 I & O 01/09/20 01/09/20 01/10/20 15:00 23:00 07:00 Intake Total 600 ml 500 ml 300 ml Output Total 750 ml Balance 600 ml 500 ml -450 ml ALLERGIES Allergies: Allergies Coded Allergies Type Severity Reaction Last Updated Verified sulfamethoxazole Allergy Intermediate Rash 01/08/20 Yes trimethoprim Allergy Intermediate Rash 01/08/20 Yes I S O L A T I O N *CONTACT* Allergy Unknown 01/08/20 Yes MEDS Medications: Current Medications Medications (Trade) Dose Ordered Sig/Tory Route PRN Reason Start Time Stop Time Status Last Admin Dose Admin Insulin Human Lispro (HumaLOG) 20 units TIDWMEALS SQ 01/09/20 17:45 01/10/20 17:21 LAB Lab: Laboratory Tests Test 01/09/20 22:42 01/10/20 06:40 01/10/20 08:09 01/10/20 12:17 Glucose (Fingerstick) 266 mg/dL (70-99) H 302 mg/dL (70-99) H 182 mg/dL (70-99) H White Blood Count 16.8 x10^3/uL (4.0-11.0) H Red Blood Count 3.10 x10^6/uL (4.30-5.70) L Hemoglobin 8.5 g/dL (13.0-17.5) L Hematocrit 26.3 % (39.0-53.0) L Mean Corpuscular Volume 85 fL (79-100) Mean Corpuscular Hemoglobin 27 pg (25-35) Mean Corpuscular Hemoglobin Concent 32 g/dL (31-37) Red Cell Distribution Width 15.2 % (11.5-14.5) H Platelet Count 611 x10^3/uL (140-400) H Neutrophils (%) (Auto) 87 % (31-73) H Lymphocytes (%) (Auto) 7 % (24-48) L Monocytes (%) (Auto) 5 % (0-9) Eosinophils (%) (Auto) 0 % (0-3) Basophils (%) (Auto) 0 % (0-3) Neutrophils # (Auto) 14.6 x10^3/uL (1.8-7.7) H Lymphocytes # (Auto) 1.2 x10^3/uL (1.0-4.8) Monocytes # (Auto) 0.8 x10^3/uL (0.0-1.1) Eosinophils # (Auto) 0.1 x10^3/uL (0.0-0.7) Basophils # (Auto) 0.1 x10^3/uL (0.0-0.2) Sodium Level 127 mmol/L (136-145) L Potassium Level 4.3 mmol/L (3.5-5.1) Chloride Level 95 mmol/L (98-107) L Carbon Dioxide Level 31 mmol/L (21-32) Anion Gap 1 (6-14) L Blood Urea Nitrogen 17 mg/dL (8-26) Creatinine 0.8 mg/dL (0.7-1.3) Estimated GFR (Cockcroft-Gault) 101.5 BUN/Creatinine Ratio 21 (6-20) H Glucose Level 298 mg/dL (70-99) H Calcium Level 8.4 mg/dL (8.5-10.1) L Total Bilirubin 0.2 mg/dL (0.2-1.0) Aspartate Amino Transferase (AST) 27 U/L (15-37) Alanine Aminotransferase (ALT) 17 U/L (16-63) Alkaline Phosphatase 130 U/L (46-116) H Total Protein 6.7 g/dL (6.4-8.2) Albumin 1.0 g/dL (3.4-5.0) L Albumin/Globulin Ratio 0.2 (1.0-1.7) L Test 01/10/20 17:20 Glucose (Fingerstick) 175 mg/dL (70-99) H Laboratory Tests 01/10/20 06:40 Laboratory Tests 01/10/20 06:40 PAT MOSHER MD Jan 10, 2020 17:31
[2020-01-10 19:00] VITALS: BP 162/89
[2020-01-10] MEDS: INSULIN GLARGINE SYRINGE. SQ SCH (21:00)
[2020-01-10 23:00] VITALS: BP 114/81
[2020-01-11 03:00] VITALS: BP 146/77
[2020-01-11] MEDS: TOBRAMYCIN 0.3% OPHTH SOLUTION 5ML BOTTLE. OU SCH ×3 (06:00→14:00)
[2020-01-11] MEDS: MEROPENEM 1 GM in IV NORMAL SALINE 100ML 100 ML IV SCH (06:12)
[2020-01-11] MEDS: IV NORMAL SALINE 1000ML BAG 1,000 ML IV SCH ×3 (06:13→15:15)
[2020-01-11 07:00] VITALS: BP 141/71
[2020-01-11] MEDS: LACTOBACILLUS RHAMNOSUS GG 1 CAPSULE. PO SCH (08:36)
[2020-01-11] MEDS: CLOPIDOGREL BISULFATE 75 MG TABLET PO SCH (08:36)
[2020-01-11] MEDS: ASPIRIN ENTERIC COATED 81 MG TABLET.DR. PO SCH (08:36)
[2020-01-11] MEDS: INSULIN LISPRO 300 UNITS/3 ML VIAL. SQ SCH ×2 (08:43→12:25)
[2020-01-11] MEDS: oxyCODONE IR 5 MG TABLET PO PRN (09:10)
[2020-01-11 10:52] VITALS: BP 138/74
--- NOTE | 2020-01-11 11:54 | PDOC ---
Infectious Disease Note Subjective Subjective pt is feeling ok, wants to go home ROS ROS no n/v/d/sob Vital Sign Vital Signs Vital Signs Date Time Temp Pulse Resp B/P (MAP) Pulse Ox O2 Delivery O2 Flow Rate FiO2 01/11/20 10:52 98.6 92 18 138/74 (95) 95 Room Air 98.6 01/11/20 10:13 10.0 Physical Exam PHYSICAL EXAM GENERAL: Lying down, awake in NAD HEENT: Right eye swelling and erythema improved LUNGS: Clear bilaterally. HEART: S1, S2. ABDOMEN: Soft, nontender, positive bowel sounds. EXTREMITIES: Left below-knee amputation stump is well-healed, Jacob hand dressings dry SKIN: Multiple sores, boils mainly over the posterior scalp and superior scalp areas, NEUROLOGIC: Awake, Labs Lab Laboratory Tests Test 01/10/20 12:17 01/10/20 17:20 01/10/20 20:46 01/11/20 07:50 Glucose (Fingerstick) 182 mg/dL (70-99) 175 mg/dL (70-99) 83 mg/dL (70-99) 189 mg/dL (70-99) Micro ANAEROBIC-AEROBIC CULTURE PENDING ANAEROBIC RES 1 PENDING AEROBIC CULT Final Preliminary report Final report AEROBIC RES 1 Final Staphylococcus aureus Comment 4+ Methicillin - resistant Staphylococcus aureus 4+ Based on resistance to oxacillin this isolate would be resistant to all currently available beta-lactam antimicrobial agents, with the exception of the newer cephalosporins with anti-MRSA activity, such as Ceftaroline This isolate does not demonstrate inducible clindamycin resistance in vitro by D test. ANTIMICROBIAL SUSCEPTIBILITY Final Comment S = Susceptible; I = Intermediate; R = Resistant P = Positive; N = Negative MICS are expressed in micrograms per mL Antibiotic RSLT#1 RSLT#2 RSLT#3 RSLT#4 Ciprofloxacin R>=8 Clindamycin S<=0.25 Erythromycin R>=8 Gentamicin S<=0.5 Levofloxacin R>=8 Linezolid S =2 Oxacillin R>=4 Penicillin R>=0.5 Rifampin S<=0.5 Tetracycline S<=1 Objective Assessment Multiple skin abscesses post scalp abscesses/Fingers. Top of scalp. + MRSA Flexor tenosynovitis of the right index finger with peritendinous abscess s/p I and D, 01/[address] Burt. MRI findings suggestive of osteo. ESR > 130 Left 4th & 5th finger abscesses s/p incision, drainage and debridements, / Leukocytosis Right periorbital cellulitis - s/p trauma 2 weeks ago. Has poor vision in right eye at baseline and has not changed. No gross swelling H/o MRSA Substance abuse. Admits smoking Meth because needs pain relief. 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 Diabetes mellitus poorly controlled. Peripheral neuropathy. SULFA ALLERGY, but states that he has been taking Bactrim. History of Clostridium difficile. History of MDRO infection including MRSA, Klebsiella, Enterococcus, Citrobacter, and group B strep. Status post left below-knee amputation. Plan Plan of Care all wounds are better, rt index finger still concerning pt wants to go home, ok to d/c on zyvox d/w pt in detail, f/u with wound care, surgery and with me pt may need further surgery on finger d/w father at bedside cont wound care GAURI BECERRA MD Jan 11, 2020 11:54
[2020-01-11] MEDS ORDERED: LINEZOLID 600 MG TABLET PO SCH (12:00)
--- NOTE | 2020-01-11 12:39 | NUR ---
SW following. Discussed with RN. PAT team cleared pt. Pt did not want any services from PAT team and did not want to speak with PAT team regarding meth use. Pt discharging home with self care on oral zyvox. No further SW needs.
[2020-01-11 14:39] VITALS: BP 132/70
--- NOTE | 2020-01-11 16:24 | NUR ---
Wound Care: Follow up with patient known to clinic. I&D on Friday01/10/2020 to RFA and R index finger (Sutures present). All wounds pictured and measured, pt to DC today. R index finger sutured, periwound dark red, indurated, and swollen. Iodoflex, gauze and kerlix applied. RFA open incision s/p I&D, wound red, indurated, and swollen, packed with 1/4" iodoform gauze, ABD and kerlix. L hand wounds red and swollen, dressed with xeroform, gauze and kerlix. Parietal MRSA wound slough/eschar covered, reddened periwound, swelling and induration; painted with betadine and left PILAR. Neck wound red, indurated and swollen, slough covered; painted with betadine and left PILAR. Instructed pt to leave dressings on until follow up in clinic on 01/13/2020
--- NOTE | 2020-01-11 16:24 | NUR ---
Discharge Note: INO DONOHUE [facility] Discharge instructions and discharge home medications reviewed with Patient and a copy given. All questions have been answered and understanding verbalized. The following instructions and handouts were given: Abscess Discontinued lines and drains: Peripheral IV intact. Patient discharged to Home or Self Care with Family Member via Wheelchair
== END 2020-01-11 16:25 | disposition home or self-care (01) | DRG 853 ==
LOC: 5 SOUTH 12:18
PROVIDERS: ADMIT Family Medicine; ATTEND Family Medicine
PROC: 0JBK0ZZ Excision of Left Hand Subcutaneous Tissue and Fascia, Open Approach (ICD-10-PCS; 2020-01-08)
PROC: 0JBJ0ZZ Excision of Right Hand Subcutaneous Tissue and Fascia, Open Approach (ICD-10-PCS; 2020-01-08)
PROC: 0L970ZZ Drainage of Right Hand Tendon, Open Approach (ICD-10-PCS; principal; 2020-01-08 08:00)
DX: A41.9 Sepsis, unspecified organism (principal); E43 Unspecified severe protein-calorie malnutrition; L02.511 Cutaneous abscess of right hand; L03.213 Periorbital cellulitis; L02.811 Cutaneous abscess of head [any part, except face]; E87.1 Hypo-osmolality and hyponatremia; L02.413 Cutaneous abscess of right upper limb; L02.512 Cutaneous abscess of left hand; E11.65 Type 2 diabetes mellitus with hyperglycemia; E78.5 Hyperlipidemia, unspecified; F17.200 Nicotine dependence, unspecified, uncomplicated; G89.29 Other chronic pain; I10 Essential (primary) hypertension; I25.10 Atherosclerotic heart disease of native coronary artery without angina pectoris; F32.9 Major depressive disorder, single episode, unspecified; F41.9 Anxiety disorder, unspecified; E11.42 Type 2 diabetes mellitus with diabetic polyneuropathy; F19.10 Other psychoactive substance abuse, uncomplicated; M65.841 Other synovitis and tenosynovitis, right hand; E11.51 Type 2 diabetes mellitus with diabetic peripheral angiopathy without gangrene; M54.16 Radiculopathy, lumbar region; Z82.49 Family history of ischemic heart disease and other diseases of the circulatory system; Z86.14 Personal history of Methicillin resistant Staphylococcus aureus infection; Z86.19 Personal history of other infectious and parasitic diseases; Z88.2 Allergy status to sulfonamides; Z89.512 Acquired absence of left leg below knee; Z91.19 Patient's noncompliance with other medical treatment and regimen; B95.8 Unspecified staphylococcus as the cause of diseases classified elsewhere
CPT/HCPCS: 36415; 70481; 73218; 80053; 80202; 80307; 82550; 82962; 85007; 85025; 85651; 87071; 87075; 87186; A7015; J0878; J1100; J1815; J2001; J2185; J2248; J2405; J2543; J2704; J3370; J7030; J7040; J7050; J7120; Q9967; A4461; G0378

== ENCOUNTER 2020-02-04 14:34 | Inpatient (IN) | payer MEDICARE ==
[~2020-02-04] VITALS: Ht 180.3 cm; Wt 55.0 kg
--- NOTE | 2020-02-04 15:16 | PHYS DOC ---
Past Medical History Past Medical History: Anxiety, Diabetes-Type II, Hypertension, Other Additional Past Medical Histor: MRSA, STAPH, BLIND R EYE Past Surgical History: Other Additional Past Surgical Histo: BACK, L. HAND, VASCULAR SURGERY, R. GREAT TOE AMPUTATION, R EYE Smoking Status: Current Every Day Smoker Alcohol Use: None Drug Use: None Adult General Chief Complaint Chief Complaint: CELLULITIS HPI HPI Patient is a 54 year old male who presents with new wounds to the head and increasing weakness. Dad states that the patient has not been out of bed in 4 days. States that he is recently had surgery on his head due to cellulitis by Dr. Rosario. The patient is not running fevers, but did state that he fell and hit his right leg and is having pain to the right leg. His pain is 8 out of 10 in severity and sharp. Complete ROS were reviewed and found to be within normal limits, except as documented in the HPI Current Medications Current Medications Current Medications Medications (Trade) Dose Ordered Sig/Tory Start Time Stop Time Status Last Admin Dose Admin Cefepime HCl (Maxipime) 2 gm 1X ONCE 02/04/20 16:15 02/04/20 16:20 DC 02/04/20 17:29 2 GM Ondansetron HCl (Zofran) 4 mg PRN Q8HRS PRN 02/04/20 16:30 02/05/20 16:29 Sodium Chloride 1,000 ml @ 100 mls/hr Q10H 02/04/20 16:22 02/05/20 16:21 Vancomycin HCl 1.5 gm/Sodium Chloride 500 ml @ 250 mls/hr 1X ONCE 02/04/20 16:15 02/04/20 18:14 02/04/20 17:29 250 MLS/HR Allergies Allergies Allergies Coded Allergies Type Severity Reaction Last Updated Verified sulfamethoxazole Allergy Intermediate Rash 01/21/20 Yes trimethoprim Allergy Intermediate Rash 01/21/20 Yes I S O L A T I O N *CONTACT* Allergy Unknown 01/21/20 Yes Physical Exam Physical Exam Constitutional: Well developed, well nourished, no acute distress, non-toxic appearance. [] HENT: Normocephalic, atraumatic, bilateral external ears normal, oropharynx moist, no oral exudates, nose normal. [] Skin: Scattered wound on scalp. Extremities: Tenderness to R femur with bruising. Edema to R knee. Neurologic: Alert and oriented X 3, normal motor function, normal sensory function, no focal deficits noted. [] Psychologic: Affect normal, judgement normal, mood normal. [] Current Patient Data Vital Signs Vital Signs Date Time Temp Pulse Resp B/P (MAP) Pulse Ox O2 Delivery O2 Flow Rate FiO2 02/04/20 15:25 98.1 106 18 113/58 (76) 98 Room Air 98.1 Lab Values Laboratory Tests Test 02/04/20 15:26 White Blood Count 11.7 x10^3/uL (4.0-11.0) H Red Blood Count 3.68 x10^6/uL (4.30-5.70) L Hemoglobin 10.1 g/dL (13.0-17.5) L Hematocrit 30.8 % (39.0-53.0) L Mean Corpuscular Volume 84 fL (79-100) Mean Corpuscular Hemoglobin 27 pg (25-35) Mean Corpuscular Hemoglobin Concent 33 g/dL (31-37) Red Cell Distribution Width 16.9 % (11.5-14.5) H Platelet Count 333 x10^3/uL (140-400) Neutrophils (%) (Auto) 85 % (31-73) H Lymphocytes (%) (Auto) 10 % (24-48) L Monocytes (%) (Auto) 5 % (0-9) Eosinophils (%) (Auto) 0 % (0-3) Basophils (%) (Auto) 1 % (0-3) Neutrophils # (Auto) 9.9 x10^3/uL (1.8-7.7) H Lymphocytes # (Auto) 1.1 x10^3/uL (1.0-4.8) Monocytes # (Auto) 0.6 x10^3/uL (0.0-1.1) Eosinophils # (Auto) 0.0 x10^3/uL (0.0-0.7) Basophils # (Auto) 0.1 x10^3/uL (0.0-0.2) Sodium Level 128 mmol/L (136-145) L Potassium Level 4.5 mmol/L (3.5-5.1) Chloride Level 92 mmol/L (98-107) L Carbon Dioxide Level 33 mmol/L (21-32) H Anion Gap 3 (6-14) L Blood Urea Nitrogen 20 mg/dL (8-26) Creatinine 0.9 mg/dL (0.7-1.3) Estimated GFR (Cockcroft-Gault) 88.6 BUN/Creatinine Ratio 22 (6-20) H Glucose Level 303 mg/dL (70-99) H Lactic Acid Level 1.7 mmol/L (0.4-2.0) Calcium Level 9.0 mg/dL (8.5-10.1) Total Bilirubin 0.5 mg/dL (0.2-1.0) Aspartate Amino Transferase (AST) 19 U/L (15-37) Alanine Aminotransferase (ALT) 17 U/L (16-63) Alkaline Phosphatase 143 U/L (46-116) H Total Protein 7.6 g/dL (6.4-8.2) Albumin 1.8 g/dL (3.4-5.0) L Albumin/Globulin Ratio 0.3 (1.0-1.7) L Laboratory Tests 02/04/20 15:26 Laboratory Tests 02/04/20 15:26 EKG EKG [] Radiology/Procedures Radiology/Procedures [][facility] [address] [place], [place] [id number] IMAGING REPORT Signed PATIENT: INO DONOHUE DACCOUNT: [id number] : 1965 LOCATION: ER AGE: 54 SEX: M EXAM STATUS: REG ER ORD. PHYSICIAN: ALPHONSO COLVIN APRN REASON: fall, femur tenderness PROCEDURE: RIGHT FEMUR XRAY Study: RIGHT FEMUR XRAY Indication: Fall. Femur tenderness. Comparison: None. Findings: No acute femur fracture is identified. Maintained alignment at the hip and knee joints. Mild hip arthrosis and incompletely evaluated but suspected mild to moderate knee joint arthrosis. Chondrocalcinosis seen at the knee as well as a knee joint effusion. Vascular calcifications. Surgical clips project over the right hip. Impression: No acute fracture. Incidental note made of a knee joint effusion in the setting of mild/moderate arthrosis. Chronic observations as above. Electronically signed by: PASHA JONES MD (02/04/2020 3:47 PM) [id number] DICTATED and SIGNED BY: PASHA JONES MD DATE: 02/04/20 1547 Course & Med Decision Making Course & Med Decision Making Pertinent Labs and Imaging studies reviewed. (See chart for details) Patient appears to have cellulitis to his head, and also has pain to his right leg will get an x-ray, and will get labs. We will page Dr. Lima for admission. We will also page Dr. Lyons to get recomme ndations for antibiotics. Discussed with Dr. Lyons who recommends vancomycin and cefepime. Dr. Lima accepts admission. Dragon Disclaimer Dragon Disclaimer This electronic medical record was generated, in whole or in part, using a voice recognition dictation system. Departure Departure Impression: Primary Impression: Cellulitis Additional Impressions: Failure of outpatient treatment Weakness generalized Hyponatremia Hyperglycemia Disposition: ADMITTED INPATIENT Admitting Physician: Pat Lima Condition: STABLE Referrals: PAT LIMA MD (PCP) Problem Qualifiers ALPHONSO COLVIN APRN Feb 04, 2020 15:16
[2020-02-04 15:40] LABS: BASO # 0.1 x10^3/uL (0.0-0.2); BASO % 1 % (0-3); EOS % 0 % (0-3); HEMATOCRIT 30.8 % (39.0-53.0); HEMOGLOBIN 10.1 g/dL (13.0-17.5); LYMPH # 1.1 x10^3/uL (1.0-4.8); LYMPH % 10 % (24-48); MEAN CORPUSCULAR HEMOGLOBIN 27 pg (25-35); MEAN CORPUSCULAR HGB CONC 33 g/dL (31-37); MEAN CORPUSCULAR VOLUME 84 fL (79-100); MONO # 0.6 x10^3/uL (0.0-1.1); MONO % 5 % (0-9); NEUT # 9.9 x10^3/uL (1.8-7.7); NEUT % 85 % (31-73); PLATELET COUNT 333 x10^3/uL (140-400); RED BLOOD COUNT 3.68 x10^6/uL (4.30-5.70); RED CELL DISTRIBUTION WIDTH 16.9 % (11.5-14.5); WHITE BLOOD COUNT 11.7 x10^3/uL (4.0-11.0)
--- NOTE | 2020-02-04 15:50 | RAD ---
Study: RIGHT FEMUR XRAY Indication: Fall. Femur tenderness. Comparison: None. Findings: No acute femur fracture is identified. Maintained alignment at the hip and knee joints. Mild hip arthrosis and incompletely evaluated but suspected mild to moderate knee joint arthrosis. Chondrocalcinosis seen at the knee as well as a knee joint effusion. Vascular calcifications. Surgical clips project over the right hip. Impression: No acute fracture. Incidental note made of a knee joint effusion in the setting of mild/moderate arthrosis. Chronic observations as above. Electronically signed by: PASHA JONES MD (02/04/2020 3:47 PM) [id number]
[2020-02-04 15:52] LABS: CREATININE 0.9 mg/dL (0.7-1.3); GFR 88.6; POTASSIUM 4.5 mmol/L (3.5-5.1)
[2020-02-04 15:58] LABS: ALBUMIN 1.8 g/dL (3.4-5.0); ALBUMIN/GLOBULIN RATIO 0.3 (1.0-1.7); TOTAL BILIRUBIN 0.5 mg/dL (0.2-1.0); TOTAL PROTEIN 7.6 g/dL (6.4-8.2)
[2020-02-04] MEDS ORDERED: VANCOMYCIN 1.5 GM in IV NORMAL SALINE 500ML BAG 500 ML IV ONE (16:15)
[2020-02-04] MEDS ORDERED: CEFEPIME HCL IV Push 2 GM VIAL. IVP ONE (16:15)
[2020-02-04] MEDS ORDERED: IV NORMAL SALINE 1000ML BAG 1,000 ML IV ONE (16:30)
[2020-02-04] MEDS ORDERED: ONDANSETRON PF 4 MG/2 ML VIAL. IV PRN (16:30)
[2020-02-04 19:00] VITALS: BP 132/73
[2020-02-04] MEDS: IV NORMAL SALINE 1000ML BAG 1,000 ML IV SCH (20:26)
[2020-02-04] MEDS: oxyCODONE IR 5 MG TABLET PO PRN (20:26)
[2020-02-04] MEDS: INSULIN GLARGINE SYRINGE. SQ SCH (21:49)
[2020-02-04] MEDS: CENEGERMIN BKBJ OS SCH (22:00)
[2020-02-04 23:00] VITALS: BP 130/76
[2020-02-05] MEDS ORDERED: C.DIFF MED SCREEN BY RX. MC ONE (00:30)
[2020-02-05] MEDS: IV NORMAL SALINE 1000ML BAG 1,000 ML IV SCH ×2 (02:22→12:22)
[2020-02-05] MEDS: CENEGERMIN BKBJ OS SCH ×6 (07:00→21:32)
[2020-02-05] MEDS: ASPIRIN ENTERIC COATED 81 MG TABLET.DR. PO SCH (08:00)
[2020-02-05] MEDS: INSULIN LISPRO 300 UNITS/3 ML VIAL. SQ SCH ×3 (08:00→17:00)
[2020-02-05] MEDS: oxyCODONE IR 5 MG TABLET PO PRN ×3 (09:10→20:40)
[2020-02-05 11:00] VITALS: BP 127/71
--- NOTE | 2020-02-05 11:32 | NUR ---
All am meds are charted on paper MARS in the chart. Am assessments also in the chart on paper.
--- NOTE | 2020-02-05 12:23 | PDOC ---
Infectious Disease Note Subjective Subjective Vital Sign Vital Signs Vital Signs Date Time Temp Pulse Resp B/P (MAP) Pulse Ox O2 Delivery O2 Flow Rate FiO2 02/04/20 23:00 98.4 106 18 130/76 (94) 96 Room Air 98.4 Labs Lab Laboratory Tests Test 02/04/20 15:26 02/04/20 21:43 02/05/20 07:57 White Blood Count 11.7 x10^3/uL (4.0-11.0) Red Blood Count 3.68 x10^6/uL (4.30-5.70) Hemoglobin 10.1 g/dL (13.0-17.5) Hematocrit 30.8 % (39.0-53.0) Mean Corpuscular Volume 84 fL (79-100) Mean Corpuscular Hemoglobin 27 pg (25-35) Mean Corpuscular Hemoglobin Concent 33 g/dL (31-37) Red Cell Distribution Width 16.9 % (11.5-14.5) Platelet Count 333 x10^3/uL (140-400) Neutrophils (%) (Auto) 85 % (31-73) Lymphocytes (%) (Auto) 10 % (24-48) Monocytes (%) (Auto) 5 % (0-9) Eosinophils (%) (Auto) 0 % (0-3) Basophils (%) (Auto) 1 % (0-3) Neutrophils # (Auto) 9.9 x10^3/uL (1.8-7.7) Lymphocytes # (Auto) 1.1 x10^3/uL (1.0-4.8) Monocytes # (Auto) 0.6 x10^3/uL (0.0-1.1) Eosinophils # (Auto) 0.0 x10^3/uL (0.0-0.7) Basophils # (Auto) 0.1 x10^3/uL (0.0-0.2) Sodium Level 128 mmol/L (136-145) Potassium Level 4.5 mmol/L (3.5-5.1) Chloride Level 92 mmol/L (98-107) Carbon Dioxide Level 33 mmol/L (21-32) Anion Gap 3 (6-14) Blood Urea Nitrogen 20 mg/dL (8-26) Creatinine 0.9 mg/dL (0.7-1.3) Estimated GFR (Cockcroft-Gault) 88.6 BUN/Creatinine Ratio 22 (6-20) Glucose Level 303 mg/dL (70-99) Lactic Acid Level 1.7 mmol/L (0.4-2.0) Calcium Level 9.0 mg/dL (8.5-10.1) Total Bilirubin 0.5 mg/dL (0.2-1.0) Aspartate Amino Transf (AST/SGOT) 19 U/L (15-37) Alanine Aminotransferase (ALT/SGPT) 17 U/L (16-63) Alkaline Phosphatase 143 U/L (46-116) Total Protein 7.6 g/dL (6.4-8.2) Albumin 1.8 g/dL (3.4-5.0) Albumin/Globulin Ratio 0.3 (1.0-1.7) Glucose (Fingerstick) 334 mg/dL (70-99) 191 mg/dL (70-99) Objective Assessment Recurrent scalp abscess -h/o I and D, 01/18. MRSA Leukocytosis h/o flexor tenosynovitis of the right index finger with peritendinous abscess/osteo s/p I and D, 01/[address] Burt. MRSA h/o left 4th & 5th finger abscesses s/p I and D, 01/08 Diabetes mellitus poorly controlled. Severe peripheral neuropathy with multiple injuries and wilson SULFA ALLERGY History of Clostridium difficile. History of MDRO infection including MRSA, Klebsiella, Enterococcus, Citrobacter, and group B strep. Status post left below-knee amputation. Plan Plan of Care vancomycin and Cefepime Awaiting gen surgery evaluation f/u cultures Local wound care Contact isolation D/w nursing Thank you [id number] Patients case also reviewed with PONY EDGER on 02/05/2020- No computer access on that date MAGGI NEWMAN APRN Feb 05, 2020 12:23 AGUSTIN NEWMAN MD Feb 06, 2020 21:47
--- NOTE | 2020-02-05 13:07 | CONS ---
DATE OF CONSULTATION: 02/05/2020 Referred by Edilberto Sweeney APRN. REASON FOR CONSULTATION: Cellulitis. HISTORY OF PRESENT ILLNESS: This patient is a 54-year-old male with a history of poorly controlled diabetes, peripheral vascular disease and multiple soft tissue skin infections. He has had multiple admissions within the last several months for abscesses involving scalp and fingers associated with MRSA. He returned with complaints of generalized weakness, fatigue, and not feeling well. He says the scalp wound has been draining. He denies fevers, chills, sweats or body aches. General Surgery has been consulted. He is now on vancomycin and cefepime. PAST MEDICAL HISTORY: 1. Scalp abscess, status post I and D 01/18/2020 with growth of MRSA. 2. Flexor tenosynovitis of the right index finger with peritendinous abscess/osteomyelitis status post I and D 01/08 with growth of MRSA. 3. Poorly controlled diabetes. 4. Peripheral neuropathy. 5. Peripheral arterial disease. 6. Hyperlipidemia. 7. Hypertension. 8. Attention deficit disorder. 9. Depression. 10. Anxiety. 11. History of Clostridium difficile. 12. Coronary artery disease. 13. Chronic lumbar radiculopathy. 14. History of previous multidrug-resistant Staphylococcus aureus, Klebsiella, Enterococcus, Citrobacter, and group B strep infections. PAST SURGICAL HISTORY: Multiple I and Ds of the back, right index finger and left fourth and fifth fingers for abscesses. Right third finger amputation, left BKA, right femoral endarterectomy, right femoral popliteal thrombectomy, right first and second toe amputation, back surgery. SOCIAL HISTORY: The patient lives at home. He is a current smoker. History of meth use. ALLERGIES: SULFAMETHIZOLE/TRIMETHOPRIM. MEDICATIONS: Vancomycin, cefepime, and other medications are available and have been reviewed on the JAN. REVIEW OF SYSTEMS: Per HPI, otherwise all other review of systems are negative. PHYSICAL EXAMINATION: VITAL SIGNS: Temperature is 98.4, blood pressure 130/76, heart rate 106, respiratory rate 18, pulse oximetry is 96% on room air. GENERAL: The patient is resting quietly, arouses to name, weak and thin-appearing. HEENT: Right eye cataract. Oropharynx pink and dry. No lesions seen. In dentures. Two fairly large scalp wounds, scabbed with purulent drainage and mild erythema. NECK: Supple. LUNGS: Clear to auscultation. HEART: S1, S2. ABDOMEN: Nondistended, soft, nontender with bowel sounds present. EXTREMITIES: Previous left BKA. Right index finger wound healing, dry scab, couple sutures still in place. Left fifth finger wound also scabs, no signs of infection. SKIN: Warm to touch. No signs of rash. NEUROLOGIC: Arouses to name, answers questions appropriately, but falls asleep easily. LABORATORY DATA: On admission, WBC was 11.7, hemoglobin 10.1, platelets 333,000. Sodium 128, potassium 4.5, creatinine 0.9, BUN 20, glucose 303. Lactic acid 1.7, total bilirubin 0.5, AST 19, ALT 17, albumin 1.8. Blood and urinalysis pending. Right femur x-ray showed no acute fracture, incidental note made of knee joint effusion in the setting of mild/moderate arthrosis. IMPRESSION: 1. Recurrent scalp abscess. 2. Leukocytosis. 3. History of flexor tenosynovitis of the right index finger with abscess/osteomyelitis, status post incision and drainage 01/08, methicillin-resistant Staphylococcus aureus. 4. History of left fourth and fifth finger abscesses, status post incision and drainage 01/08. 5. Diabetes, poorly controlled. 6. Severe peripheral neuropathy with history of multiple injuries and wilson. 7. SULFA ALLERGY. 8. History of Clostridium difficile. 9. History of multidrug resistant organism infection including methicillin-resistant Staphylococcus aureus, Klebsiella, Enterococcus, Citrobacter, and group B strep. PLAN: 1. Continue vancomycin and cefepime. 2. Awaiting General Surgery evaluation. 3. We will follow up on culture results. 4. Monitor renal function closely. 5. Local wound care. 6. Contact isolation. 7. Discussed with nursing. Thank you Edilberto Sweeney APRN for asking us to participate in this patient's care. Should you have further questions or concerns, please call. AGUSTIN NEWMAN MD DR: FRANKIE/denise JOB#: [id number] / [id number]
[2020-02-05 13:43] LABS: CLARITY,URINE CLEAR; COLOR,URINE YELLOW
[2020-02-05 13:44] LABS: BILIRUBIN,URINE NEGATIVE (NEG); PROTEIN,URINE 100 mg/dL (NEG-TRACE)
[2020-02-05 13:45] LABS: BACTERIA,URINE FEW /HPF (0-FEW); HYALINE CASTS, URINE MODERATE /HPF; NITRITE,URINE NEGATIVE (NEG); RBC,URINE >40 /HPF (0-2); SQUAMOUS EPITHELIAL CELL,UR MOD /LPF; UROBILINOGEN,URINE 0.2 mg/dL (0.2 mg/dL)
[2020-02-05 13:46] LABS: GRANULAR CASTS,URINE MODERATE /HPF; WAXY CASTS,URINE FEW /HPF
--- NOTE | 2020-02-05 14:17 | HP ---
ADMIT DATE: 02/04/2020 CHIEF COMPLAINT AND HISTORY OF PRESENT ILLNESS: This 54-year-old white male is well known to me in followup in the office. The patient was brought to the Emergency Room by his father on the day of admission with his inability to get out of bed for the last 4 or so days prior to admission. He states he had dropped a can of vegetables on his thigh and would not hurt initially, but then his right leg became so painful he was unable to walk on it. He denies any fevers with this. Feels like his head is about the same where the cellulitis is, but is completely disabled from the right leg pain, which on description is anywhere from the hip down to the foot. There is no numbness or tingling or radicular nature to the pain. He is tender over the mid thigh where there is some bruising over this can of vegetables fell on him. He has exquisite pain with any attempted range of motion of the leg. He did have a femur x-ray showing no fracture in the Emergency Room. 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 PAST SURGICAL HISTORY: He has had a prior [id number] amputation on the left. He has had hand surgery, right great toe amputation, right eye surgeries. MEDICATIONS: Brought with the patient, listed on the computer and have been addressed as are allergies. SOCIAL HISTORY: Continues to smoke, does not abuse alcohol. Claims of not doing any drugs. FAMILY HISTORY: Noncontributory. REVIEW OF SYSTEMS: As mentioned above. PHYSICAL EXAMINATION: GENERAL: He is a well-developed, well-nourished white male lying in bed, relatively comfortable when I mess with his leg. VITAL SIGNS: Stable. He is afebrile. HEAD, EYES, EARS, NOSE AND THROAT: Unremarkable except for blindness in the right eye and clouding of the cornea. NECK: Supple, without adenopathy or thyromegaly. CHEST: Clear to auscultation and percussion. HEART: Regular rate and rhythm without S3, S4 or murmur. ABDOMEN: Soft, nontender, without hepatosplenomegaly or masses. EXTREMITIES: Reveal the left [id number] amputation and the mild bruising and exquisite tenderness of the leg with any sort of range of motion. NEUROLOGIC: Nonfocal. LABORATORY DATA: Initial white count is 11,700, hemoglobin is 10. He does have a left shift present. Platelet count is 333,000. BUN is 20, creatinine 0.9. Sodium is low at 128. Blood sugar on admission was elevated at 303. Lactic acid is normal. Again, right femur x-ray is negative for any fracture, but does show some knee joint effusion in the setting of moderate osteoarthritis of the right knee. IMPRESSION: 1. Right leg pain with inability to walk from uncertain etiology. 2. Cellulitis of the scalp, stable to slightly improved. 3. Hyponatremia. 4. Hyperglycemia. 5. Multiple other problems listed above. PLAN: The patient has been admitted. ID has been consulted. IV antibiotics are ongoing. Ortho will be consulted for the leg pain and the patient will be monitored, managed and treated appropriately. PAT MOSHER MD DR: MEHRAN/denise JOB#: [id number] / [id number]
[2020-02-05] MEDS: VANCOMYCIN PER PHARMACY MC PRN (14:51)
--- NOTE | 2020-02-05 14:57 | NUR ---
Pharmacy Vancomycin Dosing Note S:Consulted to monitor and dose vancomycin started 02/05/20. O:INO DONOHEU is a 54 year old M with Cellulitis . Height: 5 feet, 11 inches Weight: 55.0 kg [place] Body Weight: 75.30 Adjusted Body Weight: 67.18 Dosing Weight: Actual Other Antibiotics: CEFEPIME LABS: Last BUN: 20 Last Creatinine: 0.9 Creatinine Clearance: 75 mL/min Last WBC: 11.7 Last Procalcitonin: Tmax (past 24 hours): 98.5 Microbiology: I/O: -/1200 Drug Levels: Last level: on at Last dose given at Vancomycin Dosing: Loading Dose: 1500 mg x1 Dosing Weight: Actual Target Trough: 10-20 A: Based on: Body weight and renal function P: 1. Start Vancomycin 1000 mg IV q12h 2. Follow up Trough level on 02/07/20 at 0230 3. Pharmacy will continue to monitor, follow and adjust therapy as needed. DALE DUDLEY [facility], 02/05/20 [id number]
[2020-02-05 15:00] VITALS: BP 129/70
[2020-02-05] MEDS: CEFEPIME HCL IV Push 2 GM VIAL. IVP SCH ×2 (15:00→22:00)
[2020-02-05] MEDS: VANCOMYCIN 1 GM in IV NORMAL SALINE 250ML 250 ML IV SCH (15:00)
--- NOTE | 2020-02-05 16:40 | NUR ---
Consult called in to Dr. Cramer through answering service.
[2020-02-05 19:00] VITALS: BP 150/77
[2020-02-05] MEDS: LACTOBACILLUS RHAMNOSUS GG 1 CAPSULE. PO SCH (20:39)
[2020-02-05] MEDS: INSULIN GLARGINE SYRINGE. SQ SCH (21:50)
[2020-02-05 23:00] VITALS: BP 166/75
[2020-02-06] MEDS: oxyCODONE IR 5 MG TABLET PO PRN ×4 (00:43→20:36)
[2020-02-06 03:00] VITALS: BP 123/67
[2020-02-06] MEDS: VANCOMYCIN 1 GM in IV NORMAL SALINE 250ML 250 ML IV SCH ×2 (03:26→15:14)
--- NOTE | 2020-02-06 05:19 | CONS ---
DATE OF CONSULTATION: 02/05/2020 CHIEF COMPLAINT: Right thigh pain. REQUESTING PHYSICIAN: Dr. Pat Lima. HISTORY OF PRESENT ILLNESS: The patient is a 54-year-old male who tells me that he had a large can of soup come out of his cupboard and come down several feet and hit him on the mid right thigh area. He said it hurt at first, seemed to resolve somewhat over a couple of days and now a couple of weeks later tends to be quite sore and developed more soreness such that he could hardly bear weight on his leg for the past day or two. He said it has resolved somewhat in the hospital, but he still got some soreness, especially with sharp movement of the leg. It was reported in the Emergency Department also that he fell and hit his right leg, although he is not telling me that today. He has also had recent surgery on his head with cellulitis of his scalp on the top of his head and reported and was admitted with new head wounds and increasing weakness and has been really not getting out of bed over the past few days. PAST MEDICAL HISTORY: Significant for type 2 diabetes, hypertension, anxiety, history of MRSA, blindness in the right eye. PAST SURGICAL HISTORY: Significant for amputation below knee on his left side, right great and second toe amputations, back surgery, left hand surgery, vascular surgeries and right eye surgery. SOCIAL HISTORY: He smokes every day. Denies alcohol or drug use. ALLERGIES: INCLUDE BACTRIM. FAMILY HISTORY: Unknown. REVIEW OF SYSTEMS: He denies any recent fever, chills or radiating pain, although he feels weak. He does not have any focal weakness, numbness, tingling. He does indicate some recent weight loss that is affected the fit of his left leg prosthesis and he has been back to [facility] for fitting some additional socks that help tighten the stump, but he has had some tightness and pressure in the area and it still slipped somewhat and he has to go back for readjustment. PHYSICAL EXAMINATION: On examination of the right leg and thigh, he does have tenderness over the mid-thigh. There is really no skin defect. He has pain with rapid or passive movement, not as much with slow or active range of motion. Extensor mechanism is all intact. There is no evidence of any fluctuance or erythema present. He has normal motion and stability of bilateral hips and knees. He has a well-healed stump from a below-knee amputation on the left and well-healed sites from the great and second toe amputations on the right. IMAGING: X-rays of the femur including the right hip and knee showed no evidence of any fracture, degenerative change or other bony abnormality. I do not see any soft tissue calcification. IMPRESSION: Right thigh contusion, resolving. TREATMENT PLAN: I went over with him that sometimes with a deep thigh bruise, this takes a longer time to recover and potentially if he overdoes it somewhat or stretches aggressively that can actually be a little bit of calcification that occurs in the area. I do not really see this happening on x-ray, but it is a possibility, so I told him that he could continue gentle range of motion, weightbearing and activity as symptomatically tolerated, but I would not necessarily overly push his stretching and I thought it sounds like a good idea to continue to follow up with [facility] in terms of his prosthesis fit as well to avoid any unsteadiness, falls or wound problems at the stump that might occur as a result of some of the issues that he described. Other than that, I think it is an observation and symptomatic treatment and follow up on an as needed basis from an orthopedic standpoint. LYNDA MILLIGAN MD DR: FER/denise JOB#: [id number] / [id number] PAT Navarrete MD
[2020-02-06] MEDS: CEFEPIME HCL IV Push 2 GM VIAL. IVP SCH ×3 (06:03→22:23)
[2020-02-06] MEDS: CENEGERMIN BKBJ OS SCH ×4 (07:00→15:16)
--- NOTE | 2020-02-06 07:10 | NUR ---
[employer] on [employer] was down last evening 02/05/2020. This RN had to administer medications on computer at nurse's desk.
[2020-02-06 07:21] LABS: CREATININE 0.7 mg/dL (0.7-1.3); GFR 118.4
[2020-02-06 07:59] VITALS: BP 136/64
[2020-02-06] MEDS: ASPIRIN ENTERIC COATED 81 MG TABLET.DR. PO SCH (08:04)
[2020-02-06] MEDS: LACTOBACILLUS RHAMNOSUS GG 1 CAPSULE. PO SCH ×2 (08:04→20:36)
[2020-02-06] MEDS: INSULIN LISPRO 300 UNITS/3 ML VIAL. SQ SCH ×3 (08:09→16:43)
--- NOTE | 2020-02-06 09:11 | PDOC ---
SURGICAL PROGRESS NOTE Subjective Patient resting comfortably no acute changes Vital Signs Vital Signs Date Time Temp Pulse Resp B/P (MAP) Pulse Ox O2 Delivery O2 Flow Rate FiO2 02/06/20 08:04 Room Air 02/06/20 03:00 99.7 102 18 123/67 (85) 94 99.7 I&O Intake and Output 02/06/20 07:00 Output Total 550 ml Balance -550 ml Output Urine Total 550 ml PATIENT HAS A WELCH: No General: Alert, Oriented X3, Cooperative, mild distress Skin: Other (Cellulitis. Improving no fluctuance) Labs Laboratory Tests Test 02/04/20 15:13 02/04/20 15:26 02/04/20 21:43 02/05/20 07:57 Urine Collection Type Unknown Urine Color Yellow Urine Clarity Clear Urine pH 6.0 (<5.0-8.0) Urine Specific [place] >=1.030 (1.000-1.030) Urine Protein 100 mg/dL (NEG-TRACE) Urine Glucose (UA) 1000 mg/dL (NEG) Urine Ketones (Stick) Negative mg/dL (NEG) Urine Blood Small (NEG) Urine Nitrite Negative (NEG) Urine Bilirubin Negative (NEG) Urine Urobilinogen Dipstick 0.2 mg/dL (0.2 mg/dL) Urine Leukocyte Esterase Negative (NEG) Urine RBC >40 /HPF (0-2) Urine WBC 1-4 /HPF (0-4) Urine Squamous Epithelial Cells Mod /LPF Urine Bacteria Few /HPF (0-FEW) Urine Hyaline Casts Moderate /HPF Urine Granular Casts Moderate /HPF Urine Waxy Casts Few /HPF Urine Mucus Mod /LPF White Blood Count 11.7 x10^3/uL (4.0-11.0) Red Blood Count 3.68 x10^6/uL (4.30-5.70) Hemoglobin 10.1 g/dL (13.0-17.5) Hematocrit 30.8 % (39.0-53.0) Mean Corpuscular Volume 84 fL (79-100) Mean Corpuscular Hemoglobin 27 pg (25-35) Mean Corpuscular Hemoglobin Concent 33 g/dL (31-37) Red Cell Distribution Width 16.9 % (11.5-14.5) Platelet Count 333 x10^3/uL (140-400) Neutrophils (%) (Auto) 85 % (31-73) Lymphocytes (%) (Auto) 10 % (24-48) Monocytes (%) (Auto) 5 % (0-9) Eosinophils (%) (Auto) 0 % (0-3) Basophils (%) (Auto) 1 % (0-3) Neutrophils # (Auto) 9.9 x10^3/uL (1.8-7.7) Lymphocytes # (Auto) 1.1 x10^3/uL (1.0-4.8) Monocytes # (Auto) 0.6 x10^3/uL (0.0-1.1) Eosinophils # (Auto) 0.0 x10^3/uL (0.0-0.7) Basophils # (Auto) 0.1 x10^3/uL (0.0-0.2) Sodium Level 128 mmol/L (136-145) Potassium Level 4.5 mmol/L (3.5-5.1) Chloride Level 92 mmol/L (98-107) Carbon Dioxide Level 33 mmol/L (21-32) Anion Gap 3 (6-14) Blood Urea Nitrogen 20 mg/dL (8-26) Creatinine 0.9 mg/dL (0.7-1.3) Estimated GFR (Cockcroft-Gault) 88.6 BUN/Creatinine Ratio 22 (6-20) Glucose Level 303 mg/dL (70-99) Lactic Acid Level 1.7 mmol/L (0.4-2.0) Calcium Level 9.0 mg/dL (8.5-10.1) Total Bilirubin 0.5 mg/dL (0.2-1.0) Aspartate Amino Transf (AST/SGOT) 19 U/L (15-37) Alanine Aminotransferase (ALT/SGPT) 17 U/L (16-63) Alkaline Phosphatase 143 U/L (46-116) Total Protein 7.6 g/dL (6.4-8.2) Albumin 1.8 g/dL (3.4-5.0) Albumin/Globulin Ratio 0.3 (1.0-1.7) Glucose (Fingerstick) 334 mg/dL (70-99) 191 mg/dL (70-99) Test 02/05/20 11:48 02/05/20 16:53 02/05/20 21:03 02/06/20 06:10 Glucose (Fingerstick) 165 mg/dL (70-99) 159 mg/dL (70-99) 108 mg/dL (70-99) Creatinine 0.7 mg/dL (0.7-1.3) Estimated GFR (Cockcroft-Gault) 118.4 Test 02/06/20 07:46 Glucose (Fingerstick) 299 mg/dL (70-99) Laboratory Tests Test 02/05/20 11:48 02/05/20 16:53 02/05/20 21:03 02/06/20 06:10 Glucose (Fingerstick) 165 mg/dL (70-99) 159 mg/dL (70-99) 108 mg/dL (70-99) Creatinine 0.7 mg/dL (0.7-1.3) Estimated GFR (Cockcroft-Gault) 118.4 Test 02/06/20 07:46 Glucose (Fingerstick) 299 mg/dL (70-99) Problem List Problems Medical Problems: (1) Failure of outpatient treatment Status: Acute (2) Hyperglycemia Status: Acute (3) Hyponatremia Status: Acute (4) Weakness generalized Status: Acute Assessment/Plan The light us with multiple wounds continue local wound care antibiotics No surgical plans at this time MALLIKA SUÁREZ MD Feb 06, 2020 09:11
--- NOTE | 2020-02-06 10:38 | PDOC ---
GENERAL General: vss and tmax 99.7. awake and alert and claims leg feels some better and wants to go home. still significant pain with ROM leg. chest clear, heart regular, abdomen benign, scalp stable and much improved from last admission. will ask PT to eval for safety of transfer to wheelchair prior to considering dc to home. continue present antibiotics. VITAL SIGNS/I&O Vital Signs/I&O: Vital Signs Date Time Temp Pulse Resp B/P (MAP) Pulse Ox O2 Delivery O2 Flow Rate FiO2 02/06/20 09:38 Room Air 02/06/20 07:59 99.5 106 16 136/64 (88) 93 99.5 I & O 02/05/20 02/05/20 02/06/20 15:00 23:00 07:00 Output Total 250 ml 300 ml Balance -250 ml -300 ml ALLERGIES Allergies: Allergies Coded Allergies Type Severity Reaction Last Updated Verified sulfamethoxazole Allergy Intermediate Rash 01/21/20 Yes trimethoprim Allergy Intermediate Rash 01/21/20 Yes I S O L A T I O N *CONTACT* Allergy Unknown 01/21/20 Yes MEDS Medications: Current Medications Medications (Trade) Dose Ordered Sig/Tory Route PRN Reason Start Time Stop Time Status Last Admin Dose Admin Cefepime HCl (Maxipime) 2 gm Q8HRS IVP 02/05/20 15:00 02/06/20 06:03 Vancomycin HCl 1 gm/Sodium Chloride 250 ml @ 250 mls/hr Q12H IV 02/05/20 15:00 02/06/20 03:26 Lactobacillus Rhamnosus (Culturelle) 1 cap BID PO 02/05/20 21:00 02/06/20 08:04 Vancomycin HCl (Vanco Per Pharmacy) 1 each PRN DAILY PRN MC SEE COMMENTS 02/05/20 15:00 02/05/20 14:51 LAB Lab: Laboratory Tests Test 02/05/20 11:48 02/05/20 16:53 02/05/20 21:03 02/06/20 06:10 Glucose (Fingerstick) 165 mg/dL (70-99) H 159 mg/dL (70-99) H 108 mg/dL (70-99) H Creatinine 0.7 mg/dL (0.7-1.3) Estimated GFR (Cockcroft-Gault) 118.4 Test 02/06/20 07:46 Glucose (Fingerstick) 299 mg/dL (70-99) H Laboratory Tests 02/06/20 06:10 PAT MOSHER MD Feb 06, 2020 10:37
[2020-02-06 11:59] VITALS: BP 130/70
[2020-02-06] MEDS: VANCOMYCIN PER PHARMACY MC PRN (12:42)
--- NOTE | 2020-02-06 14:24 | PDOC ---
Infectious Disease Note Subjective Subjective Feeing some better today, hoping to go home soon Hungry Still having drainage from scalp wound Denies fevers/chill/SOA ROS ROS per HPI Vital Sign Vital Signs Vital Signs Date Time Temp Pulse Resp B/P (MAP) Pulse Ox O2 Delivery O2 Flow Rate FiO2 02/06/20 13:03 Room Air 02/06/20 11:59 99.0 96 20 130/70 (90) 99 99.0 Physical Exam PHYSICAL EXAM GENERAL: Propped up in bed, alert, loos better, more conversant and joking HEENT: Right eye cataract. Oropharynx pink and dry. No lesions seen. In dentures. Two fairly large scalp wounds, scabbed with purulent drainage and mild erythema. NECK: Supple. LUNGS: Clear to auscultation. HEART: S1, S2. no murmur appreciated ABDOMEN: Nondistended, soft, nontender with bowel sounds present. EXTREMITIES: Previous left BKA. Right index finger wound healing, dry scab, couple sutures still in place. Left fifth finger wound also scabbed, no signs of infection. SKIN: Warm to touch. No signs of rash. NEUROLOGIC: Alert, answers questions appropriately Labs Lab Laboratory Tests Test 02/05/20 16:53 02/05/20 21:03 02/06/20 06:10 02/06/20 07:46 Glucose (Fingerstick) 159 mg/dL (70-99) 108 mg/dL (70-99) 299 mg/dL (70-99) Creatinine 0.7 mg/dL (0.7-1.3) Estimated GFR (Cockcroft-Gault) 118.4 Test 02/06/20 11:55 Glucose (Fingerstick) 101 mg/dL (70-99) Micro Microbiology 02/04/20 Blood Culture - Final, Complete Objective Assessment Recurrent scalp abscess - no surgical plans -h/o I and D, 01/18. MRSA Leukocytosis h/o flexor tenosynovitis of the right index finger with peritendinous abscess/osteo s/p I and D, 01/[address] Burt. MRSA h/o left 4th & 5th finger abscesses s/p I and D, 01/08 Diabetes mellitus poorly controlled. Severe peripheral neuropathy with multiple injuries and wilson SULFA ALLERGY History of Clostridium difficile. History of MDRO infection including MRSA, Klebsiella, Enterococcus, Citrobacter, and group B strep. Status post left below-knee amputation. Plan Plan of Care Continue Cefepime vancomycin per pharmacy protocal. Monitor renal function closely f/u BC, GPC ID still pending Repeat BC to establish bacterial clearance Labs in am Local wound care Contact isolation D/w nursing Patient seen and examined. Chart reviewed in detail. Case discussed with FIELD TRAINING MANAGER agree with above plan. MAGGI NEWMAN APRN Feb 06, 2020 14:24 AGUSTIN NEWMAN MD Feb 06, 2020 21:47
[2020-02-06 15:59] VITALS: BP 149/71
[2020-02-06 19:30] VITALS: BP 125/65
[2020-02-06] MEDS: INSULIN GLARGINE SYRINGE. SQ SCH (22:30)
[2020-02-06 23:00] VITALS: BP 140/70
--- NOTE | 2020-02-06 23:09 | NUR ---
Pt. only wanted to take 10 units of lantus this evening so that is what this RN administered.
[2020-02-07] MEDS: oxyCODONE IR 5 MG TABLET PO PRN ×5 (02:59→23:15)
[2020-02-07 03:21] VITALS: BP 101/41
[2020-02-07 03:30] LABS: ANION GAP 4 (6-14); BLOOD UREA NITROGEN 13 mg/dL (8-26); CALCIUM 8.3 mg/dL (8.5-10.1); CARBON DIOXIDE 30 mmol/L (21-32); CHLORIDE 95 mmol/L (98-107); CREATININE 0.8 mg/dL (0.7-1.3); GFR 101.5; GLUCOSE 336 mg/dL (70-99); POTASSIUM 3.9 mmol/L (3.5-5.1); SODIUM 129 mmol/L (136-145); VANC TR 12.9 mcg/mL (10.0-20.0)
[2020-02-07] MEDS: VANCOMYCIN 1 GM in IV NORMAL SALINE 250ML 250 ML IV SCH (03:51)
[2020-02-07 03:55] LABS: BASO # 0.1 x10^3/uL (0.0-0.2); BASO % 0 % (0-3); EOS # 0.1 x10^3/uL (0.0-0.7); EOS % 1 % (0-3); HEMATOCRIT 22.5 % (39.0-53.0); HEMOGLOBIN 7.4 g/dL (13.0-17.5); LYMPH # 0.7 x10^3/uL (1.0-4.8); LYMPH % 5 % (24-48); MEAN CORPUSCULAR HEMOGLOBIN 27 pg (25-35); MEAN CORPUSCULAR HGB CONC 33 g/dL (31-37); MEAN CORPUSCULAR VOLUME 83 fL (79-100); MONO # 0.8 x10^3/uL (0.0-1.1); MONO % 6 % (0-9); NEUT % 88 % (31-73); PLATELET COUNT 386 x10^3/uL (140-400); RED CELL DISTRIBUTION WIDTH 17.1 % (11.5-14.5); WHITE BLOOD COUNT 13.6 x10^3/uL (4.0-11.0)
[2020-02-07] MEDS: VANCOMYCIN PER PHARMACY MC PRN ×4 (04:23→13:46)
--- NOTE | 2020-02-07 04:23 | NUR ---
Pharmacy Vancomycin Dosing Note S:Consulted to monitor and dose vancomycin started 02/05/20. O:INO DONOHUE is a 54 year old M with Cellulitis Bacteremia . Height: 5 feet, 11 inches Weight: 55.0 kg [place] Body Weight: 75.30 Adjusted Body Weight: 67.18 Dosing Weight: Actual Other Antibiotics: CEFEPIME LABS: Last BUN: 20 Last Creatinine: 0.7 Creatinine Clearance: 96 mL/min Last WBC: 11.7 Last Procalcitonin: Tmax (past 24 hours): 99.7 Microbiology: 02/03 Blood: GPC in 02/25 I/O: -/550 Drug Levels: Last Trough level: 12.9 on 02/07/20 at 0230 Last dose given 02/06/20 at 0326 Vancomycin Dosing: Loading Dose: 1500 mg x1 Dosing Weight: Actual Target Trough: 15-20 A: Based on: TROUGH AND CONDITION P: 1. Continue Vancomycin 1000 mg IV q12h 2. Follow up Trough level IF NEEDED 3. Pharmacy will continue to monitor, follow and adjust therapy as needed. STEVE STEEL RPH, 02/07/20 0423 Signed: 02/07/20 at 0424 by STEVE STEEL RPH PHA
[2020-02-07] MEDS: CEFEPIME HCL IV Push 2 GM VIAL. IVP SCH ×3 (05:35→22:18)
[2020-02-07 07:00] VITALS: BP 131/68
[2020-02-07 07:52] LABS: % BANDS 1 % (0-9); % LYMPHS 7 % (24-48); % MONOS 2 % (0-10); % SEGS 90 % (35-66); PLT ESTIMATE ADEQUATE (ADEQUATE)
[2020-02-07] MEDS: ASPIRIN ENTERIC COATED 81 MG TABLET.DR. PO SCH (08:36)
[2020-02-07] MEDS: LACTOBACILLUS RHAMNOSUS GG 1 CAPSULE. PO SCH ×2 (08:36→22:18)
[2020-02-07] MEDS: INSULIN LISPRO 300 UNITS/3 ML VIAL. SQ SCH ×3 (08:43→17:00)
--- NOTE | 2020-02-07 10:49 | PDOC ---
Infectious Disease Note Subjective: Subjective Feeing some better today, Still having drainage from scalp wound Denies fevers/chill/SOA Vital Signs: Vital Signs Vital Signs Date Time Temp Pulse Resp B/P (MAP) Pulse Ox O2 Delivery O2 Flow Rate FiO2 02/07/20 08:36 Room Air 02/07/20 07:00 99.0 93 16 131/68 (89) 99 99.0 Physical Exam: PHYSICAL EXAM GENERAL: Propped up in bed, alert, loos better, more conversant and joking HEENT: Right eye cataract. Oropharynx pink and dry. No lesions seen. In dentures. Two fairly large scalp wounds, scabbed with purulent drainage and mild erythema. NECK: Supple. LUNGS: Clear to auscultation. HEART: S1, S2. no murmur appreciated ABDOMEN: Nondistended, soft, nontender with bowel sounds present. EXTREMITIES: Previous left BKA. Right index finger wound healing, dry scab, couple sutures still in place. Left fifth finger wound also scabbed, no signs of infection. SKIN: Warm to touch. No signs of rash. NEUROLOGIC: Alert, answers questions appropriately Medications: Inpatient Meds: Current Medications Medications (Trade) Dose Ordered Sig/Tory Start Time Stop Time Status Last Admin Dose Admin Aspirin (Ecotrin) 81 mg [id number] 02/05/20 08:00 02/07/20 08:36 81 MG Cefepime HCl (Maxipime) 2 gm Q8HRS 02/05/20 15:00 02/07/20 05:35 2 GM Insulin Glargine (Lantus Syringe) 20 unit QHS 02/04/20 21:00 02/06/20 22:30 20 UNIT Insulin Human Lispro (HumaLOG) 60 units TIDWMEALS 02/05/20 08:00 02/07/20 08:43 20 UNITS Lactobacillus Rhamnosus (Culturelle) 1 cap BID 02/05/20 21:00 02/07/20 08:36 1 CAP Non-Formulary Medication (Cenegermin-Bkbj (Oxervate)) 1 ml 6XDAY 02/04/20 22:00 02/06/20 15:47 DC Ondansetron HCl (Zofran) 4 mg PRN Q8HRS PRN 02/04/20 16:30 02/05/20 16:29 DC Oxycodone HCl (Roxicodone) 15 mg PRN Q4HRS PRN 02/04/20 20:15 02/07/20 08:36 15 MG Pharmacy Consult (C.diff Med Screen By Rx) 1 each 1X ONCE 02/05/20 00:30 02/05/20 00:31 Cancel Sodium Chloride 1,000 ml @ 100 mls/hr Q10H 02/04/20 16:22 02/05/20 16:21 DC 02/05/20 12:22 100 MLS/HR Vancomycin HCl (Vanco Per Pharmacy) 1 each PRN DAILY PRN 02/05/20 15:00 02/07/20 09:25 1 EACH Vancomycin HCl (Vancomycin Trough Level) 1 each 1X ONCE 02/07/20 02:30 02/07/20 02:31 DC 02/07/20 02:30 1 EACH Vancomycin HCl 1.5 gm/Sodium Chloride 500 ml @ 250 mls/hr 1X ONCE 02/04/20 16:15 02/04/20 18:14 DC 02/04/20 17:29 250 MLS/HR Vancomycin HCl 1 gm/Sodium Chloride 250 ml @ 250 mls/hr Q12H 02/05/20 15:00 02/07/20 03:51 250 MLS/HR Labs: Lab Laboratory Tests Test 02/06/20 11:55 02/06/20 16:30 02/06/20 20:17 02/07/20 02:45 Glucose (Fingerstick) 101 mg/dL (70-99) 112 mg/dL (70-99) 203 mg/dL (70-99) White Blood Count 13.6 x10^3/uL (4.0-11.0) Red Blood Count 2.70 x10^6/uL (4.30-5.70) Hemoglobin 7.4 g/dL (13.0-17.5) Hematocrit 22.5 % (39.0-53.0) Mean Corpuscular Volume 83 fL (79-100) Mean Corpuscular Hemoglobin 27 pg (25-35) Mean Corpuscular Hemoglobin Concent 33 g/dL (31-37) Red Cell Distribution Width 17.1 % (11.5-14.5) Platelet Count 386 x10^3/uL (140-400) Neutrophils (%) (Auto) 88 % (31-73) Lymphocytes (%) (Auto) 5 % (24-48) Monocytes (%) (Auto) 6 % (0-9) Eosinophils (%) (Auto) 1 % (0-3) Basophils (%) (Auto) 0 % (0-3) Neutrophils # (Auto) 12.0 x10^3/uL (1.8-7.7) Lymphocytes # (Auto) 0.7 x10^3/uL (1.0-4.8) Monocytes # (Auto) 0.8 x10^3/uL (0.0-1.1) Eosinophils # (Auto) 0.1 x10^3/uL (0.0-0.7) Basophils # (Auto) 0.1 x10^3/uL (0.0-0.2) Segmented Neutrophils % 90 % (35-66) Band Neutrophils % 1 % (0-9) Lymphocytes % 7 % (24-48) Monocytes % 2 % (0-10) Platelet Estimate Adequate (ADEQUATE) Sodium Level 129 mmol/L (136-145) Potassium Level 3.9 mmol/L (3.5-5.1) Chloride Level 95 mmol/L (98-107) Carbon Dioxide Level 30 mmol/L (21-32) Anion Gap 4 (6-14) Blood Urea Nitrogen 13 mg/dL (8-26) Creatinine 0.8 mg/dL (0.7-1.3) Estimated GFR (Cockcroft-Gault) 101.5 Glucose Level 336 mg/dL (70-99) Calcium Level 8.3 mg/dL (8.5-10.1) Vancomycin Level Trough 12.9 mcg/mL (10.0-20.0) Vancomycin Last Dose Date Vancomycin Last Dose Time Test 02/07/20 08:06 Glucose (Fingerstick) 272 mg/dL (70-99) Objective: Assessment: GPC Bacteremia POA 02/03 Recurrent scalp abscess - no surgical plans -h/o I and D, 01/18. MRSA - Pt was dc on IV oritavancin - Previously had been on linezolid though he did not fill it after previous discharge Leukocytosis h/o flexor tenosynovitis of the right index finger with peritendinous abscess/osteo s/p I and D, 2/[address] Burt. MRSA h/o left 4th & 5th finger abscesses s/p I and D, 01/08 Diabetes mellitus poorly controlled. Severe peripheral neuropathy with multiple injuries and wilson SULFA ALLERGY History of Clostridium difficile. History of MDRO infection including MRSA, Klebsiella, Enterococcus, Citrobacter, and group B strep. Status post left below-knee amputation. h/o Noncomplaince Plan: Plan of Care Continue Cefepime vancomycin per pharmacy protocol last vanc trough 12.9,creat is wnl Monitor renal function closely f/u BC, GPC ID still pending f/u Repeat BC Labs in am Local wound care Contact isolation D/w nursing SON BECERRA MD Feb 07, 2020 10:49
[2020-02-07 11:00] VITALS: BP 120/61
--- NOTE | 2020-02-07 11:59 | PDOC ---
MORRIS OSORIO FUNDING SPECIALIST 02/07/20 1159: SURGICAL PROGRESS NOTE Subjective feels better pain in leg continues Vital Signs Vital Signs Date Time Temp Pulse Resp B/P (MAP) Pulse Ox O2 Delivery O2 Flow Rate FiO2 02/07/20 11:00 98.9 65 16 120/61 (80) 95 Room Air 98.9 I&O Intake and Output 02/07/20 07:00 Intake Total 540 ml Output Total 1050 ml Balance -510 ml Intake Oral 540 ml Output Urine Total 1050 ml General: Alert, Cooperative HEENT: Other (scalp wound with sloughing and some drainage, neck with minimal erythema ) Labs Laboratory Tests Test 02/05/20 16:53 02/05/20 21:03 02/06/20 06:10 02/06/20 07:46 Glucose (Fingerstick) 159 mg/dL (70-99) 108 mg/dL (70-99) 299 mg/dL (70-99) Creatinine 0.7 mg/dL (0.7-1.3) Estimated GFR (Cockcroft-Gault) 118.4 Test 02/06/20 11:55 02/06/20 16:30 02/06/20 20:17 02/07/20 02:45 Glucose (Fingerstick) 101 mg/dL (70-99) 112 mg/dL (70-99) 203 mg/dL (70-99) White Blood Count 13.6 x10^3/uL (4.0-11.0) Red Blood Count 2.70 x10^6/uL (4.30-5.70) Hemoglobin 7.4 g/dL (13.0-17.5) Hematocrit 22.5 % (39.0-53.0) Mean Corpuscular Volume 83 fL (79-100) Mean Corpuscular Hemoglobin 27 pg (25-35) Mean Corpuscular Hemoglobin Concent 33 g/dL (31-37) Red Cell Distribution Width 17.1 % (11.5-14.5) Platelet Count 386 x10^3/uL (140-400) Neutrophils (%) (Auto) 88 % (31-73) Lymphocytes (%) (Auto) 5 % (24-48) Monocytes (%) (Auto) 6 % (0-9) Eosinophils (%) (Auto) 1 % (0-3) Basophils (%) (Auto) 0 % (0-3) Neutrophils # (Auto) 12.0 x10^3/uL (1.8-7.7) Lymphocytes # (Auto) 0.7 x10^3/uL (1.0-4.8) Monocytes # (Auto) 0.8 x10^3/uL (0.0-1.1) Eosinophils # (Auto) 0.1 x10^3/uL (0.0-0.7) Basophils # (Auto) 0.1 x10^3/uL (0.0-0.2) Segmented Neutrophils % 90 % (35-66) Band Neutrophils % 1 % (0-9) Lymphocytes % 7 % (24-48) Monocytes % 2 % (0-10) Platelet Estimate Adequate (ADEQUATE) Sodium Level 129 mmol/L (136-145) Potassium Level 3.9 mmol/L (3.5-5.1) Chloride Level 95 mmol/L (98-107) Carbon Dioxide Level 30 mmol/L (21-32) Anion Gap 4 (6-14) Blood Urea Nitrogen 13 mg/dL (8-26) Creatinine 0.8 mg/dL (0.7-1.3) Estimated GFR (Cockcroft-Gault) 101.5 Glucose Level 336 mg/dL (70-99) Calcium Level 8.3 mg/dL (8.5-10.1) Vancomycin Level Trough 12.9 mcg/mL (10.0-20.0) Vancomycin Last Dose Date Vancomycin Last Dose Time Test 02/07/20 08:06 02/07/20 11:06 Glucose (Fingerstick) 272 mg/dL (70-99) 144 mg/dL (70-99) Laboratory Tests Test 02/06/20 16:30 02/06/20 20:17 02/07/20 02:45 02/07/20 08:06 Glucose (Fingerstick) 112 mg/dL (70-99) 203 mg/dL (70-99) 272 mg/dL (70-99) White Blood Count 13.6 x10^3/uL (4.0-11.0) Red Blood Count 2.70 x10^6/uL (4.30-5.70) Hemoglobin 7.4 g/dL (13.0-17.5) Hematocrit 22.5 % (39.0-53.0) Mean Corpuscular Volume 83 fL (79-100) Mean Corpuscular Hemoglobin 27 pg (25-35) Mean Corpuscular Hemoglobin Concent 33 g/dL (31-37) Red Cell Distribution Width 17.1 % (11.5-14.5) Platelet Count 386 x10^3/uL (140-400) Neutrophils (%) (Auto) 88 % (31-73) Lymphocytes (%) (Auto) 5 % (24-48) Monocytes (%) (Auto) 6 % (0-9) Eosinophils (%) (Auto) 1 % (0-3) Basophils (%) (Auto) 0 % (0-3) Neutrophils # (Auto) 12.0 x10^3/uL (1.8-7.7) Lymphocytes # (Auto) 0.7 x10^3/uL (1.0-4.8) Monocytes # (Auto) 0.8 x10^3/uL (0.0-1.1) Eosinophils # (Auto) 0.1 x10^3/uL (0.0-0.7) Basophils # (Auto) 0.1 x10^3/uL (0.0-0.2) Segmented Neutrophils % 90 % (35-66) Band Neutrophils % 1 % (0-9) Lymphocytes % 7 % (24-48) Monocytes % 2 % (0-10) Platelet Estimate Adequate (ADEQUATE) Sodium Level 129 mmol/L (136-145) Potassium Level 3.9 mmol/L (3.5-5.1) Chloride Level 95 mmol/L (98-107) Carbon Dioxide Level 30 mmol/L (21-32) Anion Gap 4 (6-14) Blood Urea Nitrogen 13 mg/dL (8-26) Creatinine 0.8 mg/dL (0.7-1.3) Estimated GFR (Cockcroft-Gault) 101.5 Glucose Level 336 mg/dL (70-99) Calcium Level 8.3 mg/dL (8.5-10.1) Vancomycin Level Trough 12.9 mcg/mL (10.0-20.0) Vancomycin Last Dose Date Vancomycin Last Dose Time Test 02/07/20 11:06 Glucose (Fingerstick) 144 mg/dL (70-99) Problem List Problems Medical Problems: (1) Failure of outpatient treatment Status: Acute (2) Hyperglycemia Status: Acute (3) Hyponatremia Status: Acute (4) Weakness generalized Status: Acute Assessment/Plan continue wound care, abx ROHIT CABRERA MD 02/07/20 1213: SURGICAL PROGRESS NOTE Assessment/Plan pt seen agree with above no acute surgical plans MORRIS OSORIO APRN Feb 07, 2020 11:59 ROHIT CABRERA MD Feb 07, 2020 12:13
--- NOTE | 2020-02-07 13:42 | NUR ---
Pharmacy Vancomycin Dosing Note S:Consulted to monitor and dose vancomycin started 02/05/20. O:INO DONOHUE is a 54 year old M with Cellulitis and bacteremia. Height: 5 feet, 11 inches Weight: 55.0 kg [place] Body Weight: 75.30 Adjusted Body Weight: 67.18 Dosing Weight: Actual Other Antibiotics: CEFEPIME Linezolid added per ID LABS: Last BUN: 13 Last Creatinine: 0.8 Creatinine Clearance: about 80-85 mL/min Last WBC: 13.6 Last Procalcitonin: NA (cellulitis/bacteremia) Tmax (past 24 hours): 99.5 in last 24 hours Microbiology: 02/05 Blood: GPC in clusters growing in repeat BC 02/03 Blood: GPC in 02/25 I/O: 540/1050 Drug Levels: Last Trough level: 12.9 on 02/07/20 at 0245 Last dose given 02/06/20 at 0351 Vancomycin Dosing: Loading Dose: 1500 mg x1 Dosing Weight: Actual Target Trough: 15-20 A: Based on: Patient's trough this AM, renal function and repeat blood cultures now growing gram + cocci in clusters P: 1. Vancomycin dose increased to 1250 mg IV q12h 2. Follow up Trough level on 02/09/20 at 0230 3. Pharmacy will continue to monitor, follow and adjust therapy as needed. LEXX ZHU [facility], 02/07/20 [id number]
--- NOTE | 2020-02-07 13:55 | NUR ---
SW following. Discussed with RN, pt from home, non surgical, IV abx. Pt went for the one time infusion after last admission as scheduled. SW will continue to follow for any discharge planning needs.
[2020-02-07 15:00] VITALS: BP 121/62
[2020-02-07] MEDS: VANCOMYCIN 1.25 GM in IV NORMAL SALINE 250ML 250 ML IV SCH (15:40)
--- NOTE | 2020-02-07 15:48 | PDOC ---
GENERAL General: vss and afebrile. awake and alert and resigned to staying till can transfer. exam stable. remains on broad spectrum antibiotics. VITAL SIGNS/I&O Vital Signs/I&O: Vital Signs Date Time Temp Pulse Resp B/P (MAP) Pulse Ox O2 Delivery O2 Flow Rate FiO2 02/07/20 15:00 99.4 100 14 121/62 (81) 97 Room Air 99.4 I & O 02/06/20 02/06/20 02/07/20 15:00 23:00 07:00 Intake Total 240 ml 300 ml Output Total 650 ml 400 ml Balance -410 ml -400 ml 300 ml ALLERGIES Allergies: Allergies Coded Allergies Type Severity Reaction Last Updated Verified sulfamethoxazole Allergy Intermediate Rash 01/21/20 Yes trimethoprim Allergy Intermediate Rash 01/21/20 Yes I S O L A T I O N *CONTACT* Allergy Unknown 01/21/20 Yes MEDS Medications: Current Medications Medications (Trade) Dose Ordered Sig/Tory Route PRN Reason Start Time Stop Time Status Last Admin Dose Admin Vancomycin HCl (Vancomycin Trough Level) 1 each 1X ONCE MC 02/07/20 02:30 02/07/20 02:31 DC 02/07/20 02:30 Linezolid/Dextrose 300 ml @ 300 mls/hr Q12HR IV 02/07/20 15:00 02/07/20 14:04 Vancomycin HCl 1.25 gm/Sodium Chloride 250 ml @ 167 mls/hr Q12H IV 02/07/20 15:00 02/07/20 15:40 LAB Lab: Laboratory Tests Test 02/06/20 16:30 02/06/20 20:17 02/07/20 02:45 02/07/20 08:06 Glucose (Fingerstick) 112 mg/dL (70-99) H 203 mg/dL (70-99) H 272 mg/dL (70-99) H White Blood Count 13.6 x10^3/uL (4.0-11.0) H Red Blood Count 2.70 x10^6/uL (4.30-5.70) L Hemoglobin 7.4 g/dL (13.0-17.5) L Hematocrit 22.5 % (39.0-53.0) L Mean Corpuscular Volume 83 fL (79-100) Mean Corpuscular Hemoglobin 27 pg (25-35) Mean Corpuscular Hemoglobin Concent 33 g/dL (31-37) Red Cell Distribution Width 17.1 % (11.5-14.5) H Platelet Count 386 x10^3/uL (140-400) Neutrophils (%) (Auto) 88 % (31-73) H Lymphocytes (%) (Auto) 5 % (24-48) L Monocytes (%) (Auto) 6 % (0-9) Eosinophils (%) (Auto) 1 % (0-3) Basophils (%) (Auto) 0 % (0-3) Neutrophils # (Auto) 12.0 x10^3/uL (1.8-7.7) H Lymphocytes # (Auto) 0.7 x10^3/uL (1.0-4.8) L Monocytes # (Auto) 0.8 x10^3/uL (0.0-1.1) Eosinophils # (Auto) 0.1 x10^3/uL (0.0-0.7) Basophils # (Auto) 0.1 x10^3/uL (0.0-0.2) Segmented Neutrophils % 90 % (35-66) H Band Neutrophils % 1 % (0-9) Lymphocytes % 7 % (24-48) L Monocytes % 2 % (0-10) Platelet Estimate Adequate (ADEQUATE) Sodium Level 129 mmol/L (136-145) L Potassium Level 3.9 mmol/L (3.5-5.1) Chloride Level 95 mmol/L (98-107) L Carbon Dioxide Level 30 mmol/L (21-32) Anion Gap 4 (6-14) L Blood Urea Nitrogen 13 mg/dL (8-26) Creatinine 0.8 mg/dL (0.7-1.3) Estimated GFR (Cockcroft-Gault) 101.5 Glucose Level 336 mg/dL (70-99) H Calcium Level 8.3 mg/dL (8.5-10.1) L Vancomycin Level Trough 12.9 mcg/mL (10.0-20.0) Vancomycin Last Dose Date Vancomycin Last Dose Time Test 02/07/20 11:06 Glucose (Fingerstick) 144 mg/dL (70-99) H Laboratory Tests 02/07/20 02:45 Laboratory Tests 02/07/20 02:45 Nutrition Consultation Dietary Evaluation: Recommendations by RD: Dietary education by RD, Increase Calorie Intake, Protein supplementation Comments: ADA diet Glucerna tid Expected Outcomes/Goals: to meet >75% est nutr needs Interpretation of weight loss: >5% in 1 month Malnutrition Findings: Muscle Mass (Severe): Severe Depletion Body Fat Depletion (Non Severe: Mod to Severe Weight Status: Underweight APPLPAT MD Feb 07, 2020 15:47
--- NOTE | 2020-02-07 18:09 | NUR ---
Wound Care: Patient seen per wound care consult. See wound assessment. Patient is well known to us from the clinic and from multiple admissions. Patient has multiple wilson of varying degrees to both hands/fingers. Wounds cleansed and assessed. Recommendations to paint with Betadine, and to the right index finger apply Iodoflex and cover with telfa dressing. Patient also has multiple abscesses to the head/neck/scalp area. Wounds cleansed and assessed. Recommendations to also paint with Betadine. Patient states he is probably leaving tomorrow. Patient will continue to follow up in the wound clinic after discharge, however patient has missed multiple appointments recently due to pain. No other wounds noted. Patient able to self turn. Patient educated on turning and pressure relief. Bed lowered and call light in reach. Will follow patient regarding wound care.
--- NOTE | 2020-02-07 18:18 | NUR ---
IP: Pt has a hx of mrsa on arm and scalp on 01/18/20. P to be in contact precautions until there is a negative screen and no open wounds.
[2020-02-07 19:00] VITALS: BP 109/45
[2020-02-07] MEDS: INSULIN GLARGINE SYRINGE. SQ SCH ×2 (21:00→23:44)
[2020-02-07 23:00] VITALS: BP 111/55
--- NOTE | 2020-02-07 23:15 | NUR ---
Went into Patients room to identify IV pump alarm. I was troubleshooting air in the line and priming tubing when Nurse Rn Bone Marrow Transplant was administering a bed bath. NA informed Pt of everything she was going to do before she did it. NA was courteous and mindful of Patients condition. Pt did complain while I was priming tubing, and NA was very polite and only continued care with Patients approval. RN that was assigned to Patient was informed and had asked me to document what happened while I was in room with the Recruiting Assistant. Luisana Ackerman RN
--- NOTE | 2020-02-07 23:44 | NUR ---
Administered 10 units of lantus this evening. Pt. did not want to take all of it. He still continues to be non-compliant with his diet.
[2020-02-08 02:45] VITALS: BP 132/71
[2020-02-08 04:49] LABS: CREATININE 0.6 mg/dL (0.7-1.3); GFR 141.5
[2020-02-08] MEDS: oxyCODONE IR 5 MG TABLET PO PRN ×3 (05:15→21:24)
[2020-02-08] MEDS: VANCOMYCIN 1.25 GM in IV NORMAL SALINE 250ML 250 ML IV SCH ×2 (05:15→14:32)
[2020-02-08] MEDS: CEFEPIME HCL IV Push 2 GM VIAL. IVP SCH ×3 (06:41→21:25)
[2020-02-08 07:15] VITALS: BP 140/75
--- NOTE | 2020-02-08 07:21 | PDOC ---
GENERAL General: vss and afebrile. awake and alert. staph on blood cultures. refused PT yesterday. exam stable. continue present. VITAL SIGNS/I&O Vital Signs/I&O: Vital Signs Date Time Temp Pulse Resp B/P (MAP) Pulse Ox O2 Delivery O2 Flow Rate FiO2 02/08/20 06:44 Room Air 02/08/20 02:45 98.2 96 16 132/71 (91) 97 98.2 I & O 02/07/20 02/07/20 02/08/20 15:00 23:00 07:00 Intake Total 120 ml 200 ml Output Total 750 ml 300 ml 300 ml Balance -630 ml -300 ml -100 ml ALLERGIES Allergies: Allergies Coded Allergies Type Severity Reaction Last Updated Verified sulfamethoxazole Allergy Intermediate Rash 01/21/20 Yes trimethoprim Allergy Intermediate Rash 01/21/20 Yes I S O L A T I O N *CONTACT* Allergy Unknown 01/21/20 Yes MEDS Medications: Current Medications Medications (Trade) Dose Ordered Sig/Tory Route PRN Reason Start Time Stop Time Status Last Admin Dose Admin Linezolid/Dextrose 300 ml @ 300 mls/hr Q12HR IV 02/07/20 15:00 02/07/20 22:18 Vancomycin HCl 1.25 gm/Sodium Chloride 250 ml @ 167 mls/hr Q12H IV 02/07/20 15:00 02/08/20 05:15 LAB Lab: Laboratory Tests Test 02/07/20 08:06 02/07/20 11:06 02/07/20 16:43 02/07/20 20:11 Glucose (Fingerstick) 272 mg/dL (70-99) H 144 mg/dL (70-99) H 106 mg/dL (70-99) H 148 mg/dL (70-99) H Test 02/08/20 04:00 Creatinine 0.6 mg/dL (0.7-1.3) L Estimated GFR (Cockcroft-Gault) 141.5 Laboratory Tests 02/08/20 04:00 Nutrition Consultation Dietary Evaluation: Recommendations by RD: Dietary education by RD, Increase Calorie Intake, Protein supplementation Comments: ADA diet Glucerna tid Expected Outcomes/Goals: to meet >75% est nutr needs Interpretation of weight loss: >5% in 1 month Malnutrition Findings: Muscle Mass (Severe): Severe Depletion Body Fat Depletion (Non Severe: Mod to Severe Weight Status: Underweight PAT MOSHER MD Feb 08, 2020 07:21
[2020-02-08] MEDS: INSULIN LISPRO 300 UNITS/3 ML VIAL. SQ SCH ×3 (08:00→17:00)
[2020-02-08] MEDS: LACTOBACILLUS RHAMNOSUS GG 1 CAPSULE. PO SCH ×2 (09:09→21:24)
[2020-02-08] MEDS: ASPIRIN ENTERIC COATED 81 MG TABLET.DR. PO SCH (09:09)
--- NOTE | 2020-02-08 09:37 | NUR ---
SW following. Discussed with RN, pt having a bone scan today. IV abx. SW will continue to follow.
--- NOTE | 2020-02-08 10:33 | PDOC ---
Infectious Disease Note Subjective: Subjective Pt says has leg pain back pain has improved dfrainage from scalp has improved Denies fevers/chill/SOA Vital Signs: Vital Signs Vital Signs Date Time Temp Pulse Resp B/P (MAP) Pulse Ox O2 Delivery O2 Flow Rate FiO2 02/08/20 08:00 Room Air 02/08/20 07:15 97.3 90 20 140/75 (96) 95 97.3 Physical Exam: PHYSICAL EXAM GENERAL: Propped up in bed, alert, looks better, more conversant HEENT: Right eye cataract. Oropharynx pink and dry. No lesions seen. In dentures. Two fairly large scalp wounds, scabbed with purulent drainage and mild erythema. NECK: Supple. LUNGS: Clear to auscultation. HEART: S1, S2. no murmur appreciated ABDOMEN: Nondistended, soft, nontender with bowel sounds present. EXTREMITIES: Previous left BKA. Right index finger wound healing, dry scab, couple sutures still in place. Left fifth finger wound also scabbed, no signs of infection. back no wounds, rt foot amputation previous scar well healed SKIN: Warm to touch. No signs of rash. NEUROLOGIC: Alert, answers questions appropriately Medications: Inpatient Meds: Current Medications Medications (Trade) Dose Ordered Sig/Tory Start Time Stop Time Status Last Admin Dose Admin Aspirin (Ecotrin) 81 mg DAILYWBKFT 02/05/20 08:00 02/08/20 09:09 81 MG Cefepime HCl (Maxipime) 2 gm Q8HRS 02/05/20 15:00 02/08/20 06:41 2 GM Insulin Glargine (Lantus Syringe) 20 unit QHS 02/04/20 21:00 02/07/20 23:44 20 UNIT Insulin Human Lispro (HumaLOG) 60 units TIDWMEALS 02/05/20 08:00 02/07/20 08:43 20 UNITS Lactobacillus Rhamnosus (Culturelle) 1 cap BID 02/05/20 21:00 02/08/20 09:09 1 CAP Linezolid/Dextrose 300 ml @ 300 mls/hr Q12HR 02/07/20 15:00 02/08/20 09:09 300 MLS/HR Non-Formulary Medication (Cenegermin-Bkbj (Oxervate)) 1 ml 6XDAY 02/04/20 22:00 02/06/20 15:47 DC Ondansetron HCl (Zofran) 4 mg PRN Q8HRS PRN 02/04/20 16:30 02/05/20 16:29 DC Oxycodone HCl (Roxicodone) 15 mg PRN Q4HRS PRN 02/04/20 20:15 02/08/20 05:15 15 MG Pharmacy Consult (C.diff Med Screen By Rx) 1 each 1X ONCE 02/05/20 00:30 02/05/20 00:31 Cancel Sodium Chloride 1,000 ml @ 100 mls/hr Q10H 02/04/20 16:22 02/05/20 16:21 DC 02/05/20 12:22 100 MLS/HR Vancomycin HCl (Vanco Per Pharmacy) 1 each PRN DAILY PRN 02/05/20 15:00 02/07/20 13:46 1 EACH Vancomycin HCl (Vancomycin Trough Level) 1 each 1X ONCE 02/09/20 02:30 02/09/20 02:31 Vancomycin HCl 1.25 gm/Sodium Chloride 250 ml @ 167 mls/hr Q12H 02/07/20 15:00 02/08/20 05:15 167 MLS/HR Vancomycin HCl 1.5 gm/Sodium Chloride 500 ml @ 250 mls/hr 1X ONCE 02/04/20 16:15 02/04/20 18:14 DC 02/04/20 17:29 250 MLS/HR Vancomycin HCl 1 gm/Sodium Chloride 250 ml @ 250 mls/hr Q12H 02/05/20 15:00 02/07/20 13:36 DC 02/07/20 03:51 250 MLS/HR Labs: Lab Laboratory Tests Test 02/07/20 11:06 02/07/20 16:43 02/07/20 20:11 02/08/20 04:00 Glucose (Fingerstick) 144 mg/dL (70-99) 106 mg/dL (70-99) 148 mg/dL (70-99) Creatinine 0.6 mg/dL (0.7-1.3) Estimated GFR (Cockcroft-Gault) 141.5 Test 02/08/20 07:35 Glucose (Fingerstick) 163 mg/dL (70-99) Objective: Assessment: Staph aureus Bacteremia POA 3/13 , 02/05 Recurrent scalp abscess - no surgical plans -h/o I and D, 01/18. MRSA - Pt was dc on IV oritavancin - Previously had been on linezolid though he did not fill it after previous discharge Leukocytosis h/o flexor tenosynovitis of the right index finger with peritendinous abscess/osteo s/p I and D, 01/[address] Burt. MRSA h/o left 4th & 5th finger abscesses s/p I and D, 01/08 Diabetes mellitus poorly controlled. Severe peripheral neuropathy with multiple injuries and wilson SULFA ALLERGY History of Clostridium difficile. History of MDRO infection including MRSA, Klebsiella, Enterococcus, Citrobacter, and group B strep. Status post left below-knee amputation. h/o Noncomplaince Plan: Plan of Care Continue Cefepime , linezolid vancomycin per pharmacy protocol last vanc trough 12.9,creat is wnl Monitor renal function closely f/u staph aureus anni in bc, still pending f/u Repeat BC 02/07 VINCE f/u bone scan per primary Labs in am Local wound care Contact isolation Overall Prognosis poor D/w nursing SON BECERRA MD Feb 08, 2020 10:33
[2020-02-08 11:14] VITALS: BP 134/71
[2020-02-08] MEDS: VANCOMYCIN PER PHARMACY MC PRN (12:20)
--- NOTE | 2020-02-08 13:30 | RAD ---
History: Right thigh pain with bruising with positive blood culture Comparison: February 04, 2020 plain film Procedure: 26 mCI of Tc 99m MDP was injected intravenously and delayed scintigraphic images were obtained of the skeletal system. Findings: Post amputation changes of the left leg at the proximal tibia level. There is a small focus of increased radiotracer uptake seen within the lateral aspect of the left tibia at the level of the stump. Radiotracer uptake is seen at the major joints including the bilateral knees as well as the right foot. Impression: 1. Small focus of increased radiotracer uptake is identified within the left proximal tibia laterally at the level of the stump. This is nonspecific in nature but correlate with symptoms in the region to ensure that this is not secondary to a pathologic cause such as osteomyelitis. 2. Increased radiotracer uptake is seen at the major joints which is commonly secondary to degenerative changes. Electronically signed by: Jose Manuel Crenshaw MD (02/08/2020 1:27 PM) [id number]
[2020-02-08 15:15] VITALS: BP 132/71
[2020-02-08 19:00] VITALS: BP 115/59
[2020-02-08] MEDS: INSULIN GLARGINE SYRINGE. SQ SCH (21:27)
[2020-02-08 22:47] VITALS: BP 120/68
[2020-02-09] VITALS (8 sets, daily range): BP systolic 110–140; BP diastolic 49–72
[2020-02-09] MEDS: oxyCODONE IR 5 MG TABLET PO PRN ×4 (01:24→20:51)
[2020-02-09 02:49] LABS: BASO # 0.1 x10^3/uL (0.0-0.2); BASO % 1 % (0-3); EOS # 0.2 x10^3/uL (0.0-0.7); EOS % 1 % (0-3); LYMPH # 0.9 x10^3/uL (1.0-4.8); LYMPH % 7 % (24-48); MEAN CORPUSCULAR HEMOGLOBIN 27 pg (25-35); MEAN CORPUSCULAR HGB CONC 33 g/dL (31-37); MEAN CORPUSCULAR VOLUME 82 fL (79-100); MONO # 0.8 x10^3/uL (0.0-1.1); MONO % 7 % (0-9); NEUT # 10.3 x10^3/uL (1.8-7.7); NEUT % 84 % (31-73); PLATELET COUNT 533 x10^3/uL (140-400); RED BLOOD COUNT 2.53 x10^6/uL (4.30-5.70); RED CELL DISTRIBUTION WIDTH 16.8 % (11.5-14.5); WHITE BLOOD COUNT 12.2 x10^3/uL (4.0-11.0)
[2020-02-09 03:01] LABS: ALBUMIN 1.2 g/dL (3.4-5.0); ALBUMIN/GLOBULIN RATIO 0.2 (1.0-1.7); CALCIUM 8.5 mg/dL (8.5-10.1); CREATININE 0.8 mg/dL (0.7-1.3); GFR 101.5; POTASSIUM 3.7 mmol/L (3.5-5.1); TOTAL BILIRUBIN 0.2 mg/dL (0.2-1.0); TOTAL PROTEIN 6.1 g/dL (6.4-8.2); VANC TR 20.2 mcg/mL (10.0-20.0)
[2020-02-09 03:09] LABS: HEMATOCRIT 20.8 % (39.0-53.0); HEMOGLOBIN 6.9 g/dL (13.0-17.5)
--- NOTE | 2020-02-09 03:30 | NUR ---
Dr. Lima notified of critical hgb 6.9 and hct 20.8. No orders received.
[2020-02-09] MEDS: VANCOMYCIN PER PHARMACY MC PRN ×2 (03:38→11:24)
--- NOTE | 2020-02-09 03:38 | NUR ---
Pharmacy Vancomycin Dosing Note S:Consulted to monitor and dose vancomycin started 02/05/20. O:INO DONOHUE is a 54 year old M with Cellulitis Bacteremia . Height: 5 feet, 11 inches Weight: 55.0 kg [place] Body Weight: 75.30 Adjusted Body Weight: 67.18 Dosing Weight: Actual Other Antibiotics: CEFEPIME Linezolid added per ID LABS: Last BUN: 13 Last Creatinine: 0.6 Creatinine Clearance: about 80-85 mL/min Last WBC: 13.6 Last Procalcitonin: NA (cellulitis/bacteremia) Tmax (past 24 hours): AFEBRILE Microbiology: 02/05 Blood: GPC in clusters growing in repeat BC 02/03 Blood: GPC in 02/25 I/O: 540/1050 Drug Levels: Last Trough level: 20.2 on 02/09/20 at 0230 Last dose given 02/08/20 at 0515 Vancomycin Dosing: Loading Dose: 1500 mg x1 Dosing Weight: Actual Target Trough: 15-20 A: Based on: TROUGH P: 1. Begin Vancomycin 1000 mg IV q12h 2. Follow up Trough level IF NEEDED 3. Pharmacy will continue to monitor, follow and adjust therapy as needed. STEVE STEEL RPH, 02/09/20 0338 Signed: 02/09/20 at 0339 by STEVE STEEL RPH PHA
[2020-02-09] MEDS: CEFEPIME HCL IV Push 2 GM VIAL. IVP SCH (05:25)
[2020-02-09] MEDS: VANCOMYCIN 1 GM in IV NORMAL SALINE 250ML 250 ML IV SCH ×2 (05:26→18:02)
[2020-02-09] MEDS: ASPIRIN ENTERIC COATED 81 MG TABLET.DR. PO SCH (08:00)
[2020-02-09] MEDS: INSULIN LISPRO 300 UNITS/3 ML VIAL. SQ SCH ×3 (08:00→17:00)
--- NOTE | 2020-02-09 08:01 | PDOC ---
GENERAL General: vss and afebrile. sugars fair. awake and alert. bone scan negative for infectious source leg and not sure where pain coming from. VINCE today. ongoing iv antibiotics. exam stable. Hb 6.9 this am without any signs blood loss. will repeat this pm and may need transfusion. VITAL SIGNS/I&O Vital Signs/I&O: Vital Signs Date Time Temp Pulse Resp B/P (MAP) Pulse Ox O2 Delivery O2 Flow Rate FiO2 02/09/20 07:15 98.4 95 20 125/66 (85) 95 Room Air 98.4 I & O 02/08/20 02/08/20 02/09/20 15:00 23:00 07:00 Intake Total 600 ml 790 ml 610 ml Output Total 300 ml 300 ml Balance 600 ml 490 ml 310 ml ALLERGIES Allergies: Allergies Coded Allergies Type Severity Reaction Last Updated Verified sulfamethoxazole Allergy Intermediate Rash 01/21/20 Yes trimethoprim Allergy Intermediate Rash 01/21/20 Yes I S O L A T I O N *CONTACT* Allergy Unknown 01/21/20 Yes MEDS Medications: Current Medications Medications (Trade) Dose Ordered Sig/Tory Route PRN Reason Start Time Stop Time Status Last Admin Dose Admin Vancomycin HCl (Vancomycin Trough Level) 1 each 1X ONCE MC 02/09/20 02:30 02/09/20 02:31 DC 02/09/20 02:30 Vancomycin HCl 1 gm/Sodium Chloride 250 ml @ 250 mls/hr Q12H IV 02/09/20 06:00 02/09/20 05:26 LAB Lab: Laboratory Tests Test 02/08/20 11:30 02/08/20 16:51 02/08/20 20:23 02/09/20 02:35 Glucose (Fingerstick) 212 mg/dL (70-99) H 106 mg/dL (70-99) H 218 mg/dL (70-99) H White Blood Count 12.2 x10^3/uL (4.0-11.0) H Red Blood Count 2.53 x10^6/uL (4.30-5.70) L Hemoglobin 6.9 g/dL (13.0-17.5) *L Hematocrit 20.8 % (39.0-53.0) *L Mean Corpuscular Volume 82 fL (79-100) Mean Corpuscular Hemoglobin 27 pg (25-35) Mean Corpuscular Hemoglobin Concent 33 g/dL (31-37) Red Cell Distribution Width 16.8 % (11.5-14.5) H Platelet Count 533 x10^3/uL (140-400) H Neutrophils (%) (Auto) 84 % (31-73) H Lymphocytes (%) (Auto) 7 % (24-48) L Monocytes (%) (Auto) 7 % (0-9) Eosinophils (%) (Auto) 1 % (0-3) Basophils (%) (Auto) 1 % (0-3) Neutrophils # (Auto) 10.3 x10^3/uL (1.8-7.7) H Lymphocytes # (Auto) 0.9 x10^3/uL (1.0-4.8) L Monocytes # (Auto) 0.8 x10^3/uL (0.0-1.1) Eosinophils # (Auto) 0.2 x10^3/uL (0.0-0.7) Basophils # (Auto) 0.1 x10^3/uL (0.0-0.2) Erythrocyte Sedimentation Rate > 130 (0-15) H Sodium Level 133 mmol/L (136-145) L Potassium Level 3.7 mmol/L (3.5-5.1) Chloride Level 96 mmol/L (98-107) L Carbon Dioxide Level 30 mmol/L (21-32) Anion Gap 7 (6-14) Blood Urea Nitrogen 14 mg/dL (8-26) Creatinine 0.8 mg/dL (0.7-1.3) Estimated GFR (Cockcroft-Gault) 101.5 BUN/Creatinine Ratio 18 (6-20) Glucose Level 257 mg/dL (70-99) H Calcium Level 8.5 mg/dL (8.5-10.1) Total Bilirubin 0.2 mg/dL (0.2-1.0) Aspartate Amino Transferase (AST) 12 U/L (15-37) L Alanine Aminotransferase (ALT) 12 U/L (16-63) L Alkaline Phosphatase 122 U/L (46-116) H Total Protein 6.1 g/dL (6.4-8.2) L Albumin 1.2 g/dL (3.4-5.0) L Albumin/Globulin Ratio 0.2 (1.0-1.7) L Vancomycin Level Trough 20.2 mcg/mL (10.0-20.0) H Vancomycin Last Dose Date [id number] Vancomycin Last Dose Time 1500 Test 02/09/20 07:31 Glucose (Fingerstick) 187 mg/dL (70-99) H Laboratory Tests 02/09/20 02:35 Laboratory Tests 02/09/20 02:35 Nutrition Consultation Dietary Evaluation: Recommendations by RD: Dietary education by RD, Increase Calorie Intake, Protein supplementation Comments: ADA diet Glucerna tid Expected Outcomes/Goals: to meet >75% est nutr needs Interpretation of weight loss: >5% in 1 month Malnutrition Findings: Muscle Mass (Severe): Severe Depletion Body Fat Depletion (Non Severe: Mod to Severe Weight Status: Underweight APPLPAT MD Feb 09, 2020 08:01
[2020-02-09] MEDS: LACTOBACILLUS RHAMNOSUS GG 1 CAPSULE. PO SCH ×2 (09:00→20:51)
--- NOTE | 2020-02-09 09:19 | PDOC ---
Infectious Disease Note Subjective: Subjective Pt says has leg pain ,says it is from injury on the rt thigh about couple of weeks ago at home back pain has improved dfrainage from scalp has improved Denies fevers/chill/SOA Vital Signs: Vital Signs Vital Signs Date Time Temp Pulse Resp B/P (MAP) Pulse Ox O2 Delivery O2 Flow Rate FiO2 02/09/20 07:30 Room Air 02/09/20 07:15 98.4 95 20 125/66 (85) 95 98.4 Physical Exam: PHYSICAL EXAM GENERAL: Propped up in bed, alert, looks better, more conversant HEENT: Right eye cataract. Oropharynx pink and dry. No lesions seen. In dentures. Two fairly large scalp wounds, scabbed with purulent drainage and mild erythema. NECK: Supple. LUNGS: Clear to auscultation. HEART: S1, S2. no murmur appreciated ABDOMEN: Nondistended, soft, nontender with bowel sounds present. EXTREMITIES: Previous left BKA. Right index finger wound healing, dry scab, couple sutures still in place. Left fifth finger wound also scabbed, no signs of infection. back no wounds, rt foot amputation previous scar well healed SKIN: Warm to touch. No signs of rash. NEUROLOGIC: Alert, answers questions appropriately Medications: Inpatient Meds: Current Medications Medications (Trade) Dose Ordered Sig/Tory Start Time Stop Time Status Last Admin Dose Admin Aspirin (Ecotrin) 81 mg DAILYWBKFT 02/05/20 08:00 02/08/20 09:09 81 MG Cefepime HCl (Maxipime) 2 gm Q8HRS 02/05/20 15:00 02/09/20 05:25 2 GM Insulin Glargine (Lantus Syringe) 20 unit QHS 02/04/20 21:00 02/08/20 21:27 20 UNIT Insulin Human Lispro (HumaLOG) 60 units TIDWMEALS 02/05/20 08:00 02/08/20 12:30 60 UNITS Lactobacillus Rhamnosus (Culturelle) 1 cap BID 02/05/20 21:00 02/08/20 21:24 1 CAP Linezolid/Dextrose 300 ml @ 300 mls/hr Q12HR 02/07/20 15:00 02/08/20 21:25 300 MLS/HR Non-Formulary Medication (Cenegermin-Bkbj (Oxervate)) 1 ml 6XDAY 02/04/20 22:00 02/06/20 15:47 DC Ondansetron HCl (Zofran) 4 mg PRN Q8HRS PRN 02/04/20 16:30 02/05/20 16:29 DC Oxycodone HCl (Roxicodone) 15 mg PRN Q4HRS PRN 02/04/20 20:15 02/09/20 05:25 15 MG Pharmacy Consult (C.diff Med Screen By Rx) 1 each 1X ONCE 02/05/20 00:30 02/05/20 00:31 Cancel Sodium Chloride 1,000 ml @ 100 mls/hr Q10H 02/04/20 16:22 02/05/20 16:21 DC 02/05/20 12:22 100 MLS/HR Vancomycin HCl (Vanco Per Pharmacy) 1 each PRN DAILY PRN 02/05/20 15:00 02/09/20 03:38 1 EACH Vancomycin HCl (Vancomycin Trough Level) 1 each 1X ONCE 02/09/20 02:30 02/09/20 02:31 DC 02/09/20 02:30 1 EACH Vancomycin HCl 1.25 gm/Sodium Chloride 250 ml @ 167 mls/hr Q12H 02/07/20 15:00 02/09/20 03:11 DC 02/08/20 14:32 167 MLS/HR Vancomycin HCl 1.5 gm/Sodium Chloride 500 ml @ 250 mls/hr 1X ONCE 02/04/20 16:15 02/04/20 18:14 DC 02/04/20 17:29 250 MLS/HR Vancomycin HCl 1 gm/Sodium Chloride 250 ml @ 250 mls/hr Q12H 02/09/20 06:00 02/09/20 05:26 250 MLS/HR Labs: Lab Laboratory Tests Test 02/08/20 11:30 02/08/20 16:51 02/08/20 20:23 02/09/20 02:35 Glucose (Fingerstick) 212 mg/dL (70-99) 106 mg/dL (70-99) 218 mg/dL (70-99) White Blood Count 12.2 x10^3/uL (4.0-11.0) Red Blood Count 2.53 x10^6/uL (4.30-5.70) Hemoglobin 6.9 g/dL (13.0-17.5) Hematocrit 20.8 % (39.0-53.0) Mean Corpuscular Volume 82 fL (79-100) Mean Corpuscular Hemoglobin 27 pg (25-35) Mean Corpuscular Hemoglobin Concent 33 g/dL (31-37) Red Cell Distribution Width 16.8 % (11.5-14.5) Platelet Count 533 x10^3/uL (140-400) Neutrophils (%) (Auto) 84 % (31-73) Lymphocytes (%) (Auto) 7 % (24-48) Monocytes (%) (Auto) 7 % (0-9) Eosinophils (%) (Auto) 1 % (0-3) Basophils (%) (Auto) 1 % (0-3) Neutrophils # (Auto) 10.3 x10^3/uL (1.8-7.7) Lymphocytes # (Auto) 0.9 x10^3/uL (1.0-4.8) Monocytes # (Auto) 0.8 x10^3/uL (0.0-1.1) Eosinophils # (Auto) 0.2 x10^3/uL (0.0-0.7) Basophils # (Auto) 0.1 x10^3/uL (0.0-0.2) Erythrocyte Sedimentation Rate > 130 (0-15) Sodium Level 133 mmol/L (136-145) Potassium Level 3.7 mmol/L (3.5-5.1) Chloride Level 96 mmol/L (98-107) Carbon Dioxide Level 30 mmol/L (21-32) Anion Gap 7 (6-14) Blood Urea Nitrogen 14 mg/dL (8-26) Creatinine 0.8 mg/dL (0.7-1.3) Estimated GFR (Cockcroft-Gault) 101.5 BUN/Creatinine Ratio 18 (6-20) Glucose Level 257 mg/dL (70-99) Calcium Level 8.5 mg/dL (8.5-10.1) Total Bilirubin 0.2 mg/dL (0.2-1.0) Aspartate Amino Transf (AST/SGOT) 12 U/L (15-37) Alanine Aminotransferase (ALT/SGPT) 12 U/L (16-63) Alkaline Phosphatase 122 U/L (46-116) Total Protein 6.1 g/dL (6.4-8.2) Albumin 1.2 g/dL (3.4-5.0) Albumin/Globulin Ratio 0.2 (1.0-1.7) Vancomycin Level Trough 20.2 mcg/mL (10.0-20.0) Vancomycin Last Dose Date Vancomycin Last Dose Time 1500 Test 02/09/20 07:31 Glucose (Fingerstick) 187 mg/dL (70-99) Objective: Assessment: MRSA Bacteremia POA 02/03 , 02/05 source scalp abscess Recurrent scalp abscess - no surgical plans -h/o I and D, 01/18. MRSA - Pt was dc on IV oritavancin - Previously had been on linezolid though he did not fill it after previous discharge Leukocytosis improving h/o flexor tenosynovitis of the right index finger with peritendinous abscess/osteo s/p I and D, 01/[address] Burt. MRSA h/o left 4th & 5th finger abscesses s/p I and D, 01/08 Diabetes mellitus poorly controlled. Severe peripheral neuropathy with multiple injuries and wilson SULFA ALLERGY History of Clostridium difficile. History of MDRO infection including MRSA, Klebsiella, Enterococcus, Citrobacter, and group B strep. Status post left below-knee amputation. h/o Noncomplaince Rt thigh pain , bone scan per primary shows nonspecific changes, no clinical changes s/o Osteomyelitis at this time Plan: Plan of Care DC Cefepime, linezolid vancomycin per pharmacy protocol last vanc trough > 20, creat is wnl Monitor renal function closely add dapto suscep to mrsa f/u Repeat BC 02/07 VINCE ,consult cardiology nonvascular u/s of rt lower ext Local wound care Contact isolation Overall Prognosis poor D/w nursing SON BECERRA MD Feb 09, 2020 09:19
--- NOTE | 2020-02-09 10:11 | NUR ---
SW following. Discussed with RN, pt possibly having a VINCE today. RN advised pt not ready to discharge today. SW will continue to follow.
--- NOTE | 2020-02-09 11:49 | PDOC2 ---
[facility] [employer] 02/09/20 1149: CARDIAC CONSULT DATE OF CONSULT Date of Consult DATE: 02/09/20 TIME: 11:33 REASON FOR CONSULT Reason for Consult: IVNCE for bactermia REFERRING PHYSICIAN Referring Physician: Serena SOURCE Source: Chart review, Patient HISTORY OF PRESENT ILLNESS HISTORY OF PRESENT ILLNESS This is a 54 yo male admitted for increasing weakness and wound to his head. He had RLE open revascularization and necortic removal and debridement to toes in 08/2019 and also roel I & Ds as well as his scalp recently. He was evaluated by ID and noted with recurrent scalp abscess and bactermia and hx of MDR and uncontrolled DM. No cardiac symptoms and VINCE has been requested to rule out any endocarditis. No prior hx of heart disease but significant for severe PAD. No hx of esophageal strictures and actually had an EGD in the past accdg to him without difficutly. PAST MEDICAL HISTORY Cardiovascular: HTN, Other (PAD) Psych: Anxiety Musculoskeletal: low back pain (failed back syndrome), Osteoarthritis ENT: Other (right eye blindness) PAST SURGICAL HISTORY Past Surgical History LBKA, hand surgery both, right great toe amputation, right eye surgeries, RLE open revascularization FAMILY HISTORY Family History noncontributory SOCIAL HISTORY Smoke: <1 pack per day ALCOHOL: none Drugs: None Lives: with Family CURRENT MEDICATIONS CURRENT MEDICATIONS Current Medications Medications (Trade) Dose Ordered Sig/Tory Route PRN Reason Start Time Stop Time Status Last Admin Dose Admin Vancomycin HCl (Vancomycin Trough Level) 1 each 1X ONCE MC 02/09/20 02:30 02/09/20 02:31 DC 02/09/20 02:30 Vancomycin HCl 1 gm/Sodium Chloride 250 ml @ 250 mls/hr Q12H IV 02/09/20 06:00 02/09/20 05:26 ALLERGIES ALLERGIES: Coded Allergies: sulfamethoxazole (Verified Allergy, Intermediate, Rash, 02/09/20) trimethoprim (Verified Allergy, Intermediate, Rash, 02/09/20) I S O L A T I O N *CONTACT* (Verified Allergy, Unknown, 02/09/20) mrsa ROS Review of System 14 point ROS evaluated with pertinent positives noted per HPI PHYSICAL EXAM General: Alert, Oriented X3, Cooperative, No acute distress HEENT: Atraumatic, Mucous membr. moist/pink Lungs: Clear to auscultation, Normal air movement Heart: Regular rate, Normal S1, Normal S2, Other (2/6 systolic murmur to LLS border) Abdomen: Soft, No tenderness Extremities: No cyanosis Skin: Other (scalp abscess) Neuro: Normal speech, Sensation intact Psych/Mental Status: Mental status NL, Mood NL MUSCULOSKELETAL: No joint tenderness VITALS/I&O VITALS/I&O: Vital Signs Date Time Temp Pulse Resp B/P (MAP) Pulse Ox O2 Delivery O2 Flow Rate FiO2 02/09/20 11:13 98.4 72 18 133/49 (77) 99 Room Air 98.4 I & O 02/08/20 02/08/20 02/09/20 15:00 23:00 07:00 Intake Total 600 ml 790 ml 610 ml Output Total 300 ml 300 ml Balance 600 ml 490 ml 310 ml LABS Lab: Laboratory Tests Test 02/08/20 16:51 02/08/20 20:23 02/09/20 02:35 02/09/20 07:31 Glucose (Fingerstick) 106 mg/dL (70-99) H 218 mg/dL (70-99) H 187 mg/dL (70-99) H White Blood Count 12.2 x10^3/uL (4.0-11.0) H Red Blood Count 2.53 x10^6/uL (4.30-5.70) L Hemoglobin 6.9 g/dL (13.0-17.5) *L Hematocrit 20.8 % (39.0-53.0) *L Mean Corpuscular Volume 82 fL (79-100) Mean Corpuscular Hemoglobin 27 pg (25-35) Mean Corpuscular Hemoglobin Concent 33 g/dL (31-37) Red Cell Distribution Width 16.8 % (11.5-14.5) H Platelet Count 533 x10^3/uL (140-400) H Neutrophils (%) (Auto) 84 % (31-73) H Lymphocytes (%) (Auto) 7 % (24-48) L Monocytes (%) (Auto) 7 % (0-9) Eosinophils (%) (Auto) 1 % (0-3) Basophils (%) (Auto) 1 % (0-3) Neutrophils # (Auto) 10.3 x10^3/uL (1.8-7.7) H Lymphocytes # (Auto) 0.9 x10^3/uL (1.0-4.8) L Monocytes # (Auto) 0.8 x10^3/uL (0.0-1.1) Eosinophils # (Auto) 0.2 x10^3/uL (0.0-0.7) Basophils # (Auto) 0.1 x10^3/uL (0.0-0.2) Erythrocyte Sedimentation Rate > 130 (0-15) H Sodium Level 133 mmol/L (136-145) L Potassium Level 3.7 mmol/L (3.5-5.1) Chloride Level 96 mmol/L (98-107) L Carbon Dioxide Level 30 mmol/L (21-32) Anion Gap 7 (6-14) Blood Urea Nitrogen 14 mg/dL (8-26) Creatinine 0.8 mg/dL (0.7-1.3) Estimated GFR (Cockcroft-Gault) 101.5 BUN/Creatinine Ratio 18 (6-20) Glucose Level 257 mg/dL (70-99) H Calcium Level 8.5 mg/dL (8.5-10.1) Total Bilirubin 0.2 mg/dL (0.2-1.0) Aspartate Amino Transferase (AST) 12 U/L (15-37) L Alanine Aminotransferase (ALT) 12 U/L (16-63) L Alkaline Phosphatase 122 U/L (46-116) H Total Protein 6.1 g/dL (6.4-8.2) L Albumin 1.2 g/dL (3.4-5.0) L Albumin/Globulin Ratio 0.2 (1.0-1.7) L Vancomycin Level Trough 20.2 mcg/mL (10.0-20.0) H Vancomycin Last Dose Date Vancomycin Last Dose Time 1500 Test 02/09/20 09:23 02/09/20 11:02 Special Test - Miscellaneous See separate report Glucose (Fingerstick) 193 mg/dL (70-99) H Laboratory Tests 02/09/20 02:35 Laboratory Tests 02/09/20 02:35 ASSESSMENT/PLAN ASSESSMENT/PLAN 1. MRSA Bacteremia with recurrent abscess 2. PAD with recent RLE open revascularization 3. Anemia: Hgb 6.9 4. Multiple amputations 5. MDRO 6. DM2 Recommendations 1. VINCE today at 1:30. Risks and benefits discussed and agreeable to proceed 2. Antibiotics per ID. Transfusion per PCP 3. Consider statin, defer to PCP. on ASA. DEEDEE STALEY MD 02/09/20 1538: CARDIAC CONSULT ASSESSMENT/PLAN ASSESSMENT/PLAN Patient seen and examined MRSA bacteremia. Recurrent abscesses. Followed by the ID service. Continuing medications. Transesophageal echocardiogram later today. Risks and benefits discussed with the patient. Peripheral arterial disease. Recent right lower extremity revascularization. Continuing antibiotics as per ID and followed by vascular surgery. Of note the patient has unfortunately had multiple amputations. Anemia. Hemoglobin of 6.9. Monitoring H&H. Diabetes mellitus. As per the primary service. Thank you for allowing us to participate in the care of your patient. CHEL [facility] APRN Feb 09, 2020 11:49 DEEDEE STALEY MD Feb 09, 2020 15:38
--- NOTE | 2020-02-09 12:47 | RAD ---
EXAM: US extremity nonvascular-right thigh DATE: 02/09/2020 9:49 AM COMPARISON: None INDICATION: Mass lesion, characterize and localize, history of injury TECHNIQUE: Longitudinal and transverse imaging with intermittent Doppler sampling completed with attention to right anterior thigh at the site of palpable abnormality FINDINGS: At at the palpable abnormality within the proximal right thigh there is a 5.5 x 2.6 x 5.2 cm heterogeneous collection, containing portions are hyperechoic and hypoechoic. At the midportion of the right thigh there is a 6.2 x 1.6 x 1.4 cm heterogeneously predominantly hypoechoic collection. At the distal radial anterior right thigh, there is a 5.7 x 2.4 x 4.8 cm collection containing simple appearing fluid within internal septation. IMPRESSION: 1. The 2 heterogeneous collections in the proximal and midportion of the right thigh at the site of patient injury is favored to represent hematoma. However as underlying mass may be obscured by the hemorrhage, follow-up ultrasound in 12 weeks is recommended to assess evolution or further evaluation with contrast-enhanced MRI. 2. Simple fluid collection in the distal anterior right thigh is nonspecific, possibly cystic structure or ganglion or joint effusion. Recommend close attention on follow-up ultrasound or MRI. Electronically signed by: Luis Alberto Montaño MD (02/09/2020 12:45 PM) [id number]
--- NOTE | 2020-02-09 13:35 | PDOC2 ---
CONSULT Date of Consult Date of Consult DATE: 02/05/20 TIME: 13:32 Reason for Consult Reason for Consult: Multiple wounds previously I&D scalp abscess Referring Physician Referring Physician: Clarence Identification/Chief Complaint Chief Complaint Multiple wounds and infections Source Source: Chart review, Patient History of Present Illness Reason for Visit: 54-year-old male recently hospitalized for scalp abscess which was I&D by Dr. Yna and treated with local wound care. He returns now for multiple medical problems as well as continued skin infections cellulitis of his neck Past Medical History Cardiovascular: HTN, Other (PAD) Pulmonary: No pertinent hx CENTRAL NERVOUS SYSTEM: Periperal neuropathy Psych: Anxiety Musculoskeletal: low back pain (failed back syndrome), Osteoarthritis ENT: Other (right eye blindness) Endocrine: Diabetes Past Surgical History Past Surgical History: Other Family History Family History: Hypertension Social History <1 pack per day ALCOHOL: none Drugs: None Lives: with Family Current Problem List Problem List Problems Medical Problems: (1) Failure of outpatient treatment Status: Acute (2) Hyperglycemia Status: Acute (3) Hyponatremia Status: Acute (4) Weakness generalized Status: Acute Current Medications Current Medications Current Medications Vancomycin HCl 1.5 gm/Sodium Chloride 500 ml @ 250 mls/hr 1X ONCE IV Last administered on 02/04/20at 17:29; Start 02/04/20 at 16:15; Stop 02/04/20 at 18:14; Status DC Cefepime HCl (Maxipime) 2 gm 1X ONCE IVP Last administered on 02/04/20at 17:29; Start 02/04/20 at 16:15; Stop 02/04/20 at 16:20; Status DC Sodium Chloride 1,000 ml @ 1,000 mls/hr 1X ONCE IV Last administered on 02/04/20at 17:29; Start 02/04/20 at 16:30; Stop 02/04/20 at 17:29; Status DC Ondansetron HCl (Zofran) 4 mg PRN Q8HRS PRN IV NAUSEA/VOMITING; Start 02/04/20 at 16:30; Stop 02/05/20 at 16:29; Status DC Sodium Chloride 1,000 ml @ 100 mls/hr Q10H IV Last administered on 02/05/20at 12:22; Start 02/04/20 at 16:22; Stop 02/05/20 at 16:21; Status DC Oxycodone HCl (Roxicodone) 15 mg PRN Q4HRS PRN PO MODERATE TO SEVERE PAIN Last administered on 02/09/20at 05:25; Start 02/04/20 at 20:15 Aspirin (Ecotrin) 81 mg DAILYWBKFT PO Last administered on 02/08/20at 09:09; Start 02/05/20 at 08:00 Non-Formulary Medication (Cenegermin-Bkbj (Oxervate)) 1 ml 6XDAY OS ; Start 02/04/20 at 22:00; Stop 02/06/20 at 15:47; Status DC Insulin Glargine (Lantus Syringe) 20 unit QHS SQ Last administered on 02/08/20at 21:27; Start 02/04/20 at 21:00 Insulin Human Lispro (HumaLOG) 60 units TIDWMEALS SQ Last administered on 02/08/20at 12:30; Start 02/05/20 at 08:00 Pharmacy Consult (C.diff Med Screen By Rx) 1 each 1X ONCE MC ; Start 02/05/20 at 00:30; Stop 02/05/20 at 00:31; Status Cancel Cefepime HCl (Maxipime) 2 gm Q8HRS IVP Last administered on 02/09/20at 05:25; Start 02/05/20 at 15:00; Stop 02/09/20 at 11:34; Status DC Vancomycin HCl 1 gm/Sodium Chloride 250 ml @ 250 mls/hr Q12H IV Last administered on 02/07/20at 03:51; Start 02/05/20 at 15:00; Stop 02/07/20 at 13:36; Status DC Lactobacillus Rhamnosus (Culturelle) 1 cap BID PO Last administered on 02/08/20at 21:24; Start 02/05/20 at 21:00 Vancomycin HCl (Vanco Per Pharmacy) 1 each PRN DAILY PRN MC SEE COMMENTS Last administered on 02/09/20at 11:24; Start 02/05/20 at 15:00 Vancomycin HCl (Vancomycin Trough Level) 1 each 1X ONCE MC Last administered on 02/07/20at 02:30; Start 02/07/20 at 02:30; Stop 02/07/20 at 02:31; Status DC Linezolid/Dextrose 300 ml @ 300 mls/hr Q12HR IV Last administered on 02/09/20at 09:12; Start 02/07/20 at 15:00 Vancomycin HCl 1.25 gm/Sodium Chloride 250 ml @ 167 mls/hr Q12H IV Last administered on 02/08/20at 14:32; Start 02/07/20 at 15:00; Stop 02/09/20 at 03:11; Status DC Vancomycin HCl (Vancomycin Trough Level) 1 each 1X ONCE MC Last administered on 02/09/20at 02:30; Start 02/09/20 at 02:30; Stop 02/09/20 at 02:31; Status DC Vancomycin HCl 1 gm/Sodium Chloride 250 ml @ 250 mls/hr Q12H IV Last administered on 02/09/20at 05:26; Start 02/09/20 at 06:00 Active Scripts Active Aspirin Ec (Aspirin) 81 Mg Tablet.dr 81 Mg PO DAILYWBKFT 90 Days Clopidogrel (Clopidogrel Bisulfate) 75 Mg Tablet 75 Mg PO DAILYWBKFT 90 Days Reported Oxervate (Cenegermin-Bkbj) 1 Ml Drops 1 Ml OS 6XDAY 30 Days Oxycodone Hcl Immed.release (Oxycodone Hcl) 15 Mg Tablet 15 Mg PO PRN Q4HRS PRN Tresiba Flextouch U-100 (Insulin Degludec) 100 Unit/1 Ml Insuln.pen 20 Unit SQ HS Humalog (Insulin Lispro) 100 Unit/1 Ml Cartridge 60 Unit SQ TIDBFRMEAL Allergies Allergies: Coded Allergies: sulfamethoxazole (Verified Allergy, Intermediate, Rash, 02/09/20) trimethoprim (Verified Allergy, Intermediate, Rash, 02/09/20) I S O L A T I O N *CONTACT* (Verified Allergy, Unknown, 02/09/20) mrsa ROS Skin: Yes Other (multiple skin wounds and infection) Physical Exam General: Alert, Oriented X3, Cooperative, mild distress HEENT: PERRLA, EOMI, Other (scalp wound is healing nicely no signs of drainage, neck shows area of cellulitis with erythema) Lungs: Clear to auscultation, Normal air movement Heart: Regular rate, No murmurs Abdomen: Normal bowel sounds, Soft, No tenderness Extremities: No edema Skin: Other (multiple wounds on extremities with superficial skin infections cellulitis) Neuro: Normal speech Psych/Mental Status: Mental status NL Vitals VITALS Vital Signs Date Time Temp Pulse Resp B/P (MAP) Pulse Ox O2 Delivery O2 Flow Rate FiO2 02/09/20 11:13 98.4 72 18 133/49 (77) 99 Room Air 98.4 Labs Labs Laboratory Tests Test 02/07/20 16:43 02/07/20 20:11 02/08/20 04:00 02/08/20 07:35 Glucose (Fingerstick) 106 mg/dL (70-99) 148 mg/dL (70-99) 163 mg/dL (70-99) Creatinine 0.6 mg/dL (0.7-1.3) Estimated GFR (Cockcroft-Gault) 141.5 Test 02/08/20 11:30 02/08/20 16:51 02/08/20 20:23 02/09/20 02:35 Glucose (Fingerstick) 212 mg/dL (70-99) 106 mg/dL (70-99) 218 mg/dL (70-99) White Blood Count 12.2 x10^3/uL (4.0-11.0) Red Blood Count 2.53 x10^6/uL (4.30-5.70) Hemoglobin 6.9 g/dL (13.0-17.5) Hematocrit 20.8 % (39.0-53.0) Mean Corpuscular Volume 82 fL (79-100) Mean Corpuscular Hemoglobin 27 pg (25-35) Mean Corpuscular Hemoglobin Concent 33 g/dL (31-37) Red Cell Distribution Width 16.8 % (11.5-14.5) Platelet Count 533 x10^3/uL (140-400) Neutrophils (%) (Auto) 84 % (31-73) Lymphocytes (%) (Auto) 7 % (24-48) Monocytes (%) (Auto) 7 % (0-9) Eosinophils (%) (Auto) 1 % (0-3) Basophils (%) (Auto) 1 % (0-3) Neutrophils # (Auto) 10.3 x10^3/uL (1.8-7.7) Lymphocytes # (Auto) 0.9 x10^3/uL (1.0-4.8) Monocytes # (Auto) 0.8 x10^3/uL (0.0-1.1) Eosinophils # (Auto) 0.2 x10^3/uL (0.0-0.7) Basophils # (Auto) 0.1 x10^3/uL (0.0-0.2) Erythrocyte Sedimentation Rate > 130 (0-15) Sodium Level 133 mmol/L (136-145) Potassium Level 3.7 mmol/L (3.5-5.1) Chloride Level 96 mmol/L (98-107) Carbon Dioxide Level 30 mmol/L (21-32) Anion Gap 7 (6-14) Blood Urea Nitrogen 14 mg/dL (8-26) Creatinine 0.8 mg/dL (0.7-1.3) Estimated GFR (Cockcroft-Gault) 101.5 BUN/Creatinine Ratio 18 (6-20) Glucose Level 257 mg/dL (70-99) Calcium Level 8.5 mg/dL (8.5-10.1) Total Bilirubin 0.2 mg/dL (0.2-1.0) Aspartate Amino Transf (AST/SGOT) 12 U/L (15-37) Alanine Aminotransferase (ALT/SGPT) 12 U/L (16-63) Alkaline Phosphatase 122 U/L (46-116) Total Protein 6.1 g/dL (6.4-8.2) Albumin 1.2 g/dL (3.4-5.0) Albumin/Globulin Ratio 0.2 (1.0-1.7) Vancomycin Level Trough 20.2 mcg/mL (10.0-20.0) Vancomycin Last Dose Date Vancomycin Last Dose Time 1500 Test 02/09/20 07:31 02/09/20 09:23 02/09/20 11:02 Glucose (Fingerstick) 187 mg/dL (70-99) 193 mg/dL (70-99) Special Test - Miscellaneous See separate report Laboratory Tests Test 02/08/20 16:51 02/08/20 20:23 02/09/20 02:35 02/09/20 07:31 Glucose (Fingerstick) 106 mg/dL (70-99) 218 mg/dL (70-99) 187 mg/dL (70-99) White Blood Count 12.2 x10^3/uL (4.0-11.0) Red Blood Count 2.53 x10^6/uL (4.30-5.70) Hemoglobin 6.9 g/dL (13.0-17.5) Hematocrit 20.8 % (39.0-53.0) Mean Corpuscular Volume 82 fL (79-100) Mean Corpuscular Hemoglobin 27 pg (25-35) Mean Corpuscular Hemoglobin Concent 33 g/dL (31-37) Red Cell Distribution Width 16.8 % (11.5-14.5) Platelet Count 533 x10^3/uL (140-400) Neutrophils (%) (Auto) 84 % (31-73) Lymphocytes (%) (Auto) 7 % (24-48) Monocytes (%) (Auto) 7 % (0-9) Eosinophils (%) (Auto) 1 % (0-3) Basophils (%) (Auto) 1 % (0-3) Neutrophils # (Auto) 10.3 x10^3/uL (1.8-7.7) Lymphocytes # (Auto) 0.9 x10^3/uL (1.0-4.8) Monocytes # (Auto) 0.8 x10^3/uL (0.0-1.1) Eosinophils # (Auto) 0.2 x10^3/uL (0.0-0.7) Basophils # (Auto) 0.1 x10^3/uL (0.0-0.2) Erythrocyte Sedimentation Rate > 130 (0-15) Sodium Level 133 mmol/L (136-145) Potassium Level 3.7 mmol/L (3.5-5.1) Chloride Level 96 mmol/L (98-107) Carbon Dioxide Level 30 mmol/L (21-32) Anion Gap 7 (6-14) Blood Urea Nitrogen 14 mg/dL (8-26) Creatinine 0.8 mg/dL (0.7-1.3) Estimated GFR (Cockcroft-Gault) 101.5 BUN/Creatinine Ratio 18 (6-20) Glucose Level 257 mg/dL (70-99) Calcium Level 8.5 mg/dL (8.5-10.1) Total Bilirubin 0.2 mg/dL (0.2-1.0) Aspartate Amino Transf (AST/SGOT) 12 U/L (15-37) Alanine Aminotransferase (ALT/SGPT) 12 U/L (16-63) Alkaline Phosphatase 122 U/L (46-116) Total Protein 6.1 g/dL (6.4-8.2) Albumin 1.2 g/dL (3.4-5.0) Albumin/Globulin Ratio 0.2 (1.0-1.7) Vancomycin Level Trough 20.2 mcg/mL (10.0-20.0) Vancomycin Last Dose Date Vancomycin Last Dose Time 1500 Test 02/09/20 09:23 02/09/20 11:02 Special Test - Miscellaneous See separate report Glucose (Fingerstick) 193 mg/dL (70-99) Assessment/Plan Assessment/Plan Status post scalp I&D for abscess healing well, cellulitis and other skin infections would treat medically with antibiotics currently no role for incision and drainage MALLIKA SUÁREZ MD Feb 09, 2020 13:35
[2020-02-09] MEDS: IV RINGERS,LACTATED 1000ML 1,000 ML IV SCH (13:55)
[2020-02-09] MEDS ORDERED: PHENYLEPHRINE in 0.9% NACL PF 1 MG/10 ML SYRINGE. IV ONE (14:00)
[2020-02-09] MEDS ORDERED: LIDOCAINE 2% PF 5 ML VIAL. ONE (14:00)
[2020-02-09] MEDS ORDERED: BENZOCAINE ONE 20% MUCOSAL SPRAY. MM (14:00)
[2020-02-09] MEDS ORDERED: LIDOCAINE 2% TOPICAL JELLY 30GM TUBE. TP ONE (14:00)
[2020-02-09] MEDS ORDERED: LIDOCAINE 2% VISCOUS 15 ML SOLUTION. SWSW ONE (14:00)
--- NOTE | 2020-02-09 15:06 | CARD ---
MR#: [id number] Date of Study: 02/09/2020 Ordering Physician: SON BECERRA, Referring Physician: SON BECERRA, Tech: Ginger Riggins RDCS APPROVED REPORT EXAM: Transesophageal echocardiogram with color flow Doppler. INDICATION Infection:Rule out subacute bacterial endocarditis Reason For Test : Rule out endocarditis. PROCEDURE After obtaining informed consent, patient underwent transesophageal echo in the PACU. Type of Sedation : General Anesthesia Sedation was administered by Pricila Gudino CRNA, Lauri Burgos MD. Sedation was achieved with Propofol 80 mg intravenously. Transesophageal probe was inserted and advanced into esophagus by Wojciech Villaseñor MD. The VINCE was performed without complications. Throughout the procedure, the blood pressure, pulse oximetry, cardiac rhythm, and rate were monitored . The patient tolerated the procedure without adverse effects. Recovery from general anesthesia was une ventful and vital signs were stable. LEFT VENTRICLE The left ventricle is normal size. There is normal left ventricular wall thickness. The left ventricu lar systolic function is normal and the ejection fraction is within normal range. The Ejection Fracti on is 55-60%. There is normal LV segmental wall motion. RIGHT VENTRICLE The right ventricle is normal size. The right ventricular systolic function is normal. ATRIA The left atrium size is normal. The right atrium size is normal. There is no thrombus noted in the le ft atrial appendage. AORTIC VALVE The aortic valve is mildly calcified but opens well. Doppler and Color Flow revealed no significant a ortic regurgitation. There is no significant aortic valvular stenosis. There is no aortic valvular ve getation. MITRAL VALVE The mitral valve is normal in structure and function. No vegetation is visualized. There is no eviden ce of mitral valve prolapse. Doppler and Color-flow revealed trace to mild mitral regurgitation. TRICUSPID VALVE The tricuspid valve is normal in structure and function. Doppler and Color Flow revealed trace to mil d tricuspid regurgitation. There is no tricuspid valve prolapse or vegetation. PULMONIC VALVE The pulmonary valve is normal in structure and function. No vegetation is visualized. Doppler and Col or Flow revealed trace pulmonic valvular regurgitation. Critical Notification Critical Value: No <Conclusion> The left ventricle is normal size. The left ventricular systolic function is normal and the ejection fraction is within normal range. The Ejection Fraction is 55-60%. Doppler and Color Flow revealed no significant aortic regurgitation. There is no significant aortic valvular stenosis. There is no aortic valvular vegetation. Doppler and Color-flow revealed trace to mild mitral regurgitation. Doppler and Color Flow revealed trace to mild tricuspid regurgitation. No evidence of a vegetation. Signed by : Wojciech Villaseñor MD Electronically Approved : 02/09/2020 15:06:03
[2020-02-09 16:17] LABS: BASO # 0.1 x10^3/uL (0.0-0.2); BASO % 1 % (0-3); EOS # 0.1 x10^3/uL (0.0-0.7); EOS % 1 % (0-3); HEMATOCRIT 22.2 % (39.0-53.0); HEMOGLOBIN 7.4 g/dL (13.0-17.5); LYMPH # 0.8 x10^3/uL (1.0-4.8); LYMPH % 8 % (24-48); MEAN CORPUSCULAR HEMOGLOBIN 27 pg (25-35); MEAN CORPUSCULAR HGB CONC 33 g/dL (31-37); MEAN CORPUSCULAR VOLUME 82 fL (79-100); MONO # 0.6 x10^3/uL (0.0-1.1); MONO % 7 % (0-9); NEUT # 8.2 x10^3/uL (1.8-7.7); NEUT % 84 % (31-73); PLATELET COUNT 577 x10^3/uL (140-400); RED BLOOD COUNT 2.71 x10^6/uL (4.30-5.70); RED CELL DISTRIBUTION WIDTH 16.8 % (11.5-14.5); WHITE BLOOD COUNT 9.7 x10^3/uL (4.0-11.0)
[2020-02-09] MEDS: INSULIN GLARGINE SYRINGE. SQ SCH (20:58)
[2020-02-10 02:49] VITALS: BP 129/69
[2020-02-10] MEDS: IV RINGERS,LACTATED 1000ML 1,000 ML IV SCH ×2 (03:20→16:40)
[2020-02-10] MEDS: oxyCODONE IR 5 MG TABLET PO PRN ×4 (04:12→22:01)
[2020-02-10] MEDS: VANCOMYCIN 1 GM in IV NORMAL SALINE 250ML 250 ML IV SCH ×2 (07:10→16:30)
[2020-02-10 07:15] VITALS: BP 132/65
[2020-02-10 07:42] LABS: BASO # 0.1 x10^3/uL (0.0-0.2); BASO % 1 % (0-3); EOS # 0.1 x10^3/uL (0.0-0.7); EOS % 1 % (0-3); HEMATOCRIT 22.1 % (39.0-53.0); HEMOGLOBIN 7.3 g/dL (13.0-17.5); LYMPH % 10 % (24-48); MEAN CORPUSCULAR HEMOGLOBIN 27 pg (25-35); MEAN CORPUSCULAR HGB CONC 33 g/dL (31-37); MEAN CORPUSCULAR VOLUME 82 fL (79-100); MONO # 0.6 x10^3/uL (0.0-1.1); MONO % 6 % (0-9); NEUT # 8.6 x10^3/uL (1.8-7.7); NEUT % 82 % (31-73); PLATELET COUNT 632 x10^3/uL (140-400); RED BLOOD COUNT 2.69 x10^6/uL (4.30-5.70); RED CELL DISTRIBUTION WIDTH 17.5 % (11.5-14.5); WHITE BLOOD COUNT 10.4 x10^3/uL (4.0-11.0)
[2020-02-10] MEDS: INSULIN LISPRO 300 UNITS/3 ML VIAL. SQ SCH ×3 (08:00→16:32)
[2020-02-10 08:06] LABS: CALCIUM 8.8 mg/dL (8.5-10.1); CREATININE 0.6 mg/dL (0.7-1.3); GFR 141.5; POTASSIUM 3.6 mmol/L (3.5-5.1)
[2020-02-10] MEDS: LACTOBACILLUS RHAMNOSUS GG 1 CAPSULE. PO SCH ×2 (08:31→22:00)
[2020-02-10] MEDS: ASPIRIN ENTERIC COATED 81 MG TABLET.DR. PO SCH (08:31)
--- NOTE | 2020-02-10 08:52 | PDOC ---
GENERAL General: vss and tmax 101.1. awake and alert and pushing for dc again. chest clear, scalp same, heart regular, abdomen benign, us right thigh with fluid collection that is likely hematoma. continue present care. VITAL SIGNS/I&O Vital Signs/I&O: Vital Signs Date Time Temp Pulse Resp B/P (MAP) Pulse Ox O2 Delivery O2 Flow Rate FiO2 02/10/20 08:41 20 02/10/20 07:15 99.3 73 132/65 (87) 96 Room Air 99.3 02/09/20 14:32 2 I & O 02/09/20 02/09/20 02/10/20 15:00 23:00 07:00 Intake Total 300 ml 600 ml Output Total 1050 ml Balance 300 ml -1050 ml 600 ml ALLERGIES Allergies: Allergies Coded Allergies Type Severity Reaction Last Updated Verified sulfamethoxazole Allergy Intermediate Rash 02/09/20 Yes trimethoprim Allergy Intermediate Rash 02/09/20 Yes I S O L A T I O N *CONTACT* Allergy Unknown 02/09/20 Yes MEDS Medications: Current Medications Medications (Trade) Dose Ordered Sig/Tory Route PRN Reason Start Time Stop Time Status Last Admin Dose Admin Lidocaine HCl (Viscous Lidocaine) 15 ml 1X ONCE SWSW 02/09/20 14:00 02/09/20 14:01 DC 02/09/20 13:57 Benzocaine (Hurricaine One) 2 spray 1X ONCE MM 02/09/20 14:00 02/09/20 14:01 DC 02/09/20 13:57 Lidocaine HCl (Xylocaine 2% Topical 30gm Tube) 1 gianna 1X ONCE TP 02/09/20 14:00 02/09/20 14:01 DC 02/09/20 13:57 Ringer's Solution 1,000 ml @ 75 mls/hr [id number] IV 02/09/20 14:00 02/09/20 13:55 LAB Lab: Laboratory Tests Test 02/09/20 09:23 02/09/20 11:02 02/09/20 16:10 02/09/20 16:49 Special Test - Miscellaneous See separate report Glucose (Fingerstick) 193 mg/dL (70-99) H 170 mg/dL (70-99) H White Blood Count 9.7 x10^3/uL (4.0-11.0) Red Blood Count 2.71 x10^6/uL (4.30-5.70) L Hemoglobin 7.4 g/dL (13.0-17.5) L Hematocrit 22.2 % (39.0-53.0) L Mean Corpuscular Volume 82 fL (79-100) Mean Corpuscular Hemoglobin 27 pg (25-35) Mean Corpuscular Hemoglobin Concent 33 g/dL (31-37) Red Cell Distribution Width 16.8 % (11.5-14.5) H Platelet Count 577 x10^3/uL (140-400) H Neutrophils (%) (Auto) 84 % (31-73) H Lymphocytes (%) (Auto) 8 % (24-48) L Monocytes (%) (Auto) 7 % (0-9) Eosinophils (%) (Auto) 1 % (0-3) Basophils (%) (Auto) 1 % (0-3) Neutrophils # (Auto) 8.2 x10^3/uL (1.8-7.7) H Lymphocytes # (Auto) 0.8 x10^3/uL (1.0-4.8) L Monocytes # (Auto) 0.6 x10^3/uL (0.0-1.1) Eosinophils # (Auto) 0.1 x10^3/uL (0.0-0.7) Basophils # (Auto) 0.1 x10^3/uL (0.0-0.2) Test 02/09/20 20:43 02/10/20 06:40 02/10/20 07:16 Glucose (Fingerstick) 170 mg/dL (70-99) H 140 mg/dL (70-99) H White Blood Count 10.4 x10^3/uL (4.0-11.0) Red Blood Count 2.69 x10^6/uL (4.30-5.70) L Hemoglobin 7.3 g/dL (13.0-17.5) L Hematocrit 22.1 % (39.0-53.0) L Mean Corpuscular Volume 82 fL (79-100) Mean Corpuscular Hemoglobin 27 pg (25-35) Mean Corpuscular Hemoglobin Concent 33 g/dL (31-37) Red Cell Distribution Width 17.5 % (11.5-14.5) H Platelet Count 632 x10^3/uL (140-400) H Neutrophils (%) (Auto) 82 % (31-73) H Lymphocytes (%) (Auto) 10 % (24-48) L Monocytes (%) (Auto) 6 % (0-9) Eosinophils (%) (Auto) 1 % (0-3) Basophils (%) (Auto) 1 % (0-3) Neutrophils # (Auto) 8.6 x10^3/uL (1.8-7.7) H Lymphocytes # (Auto) 1.0 x10^3/uL (1.0-4.8) Monocytes # (Auto) 0.6 x10^3/uL (0.0-1.1) Eosinophils # (Auto) 0.1 x10^3/uL (0.0-0.7) Basophils # (Auto) 0.1 x10^3/uL (0.0-0.2) Sodium Level 132 mmol/L (136-145) L Potassium Level 3.6 mmol/L (3.5-5.1) Chloride Level 97 mmol/L (98-107) L Carbon Dioxide Level 29 mmol/L (21-32) Anion Gap 6 (6-14) Blood Urea Nitrogen 10 mg/dL (8-26) Creatinine 0.6 mg/dL (0.7-1.3) L Estimated GFR (Cockcroft-Gault) 141.5 Glucose Level 148 mg/dL (70-99) H Calcium Level 8.8 mg/dL (8.5-10.1) Laboratory Tests 02/09/20 16:10 02/10/20 06:40 Laboratory Tests 02/10/20 06:40 Nutrition Consultation Dietary Evaluation: Recommendations by RD: Dietary education by RD, Increase Calorie Intake, Protein supplementation Comments: ADA diet Glucerna tid Expected Outcomes/Goals: to meet >75% est nutr needs Interpretation of weight loss: >5% in 1 month Malnutrition Findings: Muscle Mass (Severe): Severe Depletion Body Fat Depletion (Non Severe: Mod to Severe Weight Status: Underweight PAT MOSHER MD Feb 10, 2020 08:52
--- NOTE | 2020-02-10 09:08 | NUR ---
FRIDA following. Discussed with RN, pt NPO, IV abx. FRIDA will continue to follow. Addendum: 02/10/20 at 1205 by MELODY GALICIA [facility] faxed Dapto IV abx script to [facility] to determine pt benefits. Pt has Medicare so does not have home infusion benefits, although pt does have a secondary insurance. FRIDA awaiting benefits from [facility]. FRIDA will continue to follow.
--- NOTE | 2020-02-10 09:58 | PDOC ---
Infectious Disease Note Subjective: Subjective Pt says has Rt leg pain ,says it is from injury on the rt leg from boxes of can falling about couple of weeks ago at home back pain has improved drainage from scalp has improved Denies fevers/chill/SOA Vital Signs: Vital Signs Vital Signs Date Time Temp Pulse Resp B/P (MAP) Pulse Ox O2 Delivery O2 Flow Rate FiO2 02/10/20 08:41 20 02/10/20 07:15 99.3 73 132/65 (87) 96 Room Air 99.3 02/09/20 14:32 2 Physical Exam: PHYSICAL EXAM GENERAL: Propped up in bed, alert, looks better, more conversant HEENT: Right eye cataract. Oropharynx pink and dry. No lesions seen. In dentures. Two fairly large scalp wounds, scabbed with purulent drainage and mild erythema. NECK: Supple. LUNGS: Clear to auscultation. HEART: S1, S2. no murmur appreciated ABDOMEN: Nondistended, soft, nontender with bowel sounds present. EXTREMITIES: Previous left BKA. Right index finger wound healing, dry scab, couple sutures still in place. Left fifth finger wound also scabbed, no signs of infection. back no wounds, rt foot amputation previous scar well healed SKIN: Warm to touch. No signs of rash. NEUROLOGIC: Alert, answers questions appropriately Medications: Inpatient Meds: Current Medications Medications (Trade) Dose Ordered Sig/Tory Start Time Stop Time Status Last Admin Dose Admin Aspirin (Ecotrin) 81 mg DAILYWBKFT 02/05/20 08:00 02/10/20 08:31 81 MG Benzocaine (Hurricaine One) 2 spray 1X ONCE 02/09/20 14:00 02/09/20 14:01 DC 02/09/20 13:57 2 SPRAY Cefepime HCl (Maxipime) 2 gm Q8HRS 02/05/20 15:00 02/09/20 11:34 DC 02/09/20 05:25 2 GM Insulin Glargine (Lantus Syringe) 20 unit QHS 02/04/20 21:00 02/09/20 20:58 10 UNIT Insulin Human Lispro (HumaLOG) 60 units TIDWMEALS 02/05/20 08:00 02/08/20 12:30 60 UNITS Lactobacillus Rhamnosus (Culturelle) 1 cap BID 02/05/20 21:00 02/10/20 08:31 1 CAP Lidocaine HCl (Lidocaine Pf 2% Vial) 5 ml STK-MED ONCE 02/09/20 14:00 02/09/20 14:01 DC Lidocaine HCl (Viscous Lidocaine) 15 ml 1X ONCE 02/09/20 14:00 02/09/20 14:01 DC 02/09/20 13:57 15 ML Lidocaine HCl (Xylocaine 2% Topical 30gm Tube) 1 gianna 1X ONCE 02/09/20 14:00 02/09/20 14:01 DC 02/09/20 13:57 1 GIANNA Linezolid/Dextrose 300 ml @ 300 mls/hr Q12HR 02/07/20 15:00 02/10/20 08:32 300 MLS/HR Non-Formulary Medication (Cenegermin-Bkbj (Oxervate)) 1 ml 6X02/04/20 22:00 02/06/20 15:47 DC Ondansetron HCl (Zofran) 4 mg PRN Q8HRS PRN 02/04/20 16:30 02/05/20 16:29 DC Oxycodone HCl (Roxicodone) 15 mg PRN Q4HRS PRN 02/04/20 20:15 02/10/20 08:41 15 MG Pharmacy Consult (C.diff Med Screen By Rx) 1 each 1X ONCE 02/05/20 00:30 02/05/20 00:31 Cancel Phenylephrine HCl (PHENYLEPHRINE in 0.9% NACL PF) 1 mg STK-MED ONCE 02/09/20 14:00 02/09/20 14:01 DC Ringer's Solution 1,000 ml @ 75 mls/hr [id number] 02/09/20 14:00 02/09/20 13:55 75 MLS/HR Sodium Chloride 1,000 ml @ 100 mls/hr Q10H 02/04/20 16:22 02/05/20 16:21 DC 02/05/20 12:22 100 MLS/HR Vancomycin HCl (Vanco Per Pharmacy) 1 each PRN DAILY PRN 02/05/20 15:00 02/09/20 11:24 1 EACH Vancomycin HCl (Vancomycin Trough Level) 1 each 1X ONCE 02/09/20 02:30 3/18/20 02:31 DC 02/09/20 02:30 1 EACH Vancomycin HCl 1.25 gm/Sodium Chloride 250 ml @ 167 mls/hr Q12H 02/07/20 15:00 02/09/20 03:11 DC 02/08/20 14:32 167 MLS/HR Vancomycin HCl 1.5 gm/Sodium Chloride 500 ml @ 250 mls/hr 1X ONCE 02/04/20 16:15 02/04/20 18:14 DC 02/04/20 17:29 250 MLS/HR Vancomycin HCl 1 gm/Sodium Chloride 250 ml @ 250 mls/hr Q12H 02/09/20 06:00 02/10/20 07:10 250 MLS/HR Labs: Lab Laboratory Tests Test 02/09/20 11:02 02/09/20 16:10 02/09/20 16:49 02/09/20 20:43 Glucose (Fingerstick) 193 mg/dL (70-99) 170 mg/dL (70-99) 170 mg/dL (70-99) White Blood Count 9.7 x10^3/uL (4.0-11.0) Red Blood Count 2.71 x10^6/uL (4.30-5.70) Hemoglobin 7.4 g/dL (13.0-17.5) Hematocrit 22.2 % (39.0-53.0) Mean Corpuscular Volume 82 fL (79-100) Mean Corpuscular Hemoglobin 27 pg (25-35) Mean Corpuscular Hemoglobin Concent 33 g/dL (31-37) Red Cell Distribution Width 16.8 % (11.5-14.5) Platelet Count 577 x10^3/uL (140-400) Neutrophils (%) (Auto) 84 % (31-73) Lymphocytes (%) (Auto) 8 % (24-48) Monocytes (%) (Auto) 7 % (0-9) Eosinophils (%) (Auto) 1 % (0-3) Basophils (%) (Auto) 1 % (0-3) Neutrophils # (Auto) 8.2 x10^3/uL (1.8-7.7) Lymphocytes # (Auto) 0.8 x10^3/uL (1.0-4.8) Monocytes # (Auto) 0.6 x10^3/uL (0.0-1.1) Eosinophils # (Auto) 0.1 x10^3/uL (0.0-0.7) Basophils # (Auto) 0.1 x10^3/uL (0.0-0.2) Test 02/10/20 06:40 02/10/20 07:16 White Blood Count 10.4 x10^3/uL (4.0-11.0) Red Blood Count 2.69 x10^6/uL (4.30-5.70) Hemoglobin 7.3 g/dL (13.0-17.5) Hematocrit 22.1 % (39.0-53.0) Mean Corpuscular Volume 82 fL (79-100) Mean Corpuscular Hemoglobin 27 pg (25-35) Mean Corpuscular Hemoglobin Concent 33 g/dL (31-37) Red Cell Distribution Width 17.5 % (11.5-14.5) Platelet Count 632 x10^3/uL (140-400) Neutrophils (%) (Auto) 82 % (31-73) Lymphocytes (%) (Auto) 10 % (24-48) Monocytes (%) (Auto) 6 % (0-9) Eosinophils (%) (Auto) 1 % (0-3) Basophils (%) (Auto) 1 % (0-3) Neutrophils # (Auto) 8.6 x10^3/uL (1.8-7.7) Lymphocytes # (Auto) 1.0 x10^3/uL (1.0-4.8) Monocytes # (Auto) 0.6 x10^3/uL (0.0-1.1) Eosinophils # (Auto) 0.1 x10^3/uL (0.0-0.7) Basophils # (Auto) 0.1 x10^3/uL (0.0-0.2) Sodium Level 132 mmol/L (136-145) Potassium Level 3.6 mmol/L (3.5-5.1) Chloride Level 97 mmol/L (98-107) Carbon Dioxide Level 29 mmol/L (21-32) Anion Gap 6 (6-14) Blood Urea Nitrogen 10 mg/dL (8-26) Creatinine 0.6 mg/dL (0.7-1.3) Estimated GFR (Cockcroft-Gault) 141.5 Glucose Level 148 mg/dL (70-99) Calcium Level 8.8 mg/dL (8.5-10.1) Glucose (Fingerstick) 140 mg/dL (70-99) Objective: Assessment: MRSA Bacteremia POA 02/03 , 02/05 source scalp abscess Recurrent scalp abscess - no surgical plans -h/o I and D, 01/18. MRSA - Pt was dc on IV oritavancin - Previously had been on linezolid though he did not fill it after previous discharge Leukocytosis improving h/o flexor tenosynovitis of the right index finger with peritendinous abscess/osteo s/p I and D, 01/[address] Burt. MRSA h/o left 4th & 5th finger abscesses s/p I and D, 01/08 Diabetes mellitus poorly controlled. Severe peripheral neuropathy with multiple injuries and wilson SULFA ALLERGY History of Clostridium difficile. History of MDRO infection including MRSA, Klebsiella, Enterococcus, Citrobacter, and group B strep. Status post left below-knee amputation. h/o Noncomplaince Rt thigh pain , bone scan per primary shows nonspecific changes, no clinical changes s/o Osteomyelitis at this time Plan: Plan of Care Pt is insistent for dc home soon cont IV vancomycin per pharmacy protocol last vanc trough > 20, creat is wnl Monitor renal function closely have requested dapto suscep for mrsa,still pending f/u Repeat BC 02/07 neg so far 02/09 VINCE neg for vegetation Gen surgery to evaluate for Rt leg hematoma/fluid collection Single lumen picc line if repeat bc remain neg later today script for dc for sw for dc planning daptomycin 6mg/kg/day Local wound care Contact isolation Overall Prognosis poor D/w nursing SON BECERRA MD Feb 10, 2020 09:58
--- NOTE | 2020-02-10 10:43 | NUR ---
Dr. Lyons wants him to stay. He wants to go home. states he can go home if comes in every day for iv antibiotic--he refuses.he refused to go to rehab. wants picc and home health. tried to explain that he needs antibiotic and could become sicker. Dr. Lyons will agree to midline and home health with daptomycin.
[2020-02-10 11:20] VITALS: BP 133/69
--- NOTE | 2020-02-10 12:31 | NUR ---
ronaldo refused physical therapy and insulin. stateswhen his blood sugar is "normal" he doesnt feel good and wont take it.
--- NOTE | 2020-02-10 13:19 | NUR ---
heard patient upset over the phone with his mom. starts yelling that he can't breath;needs help; spilled urianl . calmed down. gave eye drops . wants up and cleaned up-linens changed bathed. calmed down. Addendum: 02/10/20 at 1325 by LOUISA HUMPHRIES RN lab called 2nd bottle +mrsa 48hrs after drawn. the 1st bottle was positive.
--- NOTE | 2020-02-10 13:25 | NUR ---
consent for single lumen midline obtained
[2020-02-10] MEDS ORDERED: OXYMETAZOLINE 0.05% NASAL SPRAY 30ML BOTTLE. NS PRN (13:30)
--- NOTE | 2020-02-10 14:00 | NUR ---
Wound Care Spoke with BERNABE Rueda with Ortho yesterday re: sutures that have been in pt's R index finger since surgery several weeks ago. Received orders to remove sutures. 3 Sutures removed at this time, pt tolerated well.
[2020-02-10] MEDS: VANCOMYCIN PER PHARMACY MC PRN (14:02)
[2020-02-10 15:06] VITALS: BP 123/64
--- NOTE | 2020-02-10 15:10 | NUR ---
Midline Pre-Insertion Allergies and reactions bactrim antibiotic INR n/a BUN 10 Cr 0.6 Platelets 632 Blood culture done yes blood culture results MRSA, redrawn set no growth x 2 days Order Verified yes Consent signed yes Previous PICC placement yes Past Medical/Surgical history and current diagnosis reviewed yes Patient Medical /Surgical History Related to Midline placement Diabetes Infectious Disease consult Past central line or venous access device placement Special considerations for Midline placement None Midline placement indication jail antibiotic usage PICC Nurse- Mariam Trinidad RN Addendum: 02/10/20 at 1544 by BRET TRINIDAD RN Amended: Links added.
--- NOTE | 2020-02-10 15:30 | NUR ---
Midline Placement Procedure: Following complete explanation of the Midline procedure including the indications, risks, and potential complications, informed consent was obtained. The possibility for infection was discussed along with signs, symptoms, and prevention. All the questions were answered. Written and verbal patient education was provided. Hand hygiene performed. Standardized central line checklist was utilized. The patient was placed in the supine position, the arm was prepped with chlorhexidine and patient draped with maximum sterile barrier. 3 mL 1% lidocaine was infiltrated into the skin to provide local anesthesia. A thorough assessment of Right upper extremity completed. Using real-time ultrasound guidance and standardized micro puncture set, the brachial vein was punctured and a peel away sheath was placed using the modified Seldinger technique. A tip location device was used to ensure adequate catheter placement. The catheter was secured using a securement device and an antimicrobial patch was applied directly on the insertion site followed by a transparent dressing. All ports withdraw blood and flush without resistance. Patient tolerated the procedure without apparent complication(s). Single Lumen Power Midline placement successful and uncomplicated. Tip located in the Right Axilla. Complications: none Catheter trimmed at 15cm with 1cm visible at insertion site.
[2020-02-10 19:00] VITALS: BP 133/81
[2020-02-10] MEDS: INSULIN GLARGINE SYRINGE. SQ SCH (22:13)
[2020-02-10 23:00] VITALS: BP 154/79
[2020-02-11 03:00] VITALS: BP 147/79
[2020-02-11] MEDS: oxyCODONE IR 5 MG TABLET PO PRN (03:11)
[2020-02-11] MEDS: IV RINGERS,LACTATED 1000ML 1,000 ML IV SCH (04:26)
[2020-02-11] MEDS: VANCOMYCIN 1 GM in IV NORMAL SALINE 250ML 250 ML IV SCH (06:23)
[2020-02-11 07:00] VITALS: BP 142/76
--- NOTE | 2020-02-11 07:53 | PDOC ---
GENERAL General: vss and afebrile. awake and alert and still pushing for dc. exam stable. chest clear, heart regular, abdomen benign. ongoing iv antibiotics. dc planning per ID. VITAL SIGNS/I&O Vital Signs/I&O: Vital Signs Date Time Temp Pulse Resp B/P (MAP) Pulse Ox O2 Delivery O2 Flow Rate FiO2 02/11/20 03:11 Room Air 02/11/20 03:00 98.5 100 18 147/79 (101) 96 98.5 I & O 02/10/20 02/10/20 02/11/20 15:00 23:00 07:00 Intake Total 120 ml 240 ml Output Total 450 ml 550 ml Balance 120 ml -450 ml -310 ml ALLERGIES Allergies: Allergies Coded Allergies Type Severity Reaction Last Updated Verified sulfamethoxazole Allergy Intermediate Rash 02/09/20 Yes trimethoprim Allergy Intermediate Rash 02/09/20 Yes I S O L A T I O N *CONTACT* Allergy Unknown 02/09/20 Yes LAB Lab: Laboratory Tests Test 02/10/20 11:24 02/10/20 16:22 02/10/20 21:12 Glucose (Fingerstick) 173 mg/dL (70-99) H 167 mg/dL (70-99) H 170 mg/dL (70-99) H Nutrition Consultation Dietary Evaluation: Recommendations by RD: Dietary education by RD, Increase Calorie Intake, Protein supplementation Comments: ADA diet Glucerna tid Expected Outcomes/Goals: to meet >75% est nutr needs Interpretation of weight loss: >5% in 1 month Malnutrition Findings: Muscle Mass (Severe): Severe Depletion Body Fat Depletion (Non Severe: Mod to Severe Weight Status: Underweight APPLPAT MD Feb 11, 2020 07:53
[2020-02-11] MEDS: INSULIN LISPRO 300 UNITS/3 ML VIAL. SQ SCH ×2 (08:00→11:48)
--- NOTE | 2020-02-11 08:18 | PDOC ---
Infectious Disease Note Subjective: Subjective Pt says has Rt leg pain ,says it is from injury on the rt leg from boxes of can falling about couple of weeks ago at home but somewhat better able to bend the rt knee but still has pressure in the rt thigh back pain has improved drainage from scalp has improved Denies fevers/chill/SOA Vital Signs: Vital Signs Vital Signs Date Time Temp Pulse Resp B/P (MAP) Pulse Ox O2 Delivery O2 Flow Rate FiO2 02/11/20 07:00 97.9 95 16 142/76 (98) 98 Room Air 97.9 Physical Exam: PHYSICAL EXAM GENERAL: Propped up in bed, alert, looks better, more conversant HEENT: Right eye cataract. Oropharynx pink and dry. No lesions seen. In dentures. Two fairly large scalp wounds, scabbed with purulent drainage and mild erythema. NECK: Supple. LUNGS: Clear to auscultation. HEART: S1, S2. no murmur appreciated ABDOMEN: Nondistended, soft, nontender with bowel sounds present. EXTREMITIES: Previous left BKA. Right index finger wound healing, dry scab, couple sutures still in place. Left fifth finger wound also scabbed, no signs of infection. back no wounds, rt foot amputation previous scar well healed SKIN: Warm to touch. No signs of rash. NEUROLOGIC: Alert, answers questions appropriately PICC line clean Medications: Inpatient Meds: Current Medications Medications (Trade) Dose Ordered Sig/Tory Start Time Stop Time Status Last Admin Dose Admin Aspirin (Ecotrin) 81 mg DAILYWBKFT 02/05/20 08:00 02/10/20 08:31 Benzocaine (Hurricaine One) 2 spray 1X ONCE 02/09/20 14:00 02/09/20 14:01 DC 02/09/20 13:57 Cefepime HCl (Maxipime) 2 gm Q8HRS 02/05/20 15:00 02/09/20 11:34 DC 02/09/20 05:25 Insulin Glargine (Lantus Syringe) 20 unit QHS 02/04/20 21:00 02/10/20 22:13 Insulin Human Lispro (HumaLOG) 60 units TIDWMEALS 02/05/20 08:00 02/08/20 12:30 Lactobacillus Rhamnosus (Culturelle) 1 cap BID 02/05/20 21:00 02/10/20 22:00 Lidocaine HCl (Lidocaine Pf 2% Vial) 5 ml STK-MED ONCE 02/09/20 14:00 02/09/20 14:01 DC Lidocaine HCl (Viscous Lidocaine) 15 ml 1X ONCE 02/09/20 14:00 02/09/20 14:01 DC 02/09/20 13:57 Lidocaine HCl (Xylocaine 2% Topical 30gm Tube) 1 gianna 1X ONCE 02/09/20 14:00 02/09/20 14:01 DC 02/09/20 13:57 Linezolid/Dextrose 300 ml @ 300 mls/hr Q12HR 02/07/20 15:00 02/10/20 22:00 Non-Formulary Medication (Cenegermin-Bkbj (Oxervate)) 1 ml 6XDAY 02/04/20 22:00 02/06/20 15:47 DC Ondansetron HCl (Zofran) 4 mg PRN Q8HRS PRN 02/04/20 16:30 02/05/20 16:29 DC Oxycodone HCl (Roxicodone) 15 mg PRN Q4HRS PRN 02/04/20 20:15 02/11/20 03:11 Oxymetazoline HCl (Afrin) 2 spray PRN Q12HR PRN 02/10/20 13:30 Pharmacy Consult (C.diff Med Screen By Rx) 1 each 1X ONCE 02/05/20 00:30 02/05/20 00:31 Cancel Phenylephrine HCl (PHENYLEPHRINE in 0.9% NACL PF) 1 mg STK-MED ONCE 02/09/20 14:00 02/09/20 14:01 DC Ringer's Solution 1,000 ml @ 75 mls/hr [id number] 02/09/20 14:00 02/11/20 04:26 Sodium Chloride 1,000 ml @ 100 mls/hr Q10H 02/04/20 16:22 02/05/20 16:21 DC 02/05/20 12:22 Vancomycin HCl (Vanco Per Pharmacy) 1 each PRN DAILY PRN 02/05/20 15:00 02/10/20 14:02 Vancomycin HCl (Vancomycin Trough Level) 1 each 1X ONCE 02/09/20 02:30 02/09/20 02:31 DC 02/09/20 02:30 Vancomycin HCl 1.25 gm/Sodium Chloride 250 ml @ 167 mls/hr Q12H 02/07/20 15:00 02/09/20 03:11 DC 02/08/20 14:32 Vancomycin HCl 1.5 gm/Sodium Chloride 500 ml @ 250 mls/hr 1X ONCE 02/04/20 16:15 02/04/20 18:14 DC 02/04/20 17:29 Vancomycin HCl 1 gm/Sodium Chloride 250 ml @ 250 mls/hr Q12H 02/09/20 06:00 02/11/20 06:23 Labs: Lab Laboratory Tests Test 02/10/20 11:24 02/10/20 16:22 02/10/20 21:12 02/11/20 07:58 Glucose (Fingerstick) 173 mg/dL (70-99) 167 mg/dL (70-99) 170 mg/dL (70-99) 131 mg/dL (70-99) Objective: Assessment: MRSA Bacteremia POA 02/03 , 02/05 source scalp abscess Recurrent scalp abscess - no surgical plans -h/o I and D, 01/18. MRSA - Pt was dc on IV oritavancin - Previously had been on linezolid though he did not fill it after previous discharge Leukocytosis improving h/o flexor tenosynovitis of the right index finger with peritendinous abscess/osteo s/p I and D, 01/[address] Burt. MRSA h/o left 4th & 5th finger abscesses s/p I and D, 01/08 Diabetes mellitus poorly controlled. Severe peripheral neuropathy with multiple injuries and wilson SULFA ALLERGY History of Clostridium difficile. History of MDRO infection including MRSA, Klebsiella, Enterococcus, Citrobacter, and group B strep. Status post left below-knee amputation. h/o Noncomplaince Rt thigh pain , U/S abn noted, could be hematoma vs abscess Plan: Plan of Care Gen surgery to evaluate for Rt leg hematoma/fluid collection before dc , Pt is insistent for dc home soon ; pros and cons discussed cont IV vancomycin per pharmacy protocol last vanc trough > 20, creat is wnl Monitor renal function closely labs ordered for this am I have requested dapto suscep for MRSA in BC from 313; still pending f/u Repeat BC 02/07 neg so far 02/09 VINCE neg for vegetation Single lumen picc line in place Maintainance and complications of picc line discussed use for directed antibiotic therapy only s/e of antibiotics discussed script for dc for sw for dc planning daptomycin 6mg/kg/day Local wound care per gen surgery, f/u id clinic in 2-3 weeks weekly labs q mon cbc/bun/creat/cpk/lft /esr fax results to [phone] Contact isolation Overall Prognosis poor D/w nursing SON BECERRA MD Feb 11, 2020 08:18
[2020-02-11 08:48] LABS: CALCIUM 8.5 mg/dL (8.5-10.1); CREATININE 0.5 mg/dL (0.7-1.3); GFR 174.6; POTASSIUM 4.1 mmol/L (3.5-5.1)
[2020-02-11 08:51] LABS: BASO # 0.1 x10^3/uL (0.0-0.2); BASO % 1 % (0-3); EOS # 0.1 x10^3/uL (0.0-0.7); EOS % 1 % (0-3); HEMATOCRIT 21.6 % (39.0-53.0); HEMOGLOBIN 7.2 g/dL (13.0-17.5); LYMPH # 1.1 x10^3/uL (1.0-4.8); LYMPH % 11 % (24-48); MEAN CORPUSCULAR HEMOGLOBIN 27 pg (25-35); MEAN CORPUSCULAR HGB CONC 34 g/dL (31-37); MEAN CORPUSCULAR VOLUME 81 fL (79-100); MONO # 0.6 x10^3/uL (0.0-1.1); MONO % 6 % (0-9); NEUT # 8.3 x10^3/uL (1.8-7.7); NEUT % 81 % (31-73); PLATELET COUNT 617 x10^3/uL (140-400); RED BLOOD COUNT 2.68 x10^6/uL (4.30-5.70); RED CELL DISTRIBUTION WIDTH 17.4 % (11.5-14.5); WHITE BLOOD COUNT 10.3 x10^3/uL (4.0-11.0)
[2020-02-11 08:55] LABS: ALBUMIN 1.2 g/dL (3.4-5.0); ALBUMIN/GLOBULIN RATIO 0.3 (1.0-1.7); TOTAL BILIRUBIN 0.2 mg/dL (0.2-1.0); TOTAL PROTEIN 5.4 g/dL (6.4-8.2)
[2020-02-11] MEDS: ASPIRIN ENTERIC COATED 81 MG TABLET.DR. PO SCH (09:02)
[2020-02-11] MEDS: LACTOBACILLUS RHAMNOSUS GG 1 CAPSULE. PO SCH (09:02)
--- NOTE | 2020-02-11 09:11 | NUR ---
SW following. Discussed with RN. [facility] left voicemail with SW around 1700 yesterday, they finally were able to get through to pt's insurance, they determined [facility] is out of network with pt's insurance. [facility] provided a self pay flaherty of $389 a day. technical plannerGloria faxed referral to [facility] to determine if pt's insurance is in network. Dr. Lyons has provided second option if pt cannot do home infusion. FRIDA will continue to follow. Addendum: 02/11/20 at 1258 by MELODY GALICIA [facility] provided cost of $669.34 per week. Pt's RN questioned pt on whether he could afford this, pt reported he could not afford this. FRIDA contacted outpatient infusion to determine if pt would be able to come tomorrow for a one time dose of Dalbavancin 1500mg IV once followed by 1000mg after 2 weeks. Bev in pharmacy advised the medication would be available after noon tomorrow (02/12/2020). FRIDA spoke with Oriana in outpatient, they advised they cannot do this in the afternoon as there likely isn't going to be anyone there to do it, due to the workers being tone cabinet assembler in the afternoon for GI. Outpatient advised they will schedule pt for 09Friday (02/14/2020). FRIDA notified RN. Facesheet and script faxed to outpatient (ph: [phone], fax: [phone]). Pt can discharge home on Friday and come back to outpatient on Friday morning for his infusion time. RN notified, information written on weekend discharge list for house superintendent. Addendum: 02/11/20 at 1407 by MELODY GALICIA RN advised, pt left AMA, could not be convinced to stay. Pt did not want to have to stay until Friday. Pt aware of infusion time of 0900 on Friday.
[2020-02-11] MEDS: VANCOMYCIN PER PHARMACY MC PRN (09:26)
--- NOTE | 2020-02-11 09:53 | PDOC ---
SURGICAL PROGRESS NOTE Subjective Patient doing well he complains of having dropped something on his right leg just above his knee is concerned about this area although he states it is no longer painful Vital Signs Vital Signs Date Time Temp Pulse Resp B/P (MAP) Pulse Ox O2 Delivery O2 Flow Rate FiO2 02/11/20 07:00 97.9 95 16 142/76 (98) 98 Room Air 97.9 I&O Intake and Output 02/11/20 07:00 Intake Total 360 ml Output Total 1000 ml Balance -640 ml Intake Oral 360 ml Output Urine Total 1000 ml PATIENT HAS A WELCH: No General: Alert, Oriented X3, Cooperative, No acute distress Skin: Other (Multiple wounds. Ecchymosis just above his knee on the right leg nontender to palpation no erythema no signs of infection) Labs Laboratory Tests Test 02/09/20 11:02 02/09/20 16:10 02/09/20 16:49 02/09/20 20:43 Glucose (Fingerstick) 193 mg/dL (70-99) 170 mg/dL (70-99) 170 mg/dL (70-99) White Blood Count 9.7 x10^3/uL (4.0-11.0) Red Blood Count 2.71 x10^6/uL (4.30-5.70) Hemoglobin 7.4 g/dL (13.0-17.5) Hematocrit 22.2 % (39.0-53.0) Mean Corpuscular Volume 82 fL (79-100) Mean Corpuscular Hemoglobin 27 pg (25-35) Mean Corpuscular Hemoglobin Concent 33 g/dL (31-37) Red Cell Distribution Width 16.8 % (11.5-14.5) Platelet Count 577 x10^3/uL (140-400) Neutrophils (%) (Auto) 84 % (31-73) Lymphocytes (%) (Auto) 8 % (24-48) Monocytes (%) (Auto) 7 % (0-9) Eosinophils (%) (Auto) 1 % (0-3) Basophils (%) (Auto) 1 % (0-3) Neutrophils # (Auto) 8.2 x10^3/uL (1.8-7.7) Lymphocytes # (Auto) 0.8 x10^3/uL (1.0-4.8) Monocytes # (Auto) 0.6 x10^3/uL (0.0-1.1) Eosinophils # (Auto) 0.1 x10^3/uL (0.0-0.7) Basophils # (Auto) 0.1 x10^3/uL (0.0-0.2) Test 02/10/20 06:40 02/10/20 07:16 02/10/20 11:24 02/10/20 16:22 White Blood Count 10.4 x10^3/uL (4.0-11.0) Red Blood Count 2.69 x10^6/uL (4.30-5.70) Hemoglobin 7.3 g/dL (13.0-17.5) Hematocrit 22.1 % (39.0-53.0) Mean Corpuscular Volume 82 fL (79-100) Mean Corpuscular Hemoglobin 27 pg (25-35) Mean Corpuscular Hemoglobin Concent 33 g/dL (31-37) Red Cell Distribution Width 17.5 % (11.5-14.5) Platelet Count 632 x10^3/uL (140-400) Neutrophils (%) (Auto) 82 % (31-73) Lymphocytes (%) (Auto) 10 % (24-48) Monocytes (%) (Auto) 6 % (0-9) Eosinophils (%) (Auto) 1 % (0-3) Basophils (%) (Auto) 1 % (0-3) Neutrophils # (Auto) 8.6 x10^3/uL (1.8-7.7) Lymphocytes # (Auto) 1.0 x10^3/uL (1.0-4.8) Monocytes # (Auto) 0.6 x10^3/uL (0.0-1.1) Eosinophils # (Auto) 0.1 x10^3/uL (0.0-0.7) Basophils # (Auto) 0.1 x10^3/uL (0.0-0.2) Sodium Level 132 mmol/L (136-145) Potassium Level 3.6 mmol/L (3.5-5.1) Chloride Level 97 mmol/L (98-107) Carbon Dioxide Level 29 mmol/L (21-32) Anion Gap 6 (6-14) Blood Urea Nitrogen 10 mg/dL (8-26) Creatinine 0.6 mg/dL (0.7-1.3) Estimated GFR (Cockcroft-Gault) 141.5 Glucose Level 148 mg/dL (70-99) Calcium Level 8.8 mg/dL (8.5-10.1) Glucose (Fingerstick) 140 mg/dL (70-99) 173 mg/dL (70-99) 167 mg/dL (70-99) Test 02/10/20 21:12 02/11/20 07:58 02/11/20 08:00 Glucose (Fingerstick) 170 mg/dL (70-99) 131 mg/dL (70-99) White Blood Count 10.3 x10^3/uL (4.0-11.0) Red Blood Count 2.68 x10^6/uL (4.30-5.70) Hemoglobin 7.2 g/dL (13.0-17.5) Hematocrit 21.6 % (39.0-53.0) Mean Corpuscular Volume 81 fL (79-100) Mean Corpuscular Hemoglobin 27 pg (25-35) Mean Corpuscular Hemoglobin Concent 34 g/dL (31-37) Red Cell Distribution Width 17.4 % (11.5-14.5) Platelet Count 617 x10^3/uL (140-400) Neutrophils (%) (Auto) 81 % (31-73) Lymphocytes (%) (Auto) 11 % (24-48) Monocytes (%) (Auto) 6 % (0-9) Eosinophils (%) (Auto) 1 % (0-3) Basophils (%) (Auto) 1 % (0-3) Neutrophils # (Auto) 8.3 x10^3/uL (1.8-7.7) Lymphocytes # (Auto) 1.1 x10^3/uL (1.0-4.8) Monocytes # (Auto) 0.6 x10^3/uL (0.0-1.1) Eosinophils # (Auto) 0.1 x10^3/uL (0.0-0.7) Basophils # (Auto) 0.1 x10^3/uL (0.0-0.2) Sodium Level 132 mmol/L (136-145) Potassium Level 4.1 mmol/L (3.5-5.1) Chloride Level 97 mmol/L (98-107) Carbon Dioxide Level 30 mmol/L (21-32) Anion Gap 5 (6-14) Blood Urea Nitrogen 10 mg/dL (8-26) Creatinine 0.5 mg/dL (0.7-1.3) Estimated GFR (Cockcroft-Gault) 174.6 BUN/Creatinine Ratio 20 (6-20) Glucose Level 137 mg/dL (70-99) Calcium Level 8.5 mg/dL (8.5-10.1) Total Bilirubin 0.2 mg/dL (0.2-1.0) Aspartate Amino Transf (AST/SGOT) 15 U/L (15-37) Alanine Aminotransferase (ALT/SGPT) 12 U/L (16-63) Alkaline Phosphatase 117 U/L (46-116) Creatine Kinase 14 U/L (39-308) Total Protein 5.4 g/dL (6.4-8.2) Albumin 1.2 g/dL (3.4-5.0) Albumin/Globulin Ratio 0.3 (1.0-1.7) Laboratory Tests Test 02/10/20 11:24 02/10/20 16:22 02/10/20 21:12 02/11/20 07:58 Glucose (Fingerstick) 173 mg/dL (70-99) 167 mg/dL (70-99) 170 mg/dL (70-99) 131 mg/dL (70-99) Test 02/11/20 08:00 White Blood Count 10.3 x10^3/uL (4.0-11.0) Red Blood Count 2.68 x10^6/uL (4.30-5.70) Hemoglobin 7.2 g/dL (13.0-17.5) Hematocrit 21.6 % (39.0-53.0) Mean Corpuscular Volume 81 fL (79-100) Mean Corpuscular Hemoglobin 27 pg (25-35) Mean Corpuscular Hemoglobin Concent 34 g/dL (31-37) Red Cell Distribution Width 17.4 % (11.5-14.5) Platelet Count 617 x10^3/uL (140-400) Neutrophils (%) (Auto) 81 % (31-73) Lymphocytes (%) (Auto) 11 % (24-48) Monocytes (%) (Auto) 6 % (0-9) Eosinophils (%) (Auto) 1 % (0-3) Basophils (%) (Auto) 1 % (0-3) Neutrophils # (Auto) 8.3 x10^3/uL (1.8-7.7) Lymphocytes # (Auto) 1.1 x10^3/uL (1.0-4.8) Monocytes # (Auto) 0.6 x10^3/uL (0.0-1.1) Eosinophils # (Auto) 0.1 x10^3/uL (0.0-0.7) Basophils # (Auto) 0.1 x10^3/uL (0.0-0.2) Sodium Level 132 mmol/L (136-145) Potassium Level 4.1 mmol/L (3.5-5.1) Chloride Level 97 mmol/L (98-107) Carbon Dioxide Level 30 mmol/L (21-32) Anion Gap 5 (6-14) Blood Urea Nitrogen 10 mg/dL (8-26) Creatinine 0.5 mg/dL (0.7-1.3) Estimated GFR (Cockcroft-Gault) 174.6 BUN/Creatinine Ratio 20 (6-20) Glucose Level 137 mg/dL (70-99) Calcium Level 8.5 mg/dL (8.5-10.1) Total Bilirubin 0.2 mg/dL (0.2-1.0) Aspartate Amino Transf (AST/SGOT) 15 U/L (15-37) Alanine Aminotransferase (ALT/SGPT) 12 U/L (16-63) Alkaline Phosphatase 117 U/L (46-116) Creatine Kinase 14 U/L (39-308) Total Protein 5.4 g/dL (6.4-8.2) Albumin 1.2 g/dL (3.4-5.0) Albumin/Globulin Ratio 0.3 (1.0-1.7) Problem List Problems Medical Problems: (1) Failure of outpatient treatment Status: Acute (2) Hyperglycemia Status: Acute (3) Hyponatremia Status: Acute (4) Weakness generalized Status: Acute Assessment/Plan Contusion of the right leg appears to be improving. Treat conservatively. Stable from surgical standpoint MALLIKA SUÁREZ MD Feb 11, 2020 09:53
[2020-02-11 11:00] VITALS: BP 144/64
--- NOTE | 2020-02-11 13:54 | NUR ---
Advised patient that would not be able to discharge from hospital until Friday d/t unable to get the abx he needs until then. Patient was very upset about this. Said he was absolutely leaving today no matter what, educated patient on leaving AMA. Patient states he will be fine missing this day or two w/o abx. Per Dr. Lyons if he did leave AMA to give him a one time dose of Dapto 10mg/kg. After patient thought about it he still wants to leave AMA. I asked if he would stay for one more abx and patient refused. Also advised patient that Dr. Lima wanted surgery to come look at his forehead that there might be another abscess. Patient refused. AMA form signed. Security will be called when his ride arrives.
== END 2020-02-11 14:40 | disposition left against medical advice (07) | DRG 604 ==
LOC: ER 14:34 → 4 NORTH 17:30
PROVIDERS: ADMIT Family Medicine; ATTEND Family Medicine
PROC: B24BZZ4 Ultrasonography of Heart with Aorta, Transesophageal (ICD-10-PCS; principal; 2020-02-09 13:30)
DX: S70.11XA Contusion of right thigh, initial encounter (principal); E43 Unspecified severe protein-calorie malnutrition; L03.811 Cellulitis of head [any part, except face]; E87.1 Hypo-osmolality and hyponatremia; L02.811 Cutaneous abscess of head [any part, except face]; I10 Essential (primary) hypertension; Z86.14 Personal history of Methicillin resistant Staphylococcus aureus infection; H54.61 Unqualified visual loss, right eye, normal vision left eye; F41.9 Anxiety disorder, unspecified; F17.210 Nicotine dependence, cigarettes, uncomplicated; Z88.8 Allergy status to other drugs, medicaments and biological substances; E11.65 Type 2 diabetes mellitus with hyperglycemia; G89.29 Other chronic pain; E11.51 Type 2 diabetes mellitus with diabetic peripheral angiopathy without gangrene; Z89.512 Acquired absence of left leg below knee; Z88.2 Allergy status to sulfonamides; Z82.49 Family history of ischemic heart disease and other diseases of the circulatory system; E11.42 Type 2 diabetes mellitus with diabetic polyneuropathy; E78.5 Hyperlipidemia, unspecified; F32.9 Major depressive disorder, single episode, unspecified; I25.10 Atherosclerotic heart disease of native coronary artery without angina pectoris; M19.90 Unspecified osteoarthritis, unspecified site; D64.9 Anemia, unspecified; B95.62 Methicillin resistant Staphylococcus aureus infection as the cause of diseases classified elsewhere; X58.XXXA Exposure to other specified factors, initial encounter; Y93.89 Activity, other specified; Y92.89 Other specified places as the place of occurrence of the external cause; Y99.8 Other external cause status
CPT/HCPCS: 36415; 36569; 73552; 76881; 78300; 80048; 80053; 80202; 81001; 82550; 82565; 82962; 83605; 85007; 85025; 85651; 87040; 87077; 87205; 93312; 93325; 96365; 96375; 99285; A9503; J0692; J1815; J2001; J2020; J2370; J3370; J7030; J7040; J7050; J7120; G0378

== ENCOUNTER → 2020-12-26 | Outpatient (CLI) | payer MEDICARE ==
[2020-06-05 15:54] VITALS: BP 174/79
[~2020-12-26] MED LIST changes: -ASPI-612 PO; +ASPI-886 PO; +LISI10TA16 PO; -LISI10TA2 PO; -OXYC-411 PO; -OXYC15TA PO; +OXYC15TA3 PO; +OXYC1TAB20 PO
--- NOTE | 2020-12-27 16:04 | RAD ---
Right lower extremity arterial duplex ultrasound 12/27/2020 INDICATION: Severe peripheral vascular disease. Nonhealing wound, right foot from January into the bulb foot. History of diabetes. History of multiple surgical interventions involving a right iliac femoral bypass, with recent interventions including April 24, 2020. Which included placement of a [place] interposition graft, with subsequent thrombectomy of the popliteal artery and proximal tibial vessels. The patient subsequently underwent a transmetatarsal amputation. Comparison STUDY: Abdominal aortogram and right lower extremity angiography April 21, 2020 Discussion: Ultrasound evaluation of the major arteries of the right lower extremity were performed including color Doppler imaging spectral analysis. The graft extending from the external iliac artery to the common femoral artery is grossly patent. Elevated velocities are seen extending at the ostium of the profunda artery consistent with at least moderate stenosis. The proximal SFA appears to be patent. Prominent lymph node noted in the right groin measuring 3 cm x 1 cm x 1.3 cm. This is likely reactive given history. The mid right superficial femoral artery appears patent. The distal superficial femoral artery appears patent. Blunted waveforms are noted in the [id number] popliteal artery. Weak monophasic flow seen in the [id number] popliteal artery. Posterior tibial artery is patent proximally with elevated velocities suggesting at least mild stenosis. Blunting of distal posterior tibial artery waveforms are seen. The peroneal artery demonstrates elevated velocities consistent with mild to moderate stenosis. The anterior tibial artery demonstrates no identifiable flow. IMPRESSION: 1. Probable moderate stenosis the ostium of the right profunda artery. 2. Blunted waveforms and decreased velocities in the distal popliteal artery. 3. Occlusion of the dorsalis pedis artery. Areas of elevated velocities within the peroneal and posterior tibial artery suggestive of mild to moderate stenoses. The posterior tibial artery was previously identified with a dominant blood supply to this patient's foot . 4. Catheter angiography and intervention may be helpful for further evaluation treatment plans clinically indicated.
== END ==
LOC: US 09:23
PROVIDERS: ATTEND Emergency Medicine Undersea and Hyperbaric Medicine
DX: S91.301A Unspecified open wound, right foot, initial encounter (principal); I77.1 Stricture of artery; I70.90 Unspecified atherosclerosis; X58.XXXA Exposure to other specified factors, initial encounter; Y93.89 Activity, other specified; Y92.89 Other specified places as the place of occurrence of the external cause; Y99.8 Other external cause status
CPT/HCPCS: 93926

== ENCOUNTER 2021-06-12 17:17 | Emergency (ER) | payer MEDICARE ==
[~2021-06-12] VITALS: Ht 180.3 cm; Wt 68.1 kg
[2021-06-12 20:11] LABS: BASO # 0.1 x10^3/uL (0.0-0.2); BASO % 2 % (0-3); EOS % 1 % (0-3); HEMATOCRIT 25.7 % (39.0-53.0); HEMOGLOBIN 7.6 g/dL (13.0-17.5); LYMPH # 0.7 x10^3/uL (1.0-4.8); LYMPH % 10 % (24-48); MEAN CORPUSCULAR HEMOGLOBIN 21 pg (25-35); MEAN CORPUSCULAR HGB CONC 30 g/dL (31-37); MEAN CORPUSCULAR VOLUME 70 fL (79-100); MONO # 0.4 x10^3/uL (0.0-1.1); MONO % 6 % (0-9); NEUT # 5.8 x10^3/uL (1.8-7.7); NEUT % 82 % (31-73); PLATELET COUNT 344 x10^3/uL (140-400); RED BLOOD COUNT 3.66 x10^6/uL (4.30-5.70); RED CELL DISTRIBUTION WIDTH 20.4 % (11.5-14.5); WHITE BLOOD COUNT 7.1 x10^3/uL (4.0-11.0)
[2021-06-12 20:16] LABS: CALCIUM 8.1 mg/dL (8.5-10.1); CREATININE 1.5 mg/dL (0.7-1.3); POTASSIUM 4.7 mmol/L (3.5-5.1)
[2021-06-12 20:22] LABS: ALBUMIN 1.2 g/dL (3.4-5.0); ALBUMIN/GLOBULIN RATIO 0.2 (1.0-1.7); TOTAL BILIRUBIN 0.3 mg/dL (0.2-1.0); TOTAL PROTEIN 7.2 g/dL (6.4-8.2)
[2021-06-12] MEDS ORDERED: IV NORMAL SALINE 1000ML BAG 1,000 ML IV ONE ×2 (20:30→22:00)
--- NOTE | 2021-06-12 20:30 | PHYS DOC ---
Past Medical History Past Medical History: Anxiety, Diabetes-Type II, Hypertension, Other Additional Past Medical Histor: MRSA, STAPH, BLIND R EYE Past Surgical History: Other Additional Past Surgical Histo: BACK, L. HAND, VASCULAR SURGERY, R. GREAT TOE AMPUTATION, R EYE Smoking Status: Current Every Day Smoker Alcohol Use: None Drug Use: None General Adult EDM: Chief Complaint: NAUSEA/VOMITING/DIARRHEA HPI: HPI: Patient is a 55 year old male with a past medical history diabetes hypertension presents for the evaluation of generalized weakness. Patient states he thinks he has C. difficile. Patient states over the last month he has had diarrhea. Patient's states he has noticed increased facial and leg swelling as well as generalized weakness. Patient lives with his parents and they wanted him to be evaluated. Patient denies any associated chest pain shortness of breath or abdominal pain. Patient's vital signs are stable he is alert and oriented x4 and appears in no acute distress. Review of Systems: Review of Systems: Review of systems: Constitutional symptoms- No fever, no chills. Eyes- No Discharge, No Visual Loss Respiratory symptoms- No shortness of breath, No wheezing, No Dyspnea on Exerti on Cardiovascular Systems; No chest pain, No Palpitations, No syncope Gastrointestinal symptoms: NO abdominal pain, no nausea, no vomiting Positive diarrhea. Genitourinary symptoms: No dysuria. Musculoskeletal symptoms: No back pain No extremity pain. NEUROLOGICAL Symptoms: No headache, Positive generalized weakness; No focal Weakness Skin: No rash. Heart Score: C/O Chest Pain: N/A Risk Factors: Risk Factors: DM, Current or recent (<one month) smoker, HTN, HLP, family history of CAD, obesity. Risk Scores: Score 0 - 3: 2.5% MACE over next 6 weeks - Discharge Home Score 4 - 6: 20.3% MACE over next 6 weeks - Admit for Clinical Observation Score 7 - 10: 72.7% MACE over next 6 weeks - Early Invasive Strategies Current Medications: Current Medications Medications (Trade) Dose Ordered Sig/Tory Start Time Stop Time Status Last Admin Dose Admin Sodium Chloride 1,000 ml @ 1,000 mls/hr 1X ONCE 06/12/21 20:30 06/12/21 21:29 Allergies: Allergies: Allergies Coded Allergies Type Severity Reaction Last Updated Verified sulfamethoxazole Allergy Intermediate Rash 06/13/20 Yes trimethoprim Allergy Intermediate Rash 06/13/20 Yes I S O L A T I O N *CONTACT* Allergy Unknown 06/13/20 Yes Physical Exam: PE: Constitutional: Well developed, well nourished, no acute distress, non-toxic appearance. [] HENT: Normocephalic, atraumatic, bilateral external ears normal, oropharynx moist, no oral exudates, nose normal. [] Eyes: PERRLA, EOMI, conjunctiva normal, no discharge. [] Neck: Normal range of motion, no tenderness, supple, no stridor. [] Cardiovascular:Heart rate regular rhythm, no murmur [] Lungs & Thorax: Bilateral breath sounds clear to auscultation [] Abdomen: Bowel sounds normal, soft, no tenderness, no masses, no pulsatile masses. [] Skin: Warm, dry, no erythema, no rash. [] Back: No tenderness, no CVA tenderness. [] Extremities: No tenderness, no cyanosis, no clubbing, ROM intact, no edema. [] Neurologic: Alert and oriented X 3, normal motor function, normal sensory function, no focal deficits noted. [] Psychologic: Affect normal, judgement normal, mood normal. [] Current Patient Data: Labs: Laboratory Tests Test 06/12/21 20:00 White Blood Count 7.1 x10^3/uL (4.0-11.0) Red Blood Count 3.66 x10^6/uL (4.30-5.70) L Hemoglobin 7.6 g/dL (13.0-17.5) L Hematocrit 25.7 % (39.0-53.0) L Mean Corpuscular Volume 70 fL (79-100) L Mean Corpuscular Hemoglobin 21 pg (25-35) L Mean Corpuscular Hemoglobin Concent 30 g/dL (31-37) L Red Cell Distribution Width 20.4 % (11.5-14.5) H Platelet Count 344 x10^3/uL (140-400) Neutrophils (%) (Auto) 82 % (31-73) H Lymphocytes (%) (Auto) 10 % (24-48) L Monocytes (%) (Auto) 6 % (0-9) Eosinophils (%) (Auto) 1 % (0-3) Basophils (%) (Auto) 2 % (0-3) Neutrophils # (Auto) 5.8 x10^3/uL (1.8-7.7) Lymphocytes # (Auto) 0.7 x10^3/uL (1.0-4.8) L Monocytes # (Auto) 0.4 x10^3/uL (0.0-1.1) Eosinophils # (Auto) 0.0 x10^3/uL (0.0-0.7) Basophils # (Auto) 0.1 x10^3/uL (0.0-0.2) Platelet Estimate Pending Sodium Level 137 mmol/L (136-145) Potassium Level 4.7 mmol/L (3.5-5.1) Chloride Level 105 mmol/L (98-107) Carbon Dioxide Level 27 mmol/L (21-32) Anion Gap 5 (6-14) L Blood Urea Nitrogen 32 mg/dL (8-26) H Creatinine 1.5 mg/dL (0.7-1.3) H Estimated GFR (Cockcroft-Gault) 49.0 BUN/Creatinine Ratio 21 (6-20) H Glucose Level 192 mg/dL (70-99) H Calcium Level 8.1 mg/dL (8.5-10.1) L Total Bilirubin Pending Aspartate Amino Transferase (AST) Pending Alanine Aminotransferase (ALT) Pending Alkaline Phosphatase Pending Total Protein Pending Albumin Pending Albumin/Globulin Ratio Pending Lipase Pending Laboratory Tests 06/12/21 20:00 Laboratory Tests 06/12/21 20:00 Vital Signs: Vital Signs Date Time Temp Pulse Resp B/P (MAP) Pulse Ox O2 Delivery O2 Flow Rate FiO2 06/12/21 19:35 98.2 95 22 174/84 (92) 97 Room Air 98.2 EKG: EKG: [] Radiology/Procedures: Radiology/Procedures: [] Course & Med Decision Making: Course & Med Decision Making Pertinent Labs and Imaging studies reviewed. (See chart for details) [] Patient was evaluated for chief complaint. Work-up consisted of laboratory analysis. Results reviewed. Treatment included IV fluids. Patient was discharged home. Dragon Disclaimer: Dragon Disclaimer: This electronic medical record was generated, in whole or in part, using a voice recognition dictation system. Departure Departure Impression: Primary Impression: Weakness generalized Additional Impression: Dehydration Disposition: 01 HOME / SELF CARE / HOMELESS Condition: STABLE Referrals: PAT MOSHER MD (PCP) Patient Instructions: Dehydration, Adult, Weakness PALMER MCNEILL DO Jun 12, 2021 20:30
[2021-06-12 20:39] LABS: PLT ESTIMATE ADEQUATE (ADEQUATE)
[2021-06-12 20:41] LABS: ANISOCYTOSIS MOD; HYPOCHROMIA MOD; MICROCYTOSIS MOD
[2021-06-12 23:05] VITALS: BP 175/100
== END 2021-06-12 23:28 | disposition home or self-care (01) ==
LOC: ER 17:17
DX: E86.0 Dehydration (principal); R53.1 Weakness; E11.9 Type 2 diabetes mellitus without complications; I10 Essential (primary) hypertension; F17.200 Nicotine dependence, unspecified, uncomplicated; Z86.14 Personal history of Methicillin resistant Staphylococcus aureus infection; Z88.1 Allergy status to other antibiotic agents; Z88.2 Allergy status to sulfonamides; Z91.041 Radiographic dye allergy status
CPT/HCPCS: 36415; 80053; 83690; 85025; 96360; 96361; 99285; J7030

== ENCOUNTER → 2021-06-19 | Outpatient (CLI) | payer MEDICARE ==
[2021-06-12 23:05] VITALS: BP 175/100
[~2021-06-19] MED LIST changes: -DOXY100C2 PO; +DOXY100C3 PO
[2021-06-19 13:49] LABS: BASO # 0.1 x10^3/uL (0.0-0.2); BASO % 1 % (0-3); EOS # 0.1 x10^3/uL (0.0-0.7); EOS % 2 % (0-3); HEMATOCRIT 23.8 % (39.0-53.0); HEMOGLOBIN 7.1 g/dL (13.0-17.5); LYMPH # 0.6 x10^3/uL (1.0-4.8); LYMPH % 10 % (24-48); MEAN CORPUSCULAR HEMOGLOBIN 21 pg (25-35); MEAN CORPUSCULAR HGB CONC 30 g/dL (31-37); MEAN CORPUSCULAR VOLUME 70 fL (79-100); MONO # 0.4 x10^3/uL (0.0-1.1); MONO % 6 % (0-9); NEUT # 5.3 x10^3/uL (1.8-7.7); NEUT % 82 % (31-73); PLATELET COUNT 309 x10^3/uL (140-400); RED BLOOD COUNT 3.39 x10^6/uL (4.30-5.70); RED CELL DISTRIBUTION WIDTH 19.9 % (11.5-14.5); WHITE BLOOD COUNT 6.5 x10^3/uL (4.0-11.0)
[2021-06-19 13:57] LABS: CREATININE 1.4 mg/dL (0.7-1.3); POTASSIUM 4.8 mmol/L (3.5-5.1)
[2021-06-19 16:06] LABS: PLT ESTIMATE ADEQUATE (ADEQUATE)
[2021-06-19 16:07] LABS: ANISOCYTOSIS SLIGHT; HYPOCHROMIA MOD; MICROCYTOSIS MOD; POIKILOCYTOSIS SLIGHT
== END ==
LOC: LAB 13:15
PROVIDERS: ATTEND Emergency Medicine Undersea and Hyperbaric Medicine
DX: E11.52 Type 2 diabetes mellitus with diabetic peripheral angiopathy with gangrene (principal); L97.511 Non-pressure chronic ulcer of other part of right foot limited to breakdown of skin
CPT/HCPCS: 36415; 80048; 85025